=== PATIENT | female | born 1955 | race Caucasian/White ===

== ENCOUNTER 2024-04-20 08:14 | Emergency (ER) | payer MEDICARE, MEDICAID, SELFPAY ==
--- NOTE | ~2024-04-20 | CT_ITS ---
CT abdomen pelvis w con Ordering provider: Andres Johnson MD History: 68 years Female with . Suprapubic catheter pain, placed 03/24 . Comparison: None. Technique: CT abdomen and pelvis with IV and without oral contrast. Automated exposure control and it erative reconstruction technique were employed. The dose-length product was 530.55 mGy-cm. Findings: VISUALIZED LOWER CHEST: Underlying emphysematous changes.. UPPER ABDOMINAL ORGANS: Liver: Mild fat infiltration. Focal hypodensity is seen adjacent to the area of the interlobar fissur e suggestive of focal fat infiltration with possibility of a cyst in the area. Follow-up advised. Gallbladder: Status post cholecystectomy. Spleen: Normal. Stomach/duodenum: Small sliding hiatus hernia. Pancreas: Normal. Adrenals: Normal. Kidneys: Normal. PELVIC ORGANS: The bladder shows a suprapubic catheter. BOWEL AND MESENTERY: Colon: No evidence of diverticulitis. Fecal material is loaded in the colon. Appendix is not demonstr ated. Small Bowel: Normal. No obstruction. Peritoneum/mesentery: No free air or free fluid. No mesenteric lymphadenopathy. RETROPERITONEUM: Mild atheromatous disease of the abdominal aorta. Severe narrowing of the left comm on iliac artery. No retroperitoneal lymphadenopathy. MUSCULOSKELETAL: Superficial soft tissues: Anterior abdominal wall collection in the area of the pelvis is seen which measures 5.4 x 3.4 cm. This area is possibly a hematoma versus seroma versus urinoma. Further evaluat ion advised. Otherwise, The superficial soft tissues are normal. Bones: Age appropriate degenerative changes of the spine. IMPRESSION: 1. Suprapubic catheter with adjacent fluid collection which may be a seroma or hematoma or urinoma. 2. Constipation. Reviewed, dictated and finalized at location A. EACH LIBRARIAN
[2024-04-20 08:16] VITALS: BP 146/76; PULSE 95; RESP 18; TEMP 36.8; O2SAT 95
[2024-04-20 08:55] LABS: Basophils Percent Auto 0.3 % (0.2-1.2); Eosinophils Absolute Auto 0.3 K/mm3 (0-0.3); Eosinophils Percent Auto 4.2 % (0-4.4); Hematocrit 45.6 % (37.0-47.0); Hemoglobin 15.3 g/dL (12.0-15.0); Immature Granulocyte Absolute 0.02 K/mm3 (0.00-0.031); Immature Granulocyte Percent A 0.3 % (0-0.5); Lymphocytes Absolute Auto 1.34 K/mm3 (0.9-3.2); Lymphocytes Percent Auto 18.1 % (18.3-44.2); Mean Corpuscular HGB Conc 33.6 g/dl (32-36); Mean Corpuscular Hemoglobin 33.9 pg (26-34); Mean Corpuscular Volume 101.1 fl (80-100); Mean Platelet Volume 8.9 fl (7.4-10.4); Monocytes Absolute Auto 0.4 K/mm3 (0.1-0.6); Monocytes Percent Auto 5.8 % (2.6-8.5); Neutrophils Absolute Auto 5.3 K/mm3 (1.3-6.7); Neutrophils Percent Auto 71.3 % (45.5-73.1); Platelet Count Result 211 k/mm3 (150-375); Red Blood Count 4.51 M/mm3 (4.2-5.4); Red Cell Distribution Width 12.7 % (11.5-14.5); White Blood Count 7.4 K/mm3 (4.5-10.0)
[2024-04-20 09:03] LABS: Alanine Aminotransferase 21 U/L (6-35); Albumin Level 4.7 g/dL (3.5-5.1); Alkaline Phosphatase 59 U/L (38-126); Anion Gap 5 mmol/L (4-12); Aspartate Amino Transferase 27 U/L (14-36); Bilirubin,Total 0.3 mg/dL (0.2-1.3); Blood Urea Nitrogen 16 mg/dL (7-17); Calcium 9.7 mg/dL (8.4-10.2); Carbon Dioxide 32 mmol/L (22-30); Chloride 96 mmol/L (98-107); Estimated CRCL calculation 89 ml/min; Estimated Glomerular Filt Rate > 60; Glucose 127 mg/dL (65-110); Potassium 4.7 mmol/L (3.4-5.0); Sodium 133 mmol/L (137-145)
[2024-04-20] MEDS: HYDROmorphone HCL INJ (*CRX) 1 MG/ML SYR 0.5 MG IV PUSH ×2 (09:25→11:46)
[2024-04-20 09:27] LABS: Add Urine Microscopic? YES; Appearance Urine Cloudy (Clear); Bacteria Urine 4+ /hpf; Bilirubin Urine Negative (Negative); Blood Urine 3+ (Negative); Color Urine Yellow (Yellow); Glucose Urine UA Negative (Negative); Ketones Urine Negative (Negative); Leukocyte Esterase Ur 3+ LEU/UL (Negative); Need Manual Microscopic Reviewed; Nitrate Urine Negative (Negative); Non Pathogenic Casts 0-2; Protein Urine 2+ mg/dL (Negative); RBC Urine >100 /hpf (0-2); Specific Grav Ur 1.016 (1.001-1.035); Squamous Epithelial Cell Urine Few /hpf (Few); WBC Urine 51-100 /hpf (0-3); pH Urine 6.5 (5.0-9.0)
--- NOTE | 2024-04-20 10:17 | PC.NURSE ---
pt Sp02 dropped to 72%. pt placed on 2L 02. pt stated she wears oxygen at home when sleeping.
[2024-04-20 10:18] VITALS: BP 129/73; PULSE 95; RESP 18; O2SAT 98
--- NOTE | 2024-04-20 11:05 | PC.NURSE ---
Pt reports being incontinent of urine. Pt cleaned of urine with soap and water. Clean depend applied. Pt. verbalized appreciation. Pt repositioned in bed and provided with a warm blanket.
[2024-04-20 11:10] VITALS: BP 135/72; PULSE 85; RESP 16; O2SAT 99
[2024-04-20 11:48] VITALS: BP 127/64; PULSE 83; RESP 16; O2SAT 100
--- NOTE | 2024-04-20 11:51 | PC.NURSE ---
Pt saturated depend. Dirty depend removed, nida care performed and clean depend applied.
[2024-04-20 13:00] VITALS: BP 136/61; PULSE 87; RESP 16; O2SAT 97
--- NOTE | 2024-04-20 13:20 | PC.NURSE ---
Report called to [place] [facility]. All questions answered. Pt to be transferred via S ambulance.
--- NOTE | 2024-04-20 13:21 | ED_ITS ---
HPI - General Adult General Chief complaint: Urogenital-Female Stated complaint: abd pain Time Seen by Provider: 04/20/24 08:16 History of Present Illness HPI narrative: This is a 68-year-old female presenting ED with chief complaint of abdominal pain. She had a suprapubic catheter placed for neurogenic bladder at [facility] on March 24. Since then she has had leakage around the catheter and she has had increased pain and pressure at the site. The urine that is draining is dark but is still draining into the back. She is also having some urine from her urethra. She denies fevers chills nausea vomiting or diarrhea Related Data Home Medications Medication Instructions Recorded Confirmed acetaminophen 500 mg tablet 500 mg PO Q6H PRN 01/12/24 (Acetaminophen Extra Strength) amlodipine 2.5 mg tablet 2.5 mg PO DAILY 01/12/24 amlodipine 5 mg tablet 5 mg PO DAILY 01/12/24 atorvastatin 20 mg tablet 20 mg PO DAILY 01/12/24 biotin 1,000 mcg chewable tablet 1,000 mcg PO DAILY 01/12/24 blood sugar diagnostic 01/12/24 calcium-vit D3-ferrous fumarate tablet PO 01/12/24 600 mg-125 unit-18 mg tablet coenzyme Q10 100 mg capsule (Co 100 mg PO DAILY 01/12/24 Q-10) cyanocobalamin (vitamin B-12) 1,000 mcg PO DAILY 01/12/24 1,000 mcg capsule gabapentin 600 mg tablet 600 mg PO TID 01/12/24 lancets 01/12/24 levothyroxine 88 mcg capsule 88 mcg PO DAILY 01/12/24 liothyronine 5 mcg tablet 5 mcg PO DAILY 01/12/24 lysine 500 mg tablet (L-Lysine) 500 mg PO DAILY 01/12/24 metformin 500 mg tablet 500 mg PO BID 01/12/24 omega 1-wkj-myd-fish oil 300 1 cap PO TID 01/12/24 mg-1,000 mg capsule pramipexole 0.5 mg tablet 0.5 mg PO TID 01/12/24 tramadol 50 mg tablet 50 mg PO Q6H PRN 01/12/24 vitamins A,C,V-dsjb-dufeuq 2,148 2 tablet PO BID 01/12/24 mcg-113 mg-45 mg-17.4 mg tablet (PreserVision AREDS) Allergies Allergy/AdvReac Type Severity Reaction Status Date / Time baclofen Allergy eyes Verified 04/20/24 08:25 swollen cyclobenzaprine Allergy black outs Verified 04/20/24 08:25 1 CODIENE Allergy Unknown cold Uncoded 04/20/24 08:25 [facility] Past Medical History Medical History Allergies Arthritis Diabetes History of uterine cancer Thyroid disorder Surgical History Surgical History History of cholecystectomy Social History Social History Smoking packs per day: 1 Smoking cigarettes per day: 20.0 Smoking status: Current every day smoker Tobacco type: cigarettes Alcohol intake: never Substance use: never Substance use type: does not use Do You Feel Safe in your Home?: Yes Lack of Transportation: YES Lack of Food: Never True Current Housing: I Have Housing Concerned About Future Housing: No Difficulty Paying Gas/Electric Bills: No Difficulty Paying for Meds: No Currently Unemployed: No Education: Associate Degree Difficulty w/ Childcare or Family Care: No Exam Narrative: APPEARANCE: No apparent distress. Head: atraumatic. EYES: EOMI, NOSE: Atraumatic NECK: Trachea midline RESPIRATORY: No increased rate of breathing CARDIOVASCULAR: RRR, ABDOMINAL: Suprapubic catheter is in place, palpable tender mass superior to the catheter site, no surrounding erythema or redness, no cellulitis MUSCULOSKELETAl: No obvious deformities NEURO: Alert. Moving 4/4 extremities SKIN:: Warm, dry. Normal color PSYCHIATRIC: Normal affect Course Vital Signs Vital signs: Vital Signs Temperature 98.2 F 04/20/24 08:16 Pulse Rate 95 04/20/24 08:16 Respiratory Rate 18 04/20/24 08:16 Blood Pressure 146/76 H 04/20/24 08:16 Pulse Oximetry 95 04/20/24 08:16 Oxygen Delivery Room Air 04/20/24 08:16 Temperature 98.2 F 04/20/24 08:16 Pulse Rate 87 04/20/24 13:00 Respiratory Rate 16 04/20/24 13:00 Blood Pressure 136/61 04/20/24 13:00 Pulse Oximetry 97 04/20/24 13:00 Oxygen Delivery Room Air 04/20/24 08:16 Medical Decision Making MDM Narrative Medical decision making narrative: -Course: 68-year-old female presenting with pain around her suprapubic catheter site. CT abdomen pelvis showed a fluid collection around the site. Seroma versus abscess versus hematoma versus urinoma. Patient has no other signs of infection. Patient will be transferred to [facility] where her suprapubic catheter was installed for further management. Patient was accepted to the ED by Dr. Mcghee and Dr. Fernandes. -DDX includes but is not limited to:Seroma versus abscess versus hematoma versus urinoma. -Independent interpretation of studies: labs imaging reviewed -Discussion of Management/Consultants: Dr. Vides, Dr. Mcghee -Interventions:Dilaudid .5 x2 -Shared decision making / Disposition: transferred Vital Signs Vital Signs: Vital Signs Temperature 98.2 F 04/20/24 08:16 Pulse Rate 95 04/20/24 08:16 Respiratory Rate 18 04/20/24 08:16 Blood Pressure 146/76 H 04/20/24 08:16 Pulse Oximetry 95 04/20/24 08:16 Oxygen Delivery Room Air 04/20/24 08:16 Temperature 98.2 F 04/20/24 08:16 Pulse Rate 87 04/20/24 13:00 Respiratory Rate 16 04/20/24 13:00 Blood Pressure 136/61 04/20/24 13:00 Pulse Oximetry 97 04/20/24 13:00 Oxygen Delivery Room Air 04/20/24 08:16 Lab Data 04/20/24 08:49 04/20/24 08:49 Labs: Lab Results 04/20/24 04/20/24 Range/Units 08:44 08:49 WBC 7.4 (4.5-10.0) K/mm3 RBC 4.51 (4.2-5.4) M/mm3 Hgb 15.3 H (12.0-15.0) g/dL Hct 45.6 (37.0-47.0) % MCV 101.1 H (80-100) fl MCH 33.9 (26-34) pg MCHC 33.6 (32-36) g/dl RDW 12.7 (11.5-14.5) % Plt Count 211 (150-375) k/mm3 MPV 8.9 (7.4-10.4) fl Immature Gran % (Auto) 0.3 (0-0.5) % Neut % (Auto) 71.3 (45.5-73.1) % Lymph % (Auto) 18.1 L (18.3-44.2) % [place] % (Auto) 5.8 (2.6-8.5) % Eos % (Auto) 4.2 (0-4.4) % Baso % (Auto) 0.3 (0.2-1.2) % Lymph # (Auto) 1.34 (0.9-3.2) K/mm3 [place] # (Auto) 0.4 (0.1-0.6) K/mm3 Eos # (Auto) 0.3 (0-0.3) K/mm3 Baso # (Auto) 0.0 (0.0-0.1) K/mm3 Abs Immat Gran (auto) 0.02 (0.00-0.031) K/mm3 Absolute Neuts (auto) 5.3 (1.3-6.7) K/mm3 Absolute Nucleated RBC 0.000 (0.0-0.012) K/mm3 Nucleated RBC % 0.0 (0.0-0.2) % Sodium 133 L (137-145) mmol/L Potassium 4.7 (3.4-5.0) mmol/L Chloride 96 L (98-107) mmol/L Carbon Dioxide 32 H (22-30) mmol/L Anion Gap 5 (4-12) mmol/L BUN 16 (7-17) mg/dL Creatinine 0.50 L (0.7-1.0) mg/dL Estim Creat Clear Calc 89 ml/min Estimated GFR > 60 (59 - ) Glucose 127 H (65-110) mg/dL Calcium 9.7 (8.4-10.2) mg/dL Total Bilirubin 0.3 (0.2-1.3) mg/dL AST 27 (14-36) U/L ALT 21 (6-35) U/L Alkaline Phosphatase 59 (38-126) U/L Total Protein 8.0 (6.3-8.2) g/dL Albumin 4.7 (3.5-5.1) g/dL Urine Color Yellow (Yellow) Urine Appearance Cloudy H (Clear) Urine pH 6.5 (5.0-9.0) Ur Specific [place] 1.016 (1.001-1.035) Urine Protein 2+ H (Negative) mg/dL Urine Glucose (UA) Negative (Negative) mg/dL Urine Ketones Negative (Negative) mg/dL Ur Blood (Man) 3+ H (Negative) Urine Nitrate Negative (Negative) Urine Bilirubin Negative (Negative) Urine Urobilinogen 1.0 (<2.0) mg/dL Add Ur Microanalysis Reviewed Leukocyte Esterase Rfl 3+ H (Negative) JUAN/UL Urine RBC >100 H (0-2) /hpf Urine WBC 51-100 H (0-3) /hpf Ur Squamous Epith Cells Few (Few) /hpf Urine Bacteria 4+ H /hpf Urine Casts 0-2 Discharge Plan Discharge Clinical Impression: Urinoma Patient Disposition: Home, Self-Care Condition: Stable Instructions: Antibiotic Form Prescriptions: No Action acetaminophen [Acetaminophen Extra Strength] 500 mg tablet 500 mg PO Q6H PRN amlodipine 2.5 mg tablet 2.5 mg PO DAILY amlodipine 5 mg tablet 5 mg PO DAILY atorvastatin 20 mg tablet 20 mg PO DAILY biotin 1,000 mcg tablet,chewable 1,000 mcg PO DAILY fcfmeqi-[id number]-nmlgjqz fumarate 600-125-18 mg-unit-mg tablet PO coenzyme Q10 [Co Q-10] 100 mg capsule 100 mg PO DAILY omega 6-xoe-uex-fish oil 300-1,000 mg capsule 1 cap PO TID gabapentin 600 mg tablet 600 mg PO TID lysine [L-Lysine] 500 mg tablet 500 mg PO DAILY levothyroxine 88 mcg capsule 88 mcg PO DAILY liothyronine 5 mcg tablet 5 mcg PO DAILY metformin 500 mg tablet 500 mg PO BID (DME) lancets Misc See Rx Instructions .ROUTE Rx Instructions: As directed (DME) blood sugar diagnostic Strip See Rx Instructions .ROUTE Rx Instructions: As directed pramipexole 0.5 mg tablet 0.5 mg PO TID PreserVision AREDS 2,148 mcg-113 mg-45 mg-17.4mg tablet 2 tablet PO BID Rx Instructions: administer with AM and PM meals tramadol 50 mg tablet 50 mg PO Q6H PRN cyanocobalamin (vitamin B-12) 1,000 mcg capsule 1,000 mcg PO DAILY Follow-up/Referrals: Michelle,Kaye Pandey MD [Primary Care Provider] -
[2024-04-20 14:00] VITALS: BP 135/85; PULSE 85; RESP 16; O2SAT 95
[2024-04-20] MEDS: PRAMIPEXOLE 0.5 MG TABLET PO (14:11)
== END 2024-04-20 14:30 | disposition home or self-care (01) ==
PROVIDERS: Emergency Provider Emergency Medicine; PCP Emergency Medicine
DX: N36.8 Other specified disorders of urethra (principal); M19.90 Unspecified osteoarthritis, unspecified site; E11.9 Type 2 diabetes mellitus without complications; Z85.42 Personal history of malignant neoplasm of other parts of uterus; Z85.850 Personal history of malignant neoplasm of thyroid
CPT/HCPCS: 36415; 74177; 80053; 81001; 85025; 87086; 96374; 96376; 99284; A9270; J1171; Q9967

== ENCOUNTER 2024-08-09 10:31 | Outpatient (RCR) | payer MEDICARE, MEDICAID, SELFPAY ==
[2024-08-04 11:09] LABS: Hematocrit 37.3 % (37.0-47.0); Hemoglobin 11.5 g/dL (12.0-15.0); Mean Corpuscular HGB Conc 30.8 g/dl (32-36); Mean Corpuscular Hemoglobin 30.7 pg (26-34); Mean Corpuscular Volume 99.7 fl (80-100); Mean Platelet Volume 9.4 fl (7.4-10.4); Platelet Count Result 212 k/mm3 (150-375); Red Blood Count 3.74 M/mm3 (4.2-5.4); Red Cell Distribution Width 14.5 % (11.5-14.5); White Blood Count 5.5 K/mm3 (4.5-10.0)
[2024-08-04 11:28] LABS: Alanine Aminotransferase 32 U/L (6-35); Albumin Level 3.8 g/dL (3.5-5.1); Alkaline Phosphatase 77 U/L (38-126); Anion Gap 7 mmol/L (4-12); Aspartate Amino Transferase 48 U/L (14-36); Bilirubin,Total 0.3 mg/dL (0.2-1.3); Blood Urea Nitrogen 12 mg/dL (7-17); CRP 4.9 mg/dL (<1.0); Calcium 9.2 mg/dL (8.4-10.2); Carbon Dioxide 30 mmol/L (22-30); Chloride 102 mmol/L (98-107); Creatine Kinase 143 U/L (30-135); Estimated Glomerular Filt Rate > 60; Glucose 114 mg/dL (65-110); Potassium 4.5 mmol/L (3.4-5.0); Sodium 139 mmol/L (137-145)
--- OUTSIDE RECORDS SUMMARY | 2024-08-04 11:38 | XMS_ITS | CONTINUITY OF CARE DOCUMENT ---
Author Name danica jacquesdylan Address Unknown Organization [facility] Address [address] [place] [address] Phone [phone] Care Team Providers Care Mangle Feeder Name Role Phone Jose C Roberts MD Unavailable [phone] NGUYEN GUERRERO MD Unavailable [phone] NGUYEN GUERRERO MD Unavailable [phone] PROBLEMS Condition Status Date Provider Notes Chest pain active Jose C Roberts MD Leg edema, bilateral active Jose C Roberts MD Hypothyroidism active Jose C Roberts MD Hyperlipidemia active Jose C Roberts MD HTN essential active Jose C Roberts MD Insomnia active Jose C Roberts MD Neuropathy active Jose C Roberts MD Tobacco abuse active Jose C Roberts MD Hypertension active Jose C Roberts MD Preoperative cardiovascular examination active Jose C Roberts MD ENCOUNTERS Date Type Provider Location Encounter Diag nosis - In-person encounter Office Visit Jose C Roberts MD [place] [facility] - In-person encounter Office Visit Jose C Roberts MD [place] [facility] Preoperative cardiovascular examination - In-person encounter Office Visit Jose C Roberts MD [facility] Hypertension - In-person encounter Office Visit Jose C Roberts MD [place] [facility] Chest painLeg edema, bilateralHypothyroidismHyperlipidemiaHTN essentialInsomniaNeuropathyTobacco abuse VITAL SIGNS Date Observation Value Provider Body Mass Index (Ratio) 23.41 kg/m2 Natividad Roberts MD blood pressure, diastolic 69 mm[Hg] An genesis Cortes blood pressure, systolic 138 mm[Hg] Any jacquelin Cortes pulse rate 95 /min Azul Cortes oxygen saturation, oximetry 100 % Azul Cortes weight E&M 154 [lb_av] Azul Cortes blood pressure, cuff size large An genesis Cortes height E&M 68 [in_i] Azul Cortes Body Mass Index (Ratio) 24.93 kg/m2 Natividad Roberts MD blood pressure, cuff size regular Ke rri Nikuenekacie blood pressure, diastolic 81 mm[Hg] Ke rri Nikuenenfshine blood pressure, systolic 140 mm[Hg] Cam ri Dulce oxygen saturation, oximetry 96 % Valerie Dulce respiratory rate E&M 14 /min Valerie kevin pulse rate 96 /min Valerie West patiño weight E&M 164 [lb_av] Valerie Dericnenfe [facility] height E&M 68 [in_i] Valerie Nikuenenfe [facility] Body Mass Index (Ratio) 26.00 kg/m2 Natividad Roberts MD blood pressure, diastolic 96 mm[Hg] Ca therine Groves blood pressure, systolic 128 mm[Hg] Cat herine Groves oxygen saturation, oximetry 95 % Elizabet Leland respiratory rate E&M 16 /min Catheri ne Groves pulse rate 69 /min Elizabet Groves weight E&M 171 [lb_av] Elizabet Groves blood pressure, cuff size regular Ca therine Leland height E&M 68 [in_i] Elizabet Groves blood pressure, diastolic 70 mm[Hg] Li nkLogic blood pressure, systolic 130 mm[Hg] Ana kLogic Body Mass Index (Ratio) 25.85 kg/m2 Natividad Roberts MD blood pressure, diastolic 70 mm[Hg] Mecca Margret Blackman blood pressure, systolic 130 mm[Hg] Chrystal Gillettepadmini Blackman oxygen saturation, oximetry 97 % Tayla Blackman respiratory rate E&M 16 /min Karlee Blackman pulse rate 97 /min Tayla wells weight E&M 170 [lb_av] TaylaShobha wells height E&M 68 [in_i] Tayla Sabillon niallevita ALLERGIES Allergy Name Onset Date Reaction Criticality Status CODEINE High Criticality active BACLOFEN High Criticality active HISTORY OF MEDICATION USE Medication Status Instructions Dates Provider Indications Com ments losartan 100 mg tablet active TAKE 1 TABLET BY MOUTH DAILY Tayla Blackman loratadine 10 mg tablet active TAKE 1 TABLET BY MOUTH EVERY DAY IN THE MORNING Tayla Blackman norethindrone (contraceptive) 0.35 mg tablet active TAKE 1 TABLET BY MOUTH EVERY DAY Tayla Blackman pramipexole 0.5 mg tablet active TAKE 1 TABLET BY MOUTH THREE TIMES DAILY Tayla Blackman liothyronine 5 mcg tablet active TK 1 T PO QD B MEALS Tayla Blackman levothyroxine 88 mcg tablet active TAKE 1 TABLET BY MOUTH EVERY DAY Tayla Blackman amlodipine 5 mg tablet active TAKE 1 TABLET BY MOUTH EVERY DAY Tayla Blackman metformin 500 mg tablet active TK 1 T PO BID Tayla Blackman Combivent Respimat 20-100 mcg/actuation mist active 1 puff as directed four times a day Tayla Blackman dicyclomine 10 mg capsule active 1 capsule by mouth twice a day Tayla Blackman gabapentin 600 mg tablet active 1 tablet by mouth three times a day Tayla Blackman SOCIAL HISTORY Date Observation Value Provider social history E&M S moking History: Cesar candelaria currently smokes every day. Cesar candelaria has been counseled to quit. Jose C Roberts MD social history reviewed E&M revi ewed - no changes required Jose C Roberts MD smoking/tobacco cess ation, patient education and counseling yes Azul Sebastian number of years as a smoker 45 a Azul Sebastian smoking history, tot al pack/day 1 Azul Sebastian cigarette use yes Azul Sebastian smoking status Current every day smoker A alicia Sebastian social history E&M S moking History: Cesar candelaria currently smokes every day. P bari has been counseled to quit. Jose C Roberts MD social history reviewed E&M revi ewed - no changes required Jose C Roberts MD smoking/tobacco cess ation, patient education and counseling yes Valerie Cardona number of years as a smoker 45 a Valerie Cardona smoking history, tot al pack/day 1 Valerie Cardona cigarette use yes Valerie riojas smoking status Current every day smoker K erri Dulce smoking/tobacco cess ation, patient education and counseling yes Elizabet Groves number of years as a smoker 45 a Elizabet Groves smoking history, tot al pack/day 1 Elizabet Leland cigarette use yes Elizabet Leland smoking status Current every day smoker C atherine Groves smoking/tobacco cess ation, patient education and counseling yes Jose C Roberts MD social history E&M S moking History: P attamiko currently smokes every day. Jose C Roberts MD social history reviewed E&M vanessa cummings - no changes required Jose C Roberts MD number of years as a smoker 45 a Tayla Blackman smoking history, tot al pack/day 1 Tayla Blackman cigarette use yes Tayla Pedro chidi smoking status Current every day smoker Alexandr Blackman INSURANCE PROVIDERS Payer name Policy type / Coverage type [place] [employer] party ID UHC MEDICARE COMPLETE HMO Other [id number] [facility] Medicaid 9 [id number] ADVANCE DIRECTIVES Name Date DISCUSSED - NO DECISION MADE TREATMENT PLAN Date Name Performer [id number],C,S econdary to sitting in the wheelchair and probably due to some degree of pulmonary hypertension due to smoking. Jose C Roberts MD [id number],S, Jose C Roberts MD [id number],S, B P today: 138/69 P rior BP: 140/81 (04/11/2022) Her updated medication list for this problem includes: Losartan 100 Mg Tablet (Losartan) ..... Take 1 tablet by mouth daily Amlodipine 5 Mg Tablet (Amlodipine) ..... Take 1 tablet by mouth every day Jose C Roberts MD [id number],S, Jose C Roberts MD [id number],S, P t tests came back okay. Her heart function was normal. She does not have any blood clots in her legs from her venous study. Jose C Roberts MD [id number],C,I n the absense of any Sx related to ACS, I think she is low risk for her surgery and is clear Jose C Roberts MD [id number],B,W ill check echo otherwise a venous ultrasound to rule out DVT in the legs Jose C Roberts MD [id number],S, Jose C Roberts MD [id number],S, B P today: 140/81 P rior BP: 128/96 (10/11/2021) Jose C Roberts MD [id number],C,T he Patient was reencouraged to stop smoking. Jose C Roberts MD [id number],S,Counseled reg arding cessation Linette Rutledge NP [id number],S, Linette phillips NP [id number],B, H er updated medication list for this problem includes: Losartan 100 Mg Tablet (Losartan) ..... Take 1 tablet by mouth daily Amlodipine 5 Mg Tablet (Amlodipine) ..... Take 1 tablet by mouth every day Linette Rutledge NP [id number],B,L ower ext venous and arterial studies normal. Edema improved. No further testing indicated at this time. Echo showed normal EF with diastolic dysfunction Linette Rutledge NP [id number],C,1 ppd, advise d to quit. Jose C Roberts MD [id number],C,will do echo Jose C Roberts MD [id number],C,w ill do venous doppler reflux to assess. Jose C Roberts MD Cardiology:Secondary to sitting in the wheelchair and probably due to some degree of pulmonary hypertension due to smoking. Jose C Roberts MD Cardiology Jose C Roberts MD Cardiology: B P today: 138/69 P rior BP: 140/81 (04/11/2022) Her updated medication list for this problem includes: Losartan 100 Mg Tablet (Losartan) ..... Take 1 tablet by mouth daily Amlodipine 5 Mg Tablet (Amlodipine) ..... Take 1 tablet by mouth every day Jose C Roberts MD Telehealth Jose C Roberts MD Telehealth: P t tests came back okay. Her heart function was normal. She does not have any blood clots in her legs from her venous study. Jose C Roberts MD Cardiology:In the ab sense of any Sx related to ACS, I think she is low risk for her surgery and is clear Jose C Roberts MD Cardiology:Will chec k echo otherwise a venous ultrasound to rule out DVT in the legs Jose C Roberts MD Cardiology Jose C Roberts MD Cardiology: B P today: 140/81 P rior BP: 128/96 (10/11/2021) Jose C Roberts MD Cardiology:The Patient was reenc ouraged to stop smoking. Jose C Roberts MD Cardiology:Counseled regarding c essation Linette Rutledge NP Cardiology Linette Sykes P Cardiology: H er updated medication list for this problem includes: Losartan 100 Mg Tablet (Losartan) ..... Take 1 tablet by mouth daily Amlodipine 5 Mg Tablet (Amlodipine) ..... Take 1 tablet by mouth every day Linette Rutledge NP Cardiology:Lower ext venous and arterial studies normal. Edema improved. No further testing indicated at this time. Echo showed normal EF with diastolic dysfunction Linette Rutledge NP Cardiology:1 ppd, advised to antwan tGretta Roberts MD Cardiology:will do echo Jose C joyce MD Cardiology:will do venous dopple r reflux to assess. Jose C Roberts MD Date Name Complete Echo Venous Doppler Bilat eral LE - Reflux Arterial Duplex Bi-L ower EX Venous Doppler Bilat eral LE - Reflux Complete Echo HISTORY OF PROCEDURES Procedure Date Procedure Name Provider Procedure Notes S tatus EKG Jose C Roberts MD completed EKG Jose C Roberts MD completed
--- OUTSIDE RECORDS SUMMARY | 2024-08-04 11:38 | XMS_ITS | Data Portability ---
Author Organization [place] [facility] [employer], Main Office Address [address] [place] [address] Care Team Providers Care Food Service Driver Name Role Phone NGUYEN GUERRERO Primary Care Provider [phone] NGUYEN GUERRERO Referring Provider Assessment Encounter Date Assessment Date Assessment LastModified by Organization Details LastModified Time 10/30/2022 10/30/2022 This note is dictated and transcribed by [employer]. Judicial Assistant variances may occur. Despite proofreading, typographical errors may occur. [email or web address] Not available 10/30/2022 17:36:08 05/12/2023 05/12/2023 This note is dictated and transcribed by [employer]. Judicial Assistant variances may occur. Despite proofreading, typographical errors may occur. Occasional wrong-word or '[id number]' substitutions may have occurred due to the inherent limitations of voice recording. Read the chart carefully and recognize, using context, where substitutions have occurred. Not available 05/12/2023 11:28:58 06/23/2023 06/23/2023 This note is dictated and transcribed by [employer]. Judicial Assistant variances may occur. Despite proofreading, typographical errors may occur. Occasional wrong-word or '[id number]' substitutions may have occurred due to the inherent limitations of voice recording. Read the chart carefully and recognize, using context, where substitutions have occurred. Not available 06/25/2023 11:27:26 Plan of Treatment Reminders Order Date Submit Date Provider Last Modified By Organization Details Last Modified Time Details Appointments None recorded. Lab None recorded. Referral None recorded. Procedures None recorded. Surgeries None recorded. Imaging US, duplex, arterial, lower extremity, complete 2022 023 [facility] ([facility]), [address] [place], [address], 3 15:13:54 Medication Orders ammonium lactate 12 % lotion 2022 023 [id number], [address], [place], [place], [id number], 12:45:46 Patient TargetsNo targets recorded. Patient InstructionsNo instructions recorded. Reason for Referral None Reported. Results Created Date Observation Date Name Description Value Unit Range Abnormal Flag Note LastModifiedBy Organization Detail LastModifiedTime 07/24/1903/21/2022 LDCT, chest , for lung cance r david reed No observ ation record ed. [id number] Not Available 07/30/2022 04:52:09 05/29/20 23 05/27/2023 US, duple x, arter ial, lower extre mity, compl ete No observ ation record ed. [address] [place] [address] [address] [place], [address], 06/03/2023 10:32:50 04/01/20 24 03/31/2024 compl ete PFT w/ post [facility] hodil ator maxine metry * No observ ation record ed. BARCODE Not Available 2023 12:48:02 04/20/20 24 04/20/2024 CT, abdom en + pelvi s, w/ contr ast No observ ation record ed. [address], [place], [address], 04/20/2024 12:08:20 Result Notes None recorded. Problems Name Problem SNOMED Code Status Onset Date Resolution Date Notes Provider Name and Address Organization Details Recorded Time Overactive urinary bladder 962377505 Active 2022 David Shah MD [address] [facility], [place], [address] , [place] [facility] [employer] [facility] 3 10:15:19 Obstructive sleep apnea syndrome 51963165 Active 2022 Palma Haro MA null, [employer] [facility] 3 16:23:32 Dystrophia unguium 86089286 Active 2022 Hema Wood DPM [address], [address], [place], [address] , [employer] 3 17:36:12 Severe dry skin 102596925 Active 2022 Hema Wood DPM [address], [address], [place], [address] , [facility] [employer] 3 12:45:26 Peripheral arterial occlusive disease 398181192 Active 2022 Hema Wood DPM [address], [address], [place], [address] , [facility] [employer] 3 11:28:03 Cigarette smoker 05779697 Active 2022 Hema Wood DPM [address], [address], [place], [address] , [facility] 3 11:28:36 Dry skin dermatitis 516974726 Active 2021 Not Available [facility] 3 04:45:04 Osteoarthriti s 871887391 Active Not Available [facility] 3 04:45:04 Dyspnea on exertion 39659285 Active 2022 Not Available [facility] 3 04:45:04 Diabetes mellitus 52636996 Active Not Available [facility] 3 04:45:04 Sleep apnea 19113910 Active 2022 Not Available [facility] 3 04:45:04 Notes:Medical History: Depre ssion Ocular migraines Allergic conjunctivitis Allergic rhinitis with postnasal drip Bruxism Eosinophils 150/uL IgE 22 IU/mL Carotid artery stenosis Early REM sleep Mild OSAHS, AHI = 6, 10/04/21 Hypothyroidism Hyperlipidemia Hypertension T2DM with neuropathy AAT PiMM 152 mg% Nicotine dependence ?COPD on Trilogy c/o [facility] Hiatal hernia with TAMIKO Hepatic steatosis Diverticulosis/Diverticulitis Diarrhea-predominant IBS Vit D deficiency Sternal fracture RLS Cervical radiculopathy CTS Fibromyalgia Procedure History: Right breast lumpectomy 1971 WILNER 1985 Appendectomy 1989 Cholecystectomy 1994 Bilateral cataract extractions with IOL 2017 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 Procedures Surgical History Date Name Laterality Status Provider Name and Address Organization Details Recorded Time 05/12/20 23 Nail Debridement completed Hema Wood DPM [address], [place], [address], [employer] 05/12/2023 11:45:53 02/11/20 23 Nail Debridement completed Hema Wood DPM [address], [address], [place], [address], [employer] 02/12/2023 14:14:32 10/31/19 23 Nail Debridement completed Hema Wood DPM [address], [place], [address], [employer] 10/30/2022 17:35:03 Appendectomy completed Not Available [facility] 07/30/2022 04:40:56 Hysterectomy, Partial completed Not Available [facility] 07/30/2022 04:40:56 Breast Biopsy completed Not Available [facility] 07/30/2022 04:40:56 Cataract Surgery completed Not Available [facility] 07/30/2022 04:40:56 Imaging Results Imaging Date Name Status LastModified by Organization Details LastModified Time 03/21/2022 LDCT, chest, for lung cancer screening completed [id number] Information not available 07/30/2022 04:52:09 05/27/2023 US, duplex, arterial, lower extremity, complete completed [address], [place], [address], 06/03/2023 10:32:50 03/31/2024 complete PFT w/ post bronchodilator spirometry* completed BARCODE Information not available 04/01/2024 12:48:02 04/20/2024 CT, abdomen + pelvis, w/ contrast completed [place] [address] [facility] [address], [place], [address], 04/20/2024 12:08:20 Procedure Notes None recorded. Medical Equipment None Reported. Allergies Allergen ID Allergen Name Allergen Category Reaction Reaction Severity Criticality Documentation Date Start Date Code Code System Note Provider Name and Address Organization Details Recorded Time 6880 cyclobenz aprine medicatio n Not available Not available Not available 07/30/2022 44840 RxNorm Not Available [facility] 3 04:51:45 6881 codeine medicatio n Not available Not available Not available 07/30/2022 2670 RxNorm Not Available [facility] 3 04:51:45 6882 baclofen medicatio n Not available Not available Not available 07/30/2022 1292 RxNorm Not Available [facility] 3 04:51:45 Medications Name Sig Start Date Stop Date Status Note LastModified by Organization Details LastModified Time cyclobenzap rine 10 mg tablet TK 1 T PO QD HS active Not Available Not Available No t Available amoxicillin 500 mg capsule 09/16 completed Not Available Not Available Not Available pramipexole 1 mg tablet TK 1 T PO BID. 09/16 completed Not Available Not Available Not Available metformin 500 mg tablet TAKE 1 TABLET BY MOUTH TWICE DAILY active Not Available Not Available No t Available Tylenol 500 mg capsule Take 2 tablets every 6 hours by oral route. 07/10 completed Not Available Not Available Not Available gabapentin 600 mg tablet TAKE 1 TABLET BY MOUTH THREE TIMES DAILY DIRECTED active Not Available Not Available No t Available doxycycline hyclate 100 mg capsule TAKE ONE CAPSULE BY MOUTH DAILY 09/16 completed Not Available Not Available Not Available atorvastati n 20 mg tablet active Not Available Not Available Not Available ammonium lactate 12 % lotion APPLY TOPICALLY TO FEET TWICE DAILY NEEDED active Not Available Not Available No t Available trazodone 50 mg tablet TAKE 1/2 TO 1 TABLET BY MOUTH EVERY NIGHT AT BEDTIME 03/20 completed Not Available Not Available Not Available atorvastati n 10 mg tablet TK 1 T PO QD. 01/14 completed Not Available Not Available Not Available oxybutynin chloride ER 10 mg tablet,exte nded release 24 hr active Not Available Not Available Not Available azithromyci n 250 mg tablet TK 2 TS PO ON DAY 1, THEN TK 1 T PO D FOR 4 DAYS AFTER A MEAL. active Not Available Not Available No t Available ibuprofen 800 mg tablet TAKE 1 TABLET BY MOUTH THREE TIMES DAILY WITH FOOD 09/16 completed Not Available Not Available Not Available fluconazole 150 mg tablet TAKE 1 BY MOUTH EVERY 2 WEEKS active Not Available Not Available No t Available sumatriptan 100 mg tablet TK 1 T PO PRN active Not Available Not Available No t Available tolterodine ER 4 mg capsule,ext ended release 24 hr active Not Available Not Available Not Available Nystop 100,000 unit/gram topical powder 09/16 completed Not Available Not Available Not Available sodium bicarbonate 325 mg tablet TAKE 1 TABLET BY MOUTH TWICE DAILY active Not Available Not Available No t Available meloxicam 15 mg tablet TK 1 T PO QD WAC active Not Available Not Available No t Available prednisone 20 mg tablet TAKE 3 TABLETS BY MOUTH DAILY 09/16 completed Not Available Not Available Not Available gabapentin 400 mg capsule 09/16 completed Not Available Not Available Not Available olanzapine 5 mg tablet 09/16 completed Not Available Not Available Not Available olanzapine 10 mg tablet 03/20 completed Not Available Not Available Not Available amlodipine 2.5 mg tablet TAKE 1 TABLET BY MOUTH DAILY IN THE MORNING 09/16 completed Not Available Not Available Not Available amlodipine 5 mg tablet TAKE 1 TABLET BY MOUTH EVERY DAY active Not Available Not Available No t Available ciprofloxac in 500 mg tablet TAKE 1 TABLET BY MOUTH EVERY 12 HOURS FOR 10 DAYS 01/10 completed Not Available Not Available Not Available sulfamethox azole 800 mg-trimetho prim 160 mg tablet TAKE 1 TABLET BY MOUTH EVERY 12 HOURS FOR 5 DAYS active Not Available Not Available No t Available liothyronin e 5 mcg tablet TAKE 1 TABLET BY MOUTH EVERY DAY BEFORE A MEAL active Not Available Not Available No t Available aspirin 81 mg tablet,elver yed release TAKE 1 TABLET BY MOUTH EVERY DAY active Not Available Not Available No t Available tramadol 50 mg tablet TAKE 1 TABLET BY MOUTH EVERY 4 TO 6 HOURS NEEDED active Not Available Not Available No t Available triamcinolo ne acetonide 0.1 % topical cream APPLY A THIN LAYER TO THE AFFECTED AREA(S) BY TOPICAL ROUTE daily active Not Available Not Available No t Available pramipexole 0.5 mg tablet TAKE 1 TABLET BY MOUTH THREE TIMES DAILY active Not Available Not Available No t Available levothyroxi ne 88 mcg tablet TAKE 1 TABLET BY MOUTH EVERY DAY active Not Available Not Available No t Available famotidine 20 mg tablet TK 1 T PO QD. 03/20 completed Not Available Not Available Not Available estradiol 1 mg tablet TAKE 1 TABLET BY MOUTH DAILY 09/16 completed Not Available Not Available Not Available gabapentin 800 mg tablet 09/16 completed Not Available Not Available Not Available cephalexin 500 mg capsule active Not Available Not Available Not Available nystatin 100,000 unit/gram topical cream APPLY TOPICALLY TO THE AFFECTED AREA TWICE DAILY 07/10 completed Not Available Not Available Not Available clotrimazol e-betametha sone 1 %-0.05 % topical cream DARRYL AA OF GROIN BID 09/19 completed Not Available Not Available Not Available L-Lysine 1,000 mg tablet Take by oral route. 07/10 completed Not Available Not Available Not Available gabapentin 300 mg capsule 09/16 completed Not Available Not Available Not Available alcohol swabs USE TO CHECK BLOOD SUGAR ONCE DAILY active Not Available Not Available No t Available gabapentin 100 mg capsule TK 1 C PO TID. 09/19 completed Not Available Not Available Not Available estradiol 0.5 mg tablet TAKE 1 TABLET BY MOUTH EVERY DAY 03/20 completed Not Available Not Available Not Available ibuprofen 600 mg tablet 09/16 completed Not Available Not Available Not Available estradiol 0.01% (0.1 mg/gram) vaginal cream active Not Available Not Available Not Available albuterol sulfate HFA 90 mcg/actuati on aerosol inhaler INHALE 2 PUFFS BY MOUTH EVERY 4 HOURS NEEDED 03/20 completed Not Available Not Available Not Available Vitamin D2 1,250 mcg (50,000 unit) capsule active Not Available Not Available Not Available norethindro ne (contracept linwood) 0.35 mg tablet TAKE 1 TABLET BY MOUTH EVERY DAY 03/20 completed Not Available Not Available Not Available losartan 100 mg tablet TAKE 1 TABLET BY MOUTH DAILY active Not Available Not Available No t Available fluticasone propionate 50 mcg/actuati on nasal spray,suspe nsion SHAKE LIQUID AND USE 1 SPRAY IN EACH NOSTRIL TWICE DAILY 03/20 completed Not Available Not Available Not Available metformin ER 500 mg tablet,exte nded release 24 hr TAKE 1 TABLET BY MOUTH EVERY DAY active Not Available Not Available No t Available dicyclomine 10 mg capsule TAKE 1 CAPSULE BY MOUTH TWICE DAILY 30 MINUTES BEFORE FOOD. MAY INCREASE TO 4 TIMES DAILY NEEDED active Not Available Not Available No t Available loratadine 10 mg tablet TAKE 1 TABLET BY MOUTH EVERY DAY IN THE MORNING active Not Available Not Available No t Available glipizide 5 mg tablet TK 1/2 T PO BID. 03/20 completed Not Available Not Available Not Available progesteron e micronized 100 mg capsule TAKE 1 CAPSULE BY MOUTH DAILY 03/20 completed Not Available Not Available Not Available amoxicillin 875 mg-potassiu m clavulanate 125 mg tablet TAKE 1 TABLET BY MOUTH TWICE DAILY active Not Available Not Available No t Available amoxicillin 500 mg-potassiu m clavulanate 125 mg tablet TAKE 1 TABLET BY MOUTH EVERY 12 HOURS FOR 5 DAYS active Not Available Not Available No t Available oxycodone 5 mg tablet active Not Available Not Available No t Available nitrofurant oin monohydrate /macrocryst als 100 mg capsule TAKE 1 CAPSULE BY MOUTH EVERY 12 HOURS FOR 5 DAYS active Not Available Not Available No t Available duloxetine 30 mg capsule,del ayed release TAKE 1 CAPSULE BY MOUTH EVERY DAY AT NOON FOR 7 DAYS active Not Available Not Available No t Available duloxetine 60 mg capsule,del ayed release TAKE 1 CAPSULE BY MOUTH EVERY DAY IN THE EVENING 03/20 completed Not Available Not Available Not Available omega-3 acid ethyl esters 1 gram capsule TAKE 2 CAPSULES BY MOUTH TWICE DAILY AFTER MEALS active Not Available Not Available No t Available darifenacin ER 15 mg tablet,exte nded release 24 hr active Not Available Not Available Not Available Fish Oil 07/10 completed Not Available Not Available Not Available Calcium 600 07/10 completed Not Available Not Available Not Available aripiprazol e 2 mg tablet TK 1 T PO QD. 03/20 completed Not Available Not Available Not Available calcium 600 mg (as carbonate)- vitamin D3 10 mcg (400 unit) tablet TAKE 2 TABLETS BY MOUTH ONCE DAILY DIRECTED active Not Available Not Available No t Available hydrochloro thiazide 12.5 mg tablet TAKE 1 TABLET BY MOUTH EVERY DAY active Not Available Not Available No t Available budesonide- formoterol HFA 160 mcg-4.5 mcg/actuati on aerosol inhaler INHALE 2 PUFFS BY MOUTH TWICE DAILY 03/20 completed Not Available Not Available Not Available Calcium 500 With D 500 mg-10 mcg (400 unit) tablet TAKE 2 TABLETS BY MOUTH EVERY DAY DIRECTED active Not Available Not Available No t Available cholecalcif ashwini (vitamin D3) 1,250 mcg (50,000 unit) capsule TAKE ONE CAPSULE BY MOUTH EVERY WEEK DIRECTED . active Not Available Not Available No t Available trospium ER 60 mg capsule,ext ended release 24 hr active Not Available Not Available Not Available OneTouch Verio test strips USE TO CHECK BLOOD SUGAR ONCE DAILY active Not Available Not Available No t Available Combivent Respimat 20 mcg-100 mcg/actuati on solution for inhalation INHALE 1 INHALATIO N BY MOUTH FOUR TIMES DAILY FOR 10 DAYS NEEDED 03/20 completed Not Available Not Available Not Available Myrbetriq 50 mg tablet,exte nded release TAKE 1 TABLET BY MOUTH EVERY DAY active Not Available Not Available No t Available OneTouch Verio Flex Meter 09/16 completed Not Available Not Available Not Available OneTouch Delica Plus Lancet 33 gauge USE TO CHECK BLOOD SUGAR ONCE EVERY DAY 07/10 completed Not Available Not Available Not Available OneTouch Delica Plus Lancet 30 gauge USE TO CHECK BLOOD SUGAR ONCE DAILY active Not Available Not Available No t Available Vitals Date Recorded Body height Oxygen saturation Oxygen saturation in Arterial blood by Pulse oximetry Heart rate Body temperature Provider Name and Address Organization Details Last Updated DateTime 3 172.72 cm 93 % 93 % 99 /min 97.7 [degF] Not Available [facility] 3 04:43:16 Date Recorded Body height Heart rate Respiratory rate Oxygen saturation Oxygen saturation in Arterial blood by Pulse oximetry Systolic blood pressure Diastolic blood pressure Provider Name and Address Organization Details Last Updated DateTime 3 172.72 cm 104 /min 14 /min 97 % 97 % 106 mm[Hg] 60 mm[Hg] Dee Dee Raymundo Faisal AL [employer] [place] [facility] 3 16:58:39 Date Recorded Body height Heart rate Respiratory rate Oxygen saturation Oxygen saturation in Arterial blood by Pulse oximetry Systolic blood pressure Diastolic blood pressure Provider Name and Address Organization Details Last Updated DateTime 3 172.72 cm 104 /min 14 /min 97 % 97 % 106 mm[Hg] 60 mm[Hg] Mimi Sheldon [facility] [employer] [facility] 3 16:03:05 Date Recorded Body height Heart rate Respiratory rate Oxygen saturation Oxygen saturation in Arterial blood by Pulse oximetry Systolic blood pressure Diastolic blood pressure Provider Name and Address Organization Details Last Updated DateTime 3 172.72 cm 96 /min 14 /min 98 % 98 % 111 mm[Hg] 63 mm[Hg] Dee Dee Hearn [place] [facility] [employer] [place] [facility] 3 11:18:28 Social History Question Answer Notes LastModified by Organizat ion Details LastModified Time Tobacco Smoking Status Current Every Day Smoker Not Available [facility] 07/30/2022 04:29:52 What Is Your Level Of Caffeine Consumption? Moderate [id number] Information not available 07/30/2022 In The 14 Days Before Symptom Onset, Have You Had Close Contact With A Laboratory-confir med COVID-19 While That Case Was Ill? No [id number] Information not available 07/30/2022 In The 14 Days Before Symptom Onset, Have You Had Close Contact With A Person Who Is Under Investigation For COVID-19 While That Person Was Ill? No [id number] Information not available 07/30/2022 What Was The Date Of Your Most Recent Tobacco Screening? 01/14/2022 [id number] Information not available 07/30/2022 What Is Your Current Pack Years? 30ormorepack years [id number] Information not available 07/30/2022 How Much Tobacco Do You Smoke? 1 PPD 1-2 Packs A Day [id number] Information not available 07/30/2022 Do You Use Any Illicit Or Recreational Drugs? No [id number] Information not available 07/30/2022 Has Tobacco Cessation Counseling Been Provided? No [id number] Information not available 07/30/2022 Have You Recently Traveled Abroad? No [id number] Information not available 07/30/2022 Do You Or Have You Ever Used Any Other Forms Of Tobacco Or Nicotine? No [id number] Information not available 07/30/2022 Sex: Unknown Functional Status None recorded. Mental Status None recorded. Family History Relationship Description Onset Age of this Age Resolved Age Notes LastModified by Organization Details LastModified Time Mother Malignant tumor of ovary [id number] Not available 07/30/2022 04:41:00 Mother Hypertensive disorder [id number] Not available 07/30/2022 04:41:00 Sister Malignant tumor of breast [id number] Not available 07/30/2022 04:41:00 Maternal Aunt Malignant tumor of breast [id number] Not available 07/30/2022 04:41:00 Maternal Aunt Malignant tumor of colon [id number] Not available 07/30/2022 04:41:00 Maternal Grandmother Malignant tumor of cervix [id number] Not available 07/30/2022 04:41:00 Medical History Condition Response CYSTITIS N BLINDNESS N RHEUMATIC FEVER N KIDNEY STONES N BLADDER PROBLEMS N Enlarged Prostate N SLEEP APNEA N MRSA N INFECTIOUS DISEASE N LUNG DISEASE/DISORDER N HEART ARRHYTHMIA N PROSTATE N INSOMNIA N HISTORY OF DRUG ABUSE N RADIATION / CHEMOTHERAPY N COPD N HIGH CHOLESTEROL / HYPERLIPIDEMIA N HYPERTHYROIDISM N UTI N BLOOD DISEASES N EDEMA N HYPOTHYROIDISM N SHINGLES N DEPRESSION (INCLUDING POST ) N BOWEL PROBLEMS N BACK / NECK PROBLEMS N HAVE YOU BEEN HOSPITALIZED OR SEEN IN [facility] ER IN THE PAST YEAR ? N STROKE/TIA N THYROID DISEASE N BENIGN PROSTATIC HYPERPLASIA N DIALYSIS N OBESITY N GERD/NAUSEA N ANEURYSM N OSTEOPOROSIS N URINARY/BLADDER/KIDNEY PROBLEMS N Increased Urination N CORONARY ARTERY DISEASE (CAD) N ARTHRITIS Y USE OF BLOOD THINNERS N NO SIGNIFICANT PAST MEDICAL HISTORY N DIABETES, TYPE Y EMPHYSEMA N PARKINSON N GASTROINTESTINAL DISORDER N GASTROINTESTINAL BLEEDING N BLOOD CLOTS N Difficulty Urinating N HEPATITIS / LIVER DISEASE N ASTHMA N CATARACTS Y GOUT N SLEEP DISORDER N ALZHEIMER'S DISEASE N HERPES N ERECTILE DYSFUNCTION N SEIZURES/EPILEPSY N HEADACHES/MIGRAINES N GI PROBLEMS N PACEMAKER N Low Testosterone N HEART MURMUR N DIZZINESS N KIDNEY DISEASE N HEART DISEASE/HEART PROBLEMS N AIDS/HIV N MULTIPLE SCLEROSIS N LIVER DISEASE N MALE HYPOGONADISM N HYPERTENSION Y CANCER: SPECIFY N TOURETTE'S N BLOOD TRANSFUSION N ANESTHESIA COMPLICATIONS N ANEMIA/BLOOD DISORDER N ATRIAL FIBRILLATION N AUTOIMMUNE DISEASE N TUBERCULOSIS N GLAUCOMA N Gynecological HistoryNo gynecological history recorded. Obstetrics History GPAL:G 0 P 0 0 0 0 Immunizations Vaccine Type Date Status Note Provider Nam e and Address Organization Details Recorded Time COVID-19, mRNA, LNP-S, PF, 100 mcg/0.5mL dose or 50 mcg/0.25mL dose 09/23/2021 completed Not Available [facility] 3 04:51:37 COVID-19, mRNA, LNP-S, PF, 100 mcg/0.5mL dose or 50 mcg/0.25mL dose 04/08/2021 completed Not Available [facility] 3 04:51:37 COVID-19, mRNA, LNP-S, PF, 100 mcg/0.5mL dose or 50 mcg/0.25mL dose 08/24/2020 completed Not Available [facility] 3 04:51:37 COVID-19, mRNA, LNP-S, PF, 100 mcg/0.5mL dose or 50 mcg/0.25mL dose 07/27/2020 completed Not Available [facility] 3 04:51:37 Past Encounters Encounter ID Performer Location Encounter Start Date Encounter Closed Date Diagnosis/Indication Diagnosis SNOMED-CT Code Diagnosis ICD10 Code Diagnosis Note [id number] _ATHENA_M IGRATION_ DEFAULT_1 _1 , 09/07/2020 00:00:00 09/13/2020 09:23:31 [id number] _ATHENA_M IGRATION_ DEFAULT_1 _1 , 12/07/2020 00:00:00 12/10/2020 08:34:36 [id number] _ATHENA_M IGRATION_ DEFAULT_1 _1 , 03/08/2021 00:00:00 03/11/2021 10:38:14 [id number] _ATHENA_M IGRATION_ DEFAULT_1 _1 , 06/14/2021 00:00:00 06/17/2021 14:07:58 [id number] [facility] [address] [address] 09/26/2021 00:00:00 11/11/2021 17:17:31 [id number] _ATHENA_M IGRATION_ DEFAULT_1 _1 , 10/18/2021 00:00:00 10/21/2021 09:52:59 [id number] [facility] [place] 25 [place] [address], [facility] [address] [place] [address] 01/14/2022 00:00:00 01/14/2022 10:43:06 [id number] [facility] [address], [address] [address] 03/20/2022 00:00:00 04/03/2022 09:16:35 [id number] [facility] [address] [address] 07/17/2022 00:00:00 07/17/2022 13:22:21 [id number] Hema Wood DPM [facility] Pod[facility] [address], [address] [address] 10/30/2022 16:27:42 10/30/2022 17:41:34 Diabetes mellitus 43428567 E11.40 L60.0 M79.676 Z74.1 Continue with PCP recommenda tions Dystrophia unguium 33178 009 L60.3 Nails 1 through 10 were debrided with sharp mechanical debridemen t without incident. Nails were debrided and greater than 50% length and thickness where needed. [id number] eHma Wood DPM [facility] Pod[facility]ry [address], [address] [address] 02/10/2023 12:21:37 02/13/2023 10:55:26 Diabetes mellitus 42175250 E11.40 L60.0 M79.676 Z74.1 Continue with PCP recommenda tionsCheck feet daily for wounds infectionC ontinue supportive shoe gearFollow -up in 3 months for diabetic foot care Dystrophia unguium 13602 009 L60.3 Nails 1 through 10 were debrided with sharp mechanical debridemen t without incident. Nails were debrided and greater than 50% length and thickness where needed. Severe dry skin [id number] 2 L85.3 [id number] Hema Wood DPM [facility] Podiatry [address], [address] [place] [address] 05/12/2023 11:08:44 05/12/2023 12:49:20 Diabetes mellitus 79603195 E11.40 L60.0 M79.676 Z74.1 Continue with PCP recommenda tionsCheck feet daily for wounds infectionC ontinue supportive shoe gearFollow -up in 3 months for diabetic foot care Dystrophia unguium 29867 009 L60.3 nails debrided without incident Peripheral arterial occlusive disease [id number] I73.9 last vascular testing 2020, repeat Cigarette smoker 2901353 7 F17.210 encouraged to discontinu e smokingSid e effects of smoking reviewed with the patient [id number] Hema Wood DPM [facility] [place] [address] [facility], [facility] [address] [place] [address] 06/25/2023 09:03:44 07/01/2023 08:06:46 Peripheral arterial occlusive disease 892692287 I73.9 testing reviewed Cigarette smoker 8512923 7 F17.210 encouraged to discontinu e smokingSid e effects of smoking reviewed with the patient Dystrophia unguium 95853 009 L60.3 nails debrided without incident Health Concerns Section Related Observation LastModified by Organization Detai ls LastModified Time None Recorded Concern Status LastModified by Organization Details LastModified Time None Recorded Advance Directives Directive None Recorded Payers Encounter Date Sequence Insurance Name Policy Number Policy Munoz Covered Member ID Munoz Member ID Guarantor Name 10/30/2022 2 [place] [facility] May Louis [id number] May Myers 10/30/2022 1 [facility] (MEDICARE REPLACEMENT/A DVANTAGE - HMO) [id number] May Myers [id number] May Myers 02/10/2023 2 [place] [facility] May Louis [id number] May Myers 02/10/2023 1 [facility] (MEDICARE REPLACEMENT/A DVANTAGE - HMO) [id number] May Danielsro [id number] May Danielsro 05/12/2023 2 [place] [facility] May Louis [id number] May Myers 05/12/2023 1 [facility] (MEDICARE REPLACEMENT/A DVANTAGE - HMO) [id number] May Myers [id number] May Myers 06/23/2023 2 [place] [facility] May Myers [id number] May Myers 06/23/2023 1 [facility] (MEDICARE REPLACEMENT/A DVANTAGE - HMO) [id number] May Myers [id number] May Myers Notes Date Note Type Note Provider Name and Address Organization Details Recorded Time 10/30/2022 text/html Patient is a 66-year-old female diabetic who presents to the office for follow-up on diabetic foot exam. Patient states overall she is doing well. Patient states her toenails are thick and painful. Patient states she has no cramping of the lower extremity. Patient denies any wounds or infection of the feet. Patient denies any other complaints. Hema Wood DPM [address], [place], [address], [employer] 10/30/2022 17:36:48 02/10/2023 text/html . Patient is a 67-year-old female diabetic who returns the office for diabetic foot care. Patient denies any open wounds or infection. Patient states her nails are long would like to have them cut and has dry skin. Patient would like a refill the Amlactin as she is out. Patient denies any other complaints. Hema Wood DPM [address], [place], [address], [employer] 02/12/2023 14:14:40 05/12/2023 text/html . Patient is a 67-year-old diabetic female who returns for diabetic foot care. Patient overall states she is doing well. Patient presents in wheelchair as she is unable to walk long distances. Patient states that she continues to smoke. Patient denies knowing exactly how much she smokes. Patient denies any calf pain but does not walk long distances. Patient denies any other pedal complaints. Hema Wood DPM [address], [place], [address], [employer] 05/12/2023 11:46:16 OBGyn Episode No OBEpisode recorded.
--- OUTSIDE RECORDS SUMMARY | 2024-08-04 11:38 | XMS_ITS | Patient Health Record ---
Author Organization [facility] Address [address] [place], [place] [id number] Care Team Providers Care Sparker And Patcher Name Role Phone CASSANDRAPOP HORTENSIA Unavailable [phone] Kaye Martinez Unavailable Unavailable Allergies Allergen (clinical drug ingredient) Drug/Non Drug Allergy documented on EMR Reaction Allergy Type Onset Date Status codeine Codeine Unknown Drug Allergy Active cyclobenzaprine Cyclobenzaprine Unknown Drug Allergy Active Reason For Referral No Information Vital Signs Height-cm 172.72 cm 03/03/2024 Weight-kg 69.85 kg 03/03/2024 Height 68 in 03/03/2024 Weight 154 lbs 03/03/2024 BMI 23.41 kg/m2 03/03/2024 Encounters Encounter Location Date Provider Diagnosis [facility] [place] [address] [place], [place] [id number] 12/10/2023 HORTENSIA VILLALOBOS Fungal infection of nail B35.1 ; Contusion of left great toe without damage to nail, initial encounter S90.112A ; Unspecified atherosclerosis of [place] arteries of extremities, bilateral legs I70.203 and Pain in left toe(s) M79.675 [facility] [place] [address] [place], [place] [id number] 03/03/2024 HORTENSIA VILLALOBOS Fungal infection of nail B35.1 ; Pain in left toe(s) M79.675 ; Pain in right toe(s) M79.674 ; Unspecified atherosclerosis of [place] arteries of extremities, bilateral legs I70.203 and Contusion of left great toe without damage to nail, subsequent encounter S90.112D Assessments Encounter Date Diagnosis (ICD Code) Assessment Notes Treatment Notes Treatment Clinical Notes Section Notes 12/10/2023 Contusion of left great toe without damage to nail, initial encounter (ICD-10 - S90.112A) 12/10/2023 Fungal infection of nail (ICD-10 - B35.1) Nails 1-5 Bilateral were debrided extensively with nail nippers and emery board, reducing length and girth to pink healthy tissue with any subungual debris and necrotic tissue removed 03/03/2024 Pain in left toe(s) (ICD-10 - M79.675) 03/03/2024 Fungal infection of nail (ICD-10 - B35.1) Nails 1-5 Bilateral were debrided extensively with nail nippers and emery board, reducing length and girth to pink healthy tissue with any subungual debris and necrotic tissue removed 03/03/2024 Pain in right toe(s) (ICD-10 - M79.674) 12/10/2023 Unspecified atherosclerosis of [place] arteries of extremities, bilateral legs (ICD-10 - I70.203) 12/10/2023 Pain in left toe(s) (ICD-10 - M79.675) 03/03/2024 Unspecified atherosclerosis of [place] arteries of extremities, bilateral legs (ICD-10 - I70.203) 03/03/2024 Contusion of left great toe without damage to nail, subsequent encounter (ICD-10 - S90.112D) Plan Of Treatment No Information Insurance Providers Payer Name Payer Address Payer Phone Subscriber Number Group Number Insured Name Patient Relationship to Insured Coverage Start Date Coverage End Date [facility] [address] [address] [place] [address] [id number] TORITORITIKA MONROY Self - patient is the insured Medical (General) History Medical History History ICD Code fibromyalgia neuropathy Pneumonia Cancer (type of cancer) Leg/Feet cramps Arthritis Bladder infections Sleep apnea Thyroid Disease Back Trouble Diabetic hypertension peripheral vascular disease restless leg syndrome Surgical History Surgery Date(Month/Year) Hysterectomy appendectomy Wrist Surgery Gall Bladder Cataract extration Left leg
--- OUTSIDE RECORDS SUMMARY | 2024-08-04 11:38 | XMS_ITS ---
Author Organization [facility] Address [address] [place], [place] [id number] Care Team Providers Care Clinical Laboratory Medical Director Name Role Phone HORTENSIA BAKER Unavailable [phone] Kaye Martinez Unavailable Unavailable REASON FOR VISIT *General care Encounters Encounter Location Date Provider Diagnosis [facility] [place] [address] [place], [place] [id number] 05/26/2024 HORTENSIA BAKER Plan Of Treatment No Information Progress Notes * RITIKA UGARTEDOB:1955 ( 68 yo F)Acc No.[id number]:05/26/2024 Patient: RITIKA VALDEZ Provider: Natasha Baker DPM :1955 A ge:68 Y S ex:Female Date:05/26/2024 Address:[address] [facility] Subjective: * Chief Complaints: * 1 . *General care. * Medical History: Objective: * Vitals: Assessment: Plan: * Treatment: * Billing Information: * Visit Code: * Procedure Codes: * Electronic signature of HORTENSIA BAKER DPM on 08/04/2024 at 11:38 AM BRIDGE OPERATOR Sign off status: Pending * Provider: Natasha Baker DPM Date: 07/27/2023 Generated for Kiyai teresa/Faclem/eTransmitting on: 0 08/04/2024 11:38 AM BRIDGE OPERATOR
--- OUTSIDE RECORDS SUMMARY | 2024-08-04 11:39 | XMS_ITS | Continuity of Care Document ---
Author Organization [facility] Address [address] [place] [address] Phone Care Team Providers Care Histotechnician Name Role Phone Emmett Watkins DO Unavailable Unavailable Advance Directives Directive Yes / No Effective Date File Name No Information Encounters Encounter Description Practice Location Reason(s) For Visit Diagnoses Date Provider Providers Copied on Encounter [facility], [address], [place], [place], [address], [place] tel:[phone] [facility] No Information Roland Chavarria. [address] [facility], [place], [address], [place]. tel: [phone] Family History Family Member Type Diagnosis Age At Onset No Information Payers Payer name Insurance type Covered constitution party ID Authoriza tievita(s) [facility] [place] [id number] Social History Type Description Quantity Date Captured Comments Sex Female Smoking Status No Information Chief Complaint And Reason For Visit No Information Reason For Referral Reason For Referral No Information History Of Present Illness Encounter Date Complaint History Of Prese nt Illness No Information Functional Status Date Functional Assessmen t No Information Instructions Date Instruction Additional Infor mation No Information Assessments Type Assessment Date No Information Patient Care Teams Name Effective Dates (start - stop) Status Members No Information
--- OUTSIDE RECORDS SUMMARY | 2024-08-04 11:39 | XMS_ITS ---
Author Organization [facility] Address [address] [place], [place] [address] Care Team Providers Care Social Media Assistant Name Role Phone HORTENSIA BAKER Unavailable [phone] Kaye Martinez Unavailable Unavailable Allergies Allergen (clinical drug ingredient) Drug/Non Drug Allergy documented on EMR Reaction Allergy Type Onset Date Status codeine Codeine Unknown Drug Allergy Active cyclobenzaprine Cyclobenzaprine Unknown Drug Allergy Active REASON FOR VISIT *General care Vital Signs Height 68 in 03/03/2024 Weight 154 lbs 03/03/2024 BMI 23.41 kg/m2 03/03/2024 Height-cm 172.72 cm 03/03/2024 Weight-kg 69.85 kg 03/03/2024 Encounters Encounter Location Date Provider Diagnosis [facility] [place] [address] [place], [place] [id number] 03/03/2024 HORTENSIA BAKER Fungal infection of nail B35.1 ; Pain in left toe(s) M79.675 ; Pain in right toe(s) M79.674 ; Unspecified atherosclerosis of [place] arteries of extremities, bilateral legs I70.203 and Contusion of left great toe without damage to nail, subsequent encounter S90.112D Assessments Encounter Date Diagnosis (ICD Code) Assessment Notes Treatment Notes Treatment Clinical Notes Section Notes 03/03/2024 Fungal infection of nail (ICD-10 - B35.1) Nails 1-5 Bilateral were debrided extensively with nail nippers and emery board, reducing length and girth to pink healthy tissue with any subungual debris and necrotic tissue removed 03/03/2024 Pain in left toe(s) (ICD-10 - M79.675) 03/03/2024 Pain in right toe(s) (ICD-10 - M79.674) 03/03/2024 Unspecified atherosclerosis of [place] arteries of extremities, bilateral legs (ICD-10 - I70.203) 03/03/2024 Contusion of left great toe without damage to nail, subsequent encounter (ICD-10 - S90.112D) Plan Of Treatment Treatment Notes Assessment Notes Fungal infection of nail Nails 1-5 Bilat eral were debrided extensively with nail nippers and emery board, reducing length and girth to pink healthy tissue with any subungual debris and necrotic tissue removed Next Appt Details Follow Up: 9 weeks, Reason: Progress Notes * RITIKA UGARTEDOB:1955 ( 68 yo F)Acc No.[id number]:03/03/2024 Patient: RITIKA VALDEZ Provider: Natasha Baker DPM :1955 A ge:68 Y S ex:Female Date:03/03/2024 Address:[address] [place] [address] Subjective: * Chief Complaints: * * General care * HPI: H PI: General care P bari presents to the office for diabetic foot care. Patient states that their nails are thickened, elongated and painful. Patient states that it is aggravated by shoe gear. Onset is gradual. Patient is taking prescription blood thinners. Date last seen by Dr. Martinez was 01/2024. Initials sea. * ROS: G eneral / Constitutional: Patient denies c hange in appetite, fatigue, chills, fever.? C ardiovascular: Chest pain d enies. N eurologic: Loss of use of extremity d enies. * Medical History: * Surgical History: H ysterectomy appendectomy Wrist Surgery Gall Bladder Cataract extration Left leg * Hospitalization/Major Diagno stic Procedure: * Family History: F ather: , asthma. * Medications: * Allergies: C odeineCyclobenzaprine Objective: * Vitals: W t:154lbs, Wt-k.85 kg, Ht: 68 in, Ht-cm: 172.72 cm, BMI:23.41Index, Body Surface Area: 1.83. * Examination: P hysical Examination: Gen: T he patient is awake, alert, well developed, well groomed and well nourished. They are in no apparent distress. . Musc: F oot structure is normal bilateral. Muscle strength is 5/5 to all joints bilaterally. There is no pain on palpation. . Derm: T here is absent hair growth on bilateral feet. There are pigmentary changes of bilateral foot. The skin color is red. The skin texture is thin and shiny. Distal cooling noted in bilateral feet. Nails are thick, discolored, and dystrophic with subungual debris. They are painful to palpation. . Neuro: G rossly intact to light touch bilateral . Vasc: P osterior tibialis pulse 0/4 bilaterally. Dorsalis pedis pulse 0/4 bilaterally. No edema noted. Capillary fill time > 3 seconds to all digits. . Assessment: * Assessment: 1. F ungal infection of nail - B35.1 (Primary) 2 . P ain in left toe(s) - M79.675 3 . P ain in right toe(s) - M79.674 4 . U nspecified atherosclerosis of pauma arteries of extremities, bilateral legs - I70.203 5 . C ontusion of left great toe without damage to nail, subsequent encounter - S90.112D ? Plan: * Treatment: * Procedure Codes: * Follow Up: 9 weeks * Billing Information: * Visit Code: 31890 Office Visit, Est Pt., Level 3. * Procedure Codes: * Sign off status: Completed true * Provider: Natasha Baker DPM Date: 1 Generated for Bonnie moore/Davis/Benjamin on: 0 08/04/2024 11:38 AM BAKERY DELIVERER History and Physical Notes * HPI (History of Present Illness) Category Sub-Category Detail Notes Category Not es HPI General care Patient presents to the office for diabetic foot care. Patient states that their nails are thickened, elongated and painful. Patient states that it is aggravated by shoe gear. Onset is gradual. Patient is taking prescription blood thinners. Date last seen by Dr. Martinez was 01/2024. Initials sea Examination Category Sub-Category Detail Notes Category Not es Physical Examination Gen: The patient is awake, alert, well developed, well groomed and well nourished. They are in no apparent distress. Vasc: Posterior tibialis p ulse 0/4 bilaterally. Dorsalis pedis pulse 0/4 bilaterally. No edema noted. Capillary fill time > 3 seconds to all digits. Neuro: Grossly intact to li ght touch bilateral Musc: Foot structure is no rmal bilateral. Muscle strength is 5/5 to all joints bilaterally. There is no pain on palpation. Derm: There is absent hair growth on bilateral feet. There are pigmentary changes of bilateral foot. The skin color is red. The skin texture is thin and shiny. Distal cooling noted in bilateral feet. Nails are thick, discolored, and dystrophic with subungual debris. They are painful to palpation.
--- OUTSIDE RECORDS SUMMARY | 2024-08-04 11:39 | XMS_ITS | Referral Summary ---
Author Organization [facility] Address [address] [place] [address] Care Team Providers Care Granite Installer Name Role Phone Jamal Mendez MD Unavailable [phone] Kaye Martinez MD Primary Care Provider [phone] Source Comments [facility],non-owned Affiliates and Associated Physician Practices is amultiple site organization consisting of ambulatory clinics and hospital sitesin [place], [place], [place] and [place]. This disclosure is being madepursuant to the Care Everywhere program and may not contain all information available regarding this patient. Last updated 18.[facility] Encounters Date Type Department Care Team Description 08/02/2024 Telephone [facility] - [facility] WORK[facility] [address] [place] [address] Erica Singleton MD Establish Care 07/29/2024 2:55 PM RN TESTING - 07/29/2024 11:59 PM RN TESTING Hospital Encounter [facility] LAB OP DRAW STATION [address] [place] [phone] Ulices Vides MD Discharge Disposition: Home or Self Care 07/29/2024 Travel 07/29/2024 10:00 AM RN TESTING Clinical Support [facility] - Urology [address] [place] [address] Ulices Vides MD Dysuria ; Malignant neoplasm of uterus, unspecified site (HCC); Urinary incontinence, unspecified type 07/14/2024 Telephone [facility] - Urology [address] [facility] [place] [address] Salud Connelly, MEETING SPECIALIST-RETURN CHECKER Results 07/12/2024 Travel 07/12/2024 10:00 AM RN TESTING Clinical Support [facility] - Urology [address] [place] [phone] Narda Pierce MD Goodman, Molly T, MEETING SPECIALIST-RETURN CHECKER Neurogenic bladder ; Dysuria; Foreign body in bladder, initial encounter; Malfunction of Clancy catheter, initial encounter ([facility]) 06/25/2024 9:01 PM RN TESTING - 06/28/2024 10:00 PM RN TESTING Hospital Encounter [facility] 3E MED/ONC [address] [place] [address] Mandi Lyn MD Usman, Ahsan, MD Nangle, Sarah E, DO Henke, Jonathan W, MD Subramanian, Veerakesari, MD Hospitalist Discharge Disposition: Left Against Medical Advice/Discontinued Care 06/12/[address] [facility] PHYS SURGERY [address] [place] [address] Michael Ya MD URINARY CATHETER PROBLEM 06/07/2024 Telephone [facility] - Infectious Disease [address] [place] [phone] Nieves [place], RN Follow-up 06/07/2024 Telephone [facility] - Infectious Disease [address] [place] [phone] Nieves [place], RN Appointment 06/06/2024 Travel 06/06/2024 Telephone [facility] - Infectious Disease [address] [place] [phone] Omid Sanders MD Appointment 05/21/2024 12:18 PM RN TESTING - 06/01/2024 9:10 PM RN TESTING Hospital Encounter [facility] 7N [address] [place] [address] HerbertKishore de león MD Felgenhauer, Joshua, MD Purdy, Justin, MD Bastin, Taylor J, MD Arshad, Iqra, MD Madi, Mahmoud, MD Nguyen, Christopher, DO Hospitalist Discharge Disposition: Left Against Medical Advice/Discontinued Care 05/21/2024 Travel 05/20/2024 Telephone [facility] - Urology [address] [place] [phone] Salud Connelly, MEETING SPECIALIST-RETURN CHECKER Follow-up 05/19/2024 Orders Only [facility] - Urology [address] [place] [phone] Ulices Vides MD Abscess of bladder 05/17/2024 9:45 AM RN TESTING Clinical Support [facility] - Urology [address] [facility] [place] [phone] Narda Pierce MD Goodman, Molly T, MEETING SPECIALIST-RETURN CHECKER Kam Carter MD Indwelling Clancy catheter present 05/17/2024 Telephone [facility] - Urology [address] [place] [phone] Nat Chapa RN Dysuria 05/17/2024 Travel 05/17/2024 6:17 AM RN TESTING - 05/17/2024 9:29 AM RN TESTING Hospital Encounter [facility] NIDA OP [address] [place] [address] Narda Pierce MD Farmer, Adam D, MD [facility] Discharge Disposition: Home or Self Care 05/09/2024 Orders Only [facility] IVR [address] [place] [address] Narda Pierce MD Abscess of bladder 05/06/2024 Travel 05/06/2024 10:37 AM RN TESTING - 05/06/2024 2:15 PM RN TESTING Hospital Encounter [facility] NIDA OP [address] [place] [phone] Ulices Vides MD Farmer, Adam D, MD [facility] Discharge Disposition: Home or Self Care from Last 3 Months Allergies Active Allergy Reactions Criticality Noted Date Comments Baclofen Urticaria,Other,Unknown Medium 06/17/2023 Reaction: HIVES Codeine Other,Unknown High 02/15/2021 Cyclobenzaprine Other,Unknown High 09/09/2022 Tolterodine Dizziness Low 02/26/2023 Medications * Be aware that medications may not be up to date on this document. Alwaysverify current medications with the patient. Medication Sig Dispensed Refills Start Date End Date Status acetaminophen (Tylenol) 500 MG tablet Take 2 (two) tablets by mouth 3 times daily as needed for Fever or Pain Maximum allowable Acetaminophen amount = 4 Grams (4000 mg) / 24 hours. Active albuterol HFA (Proventil; Ventolin; Proair) 108 (90 Base) MCG/ACT inhaler Inhale 2 (two) puffs by mouth every 6 hours as needed for Wheezing, Shortness of Breath or Cough Active aspirin (Aspirin) 81 MG chew tablet Take 1 (one) tablet by mouth once daily Active vitamin D3 (Cholecalciferol ) 25 MCG (1000 UNITS) tablet Take 2 (two) tablets by mouth 2 times daily Active loratadine (Claritin) 10 MG tablet Take 1 (one) tablet by mouth once daily Active levothyroxine (Synthroid) 88 MCG tablet Take 1 (one) tablet by mouth daily before breakfast Active liothyronine (Cytomel) 5 MCG tablet Take 1 (one) tablet by mouth once daily Active metFORMIN (Glucophage) 500 MG tablet TAKE 1 TABLET BY MOUTH EVERY MORNING AND 2 TABLETS IN THE AFTERNOON. Active montelukast (Singulair) 10 MG tablet Take 1 (one) tablet by mouth at bedtime Active fish oil/omega-3 fatty acids (Promega;Cardi-O milind 3) 1000 MG capsule Take 2 (two) capsules by mouth 2 times daily with morning and evening meal Active vitamin E (Tocopheryl) 1000 UNIT capsule Take 1 (one) capsule by mouth once daily Active pramipexole (Mirapex) 0.5 MG tablet Take 1 (one) tablet by mouth 3 times daily Active traMADol (Ultram) 50 MG tablet Take 1 (one) tablet by mouth 3 times daily as needed For pain. 04/23/2024 Active Calcium Carb-Cholecalcif ashwini 600-10 MG-MCG Take 1 (one) tablet by mouth 2 times daily 05/12/2024 Active Stiolto Respimat 2.5-2.5 MCG/ACT INHALE 2 PUFFS BY MOUTH EVERY DAY 05/15/2024 Active wrcsy-8-jwpo ethyl esters (Lovaza) 1 g capsule Take 2 (two) capsules by mouth 2 times daily Active gabapentin (Neurontin) 600 MG tablet Take 1 (one) tablet by mouth 3 times daily 06/22/2024 Active amLODIPine (Norvasc) 5 MG tablet Take 1.5 (one and one-half) tablets by mouth once daily Active atorvastatin (Lipitor) 20 MG tablet Take 1 (one) tablet by mouth at bedtime HOLD atorvastatin while taking daptomycin antibiotic. Resume atorvastatin after daptomycin complete. 07/26/2024 Active nitrofurantoin monohyd macro crystals (Macrobid) 100 MG capsule Take 1 (one) capsule by mouth 2 times daily with morning and evening meal for 2 days 4 capsule 07/30/2024 5 Discontinue d(List Clean-Up) Active Problems Problem Noted Date Diagnosed Date Cystitis 06/25/2024 CARYN (obstructive sleep apnea) 05/24/2024 Other emphysema 05/24/2024 Suprapubic catheter 05/21/2024 Urinary tract infection without hematuria, site unspecified 05/21/2024 Infection due to bacteria re sistant to multiple antimicrobial drugs 05/21/2024 Urinary tract infection associated with cystosto my catheter 04/22/2024 HTN (hypertension) 04/21/2024 Diabetes mellitus 04/21/2024 Chronic hypoxemic respiratory failure 04/21/2024 Restless leg syndrome 04/21/2024 Hypothyroid 04/21/2024 Abdominal wall abscess 04/20/2024 Pelvic pain in female 04/20/2024 Suprapubic catheter dysfunction, initial encount er 04/20/2024 Social History Tobacco Use Types Packs/Day Years Used Date Smoking Tobacco: Every Day Cigarettes Smokeless Tobacco: Never Alcohol Use Standard Drinks/Week Comments Not Currently 0 (1 standard drink = 0.6 oz pur e alcohol) AUDIT-C Answer Date Recorded Q1: How often do you have a drink containing alcohol? Never 05/22/2024 Q2: How many drinks containi ng alcohol do you have on a typical day when you are drinking? Patient does not drink Q3: How often do you have si x or more drinks on one occasion? Never 05/22/2024 Overall Financial Resource Strain (CARDIA) Answe r Date Recorded How hard is it for you to pa y for the very basics like food, housing, medical care, and heating? Not hard at all 05/22/2024 [facility] [place] [facility] - Occupational Stress Questionnaire Answer Date Recorded Do you feel stress - tense, restless, nervous, or anxious, or unable to sleep at night because your mind is troubled all the time - these days? Only a little 05/22/2024 Hunger Vital Sign Answer Date Recorded Within the past 12 months, y ou worried that your food would run out before you got the money to buy more. Never true 05/22/20 24 Within the past 12 months, t he food you bought just didn't last and you didn't have money to get more. Never true 05/22/2024 PRAPARE - Transportation Answer Date Re corded In the past 12 months, has l ack of transportation kept you from medical appointments or from getting medications? No 05/02 In the past 12 months, has l ack of transportation kept you from meetings, work, or from getting things needed for daily living? No 05/22/2024 Housing Stability Vital Sign Answer Mihai e Recorded In the last 12 months, was t here a time when you were not able to pay the mortgage or rent on time? No 05/22/2024 In the past 12 months, how m any times have you moved where you were living? 0 05/22/2024 At any time in the past 12 m [facility], were you homeless or living in a retirement (including now)? No 05/22/2024 Sex and Gender Information Value Date Recorded Sex Assigned at Not on file Gender Identity Not on file Sexual Orientation Not on file Last Filed Vital Signs Vital Sign Reading Time Taken Comments Blood Pressure 144/69 07/29/2024 9:50 AM RN TESTING Pulse 99 07/29/2024 9:50 AM RN TESTING Temperature 36.1 C (97 F) 07/29/2024 9:50 AM RN TESTING Respiratory Rate 17 06/28/2024 5:17 PM RN TESTING Oxygen Saturation 90% 07/29/2024 9:50 AM RN TESTING Inhaled Oxygen Concentration 21% 05/30/2024 1 :20 AM RN TESTING Weight 74.4 kg (164 lb) 07/29/2024 9:50 AM RN TESTING Height 172.7 cm (5' 8) 07/29/2024 9:50 AM RN TESTING Body Mass Index 24.94 07/29/2024 9:50 AM RN TESTING Functional Status Functional Status Response Date of Assess ment Is person deaf or have serious hearing difficult y? No 05/22/2024 Is person blind or have serious difficulty seein g? No 05/22/2024 Does person have serious dif ficulty walking/climbing stairs? Yes 05/22/2024 Does person have difficulty dressing/bathing? Ye s 05/22/2024 Does person have difficulty doing errands alone? Yes 05/22/2024 Cognitive Status Response Date of Assessm ent Does person have difficulty concentrating/remembering/making decisions? No 05/22/2024 Plan of Treatment Upcoming Encounters Date Type Department Care Team (Late st Contact Info) Description 08/05/2024 3:00 PM RN TESTING Appointment [facility] Imaging Services - CT Scan [address] [place] [address] Case Monterroso MD [address] [place] [address] 08/16/2024 9:00 AM CDT Office Visit [facility] - SOCIAL WORKER PALLIATIVE CARE [address], [facility] [address] [place] [phone] Mary Mac Che, MD [address] [facility] [address] [place] [phone] 09/08/2024 1:00 PM CDT Procedure visit [facility] - Urology [facility] [facility] [address] [place] [phone] Bette Allred, [address] [facility] [address] [place] [phone] Procedures Procedure Name Priority Date/Time Associated Diagnosis Comments URINALYSIS W/MICROSCOPIC REFLEX TO CULTURE Routine 07/29/2024 3:51 PM RN TESTING Urinary incontinence, unspecified type CULTURE URINE Routine 07/29/2024 3:51 PM RN TESTING Urinary incontinence, unspecified type CULTURE URINE Routine 07/29/2024 3:51 PM RN TESTING Dysuria CULTURE FUNGUS OTHER+FUNGUS SMEAR Routine 07/29/2024 3:45 PM RN TESTING Dysuria AZ CYSTOSCOPY,REMV CALCULUS,COMPLIC Routine 07/14/2024 2:03 PM RN TESTING Neurogenic bladder AZ INSERT TEMP INDWELL BLADD CATH Routine 07/14/2024 12:46 PM RN TESTING Neurogenic bladder CULTURE URINE Routine 07/12/2024 12:20 PM RN TESTING Dysuria GLUCOSE - POINT OF CARE Routine 06/28/2024 5:15 PM RN TESTING VANCOMYCIN LEVEL TROUGH STAT 06/28/2024 1:00 PM RN TESTING GLUCOSE - POINT OF CARE Routine 06/28/2024 12:14 PM RN TESTING GLUCOSE - POINT OF CARE Routine 06/28/2024 9:02 AM RN TESTING VANCOMYCIN LEVEL TROUGH STAT 06/28/2024 4:33 AM RN TESTING CK BLOOD Add on 06/28/2024 4:32 AM RN TESTING RENAL FUNCTION PANEL AM Draw 06/28/2024 4:32 AM RN TESTING CBC W/O DIFFERENTIAL AM Draw 06/28/2024 4:32 AM RN TESTING VANCOMYCIN LEVEL PEAK STAT 06/28/2024 4:32 AM RN TESTING GLUCOSE - POINT OF CARE Routine 06/27/2024 7:45 PM RN TESTING GLUCOSE - POINT OF CARE Routine 06/27/2024 5:54 PM RN TESTING GLUCOSE - POINT OF CARE Routine 06/27/2024 11:44 AM RN TESTING GLUCOSE - POINT OF CARE Routine 06/27/2024 8:26 AM RN TESTING RENAL FUNCTION PANEL AM Draw 06/27/2024 4:13 AM RN TESTING CBC W/O DIFFERENTIAL AM Draw 06/27/2024 4:13 AM RN TESTING GLUCOSE - POINT OF CARE Routine 06/26/2024 9:48 PM RN TESTING XR CHEST 1VW PORTABLE Routine 06/26/2024 8:37 PM RN TESTING Cystitis GLUCOSE - POINT OF CARE Routine 06/26/2024 6:17 PM RN TESTING GLUCOSE - POINT OF CARE Routine 06/26/2024 12:35 PM RN TESTING GLUCOSE - POINT OF CARE Routine 06/26/2024 8:02 AM RN TESTING BASIC METABOLIC PANEL (CALCIUM TOTAL) AM Draw 06/26/2024 4:30 AM RN TESTING URINALYSIS REFLEX MICROSCOPIC REFLEX CULTURE Routine 06/26/2024 2:51 AM RN TESTING CULTURE URINE Routine 06/26/2024 2:51 AM RN TESTING CK BLOOD Add on 06/25/2024 9:56 PM RN TESTING COMPREHENSIVE METABOLIC PANEL STAT 06/25/2024 9:56 PM RN TESTING CBC W AUTO DIFFERENTIAL STAT 06/25/2024 9:56 PM RN TESTING PT EVAL AND TREAT Routine 06/25/2024 9:3 2 PM RN TESTING OT EVAL AND TREAT Routine 06/25/2024 9:3 2 PM RN TESTING CULTURE BLOOD Timed 06/25/2024 9:24 PM RN TESTING LACTIC ACID BLOOD REFLEX TO REPEAT STAT 06/25/2024 9:18 PM RN TESTING CULTURE BLOOD Timed 06/25/2024 9:18 PM RN TESTING GLUCOSE - POINT OF CARE Routine 06/01/2024 7:48 PM RN TESTING GLUCOSE - POINT OF CARE Routine 06/01/2024 5:23 PM RN TESTING GLUCOSE - POINT OF CARE Routine 06/01/2024 12:35 PM RN TESTING GLUCOSE - POINT OF CARE Routine 06/01/2024 8:24 AM RN TESTING CBC W/O DIFFERENTIAL AM Draw 06/01/2024 3:07 AM RN TESTING Infection due to bacteria resistant to multiple antimicrobial drugs RENAL FUNCTION PANEL AM Draw 06/01/2024 3:07 AM RN TESTING Infection due to bacteria resistant to multiple antimicrobial drugs MAGNESIUM BLOOD Routine 06/01/2024 3:07 AM RN TESTING Infection due to bacteria resistant to multiple antimicrobial drugs GLUCOSE - POINT OF CARE Routine 05/31/2024 9:44 PM RN TESTING GLUCOSE - POINT OF CARE Routine 05/31/2024 5:07 PM RN TESTING GLUCOSE - POINT OF CARE Routine 05/31/2024 8:03 AM RN TESTING CK BLOOD Routine 05/31/2024 5:58 AM RN TESTING CBC W/O DIFFERENTIAL AM Draw 05/31/2024 5:58 AM RN TESTING Infection due to bacteria resistant to multiple antimicrobial drugs RENAL FUNCTION PANEL AM Draw 05/31/2024 5:58 AM RN TESTING Infection due to bacteria resistant to multiple antimicrobial drugs MAGNESIUM BLOOD Routine 05/31/2024 5:58 AM RN TESTING Infection due to bacteria resistant to multiple antimicrobial drugs GLUCOSE - POINT OF CARE Routine 05/30/2024 8:22 PM RN TESTING GLUCOSE - POINT OF CARE Routine 05/30/2024 5:48 PM RN TESTING GLUCOSE - POINT OF CARE Routine 05/30/2024 8:09 AM RN TESTING CBC W/O DIFFERENTIAL AM Draw 05/30/2024 5:39 AM RN TESTING Infection due to bacteria resistant to multiple antimicrobial drugs RENAL FUNCTION PANEL AM Draw 05/30/2024 5:39 AM RN TESTING Infection due to bacteria resistant to multiple antimicrobial drugs MAGNESIUM BLOOD Routine 05/30/2024 5:39 AM RN TESTING Infection due to bacteria resistant to multiple antimicrobial drugs GLUCOSE - POINT OF CARE Routine 05/29/2024 9:24 PM RN TESTING GLUCOSE - POINT OF CARE Routine 05/29/2024 2:19 PM RN TESTING CBC W/O DIFFERENTIAL AM Draw 05/29/2024 8:42 AM RN TESTING Infection due to bacteria resistant to multiple antimicrobial drugs RENAL FUNCTION PANEL AM Draw 05/29/2024 8:42 AM RN TESTING Infection due to bacteria resistant to multiple antimicrobial drugs MAGNESIUM BLOOD Routine 05/29/2024 8:42 AM RN TESTING Infection due to bacteria resistant to multiple antimicrobial drugs GLUCOSE - POINT OF CARE Routine 05/29/2024 8:00 AM RN TESTING GLUCOSE - POINT OF CARE Routine 05/28/2024 10:44 PM RN TESTING GLUCOSE - POINT OF CARE Routine 05/28/2024 4:57 PM RN TESTING RENAL FUNCTION PANEL AM Draw 05/28/2024 3:05 PM RN TESTING Infection due to bacteria resistant to multiple antimicrobial drugs MAGNESIUM BLOOD Routine 05/28/2024 3:05 PM RN TESTING Infection due to bacteria resistant to multiple antimicrobial drugs CBC W/O DIFFERENTIAL AM Draw 05/28/2024 3:04 PM RN TESTING Infection due to bacteria resistant to multiple antimicrobial drugs GLUCOSE - POINT OF CARE Routine 05/28/2024 11:58 AM RN TESTING GLUCOSE - POINT OF CARE Routine 05/28/2024 8:27 AM RN TESTING GLUCOSE - POINT OF CARE Routine 05/27/2024 9:17 PM RN TESTING GLUCOSE - POINT OF CARE Routine 05/27/2024 4:32 PM RN TESTING CBC W/O DIFFERENTIAL AM Draw 05/27/2024 3:37 PM RN TESTING Infection due to bacteria resistant to multiple antimicrobial drugs RENAL FUNCTION PANEL AM Draw 05/27/2024 3:37 PM RN TESTING Infection due to bacteria resistant to multiple antimicrobial drugs MAGNESIUM BLOOD Routine 05/27/2024 3:37 PM RN TESTING Infection due to bacteria resistant to multiple antimicrobial drugs GLUCOSE - POINT OF CARE Routine 05/27/2024 11:51 AM RN TESTING GLUCOSE - POINT OF CARE Routine 05/27/2024 7:54 AM RN TESTING GLUCOSE - POINT OF CARE Routine 05/26/2024 9:32 PM RN TESTING GLUCOSE - POINT OF CARE Routine 05/26/2024 4:25 PM RN TESTING GLUCOSE - POINT OF CARE Routine 05/26/2024 11:49 AM RN TESTING GLUCOSE - POINT OF CARE Routine 05/26/2024 7:28 AM RN TESTING CBC W/O DIFFERENTIAL AM Draw 05/26/2024 7:12 AM RN TESTING Infection due to bacteria resistant to multiple antimicrobial drugs RENAL FUNCTION PANEL AM Draw 05/26/2024 7:12 AM RN TESTING Infection due to bacteria resistant to multiple antimicrobial drugs MAGNESIUM BLOOD Routine 05/26/2024 7:12 AM RN TESTING Infection due to bacteria resistant to multiple antimicrobial drugs GLUCOSE - POINT OF CARE Routine 05/25/2024 10:04 PM RN TESTING GLUCOSE - POINT OF CARE Routine 05/25/2024 5:08 PM RN TESTING GLUCOSE - POINT OF CARE Routine 05/25/2024 12:19 PM RN TESTING GLUCOSE - POINT OF CARE Routine 05/25/2024 8:06 AM RN TESTING CK BLOOD Routine 05/25/2024 3:12 AM RN TESTING CBC W/O DIFFERENTIAL AM Draw 05/25/2024 3:12 AM RN TESTING Infection due to bacteria resistant to multiple antimicrobial drugs RENAL FUNCTION PANEL AM Draw 05/25/2024 3:12 AM RN TESTING Infection due to bacteria resistant to multiple antimicrobial drugs MAGNESIUM BLOOD Routine 05/25/2024 3:12 AM RN TESTING Infection due to bacteria resistant to multiple antimicrobial drugs GLUCOSE - POINT OF CARE Routine 05/24/2024 9:22 PM RN TESTING GLUCOSE - POINT OF CARE Routine 05/24/2024 6:52 PM RN TESTING GLUCOSE - POINT OF CARE Routine 05/24/2024 1:01 PM RN TESTING IR PICC LINE INSERT Routine 05/24/2024 1 1:57 AM RN TESTING Infection due to bacteria resistant to multiple antimicrobial drugs CBC W/O DIFFERENTIAL AM Draw 05/24/2024 10:20 AM RN TESTING Infection due to bacteria resistant to multiple antimicrobial drugs RENAL FUNCTION PANEL AM Draw 05/24/2024 10:20 AM RN TESTING Infection due to bacteria resistant to multiple antimicrobial drugs MAGNESIUM BLOOD Routine 05/24/2024 10:20 AM RN TESTING Infection due to bacteria resistant to multiple antimicrobial drugs GLUCOSE - POINT OF CARE Routine 05/24/2024 8:32 AM RN TESTING GLUCOSE - POINT OF CARE Routine 05/23/2024 11:19 PM RN TESTING GLUCOSE - POINT OF CARE Routine 05/23/2024 5:54 PM RN TESTING GLUCOSE - POINT OF CARE Routine 05/23/2024 11:[address] US GUIDED NEEDLE PLACEMENT Routine 05/23/2024 11:19 AM RN TESTING Infection due to bacteria resistant to multiple antimicrobial drugs Abdominal wall abscess CYTOLOGY NON-DIKE SUPERVISOR PANEL (STL) Routine 05/23/2024 11:15 AM RN TESTING Infection due to bacteria resistant to multiple antimicrobial drugs LAB MISC TEST (NOT BLOOD) Routine 05/23/2024 11:15 AM RN TESTING CULTURE AFB+SMEAR Routine 05/23/2024 11: 15 AM RN TESTING CULTURE FUNGUS OTHER+FUNGUS SMEAR Routine 05/23/2024 11:15 AM RN TESTING CULTURE ANAEROBE Routine 05/23/2024 11:1 5 AM RN TESTING CULTURE FLUID+GRAM STAIN Routine 05/23/2024 11:15 AM RN TESTING GLUCOSE - POINT OF CARE Routine 05/23/2024 9:42 AM RN TESTING CBC W/O DIFFERENTIAL AM Draw 05/23/2024 12:31 AM RN TESTING Infection due to bacteria resistant to multiple antimicrobial drugs RENAL FUNCTION PANEL AM Draw 05/23/2024 12:31 AM RN TESTING Infection due to bacteria resistant to multiple antimicrobial drugs MAGNESIUM BLOOD Routine 05/23/2024 12:31 AM RN TESTING Infection due to bacteria resistant to multiple antimicrobial drugs GLUCOSE - POINT OF CARE Routine 05/22/2024 8:46 PM RN TESTING GLUCOSE - POINT OF CARE Routine 05/22/2024 4:26 PM RN TESTING GLUCOSE - POINT OF CARE Routine 05/22/2024 12:[address] ABDOMEN PELVIS W CONTRAST Routine 05/22/2024 9:30 AM RN TESTING Infection due to bacteria resistant to multiple antimicrobial drugs GLUCOSE - POINT OF CARE Routine 05/22/2024 8:35 AM RN TESTING URINE MICROSCOPIC ONLY REFLEX TO CULTURE STAT 05/21/2024 1:41 PM RN TESTING URINALYSIS REFLEX MICROSCOPIC REFLEX CULTURE STAT 05/21/2024 1:41 PM RN TESTING CULTURE URINE STAT 05/21/2024 1:41 PM RN TESTING XR CHEST 1VW PORTABLE STAT 05/21/2024 1:13 PM RN TESTING Urinary tract infection without hematuria, site unspecified LACTIC ACID BLOOD REFLEX TO REPEAT Timed 05/21/2024 12:58 PM RN TESTING PT-INR [facility] STAT 05/21/2024 12:58 PM RN TESTING COMPREHENSIVE METABOLIC PANEL STAT 05/21/2024 12:58 PM RN TESTING CBC W AUTO DIFFERENTIAL STAT 05/21/2024 12:58 PM RN TESTING CULTURE BLOOD Timed 05/21/2024 12:58 PM RN TESTING CULTURE BLOOD Timed 05/21/2024 12:30 PM RN TESTING PROC CATHETER CHANGE/INSERTION Routine 05/17/2024 12:50 PM RN TESTING Indwelling Clancy catheter present CULTURE URINE Routine 05/17/2024 12:28 PM RN TESTING Dysuria CT PERC DRAINAGE CATH EXCHANGE Routine 05/17/2024 8:37 AM RN TESTING Abscess of bladder GLUCOSE - POINT OF CARE Routine 05/17/2024 6:54 AM RN TESTING CBC W AUTO DIFFERENTIAL Routine 05/17/2024 6:50 AM RN TESTING Abdominal wall abscess URINALYSIS AUTO - POINT OF CARE (AMB) [facility] Routine 05/17/2024 Indwelling Clancy catheter present CT DRAIN W CATH PLACEMENT Routine 05/06/2024 1:18 PM RN TESTING Abscess of bladder CREATININE BODY FLUID Routine 05/06/2024 1:13 PM RN TESTING Fluid collection at surgical site, sequela CULTURE URINE Routine 05/06/2024 1:13 PM RN TESTING Acute cystitis without hematuria CULTURE FUNGUS OTHER+FUNGUS SMEAR Routine 05/06/2024 12:50 PM RN TESTING Fluid collection at surgical site, sequela CULTURE WOUND+GRAM STAIN Routine 05/06/2024 12:50 PM RN TESTING Fluid collection at surgical site, sequela GLUCOSE - POINT OF CARE Routine 05/06/2024 11:05 AM RN TESTING PT-INR [facility] STAT 05/06/2024 11:03 AM RN TESTING Abdominal wall abscess from Last 3 Months Results * (ABNORMAL) URINALYSIS W/MICROSCOPIC REFLEX TO CULTURE (07/29/2024 3:51 PM RN TESTING) Color UA Yellow Straw, Yellow 07/29/2024 4:21 PM [facility] Clarity UA Slt Cloudy(A) Clear 07/29/2024 4:21 PM [facility] Specific [place] UA 1.010 1.005 - 1.030 07/29/2024 4:21 PM [facility] pH UA 6.0 5.0 - 8.0 pH 07/29/2024 4:21 PM [facility] Protein UA 2+(A) Negative 07/29/2024 4:21 PM [facility] Glucose UA Negative Negative 07/29/2024 4:21 PM [facility] Ketone UA Negative Negative 07/29/2024 4:21 PM [facility] Bilirubin UA Negative Negative 07/29/2024 4:21 PM [facility] Blood UA 3+(A) Negative 07/29/2024 4:21 PM [facility] Nitrite UA Negative Negative 07/29/2024 4:21 PM [facility] Leukocyte Esterase 2+(A) Negative 07/29/2024 4:21 PM [facility] Urobilinogen UA Negative Negative mg/dL 07/29/2024 4:21 PM [facility] RBC UA >100(A) None Seen, 0-2, 3-5 /HPF 07/29/2024 4:21 PM [facility] WBC UA 21-50(A) None Seen, 0-5 /HPF 07/29/2024 4:21 PM [facility] Bacteria UA Trace(A) None /HPF 07/29/2024 4:21 PM [facility] Squamous Epithelial Cells UA 0-2 None Seen, 0-2, 3-5 /HPF 07/29/2024 4:21 PM [facility] Mucus UA 1+ /LPF 07/29/2024 4:21 PM [facility] Yeast Budding UA Few(A) None /HPF 07/29/19 4:21 PM [facility] Calcium Oxalate UA Occasional( A) None /HPF 07/29/2024 4:21 PM [facility] Urine URINE SPECIMEN OBTAINED BY CLEAN CATCH PROCEDURE / Unknown Collection / Unknown 07/29/2024 3:51 PM RN TESTING 07/29/2024 4:04 PM RN TESTING Narrative [facility] - 07/29/2024 4:21 PM RN TESTING Lab Status, Culture Reflex Indicated. Ulices Vides MD LAB - URINALYSIS ORD ERABLES Performing Organization Address City/[facility]/ZIP Co de Phone Number [facility] [address] [place] [address], [place] [phone] * CULTURE URINE (07/29/2024 3:51 PM RN TESTING) Only the most recent of7 resultswithin the time period is included. Culture Urine 10,000-50,000 CFU/mL urogenital reese SHIMA 07/31/2024 5:43 AM RN TESTING [facility] Urine URINE SPECIMEN OBTAINED BY CLEAN CATCH PROCEDURE / Unknown Collection / Unknown 07/29/2024 3:51 PM RN TESTING 07/29/2024 4:20 PM RN TESTING Ulices Vides MD LAB - MICROBIOLOGY O RDERABLES Performing Organization Address City/[facility]/ZIP Co de Phone Number [facility] [address] [place] [address], [facility] [phone] * [place] CYSTOSCOPY,REMV CALCULUS,COMPLIC (07/14/2024 2:03 PM RN TESTING) Narrative Salud Connelly APRN-CNP - 07/14/2024 2:03 PM RN TESTING Salud Connelly APRN-CNP 07/14/2024 2:10 PM Cystoscopy procedure note Indication for Procedure: urinary retention, concern for FB Description: Pt placed on the procedure table in supine/lithotomy position. she was prepped/draped in standard fashion. Pt correctly identified and time out performed. A flexible cystoscope was introduced per urethra with the following findings. Urethra: Normal caliber, no stricture. No masses. Urethral sphincter with good coaptation Bladder neck patent without contracture Trigone - UO's orthotopic bilaterally. Clear efflux seen from both ureteral orifices. Mucosa normal without lesion Bladder - normal mucosa without tumor/stone/erythema. +FB present- ruptured balloon fragment noted in bladder and removed with forceps. No trabeculation. No cellules or diverticula. No fistula. Scope was retroflexed to assess entire surface of bladder. SP catheter in good position and noted in bladder IMPRESSION: FB present and removed with forceps SARA Brunson Cystoscopy performed with Dr. Aung Montejo Salud RUIZ PROCEDURE/MINOR SURGICAL ORDERABLES * AZ INSERT TEMP INDWELL BLADD CATH (07/14/2024 12:46 PM RN TESTING) Narrative Salud Connelly APRN-CNP - 07/14/2024 12:46 PM RN TESTING Salud Connelly APRN-CNP 07/14/2024 2:10 PM Procedure: The patient was positioned in the supine position. The SP site was exposed. Betadine soaked swabs were then used to prepare the area in a sterile fashion, running the swabs over 3 separate times. A 14fr catheter was covered with sterile lubricant and was then introduced into the SP site but unable to advance. A 12fr was attempted to be inserted and unable. Dr. Aung Montejo to bedside, placed wire into SP site, attempted to 14 fr but unable advance into bladder. He then advanced a 12fr into SP site with urine return. Balloon was inflated and secured and urine collection system was secured in place. Cystoscopy was then performed, see note SARA Brunson 07/14/2024 Salud RUIZ PROCEDURE/MINOR SURGICAL ORDERABLES * (ABNORMAL) GLUCOSE - POINT OF CARE (06/28/2024 5:15 PM RN TESTING) Only the most recent of54 resultswithin the time period is included. Glucose WB/POC 130(H) 70 - 99 mg/dL 06/28/2024 5:48 PM RN TESTING [facility] Specimen Type Cap Fingerstick 2024 5:48 PM RN TESTING [facility] Blood BLOOD SPECIMEN / Unknown 06/28/2024 5:15 PM RN TESTING 06/28/2024 5:48 PM RN TESTING Case Monterroso MD LAB - POINT O F CARE ORDERABLES [facility] [address] [place] [address] * (ABNORMAL) VANCOMYCIN LEVEL TROUGH (06/28/2024 1:00 PM RN TESTING) Only the most recent of2 resultswithin the time period is included. Vancomycin Trough 6.1(L) 10.0 - 20.0 ug/mL 06/28/2024 1:42 PM [facility] Blood BLOOD SPECIMEN / Unknown Venipuncture / Unknown 06/28/2024 1:00 PM RN TESTING 06/28/2024 1:03 PM RN TESTING Matheus Quesada MD LAB - CHEMIS TRY ORDERABLES [facility] [address] [place], [place] [id number] * CBC W/O DIFFERENTIAL (06/28/2024 4:32 AM RN TESTING) Only the most recent of12 resultswithin the time period is included. WBC 6.4 4.0 - 10.7 x10E9/L 06/28/2024 4:47 AM [facility] RBC Count 4.01 3.90 - 5.20 x10E12/L 06/28/2024 4:47 AM [facility] Hemoglobin 12.8 11.9 - 15.8 g/dL 06/28/2024 4:47 AM [facility] Hematocrit 38.4 34.8 - 46.1 % 06/28/2024 4:47 AM [facility] MCV 95.8 80.0 - 98.0 fL 06/28/2024 4:47 AM [facility] MCH 31.9 26.7 - 33.6 pg 06/28/2024 4:47 AM [facility] MCHC 33.3 31.7 - 36.3 g/dL 06/28/2024 4:47 AM [facility] RDW-CV 12.1 11.3 - 14.8 % 06/28/2024 4:47 AM [facility] Platelet Count 226 150 - 420 x10E9/L 06/28/2024 4:47 AM [facility] MPV 8.5 7.8 - 11.4 fL 06/28/2024 4:47 AM [facility] Blood BLOOD SPECIMEN / Unknown Venipuncture / Unknown 06/28/2024 4:32 AM RN TESTING 06/28/2024 4:44 AM RN TESTING Chandan Bae MD LAB - HEMATOLOGY ORD ERABLES [facility] [address] [place] [address] * (ABNORMAL) RENAL FUNCTION PANEL (06/28/2024 4:32 AM RN TESTING) Only the most recent of12 resultswithin the time period is included. [facility] Glucose 188(H) 70 - 99 mg/dL 06/28/2024 5:07 AM [facility] Sodium 133(L) 136 - 145 mmol/L 06/28/2024 5:07 AM [facility] Potassium 4.5 3.5 - 5.1 mmol/L 06/28/2024 5:07 AM [facility] Chloride 103 98 - 107 mmol/L 06/28/2024 5:07 AM [facility] CO2 23 22 - 29 mmol/L 06/28/2024 5:07 AM [facility] Calcium 8.8 8.4 - 10.4 mg/dL 06/28/2024 5:07 AM [facility] Anion Gap 7 6 - 16 mmol/L 06/28/2024 5:07 AM [facility] BUN 15 7 - 26 mg/dL 06/28/2024 5:07 AM [facility] Creatinine 0.64 0.57 - 1.11 mg/dL 06/28/2024 5:07 AM [facility] Albumin 3.8 3.4 - 5.0 gm/dL 06/28/2024 5:07 AM [facility] Phosphorus 3.0 2.5 - 4.5 mg/dL 06/28/2024 5:07 AM [facility] eGFR by CKD-EPI >90 >=90 mL/min/1.7 3 m2 06/28/2024 5:07 AM [facility] Blood BLOOD SPECIMEN / Unknown Venipuncture / Unknown 06/28/2024 4:32 AM RN TESTING 06/28/2024 4:44 AM RN TESTING Chandan Bae MD LAB - CHEMISTRY RK LUIS Performing Organization Address [facility] Co de Phone Number [facility] [address] [place] [id number] * CK BLOOD (06/28/2024 4:32 AM RN TESTING) Only the most recent of4 resultswithin the time period is included. CK 145 29 - 168 U/L 06/28/2024 6:46 AM RN TESTING [facility] Blood BLOOD SPECIMEN / Unknown Venipuncture / Unknown 06/28/2024 4:32 AM RN TESTING 06/28/2024 4:44 AM RN TESTING Case Monterroso MD LAB - POLICY CHANGE CLERK RY ORDERABLES Performing Organization Address [facility] Co de Phone Number [facility] [address] [place] [address] * (ABNORMAL) VANCOMYCIN LEVEL PEAK (06/28/2024 4:32 AM RN TESTING) Vancomycin Peak 13.6(L) 25.0 - 40.0 ug/mL 06/28/2024 5:06 AM RN TESTING [facility] Blood BLOOD SPECIMEN / Unknown Venipuncture / Unknown 06/28/2024 4:32 AM RN TESTING 06/28/2024 4:44 AM RN TESTING Chandan Bae MD LAB - CHEMISTRY RK LUIS Performing Organization Address [facility] Co de Phone Number [facility] [address] [place] [id number] * XR CHEST 1VW PORTABLE (06/26/2024 8:37 PM RN TESTING) Only the most recent of2 resultswithin the time period is included. Anatomical Region Laterality Modality Chest Radiographic Rosemary ging 06/27/2024 9:07 AM RN TESTING Impressions 06/27/2024 9:08 AM RN TESTING IMPRESSION: As above. > Interpreting Provider: Kody Rivera MD on 06/27/2024 9:08 AM Narrative 06/27/2024 9:08 AM RN TESTING PROCEDURE: XR CHEST 1VW PORTABLE DATE/TIME OF EXAM: 06/26/2024 8:38 PM CLINICAL INFORMATION: None relevant/not provided if blank. Indication: N30.90: Cystitis, unspecified without hematuria Additional History: COMPARISON: None. FINDINGS: A right arm peripherally inserted central catheter tip overlies the superior vena cava. Hazy bibasilar opacities likely reflecting small effusions and associated atelectasis/airspace disease. Additional patchy right midlung airspace disease/atelectasis. The pulmonary vasculature is upper limits of normal. No pneumothorax. Apparent cardiomegaly may be due to technique. Procedure Note Kody Rivera MD - 06/27/2024 PROCEDURE: XR CHEST 1VW PORTABLE DATE/TIME OF EXAM: 06/26/2024 8:38 PM CLINICAL INFORMATION: None relevant/not provided if blank. Indication: N30.90: Cystitis, unspecified without hematuria Additional History: COMPARISON: None. FINDINGS: A right arm peripherally inserted central catheter tipoverlies the superior vena cava. Hazy bibasilar opacities likely reflecting small effusions andassociated atelectasis/airspace disease. Additional patchy right midlung airspace disease/atelectasis. The pulmonary vasculature is upper limits ofnormal. No pneumothorax. Apparent cardiomegaly may be due to technique. IMPRESSION: As above. > Interpreting Provider: Kody Rivera MD on 06/27/2024 9:08 AM Chris Woodall MD DIAGNOSTIC IMAGING O RDERABLES * (ABNORMAL) BASIC METABOLIC PANEL (CALCIUM TOTAL) (06/26/2024 4:30 AM RN TESTING) Glucose 122(H) 70 - 99 mg/dL 06/26/2024 5:58 AM RN TESTING [facility] Sodium 133(L) 136 - 145 mmol/L 06/26/2024 5:58 AM RN TESTING [facility] Potassium 4.2 3.5 - 5.1 mmol/L 06/26/2024 5:58 AM RN TESTING [facility] Chloride 100 98 - 107 mmol/L 06/26/2024 5:58 AM RN TESTING [facility] CO2 25 22 - 29 mmol/L 06/26/2024 5:58 AM [facility] Calcium 9.0 8.4 - 10.4 mg/dL 06/26/2024 5:58 AM [facility] Anion Gap 8 6 - 16 mmol/L 06/26/2024 5:58 AM [facility] BUN 12 7 - 26 mg/dL 06/26/2024 5:58 AM [facility] Creatinine 0.64 0.57 - 1.11 mg/dL 06/26/2024 5:58 AM [facility] eGFR by CKD-EPI >90 >=90 mL/min/1.7 3 m2 06/26/2024 5:58 AM [facility] Blood BLOOD SPECIMEN / Unknown Lab Venipuncture / Unknown 06/26/2024 4:30 AM RN TESTING 06/26/2024 5:17 AM RN TESTING Chris Woodall MD LAB - CHEMISTRY RK LUIS [facility] Organization Address City/State/ZIP Co de Phone Number [facility] [address] [place] [address] * (ABNORMAL) URINALYSIS REFLEX MICROSCOPIC REFLEX CULTURE (06/26/2024 2:51 AM RN TESTING) Only the most recent of2 resultswithin the time period is included. Color UA Yellow Yellow, Straw 06/26/2024 3:30 AM [facility] Clarity UA Clear Clear 06/26/2024 3:30 AM [facility] Glucose UA Normal Normal 06/26/2024 3:30 AM [facility] Bilirubin UA Negative Negative 06/26/2024 3:30 AM [facility] Ketone UA Negative Negative 06/26/2024 3:30 AM [facility] Specific [place] UA 1.033(H) 1.005 - 1.030 06/26/2024 3:30 AM [facility] Blood UA 3+(A) Negative 06/26/2024 3:30 AM [facility] pH UA 7.0 5.0 - 9.0 pH 06/26/2024 3:30 AM [facility] Protein UA Trace(A) Negative 06/26/2024 3:30 AM [facility] Urobilinogen UA Normal Normal mg/dL 06/26/2024 3:30 AM [facility] Nitrite UA Negative Negative 06/26/2024 3:30 AM [facility] Leukocyte UA 75 JUAN/uL(A) Negative 06/26/2024 3:30 AM [facility] RBC UA >100(A) 0 - 5 # /hpf 06/26/2024 3:30 AM [facility] WBC UA 6-10(A) 0 - 5 # /hpf 06/26/2024 3:30 AM [facility] Bacteria UA None Seen None Seen 06/26/2024 3:30 AM [facility] Squamous Epithelial Cells None Seen 0 - 5 /hpf 06/26/2024 3:30 AM [facility] Urine SUPRAPUBIC URINE SPECIMEN / Unknown Collection / Unknown 06/26/2024 2:51 AM RN TESTING 06/26/2024 3:17 AM RN TESTING [facility] - 06/26/2024 3:30 AM RN TESTING Chris Woodall MD LAB - URINALYSIS ORD ERABLES [facility] [address] [place] [address] * CBC W AUTO DIFFERENTIAL (06/25/2024 9:56 PM RN TESTING) Only the most recent of3 resultswithin the time period is included. WBC 8.6 4.0 - 10.7 x10E9/L 06/25/2024 10:07 PM [facility] RBC Count 4.20 3.90 - 5.20 x10E12/L 06/25/2024 10:07 PM [facility] Hemoglobin 13.3 11.9 - 15.8 g/dL 06/25/2024 10:07 PM [facility] Hematocrit 40.4 34.8 - 46.1 % 06/25/2024 10:07 PM [facility] MCV 96.2 80.0 - 98.0 fL 06/25/2024 10:07 PM [facility] MCH 31.7 26.7 - 33.6 pg 06/25/2024 10:07 PM [facility] MCHC 32.9 31.7 - 36.3 g/dL 06/25/2024 10:07 PM [facility] RDW-CV 12.3 11.3 - 14.8 % 06/25/2024 10:07 PM [facility] Platelet Count 224 150 - 420 x10E9/L 06/25/2024 10:07 PM [facility] MPV 8.6 7.8 - 11.4 fL 06/25/2024 10:07 PM [facility] Neutrophil % 69.8 41.0 - 74.0 % 06/25/2024 10:07 PM [facility] Lymphocyte % 21.5 17.0 - 47.0 % 06/25/2024 10:07 PM [facility] Monocyte % 5.9 3.0 - 11.0 % 06/25/2024 10:07 PM [facility] Eosinophil % 2.3 0.0 - 7.0 % 06/25/2024 10:07 PM [facility] Basophil % 0.2 0.0 - 1.6 % 06/25/2024 10:07 PM [facility] Immature Granulocytes % 0.3 0.0 - 1.0 % 06/25/2024 10:07 PM [facility] Neutrophil Absolute 6.01 1.60 - 7.50 x10E9/L 06/25/2024 10:07 PM [facility] Lymphocyte Absolute 1.85 1.00 - 4.40 x10E9/L 06/25/2024 10:07 PM [facility] Monocyte Absolute 0.51 0.15 - 1.00 x10E9/L 06/25/2024 10:07 PM [facility] Eosinophil Absolute 0.20 0.00 - 0.60 x10E9/L 06/25/2024 10:07 PM [facility] Basophil Absolute 0.02 0.00 - 0.13 x10E9/L 06/25/2024 10:07 PM [facility] Blood BLOOD SPECIMEN / Unknown Lab Venipuncture / Unknown 06/25/2024 9:56 PM RN TESTING 06/25/2024 10:03 PM [facility] Chris Woodall MD LAB - HEMATOLOGY ORD ERABLES [facility] [address] [place] [address] * (ABNORMAL) COMPREHENSIVE METABOLIC PANEL (06/25/2024 9:56 PM [facility]) Only the most recent of2 resultswithin the time period is included. Glucose 163(H) 70 - 99 mg/dL 06/25/2024 10:26 PM [facility] Sodium 133(L) 136 - 145 mmol/L 06/25/2024 10:26 PM [facility] Potassium 4.2 3.5 - 5.1 mmol/L 06/25/2024 10:26 PM [facility] Chloride 101 98 - 107 mmol/L 06/25/2024 10:26 PM [facility] CO2 25 22 - 29 mmol/L 06/25/2024 10:26 PM [facility] Calcium 9.3 8.4 - 10.4 mg/dL 06/25/2024 10:26 PM [facility] Anion Gap 7 6 - 16 mmol/L 06/25/2024 10:26 PM [facility] BUN 12 7 - 26 mg/dL 06/25/2024 10:26 PM [facility] Creatinine 0.73 0.57 - 1.11 mg/dL 06/25/2024 10:26 PM [facility] Alkaline Phosphatase 53 40 - 150 U/L 06/25/2024 10:26 PM [facility] ALT 22 0 - 55 U/L 06/25/2024 10:26 PM [facility] AST 19 5 - 34 U/L 06/25/2024 10:26 PM [facility] Protein Total 7.1 6.4 - 8.3 gm/dL 06/25/2024 10:26 PM [facility] Albumin 3.9 3.4 - 5.0 gm/dL 06/25/2024 10:26 PM [facility] Bilirubin Total 0.3 0.2 - 1.2 mg/dL 06/25/2024 10:26 PM [facility] eGFR by CKD-EPI 89(L) >=90 mL/min/1.7 3 m2 06/25/2024 10:26 PM [facility] Blood BLOOD SPECIMEN / Unknown Lab Venipuncture / Unknown 06/25/2024 9:56 PM RN TESTING 06/25/2024 10:03 PM RN TESTING Chris Woodall MD LAB - CHEMISTRY RK LUIS Performing Organization Address [facility]/ZIP Co de Phone Number [facility] [address] [place] [address] * CULTURE BLOOD (06/25/2024 9:24 PM RN TESTING) Only the most recent of4 resultswithin the time period is included. Culture No growth day 5 SHIMA 07/01/2024 2:01 AM RN TESTING [facility] Blood PERIPHERAL BLOOD / Unknown Lab Venipuncture / Unknown 06/25/2024 9:24 PM RN TESTING 06/25/2024 9:38 PM RN TESTING Chris Woodall MD LAB - MICROBIOLOGY O RDERABLES Performing Organization Address [facility] Co de Phone Number [facility] [address] [place], [address] [phone] * LACTIC ACID BLOOD REFLEX TO REPEAT (06/25/2024 9:18 PM RN TESTING) Only the most recent of2 resultswithin the time period is included. Lactic Acid 1.0 <=2.0 mmol/L 06/25/2024 10:26 PM RN TESTING [facility] Blood BLOOD SPECIMEN / Unknown Lab Venipuncture / Unknown 06/25/2024 9:18 PM RN TESTING 06/25/2024 10:02 PM RN TESTING Chris Woodall MD LAB - CHEMISTRY RK LUIS Performing Organization Address [facility] Co de Phone Number [facility] [address] [place] [id number] * MAGNESIUM BLOOD (06/01/2024 3:07 AM RN TESTING) Only the most recent of10 resultswithin the time period is included. Magnesium 1.6 1.6 - 2.6 mg/dL 06/01/2024 4:27 AM RN TESTING [facility] Blood BLOOD SPECIMEN / Unknown Lab Venipuncture / Unknown 06/01/2024 3:07 AM RN TESTING 06/01/2024 4:00 AM RN TESTING Herbie Beauchamp MD LAB - CHEMISTRY RK LUIS [facility] [address] [place] [address], [facility] [phone] * IR Picc Line Insert (05/24/2024 11:57 AM RN TESTING) Anatomical Region Laterality Modality Chest, Upper Extremity Other Narrative 05/24/2024 11:56 AM RN TESTING Herbie Briscoe RN 05/24/2024 11:57 AM Department of Interventional Radiology Procedure Note: PICC line placement History: May Myers is a 68 year old female with a significant past medical history of T2DM, HTN, PVD, COPD, CARYN, hypothyroidism, 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 Indication: IV antibiotic therapy Application Support Developer: Herbie Briscoe RN [facility] Procedures: 1. Limited extremity ultrasound to assess vascular patency 2. Ultrasound guided access of the Right basilic vein. 3. Placement of peripherally inserted central line with magnetic tracking and ECG tip positioning system ([employer]Bridge). Anesthesia: Local anesthesia with 4mL of 1% Lidocaine without epinephrine Procedure in detail: Type of line placed: Single Lumen Power PICC The risks and benefits of PICC placement were explained to Patient. The risks include discussed include pain, inadvertent arterial puncture, infection, blood clots, phlebitis, and cardiac arrhythmias. They were able to consent to the PICC insertion. Timeout and hand hygiene completed prior to procedure. Traffic was limited in the room during the procedure. Skin prepped with appropriate antibacterial solution prior to skin puncture. Maximum sterile barrier precautions were used including sterile gown and gloves, hat, mask, eye protection and a large sterile drape. Limited ultrasound of the the basilic vein demonstrated patent and compressible vein. A whitlock scale image was documented. The patient was given local anesthesia with 4 milliliters of 1% Lidocaine without epinephrine. The basilic vein was accessed using a micropuncture needle. The needle entry was documented. A 0.018-inch guidewire was then advanced centrally. A small dermatotomy was made at the puncture site, and then the peel-away sheath was advanced into the vein. The length of the catheter was assessed with magnetic tracking and ECG tip positioning system. The PICC line pre-loaded with magnetic tip was then introduced through the peel-away sheath and advanced to the right atrium near the cavoatrial junction. The single lumen PICC was placed using the Seldinger technique with a Right Basilic approach without complication. There was dark, non-pulsatile blood return in all ports and they were easily flushed with saline. The tip of the catheter was guided by the magnetic tracking and ECG tip positioning system (T[employer]Up), The peel-away sheath was removed, and the PICC was secured to the skin with a engineered securement device. An overlying dressing was placed. PICC tip position was verified by ultrasound ECG device. This showed PICC tip in good position in the distal SVC. Reposition of the PICC was not indicated. The patient tolerated the procedure well. Patient Guide Booklet and Fact Sheet for preventing infection placed in chart for discharge packet. Reviewed with: patient and RN Complications: none. All the ports were aspirated and flushed to assure patency. The patient tolerated this procedure without apparent immediate complication. Impression: Successful placement of 37 cm PICC Fr: 4 F single lumen power PICC via the Right basilic vein with tip in the cavo-atrial junction. The procedure was performed by Herbie Briscoe RN [place]-. The final image was reviewed by , Interventional Radiology Attending- David Horner MD The catheter can be used now. Herbie Beauchamp MD IR ORDERABLES * CT US Guided Needle Placement (05/23/2024 11:19 AM RN TESTING) Anatomical Region Laterality Modality Chest, Abdomen Computed Tomogra phy 05/23/2024 11:3 0 AM RN TESTING Impressions 05/23/2024 12:16 PM RN TESTING Impression: Successful ultrasound-guided aspiration of suprapubic abdominal wall fluid collection, as described above. The aspirate was dee/groin with debris, and approximately 7 mL of fluid were drained during the procedure. I performed/was present throughout the procedure Moderate sedation on this patient was ordered by me, administered intravenously in my presence, and monitored by the procedure nurse as an independent trained observer who was present throughout the procedure. The following parameters were monitored: oxygen saturation, heart rate, blood pressure, and response to care. Intra-service sedation start time was 11:02 and end time was 11:31 during which I was present. Total physician intra-service sedation time was 29 minutes. For details on pre moderate sedation and post moderate sedation patient evaluation, please review the evaluation forms in [facility]. For details on monitored clinical parameters during the intra-service sedation time, please review the procedure nurse documentation in [facility]. > Interpreting Provider: Mary Huynh MD on 05/23/2024 12:16 PM Narrative 05/23/2024 12:16 PM RN TESTING History: 68-year-old female with suprapubic fluid collection. Operators: 1.Dr. Huynh, Attending Physician 2.Dr. Burnett, resident physician Anesthesia: 1.Local anesthesia - 10 mL of 1% lidocaine 2.Intravenous conscious sedation - Versed 0.5 mg and Fentanyl 25 mcg Procedure: 1.Limited ultrasound evaluation of the suprapubic abdomen. 2.Ultrasound-guided aspiration of suprapubic abdominal fluid collection. Procedure in detail: The procedure, risks, and possible complications were explained to the patient in detail, and informed consent was obtained. The patient was placed in a supine position on the procedure table and a limited ultrasound evaluation of the suprapubic abdomen was performed, demonstrating small fluid collection with a thick surrounding wall, measuring approximately 5 x 2 cm. The patient received intravenous Versed and Fentanyl for conscious sedation. A qualified radiology nurse monitored the patient s vital signs throughout the procedure. The marked site and skin around the region of interest was prepped and draped in sterile fashion. Local anesthesia was provided with 1% Lidocaine. A 5 [place]oran coaxial needle system was advanced in stages under real time ultrasound guidance. Upon aspiration, the outer-sheath was advanced within the targeted fluid collection. The initial aspirate was dee/maroon with debris, and approximately 7 mL of fluid were drained during the procedure. An appropriate amount of aspirate was sent for necessary laboratory work up. Final imaging showed the catheter in satisfactory position. Betadine irrigation was performed through the centesis catheter. Catheter and Betadine were removed. The patient tolerated the procedure well and was transferred to the [facility] area in stable condition. There were no immediate complications associated with the procedure. Procedure Note Mary Huynh, DO - 05/23/2024 History: 68-year-old female with suprapubic fluid collection. Operators: 1.Dr. Huynh, Attending Physician 2.Dr. Burnett, resident physician Anesthesia: 1.Local anesthesia - 10 mL of 1% lidocaine 2.Intravenous conscious sedation - Versed 0.5 mg and Fentanyl 25 mcg Procedure: 1.Limited ultrasound evaluation of the suprapubic abdomen. 2.Ultrasound-guided aspiration of suprapubic abdominal fluid collection. Procedure in detail: The procedure, risks, and possible complications were explained to the patient in detail, and informed consent was obtained. The patient was placed in a supine position on the procedure table and a limitedultrasound evaluation of the suprapubic abdomen was performed, demonstrating small fluid collection with a thick surrounding wall, measuring approximately 5x 2 cm. The patient received intravenous Versed and Fentanyl for conscious sedation. A qualified radiology nurse monitored the patient s vital signs throughout the procedure. The marked site and skin around the region of interest was prepped and draped in sterile fashion. Local anesthesia was provided with 1% Lidocaine. A 5 [place]oran coaxial needle system was advanced in stagesunder real time ultrasound guidance. Upon aspiration, the outer-sheath was advanced within the targeted fluid collection. The initial aspirate was dee/maroon with debris, and approximately 7 mL of fluid were drained during the procedure. An appropriate amount of aspirate was sent for necessary laboratory work up. Final imaging showed the catheter in satisfactory position. Betadine irrigation was performed through the centesis catheter. Catheter and Betadine were removed. The patient tolerated the procedure well [facility] There were no immediate complicationsassociated with the procedure. Impression: Successful ultrasound-guided aspiration of suprapubicabdominal wall fluid collection, as described above. The aspirate was dee/groin with debris, and approximately 7 mL of fluid were drained during the procedure. I performed/was present throughout the procedure Moderate sedation onthis patient was ordered by me, administered intravenously in my presence,and monitored by the procedure nurse as an independent trained observer whowas present throughout the procedure. The following parameters weremonitored: oxygen saturation, heart rate, blood pressure, and response to care. Intra-service sedation start time was 11:02 and end time was 11:31during which I was present. Total physician intra-service sedation time was 29 minutes. For details on pre moderate sedation and post moderate sedation patient evaluation, please review the evaluation forms in [facility]. Fordetails on monitored clinical parameters during the intra-service sedation time, please review the procedure nurse documentation in [facility]. > Interpreting Provider: Mary Huynh MD on 05/23/2024 12:[address] ORDERABLES * CULTURE FUNGUS OTHER+FUNGUS SMEAR (05/23/2024 11:15 AM RN TESTING) Only the most recent of2 resultswithin the time period is included. Culture No fungus isolated SHIMA 06/20/2024 6:40 AM RN TESTING [facility] Fungus Stain No yeast or hyphae seen 06/20/2024 6:40 AM RN TESTING [facility] Microbiology BODY FLUID SPECIMEN / Unknown Collection / Unknown 05/23/2024 11:15 AM RN TESTING 05/23/2024 11:44 AM RN TESTING Herbie Beauchamp MD LAB - MICROBIOLOGY O RDERABLES [facility] [address] [place], [place] [address], [facility] [phone] * CYTOLOGY NON-DIKE SUPERVISOR PANEL (STL) (05/23/2024 11:15 AM RN TESTING) Case Report Medical Cytology Report Case: [id number] Authorizing Provider: Herbie Beauchamp MD Collected: 05/23/2024 11:15 AM Ordering Location: [facility] SHORT STAY UNIT Received: 05/23/2024 01:35 PM Pathologist: Benjamin Arechiga MD Specimen: Body Fluid , Suprapubic abscess 05/24/2024 1:19 PM RN TESTING [facility] Specimen Adequacy Adequate cellularity for evaluation. 05/24/2024 1:19 PM RN TESTING [facility] Final Diagnosis Body fluid, supra pubic abscess, aspiration: - Heavy acute inflammation and blood - No malignancy identified 05/24/2024 1:19 PM [facility] Clinical History The patient is a 68-year-old female who underwent aspiration of a suprapubic abscess 05/24/2024 1:19 PM [facility] Gross Description 1 pap stained cytospin and 1 cell block from 2cc of red, cloudy fluid 05/24/2024 1:19 PM [facility] Microscopic Description Microscopic examination substantiates the final diagnosis. 05/24/2024 1:19 PM [facility] Pathologist Location at [facility] 05/24/2024 1:19 PM [facility] Disclaimer The performance characteristics of all immunohistochemical and indirect immunofluorescence stains (if any) cited in this report were determined by the Histopathology Laboratory of [facility]. Some of these tests rely on the use of analyte-specific reagents and are subject to specific labeling requirements by the US Food and Drug Administration. Such tests were developed by the Histology Laboratory of [facility] and have not been cleared or approved by the FDA. The FDA has determined that such clearance and approval is not necessary. These tests are used for clinical purposes and should not be regarded as investigational or for research. This laboratory is certified under the Clinical Laboratory Improvement Amendments (CLIA) as qualified to perform high complexity clinical laboratory testing. This case has been personally reviewed and interpreted by the attending (teaching) pathologist. 05/24/2024 1:19 PM [facility] Embedded Images 05/24/2024 1:19 PM [facility] Pathology/Cytolo gy BODY FLUID SPECIMEN / Unknown Collection / Unknown 05/23/2024 11:15 AM RN TESTING 05/23/2024 1:35 PM RN TESTING Herbie Beauchamp MD LAB - PATHOLOGY/CYTO LOGY ORDERABLES [facility] [address] [place] [address], [facility] [phone] * LAB MISC TEST (NOT BLOOD) (05/23/2024 11:15 AM RN TESTING) Test Name CRBF 06/12/2024 11:09 AM RN TESTING [facility] REF LAB NON INTERF Test Result See Scanned Report 06/12/2024 11:09 AM RN TESTING [facility] REF LAB NON INTERF Comment Ref Lab ALARCON 06/12/2024 11:09 AM RN TESTING [facility] REF LAB NON INTERF Other SPECIMEN FROM [facility] / Unknown Collection / Unknown 05/23/2024 11:15 AM RN TESTING 05/23/2024 12:36 PM RN TESTING Herbie Beauchamp MD LAB - BODY FLUID ORD ERABLES [facility] REF LAB NON INTERF [address] [place] [address], [facility] [phone] * (ABNORMAL) CULTURE FLUID+GRAM STAIN (05/23/2024 11:15 AM RN TESTING) Culture Light Staphylococcus epidermidis(AA) SHIMA 05/27/2024 12:01 PM RN TESTING [facility] Culture Light Staphylococcus lugdunensis(AA) SHIMA 05/27/2024 12:01 PM RN TESTING [facility] Gram Stain Light Polymorphonuclear cells 05/27/2024 12:01 PM RN TESTING [facility] Gram Stain No organisms seen 024 12:01 PM RN TESTING [facility] Fluid BODY FLUID SPECIMEN / Unknown Collection / Unknown 05/23/2024 11:15 AM RN TESTING 05/23/2024 11:44 AM RN TESTING Narrative Organism Antibiotic Method Susceptibility Staphylococcus epidermidis Clindamycin SHIMA <=0.12 ug/mL: Susceptible Staphylococcus epidermidis Doxycycline SHIMA 4 ug/mL: Susceptible Staphylococcus epidermidis Inducible Cli ndamycin Resistance SHIMA NEG ug/mL: Neg Staphylococcus epidermidis Oxacillin SHIMA >=4 ug/mL: Resistant Staphylococcus epidermidis Trimethoprim- sulfamethox azole SHIMA 160 ug/mL: Resistant Staphylococcus epidermidis Vancomycin SHIMA 2 ug/mL: Susceptible Staphylococcus lugdunensis Cefazolin SHIMA Susceptible Staphylococcus lugdunensis Clindamycin SHIMA <=0.12 ug/mL: Resistant Staphylococcus lugdunensis Doxycycline SHIMA <=0.5 ug/mL: Susceptible Staphylococcus lugdunensis Inducible Cli ndamycin Resistance SHIMA POS ug/mL: Pos Staphylococcus lugdunensis Oxacillin SHIMA 2 ug/mL: Susceptible Staphylococcus lugdunensis Trimethoprim- sulfamethox azole SHIMA <=10 ug/mL: Susceptible Comment: This isolate is presumed to be resistant to clindamycin on the basis of detection of inducible clindamycin resistance. Herbie Beauchamp MD LAB - MICROBIOLOGY O BLANK Performing Organization Address [place]/[facility] Co de Phone Number [facility] [address] [place] [address], [facility] [phone] * CULTURE AFB+SMEAR (05/23/2024 11:15 AM RN TESTING) Culture No acid-fast bacillus isolated 07/04/2024 8:25 AM RN TESTING [facility] AFB Smear No acid-fast bacilli seen 07/04/2024 8:25 AM RN TESTING [facility] Microbiology BODY FLUID SPECIMEN / Unknown Collection / Unknown 05/23/2024 11:15 AM RN TESTING 05/23/2024 12:23 PM RN TESTING Herbie Beauchamp MD LAB - MICROBIOLOGY O BLANK Performing Organization Address [facility] Phone Number [facility] [address] [place] [address], [facility] [phone] * CULTURE ANAEROBE (05/23/2024 11:15 AM RN TESTING) Culture No anaerobic organisms isolated SHIMA 05/29/2024 8:29 AM RN TESTING [facility] Microbiology BODY FLUID SPECIMEN / Unknown Collection / Unknown 05/23/2024 11:15 AM RN TESTING 05/23/2024 11:44 AM RN TESTING Herbie Beauchamp MD LAB - MICROBIOLOGY O BLANK Performing Organization Address [facility] Co de Phone Number [facility] [address] [place] [address], [facility] [phone] * CT Abdomen Pelvis W Contrast (05/22/2024 9:30 AM RN TESTING) Anatomical Region Laterality Modality Abdomen, Pelvis Computed Tomogra phy 05/22/2024 9:44 AM RN TESTING Impressions 05/22/2024 1:10 PM RN TESTING Impression 1. Superior to the suprapubic catheter tract in the anterior abdominal wall, there is reaccumulation of a rim-enhancing fluid collection measuring up to 5.4 cm containing foci of gas concerning for abscess. 2. Multiple soft tissue defects/ulcerations noted in the posterior soft tissues at the level of the sacrum/coccyx/rectum; no evidence of fluid collection/osteomyelitis. 3. Indeterminate 1.5 cm hypoattenuating liver lesion in segment 4A. CT/MR liver protocol can be performed for further evaluation. 4. No evidence of nephrolithiasis or hydronephrosis as clinically queried. Report dictated by Jeanmarie Jasso MD(residential sales representative). I, Bina Reynolds MD have personally reviewed and interpreted this examination/study. > Interpreting Provider: Bina Reynolds MD on 05/22/2024 1:10 PM Narrative 05/22/2024 1:10 PM RN TESTING PROCEDURE: CT ABDOMEN PELVIS W CONTRAST, DATE/TIME OF EXAM: 05/22/2024 9:31 AM, LOCATION [facility] INDICATION: A49.9: Infection due to bacteria resistant to multiple antimicrobial drugs Z16.35: Infection due to bacteria resistant to multiple antimicrobial drugs ADDITIONAL CLINICAL INFORMATION: Ordering Provider Reason For Exam: eval for hydro, nida-renal abscess, stones, and recent abd wall fluid collection s/p IR drainage in setting of recurrent UTI COMPARISON: None. TECHNIQUE: CT of the abdomen and pelvis was performed following the uneventful administration of 100 mL of Isovue 370 intravenous contrast according to standard protocol. Findings Lower Chest: Subsegmental atelectatic changes are noted in the visualized lungs.. Abdomen: Liver and Gall Bladder: An indeterminate 1.5 cm hypoattenuating lesion noted at hepatic segment 4A. Other subcentimeter hypoattenuating lesions are too small to be characterized. The gallbladder is surgically absent. No intra or extrahepatic biliary dilatation. 1 Spleen: Normal. Pancreas: Normal. Kidneys and Adrenals: The adrenals are normal. No hydronephrosis. No renal calculi. Gastrointestinal: The stomach appears normal. The small bowel and colon appear normal without wall thickening or obstruction. The distal sigmoid colon appears to herniate inferiorly to the left of the rectum into the ischial rectal fossa. Minimal colonic diverticulosis without evidence of diverticulitis. Mesentery/Peritoneum/Retroperitoneum: No free intraperitoneal air. No free fluid. No lymphadenopathy. Pelvic Structures: A suprapubic Clancy catheter projects into the bladder, which contains foci of gas. The uterus is absent. Vasculature: The aorta is atherosclerotic. Marked focal narrowing of the left common iliac artery. Bones and Soft tissues: Bone windows demonstrate no suspicious lytic or blastic lesions. The visible osseous structures are intact. Degenerative changes are seen in the spine. Diffuse demineralization of the osseous structures. Adjacent to the suprapubic Clancy catheter tract in the lower anterior abdomen, there is redevelopment of a rim-enhancing fluid collection containing small foci of gas measuring 5.4 x 2.5 x 3.3 cm (series 3, image 137 and series 5, image 22) which abuts the rectus abdominis muscle. There is adjacent soft tissue thickening adjacent to the collection. There are soft tissue defects/ulcerations noted in the posterior soft tissues at the level of the sacrum/coccyx/rectum. There is loss of fat planes in the gluteals and diffuse soft tissue attenuation of the posterior soft tissues at the level of the pelvis with loss of subcutaneous fat. No evidence of underlying osteomyelitis or fluid collections. Procedure Note Bina Reynolds MD - 05/22/2024 PROCEDURE: CT ABDOMEN PELVIS W CONTRAST, DATE/TIME OF EXAM: 05/22/2024 9:31 AM, LOCATION [facility] INDICATION: A49.9: Infection due to bacteria resistant to multiple antimicrobialdrugs Z16.35: Infection due to bacteria resistant to multiple antimicrobialdrugs ADDITIONAL CLINICAL INFORMATION: Ordering Provider Reason For Exam: eval for hydro, nida-renal abscess, stones, and recent abd wall fluid collection s/p IR drainage in settingof recurrent UTI COMPARISON: None. TECHNIQUE: CT of the abdomen and pelvis was performed following the uneventful administration of 100 mL of Isovue 370 intravenous contrast according to standard protocol. Findings Lower Chest: Subsegmental atelectatic changes are noted in the visualized lungs.. Abdomen: Liver and Gall Bladder: An indeterminate 1.5 cm hypoattenuating lesion noted at hepatic [id number]. Other subcentimeter hypoattenuating lesions are too small to be characterized. The gallbladder is surgically absent. No intra or extrahepatic biliary dilatation. 1 Spleen: Normal. Pancreas: Normal. Kidneys and Adrenals: The adrenals are normal. No hydronephrosis. No renal calculi. Gastrointestinal: The stomach appears normal. The small bowel and colon appear normalwithout wall thickening or obstruction. The distal sigmoid colon appears to herniate inferiorly to the left of the rectum into the ischial rectal fossa. Minimal colonic diverticulosis without evidence ofdiverticulitis. Mesentery/Peritoneum/Retroperitoneum: No free intraperitoneal air. No free fluid. No lymphadenopathy. Pelvic Structures: A suprapubic Clancy catheter projects into the bladder, which containsfoci of gas. The uterus is absent. Vasculature: The aorta is atherosclerotic. Marked focal narrowing of the left common iliac artery. Bones and Soft tissues: Bone windows demonstrate no suspicious lytic or blastic lesions. The visible osseous structures are intact. Degenerative changes are seen inthe spine. Diffuse demineralization of the osseous structures. Adjacent to the suprapubic Clancy catheter tract in the lower anterior abdomen, there is redevelopment of a rim-enhancing fluid collection containing small foci of gas measuring 5.4 x 2.5 x 3.3 cm (series 3,image 137 and series 5, image 22) which abuts the rectus abdominis muscle.There is adjacent soft tissue thickening adjacent to the collection. There are soft tissue defects/ulcerations noted in the posterior soft tissues at the level of the sacrum/coccyx/rectum. There is loss of fat planes in the gluteals and diffuse soft tissue attenuation of theposterior soft tissues at the level of the pelvis with loss of subcutaneous fat.No evidence of underlying osteomyelitis or fluid collections. Impression 1. Superior to the suprapubic catheter tract in the anterior abdominal wall, there is reaccumulation of a rim-enhancing fluid collectionmeasuring up to 5.4 cm containing foci of gas concerning for abscess. 2. Multiple soft tissue defects/ulcerations noted in the posterior soft tissues at the level of the sacrum/coccyx/rectum; no evidence of fluid collection/osteomyelitis. 3. Indeterminate 1.5 cm hypoattenuating liver lesion in segment 4A.CT/MR liver protocol can be performed for further evaluation. 4. No evidence of nephrolithiasis or hydronephrosis as clinicallyqueried. Report dictated by Jeanmarie Jasso MD(residential sales representative). I, Bina Reynolds MD have personally reviewed and interpreted this examination/study. > Interpreting Provider: Bina Reynolds MD on 05/22/2024 1:10 PM Herbie Beauchamp MD CT ORDERABLES * (ABNORMAL) URINE MICROSCOPIC ONLY REFLEX TO CULTURE (05/21/2024 1:41 PM RN TESTING) Reflex Status Culture to follow 05/21/2024 2:14 PM RN TESTING [facility] RBC UA 11-20(A) None Seen, 0-2, 3-5 /HPF 05/21/2024 2:14 PM [facility] WBC UA >100(A) None Seen, 0-5 /HPF 05/21/2024 2:14 PM [facility] Bacteria UA 3+(A) None /HPF 05/21/2024 2:14 PM RN TESTING [facility] Squamous Epithelial Cells UA 0-2 None Seen, 0-2, 3-5 /HPF 05/21/2024 2:14 PM RN TESTING [facility] Mucus UA 1+ /LPF 05/21/2024 2:14 PM RN TESTING [facility] Calcium Oxalate UA Occasional( A) None /HPF 05/21/2024 2:14 PM [facility] Urine URINE SPECIMEN OBTAINED BY CLEAN CATCH PROCEDURE / Unknown Collection / Unknown 05/21/2024 1:41 PM RN TESTING 05/21/2024 1:52 PM RN TESTING Narrative [facility] - 05/21/2024 2:14 PM RN TESTING Urine sample less that 1 mL. Microscopic exam performed on unconcentrated sample. Simi Thomas MEETING SPECIALIST-RETURN CHECKER LAB - URINAL YSIS ORDERABLES [facility] [address] [place] [id number], [facility] [phone] * PT-INR [facility] (05/21/2024 12:58 PM RN TESTING) Only the most recent of2 resultswithin the time period is included. PT 12.2 12.1 - 14.8 Seconds 05/21/2024 1:36 PM RN TESTING [facility] INR 0.9 See Comment 05/21/2024 1:36 PM RN TESTING [facility] Comment:The suggested therap eutic range for standard coumadin (warfarin) therapy is an INR of 2.0-3.0. For high-risk patients (Mechanical Mitral Valve Prosthesis, etc.), the suggested prophylactic therapeutic range is an INR of 2.5-3.5. Blood BLOOD SPECIMEN / Unknown Venipuncture / Unknown 05/21/2024 12:58 PM RN TESTING 05/21/2024 1:15 PM RN TESTING Kishore Godinez MD LAB - COAGULATION OR DERABLES [facility] [address] [place] [address], [facility] [phone] * PROC CATHETER CHANGE/INSERTION (05/17/2024 12:50 PM RN TESTING) Narrative Vicky Costa LPN - 05/17/2024 12:50 PM RN TESTING Vicky Costa LPN 05/18/2024 2:01 PM Patient arrived to clinic for SP catheter change. Existing 16fr straight catheter removed by deflating 9cc of sterile water for catheter balloon. Under sterile technique, the stoma was cleansed with betadine, a new 16fr straight catheter was lubricated and inserted into the stoma. 10ml of sterile water used to inflate catheter balloon, patient tolerated procedure well. 250ml of dark yellow urine emptied from bladder upon catheter insertion. Urine culture collected. Catheter attached to leg bag, and secured to R inner leg via stat lock. Patient to follow up in 4 weeks for SP catheter change. Salud Connelly MEETING SPECIALIST-RETURN CHECKER PROCEDURE/MINOR SURGICAL ORDERABLES * CT Perc Drainage Cath Exchange (05/17/2024 8:37 AM RN TESTING) Anatomical Region Laterality Modality Abdomen Computed Tomogra phy 05/17/2024 4:37 PM RN TESTING Impressions 05/17/2024 4:41 PM RN TESTING Impression: CT-guided tube check through the existing pigtail drainage catheter in the anterior abdominal wall showed near complete resolution of the abscess cavity without evidence of fistulous connection to adjacent structures. Given these CT findings and the fact that the patient was symptom-free, the catheter was removed under CT guidance. Note: The patient was explained the possibility of recurrence of the abscess/collection. I, Dr. Matias Saleh, performed/was present throughout the procedure. > Interpreting Provider: Matias Saleh DO on 05/17/2024 4:41 PM Narrative 05/17/2024 4:41 PM RN TESTING PROCEDURE: CT PERC DRAINAGE CATH EXCHANGE DATE/TIME OF EXAM: 05/17/2024 8:42 AM Indication: N30.80: Abscess of bladder History: 68-year-old female with anterior abdominal wall abscess status post drain placement. Operators: 1.Dr. Matias Saleh, Attending Physician Anesthesia: None Procedure: 1.Limited non-contrast CT of the abdomen. 2.CT-guided abscessogram/tube check through the existing 10 [place] ReSolve pigtail drainage catheter in the anterior abdominal wall. 3.Removal of the existing catheter in the anterior abdominal wall. 4.Post-procedure limited non-contrast CT of the abdomen. Contrast: 10 mL of Isovue-200 M Procedure in detail: The procedure, risks, and possible complications were explained to the patient in detail, and informed consent was obtained. The patient was placed supine on the CT table. Limited non-contrast CT of the abdomen was performed which showed the existing 10 [place] pigtail drainage catheter in the anterior abdominal wall with minimal surrounding fluid. Contrast was hand injected through the existing catheter and abscessogram/tube check was performed, which demonstrated near complete resolution of the previously seen abscess cavity and no evidence of fistulous connection with adjacent structures. Given these CT findings and the fact that the patient is symptom-free, the decision was made to remove the catheter after giving 2 cc of Betadine fluid into the collection for bacteriostasis and to act as a mild sclerosant. Then, the catheter was cut and removed. Follow-up CT showed no residual catheter fragment. The patient tolerated the procedure well and was transferred to the holding area in stable condition. There were no immediate complications associated with the procedure. Procedure Note Matias Saleh MD - 05/17/2024 PROCEDURE: CT PERC DRAINAGE CATH EXCHANGE DATE/TIME OF EXAM: 05/17/2024 8:42 AM Indication: N30.80: Abscess of bladder History: 68-year-old female with anterior abdominal wall abscess status post drain placement. Operators: 1.Dr. Matias Saleh, Attending Physician Anesthesia: None Procedure: 1.Limited non-contrast CT of the abdomen. 2.CT-guided abscessogram/tube check through the existing 10 FrenchReSolve pigtail drainage catheter in the anterior abdominal wall. 3.Removal of the existing catheter in the anterior abdominal wall. 4.Post-procedure limited non-contrast CT of the abdomen. Contrast: 10 mL of Isovue-200 M Procedure in detail: The procedure, risks, and possible complications were explained to the patient in detail, and informed consent was obtained. The patient was placed supine on the CT table. Limited non-contrast CT of the abdomenwas performed which showed the existing 10 [place] pigtail drainage catheterin the anterior abdominal wall with minimal surrounding fluid. Contrast was hand injected through the existing catheter and abscessogram/tube check was performed, which demonstrated near complete resolution of the previously seen abscess cavity and no evidence of fistulous connection with adjacent structures. Given these CT findingsand the fact that the patient is symptom-free, the decision was made toremove the catheter after giving 2 cc of Betadine fluid into the collection for bacteriostasis and to act as a mild sclerosant. Then, the catheter wascut and removed. Follow-up CT showed no residual catheter fragment. The patient tolerated the procedure well [facility] There were no immediate complicationsassociated with the procedure. Impression: CT-guided tube check through the existing pigtail drainage catheter in the anterior abdominal wall showed near complete resolutionof the abscess cavity without evidence of fistulous connection to adjacent structures. Given these CT findings and the fact that the patient was symptom-free, the catheter was removed under CT guidance. Note: The patient was explained the possibility of recurrence of the abscess/collection. I, Dr. Matias Saleh, performed/was present throughout the procedure. > Interpreting Provider: Matias Saleh DO on 05/17/2024 4:41 PM Narda Pierce MD CT ORDERABLES * URINALYSIS AUTO - POINT OF CARE (AMB) [facility] (05/17/2024) Glucose UA - Bilirubin UA POCT - Ketones UA POCT - Specific [place] UA 1.015 Blood Urine POCT 3+ pH UA 6.5 Protein UA 1+ Urobilinogen UA - Nitrite UA + WBC UA 2+ Urine URINE / Unknown 05/17/2024 Salud Connelly MEETING SPECIALIST-RETURN CHECKER LAB - POINT OF CARE ORDERABLES * CT Drain W Cath Placement (05/06/2024 1:18 PM RN TESTING) Anatomical Region Laterality Modality Abdomen Computed Tomogra phy 05/06/2024 2:15 PM RN TESTING Impressions 05/12/2024 9:50 AM RN TESTING Impression: Ultrasound-guided placement of a 10 [place] Resolve pigtail drainage catheter in lower anterior abdominal wall, as described above. Follow-up: The catheter is open for external drainage. Flush the catheter with 10 mL of saline three times a day. If the output falls below 5-10 mL/day for three consecutive days, please schedule the patient for an image-guided tube check for possible catheter exchange, repositioning, or removal. I, Dr. Narda Pierce, was present and performed/supervised the entire procedure. Moderate sedation on this patient was ordered by me, administered intravenously in my presence, and monitored by the procedure nurse as an independent trained observer who was present throughout the procedure. The following parameters were monitored: oxygen saturation, heart rate, blood pressure, and response to care. Intra-service sedation start time was 1231 and end time was 1255 during which I was present. Total physician intra-service sedation time was 24 minutes. For details on pre moderate sedation and post moderate sedation patient evaluation, please review the evaluation forms in [facility]. For details on monitored clinical parameters during the intra-service sedation time, please review the procedure nurse documentation in [facility]. > Dictated by Deric Rossi MD (Production Material Handler) 05/06/2024 2:15 PM Narda Sandhu MD have personally reviewed and interpreted this examination/study. > Interpreting Provider: Narda Pierce MD on 05/12/2024 9:50 AM Narrative 05/12/2024 9:50 AM RN TESTING History: 68-year-old female. Anterior abdominal wall fluid collection. Operators: 1.Attending - Narda Pierce 2.Resident - Deric Rossi Anesthesia: 1.Local anesthesia - 10 mL of 1% lidocaine 2.Intravenous conscious sedation - Versed 1 mg and Fentanyl 50 mcg Procedure: 1.Ultrasound-guided placement of a 10 [place] Resolve pigtail drainage catheter in the lower anterior abdominal wall. Procedure in detail: The procedure, risks, and possible complications were explained to the patient/proxy in detail, and informed consent was obtained. The patient was placed in a supine position on the procedure table, and a limited ultrasound evaluation was performed, which showed moderate size loculated fluid collection within the lower anterior abdominal wall, also seen on noncontrast CT. A percutaneous entry site was marked on the skin. The marked site and skin around the region of interest was prepped and draped in sterile fashion. Pre-procedure timeout was performed. Local anesthesia was provided with 1% Lidocaine. A 5 [place]an co-axial needle was advanced in stages under ultrasound guidance. Upon aspiration of fluid, the outer-sheath was advanced within the collection. A 0.035 inch guidewire was looped within the collection, and following series of dilatation/exchanges, a 10 [place] Resolve pigtail drainage catheter was advanced into the lower anterior abdominal wall fluid collection. The initial aspirate was dark red/brown colored fluid aspirated (likely hematoma), and approximately 20-30 mL was aspirated. An appropriate amount of aspirate was sent for ordered studies. The catheter was sutured to the skin and connected to a drainage bag to allow further drainage. The patient tolerated the procedure well and was transferred to the holding area in stable condition. There were no immediate complications associated with the procedure. Procedure Note Narda Pierce MD - 05/12/2024 History: 68-year-old female. Anterior abdominal wall fluid collection. Operators: 1.Attending - Narda Pierce 2.Resident - Deric Rossi Anesthesia: 1.Local anesthesia - 10 mL of 1% lidocaine 2.Intravenous conscious sedation - Versed 1 mg and Fentanyl 50 mcg Procedure: 1.Ultrasound-guided placement of a 10 [place] Resolve pigtail drainage catheter in the lower anterior abdominal wall. Procedure in detail: The procedure, risks, and possible complications were explained to the patient/proxy in detail, and informed consent was obtained. The patientwas placed in a supine position on the procedure table, and a limited ultrasound evaluation was performed, which showed moderate sizeloculated fluid collection within the lower anterior abdominal wall, also seen on noncontrast CT. A percutaneous entry site was marked on the skin. The marked site and skin around the region of interest was prepped anddraped in sterile fashion. Pre-procedure timeout was performed. Localanesthesia was provided with 1% Lidocaine. A 5 [place] co-axial needle was advancedin stages under ultrasound guidance. Upon aspiration of fluid, the outer-sheath was advanced within the collection. A 0.035 inch guidewirewas looped within the collection, and following series ofdilatation/exchanges, a 10 [place] Resolve pigtail drainage catheter was advanced into thelower anterior abdominal wall fluid collection. The initial aspirate was dark red/brown colored fluid aspirated (likely hematoma), and approximately 20-30 mL was aspirated. An appropriate amount of aspirate was sent for ordered studies. The catheter was sutured to the skin and connected to a drainage bag to allow further drainage. The patient tolerated theprocedure well and was transferred to the holding area in stable condition. There were no immediate complications associated with the procedure. Impression: Ultrasound-guided placement of a 10 [place] Resolve pigtail drainage catheter in lower anterior abdominal wall, as described above. Follow-up: The catheter is open for external drainage. Flush thecatheter with 10 mL of saline three times a day. If the output falls below 5-10 mL/day for three consecutive days, please schedule the patient for an image-guided tube check for possible catheter exchange, repositioning,or removal. I, Dr. Narda Pierce, was present and performed/supervised the entire procedure. Moderate sedation on this patient was ordered by me, administered intravenously in my presence, and monitored by theprocedure nurse as an independent trained observer who was present throughout the procedure. The following parameters were monitored: oxygen saturation, heart rate, blood pressure, and response to care. Intra-service sedation start time was 1231 and end time was 1255 during which I was present.Total physician intra-service sedation time was 24 minutes. For details on pre moderate sedation and post moderate sedation patient evaluation, please review the evaluation forms in [facility]. For details on monitored clinical parameters during the intra-service sedation time, please review the procedure nurse documentation in [facility]. > Dictated by Deric Rossi MD (Production Material Handler) 05/06/2024 2:15 PM Narda Sandhu MD have personally reviewed and interpreted this examination/study. > Interpreting Provider: Narda Pierce MD on 05/12/2024 9:50 AM U[address] Vides MD CT ORDERABLES * CREATININE BODY FLUID (05/06/2024 1:13 PM RN TESTING) Creatinine Fluid 0.40 Not Established For Fluids mg/dL 05/06/2024 1:54 PM RN TESTING [facility] Fluid Type Other 05/06/2024 1:54 PM RN TESTING [facility] Other Fluid Source: subQ fluid collection 05/06/2024 1:54 PM RN TESTING [facility] Fluid MISCELLANEOUS SAMPLES / Unknown Collection / Unknown 05/06/2024 1:13 PM RN TESTING 05/06/2024 1:16 PM RN TESTING Narrative [facility] - 05/06/2024 1:54 PM RN TESTING The laboratory has not established the reference interval and analytic performance for this body fluid test. The test result must be integrated into the clinical context for interpretation. Body fluid source not validated, interpret results with caution. Ulices Vides MD LAB - BODY FLUID ORD ERABLES [facility] [address] [place] [address], [place] [phone] * CULTURE WOUND+GRAM STAIN (05/06/2024 12:50 PM RN TESTING) Culture No growth SHIMA 05/08/2024 5:56 PM RN TESTING [facility] Gram Stain Moderate Red blood cells 05/08/2024 5:56 PM RN TESTING [facility] Gram Stain Rare Polymorphonuclear cells 05/08/2024 5:56 PM RN TESTING [facility] Gram Stain No organisms seen 024 5:56 PM RN TESTING [facility] Microbiology CYST TISSUE / Unknown Collection / Unknown 05/06/2024 12:50 PM RN TESTING 05/06/2024 1:17 PM RN TESTING Ulices Vides MD LAB - MICROBIOLOGY O RDERABLES [facility] [address] [place] [address], [facility] [phone] from Last 3 Months Additional Health Concerns Infection Onset Date Last Indicated MDRO Hx Comment:05/06/24 - urine 06/27/2024 06/27/2024 ESBL Hx Comment:05/06/24 - urine 06/27/2024 06/27/2024 Advance Directives * Full Code (Latest Code Status on File) Date Activated Date Inactivated Comments 06/25/2024 9:32 PM 06/29/2024 4:04 AM * Full Code Date Activated Date Inactivated Comments 05/21/2024 1:58 PM 06/01/2024 10:34 PM * Full Code Date Activated Date Inactivated Comments 04/21/2024 9:10 AM 04/24/2024 3:17 PM * Full Code Date Activated Date Inactivated Comments 04/20/2024 8:23 PM 04/21/2024 9:10 AM 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
--- OUTSIDE RECORDS SUMMARY | 2024-08-04 11:39 | XMS_ITS | Clinical Summary ---
Author Organization [facility] Address [address] [place] [address] Care Team Providers Care Back Order Clerk Name Role Phone Jamal Mendez MD Unavailable [phone] Kaye Martinez MD Primary Care Provider [phone] Source Comments [facility] [employer],non-owned Affiliates and Associated Physician Practices is amultiple site organization consisting of ambulatory clinics and hospital sitesin [place], [place], [place] and [place]. This disclosure is being madepursuant to the Care Everywhere program and may not contain all information available regarding this patient. Last updated 18.[facility] [employer] Allergies Active Allergy Reactions Criticality Noted Date [...] PUFFS BY MOUTH EVERY DAY 05/15/2024 Active [id number] ethyl esters (Lovaza) 1 g capsule Take [...] meal for 2 days 4 capsule 07/30/2024 Discontinue d(List Clean-Up) Active Problems Problem Noted [...] Suprapubic catheter dysfunction, initial encount er 04/20/2024 Encounters Date Type Department Care Team Description 08/02/2024 Telephone [facility] - DOG OR ANIMAL SITTER [address] [place] [phone] Erica Singleton MD Establish Care 07/29/2024 2:55 PM HUMAN RESOURCES TRAINER - 07/29/2024 11:59 PM HUMAN RESOURCES TRAINER Hospital Encounter [facility] LAB OP DRAW STATION [address] [place] [phone] Ulices Vides MD Discharge Disposition: Home or Self Care 07/29/2024 10:00 AM HUMAN RESOURCES TRAINER Clinical Support [facility] - Urology [address] [place] [phone] Ulices Vides MD Dysuria ; Malignant neoplasm of uterus, unspecified site (HCC); Urinary incontinence, unspecified type 07/29/2024 Travel 07/14/2024 Telephone [facility] - Urology [address] [place] [phone] Salud Connelly, GOLF SALES ASSOCIATE-GRAIN TRIMMER Results 07/12/2024 10:00 AM HUMAN RESOURCES TRAINER Clinical Support [facility] - Urology [address] [place] [phone] Narda Pierce MD Goodman, Molly T, GOLF SALES ASSOCIATE-GRAIN TRIMMER Neurogenic bladder ; Dysuria; Foreign body in bladder, initial encounter; Malfunction of Clancy catheter, initial encounter ([facility]) 07/12/2024 Travel 06/25/2024 9:01 PM HUMAN RESOURCES TRAINER - 06/28/2024 10:00 PM HUMAN RESOURCES TRAINER Hospital Encounter [facility] 3[facility] MED/ONC [address] [place] [address] Mandi Lyn MD Usman, Ahsan, MD Nangle, Sarah E, DO Henke, Jonathan W, MD Subramanian, Veerakesari, MD Hospitalist Discharge Disposition: Left Against Medical Advice/Discontinued Care 06/12/2024 Telephone [facility] PHYS SURGERY [address] [place] [address] Michael Ya MD URINARY CATHETER PROBLEM 06/07/2024 Telephone [facility] - Infectious Disease [facility] [place] [address] Nieves Mills, RN Follow-up 06/07/2024 Telephone [facility] - Infectious Disease [facility] [place] [address] Nieves Mills, RN Appointment 06/06/2024 Travel 06/06/2024 Telephone [facility] - Infectious Disease [address] [place] [phone] Omid Sanders MD Appointment 05/21/2024 12:18 PM HUMAN RESOURCES TRAINER - 06/01/2024 9:10 PM HUMAN RESOURCES TRAINER Hospital Encounter [facility] GUILLAUME [address] [facility] [place] [address] Kishore Godinez MD Felgenhauer, Joshua, MD Purdy, Justin, MD Bastin, Taylor J, MD Arshad, Iqra, MD Madi, Mahmoud, MD Nguyen, Christopher, DO Hospitalist Discharge Disposition: Left Against Medical Advice/Discontinued Care 05/21/2024 Travel 05/20/2024 Telephone [facility] - Urology [address] [facility] [facility] [address] [place] [address] Salud Connelly, GOLF SALES ASSOCIATE-GRAIN TRIMMER Follow-up 05/19/2024 Orders Only [facility] - Urology [address] [place] [address] Ulices Vides MD Abscess of bladder 05/17/2024 9:45 AM HUMAN RESOURCES TRAINER Clinical Support [facility] - Urology [address] [place] [phone] Narda Pierce MD Goodman, Molly T, GOLF SALES ASSOCIATE-GRAIN TRIMMER Kam Carter MD Indwelling Clancy catheter present 05/17/2024 6:17 AM HUMAN RESOURCES TRAINER - 05/17/2024 9:29 AM HUMAN RESOURCES TRAINER Hospital Encounter [facility] NIDA OP [address] [place] [phone] Narda Pierce MD Farmer, Adam D, MD [facility] Discharge Disposition: Home or Self Care 05/17/2024 Telephone [facility] - Urology [address] [place] [phone] Nat Chapa RN Dysuria 05/17/2024 Travel 05/09/2024 Orders Only [facility] IVR [address] [place] [phone] Narda Pierce MD Abscess of bladder 05/06/2024 10:37 AM HUMAN RESOURCES TRAINER - 05/06/2024 2:15 PM HUMAN RESOURCES TRAINER Hospital Encounter [facility] NIDA OP [address] [place] [phone] Ulices Vides MD Farmer, Adam D, MD [facility] Discharge Disposition: Home or Self Care 05/06/2024 Travel from Last 3 Months Social History Tobacco Use Types Packs/Day Years [...] and heating? Not hard at all 05/22/2024 [facility] - Occupational Stress [...] any time in the past 12 m [facility], were you homeless or living in a long-term (including now)? No 05/22/2024 Sex and Gender Information Value Date Recorded Sex Assigned at Not on file Gender Identity Not on file Sexual Orientation Not on file Last Filed Vital Signs Vital Sign Reading Time Taken Comments Blood Pressure 144/69 07/29/2024 9:50 AM HUMAN RESOURCES TRAINER Pulse 99 07/29/2024 9:50 AM HUMAN RESOURCES TRAINER Temperature 36.1 C (97 F) 07/29/2024 9:50 AM HUMAN RESOURCES TRAINER Respiratory Rate 17 06/28/2024 5:17 PM HUMAN RESOURCES TRAINER Oxygen Saturation 90% 07/29/2024 9:50 AM HUMAN RESOURCES TRAINER Inhaled Oxygen Concentration 21% 05/30/2024 1 :20 AM HUMAN RESOURCES TRAINER Weight 74.4 kg (164 lb) 07/29/2024 9:50 AM HUMAN RESOURCES TRAINER Height 172.7 cm (5' 8) 07/29/2024 9:50 AM HUMAN RESOURCES TRAINER Body Mass Index 24.94 07/29/2024 9:50 AM HUMAN RESOURCES TRAINER Plan of Treatment Upcoming Encounters Date Type Department Care Team (Late st Contact Info) Description 08/05/2024 3:00 PM HUMAN RESOURCES TRAINER Appointment [facility] Health Imaging Services - CT Scan [address] [place] [address] Case Monterroso MD [address] [place] [address] 08/16/2024 9:00 AM CDT Office Visit [facility] - DOG OR ANIMAL SITTER [address] [place] [phone] Mary Mac Che, MD [address] [facility] [address] [place] [phone] 09/08/2024 1:00 PM CDT Procedure visit [facility] - Urology [facility] [facility] [address] [place] [phone] Bette Allred M, DO [address] [facility] 2[address] [place] [phone] Health Maintenance Due Date Last Done Comments BONE DENSITY TESTING 1955 COLOGUARD (AGES 45-75) - COLON CA SCREENING 1954 COLON MONITORING 1954 COLONOSCOPY - COLON CA SCREENING 1954 CT COLONOGRAPHY - COLON CA SCREENING 1954 Colorectal Cancer Screening 1954 FIT - COLON CA SCREENING 1954 FLEX SIG - COLON CA SCREENING 1954 MAMMOGRAM 1954 HEPATITIS C SCREENING 11/03/1972 DTAP/TDAP/TD VACCINES (1 - Tdap) 1973 PNEUMOCOCCAL VACCINE 50+ (1 of 2 - PCV) 1973 ZOSTER VACCINE (1 of 2) 2004 Respiratory Syncytial Virus (RSV) Vaccine Pt: or over 60 yrs (1 - Risk 60-74 years 1-dose series) 2014 COVID-19 VACCINE ( season) 2024 04/12/2023, 06/11/2022, 09/23/2021, Additional history exists DIABETES RETINOPATHY SCREENING 04/21/2024 DIABETES-FOOT EXAM WITH MONOFILAMENT 04/21/2024 DIABETES-HGB A1C 04/21/2024 DEPRESSION SCREENING 06/01/2024 DIABETES - URINE PROTEIN SCREENING 06/01/2024 MEDICARE AWV CALENDAR YEAR 2024 DIABETES-SERUM CREATININE 06/28/20252024, 06/27/2024, 06/26/2024, Additional history exists INFLUENZA VACCINE Completed 02/26/2024, , 03/01/2023, Additional history exists HEPATITIS B VACCINE Aged Out No longe r eligible based on patient's age to complete this topic HIB VACCINE Aged Out No longer eligi ble based on patient's age to complete this topic HPV VACCINE Aged Out No longer eligi ble based on patient's age to complete this topic MENINGOCOCCAL (Group B) VACCINE Aged Out No longer eligible based on patient's age to complete this topic MENINGOCOCCAL VACCINE Aged Out No jocelyne ryan eligible based on patient's age to complete this topic Procedures Procedure Name Priority Date/Time Associated Diagnosis Comments URINALYSIS W/MICROSCOPIC REFLEX TO CULTURE Routine 07/29/2024 3:51 PM HUMAN RESOURCES TRAINER Urinary incontinence, unspecified type CULTURE URINE Routine 07/29/2024 3:51 PM HUMAN RESOURCES TRAINER Urinary incontinence, unspecified type CULTURE URINE Routine 07/29/2024 3:51 PM HUMAN RESOURCES TRAINER Dysuria CULTURE FUNGUS OTHER+FUNGUS SMEAR Routine 07/29/2024 3:45 PM HUMAN RESOURCES TRAINER Dysuria WY CYSTOSCOPY,REMV CALCULUS,COMPLIC Routine 07/14/2024 2:03 PM HUMAN RESOURCES TRAINER Neurogenic bladder WY INSERT TEMP INDWELL BLADD CATH Routine 07/14/2024 12:46 PM HUMAN RESOURCES TRAINER Neurogenic bladder CULTURE URINE Routine 07/12/2024 12:20 PM HUMAN RESOURCES TRAINER Dysuria GLUCOSE - POINT OF CARE Routine 06/28/2024 5:15 PM HUMAN RESOURCES TRAINER VANCOMYCIN LEVEL TROUGH STAT 06/28/2024 1:00 PM HUMAN RESOURCES TRAINER GLUCOSE - POINT OF CARE Routine 06/28/2024 12:14 PM HUMAN RESOURCES TRAINER GLUCOSE - POINT OF CARE Routine 06/28/2024 9:02 AM HUMAN RESOURCES TRAINER VANCOMYCIN LEVEL TROUGH STAT 06/28/2024 4:33 AM HUMAN RESOURCES TRAINER CK BLOOD Add on 06/28/2024 4:32 AM HUMAN RESOURCES TRAINER RENAL FUNCTION PANEL AM Draw 06/28/2024 4:32 AM HUMAN RESOURCES TRAINER CBC W/O DIFFERENTIAL AM Draw 06/28/2024 4:32 AM HUMAN RESOURCES TRAINER VANCOMYCIN LEVEL PEAK STAT 06/28/2024 4:32 AM HUMAN RESOURCES TRAINER GLUCOSE - POINT OF CARE Routine 06/27/2024 7:45 PM HUMAN RESOURCES TRAINER GLUCOSE - POINT OF CARE Routine 06/27/2024 5:54 PM HUMAN RESOURCES TRAINER GLUCOSE - POINT OF CARE Routine 06/27/2024 11:44 AM HUMAN RESOURCES TRAINER GLUCOSE - POINT OF CARE Routine 06/27/2024 8:26 AM HUMAN RESOURCES TRAINER RENAL FUNCTION PANEL AM Draw 06/27/2024 4:13 AM HUMAN RESOURCES TRAINER CBC W/O DIFFERENTIAL AM Draw 06/27/2024 4:13 AM HUMAN RESOURCES TRAINER GLUCOSE - POINT OF CARE Routine 06/26/2024 9:48 PM HUMAN RESOURCES TRAINER XR CHEST 1VW PORTABLE Routine 06/26/2024 8:37 PM HUMAN RESOURCES TRAINER Cystitis GLUCOSE - POINT OF CARE Routine 06/26/2024 6:17 PM HUMAN RESOURCES TRAINER GLUCOSE - POINT OF CARE Routine 06/26/2024 12:35 PM HUMAN RESOURCES TRAINER GLUCOSE - POINT OF CARE Routine 06/26/2024 8:02 AM HUMAN RESOURCES TRAINER BASIC METABOLIC PANEL (CALCIUM TOTAL) AM Draw 06/26/2024 4:30 AM HUMAN RESOURCES TRAINER URINALYSIS REFLEX MICROSCOPIC REFLEX CULTURE Routine 06/26/2024 2:51 AM HUMAN RESOURCES TRAINER CULTURE URINE Routine 06/26/2024 2:51 AM HUMAN RESOURCES TRAINER CK BLOOD Add on 06/25/2024 9:56 PM HUMAN RESOURCES TRAINER COMPREHENSIVE METABOLIC PANEL STAT 06/25/2024 9:56 PM HUMAN RESOURCES TRAINER CBC W AUTO DIFFERENTIAL STAT 06/25/2024 9:56 PM HUMAN RESOURCES TRAINER PT EVAL AND TREAT Routine 06/25/2024 9:3 2 PM HUMAN RESOURCES TRAINER OT EVAL AND TREAT Routine 06/25/2024 9:3 2 PM HUMAN RESOURCES TRAINER CULTURE BLOOD Timed 06/25/2024 9:24 PM HUMAN RESOURCES TRAINER LACTIC ACID BLOOD REFLEX TO REPEAT STAT 06/25/2024 9:18 PM HUMAN RESOURCES TRAINER CULTURE BLOOD Timed 06/25/2024 9:18 PM HUMAN RESOURCES TRAINER GLUCOSE - POINT OF CARE Routine 06/01/2024 7:48 PM HUMAN RESOURCES TRAINER GLUCOSE - POINT OF CARE Routine 06/01/2024 5:23 PM HUMAN RESOURCES TRAINER GLUCOSE - POINT OF CARE Routine 06/01/2024 12:35 PM HUMAN RESOURCES TRAINER GLUCOSE - POINT OF CARE Routine 06/01/2024 8:24 AM HUMAN RESOURCES TRAINER CBC W/O DIFFERENTIAL AM Draw 06/01/2024 3:07 AM HUMAN RESOURCES TRAINER Infection due to bacteria resistant to multiple antimicrobial drugs RENAL FUNCTION PANEL AM Draw 06/01/2024 3:07 AM HUMAN RESOURCES TRAINER Infection due to bacteria resistant to multiple antimicrobial drugs MAGNESIUM BLOOD Routine 06/01/2024 3:07 AM HUMAN RESOURCES TRAINER Infection due to bacteria resistant to multiple antimicrobial drugs GLUCOSE - POINT OF CARE Routine 05/31/2024 9:44 PM HUMAN RESOURCES TRAINER GLUCOSE - POINT OF CARE Routine 05/31/2024 5:07 PM HUMAN RESOURCES TRAINER GLUCOSE - POINT OF CARE Routine 05/31/2024 8:03 AM HUMAN RESOURCES TRAINER CK BLOOD Routine 05/31/2024 5:58 AM HUMAN RESOURCES TRAINER CBC W/O DIFFERENTIAL AM Draw 05/31/2024 5:58 AM HUMAN RESOURCES TRAINER Infection due to bacteria resistant to multiple antimicrobial drugs RENAL FUNCTION PANEL AM Draw 05/31/2024 5:58 AM HUMAN RESOURCES TRAINER Infection due to bacteria resistant to multiple antimicrobial drugs MAGNESIUM BLOOD Routine 05/31/2024 5:58 AM HUMAN RESOURCES TRAINER Infection due to bacteria resistant to multiple antimicrobial drugs GLUCOSE - POINT OF CARE Routine 05/30/2024 8:22 PM HUMAN RESOURCES TRAINER GLUCOSE - POINT OF CARE Routine 05/30/2024 5:48 PM HUMAN RESOURCES TRAINER GLUCOSE - POINT OF CARE Routine 05/30/2024 8:09 AM HUMAN RESOURCES TRAINER CBC W/O DIFFERENTIAL AM Draw 05/30/2024 5:39 AM HUMAN RESOURCES TRAINER Infection due to bacteria resistant to multiple antimicrobial drugs RENAL FUNCTION PANEL AM Draw 05/30/2024 5:39 AM HUMAN RESOURCES TRAINER Infection due to bacteria resistant to multiple antimicrobial drugs MAGNESIUM BLOOD Routine 05/30/2024 5:39 AM HUMAN RESOURCES TRAINER Infection due to bacteria resistant to multiple antimicrobial drugs GLUCOSE - POINT OF CARE Routine 05/29/2024 9:24 PM HUMAN RESOURCES TRAINER GLUCOSE - POINT OF CARE Routine 05/29/2024 2:19 PM HUMAN RESOURCES TRAINER CBC W/O DIFFERENTIAL AM Draw 05/29/2024 8:42 AM HUMAN RESOURCES TRAINER Infection due to bacteria resistant to multiple antimicrobial drugs RENAL FUNCTION PANEL AM Draw 05/29/2024 8:42 AM HUMAN RESOURCES TRAINER Infection due to bacteria resistant to multiple antimicrobial drugs MAGNESIUM BLOOD Routine 05/29/2024 8:42 AM HUMAN RESOURCES TRAINER Infection due to bacteria resistant to multiple antimicrobial drugs GLUCOSE - POINT OF CARE Routine 05/29/2024 8:00 AM HUMAN RESOURCES TRAINER GLUCOSE - POINT OF CARE Routine 05/28/2024 10:44 PM HUMAN RESOURCES TRAINER GLUCOSE - POINT OF CARE Routine 05/28/2024 4:57 PM HUMAN RESOURCES TRAINER RENAL FUNCTION PANEL AM Draw 05/28/2024 3:05 PM HUMAN RESOURCES TRAINER Infection due to bacteria resistant to multiple antimicrobial drugs MAGNESIUM BLOOD Routine 05/28/2024 3:05 PM HUMAN RESOURCES TRAINER Infection due to bacteria resistant to multiple antimicrobial drugs CBC W/O DIFFERENTIAL AM Draw 05/28/2024 3:04 PM HUMAN RESOURCES TRAINER Infection due to bacteria resistant to multiple antimicrobial drugs GLUCOSE - POINT OF CARE Routine 05/28/2024 11:58 AM HUMAN RESOURCES TRAINER GLUCOSE - POINT OF CARE Routine 05/28/2024 8:27 AM HUMAN RESOURCES TRAINER GLUCOSE - POINT OF CARE Routine 05/27/2024 9:17 PM HUMAN RESOURCES TRAINER GLUCOSE - POINT OF CARE Routine 05/27/2024 4:32 PM HUMAN RESOURCES TRAINER CBC W/O DIFFERENTIAL AM Draw 05/27/2024 3:37 PM HUMAN RESOURCES TRAINER Infection due to bacteria resistant to multiple antimicrobial drugs RENAL FUNCTION PANEL AM Draw 05/27/2024 3:37 PM HUMAN RESOURCES TRAINER Infection due to bacteria resistant to multiple antimicrobial drugs MAGNESIUM BLOOD Routine 05/27/2024 3:37 PM HUMAN RESOURCES TRAINER Infection due to bacteria resistant to multiple antimicrobial drugs GLUCOSE - POINT OF CARE Routine 05/27/2024 11:51 AM HUMAN RESOURCES TRAINER GLUCOSE - POINT OF CARE Routine 05/27/2024 7:54 AM HUMAN RESOURCES TRAINER GLUCOSE - POINT OF CARE Routine 05/26/2024 9:32 PM HUMAN RESOURCES TRAINER GLUCOSE - POINT OF CARE Routine 05/26/2024 4:25 PM HUMAN RESOURCES TRAINER GLUCOSE - POINT OF CARE Routine 05/26/2024 11:49 AM HUMAN RESOURCES TRAINER GLUCOSE - POINT OF CARE Routine 05/26/2024 7:28 AM HUMAN RESOURCES TRAINER CBC W/O DIFFERENTIAL AM Draw 05/26/2024 7:12 AM HUMAN RESOURCES TRAINER Infection due to bacteria resistant to multiple antimicrobial drugs RENAL FUNCTION PANEL AM Draw 05/26/2024 7:12 AM HUMAN RESOURCES TRAINER Infection due to bacteria resistant to multiple antimicrobial drugs MAGNESIUM BLOOD Routine 05/26/2024 7:12 AM HUMAN RESOURCES TRAINER Infection due to bacteria resistant to multiple antimicrobial drugs GLUCOSE - POINT OF CARE Routine 05/25/2024 10:04 PM HUMAN RESOURCES TRAINER GLUCOSE - POINT OF CARE Routine 05/25/2024 5:08 PM HUMAN RESOURCES TRAINER GLUCOSE - POINT OF CARE Routine 05/25/2024 12:19 PM HUMAN RESOURCES TRAINER GLUCOSE - POINT OF CARE Routine 05/25/2024 8:06 AM HUMAN RESOURCES TRAINER CK BLOOD Routine 05/25/2024 3:12 AM HUMAN RESOURCES TRAINER CBC W/O DIFFERENTIAL AM Draw 05/25/2024 3:12 AM HUMAN RESOURCES TRAINER Infection due to bacteria resistant to multiple antimicrobial drugs RENAL FUNCTION PANEL AM Draw 05/25/2024 3:12 AM HUMAN RESOURCES TRAINER Infection due to bacteria resistant to multiple antimicrobial drugs MAGNESIUM BLOOD Routine 05/25/2024 3:12 AM HUMAN RESOURCES TRAINER Infection due to bacteria resistant to multiple antimicrobial drugs GLUCOSE - POINT OF CARE Routine 05/24/2024 9:22 PM HUMAN RESOURCES TRAINER GLUCOSE - POINT OF CARE Routine 05/24/2024 6:52 PM HUMAN RESOURCES TRAINER GLUCOSE - POINT OF CARE Routine 05/24/2024 1:01 PM HUMAN RESOURCES TRAINER IR PICC LINE INSERT Routine 05/24/2024 1 1:57 AM HUMAN RESOURCES TRAINER Infection due to bacteria resistant to multiple antimicrobial drugs CBC W/O DIFFERENTIAL AM Draw 05/24/2024 10:20 AM HUMAN RESOURCES TRAINER Infection due to bacteria resistant to multiple antimicrobial drugs RENAL FUNCTION PANEL AM Draw 05/24/2024 10:20 AM HUMAN RESOURCES TRAINER Infection due to bacteria resistant to multiple antimicrobial drugs MAGNESIUM BLOOD Routine 05/24/2024 10:20 AM HUMAN RESOURCES TRAINER Infection due to bacteria resistant to multiple antimicrobial drugs GLUCOSE - POINT OF CARE Routine 05/24/2024 8:32 AM HUMAN RESOURCES TRAINER GLUCOSE - POINT OF CARE Routine 05/23/2024 11:19 PM HUMAN RESOURCES TRAINER GLUCOSE - POINT OF CARE Routine 05/23/2024 5:54 PM HUMAN RESOURCES TRAINER GLUCOSE - POINT OF CARE Routine 05/23/2024 11:[address] HUMAN RESOURCES [address] CT US GUIDED NEEDLE PLACEMENT Routine 05/23/2024 11:19 AM HUMAN RESOURCES TRAINER Infection due to bacteria resistant to multiple antimicrobial drugs Abdominal wall abscess CYTOLOGY NON-TRANSPORT NURSE PANEL (STL) Routine 05/23/2024 11:15 AM HUMAN RESOURCES TRAINER Infection due to bacteria resistant to multiple antimicrobial drugs LAB MISC TEST (NOT BLOOD) Routine 05/23/2024 11:15 AM HUMAN RESOURCES TRAINER CULTURE AFB+SMEAR Routine 05/23/2024 11: 15 AM HUMAN RESOURCES TRAINER CULTURE FUNGUS OTHER+FUNGUS SMEAR Routine 05/23/2024 11:15 AM HUMAN RESOURCES TRAINER CULTURE ANAEROBE Routine 05/23/2024 11:1 5 AM HUMAN RESOURCES TRAINER CULTURE FLUID+GRAM STAIN Routine 05/23/2024 11:15 AM HUMAN RESOURCES TRAINER GLUCOSE - POINT OF CARE Routine 05/23/2024 9:42 AM HUMAN RESOURCES TRAINER CBC W/O DIFFERENTIAL AM Draw 05/23/2024 12:31 AM HUMAN RESOURCES TRAINER Infection due to bacteria resistant to multiple antimicrobial drugs RENAL FUNCTION PANEL AM Draw 05/23/2024 12:31 AM HUMAN RESOURCES TRAINER Infection due to bacteria resistant to multiple antimicrobial drugs MAGNESIUM BLOOD Routine 05/23/2024 12:31 AM HUMAN RESOURCES TRAINER Infection due to bacteria resistant to multiple antimicrobial drugs GLUCOSE - POINT OF CARE Routine 05/22/2024 8:46 PM HUMAN RESOURCES TRAINER GLUCOSE - POINT OF CARE Routine 05/22/2024 4:26 PM HUMAN RESOURCES TRAINER GLUCOSE - POINT OF CARE Routine 05/22/2024 12:25 [address] RESOURCES [address] ABDOMEN PELVIS W CONTRAST Routine 05/22/2024 9:30 AM HUMAN RESOURCES TRAINER Infection due to bacteria resistant to multiple antimicrobial drugs GLUCOSE - POINT OF CARE Routine 05/22/2024 8:35 AM HUMAN RESOURCES TRAINER URINE MICROSCOPIC ONLY REFLEX TO CULTURE STAT 05/21/2024 1:41 PM HUMAN RESOURCES TRAINER URINALYSIS REFLEX MICROSCOPIC REFLEX CULTURE STAT 05/21/2024 1:41 PM HUMAN RESOURCES TRAINER CULTURE URINE STAT 05/21/2024 1:41 PM HUMAN RESOURCES TRAINER XR CHEST 1VW PORTABLE STAT 05/21/2024 1:13 PM HUMAN RESOURCES TRAINER Urinary tract infection without hematuria, site unspecified LACTIC ACID BLOOD REFLEX TO REPEAT Timed 05/21/2024 12:58 PM HUMAN RESOURCES TRAINER PT-INR [facility] STAT 05/21/2024 12:58 PM HUMAN RESOURCES TRAINER COMPREHENSIVE METABOLIC PANEL STAT 05/21/2024 12:58 PM HUMAN RESOURCES TRAINER CBC W AUTO DIFFERENTIAL STAT 05/21/2024 12:58 PM HUMAN RESOURCES TRAINER CULTURE BLOOD Timed 05/21/2024 12:58 PM HUMAN RESOURCES TRAINER CULTURE BLOOD Timed 05/21/2024 12:30 PM HUMAN RESOURCES TRAINER PROC CATHETER CHANGE/INSERTION Routine 05/17/2024 12:50 PM HUMAN RESOURCES TRAINER Indwelling Clancy catheter present CULTURE URINE Routine 05/17/2024 12:28 PM HUMAN RESOURCES TRAINER Dysuria CT PERC DRAINAGE CATH EXCHANGE Routine 05/17/2024 8:37 AM HUMAN RESOURCES TRAINER Abscess of bladder GLUCOSE - POINT OF CARE Routine 05/17/2024 6:54 AM HUMAN RESOURCES TRAINER CBC W AUTO DIFFERENTIAL Routine 05/17/2024 6:50 AM HUMAN RESOURCES TRAINER Abdominal wall abscess URINALYSIS AUTO - POINT OF CARE (AMB) [facility] Routine 05/17/2024 Indwelling Clancy catheter present CT DRAIN W CATH PLACEMENT Routine 05/06/2024 1:18 PM HUMAN RESOURCES TRAINER Abscess of bladder CREATININE BODY FLUID Routine 05/06/2024 1:13 PM HUMAN RESOURCES TRAINER Fluid collection at surgical site, sequela CULTURE URINE Routine 05/06/2024 1:13 PM HUMAN RESOURCES TRAINER Acute cystitis without hematuria CULTURE FUNGUS OTHER+FUNGUS SMEAR Routine 05/06/2024 12:50 PM HUMAN RESOURCES TRAINER Fluid collection at surgical site, sequela CULTURE WOUND+GRAM STAIN Routine 05/06/2024 12:50 PM HUMAN RESOURCES TRAINER Fluid collection at surgical site, sequela GLUCOSE - POINT OF CARE Routine 05/06/2024 11:05 AM HUMAN RESOURCES TRAINER PT-INR [facility] STAT 05/06/2024 11:03 AM HUMAN RESOURCES TRAINER Abdominal wall abscess from Last 3 Months Results * (ABNORMAL) URINALYSIS W/MICROSCOPIC REFLEX TO CULTURE (07/29/2024 3:51 PM HUMAN RESOURCES TRAINER) Color UA Yellow Straw, Yellow 07/29/2024 4:21 PM [facility] Clarity UA Slt Cloudy(A) Clear 07/29/2024 4:21 PM [facility] Specific [place] UA 1.010 1.005 - 1.030 07/29/2024 4:21 PM [facility] pH UA 6.0 5.0 - 8.0 pH 07/29/2024 4:21 PM [facility] Protein UA 2+(A) Negative 07/29/2024 4:21 PM [facility] Glucose UA Negative Negative 07/29/2024 4:21 PM [facility] Ketone UA Negative Negative 07/29/2024 4:21 PM [facility] Bilirubin UA Negative Negative 07/29/2024 4:21 PM [facility] Blood UA 3+(A) Negative 07/29/2024 4:21 PM [facility] Nitrite UA Negative Negative 07/29/2024 4:21 PM [facility] Leukocyte Esterase 2+(A) Negative 07/29/2024 4:21 PM [facility] Urobilinogen UA Negative Negative mg/dL 07/29/2024 4:21 PM [facility] RBC UA >100(A) None Seen, 0-2, 3-5 /HPF 07/29/2024 4:21 PM [facility] WBC UA 21-50(A) None Seen, 0-5 /HPF 07/29/2024 4:21 PM [facility] Bacteria UA Trace(A) None /HPF 07/29/2024 4:21 PM [facility] Squamous Epithelial Cells UA 0-2 None Seen, 0-2, 3-5 /HPF 07/29/2024 4:21 PM [facility] Mucus UA 1+ /LPF 07/29/2024 4:21 PM [facility] Yeast Budding UA Few(A) None /HPF 07/29/19 25 4:21 PM [facility] Calcium Oxalate UA Occasional( A) None /HPF 07/29/2024 4:21 PM [facility] Urine URINE SPECIMEN OBTAINED BY CLEAN CATCH PROCEDURE / Unknown Collection / Unknown 07/29/2024 3:51 PM HUMAN RESOURCES TRAINER 07/29/2024 4:04 PM HUMAN RESOURCES TRAINER [facility] [facility] - 07/29/2024 4:21 PM HUMAN RESOURCES TRAINER Lab Status, Culture Reflex Indicated. Ulices Vides MD LAB - URINALYSIS ORD ERABLES [facility] [address] [place] [address], [facility] [phone] * CULTURE URINE (07/29/2024 3:51 PM HUMAN RESOURCES TRAINER) Only the most recent of7 resultswithin the time period is included. Culture Urine 10,000-50,000 CFU/mL urogenital reese SHIMA 07/31/2024 5:43 AM [facility] MICROBIOLOGY Urine URINE SPECIMEN OBTAINED BY CLEAN CATCH PROCEDURE / Unknown Collection / Unknown 07/29/2024 3:51 PM HUMAN RESOURCES TRAINER 07/29/2024 4:20 PM HUMAN RESOURCES TRAINER Ulices Vides MD LAB - MICROBIOLOGY O RDERABLES [facility] MICRO[facility] [address] [place] [address], [facility] [phone] * [place] CYSTOSCOPY,REMV CALCULUS,COMPLIC (07/14/2024 2:03 PM HUMAN RESOURCES TRAINER) Narrative Salud Connelly APRN-CNP - 07/14/2024 2:03 PM HUMAN RESOURCES TRAINER Salud Connelly APRN-CNP 07/14/2024 2:10 PM Cystoscopy [...] Montejo Salud RUIZ PROCEDURE/MINOR SURGICAL ORDERABLES * [place] INSERT TEMP INDWELL BLADD CATH (07/14/2024 12:46 PM HUMAN RESOURCES TRAINER) Narrative Salud Connelly APRN-CNP - 07/14/2024 12:46 PM HUMAN RESOURCES TRAINER Salud Connelly APRN-CNP 07/14/2024 2:10 PM Procedure: [...] place. Cystoscopy was then performed, see note Salud Connelly, [employer]OLF SALES ASSOCIATE-GRAIN TRIMMER 07/14/2024 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 TRIMMER PROCEDURE/MINOR SURGICAL ORDERABLES * (ABNORMAL) GLUCOSE - POINT OF CARE (06/28/2024 5:15 PM HUMAN RESOURCES TRAINER) Only the most recent of54 resultswithin the time period is included. [facility] Glucose WB/POC 130(H) 70 - 99 mg/dL 06/28/2024 5:48 PM HUMAN RESOURCES TRAINER [facility] Specimen Type Cap Fingerstick 2024 5:48 PM HUMAN RESOURCES TRAINER [facility] Blood BLOOD SPECIMEN / Unknown 06/28/2024 5:15 PM HUMAN RESOURCES TRAINER 06/28/2024 5:48 PM HUMAN RESOURCES TRAINER Case Monterroso MD LAB - POINT O F CARE ORDERABLES Performing Organization Address [facility] Co de Phone Number [facility] [address] [place] [phone] * (ABNORMAL) VANCOMYCIN LEVEL TROUGH (06/28/2024 1:00 PM HUMAN RESOURCES TRAINER) Only the most recent of2 resultswithin the time period is included. [facility] Vancomycin Trough 6.1(L) 10.0 - 20.0 ug/mL 06/28/2024 1:42 PM HUMAN RESOURCES TRAINER [facility] Blood BLOOD SPECIMEN / Unknown Venipuncture / Unknown 06/28/2024 1:00 PM HUMAN RESOURCES TRAINER 06/28/2024 1:03 PM HUMAN RESOURCES TRAINER Mathesu Quesada MD LAB - CHEMIS TRY ORDERABLES Performing Organization Address City/[facility]/ZIP Co de Phone Number [facility] [address] [place] [phone] * CBC W/O DIFFERENTIAL (06/28/2024 4:32 AM HUMAN RESOURCES TRAINER) Only the most recent of12 resultswithin the time period is included. WBC 6.4 4.0 - 10.7 x10E9/L 06/28/2024 4:47 AM [facility] RBC Count 4.01 3.90 - 5.20 x10E12/L 06/28/2024 4:47 AM [facility] Hemoglobin 12.8 11.9 - 15.8 g/dL 06/28/2024 4:47 AM [facility] Hematocrit 38.4 34.8 - 46.1 % 06/28/2024 4:47 AM [facility] MCV 95.8 80.0 - 98.0 fL 06/28/2024 4:47 AM [facility] MCH 31.9 26.7 - 33.6 pg 06/28/2024 4:47 AM [facility] MCHC 33.3 31.7 - 36.3 g/dL 06/28/2024 4:47 AM [facility] RDW-CV 12.1 11.3 - 14.8 % 06/28/2024 4:47 AM [facility] Platelet Count 226 150 - 420 x10E9/L 06/28/2024 4:47 AM [facility] MPV 8.5 7.8 - 11.4 fL 06/28/2024 4:47 AM [facility] Blood BLOOD SPECIMEN / Unknown Venipuncture / Unknown 06/28/2024 4:32 AM HUMAN RESOURCES TRAINER 06/28/2024 4:44 AM [facility] Chandan Bae MD LAB - HEMATOLOGY ORD ERABLES [facility] [address] [place], [place] [id number] * (ABNORMAL) RENAL FUNCTION PANEL (06/28/2024 4:32 AM HUMAN RESOURCES TRAINER) Only the most recent of12 resultswithin the time period is included. Glucose 188(H) 70 - 99 mg/dL 06/28/2024 5:07 AM [facility] Sodium 133(L) 136 - 145 mmol/L 06/28/2024 5:07 AM [facility] Potassium 4.5 3.5 - 5.1 mmol/L 06/28/2024 5:07 AM [facility] Chloride 103 98 - 107 mmol/L 06/28/2024 5:07 AM [facility] CO2 23 22 - 29 mmol/L 06/28/2024 5:07 AM [facility] Calcium 8.8 8.4 - 10.4 mg/dL 06/28/2024 5:07 AM [facility] Anion Gap 7 6 - 16 mmol/L 06/28/2024 5:07 AM [facility] BUN 15 7 - 26 mg/dL 06/28/2024 5:07 AM [facility] Creatinine 0.64 0.57 - 1.11 mg/dL 06/28/2024 5:07 AM [facility] Albumin 3.8 3.4 - 5.0 gm/dL 06/28/2024 5:07 AM [facility] Phosphorus 3.0 2.5 - 4.5 mg/dL 06/28/2024 5:07 AM [facility] eGFR by CKD-EPI >90 >=90 mL/min/1.7 3 m2 06/28/2024 5:07 AM [facility] Blood BLOOD SPECIMEN / Unknown Venipuncture / Unknown 06/28/2024 4:32 AM HUMAN RESOURCES TRAINER 06/28/2024 4:44 AM HUMAN RESOURCES TRAINER Chandan Bae MD LAB - CHEMISTRY RK [facility] Organization Address City/State/[facility] Co de Phone Number [facility] [address] [place] [address] * CK BLOOD (06/28/2024 4:32 AM [facility]) Only the most recent of4 resultswithin the time period is included. CK 145 29 - 168 U/L 06/28/2024 6:46 AM [facility] Blood BLOOD SPECIMEN / Unknown Venipuncture / Unknown 06/28/2024 4:32 AM HUMAN RESOURCES TRAINER 06/28/2024 4:44 AM HUMAN RESOURCES TRAINER Case Monterroso MD LAB - [employer] PORTAL DEVELOPER RY ORDERABLES [facility] [address] [place] [address] * (ABNORMAL) VANCOMYCIN LEVEL PEAK (06/28/2024 4:32 AM HUMAN RESOURCES TRAINER) Vancomycin Peak 13.6(L) 25.0 - 40.0 ug/mL 06/28/2024 5:06 AM HUMAN RESOURCES TRAINER [facility] Blood BLOOD SPECIMEN / Unknown Venipuncture / Unknown 06/28/2024 4:32 AM HUMAN RESOURCES TRAINER 06/28/2024 4:44 AM HUMAN RESOURCES TRAINER Chandan Bae MD LAB - CHEMISTRY ORDE JANELLE Performing Organization Address City/[facility]/ZIP Co de Phone Number [facility] [address] [place] [address] * XR CHEST 1VW PORTABLE (06/26/2024 8:37 PM HUMAN RESOURCES TRAINER) Only the most recent of2 resultswithin the time period is included. Anatomical Region Laterality Modality Chest Radiographic Rosemary ging 06/27/2024 9:07 AM HUMAN RESOURCES TRAINER Impressions 06/27/2024 9:08 AM HUMAN RESOURCES TRAINER IMPRESSION: As above. > Interpreting Provider: Kody Rivera MD on 06/27/2024 9:08 AM Narrative 06/27/2024 9:08 AM HUMAN RESOURCES TRAINER PROCEDURE: XR CHEST 1VW PORTABLE DATE/TIME OF [...] technique. Procedure Note Kody Rivera MD - 01/27/2025 PROCEDURE: XR CHEST 1VW PORTABLE DATE/TIME OF [...] METABOLIC PANEL (CALCIUM TOTAL) (06/26/2024 4:30 AM HUMAN RESOURCES TRAINER) Glucose 122(H) 70 - 99 mg/dL 06/26/2024 5:58 AM [facility] Sodium 133(L) 136 - 145 mmol/L 06/26/2024 5:58 AM [facility] Potassium 4.2 3.5 - 5.1 mmol/L 06/26/2024 5:58 AM [facility] Chloride 100 98 - 107 mmol/L 06/26/2024 5:58 AM [facility] CO2 25 22 - 29 mmol/L 06/26/2024 5:58 AM [facility] Calcium 9.0 8.4 - 10.4 mg/dL 06/26/2024 5:58 AM [facility] Anion Gap 8 6 - 16 mmol/L 06/26/2024 5:58 AM [facility] BUN 12 7 - 26 mg/dL 06/26/2024 5:58 AM [facility] Creatinine 0.64 0.57 - 1.11 mg/dL 06/26/2024 5:58 AM [facility] eGFR by CKD-EPI >90 >=90 mL/min/1.7 3 m2 06/26/2024 5:58 AM [facility] Blood BLOOD SPECIMEN / Unknown Lab Venipuncture / Unknown 06/26/2024 4:30 AM HUMAN RESOURCES TRAINER 06/26/2024 5:17 AM HUMAN RESOURCES TRAINER Chris Woodall MD LAB - CHEMISTRY RK LUIS [facility] [address] [place] [address] * (ABNORMAL) URINALYSIS REFLEX MICROSCOPIC REFLEX CULTURE (06/26/2024 2:51 AM HUMAN RESOURCES TRAINER) Only the most recent of2 resultswithin the time period is included. Color UA Yellow Yellow, Straw 06/26/2024 3:30 AM [facility] Clarity UA Clear Clear 06/26/2024 3:30 AM [facility] Glucose UA Normal Normal 06/26/2024 3:30 AM [facility] Bilirubin UA Negative Negative 06/26/2024 3:30 AM [facility] Ketone UA Negative Negative 06/26/2024 3:30 AM [facility] Specific [place] UA 1.033(H) 1.005 - 1.030 06/26/2024 3:30 AM [facility] Blood UA 3+(A) Negative 06/26/2024 3:30 AM [facility] pH UA 7.0 5.0 - 9.0 pH 06/26/2024 3:30 AM [facility] Protein UA Trace(A) Negative 06/26/2024 3:30 AM [facility] Urobilinogen UA Normal Normal mg/dL 06/26/2024 3:30 AM [facility] Nitrite UA Negative Negative 06/26/2024 3:30 AM [facility] Leukocyte UA 75 JUAN/uL(A) Negative 06/26/2024 3:30 AM [facility] RBC UA >100(A) 0 - 5 # /hpf 06/26/2024 3:30 AM [facility] WBC UA 6-10(A) 0 - 5 # /hpf 06/26/2024 3:30 AM [facility] Bacteria UA None Seen None Seen 06/26/2024 3:30 AM [facility] Squamous Epithelial Cells None Seen 0 - 5 /hpf 06/26/2024 3:30 AM [facility] Urine SUPRAPUBIC URINE SPECIMEN / Unknown Collection / Unknown 06/26/2024 2:51 AM HUMAN RESOURCES TRAINER 06/26/2024 3:17 AM HUMAN RESOURCES TRAINER [facility] - 06/26/2024 3:30 AM HUMAN RESOURCES TRAINER Chris Woodall MD LAB - URINALYSIS ORD ERABLES [facility] [address] [place] [address] * CBC W AUTO DIFFERENTIAL (06/25/2024 9:56 PM HUMAN RESOURCES TRAINER) Only the most recent of3 resultswithin the time period is included. WBC 8.6 4.0 - 10.7 x10E9/L 06/25/2024 10:07 PM [facility] RBC Count 4.20 3.90 - 5.20 x10E12/L 06/25/2024 10:07 PM [facility] Hemoglobin 13.3 11.9 - 15.8 g/dL 06/25/2024 10:07 PM [facility] Hematocrit 40.4 34.8 - 46.1 % 06/25/2024 10:07 PM [facility] MCV 96.2 80.0 - 98.0 fL 06/25/2024 10:07 PM [facility] MCH 31.7 26.7 - 33.6 pg 06/25/2024 10:07 PM [facility] MCHC 32.9 31.7 - 36.3 g/dL 06/25/2024 10:07 PM [facility] RDW-CV 12.3 11.3 - 14.8 % 06/25/2024 10:07 PM [facility] Platelet Count 224 150 - 420 x10E9/L 06/25/2024 10:07 PM [facility] MPV 8.6 7.8 - 11.4 fL 06/25/2024 10:07 PM [facility] Neutrophil % 69.8 41.0 - 74.0 % 06/25/2024 10:07 PM [facility] Lymphocyte % 21.5 17.0 - 47.0 % 06/25/2024 10:07 PM [facility] Monocyte % 5.9 3.0 - 11.0 % 06/25/2024 10:07 PM [facility] Eosinophil % 2.3 0.0 - 7.0 % 06/25/2024 10:07 PM [facility] Basophil % 0.2 0.0 - 1.6 % 06/25/2024 10:07 PM [facility] Immature Granulocytes % 0.3 0.0 - 1.0 % 06/25/2024 10:07 PM [facility] Neutrophil Absolute 6.01 1.60 - 7.50 x10E9/L 06/25/2024 10:07 PM [facility] Lymphocyte Absolute 1.85 1.00 - 4.40 x10E9/L 06/25/2024 10:07 PM [facility] Monocyte Absolute 0.51 0.15 - 1.00 x10E9/L 06/25/2024 10:07 PM [facility] Eosinophil Absolute 0.20 0.00 - 0.60 x10E9/L 06/25/2024 10:07 PM [facility] Basophil Absolute 0.02 0.00 - 0.13 x10E9/L 06/25/2024 10:07 PM [facility] Blood BLOOD SPECIMEN / Unknown Lab Venipuncture / Unknown 06/25/2024 9:56 PM HUMAN RESOURCES TRAINER 06/25/2024 10:03 PM [facility] Chris Woodall MD LAB - HEMATOLOGY ORD ERABLES Performing Organization Address City/State/[facility] Co de Phone Number [facility] [address] [place] [address] * (ABNORMAL) COMPREHENSIVE METABOLIC PANEL (06/25/2024 9:56 PM [facility]) Only the most recent of2 resultswithin the time period is included. [facility] Signature Glucose 163(H) 70 - 99 mg/dL 06/25/2024 10:26 PM [facility] Sodium 133(L) 136 - 145 mmol/L 06/25/2024 10:26 PM [facility] Potassium 4.2 3.5 - 5.1 mmol/L 06/25/2024 10:26 PM [facility] Chloride 101 98 - 107 mmol/L 06/25/2024 10:26 PM [facility] CO2 25 22 - 29 mmol/L 06/25/2024 10:26 PM [facility] Calcium 9.3 8.4 - 10.4 mg/dL 06/25/2024 10:26 PM [facility] Anion Gap 7 6 - 16 mmol/L 06/25/2024 10:26 PM [facility] BUN 12 7 - 26 mg/dL 06/25/2024 10:26 PM [facility] Creatinine 0.73 0.57 - 1.11 mg/dL 06/25/2024 10:26 PM [facility] Alkaline Phosphatase 53 40 - 150 U/L 06/25/2024 10:26 PM [facility] ALT 22 0 - 55 U/L 06/25/2024 10:26 PM [facility] AST 19 5 - 34 U/L 06/25/2024 10:26 PM [facility] Protein Total 7.1 6.4 - 8.3 gm/dL 06/25/2024 10:26 PM [facility] Albumin 3.9 3.4 - 5.0 gm/dL 06/25/2024 10:26 PM [facility] Bilirubin Total 0.3 0.2 - 1.2 mg/dL 06/25/2024 10:26 PM [facility] eGFR by CKD-EPI 89(L) >=90 mL/min/1.7 3 m2 06/25/2024 10:26 PM [facility] Blood BLOOD SPECIMEN / Unknown Lab Venipuncture / Unknown 06/25/2024 9:56 PM HUMAN RESOURCES TRAINER 06/25/2024 10:03 PM [facility] Chris Woodall MD LAB - CHEMISTRY RK LUIS [facility] Organization Address City/State/ZIP Co de Phone Number [facility] [address] [place], [place] [id number] * CULTURE BLOOD (06/25/2024 9:24 PM [facility]) Only the most recent of4 resultswithin the time period is included. Culture No growth day 5 SHIMA 07/01/2024 2:01 AM [facility] Blood PERIPHERAL BLOOD / Unknown Lab Venipuncture / Unknown 06/25/2024 9:24 PM HUMAN RESOURCES TRAINER 06/25/2024 9:38 PM HUMAN RESOURCES TRAINER Chris Woodall MD LAB - MICROBIOLOGY O RDERABLES [facility] [address] [place] [address], [facility] [phone] * LACTIC ACID BLOOD REFLEX TO REPEAT (06/25/2024 9:18 PM HUMAN RESOURCES TRAINER) Only the most recent of2 resultswithin the time period is included. Lactic Acid 1.0 <=2.0 mmol/L 06/25/2024 10:26 PM HUMAN RESOURCES TRAINER [facility] Blood BLOOD SPECIMEN / Unknown Lab Venipuncture / Unknown 06/25/2024 9:18 PM HUMAN RESOURCES TRAINER 06/25/2024 10:02 PM HUMAN RESOURCES TRAINER Chris Woodall MD LAB - CHEMISTRY RK LUIS Performing Organization Address City/[facility]/ZIP Co de Phone Number [facility] [address] [place] [address] * MAGNESIUM BLOOD (06/01/2024 3:07 AM HUMAN RESOURCES TRAINER) Only the most recent of10 resultswithin the time period is included. Magnesium 1.6 1.6 - 2.6 mg/dL 06/01/2024 4:27 AM HUMAN RESOURCES TRAINER [facility] Blood BLOOD SPECIMEN / Unknown Lab Venipuncture / Unknown 06/01/2024 3:07 AM HUMAN RESOURCES TRAINER 06/01/2024 4:00 AM HUMAN RESOURCES TRAINER Herbie Beauchamp MD LAB - CHEMISTRY RK LUIS [address] [address], [facility] [phone] * IR Picc Line Insert (05/24/2024 11:57 AM HUMAN RESOURCES TRAINER) Anatomical Region Laterality Modality Chest, Upper Extremity Other Narrative 05/24/2024 11:56 AM HUMAN RESOURCES TRAINER Herbie Briscoe RN 05/24/2024 11:57 AM Department of Interventional Radiology Procedure Note: PICC line placement History: May Myers is a 68 year old female with a significant past medical history of T2DM, HTN, PVD, COPD, CARYN, hypothyroidism, 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 Indication: IV antibiotic therapy Supervisor Cutting Department: Herbie Briscoe RN [place]- Procedures: 1. Limited extremity ultrasound to assess vascular patency 2. Ultrasound guided access of the Right basilic vein. 3. Placement of peripherally inserted central line with magnetic tracking and ECG tip positioning system ([id number]). Anesthesia: Local anesthesia with 4mL of 1% [...] magnetic tracking and ECG tip positioning system (K[place]nachey), The peel-away sheath was removed, and the [...] procedure was performed by Herbie Briscoe RN [place]-. The final image was reviewed by , Interventional Radiology Attending- David Horner MD The catheter can be used now. Herbie Beauchamp MD IR ORDERABLES * CT US Guided Needle Placement (05/23/2024 11:19 AM HUMAN RESOURCES TRAINER) Anatomical Region Laterality Modality Chest, Abdomen Computed Tomogra phy 05/23/2024 11:3 0 AM HUMAN RESOURCES TRAINER Impressions 05/23/2024 12:16 PM HUMAN RESOURCES TRAINER Impression: Successful ultrasound-guided aspiration of suprapubic abdominal [...] evaluation, please review the evaluation forms in EPIC. For details on monitored clinical parameters during the intra-service sedation time, please review the procedure nurse documentation in EPIC. > Interpreting Provider: Mary Huynh MD on 05/23/2024 12:16 PM Narrative 05/23/2024 12:16 PM HUMAN RESOURCES TRAINER History: 68-year-old female with suprapubic fluid collection. [...] was provided with 1% Lidocaine. A 5 [place]ian coaxial needle system was advanced in stages [...] was provided with 1% Lidocaine. A 5 [place] coaxial needle system was advanced in stagesunder [...] the procedure well [facility]. There were no [...] evaluation, please review the evaluation forms in [facility]. Fordetails on monitored clinical parameters during the intra-service sedation time, please review the procedure nurse documentation in [facility]. > Interpreting Provider: Mary Huynh MD on 05/23/2024 12:[address] ORDERABLES * CULTURE FUNGUS OTHER+FUNGUS SMEAR (05/23/2024 11:15 AM HUMAN RESOURCES TRAINER) Only the most recent of2 resultswithin the time period is included. Culture No fungus isolated SHIMA 06/20/2024 6:40 AM HUMAN RESOURCES TRAINER [facility] MICROBIOLOGY Fungus Stain No yeast or hyphae seen 06/20/2024 6:40 AM HUMAN RESOURCES TRAINER [facility] MICROBIOLOGY Microbiology BODY FLUID SPECIMEN / Unknown Collection / Unknown 05/23/2024 11:15 AM HUMAN RESOURCES TRAINER 05/23/2024 11:44 AM HUMAN RESOURCES TRAINER Herbie Beauchamp MD LAB - MICROBIOLOGY O RDERABLES [facility] MICROBIOLOGY [address] [place] [address], [facility] [phone] * CYTOLOGY NON-TRANSPORT NURSE PANEL (STL) (05/23/2024 11:15 AM HUMAN RESOURCES TRAINER) Case Report Medical Cytology Report Case: [id number] Authorizing Provider: Hebrie Beauchamp MD Collected: 05/23/2024 11:15 AM Ordering Location: [facility] SHORT STAY UNIT Received: 05/23/2024 01:35 PM Pathologist: Benjamin Arechiga MD Specimen: Body Fluid , Suprapubic abscess 05/24/2024 1:19 PM [facility] Specimen Adequacy Adequate cellularity for evaluation. 05/24/2024 1:19 PM [facility] Final Diagnosis Body fluid, supra pubic abscess, aspiration: - Heavy acute inflammation and blood - No malignancy identified 05/24/2024 1:19 PM [facility] Clinical History The patient is a 68-year-old female who underwent aspiration of a suprapubic abscess 05/24/2024 1:19 PM [facility] PATH[facility] LAB Gross Description 1 pap stained cytospin and 1 cell block from 2cc of red, cloudy fluid 05/24/2024 1:19 PM [facility] PATH[facility] LAB Microscopic Description Microscopic examination substantiates the final diagnosis. 05/24/2024 1:19 PM [facility] PATHOLOGY LAB Pathologist Location at [facility] 05/24/2024 1:19 PM [facility] LAB Disclaimer The performance characteristics of all immunohistochemical and indirect immunofluorescence stains (if any) cited in this report were determined by the Histopathology Laboratory of [facility]. Some of these tests rely on the use of analyte-specific reagents and are subject to specific labeling requirements by the [place] Food and Drug Administration. Such tests were developed by the Histology Laboratory of [facility] and have not been cleared or [...] the attending (teaching) pathologist. 05/24/2024 1:19 PM [facility] PATHOLOGY LAB Embedded Images 05/24/2024 1:19 PM [facility] PATHOLOGY LAB Pathology/Cytolo gy BODY FLUID SPECIMEN / Unknown Collection / Unknown 05/23/2024 11:15 AM HUMAN RESOURCES TRAINER 05/23/2024 1:35 PM HUMAN RESOURCES TRAINER Herbie Beauchamp MD LAB - PATHOLOGY/CYTO LOGY ORDERABLES Performing Organization Address City/[facility]/ZIP Co de Phone Number [facility] PATHOLOGY LAB [address] [phone] * LAB MISC TEST (NOT BLOOD) (05/23/2024 11:15 AM HUMAN RESOURCES TRAINER) Test Name CR 06/12/2024 11:09 AM HUMAN RESOURCES TRAINER [facility] REF LAB NON INTERF Test Result See Scanned Report 06/12/2024 11:09 AM HUMAN RESOURCES TRAINER [facility] REF LAB NON INTERF Comment Ref Lab ALARCON 06/12/2024 11:09 AM HUMAN RESOURCES TRAINER [facility] REF LAB NON INTERF Other SPECIMEN FROM [facility] / Unknown Collection / Unknown 05/23/2024 11:15 AM HUMAN RESOURCES TRAINER 05/23/2024 12:36 PM HUMAN RESOURCES TRAINER Herbie Beauchamp MD LAB - BODY FLUID ORD ERABLES [facility] REF LAB NON INTERF [address] [facility] [place] [id number], [place] [phone] * (ABNORMAL) CULTURE FLUID+GRAM STAIN (05/23/2024 11:15 AM HUMAN RESOURCES TRAINER) Culture Light Staphylococcus epidermidis(AA) SHIMA 05/27/2024 12:01 PM [facility] Culture Light Staphylococcus lugdunensis(AA) SHIMA 05/27/2024 12:01 PM [facility] Gram Stain Light Polymorphonuclear cells 05/27/2024 12:01 PM [facility] Gram Stain No organisms seen 024 12:01 PM [facility] Fluid BODY FLUID SPECIMEN / Unknown Collection / Unknown 05/23/2024 11:15 AM HUMAN RESOURCES TRAINER 05/23/2024 11:44 AM HUMAN RESOURCES TRAINER Narrative Organism Antibiotic Method Susceptibility Staphylococcus epidermidis [...] Beauchamp MD LAB - MICROBIOLOGY O RDERABLES [facility] [address] [place] [address], [facility] [phone] * CULTURE AFB+SMEAR (05/23/2024 11:15 AM HUMAN RESOURCES TRAINER) Culture No acid-fast bacillus isolated 07/04/2024 8:25 AM HUMAN RESOURCES TRAINER [facility] MICROBIOLOGY AFB Smear No acid-fast bacilli seen 07/04/2024 8:25 AM HUMAN RESOURCES TRAINER [facility] MICROBIOLOGY Microbiology BODY FLUID SPECIMEN / Unknown Collection / Unknown 05/23/2024 11:15 AM HUMAN RESOURCES TRAINER 05/23/2024 12:23 PM HUMAN RESOURCES TRAINER Herbie Beauchamp MD LAB - MICROBIOLOGY O RDVERONICABLES Performing Organization Address City/[facility]/ZIP Co de Phone Number [facility] MICROBIOLOGY [address] [place] [address], [facility] [phone] * CULTURE ANAEROBE (05/23/2024 11:15 AM HUMAN RESOURCES TRAINER) Culture No anaerobic organisms isolated SHIMA 05/29/2024 8:29 AM HUMAN RESOURCES TRAINER [facility] MICROBIOLOGY Microbiology BODY FLUID SPECIMEN / Unknown Collection / Unknown 05/23/2024 11:15 AM HUMAN RESOURCES TRAINER 05/23/2024 11:44 AM HUMAN RESOURCES TRAINER Herbie Beauchamp MD LAB - MICROBIOLOGY O RDTYLER Performing Organization Address [facility] de Phone Number [facility] MICROBIOLOGY [address] [place] [address], [facility] [phone] * CT Abdomen Pelvis W Contrast (05/22/2024 9:30 AM HUMAN RESOURCES TRAINER) Anatomical Region Laterality Modality Abdomen, Pelvis Computed Tomogra phy 05/22/2024 9:44 AM HUMAN RESOURCES TRAINER Impressions 05/22/2024 1:10 PM HUMAN RESOURCES TRAINER Impression 1. Superior to the suprapubic catheter [...] clinically queried. Report dictated by Jeanmarie Jasso MD(radiology clerk). I, Bina Reynolds MD have personally reviewed and interpreted this examination/study. > Interpreting Provider: Bina Reynolds MD on 05/22/2024 1:10 PM Narrative 05/22/2024 1:10 PM HUMAN RESOURCES TRAINER PROCEDURE: CT ABDOMEN PELVIS W CONTRAST, DATE/TIME OF EXAM: 05/22/2024 9:31 AM, LOCATION [facility] INDICATION: A49.9: Infection due to bacteria resistant [...] DATE/TIME OF EXAM: 05/22/2024 9:31 AM, LOCATION [facility] INDICATION: A49.9: Infection due to bacteria resistant [...] 1.5 cm hypoattenuating lesion noted at hepatic uuisikq1V. Other subcentimeter hypoattenuating lesions are too small [...] as clinicallyqueried. Report dictated by Jeanmarie Jasso MD(radiology clerk). I, Bina Reynolds MD have personally reviewed and interpreted this examination/study. > Interpreting Provider: Bina Reynolds MD on 05/22/2024 1:10 PM Herbie Beauchamp MD CT ORDERABLES * (ABNORMAL) URINE MICROSCOPIC ONLY REFLEX TO CULTURE (05/21/2024 1:41 PM HUMAN RESOURCES TRAINER) Reflex Status Culture to follow 05/21/2024 2:14 PM HUMAN RESOURCES TRAINER [facility] RBC UA 11-20(A) None Seen, 0-2, 3-5 /HPF 05/21/2024 2:14 PM HUMAN RESOURCES TRAINER [facility] WBC UA >100(A) None Seen, 0-5 /HPF 05/21/2024 2:14 PM HUMAN RESOURCES TRAINER [facility] Bacteria UA 3+(A) None /HPF 05/21/2024 2:14 PM HUMAN RESOURCES TRAINER [facility] Squamous Epithelial Cells UA 0-2 None Seen, 0-2, 3-5 /HPF 05/21/2024 2:14 PM HUMAN RESOURCES TRAINER [facility] Mucus UA 1+ /LPF 05/21/2024 2:14 PM [facility] Calcium Oxalate UA Occasional( A) None /HPF 05/21/2024 2:14 PM [facility] Urine URINE SPECIMEN OBTAINED BY CLEAN CATCH PROCEDURE / Unknown Collection / Unknown 05/21/2024 1:41 PM HUMAN RESOURCES TRAINER 05/21/2024 1:52 PM HUMAN RESOURCES TRAINER Narrative [facility] - 05/21/2024 2:14 PM HUMAN RESOURCES TRAINER Urine sample less that 1 mL. Microscopic exam performed on unconcentrated sample. Simi Thomas GOLF SALES ASSOCIATE-GRAIN TRIMMER LAB - URINAL YSIS ORDERABLES Performing Organization Address [facility] Co de Phone Number [facility] [address] [place] [address], [facility] [phone] * PT-INR [facility] (05/21/2024 12:58 PM HUMAN RESOURCES TRAINER) Only the most recent of2 resultswithin the time period is included. PT 12.2 12.1 - 14.8 Seconds 05/21/2024 1:36 PM HUMAN RESOURCES TRAINER [facility] INR 0.9 See Comment 05/21/2024 1:36 PM [facility] Comment:The suggested therap eutic range for standard coumadin (warfarin) therapy is an INR of 2.0-3.0. For high-risk patients (Mechanical Mitral Valve Prosthesis, etc.), the suggested prophylactic therapeutic range is an INR of 2.5-3.5. Blood BLOOD SPECIMEN / Unknown Venipuncture / Unknown 05/21/2024 12:58 PM HUMAN RESOURCES TRAINER 05/21/2024 1:15 PM HUMAN RESOURCES TRAINER Kishore Godinez MD LAB - COAGULATION OR DERABLES Performing Organization Address [facility]/ZIP Co de Phone Number [facility] [address] [place] [address], [facility] [phone] * PROC CATHETER CHANGE/INSERTION (05/17/2024 12:50 PM HUMAN RESOURCES TRAINER) Narrative Costa Vicky DAVID Leonardo - 05/17/2024 12:50 PM HUMAN RESOURCES TRAINER Vicky CostaDAVID 05/18/2024 2:01 PM Patient arrived to clinic [...] weeks for SP catheter change. 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 TRIMMER PROCEDURE/MINOR SURGICAL ORDERABLES * CT Perc Drainage Cath Exchange (05/17/2024 8:37 AM HUMAN RESOURCES TRAINER) Anatomical Region Laterality Modality Abdomen Computed Tomogra phy 05/17/2024 4:37 PM HUMAN RESOURCES TRAINER Impressions 05/17/2024 4:41 PM HUMAN RESOURCES TRAINER Impression: CT-guided tube check through the existing [...] 05/17/2024 4:41 PM Narrative 05/17/2024 4:41 PM HUMAN RESOURCES TRAINER PROCEDURE: CT PERC DRAINAGE CATH EXCHANGE DATE/TIME OF EXAM: 05/17/2024 8:42 AM Indication: N30.80: Abscess of bladder History: 68-year-old female with anterior abdominal wall abscess status post drain placement. Operators: 1.Dr. Matias Saleh, Attending Physician Anesthesia: None Procedure: 1.Limited non-contrast CT of the abdomen. 2.CT-guided abscessogram/tube check through the existing 10 [place]ian ReSolve pigtail drainage catheter in the anterior [...] was performed which showed the existing 10 [place]ian pigtail drainage catheter in the anterior abdominal [...] abdomenwas performed which showed the existing 10 [place]ian pigtail drainage catheterin the anterior abdominal wall [...] the procedure well [facility]. There were no [...] POCT - Ketones UA POCT - Specific [place] UA 1.015 Blood Urine POCT 3+ pH UA 6.5 Protein UA 1+ Urobilinogen UA - Nitrite UA + WBC UA 2+ Urine URINE / Unknown 05/17/2024 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 TRIMMER LAB - POINT OF CARE ORDERABLES * CT Drain W Cath Placement (05/06/2024 1:18 PM HUMAN RESOURCES TRAINER) Anatomical Region Laterality Modality Abdomen Computed Tomogra phy 05/06/2024 2:15 PM HUMAN RESOURCES TRAINER Impressions 05/12/2024 9:50 AM HUMAN RESOURCES TRAINER Impression: Ultrasound-guided placement of a 10 [place]ian Resolve pigtail drainage catheter in lower anterior [...] evaluation, please review the evaluation forms in [facility]. For details on monitored clinical parameters during the intra-service sedation time, please review the procedure nurse documentation in [facility]. > Dictated by Deric Rossi MD (Student Support Counselor) 05/06/2024 2:15 PM INarda MD have personally reviewed and interpreted this examination/study. > Interpreting Provider: Narda Pierce MD on 05/12/2024 9:50 AM Narrative 05/12/2024 9:50 AM HUMAN RESOURCES TRAINER History: 68-year-old female. Anterior abdominal wall fluid collection. Operators: 1.Attending - Narda Pierce 2.Resident - Deric Rossi Anesthesia: 1.Local anesthesia - 10 mL of 1% lidocaine 2.Intravenous conscious sedation - Versed 1 mg and Fentanyl 50 mcg Procedure: 1.Ultrasound-guided placement of a 10 Namibian Resolve pigtail drainage catheter in the lower [...] was provided with 1% Lidocaine. A 5 Namibian co-axial needle was advanced in stages under ultrasound guidance. Upon aspiration of fluid, the outer-sheath was advanced within the collection. A 0.035 inch guidewire was looped within the collection, and following series of dilatation/exchanges, a 10 Namibian Resolve pigtail drainage catheter was advanced into [...] mcg Procedure: 1.Ultrasound-guided placement of a 10 [place] Resolve pigtail drainage catheter in the lower [...] was provided with 1% Lidocaine. A 5 Namibian co-axial needle was advancedin stages under ultrasound guidance. Upon aspiration of fluid, the outer-sheath was advanced within the collection. A 0.035 inch guidewirewas looped within the collection, and following series ofdilatation/exchanges, a 10 Namibian Resolve pigtail drainage catheter was advanced into [...] procedure. Impression: Ultrasound-guided placement of a 10 [place]ian Resolve pigtail drainage catheter in lower anterior [...] evaluation, please review the evaluation forms in [facility]. For details on monitored clinical parameters during the intra-service sedation time, please review the procedure nurse documentation in [facility]. > Dictated by Deric Rossi MD (Student Support Counselor) 05/06/2024 2:15 PM Narda Sandhu MD have personally reviewed and interpreted this examination/study. > Interpreting Provider: Narda Pierce MD on 05/12/2024 9:[address] AM [address] MD [address] ORDERABLES * CREATININE BODY FLUID (05/06/2024 1:13 PM HUMAN RESOURCES TRAINER) Creatinine Fluid 0.40 Not Established For Fluids mg/dL 05/06/2024 1:54 PM [facility] Fluid Type Other 05/06/2024 1:54 PM [facility] Other Fluid Source: subQ fluid collection 05/06/2024 1:54 PM [facility] Fluid MISCELLANEOUS SAMPLES / Unknown Collection / Unknown 05/06/2024 1:13 PM HUMAN RESOURCES TRAINER 05/06/2024 1:16 PM HUMAN RESOURCES TRAINER Narrative [facility] - 05/06/2024 1:54 PM HUMAN RESOURCES TRAINER The laboratory has not established the reference interval and analytic performance for this body fluid test. The test result must be integrated into the clinical context for interpretation. Body fluid source not validated, interpret results with caution. Ulices Vides MD LAB - BODY FLUID ORD ERABLES [facility] [address] [place] [address], [facility] [phone] * CULTURE WOUND+GRAM STAIN (05/06/2024 12:50 PM HUMAN RESOURCES TRAINER) Culture No growth SHIMA 05/08/2024 5:56 PM HUMAN RESOURCES TRAINER [facility] MICROBIOLOG[facility] Gram Stain Moderate Red blood cells 05/08/2024 5:56 PM HUMAN RESOURCES TRAINER [facility] MICRO[facility]OLOG[facility] Gram Stain Rare Polymorphonuclear cells 05/08/2024 5:56 PM HUMAN RESOURCES TRAINER [facility] MICROBIOLOG[facility] Gram Stain No organisms seen 024 5:56 PM HUMAN RESOURCES TRAINER [facility] MICROBIOLOGY Microbiology CYST TISSUE / Unknown Collection / Unknown 05/06/2024 12:50 PM HUMAN RESOURCES TRAINER 05/06/2024 1:17 PM HUMAN RESOURCES TRAINER Ulices Vides MD LAB - MICROBIOLOGY O RDERABLES [facility] MICROBIOLOGY [address] [place] [address], [facility] [phone] from Last 3 Months Additional Health Concerns [...] 8:23 PM 04/21/2024 9:10 AM Care Teams Back Order Clerk Relationship Specialty Start Date End Date Kaye Martinez MD [place] [id number] [address] PCP - General Emergency Medicine 01/26/24 Jamal Mendez MD [facility] [address] [id number] Internal Medicine 01/26/24
--- OUTSIDE RECORDS SUMMARY | 2024-08-04 11:39 | XMS_ITS | Referral Summary ---
Author Organization [facility] Address [address] [place] [id number] Care Team Providers Care Consultant [employer]. Vice President [employer] (Ex ) Name Role Phone Jeff Cook MD Primary Care Provider [phone] Allergies Active Allergy Reactions Criticality Noted Date Comments Baclofen Hives Medium Reaction: HIVES Codeine Other (See comments) High 02/15/2021 Cyclobenzaprine Syncope High 09/09/2022 Tolterodine Dizziness Low 02/26/2023 Oxybutynin Other (See comments) Low 04/16/2023 Fainting Medications aspirin 81 mg enteric coated tabletIndicatio ns:prevention of thrombosis Take 1 tablet (81 mg total) by mouth every morning Active OneTouch Verio test strips strip USE TO CHECK BLOOD SUGAR ONCE EVERY DAY 3 Active calcium carbonate-vitam in D3 1,250 mg (500 mg elemental)-400 unit tablet Take 1 tablet by mouth every morning Active cholecalciferol (VITAMIN D-3) 50,000 unit capsuleIndicati ons:Vitamin D Deficiency Take 1 capsule (50,000 Units total) by mouth once a week Takes on Fridays Active dicyclomine (BENTYL) 10 mg capsuleIndicati ons:Abdominal Pain with Cramps Take 1 capsule (10 mg total) by mouth 4 (four) times a day before meals and nightly 3 Active gabapentin (NEURONTIN) 600 mg tabletIndicatio ns:Fibromyalgia Take 1 tablet (600 mg total) by mouth 3 (three) times a day 3 Active hydroCHLOROthia zide (HYDRODIURIL) 12.5 mg tablet Take 1 tablet (12.5 mg total) by mouth daily 3 Active levothyroxine (SYNTHROID) 88 mcg tabletIndicatio ns:hypothyroidi sm Take 1 tablet (88 mcg total) by mouth benzene still utility operator before breakfast 3 Active losartan (COZAAR) 100 mg tabletIndicatio ns:hypertension Take 1 tablet (100 mg total) by mouth nightly 3 Active lysine 500 mg tabletIndicatio ns:heart health Take 1 tablet (500 mg total) by mouth 2 (two) times a day Active metFORMIN (GLUCOPHAGE) 500 mg tablet Take 1 tablet (500 mg total) by mouth 2 (two) times a day with meals 0 Active omega-3 fatty acids (LOVAZA) 1 gram capsule Take 2 capsules (2 g total) by mouth 2 (two) times a day 3 Active pramipexole (MIRAPEX) 0.5 mg tabletIndicatio ns:Fibromyalgia Take 1 tablet (0.5 mg total) by mouth 3 (three) times a day 0 Active trospium XR (SANCTURA XR) 60 mg capsule,extende d release 24hrIndications :Urinary frequency,Urgen cy of urination Take 1 capsule (60 mg total) by mouth daily 90 capsule 3 Active Additional Information Patient not taking.Reported on 04/16/2023 estradioL (ESTRACE) 0.01 % (0.1 mg/gram) vaginal creamIndication s:UTI symptoms,Urinar y frequency,Urgen cy of urination,Mixed stress and urge urinary incontinence,Re current UTI Apply one (1) gram in the vagina nightly for two (2) weeks, then two to three (2-3) times per week. 42.5 g 2 3 Active Additional Information Patient not taking.Informant: Self, Reported on 04/16/2023 darifenacin ER (ENABLEX) 15 mg 24 hr tabletIndicatio ns:Urinary incontinence, mixed Take 1 tablet (15 mg total) by mouth daily 30 tablet 11 3 Active Additional Information Patient not taking.Informant: Self, Reported on 04/16/2023 cyclobenzaprine (FLEXERIL) 10 mg tablet Take by mouth nightly Active meloxicam (MOBIC) 15 mg tablet TK 1 T PO QD WAC Act linwood amLODIPine (NORVASC) 5 mg tabletIndicatio ns:hypertension Take 1 tablet (5 mg total) by mouth nightly 0 Active ammonium lactate (LAC-HYDRIN) 12 % lotion Apply 1 Application topically as needed for dry skin 3 Active ipratropium-alb uteroL (Combivent Respimat) 20-100 mcg/actuation inhaler Apply topically 0 Active liothyronine (CYTOMEL) 5 mcg tabletIndicatio ns:hypothyroidi sm Take 1 tablet (5 mcg total) by mouth every morning 0 Active loratadine (CLARITIN) 10 mg tabletIndicatio ns:Allergic Rhinitis Take 1 tablet (10 mg total) by mouth every morning Active mirabegron ER (Myrbetriq) 50 mg tablet extended release 24 hr Take 1 tablet (50 mg total) by mouth daily Active nystatin creamIndication s:Diaper Rash Apply 1 Application topically as needed Active progesterone (PROMETRIUM) 200 mg capsule Medication discontinued 10/09/2020 Active sodium bicarbonate 325 mg tablet Take 1 tablet (325 mg total) by mouth every morning Active triamcinolone (KENALOG) 0.1 % creamIndication s:skin rash Apply 1 g topically as needed for rash Active vitamin E 200 unit capsule Take 1 capsule (200 Units total) by mouth every morning Active ascorbic acid (ascorbic acid with lashawn hips) 500 mg tablet,chewable Take 1 tablet/chew tab (500 mg total) by mouth daily before breakfast Active vit C,U-Ip-vletx-loulou tein-zeaxan 250-90-40-1 mg capsule Take 1 capsule by mouth 2 (two) times a day Active biotin 1 mg capsule Take 1 mg by mouth every morning Active senna-docusate (PERICOLACE) 8.6-50 mg Take 1 tablet by mouth daily Active acetaminophen (TYLENOL) 500 mg tablet Take 2 tablets (1,000 mg total) by mouth every 6 (six) hours as needed for pain Active UNABLE TO FIND Take 1 each by mouth 2 (two) times a day Med Name: PREVAGEN Active oxygenIndicatio ns:Dyspnea Administer 2 L/min into each nostril as needed (When Sleeping) Active docusate sodium (COLACE) 100 mg capsuleIndicati ons:constipatio n Take 1 capsule (100 mg total) by mouth 2 (two) times a day as needed for constipation 60 capsule 3 Active oxyCODONE (ROXICODONE) 5 mg immediate release tabletIndicatio ns:Pain Take 1 tablet (5 mg total) by mouth every 4 (four) hours as needed for pain 10 tablet 3 Active Active Problems Problem Noted Date Diagnosed Date 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 She reports she has had one UTI in the past year and that she cannot remember the last time she had UTI before that. She has been seeing a Movie Actor and failed the pessary (couldn't hold it in). She has also been seeing an outside urologist who suggested surgery. She transferred care here to [facility] to have second opinion. Currently there is plan for bladder sling in January but patient reports debilitating symptoms that affect her daily activities. She reports feeling of things coming down her pelvis frequently and pain while sitting. She has burning of her pelvic region . Reports constant leaking of urine and poor sensation of bladder fullness. She goes to restroom every hour but urine doesn't come out without effort, it hurts a lot (reports screaming out in pain) and even then she is not able to empty completely and while getting out of the commode wets her clothes due to leaking. She had urodynamic studies which confirmed incomplete emptying, bladder outlet obstruction, hypercontractile bladder and bladder distention. PVR was 675cc. The burning has worsened in the last two weeks. No fever, chills, rigors, hematuria, suprapubic pain, flank pain, back pain. Frequency, urgency, leaking, pelvic pain remains the same. Reviewing her previous urine test results, she had urine culture 08/2022: clinically insignificant growth 09/2022: E coli (>100,000) and Proteus (1000 colonies) 11/05/2022: Proteus mirabilis (>100,000) She received macrobid (5 days) and bactrim (3 days) in 09/2022 - and finished these. Per notes, she was prescribed Augmentin by PCP after this. Uncertain duration. Patient doesn't report any change in symptoms with these treatments. Today she is telling me how life has been hard with the ongoing symptoms. She has been prescribed vaginal estrogen by urology and is going to start this, but she is worried about the constant leaking and pelvic pain and doesn't think she can continue until January without intervention. She wanted to know about urinary catheterization and the logistics of that. PLAN - Reviewed susceptibility results and the Proteus is paredes susceptible. Hence prescribed Keflex 500 mg TID for 7 days for complicated UTI. - No history of recurrent UTI per patient other than the episode from last month after urodynamic studies. Patient reports only one UTI prior to this. Hence no current indication of prophylaxis or suppression. Recent culture shows paredes susceptible Proteus. - Her risk factors for urinary infections are related to the anatomical and urodynamic abnormalities. Hence addressing these would be the answer for buttermaker continuous churn treatment. If this is delayed and patient experiences recurrence of UTI episodes there is room to consider medicines like d-mannose, methenamine etc for prevention. - We discussed vaginal hygiene, efforts to prevent drying, sores/pressure ulcers, ongoing use of estrogen, frequent changing of pads/diapers etc. 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 Bladder prolapse, female, acquired 09/09/2022 Urinary frequency 09/09/2022 Urgency of urination 09/09/2022 Immunizations Immunization Administration Dates Next Due Influenza, Unspecified 03/01/2023 Social History Tobacco Use Types Packs/Day Years Used Date Smoking Tobacco: Every Day Cigarettes 1 50.2 Started: 1975 Smokeless Tobacco: Never Tobacco Cessation:Ready to Q uit: Not Asked; Counseling Given: Not Answered AUDIT-C Answer Date Recorded Frequency of Alcohol Consumption Not on file 04/16/2023 Q2: How many drinks containi ng alcohol do you have on a typical day when you are drinking? Patient does not drink Frequency of Binge Drinking Not on file 04/01 Personal Safety Answer Date Recorded Have you ever been in or are you currently in a harmful physical or emotional relationship or is someone making you feel afraid or unsafe? Denies 04/27/2023 Comments No Sex and Gender Information Value Date Recorded Sex Assigned at Not on file Legal Sex Female 6:10 PM AEROGRAPHER Gender Identity Not on file Sexual Orientation Not on file Last Filed Vital Signs Vital Sign Reading Time Taken Comments Blood Pressure 123/57 04/29/2023 2:58 AM AEROGRAPHER Pulse 80 04/29/2023 3:01 AM AEROGRAPHER reche cked Temperature 36.5 C (97.7 F) 04/29/2023 2:58 AM AEROGRAPHER Respiratory Rate 19 04/29/2023 8:14 AM AEROGRAPHER Oxygen Saturation 95% 04/29/2023 2:58 AM AEROGRAPHER Inhaled Oxygen Concentration - - Weight 72.8 kg (160 lb 7.9 oz) 04/16/2023 2:05 P M AEROGRAPHER Height 172.7 cm (5' 8) 04/16/2023 2:05 PM AEROGRAPHER Body Mass Index 24.4 04/16/2023 2:05 PM AEROGRAPHER Plan of Treatment Not on file Medical Devices Implanted Type Area Bilingual Sales Representative Device Identifier Shelf Expiration Date Model / Serial / Lot Changers V[employer]y Upsylon 35.4cm Elongation Profile Lightweight Large Pore Low [id number] - Sn/A - [id number] Implanted:Qty: 1 on 04/27/2023 by Chinmay Bauer MD at [facility] Mesh N/A: Urethra [employer] [id number] 10/29/2025 [id number] / N/A / [id number] Insurance MEDICARE SOLUTIONS IDPA MEDICARE SOLUTIONS IDPA Advance Directives For more information, please contact: [phone] * Full Code (Latest Code Status on File) Date Activated Date Inactivated Comments 04/27/2023 3:58 PM 04/29/2023 3:59 PM Care Teams Consultant [employer]. Vice President [employer] (Ex ) Relationship Specialty Start Date End Date Jeff Cook MD [address] [place] [address] PCP - General Internal Medicine 08/25/22
--- OUTSIDE RECORDS SUMMARY | 2024-08-04 11:39 | XMS_ITS | Encounter Summary ---
Author Organization [facility] Address [address] [place] [address] Care Team Providers Care Superintendent Landfill Operations Name Role Phone Jamal Mendze MD Unavailable [phone] Kaye Martinez MD Primary Care Provider [phone] Reason for Visit * Reason Onset Date Comments Establish Care 08/02/2024 Encounter Details Date Type Department Care Team (Late st Contact Info) Description 08/02/2024 Telephone [facility] - MANAGER APPLICATION DEVELOPMENT [address] [facility] [place] [address] Erica Singleton MD [address] [facility] [address] [place], [place] [id number] Establish Care Social History Tobacco Use Types Packs/Day Years [...] and heating? Not hard at all 05/22/2024 [employer] - Occupational Stress [...] any time in the past 12 m [facility], were you homeless or living in a [facility] (including now)? No 05/22/2024 Sex and Gender Information Value Date Recorded Sex Assigned at Not on file Gender Identity Not on file Sexual Orientation Not on file documented as of this encounter Functional Status Functional Status Response Date of [...] person have difficulty concentrating/remembering/making decisions? No 05/22/2024 documented as of this encounter Miscellaneous Notes * Telephone Encounter - Rakel Andrade - 08/03/2024 8:53 AM CST Spoke with patient. She was treated for endometrial cancer over 40 years ago. Advised her that she can continue to follow-up with her general CERTIFIED CAREGIVER per Dr. Singleton. STICS PROJECT MANAGER * Telephone Encounter - Mallory Norton - 08/02/2024 4:13 PM CST ATTENTION STAFF TAKING THE INITIAL CALL: Please follow the workflow below for all NEW CERTIFIED CAREGIVER/ONC patient calls. [place] the patient. If they are not in system, it is MANDATORY that you register them completely including insurance. Gather and document all the information listed below from the caller Referring provider: Dr. Ulices Vides Diagnosis: Malignant neoplasm of uterus, unspecified site (HCC) Requesting appointment with : Erica Singleton department chairperson at referring provider's office: Who should be contacted for scheduling (ie self, family member, guardian, etc.): Best contact number for scheduling: ()-- Ask for records to be faxed to [phone] that same day. If the referring provider is an [facility] provider and their records are already viewable in [facility], do NOT ask for them to be faxed. Inform the caller you are forwarding this information to the CERTIFIED CAREGIVER/ONC New Patient Intake Coordinatorfor review and someone from the team will be reaching out within one business day of the records being received to help schedule the appointment. If the patient or referring provider asks to speak with someone in the office at the time of the call, first finish gathering and documenting the above required information, tell the caller if no oneanswers they can leave a message and their call should be returned within one business day, and then transfer the call to [phone]. Forward this encounter to the [facility] CERTIFIED CAREGIVER ONC NEW PATIENTS pool ([id number]). ATTENTION CERTIFIED CAREGIVER/ONC NEW PATIENT CLINICAL DOCUMENTATION CONSULTANT or MANAGER APPLICATION DEVELOPMENT OFFICE STAFF SCHEDULING THE NEW PATIENT APPOINTMENT: Please follow the workflow below for all NEW CERTIFIED CAREGIVER/ONC patient scheduling. Reach out to the designated contact center professional listed above at the number provided. Assist in scheduling a NEW patient appointment within 10 days. Gather and document all the information listed below: Date referral was received: How referral was received: Date contacted for scheduling: Scheduled with Appointment date: Appointment time: Appointment location: Records location: If the patient reports a medical issue that needs to be triaged by an RN (i.e. bleeding, pain, etc.), this encounter should be marked high priority and forwarded to the CERTIFIED CAREGIVER/ONC spool worker after scheduling the NEW appointment and an RN will contact the patient. STICS PROJECT MANAGER documented in this encounter Plan of Treatment Upcoming Encounters Date Type Department Care Team (Late st Contact Info) Description 08/05/2024 3:00 PM LOGISTICS PROJECT MANAGER Appointment [facility] - CT Scan [address] [place] [address] Case Monterroso MD [address] [place] [address] 08/16/2024 9:00 AM CDT Office Visit [facility] - MANAGER APPLICATION DEVELOPMENT [address] [facility] [address] [place] [phone] Mary Mac Che, MD [address] [facility] [address] [place] [phone] 09/08/2024 1:00 PM CDT Procedure visit [facility] - Urology [address] [place] [phone] Bette Allred M, DO [address] [facility] [address] [place] [phone] documented as of this encounter Visit Diagnoses Not on filedocumented in this encounter Additional Health Concerns Infection Onset Date Last Indicated Resolved Time MDRO Hx Comment:05/06/24 - urine 06/27/2024 06/27/2024 ESBL Hx Comment:05/06/24 - urine 06/27/2024 06/27/2024 documented as of this encounter Care Teams Superintendent Landfill Operations Relationship Specialty Start Date End Date Kaye Martinez MD [facility] [address] [place] [address] PCP - General Emergency Medicine 01/26/24 Jamal Mendez MD [address] [facility] [address] [place] [phone] Internal Medicine 01/26/24 documented as of this encounter
--- OUTSIDE RECORDS SUMMARY | 2024-08-04 11:39 | XMS_ITS | Patient Health Summary ---
Author Organization [facility] Address [address] [place] [address] Care Team Providers Care Highway Construction Inspector Name Role Phone Jamal Mendez MD Unavailable [phone] Kaye Martinez MD Primary Care Provider [phone] Note from [facility],non-owned Affiliates and Associated Physician Practices is amultiple site organization consisting of ambulatory clinics and hospital sitesin [place], [place], [place] and [place]. This disclosure is being madepursuant to the Care Everywhere program and may not contain all information available regarding this patient. Last updated 18.[facility] Allergies * Baclofen(Urticaria,Other,Unknown) -Medium Criticality * Codeine(Other,Unknown) -High Criticality * Cyclobenzaprine(Other,Unknown) -High Criticality * Tolterodine(Dizziness) -Low Criticality Medications * Be aware that medications may not be up to date on this document. Alwaysverify current medications with the patient. * acetaminophen (Tylenol) 500 MG tablet Take 2 (two) tablets by mouth 3 times daily as needed for Fever or Pain Maximum allowable Acetaminophen amount = 4 Grams (4000 mg) / 24 hours. * albuterol HFA (Proventil; Ventolin; Proair) 108 (90 Base) MCG/ACT inhaler Inhale 2 (two) puffs by mouth every 6 hours as needed for Wheezing, Shortness of Breath or Cough * aspirin (Aspirin) 81 MG chew tablet Take 1 (one) tablet by mouth once daily * vitamin D3 (Cholecalciferol) 25 MCG (1000 UNITS) tablet Take 2 (two) tablets by mouth 2 times daily * loratadine (Claritin) 10 MG tablet Take 1 (one) tablet by mouth once daily * levothyroxine (Synthroid) 88 MCG tablet Take 1 (one) tablet by mouth daily before breakfast * liothyronine (Cytomel) 5 MCG tablet Take 1 (one) tablet by mouth once daily * metFORMIN (Glucophage) 500 MG tablet TAKE 1 TABLET BY MOUTH EVERY MORNING AND 2 TABLETS IN THE AFTERNOON. * montelukast (Singulair) 10 MG tablet Take 1 (one) tablet by mouth at bedtime * fish oil/omega-3 fatty acids (Promega;Cardi-[place] 3) 1000 MG capsule Take 2 (two) capsules by mouth 2 times daily with morning and evening meal * vitamin E (Tocopheryl) 1000 UNIT capsule Take 1 (one) capsule by mouth once daily * pramipexole (Mirapex) 0.5 MG tablet Take 1 (one) tablet by mouth 3 times daily * traMADol (Ultram) 50 MG tablet(Started 04/23/2024) Take 1 (one) tablet by mouth 3 times daily as needed For pain. * Calcium Carb-Cholecalciferol 600-10 MG-MCG(Started 05/12/2024) Take 1 (one) tablet by mouth 2 times daily * Stiolto Respimat 2.5-2.5 MCG/ACT(Started 05/15/2024) INHALE 2 PUFFS BY MOUTH EVERY DAY * [id number] ethyl esters (Lovaza) 1 g capsule Take 2 (two) capsules by mouth 2 times daily * gabapentin (Neurontin) 600 MG tablet(Started 06/22/2024) Take 1 (one) tablet by mouth 3 times daily * amLODIPine (Norvasc) 5 MG tablet Take 1.5 (one and one-half) tablets by mouth once daily * atorvastatin (Lipitor) 20 MG tablet(Started 07/26/2024) Take 1 (one) tablet by mouth at bedtime HOLD atorvastatin while taking daptomycin antibiotic. Resume atorvastatin after daptomycin complete. Ended Medications* nitrofurantoin monohyd macro crystals (Macrobid) 100 MG capsule(Started 07/30/2024)(Discontinued) Take 1 (one) capsule by mouth 2 times daily with morning and evening meal for 2 days Active Problems Problem Noted Date Diagnosed Date [...] and heating? Not hard at all 05/22/2024 [facility] - Occupational Stress [...] time in the past 12 m [facility], were you homeless or living in a usp (including now)? No 05/22/2024 Sex and Gender Information Value Date Recorded Sex Assigned at Not on file Gender Identity Not on file Sexual Orientation Not on file Last Filed Vital Signs Vital Sign Reading Time Taken Comments Blood Pressure 144/69 07/29/2024 9:50 AM COMPATIBILITY TEST ENGINEER Pulse 99 07/29/2024 9:50 AM COMPATIBILITY TEST ENGINEER Temperature 36.1 C (97 F) 07/29/2024 9:50 AM COMPATIBILITY TEST ENGINEER Respiratory Rate 17 06/28/2024 5:17 PM COMPATIBILITY TEST ENGINEER Oxygen Saturation 90% 07/29/2024 9:50 AM COMPATIBILITY TEST ENGINEER Inhaled Oxygen Concentration 21% 05/30/2024 1 :20 AM COMPATIBILITY TEST ENGINEER Weight 74.4 kg (164 lb) 07/29/2024 9:50 AM COMPATIBILITY TEST ENGINEER Height 172.7 cm (5' 8) 07/29/2024 9:50 AM COMPATIBILITY TEST ENGINEER Body Mass Index 24.94 07/29/2024 9:50 AM COMPATIBILITY TEST ENGINEER Procedures * URINALYSIS W/MICROSCOPIC REFLEX TO CULTURE(Performed 07/29/2024) Performed for Urinary incontinence, unspecified type * CULTURE URINE(Performed 07/29/2024) Performed for Urinary incontinence, unspecified type * CULTURE URINE(Performed 07/29/2024) Performed for Dysuria * CULTURE FUNGUS OTHER+FUNGUS SMEAR(Performed 07/29/2024) Performed for Dysuria * DC CYSTOSCOPY,REMV CALCULUS,COMPLIC(Performed 07/14/2024) Performed for Neurogenic bladder * DC INSERT TEMP INDWELL BLADD CATH(Performed 07/14/2024) Performed for Neurogenic bladder * CULTURE URINE(Performed 07/12/2024) Performed for Dysuria * GLUCOSE - POINT OF CARE(Performed 06/28/2024) * VANCOMYCIN LEVEL TROUGH(Performed 06/28/2024) * GLUCOSE - POINT OF CARE(Performed 06/28/2024) * GLUCOSE - POINT OF CARE(Performed 06/28/2024) * VANCOMYCIN LEVEL TROUGH(Performed 06/28/2024) * CK BLOOD(Performed 06/28/2024) * RENAL FUNCTION PANEL(Performed 06/28/2024) * CBC W/O DIFFERENTIAL(Performed 06/28/2024) * VANCOMYCIN LEVEL PEAK(Performed 06/28/2024) * GLUCOSE - POINT OF CARE(Performed 06/27/2024) * GLUCOSE - POINT OF CARE(Performed 06/27/2024) * GLUCOSE - POINT OF CARE(Performed 06/27/2024) * GLUCOSE - POINT OF CARE(Performed 06/27/2024) * RENAL FUNCTION PANEL(Performed 06/27/2024) * CBC W/O DIFFERENTIAL(Performed 06/27/2024) * GLUCOSE - POINT OF CARE(Performed 06/26/2024) * XR CHEST 1VW PORTABLE(Performed 06/26/2024) Performed for Cystitis * GLUCOSE - POINT OF CARE(Performed 06/26/2024) * GLUCOSE - POINT OF CARE(Performed 06/26/2024) * GLUCOSE - POINT OF CARE(Performed 06/26/2024) * BASIC METABOLIC PANEL (CALCIUM TOTAL)(Performed 06/26/2024) * URINALYSIS REFLEX MICROSCOPIC REFLEX CULTURE(Performed 06/26/2024) * CULTURE URINE(Performed 06/26/2024) * CK BLOOD(Performed 06/25/2024) * COMPREHENSIVE METABOLIC PANEL(Performed 06/25/2024) * CBC W AUTO DIFFERENTIAL(Performed 06/25/2024) * PT EVAL AND TREAT(Performed 06/25/2024) * OT EVAL AND TREAT(Performed 06/25/2024) * CULTURE BLOOD(Performed 06/25/2024) * LACTIC ACID BLOOD REFLEX TO REPEAT(Performed 06/25/2024) * CULTURE BLOOD(Performed 06/25/2024) * GLUCOSE - POINT OF CARE(Performed 06/01/2024) * GLUCOSE - POINT OF CARE(Performed 06/01/2024) * GLUCOSE - POINT OF CARE(Performed 06/01/2024) * GLUCOSE - POINT OF CARE(Performed 06/01/2024) * CBC W/O DIFFERENTIAL(Performed 06/01/2024) Performed for Infection due to bacteria resistant to multiple antimicrobial drugs * RENAL FUNCTION PANEL(Performed 06/01/2024) Performed for Infection due to bacteria resistant to multiple antimicrobial drugs * MAGNESIUM BLOOD(Performed 06/01/2024) Performed for Infection due to bacteria resistant to multiple antimicrobial drugs * GLUCOSE - POINT OF CARE(Performed 05/31/2024) * GLUCOSE - POINT OF CARE(Performed 05/31/2024) * GLUCOSE - POINT OF CARE(Performed 05/31/2024) * CK BLOOD(Performed 05/31/2024) * CBC W/O DIFFERENTIAL(Performed 05/31/2024) Performed for Infection due to bacteria resistant to multiple antimicrobial drugs * RENAL FUNCTION PANEL(Performed 05/31/2024) Performed for Infection due to bacteria resistant to multiple antimicrobial drugs * MAGNESIUM BLOOD(Performed 05/31/2024) Performed for Infection due to bacteria resistant to multiple antimicrobial drugs * GLUCOSE - POINT OF CARE(Performed 05/30/2024) * GLUCOSE - POINT OF CARE(Performed 05/30/2024) * GLUCOSE - POINT OF CARE(Performed 05/30/2024) * CBC W/O DIFFERENTIAL(Performed 05/30/2024) Performed for Infection due to bacteria resistant to multiple antimicrobial drugs * RENAL FUNCTION PANEL(Performed 05/30/2024) Performed for Infection due to bacteria resistant to multiple antimicrobial drugs * MAGNESIUM BLOOD(Performed 05/30/2024) Performed for Infection due to bacteria resistant to multiple antimicrobial drugs * GLUCOSE - POINT OF CARE(Performed 05/29/2024) * GLUCOSE - POINT OF CARE(Performed 05/29/2024) * CBC W/O DIFFERENTIAL(Performed 05/29/2024) Performed for Infection due to bacteria resistant to multiple antimicrobial drugs * RENAL FUNCTION PANEL(Performed 05/29/2024) Performed for Infection due to bacteria resistant to multiple antimicrobial drugs * MAGNESIUM BLOOD(Performed 05/29/2024) Performed for Infection due to bacteria resistant to multiple antimicrobial drugs * GLUCOSE - POINT OF CARE(Performed 05/29/2024) * GLUCOSE - POINT OF CARE(Performed 05/28/2024) * GLUCOSE - POINT OF CARE(Performed 05/28/2024) * RENAL FUNCTION PANEL(Performed 05/28/2024) Performed for Infection due to bacteria resistant to multiple antimicrobial drugs * MAGNESIUM BLOOD(Performed 05/28/2024) Performed for Infection due to bacteria resistant to multiple antimicrobial drugs * CBC W/O DIFFERENTIAL(Performed 05/28/2024) Performed for Infection due to bacteria resistant to multiple antimicrobial drugs * GLUCOSE - POINT OF CARE(Performed 05/28/2024) * GLUCOSE - POINT OF CARE(Performed 05/28/2024) * GLUCOSE - POINT OF CARE(Performed 05/27/2024) * GLUCOSE - POINT OF CARE(Performed 05/27/2024) * CBC W/O DIFFERENTIAL(Performed 05/27/2024) Performed for Infection due to bacteria resistant to multiple antimicrobial drugs * RENAL FUNCTION PANEL(Performed 05/27/2024) Performed for Infection due to bacteria resistant to multiple antimicrobial drugs * MAGNESIUM BLOOD(Performed 05/27/2024) Performed for Infection due to bacteria resistant to multiple antimicrobial drugs * GLUCOSE - POINT OF CARE(Performed 05/27/2024) * GLUCOSE - POINT OF CARE(Performed 05/27/2024) * GLUCOSE - POINT OF CARE(Performed 05/26/2024) * GLUCOSE - POINT OF CARE(Performed 05/26/2024) * GLUCOSE - POINT OF CARE(Performed 05/26/2024) * GLUCOSE - POINT OF CARE(Performed 05/26/2024) * CBC W/O DIFFERENTIAL(Performed 05/26/2024) Performed for Infection due to bacteria resistant to multiple antimicrobial drugs * RENAL FUNCTION PANEL(Performed 05/26/2024) Performed for Infection due to bacteria resistant to multiple antimicrobial drugs * MAGNESIUM BLOOD(Performed 05/26/2024) Performed for Infection due to bacteria resistant to multiple antimicrobial drugs * GLUCOSE - POINT OF CARE(Performed 05/25/2024) * GLUCOSE - POINT OF CARE(Performed 05/25/2024) * GLUCOSE - POINT OF CARE(Performed 05/25/2024) * GLUCOSE - POINT OF CARE(Performed 05/25/2024) * CK BLOOD(Performed 05/25/2024) * CBC W/O DIFFERENTIAL(Performed 05/25/2024) Performed for Infection due to bacteria resistant to multiple antimicrobial drugs * RENAL FUNCTION PANEL(Performed 05/25/2024) Performed for Infection due to bacteria resistant to multiple antimicrobial drugs * MAGNESIUM BLOOD(Performed 05/25/2024) Performed for Infection due to bacteria resistant to multiple antimicrobial drugs * GLUCOSE - POINT OF CARE(Performed 05/24/2024) * GLUCOSE - POINT OF CARE(Performed 05/24/2024) * GLUCOSE - POINT OF CARE(Performed 05/24/2024) * IR PICC LINE INSERT(Performed 05/24/2024) Performed for Infection due to bacteria resistant to multiple antimicrobial drugs * CBC W/O DIFFERENTIAL(Performed 05/24/2024) Performed for Infection due to bacteria resistant to multiple antimicrobial drugs * RENAL FUNCTION PANEL(Performed 05/24/2024) Performed for Infection due to bacteria resistant to multiple antimicrobial drugs * MAGNESIUM BLOOD(Performed 05/24/2024) Performed for Infection due to bacteria resistant to multiple antimicrobial drugs * GLUCOSE - POINT OF CARE(Performed 05/24/2024) * GLUCOSE - POINT OF CARE(Performed 05/23/2024) * GLUCOSE - POINT OF CARE(Performed 05/23/2024) * GLUCOSE - POINT OF CARE(Performed 05/23/2024) * CT US GUIDED NEEDLE PLACEMENT(Performed 05/23/2024) Performed for Infection due to bacteria resistant to multiple antimicrobial drugs, Abdominal wall abscess * CYTOLOGY NON-ROVING TELLER PANEL (STL)(Performed 05/23/2024) Performed for Infection due to bacteria resistant to multiple antimicrobial drugs * LAB MISC TEST (NOT BLOOD)(Performed 05/23/2024) * CULTURE AFB+SMEAR(Performed 05/23/2024) * CULTURE FUNGUS OTHER+FUNGUS SMEAR(Performed 05/23/2024) * CULTURE ANAEROBE(Performed 05/23/2024) * CULTURE FLUID+GRAM STAIN(Performed 05/23/2024) * GLUCOSE - POINT OF CARE(Performed 05/23/2024) * CBC W/O DIFFERENTIAL(Performed 05/23/2024) Performed for Infection due to bacteria resistant to multiple antimicrobial drugs * RENAL FUNCTION PANEL(Performed 05/23/2024) Performed for Infection due to bacteria resistant to multiple antimicrobial drugs * MAGNESIUM BLOOD(Performed 05/23/2024) Performed for Infection due to bacteria resistant to multiple antimicrobial drugs * GLUCOSE - POINT OF CARE(Performed 05/22/2024) * GLUCOSE - POINT OF CARE(Performed 05/22/2024) * GLUCOSE - POINT OF CARE(Performed 05/22/2024) * CT ABDOMEN PELVIS W CONTRAST(Performed 05/22/2024) Performed for Infection due to bacteria resistant to multiple antimicrobial drugs * GLUCOSE - POINT OF CARE(Performed 05/22/2024) * URINE MICROSCOPIC ONLY REFLEX TO CULTURE(Performed 05/21/2024) * URINALYSIS REFLEX MICROSCOPIC REFLEX CULTURE(Performed 05/21/2024) * CULTURE URINE(Performed 05/21/2024) * XR CHEST 1VW PORTABLE(Performed 05/21/2024) Performed for Urinary tract infection without hematuria, site unspecified * LACTIC ACID BLOOD REFLEX TO REPEAT(Performed 05/21/2024) * PT-INR [facility](Performed 05/21/2024) * COMPREHENSIVE METABOLIC PANEL(Performed 05/21/2024) * CBC W AUTO DIFFERENTIAL(Performed 05/21/2024) * CULTURE BLOOD(Performed 05/21/2024) * CULTURE BLOOD(Performed 05/21/2024) * PROC CATHETER CHANGE/INSERTION(Performed 05/17/2024) Performed for Indwelling Clancy catheter present * CULTURE URINE(Performed 05/17/2024) Performed for Dysuria * CT PERC DRAINAGE CATH EXCHANGE(Performed 05/17/2024) Performed for Abscess of bladder * GLUCOSE - POINT OF CARE(Performed 05/17/2024) * CBC W AUTO DIFFERENTIAL(Performed 05/17/2024) Performed for Abdominal wall abscess * URINALYSIS AUTO - POINT OF CARE (AMB) [facility](Performed 05/17/2024) Performed for Indwelling Clancy catheter present * CT DRAIN W CATH PLACEMENT(Performed 05/06/2024) Performed for Abscess of bladder * CREATININE BODY FLUID(Performed 05/06/2024) Performed for Fluid collection at surgical site, sequela * CULTURE URINE(Performed 05/06/2024) Performed for Acute cystitis without hematuria * CULTURE FUNGUS OTHER+FUNGUS SMEAR(Performed 05/06/2024) Performed for Fluid collection at surgical site, sequela * CULTURE WOUND+GRAM STAIN(Performed 05/06/2024) Performed for Fluid collection at surgical site, sequela * GLUCOSE - POINT OF CARE(Performed 05/06/2024) * PT-INR [facility](Performed 05/06/2024) Performed for Abdominal wall abscess * GLUCOSE - POINT OF CARE(Performed 04/24/2024) * GLUCOSE - POINT OF CARE(Performed 04/24/2024) * BASIC METABOLIC PANEL (CALCIUM TOTAL)(Performed 04/24/2024) * CBC W/O DIFFERENTIAL(Performed 04/24/2024) * GLUCOSE - POINT OF CARE(Performed 04/23/2024) * GLUCOSE - POINT OF CARE(Performed 04/23/2024) * GLUCOSE - POINT OF CARE(Performed 04/23/2024) * GLUCOSE - POINT OF CARE(Performed 04/23/2024) * GLUCOSE - POINT OF CARE(Performed 04/22/2024) * GLUCOSE - POINT OF CARE(Performed 04/22/2024) * GLUCOSE - POINT OF CARE(Performed 04/22/2024) * GLUCOSE - POINT OF CARE(Performed 04/22/2024) * GLUCOSE - POINT OF CARE(Performed 04/22/2024) * RENAL FUNCTION PANEL(Performed 04/22/2024) Performed for Suprapubic catheter dysfunction, initial encounter ([facility]) * CBC W/O DIFFERENTIAL(Performed 04/22/2024) Performed for Suprapubic catheter dysfunction, initial encounter ([facility]) * GLUCOSE - POINT OF CARE(Performed 04/21/2024) * GLUCOSE - POINT OF CARE(Performed 04/21/2024) * GLUCOSE - POINT OF CARE(Performed 04/21/2024) * CBC W/O DIFFERENTIAL(Performed 04/21/2024) Performed for Abdominal wall abscess, Pelvic pain in female, Suprapubic catheter dysfunction, initial encounter ([facility]) * BASIC METABOLIC PANEL (CALCIUM TOTAL)(Performed 04/21/2024) Performed for Abdominal wall abscess, Pelvic pain in female, Suprapubic catheter dysfunction, initial encounter ([facility]) * CULTURE BLOOD(Performed 04/20/2024) * CULTURE BLOOD(Performed 04/20/2024) * URINALYSIS REFLEX TO MICROSCOPIC NO CULTURE(Performed 04/20/2024) * CULTURE URINE(Performed 04/20/2024) * TYPE + SCREEN PANEL(Performed 04/20/2024) * PT-INR(Performed 04/20/2024) * MAGNESIUM BLOOD(Performed 04/20/2024) * COMPREHENSIVE METABOLIC PANEL(Performed 04/20/2024) * CBC W AUTO DIFFERENTIAL(Performed 04/20/2024) * IR SUPRAPUBIC CATH PLACEMENT(Performed 03/25/2024) Performed for Urinary incontinence in female * CT PELVIS W CONTRAST(Performed 03/25/2024) Performed for Urinary incontinence in female * PT-INR(Performed 03/25/2024) Performed for Urinary incontinence in female * CBC W AUTO DIFFERENTIAL(Performed 03/25/2024) Performed for Urinary incontinence in female Results * (ABNORMAL) URINALYSIS W/MICROSCOPIC REFLEX TO CULTURE (07/29/2024 3:51 PM COMPATIBILITY TEST ENGINEER) Color UA Yellow Straw, Yellow 07/29/2024 4:21 PM [facility] Clarity UA Slt Cloudy(A) Clear 07/29/2024 4:21 PM [facility] Specific [place] UA 1.010 1.005 - 1.030 07/29/2024 4:21 PM [facility] pH UA 6.0 5.0 - 8.0 pH 07/29/2024 4:21 PM [facility] Protein UA 2+(A) Negative 07/29/2024 4:21 PM [facility] Glucose UA Negative Negative 07/29/2024 4:21 PM [facility] Ketone UA Negative Negative 07/29/2024 4:21 PM [facility] Bilirubin UA Negative Negative 07/29/2024 4:21 PM [facility] Blood UA 3+(A) Negative 07/29/2024 4:21 PM [facility] Nitrite UA Negative Negative 07/29/2024 4:21 PM [facility] Leukocyte Esterase 2+(A) Negative 07/29/2024 4:21 PM [facility] Urobilinogen UA Negative Negative mg/dL 07/29/2024 4:21 PM [facility] RBC UA >100(A) None Seen, 0-2, 3-5 /HPF 07/29/2024 4:21 PM [facility] WBC UA 21-50(A) None Seen, 0-5 /HPF 07/29/2024 4:21 PM [facility] Bacteria UA Trace(A) None /HPF 07/29/2024 4:21 PM [facility] Squamous Epithelial Cells UA 0-2 None Seen, 0-2, 3-5 /HPF 07/29/2024 4:21 PM [facility] Mucus UA 1+ /LPF 07/29/2024 4:21 PM [facility] Yeast Budding UA Few(A) None /HPF 07/29/19 4:21 PM [facility] Calcium Oxalate UA Occasional( A) None /HPF 07/29/2024 4:21 PM [facility] Urine URINE SPECIMEN OBTAINED BY CLEAN CATCH PROCEDURE / Unknown Collection / Unknown 07/29/2024 3:51 PM COMPATIBILITY TEST ENGINEER 07/29/2024 4:04 PM COMPATIBILITY TEST ENGINEER Narrative [facility] - 07/29/2024 4:21 PM COMPATIBILITY TEST ENGINEER Lab Status, Culture Reflex Indicated. Ulices Vides MD LAB - URINALYSIS ORD ERABLES Performing Organization Address City/[facility]/ZIP Co de Phone Number [facility] [address] [place] [address], [facility] [phone] * CULTURE URINE (07/29/2024 3:51 PM COMPATIBILITY TEST ENGINEER) Only the most recent of8 resultswithin the time period is included. Culture Urine 10,000-50,000 CFU/mL urogenital reese SHIMA 07/31/2024 5:43 AM COMPATIBILITY TEST ENGINEER [facility] Urine URINE SPECIMEN OBTAINED BY CLEAN CATCH PROCEDURE / Unknown Collection / Unknown 07/29/2024 3:51 PM COMPATIBILITY TEST ENGINEER 07/29/2024 4:20 PM COMPATIBILITY TEST ENGINEER Ulices Vides MD LAB - MICROBIOLOGY O RDERABLES Performing Organization Address City/[facility]/ZIP Co de Phone Number [facility] [address] [place] [address], [facility] [phone] * DC CYSTOSCOPY,REMV CALCULUS,COMPLIC (07/14/2024 2:03 PM COMPATIBILITY TEST ENGINEER) Narrative Salud Connelly APRN-CNP - 07/14/2024 2:03 PM COMPATIBILITY TEST ENGINEER Salud Connelly APRN-CNP 07/14/2024 2:10 PM Cystoscopy [...] Montejo Salud RUIZ PROCEDURE/MINOR SURGICAL ORDERABLES * DC INSERT TEMP INDWELL BLADD CATH (07/14/2024 12:46 PM COMPATIBILITY TEST ENGINEER) Narrative Salud Connelly APRN-CNP - 07/14/2024 12:46 PM COMPATIBILITY TEST ENGINEER Salud Connelly APRN-CNP 07/14/2024 2:10 PM Procedure: [...] - POINT OF CARE (06/28/2024 5:15 PM COMPATIBILITY TEST ENGINEER) Only the most recent of68 resultswithin the time period is included. Glucose WB/POC 130(H) 70 - 99 mg/dL 06/28/2024 5:48 PM COMPATIBILITY TEST ENGINEER [facility] Specimen Type Cap Fingerstick 2024 5:48 PM COMPATIBILITY TEST ENGINEER [facility] Blood BLOOD SPECIMEN / Unknown 06/28/2024 5:15 PM COMPATIBILITY TEST ENGINEER 06/28/2024 5:48 PM COMPATIBILITY TEST ENGINEER Case Monterroso MD LAB - POINT O F CARE ORDERABLES [facility] [address] [place] [address] * (ABNORMAL) VANCOMYCIN LEVEL TROUGH (06/28/2024 1:00 PM COMPATIBILITY TEST ENGINEER) Only the most recent of2 resultswithin the time period is included. Vancomycin Trough 6.1(L) 10.0 - 20.0 ug/mL 06/28/2024 1:42 PM COMPATIBILITY TEST ENGINEER [facility] Blood BLOOD SPECIMEN / Unknown Venipuncture / Unknown 06/28/2024 1:00 PM COMPATIBILITY TEST ENGINEER 06/28/2024 1:03 PM COMPATIBILITY TEST ENGINEER Matheus Quesada MD LAB - CHEMIS TRY ORDERABLES Performing Organization Address [facility] de Phone Number [facility] [address] [place] [phone] * CBC W/O DIFFERENTIAL (06/28/2024 4:32 AM COMPATIBILITY TEST ENGINEER) Only the most recent of15 resultswithin the time period is included. WBC 6.4 4.0 - 10.7 x10E9/L 06/28/2024 4:47 AM [facility] RBC Count 4.01 3.90 - 5.20 x10E12/L 06/28/2024 4:47 AM [facility] Hemoglobin 12.8 11.9 - 15.8 g/dL 06/28/2024 4:47 AM [facility] Hematocrit 38.4 34.8 - 46.1 % 06/28/2024 4:47 AM [facility] MCV 95.8 80.0 - 98.0 fL 06/28/2024 4:47 AM [facility] MCH 31.9 26.7 - 33.6 pg 06/28/2024 4:47 AM [facility] MCHC 33.3 31.7 - 36.3 g/dL 06/28/2024 4:47 AM [facility] RDW-CV 12.1 11.3 - 14.8 % 06/28/2024 4:47 AM [facility] Platelet Count 226 150 - 420 x10E9/L 06/28/2024 4:47 AM [facility] MPV 8.5 7.8 - 11.4 fL 06/28/2024 4:47 AM [facility] Blood BLOOD SPECIMEN / Unknown Venipuncture / Unknown 06/28/2024 4:32 AM COMPATIBILITY TEST ENGINEER 06/28/2024 4:44 AM [facility] Chandan Bae MD LAB - HEMATOLOGY ORD ERABLES [facility] [address] [place] [address] * (ABNORMAL) RENAL FUNCTION PANEL (06/28/2024 4:32 AM [facility]) Only the most recent of13 resultswithin the time period is included. Glucose 188(H) 70 - 99 mg/dL 06/28/2024 5:07 AM [facility] Sodium 133(L) 136 - 145 mmol/L 06/28/2024 5:07 AM [facility] Potassium 4.5 3.5 - 5.1 mmol/L 06/28/2024 5:07 AM [facility] Chloride 103 98 - 107 mmol/L 06/28/2024 5:07 AM [facility] CO2 23 22 - 29 mmol/L 06/28/2024 5:07 AM [facility] Calcium 8.8 8.4 - 10.4 mg/dL 06/28/2024 5:07 AM [facility] Anion Gap 7 6 - 16 mmol/L 06/28/2024 5:07 AM [facility] BUN 15 7 - 26 mg/dL 06/28/2024 5:07 AM [facility] Creatinine 0.64 0.57 - 1.11 mg/dL 06/28/2024 5:07 AM [facility] Albumin 3.8 3.4 - 5.0 gm/dL 06/28/2024 5:07 AM [facility] Phosphorus 3.0 2.5 - 4.5 mg/dL 06/28/2024 5:07 AM [facility] eGFR by CKD-EPI >90 >=90 mL/min/1.7 3 m2 06/28/2024 5:07 AM [facility] Blood BLOOD SPECIMEN / Unknown Venipuncture / Unknown 06/28/2024 4:32 AM COMPATIBILITY TEST ENGINEER 06/28/2024 4:44 AM COMPATIBILITY TEST ENGINEER Chandan Bae MD LAB - CHEMISTRY RK LUIS Performing Organization Address [facility] Co de Phone Number [facility] [address] [place] [phone] * CK BLOOD (06/28/2024 4:32 AM COMPATIBILITY TEST ENGINEER) Only the most recent of4 resultswithin the time period is included. CK 145 29 - 168 U/L 06/28/2024 6:46 AM COMPATIBILITY TEST ENGINEER [facility] Blood BLOOD SPECIMEN / Unknown Venipuncture / Unknown 06/28/2024 4:32 AM COMPATIBILITY TEST ENGINEER 06/28/2024 4:44 AM COMPATIBILITY TEST ENGINEER Case Monterroso MD LAB - RAGS LABORER RY ORDERABLES Performing Organization Address [facility] de Phone Number [facility] [address] [place] [phone] * (ABNORMAL) VANCOMYCIN LEVEL PEAK (06/28/2024 4:32 AM COMPATIBILITY TEST ENGINEER) Vancomycin Peak 13.6(L) 25.0 - 40.0 ug/mL 06/28/2024 5:06 AM COMPATIBILITY TEST ENGINEER [facility] Blood BLOOD SPECIMEN / Unknown Venipuncture / Unknown 06/28/2024 4:32 AM COMPATIBILITY TEST ENGINEER 06/28/2024 4:44 AM COMPATIBILITY TEST ENGINEER Chandan Bae MD LAB - CHEMISTRY RK LUIS Performing Organization Address [facility] de Phone Number [facility] [address] [place] [phone] * XR CHEST 1VW PORTABLE (06/26/2024 8:37 PM COMPATIBILITY TEST ENGINEER) Only the most recent of2 resultswithin the time period is included. Anatomical Region Laterality Modality Chest Radiographic Rosemary ging 06/27/2024 9:07 AM COMPATIBILITY TEST ENGINEER Impressions 06/27/2024 9:08 AM COMPATIBILITY TEST ENGINEER IMPRESSION: As above. > Interpreting Provider: Kody Rivera MD on 06/27/2024 9:08 AM Narrative 06/27/2024 9:08 AM COMPATIBILITY TEST ENGINEER PROCEDURE: XR CHEST 1VW PORTABLE DATE/TIME OF [...] METABOLIC PANEL (CALCIUM TOTAL) (06/26/2024 4:30 AM COMPATIBILITY TEST ENGINEER) Only the most recent of3 resultswithin the time period is included. Glucose 122(H) 70 - 99 mg/dL 06/26/2024 5:58 AM COMPATIBILITY TEST ENGINEER [facility] Sodium 133(L) 136 - 145 mmol/L 06/26/2024 5:58 AM COMPATIBILITY TEST ENGINEER [facility] Potassium 4.2 3.5 - 5.1 mmol/L 06/26/2024 5:58 AM [facility] Chloride 100 98 - 107 mmol/L 06/26/2024 5:58 AM [facility] CO2 25 22 - 29 mmol/L 06/26/2024 5:58 AM [facility] Calcium 9.0 8.4 - 10.4 mg/dL 06/26/2024 5:58 AM [facility] Anion Gap 8 6 - 16 mmol/L 06/26/2024 5:58 AM [facility] BUN 12 7 - 26 mg/dL 06/26/2024 5:58 AM [facility] Creatinine 0.64 0.57 - 1.11 mg/dL 06/26/2024 5:58 AM [facility] eGFR by CKD-EPI >90 >=90 mL/min/1.7 3 m2 06/26/2024 5:58 AM [facility] Blood BLOOD SPECIMEN / Unknown Lab Venipuncture / Unknown 06/26/2024 4:30 AM COMPATIBILITY TEST ENGINEER 06/26/2024 5:17 AM [facility] Chris Woodall MD LAB - CHEMISTRY RK LUIS [facility] Organization Address City/State/ZIP Co de Phone Number [facility] [address] [place] [address] * (ABNORMAL) URINALYSIS REFLEX MICROSCOPIC REFLEX CULTURE (06/26/2024 2:51 AM COMPATIBILITY TEST ENGINEER) Only the most recent of2 resultswithin the time period is included. Color UA Yellow Yellow, Straw 06/26/2024 3:30 AM [facility] Clarity UA Clear Clear 06/26/2024 3:30 AM [facility] Glucose UA Normal Normal 06/26/2024 3:30 AM [facility] Bilirubin UA Negative Negative 06/26/2024 3:30 AM [facility] Ketone UA Negative Negative 06/26/2024 3:30 AM [facility] Specific [place] UA 1.033(H) 1.005 - 1.030 06/26/2024 3:30 AM [facility] Blood UA 3+(A) Negative 06/26/2024 3:30 AM [facility] pH UA 7.0 5.0 - 9.0 pH 06/26/2024 3:30 AM [facility] Protein UA Trace(A) Negative 06/26/2024 3:30 AM [facility] Urobilinogen UA Normal Normal mg/dL 06/26/2024 3:30 AM [facility] Nitrite UA Negative Negative 06/26/2024 3:30 AM [facility] Leukocyte UA 75 JUAN/uL(A) Negative 06/26/2024 3:30 AM [facility] RBC UA >100(A) 0 - 5 # /hpf 06/26/2024 3:30 AM COMPATIBILITY TEST ENGINEER [facility] WBC UA 6-10(A) 0 - 5 # /hpf 06/26/2024 3:30 AM [facility] Bacteria UA None Seen None Seen 06/26/2024 3:30 AM [facility] Squamous Epithelial Cells None Seen 0 - 5 /hpf 06/26/2024 3:30 AM [facility] Urine SUPRAPUBIC URINE SPECIMEN / Unknown Collection / Unknown 06/26/2024 2:51 AM COMPATIBILITY TEST ENGINEER 06/26/2024 3:17 AM COMPATIBILITY TEST ENGINEER Narrative [facility] - 06/26/2024 3:30 AM COMPATIBILITY TEST ENGINEER Chris Woodall MD LAB - URINALYSIS ORD ERABLES Performing Organization Address [facility]/State/[facility] Co de Phone Number [facility] [address] [place] [address] * CBC W AUTO DIFFERENTIAL (06/25/2024 9:56 PM COMPATIBILITY TEST ENGINEER) Only the most recent of5 resultswithin the time period is included. WBC 8.6 4.0 - 10.7 x10E9/L 06/25/2024 10:07 PM [facility] RBC Count 4.20 3.90 - 5.20 x10E12/L 06/25/2024 10:07 PM [facility] Hemoglobin 13.3 11.9 - 15.8 g/dL 06/25/2024 10:07 PM [facility] Hematocrit 40.4 34.8 - 46.1 % 06/25/2024 10:07 PM [facility] MCV 96.2 80.0 - 98.0 fL 06/25/2024 10:07 PM [facility] MCH 31.7 26.7 - 33.6 pg 06/25/2024 10:07 PM [facility] MCHC 32.9 31.7 - 36.3 g/dL 06/25/2024 10:07 PM [facility] RDW-CV 12.3 11.3 - 14.8 % 06/25/2024 10:07 PM [facility] Platelet Count 224 150 - 420 x10E9/L 06/25/2024 10:07 PM [facility] MPV 8.6 7.8 - 11.4 fL 06/25/2024 10:07 PM [facility] Neutrophil % 69.8 41.0 - 74.0 % 06/25/2024 10:07 PM [facility] Lymphocyte % 21.5 17.0 - 47.0 % 06/25/2024 10:07 PM [facility] Monocyte % 5.9 3.0 - 11.0 % 06/25/2024 10:07 PM [facility] Eosinophil % 2.3 0.0 - 7.0 % 06/25/2024 10:07 PM [facility] Basophil % 0.2 0.0 - 1.6 % 06/25/2024 10:07 PM [facility] Immature Granulocytes % 0.3 0.0 - 1.0 % 06/25/2024 10:07 PM [facility] Neutrophil Absolute 6.01 1.60 - 7.50 x10E9/L 06/25/2024 10:07 PM [facility] Lymphocyte Absolute 1.85 1.00 - 4.40 x10E9/L 06/25/2024 10:07 PM [facility] Monocyte Absolute 0.51 0.15 - 1.00 x10E9/L 06/25/2024 10:07 PM [facility] Eosinophil Absolute 0.20 0.00 - 0.60 x10E9/L 06/25/2024 10:07 PM [facility] Basophil Absolute 0.02 0.00 - 0.13 x10E9/L 06/25/2024 10:07 PM [facility] Blood BLOOD SPECIMEN / Unknown Lab Venipuncture / Unknown 06/25/2024 9:56 PM COMPATIBILITY TEST ENGINEER 06/25/2024 10:03 PM COMPATIBILITY TEST ENGINEER Chris Woodall MD LAB - HEMATOLOGY ORD ERABLES [facility] [address] [place] [address] * (ABNORMAL) COMPREHENSIVE METABOLIC PANEL (06/25/2024 9:56 PM [facility]) Only the most recent of3 resultswithin the time period is included. Pathologist [facility] Glucose 163(H) 70 - 99 mg/dL 06/25/2024 10:26 PM [facility] Sodium 133(L) 136 - 145 mmol/L 06/25/2024 10:26 PM [facility] Potassium 4.2 3.5 - 5.1 mmol/L 06/25/2024 10:26 PM [facility] Chloride 101 98 - 107 mmol/L 06/25/2024 10:26 PM [facility] CO2 25 22 - 29 mmol/L 06/25/2024 10:26 PM [facility] Calcium 9.3 8.4 - 10.4 mg/dL 06/25/2024 10:26 PM [facility] Anion Gap 7 6 - 16 mmol/L 06/25/2024 10:26 PM [facility] BUN 12 7 - 26 mg/dL 06/25/2024 10:26 PM [facility] Creatinine 0.73 0.57 - 1.11 mg/dL 06/25/2024 10:26 PM [facility] Alkaline Phosphatase 53 40 - 150 U/L 06/25/2024 10:26 PM [facility] ALT 22 0 - 55 U/L 06/25/2024 10:26 PM [facility] AST 19 5 - 34 U/L 06/25/2024 10:26 PM [facility] Protein Total 7.1 6.4 - 8.3 gm/dL 06/25/2024 10:26 PM [facility] Albumin 3.9 3.4 - 5.0 gm/dL 06/25/2024 10:26 PM [facility] Bilirubin Total 0.3 0.2 - 1.2 mg/dL 06/25/2024 10:26 PM COMPATIBILITY TEST ENGINEER [facility] eGFR by CKD-EPI 89(L) >=90 mL/min/1.7 3 m2 06/25/2024 10:26 PM COMPATIBILITY TEST ENGINEER [facility] Blood BLOOD SPECIMEN / Unknown Lab Venipuncture / Unknown 06/25/2024 9:56 PM COMPATIBILITY TEST ENGINEER 06/25/2024 10:03 PM COMPATIBILITY TEST ENGINEER Chris Woodall MD LAB - CHEMISTRY RK LUIS Performing Organization Address [facility]/ZIP Co de Phone Number [facility] [address] [place] [address] [phone] * CULTURE BLOOD (06/25/2024 9:24 PM COMPATIBILITY TEST ENGINEER) Only the most recent of6 resultswithin the time period is included. Culture No growth day 5 SHIMA 07/01/2024 2:01 AM COMPATIBILITY TEST ENGINEER [facility] Blood PERIPHERAL BLOOD / Unknown Lab Venipuncture / Unknown 06/25/2024 9:24 PM COMPATIBILITY TEST ENGINEER 06/25/2024 9:38 PM COMPATIBILITY TEST ENGINEER Chris Woodall MD LAB - MICROBIOLOGY O RDERABLES Performing Organization Address [facility] de Phone Number [facility] [address] [place], [place] [address], [facility] [phone] * LACTIC ACID BLOOD REFLEX TO REPEAT (06/25/2024 9:18 PM COMPATIBILITY TEST ENGINEER) Only the most recent of2 resultswithin the time period is included. Lactic Acid 1.0 <=2.0 mmol/L 06/25/2024 10:26 PM COMPATIBILITY TEST ENGINEER [facility] Blood BLOOD SPECIMEN / Unknown Lab Venipuncture / Unknown 06/25/2024 9:18 PM COMPATIBILITY TEST ENGINEER 06/25/2024 10:02 PM COMPATIBILITY TEST ENGINEER Chris Woodall MD LAB - CHEMISTRY RK LUIS Performing Organization Address [facility] Co de Phone Number [facility] [address] [place] [phone] * MAGNESIUM BLOOD (06/01/2024 3:07 AM COMPATIBILITY TEST ENGINEER) Only the most recent of11 resultswithin the time period is included. Magnesium 1.6 1.6 - 2.6 mg/dL 06/01/2024 4:27 AM COMPATIBILITY TEST ENGINEER [facility] Blood BLOOD SPECIMEN / Unknown Lab Venipuncture / Unknown 06/01/2024 3:07 AM COMPATIBILITY TEST ENGINEER 06/01/2024 4:00 AM COMPATIBILITY TEST ENGINEER Herbie Beauchamp MD LAB - CHEMISTRY RK LUIS [address] [address], [facility] [phone] * IR Picc Line Insert (05/24/2024 11:57 AM COMPATIBILITY TEST ENGINEER) Anatomical Region Laterality Modality Chest, Upper Extremity Other Narrative 05/24/2024 11:56 AM COMPATIBILITY TEST ENGINEER Herbie Briscoe RN 05/24/2024 11:57 AM Department of Interventional Radiology Procedure Note: PICC line placement History: May Myers is a 68 year old female with a significant past medical history of T2DM, HTN, PVD, COPD, CARYN, hypothyroidism, post 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 Indication: IV antibiotic therapy Collection Systems Worker: Herbie Briscoe RN [facility]- Procedures: 1. Limited extremity ultrasound to assess vascular patency 2. Ultrasound guided access of the Right basilic vein. 3. Placement of peripherally inserted central line with magnetic tracking and ECG tip positioning system (Sayduck). Anesthesia: Local anesthesia with 4mL of 1% [...] magnetic tracking and ECG tip positioning system (Playroom), The peel-away sheath was removed, and the [...] procedure was performed by Herbie Briscoe RN [facility]. The final image was reviewed by , Interventional Radiology Attending- David Horner MD The catheter can be used now. Herbie Beauchamp MD IR ORDERABLES * CT US Guided Needle Placement (05/23/2024 11:19 AM COMPATIBILITY TEST ENGINEER) Anatomical Region Laterality Modality Chest, Abdomen Computed Tomogra phy 05/23/2024 11:3 0 AM COMPATIBILITY TEST ENGINEER Impressions 05/23/2024 12:16 PM COMPATIBILITY TEST ENGINEER Impression: Successful ultrasound-guided aspiration of suprapubic abdominal [...] evaluation, please review the evaluation forms in [employer]. For details on monitored clinical parameters during the intra-service sedation time, please review the procedure nurse documentation in [facility]. > Interpreting Provider: Mary Huynh MD on 05/23/2024 12:16 PM Narrative 05/23/2024 12:16 PM COMPATIBILITY TEST ENGINEER History: 68-year-old female with suprapubic fluid collection. [...] was provided with 1% Lidocaine. A 5 Gambian coaxial needle system was advanced in stages [...] procedure well and was transferred to the [facility] area in stable condition. There were no immediate complications associated with the procedure. Procedure Note Lino Mary, DO - 05/23/2024 History: 68-year-old female with [...] was provided with 1% Lidocaine. A 5 Gambian coaxial needle system was advanced in stagesunder [...] the [facility] well [facility]. [facility] were [...] evaluation, please review the evaluation forms in [facility]. Fordetails on monitored clinical parameters during the intra-service sedation time, please review the procedure nurse documentation in [facility]. > Interpreting Provider: Mary Huynh MD on 05/23/2024 12:[address] ORDERABLES * CULTURE FUNGUS OTHER+FUNGUS SMEAR (05/23/2024 11:15 AM COMPATIBILITY TEST ENGINEER) Only the most recent of2 resultswithin the time period is included. Culture No fungus isolated SHIMA 06/20/2024 6:40 AM COMPATIBILITY TEST ENGINEER [facility] Fungus Stain No yeast or hyphae seen 06/20/2024 6:40 AM COMPATIBILITY TEST ENGINEER [facility] Microbiology BODY FLUID SPECIMEN / Unknown Collection / Unknown 05/23/2024 11:15 AM COMPATIBILITY TEST ENGINEER 05/23/2024 11:44 AM COMPATIBILITY TEST ENGINEER Herbie Beauchamp MD LAB - MICROBIOLOGY O RDERABLES [facility] [address] [place], [place] [address], [facility] [phone] * CYTOLOGY NON-ROVING TELLER PANEL (STL) (05/23/2024 11:15 AM COMPATIBILITY TEST ENGINEER) Case Report Medical Cytology Report Case: [id number] Authorizing Provider: Herbie Beauchamp MD Collected: 05/23/2024 11:15 AM Ordering Location: [facility] SHORT STAY UNIT Received: 05/23/2024 01:35 PM Pathologist: Benjamin Arechiga MD Specimen: Body Fluid , Suprapubic abscess 05/24/2024 1:19 PM [facility] Specimen Adequacy Adequate cellularity for evaluation. 05/24/2024 1:19 PM [facility] Final Diagnosis Body fluid, supra [...] fluid 05/24/2024 1:19 PM [facility] Microscopic Description Microscopic examination substantiates the final diagnosis. 05/24/2024 1:19 PM [facility] Pathologist Location at [facility] 05/24/2024 1:19 PM [facility] Disclaimer The performance characteristics of all immunohistochemical and indirect immunofluorescence stains (if any) cited in this report were determined by the Histopathology Laboratory of [facility]. Some of these tests rely on the use of analyte-specific reagents and are subject to specific labeling requirements by the [place] Food and Drug Administration. Such tests were developed by the Histology Laboratory of [facility] and have not been cleared or [...] Unknown Collection / Unknown 05/23/2024 11:15 AM COMPATIBILITY TEST ENGINEER 05/23/2024 1:35 PM COMPATIBILITY TEST ENGINEER Herbie Beauchamp MD LAB - PATHOLOGY/CYTO LOGY ORDERABLES Performing Organization Address City/[facility]/ZIP Co de Phone Number [facility] [address] [place], [place] [id number] [place] [address] * LAB MISC TEST (NOT BLOOD) (05/23/2024 11:15 AM COMPATIBILITY TEST ENGINEER) Test Name CRBF 06/12/2024 11:09 AM COMPATIBILITY TEST ENGINEER [facility] REF LAB NON INTERF Test Result See Scanned Report 06/12/2024 11:09 AM COMPATIBILITY TEST ENGINEER [facility] REF [facility] NON INTERF Comment Ref Lab ALARCON 06/12/2024 11:09 AM COMPATIBILITY TEST ENGINEER [facility] REF [facility] NON INTERF Other SPECIMEN FROM ABSCESS / Unknown Collection / Unknown 05/23/2024 11:15 AM COMPATIBILITY TEST ENGINEER 05/23/2024 12:36 PM COMPATIBILITY TEST ENGINEER Herbie Beauchamp MD LAB - BODY FLUID ORD ERABLES Performing Organization Address [facility] Co de Phone Number [facility] REF LAB NON INTERF [address] [place] [address], [facility] [phone] * (ABNORMAL) CULTURE FLUID+GRAM STAIN (05/23/2024 11:15 AM COMPATIBILITY TEST ENGINEER) Culture Light Staphylococcus epidermidis(AA) SHIMA 05/27/2024 12:01 PM COMPATIBILITY TEST ENGINEER [facility] Culture Light Staphylococcus lugdunensis(AA) SHIMA 05/27/2024 12:01 PM COMPATIBILITY TEST ENGINEER [facility] Gram Stain Light Polymorphonuclear cells 05/27/2024 12:01 PM COMPATIBILITY TEST ENGINEER [facility] Gram Stain No organisms seen 024 12:01 PM COMPATIBILITY TEST ENGINEER [facility] Fluid BODY FLUID SPECIMEN / Unknown Collection / Unknown 05/23/2024 11:15 AM COMPATIBILITY TEST ENGINEER 05/23/2024 11:44 AM COMPATIBILITY TEST ENGINEER Narrative Organism Antibiotic Method Susceptibility Staphylococcus epidermidis [...] - MICROBIOLOGY O BLANK Performing Organization Address [facility] de Phone Number [facility] [address] [place] [address], [facility] [phone] * CULTURE AFB+SMEAR (05/23/2024 11:15 AM COMPATIBILITY TEST ENGINEER) Culture No acid-fast bacillus isolated 07/04/2024 8:25 AM COMPATIBILITY TEST ENGINEER [facility] AFB Smear No acid-fast bacilli seen 07/04/2024 8:25 AM COMPATIBILITY TEST ENGINEER [facility] Microbiology BODY FLUID SPECIMEN / Unknown Collection / Unknown 05/23/2024 11:15 AM COMPATIBILITY TEST ENGINEER 05/23/2024 12:23 PM COMPATIBILITY TEST ENGINEER Herbie Beauchamp MD LAB - MICROBIOLOGY O BLANK Performing Organization Address [facility] Phone Number [facility] [address] [place] [address], [facility] [phone] * CULTURE ANAEROBE (05/23/2024 11:15 AM COMPATIBILITY TEST ENGINEER) Culture No anaerobic organisms isolated SHIMA 05/29/2024 8:29 AM COMPATIBILITY TEST ENGINEER [facility] Microbiology BODY FLUID SPECIMEN / Unknown Collection / Unknown 05/23/2024 11:15 AM COMPATIBILITY TEST ENGINEER 05/23/2024 11:44 AM COMPATIBILITY TEST ENGINEER Herbie Beauchamp MD LAB - MICROBIOLOGY O BLANK Performing Organization Address [facility]/State/ZIP Co de Phone Number [facility] [address] [place], [place] [address], [facility] [phone] * CT Abdomen Pelvis W Contrast (05/22/2024 9:30 AM COMPATIBILITY TEST ENGINEER) Anatomical Region Laterality Modality Abdomen, Pelvis Computed Tomogra phy 05/22/2024 9:44 AM COMPATIBILITY TEST ENGINEER Impressions 05/22/2024 1:10 PM COMPATIBILITY TEST ENGINEER Impression 1. Superior to the suprapubic catheter [...] queried. Report dictated by Jeanmarie Jasso MD(radiology transcriptionist). I, Bina Reynolds MD have personally reviewed and interpreted this examination/study. > Interpreting Provider: Bina Reynolds MD on 05/22/2024 1:10 PM Narrative 05/22/2024 1:10 PM COMPATIBILITY TEST ENGINEER PROCEDURE: CT ABDOMEN PELVIS W CONTRAST, DATE/TIME OF EXAM: 05/22/2024 9:31 AM, LOCATION [facility] INDICATION: A49.9: Infection due to bacteria resistant [...] DATE/TIME OF EXAM: 05/22/2024 9:31 AM, LOCATION [facility] INDICATION: A49.9: Infection due to bacteria resistant [...] 1.5 cm hypoattenuating lesion noted at hepatic [id number]. Other subcentimeter hypoattenuating lesions are too small [...] clinicallyqueried. Report dictated by Jeanmarie Jasso MD(radiology transcriptionist). I, Bina Reynolds MD have personally reviewed and interpreted this examination/study. > Interpreting Provider: Bina Reynolds MD on 05/22/2024 1:10 PM Herbie Beauchamp MD CT ORDERABLES * (ABNORMAL) URINE MICROSCOPIC ONLY REFLEX TO CULTURE (05/21/2024 1:41 PM COMPATIBILITY TEST ENGINEER) Reflex Status Culture to follow 05/21/2024 2:14 PM COMPATIBILITY TEST ENGINEER [facility] RBC UA 11-20(A) None Seen, 0-2, 3-5 /HPF 05/21/2024 2:14 PM [facility] WBC UA >100(A) None Seen, 0-5 /HPF 05/21/2024 2:14 PM [facility] Bacteria UA 3+(A) None /HPF 05/21/2024 2:14 PM COMPATIBILITY TEST ENGINEER [facility] Squamous Epithelial Cells UA 0-2 None Seen, 0-2, 3-5 /HPF 05/21/2024 2:14 PM COMPATIBILITY TEST ENGINEER [facility] Mucus UA 1+ /LPF 05/21/2024 2:14 PM COMPATIBILITY TEST ENGINEER [facility] Calcium Oxalate UA Occasional( A) None /HPF 05/21/2024 2:14 PM [facility] Urine URINE SPECIMEN OBTAINED BY CLEAN CATCH PROCEDURE / Unknown Collection / Unknown 05/21/2024 1:41 PM COMPATIBILITY TEST ENGINEER 05/21/2024 1:52 PM COMPATIBILITY TEST ENGINEER Narrative [facility] - 05/21/2024 2:14 PM COMPATIBILITY TEST ENGINEER Urine sample less that 1 mL. Microscopic exam performed on unconcentrated sample. Simi Thomas PARTNERSHIP DEVELOPMENT MANAGER-OVERSEAMER LAB - URINAL YSIS ORDERABLES [facility] [address] [place] [address], [facility] [phone] * PT-INR [facility] (05/21/2024 12:58 PM COMPATIBILITY TEST ENGINEER) Only the most recent of2 resultswithin the time period is included. PT 12.2 12.1 - 14.8 Seconds 05/21/2024 1:36 PM COMPATIBILITY TEST ENGINEER [facility] INR 0.9 See Comment 05/21/2024 1:36 PM COMPATIBILITY TEST ENGINEER [facility] Comment:The suggested therap eutic range for standard coumadin (warfarin) therapy is an INR of 2.0-3.0. For high-risk patients (Mechanical Mitral Valve Prosthesis, etc.), the suggested prophylactic therapeutic range is an INR of 2.5-3.5. Blood BLOOD SPECIMEN / Unknown Venipuncture / Unknown 05/21/2024 12:58 PM COMPATIBILITY TEST ENGINEER 05/21/2024 1:15 PM COMPATIBILITY TEST ENGINEER Kishore Godinez MD LAB - COAGULATION OR DERABLES [facility] [address] [place] [address], [facility] [phone] * PROC CATHETER CHANGE/INSERTION (05/17/2024 12:50 PM COMPATIBILITY TEST ENGINEER) Narrative Vicky Costa LPN - 05/17/2024 12:50 PM COMPATIBILITY TEST ENGINEER Vicky Costa LPN 05/18/2024 2:01 PM Patient [...] weeks for SP catheter change. Salud Connelly PARTNERSHIP DEVELOPMENT MANAGER-OVERSEAMER PROCEDURE/MINOR SURGICAL ORDERABLES * CT Perc Drainage Cath Exchange (05/17/2024 8:37 AM COMPATIBILITY TEST ENGINEER) Anatomical Region Laterality Modality Abdomen Computed Tomogra phy 05/17/2024 4:37 PM COMPATIBILITY TEST ENGINEER Impressions 05/17/2024 4:41 PM COMPATIBILITY TEST ENGINEER Impression: CT-guided tube check through the existing [...] 05/17/2024 4:41 PM Narrative 05/17/2024 4:41 PM COMPATIBILITY TEST ENGINEER PROCEDURE: CT PERC DRAINAGE CATH EXCHANGE DATE/TIME OF EXAM: 05/17/2024 8:42 AM Indication: N30.80: Abscess of bladder History: 68-year-old female with anterior abdominal wall abscess status post drain placement. Operators: 1.Dr. Matias Saleh, Attending Physician Anesthesia: None Procedure: 1.Limited non-contrast CT of the abdomen. 2.CT-guided abscessogram/tube check through the existing 10 Gambian ReSolve pigtail drainage catheter in the anterior [...] was performed which showed the existing 10 Gambian pigtail drainage catheter in the anterior abdominal [...] abdomenwas performed which showed the existing 10 Gambian pigtail drainage catheterin the anterior abdominal wall [...] the procedure well [facility]. There were [...] POCT - Ketones UA POCT - Specific [place] UA 1.015 Blood Urine POCT 3+ pH UA 6.5 Protein UA 1+ Urobilinogen UA - Nitrite UA + WBC UA 2+ Urine URINE / Unknown 05/17/2024 Salud Connelly PARTNERSHIP DEVELOPMENT MANAGER-OVERSEAMER LAB - POINT OF CARE ORDERABLES * CT Drain W Cath Placement (05/06/2024 1:18 PM COMPATIBILITY TEST ENGINEER) Anatomical Region Laterality Modality Abdomen Computed Tomogra phy 05/06/2024 2:15 PM COMPATIBILITY TEST ENGINEER Impressions 05/12/2024 9:50 AM COMPATIBILITY TEST ENGINEER Impression: Ultrasound-guided placement of a 10 Gambian Resolve pigtail drainage catheter in lower anterior [...] evaluation, please review the evaluation forms in [facility]. For details on monitored clinical parameters during the intra-service sedation time, please review the procedure nurse documentation in [facility]. > Dictated by Deric Rossi MD (Concrete Paving Supervisor) 05/06/2024 2:15 PM Narda Sandhu MD have personally reviewed and interpreted this examination/study. > Interpreting Provider: Narda Pierce MD on 05/12/2024 9:50 AM Narrative 05/12/2024 9:50 AM COMPATIBILITY TEST ENGINEER History: 68-year-old female. Anterior abdominal wall fluid collection. Operators: 1.Attending - Narda Pierce 2.Resident - Derci Rossi Anesthesia: 1.Local anesthesia - 10 mL of 1% lidocaine 2.Intravenous conscious sedation - Versed 1 mg and Fentanyl 50 mcg Procedure: 1.Ultrasound-guided placement of a 10 Gambian Resolve pigtail drainage catheter in the lower [...] was provided with 1% Lidocaine. A 5 Gambian co-axial needle was advanced in stages under ultrasound guidance. Upon aspiration of fluid, the outer-sheath was advanced within the collection. A 0.035 inch guidewire was looped within the collection, and following series of dilatation/exchanges, a 10 Gambian Resolve pigtail drainage catheter was advanced into [...] mcg Procedure: 1.Ultrasound-guided placement of a 10 Gambian Resolve pigtail drainage catheter in the lower [...] was provided with 1% Lidocaine. A 5 Gambian co-axial needle was advancedin stages under ultrasound guidance. Upon aspiration of fluid, the outer-sheath was advanced within the collection. A 0.035 inch guidewirewas looped within the collection, and following series ofdilatation/exchanges, a 10 Gambian Resolve pigtail drainage catheter was advanced into [...] procedure. Impression: Ultrasound-guided placement of a 10 Gambian Resolve pigtail drainage catheter in lower anterior [...] evaluation, please review the evaluation forms in [facility]. For details on monitored clinical parameters during the intra-service sedation time, please review the procedure nurse documentation in [facility]. > Dictated by Deric Kesani, MD (Concrete Paving Supervisor) 05/06/2024 2:15 PM INarda MD have personally reviewed and interpreted this examination/study. > Interpreting Provider: Narda Pierce MD on 05/12/2024 9:[address] Vides MD [address] ORDERABLES * CREATININE BODY FLUID (05/06/2024 1:13 PM COMPATIBILITY TEST ENGINEER) Creatinine Fluid 0.40 Not Established For Fluids mg/dL 05/06/2024 1:54 PM COMPATIBILITY TEST ENGINEER [facility] Fluid Type Other 05/06/2024 1:54 PM COMPATIBILITY TEST ENGINEER [facility] Other Fluid Source: subQ fluid collection 05/06/2024 1:54 PM COMPATIBILITY TEST ENGINEER [facility] Fluid MISCELLANEOUS SAMPLES / Unknown Collection / Unknown 05/06/2024 1:13 PM COMPATIBILITY TEST ENGINEER 05/06/2024 1:16 PM COMPATIBILITY TEST ENGINEER Narrative [facility] - 05/06/2024 1:54 PM COMPATIBILITY TEST ENGINEER The laboratory has not established the reference interval and analytic performance for this body fluid test. The test result must be integrated into the clinical context for interpretation. Body fluid source not validated, interpret results with caution. Ulices Vides MD LAB - BODY FLUID ORD ERABLES [facility] [address] [place] [address], [facility] [phone] * CULTURE WOUND+GRAM STAIN (05/06/2024 12:50 PM COMPATIBILITY TEST ENGINEER) Culture No growth SHIMA 05/08/2024 5:56 PM COMPATIBILITY TEST ENGINEER [facility] MICROBIOLOGY Gram Stain Moderate Red blood cells 05/08/2024 5:56 PM COMPATIBILITY TEST ENGINEER [facility] MICROBIOLOG[facility] Gram Stain Rare Polymorphonuclear cells 05/08/2024 5:56 PM COMPATIBILITY TEST ENGINEER [facility] MICROBIOLOGY Gram Stain No organisms seen 024 5:56 PM COMPATIBILITY TEST ENGINEER [facility] MICROBIOLOGY Microbiology CYST TISSUE / Unknown Collection / Unknown 05/06/2024 12:50 PM COMPATIBILITY TEST ENGINEER 05/06/2024 1:17 PM COMPATIBILITY TEST ENGINEER Ulices Vides MD LAB - MICROBIOLOGY O RDERABLES [facility] MICROBIOLOGY [address] [place] [address], [facility] [phone] * (ABNORMAL) URINALYSIS REFLEX TO MICROSCOPIC NO CULTURE (04/20/2024 6:35 PM COMPATIBILITY TEST ENGINEER) Color UA Brown(A) Yellow, Straw 04/20/2024 7:38 PM COMPATIBILITY TEST ENGINEER [facility] Clarity UA Turbid(A) Clear 04/20/2024 7:38 PM COMPATIBILITY TEST ENGINEER [facility] Glucose UA Normal Normal 04/20/2024 7:38 PM COMPATIBILITY TEST ENGINEER [facility] Bilirubin UA Negative Negative 04/20/2024 7:38 PM COMPATIBILITY TEST ENGINEER [facility] Ketone UA Negative Negative 04/20/2024 7:38 PM COMPATIBILITY TEST ENGINEER [facility] Specific [place] UA 1.016 1.005 - 1.030 04/20/2024 7:38 PM COMPATIBILITY TEST ENGINEER [facility] Blood UA 1+(A) Negative 04/20/2024 7:38 PM COMPATIBILITY TEST ENGINEER [facility] pH UA 6.0 5.0 - 9.0 pH 04/20/2024 7:38 PM COMPATIBILITY TEST ENGINEER [facility] Protein UA 2+(A) Negative 04/20/2024 7:38 PM COMPATIBILITY TEST ENGINEER [facility] Urobilinogen UA 2.0(A) Normal mg/dL 04/20/2024 7:38 PM COMPATIBILITY TEST ENGINEER [facility] Nitrite UA Positive(A) Negative 04/20/2024 7:38 PM COMPATIBILITY TEST ENGINEER [facility] Leukocyte UA 500 JUAN/uL(A) Negative 04/20/2024 7:38 PM COMPATIBILITY TEST ENGINEER [facility] RBC UA >100(A) 0 - 5 # /hpf 04/20/2024 7:38 PM COMPATIBILITY TEST ENGINEER [facility] WBC UA >100(A) 0 - 5 # /hpf 04/20/2024 7:38 PM COMPATIBILITY TEST ENGINEER [facility] Bacteria UA Trace(A) None Seen 04/20/2024 7:38 PM COMPATIBILITY TEST ENGINEER [facility] Squamous Epithelial Cells 0-2 0 - 5 /hpf 04/20/2024 7:38 PM COMPATIBILITY TEST ENGINEER [facility] Mucus UA 1+ /LPF 04/20/2024 7:38 PM COMPATIBILITY TEST ENGINEER [facility] Urine URINE SPECIMEN OBTAINED BY CLEAN CATCH PROCEDURE / Unknown Collection / Unknown 04/20/2024 6:35 PM COMPATIBILITY TEST ENGINEER 04/20/2024 6:53 PM COMPATIBILITY TEST ENGINEER Narrative [facility] - 04/20/2024 7:38 PM COMPATIBILITY TEST ENGINEER Mukul Silverio DO LAB - URINALYSI S ORDERABLES Performing Organization Address [facility] Co de Phone Number [facility] [address] [place] [address] * TYPE + SCREEN PANEL (04/20/2024 4:13 PM COMPATIBILITY TEST ENGINEER) ABO Rh A POS 04/20/2024 4:56 PM COMPATIBILITY TEST ENGINEER [facility] BLOOD BANK LAB Comment:No history; collect retype. Antibody Screen NEG 4:56 PM COMPATIBILITY TEST ENGINEER [facility] BLOOD [facility] Blood Bank BLOOD SPECIMEN / Unknown Venipuncture / Unknown 04/20/2024 4:13 PM COMPATIBILITY TEST ENGINEER 04/20/2024 4:18 PM COMPATIBILITY TEST ENGINEER Mukul Silverio DO LAB - BLOOD BAN K ORDERABLES Performing Organization Address [facility] de Phone Number [facility] [address] [place] [address] * PT-INR (04/20/2024 4:13 PM COMPATIBILITY TEST ENGINEER) Only the most recent of2 resultswithin the time period is included. PT 13.1 12.1 - 14.8 sec 04/20/2024 4:29 PM COMPATIBILITY TEST ENGINEER [facility] INR 1.0 0.9 - 1.1 04/20/2024 4:29 PM COMPATIBILITY TEST ENGINEER [facility] Blood BLOOD SPECIMEN / Unknown Venipuncture / Unknown 04/20/2024 4:13 PM COMPATIBILITY TEST ENGINEER 04/20/2024 4:18 PM COMPATIBILITY TEST ENGINEER Narrative [facility] - 04/20/2024 4:29 PM COMPATIBILITY TEST ENGINEER Conventional Warfarin Anticoagulant Therapy: INR Reference Range: 2.0-3.0 Intensive Warfarin Anticoagulant Therapy: INR Reference Range: 2.5-3.5 Mukul Silverio DO LAB - COAGULATI ON ORDERABLES Performing Organization Address City/[facility]/ZIP Co de Phone Number [facility] [address] [place] [employer], [place] [phone] * IR Suprapubic Cath Placement (03/25/2024 9:25 AM CDT) Anatomical Region Laterality Modality Abdomen X-Ray Angiograph y 03/25/2024 2:25 PM CDT Impressions 03/25/2024 2:29 PM CDT Impression: Successful ultrasound-guided placement of a 14 Gambian pigtail drainage catheter in the bladder via an anterior midline approach, as described above. Follow-up: The catheter is open for external drainage. Flush the catheter with 10 mL of saline three times a day. I, Dr. Matias Saleh, was present and performed/supervised the entire procedure. Moderate sedation on this patient was ordered by me, administered intravenously in my presence, and monitored by the procedure nurse as an independent trained observer who was present throughout the procedure. The following parameters were monitored: oxygen saturation, heart rate, blood pressure, and response to care. Intra-service sedation start time was 0911 and end time was 0925 during which I was present. Total physician intra-service sedation time was 14 minutes. For details on pre moderate sedation and post moderate sedation patient evaluation, please review the evaluation forms in [facility]. For details on monitored clinical parameters during the intra-service sedation time, please review the procedure nurse documentation in [facility]. > Interpreting Provider: Matias Saleh DO on 03/25/2024 2:29 PM Narrative 03/25/2024 2:29 PM CDT History: 68-year-old female with urinary incontinence and hypoactivity of the bladder. She presents for suprapubic catheter placement. Operators: 1.Dr. Matias Saleh, Attending Physician Anesthesia: 1.Local anesthesia - 10 mL of 1% lidocaine 2.Intravenous conscious sedation - Versed 2 mg and Fentanyl 100 mcg Procedure: 1.Limited ultrasound evaluation of the bladder. 2.Ultrasound and fluoroscopically guided placement of a 14 Gambian pigtail drainage catheter in the bladder. Procedure in detail: The procedure, risks, and possible complications were explained to the patient in detail, and informed consent was obtained. The patient was placed in a supine position on the procedure table and a limited ultrasound evaluation of the bladder was performed after instilling approximately 500 mL of fluid through a Clancy catheter, demonstrating a dilated bladder with an anterior midline access. A percutaneous entry site was marked on the skin. The patient received intravenous Versed and Fentanyl for conscious sedation. A qualified radiology nurse monitored the patient s vital signs throughout the procedure. The marked site and skin around the region of interest was prepped and draped in sterile fashion. Local anesthesia was provided with 1% Lidocaine. A 5 Gambian coaxial needle system was advanced in stages under real time ultrasound guidance. Upon aspiration, the outer-sheath was advanced within the bladder. A 0.035 wire was advanced through the sheath and following a series of dilatation/exchanges, a 14 Gambian ReSolve pigtail drainage catheter was advanced within the collection. Contrast administration confirmed placement within the bladder. Post-drainage limited ultrasound evaluation showed the catheter in satisfactory position. The patient tolerated the procedure well and was transferred to the holding area in stable condition. There were no immediate complications associated with the procedure. Procedure Note Matias Saleh MD - 03/25/2024 History: 68-year-old female with urinary incontinence and hypoactivityof the bladder. She presents for suprapubic catheter placement. Operators: 1.Dr. Matias Saleh, Attending Physician Anesthesia: 1.Local anesthesia - 10 mL of 1% lidocaine 2.Intravenous conscious sedation - Versed 2 mg and Fentanyl 100 mcg Procedure: 1.Limited ultrasound evaluation of the bladder. 2.Ultrasound and fluoroscopically guided placement of a 14 Frenchpigtail drainage catheter in the bladder. Procedure in detail: The procedure, risks, and possible complications were explained to the patient in detail, and informed consent was obtained. The patient was placed in a supine position on the procedure table and a limitedultrasound evaluation of the bladder was performed after instilling [id number] mL of fluid through a Clancy catheter, demonstrating a dilated bladderwith an anterior midline access. A percutaneous entry site was marked on the skin. The patient received intravenous Versed and Fentanyl for conscious sedation. A qualified radiology nurse monitored the patient s vital signs throughout the procedure. The marked site and skin around the region of interest was prepped and draped in sterile fashion. Local anesthesia was provided with 1% Lidocaine. A 5 Gambian coaxial needle system was advanced in stagesunder real time ultrasound guidance. Upon aspiration, the outer-sheath was advanced within the bladder. A 0.035 wire was advanced through thesheath and following a series of dilatation/exchanges, a 14 Gambian ReSolvepigtail drainage catheter was advanced within the collection. Contrast administration confirmed placement within the bladder. Post-drainage limited ultrasound evaluation showed the catheter in satisfactory position. The patient tolerated the procedure well and [facility]. There were no immediate complicationsassociated with the procedure. Impression: Successful ultrasound-guided placement of a 14 Frenchpigtail drainage catheter in the bladder via an anterior midline approach, as described above. Follow-up: The catheter is open for external drainage. Flush thecatheter with 10 mL of saline three times a day. I, Dr. Matias Saleh, was present and performed/supervised the entire procedure. Moderate sedation on this patient was ordered by me, administered intravenously in my presence, and monitored by theprocedure nurse as an independent trained observer who was present throughout the procedure. The following parameters were monitored: oxygen saturation, heart rate, blood pressure, and response to care. Intra-service sedation start time was 0911 and end time was 0925 during which I was present.Total physician intra-service sedation time was 14 minutes. For details on pre moderate sedation and post moderate sedation patient evaluation, please review the evaluation forms in [facility]. For details on monitored clinical parameters during the intra-service sedation time, please review the procedure nurse documentation in [facility]. > Interpreting Provider: Matias Saleh DO on 03/25/2024 2:29 PM Ulices Vides MD IR ORDERABLES * CT Pelvis W Contrast (03/25/2024 7:56 AM CDT) Anatomical Region Laterality Modality Pelvis Computed Tomogra phy 03/25/2024 11:3 7 AM CDT Impressions 03/25/2024 11:42 AM CDT IMPRESSION: Unremarkable CT of the bladder. Fluid collection noted in the anterior abdominal wall likely representing a seroma. Abscess cannot be completely excluded. Please correlate clinically. > Interpreting Provider: Keven Dallas DO on 03/25/2024 11:42 AM Narrative 03/25/2024 11:42 AM CDT PROCEDURE: CT PELVIS W CONTRAST DATE/TIME OF EXAM: 03/25/2024 8:05 AM CLINICAL INFORMATION: None relevant/not provided if blank. Indication: R32: Unspecified urinary incontinence Additional History: COMPARISON: None. TECHNIQUE: CT of the pelvis' was performed utilizing normal protocol. CT dose reduction technique was used, including Automated Exposure Control. IV CONTRAST: None FINDINGS: The bladder is unremarkable. The loops of bowel are normal. The abdominal vasculature is normal. There is a fluid collection in the low anterior abdominal abdominal wall which measures 4.7 x 3.7 x 5.3 cm. This likely represents a seroma. This is located 4.4 cm above the pubic symphysis in the midline. No free fluid free air or abnormal lymph nodes are noted. No osseous lesions are identified. Procedure Note Keven Dallas DO - 03/25/2024 PROCEDURE: CT PELVIS W CONTRAST DATE/TIME OF EXAM: 03/25/2024 8:05 AM CLINICAL INFORMATION: None relevant/not provided if blank. Indication: R32: Unspecified urinary incontinence Additional History: COMPARISON: None. TECHNIQUE: CT of the pelvis' was performed utilizing normal protocol. CT dose reduction technique was used, including Automated ExposureControl. IV CONTRAST: None FINDINGS: The bladder is unremarkable. The loops of bowel are normal. Theabdominal vasculature is normal. There is a fluid collection in the low anterior abdominal abdominal wall which measures 4.7 x 3.7 x 5.3 cm. This likely represents a seroma. This is located 4.4 cm above the pubic symphysis in the midline. No free fluid free air or abnormal lymph nodes are noted.No osseous lesions are identified. IMPRESSION: Unremarkable CT of the bladder. Fluid collection noted in the anterior abdominal wall likely representinga seroma. Abscess cannot be completely excluded. Please correlateclinically. > Interpreting Provider: Keven Dallas DO on 03/25/2024 11:42 AM Matias Saleh MD CT ORDERABLES Care Teams Highway Construction Inspector Relationship Specialty Start Date End Date Kaye Martinez MD [facility] [address] [place] [address] PCP - General Emergency Medicine 01/26/24 Jamal Mendez MD [address] [facility] [address] [id number] Internal Medicine 01/26/24
--- OUTSIDE RECORDS SUMMARY | 2024-08-04 11:39 | XMS_ITS | Clinical Summary ---
Author Organization [facility] Address [address] [place] [id number] Care Team Providers Care Elevator Mechanic Name Role Phone Jeff Cook MD Primary Care Provider [phone] Allergies Active Allergy Reactions Criticality Noted Date [...] 1 tablet (88 mcg total) by mouth extractor machine operator before breakfast 3 Active losartan (COZAAR) [...] by mouth daily before breakfast Active vit C,J-Gt-hqpbc-loulou tein-zeaxan 250-90-40-1 mg capsule Take 1 capsule [...] before that. She has been seeing a Manager Desktop and failed the pessary (couldn't hold it in). She has also been seeing an outside urologist who suggested surgery. She transferred care here to [facility] to have second opinion. Currently there [...] addressing these would be the answer for termination clerk treatment. If this is delayed and patient [...] Administration Dates Next Due Influenza, Unspecified 03/01/2023 Surgical History Surgery Date Site/Laterality Comments BREAST SURGERY HYSTERECTOMY APPENDECTOMY CHOLECYSTECTOMY Medical History Medical History Date Comments Hypertension Hyperlipidemia Fibromyalgia Social History Tobacco Use Types Packs/Day Years [...] on file Legal Sex Female 6:10 PM PIPELINE TECHNICIAN Gender Identity Not on file Sexual Orientation Not on file Obstetrics History Last Filed Vital Signs Vital Sign Reading Time Taken Comments Blood Pressure 123/57 04/29/2023 2:58 AM PIPELINE TECHNICIAN Pulse 80 04/29/2023 3:01 AM PIPELINE TECHNICIAN reche cked Temperature 36.5 C (97.7 F) 04/29/2023 2:58 AM PIPELINE TECHNICIAN Respiratory Rate 19 04/29/2023 8:14 AM PIPELINE TECHNICIAN Oxygen Saturation 95% 04/29/2023 2:58 AM PIPELINE TECHNICIAN Inhaled Oxygen Concentration - - Weight 72.8 kg (160 lb 7.9 oz) 04/16/2023 2:05 P M PIPELINE TECHNICIAN Height 172.7 cm (5' 8) 04/16/2023 2:05 PM PIPELINE TECHNICIAN Body Mass Index 24.4 04/16/2023 2:05 PM PIPELINE TECHNICIAN Plan of Treatment Health Maintenance Due Date Last Done Comments Breast Cancer Screening-Mammogram 1955 Colon Cancer Screening-Colonoscopy 1955 Depression Screening 1955 Hepatitis C Screening 1955 Osteoporosis Screening-Bone Density Scan 1954 Hepatitis B Screening 1972 Well Visit 65+ 11/09/2019 Covid-19 Vaccine (2023-2 5 season) 2024 06/11/2022, 09/23/2021, 04/08/2021, Additional history exists Influenza Vaccine (#1) 2024 , 03/12/2022, 03/13/2021, Additional history exists Fall Risk Assessment 04/29/2024 04/29/2023 DTaP/Tdap/Td Vaccine (2 - Td or Tdap) 08/23/2031 08/22/2021 Zoster Vaccine Completed 09/26/2020, 09/14/2020 Pneumococcal vaccine 65+ Completed 022, 03/12/2022, 03/13/2021, Additional history exists Medical Devices Implanted Type Area Labor Utilization Superintendent Device Identifier Shelf Expiration Date Model / Serial / Lot [employer] Upsylon 35.4cm Elongation Profile Lightweight Large Pore Low [id number] - Sn/A - [id number] Implanted:Qty: 1 on 04/27/2023 by Chinmay Bauer MD at [facility] Mesh N/A: Urethra [employer] [id number] 10/29/2025 [id number] / N/A / [id number] Insurance MEDICARE SOLUTIONS IDPA MEDICARE SOLUTIONS IDPA Advance Directives For more information, please contact: [phone] * Full Code (Latest Code Status on File) Date Activated Date Inactivated Comments 04/27/2023 3:58 PM 04/29/2023 3:59 PM Care Teams Elevator Mechanic Relationship Specialty Start Date End Date Jeff Cook MD [address] [place] [id number] PCP - General Internal Medicine 08/25/22
--- OUTSIDE RECORDS SUMMARY | 2024-08-04 11:40 | XMS_ITS | Continuity of Care Document ---
Author Organization [facility] Address [address] [place] [address] [address] [place] [address] Insurance Providers Payer Plan Claims Address Claims Phone Policy Number Group Number Relation Employer Guarantor Name Guarantor Guarantor Address Guarantor Phone [facility] Custom Care [facility] [employer] m [employer] [address] [address], [place] [address] tel:[phone] Self May Myers [address] [place] [address] [facility] MEDICA RE [place] HC[employer] MEDIC ARE [address] [address], [place] [address] tel:[phone] Self May Myers [address] [place] [address] [id number] [facility] MEDICA RE [place] HCARE MEDIC ARE [address] [address], [place] [address] tel:[phone] Self May Myers [address] [place], [place] [id number] Problems Unknown Problems Results No Results Allergies, adverse reactions, alerts Substance Reaction Date Status Type codeine 04/27/2024 Drug cyclobenzaprine 04/27/2024 Drug baclofen 04/27/2024 Drug Medications No administered medications reported Vital Signs Date Vital Result Comment 06/30/2024 Inhaled Oxygen Concentration 21.0 % N Temperature 98.1 [degF] N Oxygen Saturation 94 % N Respiratory Rate 16 /min N Heart Rate 80 /min N Blood Pressure Systolic 120 mm[Hg] N Blood Pressure Diastolic 66 mm[Hg] N Body Height 68 [in_i] N Body Weight 161 [lb_av] N Body Mass Index 24.5 kg/m2 N 07/19/2024 Inhaled Oxygen Concentration 21.0 % N Temperature 97.3 [degF] N Oxygen Saturation 94 % N Respiratory Rate 16 /min N Heart Rate 88 /min N Blood Pressure Systolic 126 mm[Hg] N Blood Pressure Diastolic 74 mm[Hg] N Body Height 68 [in_i] N Body Weight 161 [lb_av] N Body Mass Index 24.5 kg/m2 N Social History No smoking Hx information available Functional Status Category Condition Date Problem (Toilet use: Indepen dent (on and off, dressing, wiping)) Toilet use: Independent (on and off, dressing, wiping) 07/06/2024 Problem (Feeding: Independent) Feeding: Independ ent 07/06/2024 Problem (Total score: 70) Total score: 70 2024 Problem (Grooming: Independe nt face/hair/teeth/ shaving (implements provided)) Grooming: Independent face/hair/teeth/ shaving (implements provided) 07/06/2024 Problem (Transfers (bed to c hair and back): Independent) Transfers (bed to chair and back): Independent 07/06/2024 Problem (Mobility (on level surfaces): Wheelchair independent, including corners, >50 yards) Mobility (on level surfaces): Wheelchair independent, including corners, >50 yards 07/06/2024 Problem (Bathing: Independen t (or in shower)) Bathing: Independent (or in shower) 07/06/2024 Problem (Bowels: Continent) Bowels: Continent Problem (Bladder: Incontinen t, or catheterized and unable to manage alone) Bladder: Incontinent, or catheterized and unable to manage alone 07/06/2024 Problem (Dressing: Independe nt (including buttons, zips, laces, etc.)) Dressing: Independent (including buttons, zips, laces, etc.) 07/06/2024 Problem (Stairs: Unable) Stairs: Unable 025 Mental Status Category Condition Date Cognitive function Normal 07/19/2024
--- OUTSIDE RECORDS SUMMARY | 2024-08-04 11:40 | XMS_ITS | Clinical Summary ---
Author Organization [facility] Address [address] [place] [address] Care Team Providers Care Computer Game Tester Name Role Phone Kaye Martinez MD Primary Care Provider [phone] Allergies Active Allergy Reactions Criticality Noted Date Comments Baclofen Other (see comment),Hives,Unknown Medium 06/17/2023 Reaction: HIVES Codeine Unknown,Other (see comment) High 02/16/20 21 Cyclobenzaprine Unknown,Syncope High 09/09/2022 Oxybutynin Other (see comment) Low 04/16/2023 Fainting Tolterodine Dizziness Low 02/26/2023 Medications acetaminophen (TYLENOL) 500 MG tablet Take 2 tablets (1,000 mg total) by mouth every 6 (six) hours as needed. Active ammonium lactate (LAC-HYDRIN) 12 % lotion APPLY TOPICALLY TO FEET TWICE DAILY NEEDED 02/11/20 Active vitamin C (ASCORBIC ACID) 500 MG tablet Take 1 tablet (500 mg total) by mouth daily. Active aspirin EC (ECOTRIN) 81 MG tablet Take 1 tablet (81 mg total) by mouth daily. Active Biotin 1 MG Cap Take 1 mg by mouth daily. Active Calcium Carb-Cholecalc iferol 500-10 MG-MCG Tab Take 2 tablets every day by oral route as directed for 30 days. 07/01/19 23 Active CHOLECALCIFERO L 1.25 mg capsule TAKE ONE CAPSULE BY MOUTH EVERY WEEK DIRECTED . Active dicyclomine (BENTYL) 10 MG capsule TAKE 1 CAPSULE BY MOUTH TWICE DAILY 30 MINUTES BEFORE FOOD. MAY INCREASE TO 4 TIMES DAILY NEEDED Active Docusate Sodium (DSS) 100 MG Cap Take 100 mg by mouth. 04/29/20 23 Active gabapentin (NEURONTIN) 600 MG tablet take 1 tablet by mouth three times daily as directed Active levothyroxine (SYNTHROID) 88 MCG tablet Take 1 tablet (88 mcg total) by mouth daily. 08/08/19 23 Active liothyronine (CYTOMEL) 5 MCG Tab TAKE 1 TABLET BY MOUTH EVERY DAY BEFORE A MEAL Active losartan (COZAAR) 100 MG tablet Take 1 tablet (100 mg total) by mouth daily. 08/17/19 23 Active loratadine (CLARITIN) 10 MG tablet Take 1 tablet (10 mg total) by mouth every morning. Active lysine 500 MG tablet Take 1 tablet (500 mg total) by mouth 2 (two) times daily. Active metFORMIN (GLUCOPHAGE) 500 MG tablet Take 1 tablet (500 mg total) by mouth 2 (two) times daily. Active nystatin (MYCOSTATIN) cream Apply topically 2 (two) times daily. Active omega-3 acid (LOVAZA) 1 GM capsule TAKE 2 CAPSULES BY MOUTH TWICE DAILY AFTER MEALS Active oxyCODONE immediate release (ROXICODONE) 5 MG immediate release tablet Take 1 tablet (5 mg total) by mouth every 4 (four) hours as needed. 04/29/20 23 Active pramipexole (MIRAPEX) 0.5 MG tablet TAKE 1 TABLET BY MOUTH THREE TIMES DAILY( EVERY 8 HOURS) 04/24/20 23 Active senna-docusate (SENOKOT-S) 8.6-50 MG tablet Take 1 tablet by mouth daily. Active tolterodine LA (DETROL LA) 4 MG 24 hr capsule Active trospium chloride ER 60 MG CAPSULE SR 24 HR capsule 09/10/19 23 Active vitamin E (E200) 90 MG (200 UNIT) capsule Take 1 capsule (200 Units total) by mouth daily. Active sodium bicarbonate 325 MG tablet Take 1 tablet (325 mg total) by mouth every other day. NEW DOSE 90 tablet 1 06/17/19 24 Active fish oil (OMEGA-3 FATTY ACID) 1000 MG Cap capsule Take 1 capsule (1,000 mg total) by mouth 2 (two) times daily. 11/24/19 24 Active traMADol (ULTRAM) 50 MG tablet Take 1 tablet (50 mg total) by mouth 3 (three) times daily as needed. 11/24/19 24 Active albuterol sulfate HFA 108 (90 Base) MCG/ACT inhaler Inhale 2 puffs into the lungs every 4 (four) hours as needed. Active UltiCare Alcohol Swabs 70 % Pads USE TO CHECK BLOOD SUGAR ONCE DAILY 11/16/19 Active doxycycline monohydrate 100 MG capsule TAKE 1 CAPSULE BY MOUTH TWICE DAILY FOR 7 DAYS 01/25/20 Active montelukast (SINGULAIR) 10 MG tablet Take 1 tablet (10 mg total) by mouth daily. 01/25/20 Active amLODIPine (NORVASC) 5 MG tablet TAKE 1 TABLET BY MOUTH EVERY EVENING ALONG WITH( 2.5 MG) IN THE EVENING DAILY. TOTAL 7.5 MG NEW DOSE 90 tablet 02/22/20 Active STIOLTO RESPIMAT 2.5-2.5 MCG/ACT inhaler Inhale 2 puffs into the lungs daily. Active amLODIPine (NORVASC) 10 MG tablet Take 1 tablet (10 mg total) by mouth every evening. NEW DOSE 07/27/2024 OV 90 tablet 1 07/27/19 Active predniSONE 10 MG (21) Tablet Therapy Pack FOLLOW PACKAGE DIRECTIONS 01/25/20 025 Discontinued atorvastatin (LIPITOR) 20 MG tablet TAKE 1 TABLET BY MOUTH EVERY DAY 30 tablet 04/18/20 025 Discontinued amLODIPine (NORVASC) 2.5 MG tablet TAKE 1 TABLET(2.5 MG TOTAL) BY MOUTH DAILY IN THE EVENING(ALONG WITH 5 MG DAILY IN THE EVENING. TOTAL 7.5 MG NEW DOSE) 30 tablet 04/18/20 24 025 Discontinued(Re order) Active Problems Problem Noted Date Diagnosed Date Precordial chest pain 05/20/2024 Coronary artery calcification 05/20/2024 PAD (peripheral artery disease) 06/17/2023 Dyspnea on exertion 07/24/2022 Carotid atherosclerosis 08/22/2021 Obstructive sleep apnea syndrome 08/22/2021 Chest pain 05/09/2021 Edema of lower extremity 01/29/2021 Essential hypertension 05/17/2019 Hyperlipidemia 05/17/2019 Encounters Date Type Department Care Team Description 07/27/2024 12:45 PM AMBULATORY SERVICE REPRESENTATIVE Office Visit [facility] [address] [address] Ana Corrales MD Peripheral Vascular Disease (10 mo follow up) 07/27/2024 Travel 05/19/2024 9:20 AM AMBULATORY SERVICE REPRESENTATIVE - 05/19/2024 11:59 PM AMBULATORY SERVICE REPRESENTATIVE Hospital Encounter [facility] [place] [address] Ana Corrales MD Discharge Disposition: Home or Self Care (Routine Discharge) 05/19/2024 Travel from Last 3 Months Family History Relation Status Comments Brother 1 Alive Brother 2 Alive Father Mother (Age 67) Sister 1 Alive Sister 2 Alive Social History Tobacco Use Types Packs/Day Years Used Date Smoking Tobacco: Every Day Cigarettes Smokeless Tobacco: Never Tobacco Cessation:Ready to Q uit: Not Asked; Counseling Given: Not Answered Alcohol Use Standard Drinks/Week Comments Not Currently 0 (1 standard drink = 0.6 oz pur e alcohol) Comments Unknown Sex and Gender Information Value Date Recorded Sex Assigned at Not on file Legal Sex Female 7:40 PM CDT Gender Identity Not on file Sexual Orientation Not on file Last Filed Vital Signs Vital Sign Reading Time Taken Comments Blood Pressure 138/60 07/27/2024 1:35 PM AMBULATORY SERVICE REPRESENTATIVE BARBARA EN BY Pulse 93 07/27/2024 1:02 PM AMBULATORY SERVICE REPRESENTATIVE Temperature 36.5 C (97.7 F) 02/10/2024 9:35 AM CDT Respiratory Rate - - Oxygen Saturation 93% 07/27/2024 1:02 PM AMBULATORY SERVICE REPRESENTATIVE Inhaled Oxygen Concentration - - Weight 77.1 kg (170 lb) 07/27/2024 1:02 PM AMBULATORY SERVICE REPRESENTATIVE Height 172.7 cm (5' 8) 07/27/2024 1:02 PM AMBULATORY SERVICE REPRESENTATIVE Body Mass Index 25.85 07/27/2024 1:02 PM AMBULATORY SERVICE REPRESENTATIVE Plan of Treatment Upcoming Encounters Date Type Department Care Team (Late st Contact Info) Description 09/30/2024 10:30 AM CDT Office Visit [facility], [place] [place] [address] Indira Preciado PA-C [address] [facility], [address] [place] [address] Health Maintenance Due Date Last Done Comments ASCVD Statin 1955 Colorectal Cancer Screening Colonoscopy (10 Years) 1955 Hepatitis C 1972 Mammogram Screening 1994 RSV Immunization or 60+ Years (1 - Risk 60-74 years 1-dose series) 2014 Annual Medicare Wellness Visit 11/09/2019 Dexa Scan (General) 11/09/2019 ASCVD LDL 09/17/2022 09/17/2021 COVID-19 Vaccine ( season) 2024 04/12/2023, 06/11/2022, 09/23/2021, Additional history exists PHQ-2 (Physician [place]) 06/01/2024 DTaP, Tdap and Td Vaccines (2 - Td or Tdap) 08/23/2031 08/22/2021 Pneumococcal Vaccine: 65+ Years Completed 04/12/2023, 04/30/2022, 03/12/2022, Additional history exists Zoster Vaccines Completed 04/12/2023, 08/31, 09/14/2020 Influenza Adult Completed 02/26/2024, 06/2022, 03/12/2022, Additional history exists Meningococcal B Vaccine Aged Out No l onger eligible based on patient's age to complete this topic Meningococcal Vaccine Aged Out No jocelyne ryan eligible based on patient's age to complete this topic RSV Immunizations Under 20 Months Aged Out No longer eligible based on patient's age to complete this topic Procedures Procedure Name Priority Date/Time Associated Diagnosis Comments USV ART REST W MAYTE LOW EXT Routine 05/19/2024 10:46 AM AMBULATORY SERVICE REPRESENTATIVE Essential hypertension Coronary artery calcification PAD (peripheral artery disease) ([facility]) LIPID PANEL Routine 09/17/2021 from Last 3 Months or Most Recently Relevant to Health Maintenance Results * USV ART REST W MAYTE LOW EXT (05/19/2024 10:46 AM AMBULATORY SERVICE REPRESENTATIVE) Anatomical Region Laterality Modality Extremity Vascular Ultraso und 05/19/2024 9:54 AM AMBULATORY SERVICE REPRESENTATIVE Narrative 05/19/2024 8:58 PM AMBULATORY SERVICE REPRESENTATIVE ARTERIAL DOPPLER - MAYTE BILATERAL LOWER EXTREMITY VASCULAR LAB Pat.Name: RITIKA MYERS Pat.ID: [id number] .Date: 05/19/2024 Refer.MD: Misa Mason Exam Time: 9:54:00 AM Study Type:QUIQUE VS Arterial Doppler Legs RHONDA Height: 68 in Age: 6 1955,68Y Sex: F [facility] Pat. Stat.:Outpatient History / Clinical:PVD by ordering provider Hypertension, COPD, Smoker, Hypothyroidism Procedures: Doppler waveforms, Digit PPG, Systolic Pressures w/MAYTE Race: W ++++++++++++++++++++++++++++++++++++ SUMMARY: ++++++++++++++++++++++++++++++++++++ Elvia MAYTE Criteria: >1.30 = falsely elevated, calcified vessels; 1.00-1.29 = no signif ischemia at rest ; .80-.99 = mild PAD, asymptomatic; .50-.79 = moderate PAD, claudication; <.50 = severe PAD, rest pain; <.30 = critical PAD, necrosis, poor healing (Digits: DBI >.60 Normal; <.60 Abnormal) (Positive Stress eval: MAYTE decrease of >.20 or >20% pressure drop) Right leg: Common Femoral waveform is triphasic, high amplitude; Popliteal triphasic, high amplitude; Posterior Tibial biphasic, medium amplitude with MAYTE 0.836 ; DP/Anterior Tibial retrograde, multiphasic with MAYTE 0.651 ; Peroneal biphasic, high amplitude with MAYTE 0.75 . Digit flow by PPG is present with DBI 0.404 . Left leg: Common Femoral waveform is biphasic, high amplitude; Popliteal biphasic, high amplitude; Posterior Tibial monophasic, medium amplitude with MAYTE 0.589 ; DP/Anterior Tibial monophasic, low amplitude with MAYTE 0.637 . Digit flow by PPG is present with DBI 0.308 . CONCLUSION: MAYTE right leg 0.84, with toe index 0.404 , in the range of mild ischemia, asymptomatic PAD. Waveforms suggestive of infrageniculate disease. MAYTE left leg 0.64, with toe index 0.308 , in the range of moderate ischemia, claudication. Waveforms suggestive of iliac disease, infrageniculate disease. Recommend follow up in 6 months or as symptoms warrant. ++++++++++++++++++++++++++++++++++++ MEASUREMENTS: ++++++++++++++++++++++++++++++++++++ PRESSURES Right Brachial Brach P 135 mmHg Right Ankle DP AnkleDP P 95 mmHg Right Ankle PT AnklePT P 122 mmHg Right Great Toe GreatToe P 59 mmHg Right MAYTE PT MAYTE PT 0.836 Right MAYTE DP MAYTE DP 0.651 Right TBI TBI 0.404 Left Brachial Brach P 146 mmHg Left Ankle DP AnkleDP P 93 mmHg Left Ankle PT AnklePT P 86 mmHg Left Great Toe GreatToe P 45 mmHg Left MAYTE PT MAYTE PT 0.589 Left MAYTE DP MAYTE DP 0.637 Left TBI TBI 0.308 <Electronic Signature> 05/19/2024 08:58 PM Ana Corrales M.D. Procedure Note Ana Corrales MD - 05/19/2024 ARTERIAL DOPPLER - MAYTE BILATERAL LOWER EXTREMITY VASCULAR LAB Pat.Name: RITIKA MYERS Pat.ID: [id number] .Date: 05/19/2024 Refer.MD: Misa Mason Exam Time: 9:54:00 AM Study Type:QUIQUE VS Arterial Doppler Legs RHONDA Height: 68 in Age: 6 1955,68Y Sex: F Sonogrphr: Violet Dey RVT Pat. Stat.:Outpatient History / Clinical:PVD by ordering provider Hypertension, COPD, Smoker, Hypothyroidism Procedures: Doppler waveforms, Digit PPG, Systolic Pressures w/MAYTE Race: W ++++++++++++++++++++++++++++++++++++ SUMMARY: ++++++++++++++++++++++++++++++++++++ Elvia MAYTE Criteria: >1.30 = falsely elevated, calcified vessels; 1.00-1.29 = no signif ischemia at rest ; .80-.99 = mild PAD, asymptomatic; .50-.79 = moderate PAD, claudication; <.50 = severe PAD, rest pain; <.30 = critical PAD, necrosis, poor healing (Digits: DBI >.60 Normal; <.60 Abnormal) (Positive Stress eval: MAYTE decrease of >.20 or >20% pressure drop) Right leg: Common Femoral waveform is triphasic, high amplitude; Popliteal triphasic, high amplitude; Posterior Tibial biphasic, medium amplitude with MAYTE 0.836 ; DP/Anterior Tibial retrograde, multiphasic with MAYTE 0.651 ; Peroneal biphasic, high amplitude with MAYTE 0.75 . Digit flow by PPG is present with DBI 0.404 . Left leg: Common Femoral waveform is biphasic, high amplitude; Popliteal biphasic, high amplitude; Posterior Tibial monophasic, medium amplitude with MAYTE 0.589 ; DP/Anterior Tibial monophasic, low amplitude with MAYTE 0.637 . Digit flow by PPG is present with DBI 0.308 . CONCLUSION: MAYTE right leg 0.84, with toe index 0.404 , in the range of mild ischemia, asymptomatic PAD. Waveforms suggestive of infrageniculate disease. MAYTE left leg 0.64, with toe index 0.308 , in the range of moderate ischemia, claudication. Waveforms suggestive of iliac disease, infrageniculate disease. Recommend follow up in 6 months or as symptoms warrant. ++++++++++++++++++++++++++++++++++++ MEASUREMENTS: ++++++++++++++++++++++++++++++++++++ PRESSURES Right Brachial Brach P 135 mmHg Right Ankle DP AnkleDP P 95 mmHg Right Ankle PT AnklePT P 122 mmHg Right Great Toe GreatToe P 59 mmHg Right MAYTE PT MAYTE PT 0.836 Right MAYTE DP MAYTE DP 0.651 Right TBI TBI 0.404 Left Brachial Brach P 146 mmHg Left Ankle DP AnkleDP P 93 mmHg Left Ankle PT AnklePT P 86 mmHg Left Great Toe GreatToe P 45 mmHg Left MAYTE PT MAYTE PT 0.589 Left MAYTE DP MAYTE DP 0.637 Left TBI TBI 0.308 <Electronic Signature> 05/19/2024 08:58 PM Ana Corrales M.D. Ana Corrales MD [facility] Final Result * (ABNORMAL) LIPID PANEL (09/17/2021) CHOLESTEROL 181 100 - 199 HDL 50 40 - 70 TRIGLYCERIDES 226(A) 0 - 149 LDL (CALCULATED) 93 0 - 99 VLDL CALCULATION 38 5 - 40 09/17/2021 Default History Genericprovider LABORATORY Final Result from Last 3 Months or Most Recently Relevant to Health Maintenance Insurance MEDICAID DEPT OF [address] Care Teams Computer Game Tester Relationship Specialty Start Date End Date Kaye Martinez MD [address] [place] [phone] PCP - General EMERGENCY MEDICINE 08/31/23
--- OUTSIDE RECORDS SUMMARY | 2024-08-04 11:40 | XMS_ITS | Encounter Summary ---
Author Organization [facility] Health Address [address] [place] [address] Care Team Providers Care Scudding Inspector Name Role Phone Jamal Mendez MD Unavailable [phone] Kaye Martinez MD Primary Care Provider [phone] Reason for Referral * Consultation (Routine) - Open Specialty Diagnoses / Procedures Referred By Contorlando t Referred To Contact Diagnoses Urinary incontinence, unspecified type Ulices Vides MD [address] [place] [address] Referral ID Status Reason Start Date Expiration Date V isits Requested Visits Authorized [id number] Open Specialty Services Required 08/01/2024 08/01/2025 1 1 Scheduling Instructions Complex incontinence. Hx of POP surgery at [facility] but wants to followup at [facility]. [facility] * Evaluate & Treat (Routine) - Open Specialty Diagnoses / Procedures Referred By Brenda t Referred To Contact Obstetrics and Gynecology Diagnoses Malignant neoplasm of uterus, unspecified site (HCC) Ulices Vides MD [address] [place] [address] Erica Singleton MD [address] [facility] [address] [place] [address] Referral ID Status Reason Start Date Expiration Date V isits Requested Visits Authorized [id number] Open Specialty Services Required 08/01/2024 08/01/2025 1 1 Scheduling Instructions Hx partial hysterectomy for uterine cancer. Needs folllwup. [facility] Reason for Visit * Reason Comments Establish Care Encounter Details Date Type Department Care Team (Late st Contact Info) Description 07/29/2024 10:00 AM [facility] Clinical Support [facility] - Urology [address] [place] [phone] Ulices Vides MD [address] [facility] [address] [facility] [place] [address] Dysuria ; Malignant neoplasm of uterus, unspecified site (HCC); Urinary incontinence, unspecified type Social History Tobacco Use Types Packs/Day Years [...] and heating? Not hard at all 05/22/2024 [facility] - Occupational Stress [...] any time in the past 12 m [facility], were you homeless or living in a detention (including now)? No 05/22/2024 Sex and Gender Information Value Date Recorded Sex Assigned at Not on file Gender Identity Not on file Sexual Orientation Not on file documented as of this encounter Last Filed Vital Signs Vital Sign Reading Time Taken Comments Blood Pressure 144/69 07/29/2024 9:50 AM [facility] Pulse 99 07/29/2024 9:50 AM [facility] Temperature 36.1 C (97 F) 07/29/2024 9:50 AM [facility] Respiratory Rate - - Oxygen Saturation 90% 07/29/2024 9:50 AM [facility] Inhaled Oxygen Concentration - - Weight 74.4 kg (164 lb) 07/29/2024 9:50 AM [facility] Height 172.7 cm (5' 8) 07/29/2024 9:50 AM [facility] Body Mass Index 24.94 07/29/2024 9:50 AM [facility] documented in this encounter Functional Status Functional Status Response [...] No 05/22/2024 documented as of this encounter Progress Notes * Ulices Vides MD - 07/29/2024 10:00 AM CST [facility] Division of Urologic Surgery Ulices Vides MD Date of Visit: 07/29/2024 Patient Name: May Myers : 1955 Medical Record: [id number] (home) [phone] (work) Age: [age] year old Sex: female Referring Provider: No referring provider defined for this encounter. Chief Complaint/Reason for Visit: No chief complaint on file. Review of Systems: Pertinent positive/negative systems are noted above. A 10-point ROS was reviewed during this clinic visit. Past Medical History: Past Medical History: Diagnosis Date Back pain Cervical radiculopathy Depression Disorder of thyroid Diverticulitis Essential (primary) hypertension IBS (irritable bowel syndrome) Knee pain Migraine Neuropathy Osteoarthritis Restless leg Shoulder pain Sleep apnea Type 2 diabetes mellitus (HCC) Past Surgical History: Past Surgical History: Procedure Laterality Date Appendectomy Cholecystectomy Hysterectomy, Total Abdominal 1985 Current Medications: Current Outpatient Medications Medication Sig Dispense Refill acetaminophen (Tylenol) 500 MG tablet Take 2 (two) tablets by mouth 3 times daily as needed for Fever or Pain Maximum allowable Acetaminophen amount = 4 Grams (4000 mg) / 24 hours. albuterol HFA (Proventil; Ventolin; Proair) 108 (90 Base) MCG/ACT inhaler Inhale 2 (two) puffs by mouth every 6 hours as needed for Wheezing, Shortness of Breath or Cough amLODIPine (Norvasc) 5 MG tablet Take 1.5 (one and one-half) tablets by mouth once daily aspirin (Aspirin) 81 MG chew tablet Take 1 (one) tablet by mouth once daily atorvastatin (Lipitor) 20 MG tablet Take 1 (one) tablet by mouth at bedtime HOLD atorvastatin whiletaking daptomycin antibiotic. Resume atorvastatin after daptomycin complete. Calcium Carb-Cholecalciferol 600-10 MG-MCG Take 1 (one) tablet by mouth 2 times daily fish oil/omega-3 fatty acids (Promega;Cardi-[place] 3) 1000 MG capsule Take 2 (two) capsules by mouth2 times daily with morning and evening meal gabapentin (Neurontin) 600 MG tablet Take 1 (one) tablet by mouth 3 times daily levothyroxine (Synthroid) 88 MCG tablet Take 1 (one) tablet by mouth daily before breakfast liothyronine (Cytomel) 5 MCG tablet Take 1 (one) tablet by mouth once daily loratadine (Claritin) 10 MG tablet Take 1 (one) tablet by mouth once daily metFORMIN (Glucophage) 500 MG tablet TAKE 1 TABLET BY MOUTH EVERY MORNING AND 2 TABLETS IN THE AFTERNOON. montelukast (Singulair) 10 MG tablet Take 1 (one) tablet by mouth at bedtime ihtka-8-tpcz ethyl esters (Lovaza) 1 g capsule Take 2 (two) capsules by mouth 2 times daily pramipexole (Mirapex) 0.5 MG tablet Take 1 (one) tablet by mouth 3 times daily Stiolto Respimat 2.5-2.5 MCG/ACT INHALE 2 PUFFS BY MOUTH EVERY DAY traMADol (Ultram) 50 MG tablet Take 1 (one) tablet by mouth 3 times daily as needed For pain. vitamin D3 (Cholecalciferol) 25 MCG (1000 UNITS) tablet Take 2 (two) tablets by mouth 2 times daily vitamin E (Tocopheryl) 1000 UNIT capsule Take 1 (one) capsule by mouth once daily No current facility-administered medications for this visit. Allergies: Cyclobenzaprine, Codeine, Baclofen, and Tolterodine Family History: No family history on file. Family history is non-contributory unless otherwise indicated. Social History: Social History Socioeconomic History Marital status: Spouse name: Not on file Number of children: Not on file Years of education: Not on file Highest education level: Not on file Occupational History Not on file Tobacco Use Smoking status: Every Day Current packs/day: 0.50 Types: Cigarettes Smokeless tobacco: Never Vaping Use Vaping status: Every Day Substance and Sexual Activity Alcohol use: Not Currently Drug use: Not Currently Sexual activity: Not Currently Other Topics Concern Not on file Social History Narrative Not on file Social Determinants of Health Financial Resource Strain: Low Risk (05/22/2024) Overall Financial Resource Strain (CARDIA) Difficulty of Paying Living Expenses: Not hard at all Food Insecurity: No Food Insecurity (05/22/2024) Hunger Vital Sign Worried About Running Out of Food in the Last Year: Never true Ran Out of Food in the Last Year: Never true Transportation Needs: No Transportation Needs (05/22/2024) PRAPARE - Transportation Lack of Transportation (Medical): No Lack of Transportation (Non-Medical): No Stress: No Stress Concern Present (05/22/2024) [facility] - Occupational Stress Questionnaire Feeling of Stress : Only a little Housing Stability: Low Risk (05/22/2024) Housing Stability Vital Sign Unable to Pay for Housing in the Last Year: No Number of Times Moved in the Last Year: 0 Homeless in the Last Year: No Physical Exam: Vital Signs: There were no vitals filed for this visit. General: alert, in no acute distress Cardiovascular: well perfused Respiratory: non labored Psych: appropriate mood and affect, facial expression appropriate to situation Musculoskeletal: grossly normal Neurologic: grossly normal Suprapubic catheter change The patient's suprapubic site was prepped with Betadine. A suprapubic tube was cut and a wire was fed through into the bladder. The old suprapubic tube was removed. The wire was kept in place. The site was prepped again with Betadine. A new 14 Czech suprapubic tube was placed. A 16 Czech was attempted but this was unable to fit into the tract. The balloon was inflated to 10 cc. The suprapubic tube irrigated well. Urine was clear. The clinic did not have 14F pamunkey tip so the wire was fed through standard 14F via modified sterile technique. Labs Lab Results Component Value Date GLUCOSEUR - 05/17/2024 BILIRUBINUR Negative 05/21/2024 KETONESU - 05/17/2024 SPECGRAV 1.015 05/17/2024 NITRITE Positive 05/21/2024 WBCUR 2+ 05/17/2024 Recent Labs Component Name 06/26/24 02505/21/24 1341 COLORU - Yellow CLARITYU - Cloudy* LABSPEC - 1.025 PROTEINU - 2+* GLUCOSERUR - Negative KETONES - 1+* BILIRUBINUR - Negative BLOODU - Trace* NITRITE - Positive* LEUKOCYTE - 3+* UROBILINUA Normal Negative RBCUA >100* 11-20* WBCU - >100* SQUAMOUS None Seen 0-2 Recent Labs Component Name 06/26/24 0251 05/21/24 1341 COLORU - Yellow CLARITYU - Cloudy* LABSPEC - 1.025 PROTEINU - 2+* GLUCOSERUR - Negative KETONES - 1+* BILIRUBINUR - Negative BLOODU - Trace* NITRITE - Positive* LEUKOCYTE - 3+* UROBILINUA Normal Negative RBCUA >100* 11-20* WBCU - >100* SQUAMOUS None Seen 0-2 No results found for: PSA Recent Labs Component Name 06/28/24 0432 06/27/24 0413 06/26/24 0430 CREATININE 0.64 0.65 0.64 EGFR >90 >90 >90 History of Present Illness: May Myers is a 68 year old female being seen today for sp SPT Prior notes: Hx of sacrocolpopexy with mesh placement by Dr. Bauer at [facility] 04/27/23. She reports that she has been having worsening incontinence recent. She does have leakage of urine with laugh, cough, and sneeze. She does report that previously she could not tell when she was urinating on herself but has startedhaving urgency again. Reviewing her previous urine test results, she had urine culture 08/2022: clinically insignificant growth 09/2022: E coli (>100,000) and Proteus (1000 colonies) 11/05/2022: Proteus mirabilis (>100,000) She states she has continuous urinary incontinence and that this is severely debilitating to her and affecting her skin in her perineum. She is quite distressed by this. Based on the urodynamics, laureen is likely poorly contractile or acontractile based on the tracings. Discussed options. She does not want to discontinue any catheterization, and is quite debilitated in a wheelchair and is unable to do that herself. She indicated to me that she strongly desires to have a suprapubic tube. Discussed that suprapubic tube does increase her risk of urinary infections and it is a chronic foreign object in her body, however given her poor quality of life with her continuous urinary incontinence, she would strongly desire to have the suprapubic tube placed to see if it would work for her. Discussed risk of the procedure including bowel injury, bleeding, pain. Discussed that it will need to be changed every 3 to 4 weeks. Discussed that her first change should be done with urology in the uro logy clinic. She verbalized understanding of all this and would like to proceed. She has a history of microscopic hematuria, but no history of gross hematuria. The urinalysis on 05/2023 showed no blood. No hx gross hematuria. Last UTI was last year UA 05/2023 no blood Had ruptured appendix Hx partial hysterectomy for cancer. Dr. Bauer performed vaginal vault prolapse surgery No vaginal bleeding or spotting since she recovered from sacrocolpoxy. Interval history: 07/29/2024 Since 2021 was placed on 03/25/[address] Saleh from IR, she was doing fine for dysuria, but recently has bladder pain sent for urinary tract infection. He was admitted to hospital for treatment. CTscan from outside hospital also showed an incidental fluid collection that appears to be in the subcutaneous space. She has pain at site of fluid collection, Still has some incontinence with SPT, though it is less. She understood before IR placement of SPT that this may happen but she still wanted the SPT. Patient's lab values and radiology images noted in this report were personally reviewed by me, unless otherwise indicated. Interval history: 07/29 She had her fluid collection drained She presented recently for a suprapubic tube change, and was found to have been incorrectly flushing her suprapubic tube through the balloon port, and as a result she popped the balloon and had to have a cystoscopy to have the balloon fragments removed from the bladder. See procedure note in July 14, 2024. She is presenting today for a suprapubic tube change and to follow-up on her urologic issues. She is still leaking through the urine despite the suprapubic tube. The leakage is less however. Date of procedure 07/29/2024 Urologic Surgery suprapubic catheter change note Date of Operation: 07/29 Preoperative Diagnosis: Incontinence Postoperative Diagnosis: same Surgeon: Ulices Vides MD Resident(s): alejandro RN: Leandress Procedure Performed: 1) Cystoscopy Findings: 1) see below Implant/Drains: New suprapubic tube Specimen(s): Fungal culture and urine culture Estimated Blood Loss: minimal Complications: none Indications for Operation: May Myers is a 68 year old female undergoing suprapubic tube change due to a history of incontinence. Procedure in Detail: The patient was properly identified and procedure was defined. The risks and benefits of the procedure were discussed with the patient/family, and informed consent was obtained. A time out was performed to ensure the properpatient, proper procedure, and the administration of any preoperative antibiotics. The patient's old suprapubic tube was removed. The suprapubic tube tract was prepped in a sterile fashion and lubricated with sterile jelly. Initial attempt was made to place a 14 Czech suprapubic tube through the tract, however this was difficult to advance. A wire was then fed through the tract.Under wire guidance, day 14 Czech catheter was able to be advanced through the tract into the bladder with return of clear yellow urine. The balloon was inflated to 10 mL. The suprapubic tube catheter was secured. IUlices MD, was present during the entire procedure. Assessment and Recommendations: Fluid collection in subcutaneous space, now with pain at site - This has not been drained and follow-up abscessogram/tube check showed resolution of the fluid collection. Urinary incontinence in setting of poorly contractile/acontractile bladder history of vaginal vault prolapse surgery with Dr. Bauer. I offered her opportunity to followup with Dr. Bauer but she would like to stay in [facility] system. -Suprapubic tube changed today on 07/29/2024 under wire guidance, upsized to 14 Czech -she has a postop abdominal fluid collection that as aspirated by IR (see note) - culture concern for abscess, treated w abx (still on IV treatment). -Discussed various options for incontinence. She is in a difficult situation. I will investigate ifpossible to do a trial of intravesical Botox in the clinic. If this is possible, we can try this and she is on board with the plan. If not possible, would be hesitant to take her to the operating room for a procedure without first* having her see urogynecology to fully discuss her surgical optionsprior to giving her anesthetic. -Referral to urogynecology at [facility] to see if she has additional options as she is incompletely dry. Hx partial hysterectomy for cancer per OSH records. -will need followup -referral made to gyne onc History of microscopic hematuria -UA 05/2023 without blood -She has cystoscopy on 07/14/2023-showed no tumors in the bladder or urethra. There is no trabeculation noted per the procedure note. - CT abdomen pelvis with contrast scheduled on 08/05/2024, we will follow-up on results. Ulices Vides MD Division of Urologic Surgery [facility] In addition to cystoscopy, additional time was spent discussing with the patient the aforementionedissues including examination, counseling, assessment, coordination of care, ordering labs, imaging,consultations, communication with other providers. [id number] ADDENDUM 08/03/[address] Singleton patient can followup with general OBGYN for her uterine cancer as it was treated 30+ years ago per patient with partial hysterectomy. We are able to do cysto w botox injection in bladder in clinic - she is scheduled with Dr. Sanchesoin August. [facility] documented in this encounter Plan of Treatment Upcoming Encounters Date Type Department Care Team (Late st Contact Info) Description 08/05/2024 3:00 PM [facility] Appointment [facility] Health Imaging Services - CT Scan [address] [facility] [place] [address] Case Monterroso MD [facility] [place] [address] 08/16/2024 9:00 AM CDT Office Visit [facility] [address] [place] [phone] Mary Mac Che, MD [address] [facility] [address] [place] [phone] 09/08/2024 1:00 PM CDT Procedure visit [facility] - Urology [address] [facility] [address] [place] [phone] Bette Allred M, DO [address] [place] [phone] Pending Results Name Type Priority Associated Diagnoses Date /Time CULTURE FUNGUS OTHER+FUNGUS SMEAR Microbiology Routine Dysuria 07/29/2024 3:45 PM [facility] Scheduled Orders Name Type Priority Associated Diagnoses Orde r Schedule PROC CYSTOURETHROSCOPY Procedures Routine Urinary incontinence, unspecified type Ordered: 08/01/2024 Scheduled Referrals Name Type Priority Associated Diagnoses Order Schedule Ref to [facility] - [place] [address] Outpatient Referral Routine Malignant neoplasm of uterus, unspecified site (HCC) 1 Occurrences starting 08/01/2024 until 08/01/2025 AMB REFERRAL TO UROGYNECOLOGY Outpatient Referral Routine Urinary incontinence, unspecified type 1 Occurrences starting 08/01/2024 until 08/01/2025 documented as of this encounter Procedures Procedure Name Priority Date/Time Associated Diagnosis Comments CULTURE FUNGUS OTHER+FUNGUS SMEAR Routine 07/29/2024 3:45 PM [facility] Dysuria documented in this encounter Results * CULTURE URINE (07/29/2024 3:51 PM [facility]) Culture Urine No growth (<100 CFU/mL) SHIMA 07/31/2024 2:35 AM [facility] MICROBIOLOG[facility] Urine URINE SPECIMEN OBTAINED BY CLEAN CATCH PROCEDURE / Unknown Collection / Unknown 07/29/2024 3:51 PM [facility] 07/29/2024 4:04 PM [facility] Ulices Vides MD LAB - MICROBIOLOGY [facility] [address] [place] [address], [facility] [phone] documented in this encounter Visit Diagnoses Diagnosis Dysuria- Primary Malignant neoplasm of uterus, unspecified site (HCC) Urinary incontinence, unspecified type documented in this encounter Additional Health Concerns Infection Onset Date Last Indicated Resolved Time MDRO Hx Comment:05/06/24 - urine 06/27/2024 06/27/2024 ESBL Hx Comment:05/06/24 - urine 06/27/2024 06/27/2024 documented as of this encounter Care Teams Scudding Inspector Relationship Specialty Start Date End Date Kaye Martinez MD [address] [place] [id number] PCP - General Emergency Medicine 01/26/24 Jamal Mendez MD [address] [facility] [address] [phone] Internal Medicine 01/26/24 documented as of this encounter
--- OUTSIDE RECORDS SUMMARY | 2024-08-04 11:40 | XMS_ITS ---
Author Organization [facility] Address [address] [place], [place] [id number] Care Team Providers Care Manufacturing Team Leader Name Role Phone HORTENSIA BAKER Unavailable [phone] Kaye Martinez Unavailable Unavailable Allergies Allergen (clinical drug ingredient) Drug/Non Drug Allergy documented on EMR Reaction Allergy Type Onset Date Status codeine Codeine Unknown Drug Allergy Active cyclobenzaprine Cyclobenzaprine Unknown Drug Allergy Active REASON FOR VISIT blk under toenails Vital Signs Height 68 in 12/10/2023 Weight 154 lbs 12/10/2023 BMI 23.41 kg/m2 12/10/2023 Height-cm 172.72 cm 12/10/2023 Weight-kg 69.85 kg 12/10/2023 Encounters Encounter Location Date Provider Diagnosis [facility] [address] [place], [place] [id number] 12/10/2023 HORTENSIA BAKER Fungal infection of nail B35.1 ; Contusion of left great toe without damage to nail, initial encounter S90.112A ; Unspecified atherosclerosis of [place] arteries of extremities, bilateral legs I70.203 and Pain in left toe(s) M79.675 Assessments Encounter Date Diagnosis (ICD Code) Assessment Notes Treatment Notes Treatment Clinical Notes Section Notes 12/10/2023 Fungal infection of nail (ICD-10 - B35.1) Nails 1-5 Bilateral were debrided extensively with nail nippers and emery board, reducing length and girth to pink healthy tissue with any subungual debris and necrotic tissue removed 12/10/2023 Contusion of left great toe without damage to nail, initial encounter (ICD-10 - S90.112A) 12/10/2023 Unspecified atherosclerosis of [place] arteries of extremities, bilateral legs (ICD-10 - I70.203) 12/10/2023 Pain in left toe(s) (ICD-10 - M79.675) Plan Of Treatment Treatment Notes Assessment Notes Fungal infection of nail Nails 1-5 Bilat eral were debrided extensively with nail nippers and emery board, reducing length and girth to pink healthy tissue with any subungual debris and necrotic tissue removed Next Appt Details Follow Up: 9 weeks, Reason: Progress Notes * RITIKA UGARTEDOB:1955 ( 68 yo F)Acc No.[id number]:12/10/2023 Progress Notes Patient: RITIKA VALDEZ Provider: Natasha Baker DPM :1955 A ge:68 Y S ex:Female Date:12/10/2023 Address:[address] [place] [address] Subjective: * Chief Complaints: * 1 . Blk under toenails. * HPI: H PI: New Complaint P atient presents for a new patient consultation. Patient complains of an issue to her left 3rd digit. She states she bumped it on a cabinet at home and now its black around the nail. She states her PCP suggested she have it looked at because she is diabetic. Duration of problem is 4 weeks Patient was injured at home. She was seeing another agricultural economics professor for her nails, but she hasn't been there in a while. Her nails are long, thick and discolored. MA: sea. * ROS: G eneral / Constitutional: Patient denies c hange in appetite, fatigue, chills, fever.? C ardiovascular: Chest pain d enies. N eurologic: Loss of use of extremity d enies. * Medical History: F ibromyalgia, Neuropathy, Pneumonia, Cancer (type of cancer), Leg/Feet cramps, Arthritis, Bladder infections, Sleep apnea, Thyroid Disease, Back Trouble, Diabetic, Hypertension, Peripheral vascular disease, Restless leg syndrome. * Surgical History: H ysterectomy , appendectomy , Wrist Surgery , Gall Bladder , Cataract extration , Left leg . * Family History: F ather: , asthma. * Allergies: C odeine, Cyclobenzaprine. Objective: * Vitals: S hoe Size: 8w, Wt:154lbs, Wt-k.85 kg, Ht: 68 in, Ht-cm: 172.72 [...] all digits. . Assessment: * Assessment: 1. C ontusion of left great toe without damage to nail, initial encounter - S90.112A (Primary)?2. F ungal infection of nail - B35.1 3 . U nspecified atherosclerosis of [place] arteries of extremities, bilateral legs - I70.203 4 . P ain in left toe(s) - M79.675 Plan: * Treatment: * Follow Up: 9 weeks * Billing Information: * Visit Code: 23474 Office Visit, New Pt., Level 3. * Procedure Codes: * Sign off status: Completed true * Provider: Natasha Baker DPM Date: 0 12/10/2023 Generated for Bonnie moore/Davis/Benjamin on: 0 08/04/2024 11:39 AM [employer] History and Physical Notes * HPI (History of Present Illness) Category Sub-Category Detail Notes Category Not es HPI New Complaint Patient presents for a new patient consultation. Patient complains of an issue to her left 3rd digit. She states she bumped it on a cabinet at home and now its black around the nail. She states her PCP suggested she have it looked at because she is diabetic. Duration of problem is 4 weeks Patient was injured at home. She was seeing another agricultural economics professor for her nails, but she hasn't been there in a while. Her nails are long, thick and discolored. MA: sea Examination Category Sub-Category Detail Notes Category [...]
--- OUTSIDE RECORDS SUMMARY | 2024-08-04 11:40 | XMS_ITS | Data Portability ---
Author Organization [facility] Address [address] [place] [address] Care Team Providers Care Embroiderer Name Role Phone MARNIE YU Curtain Stretcher [phone] HANK MARTINEZ Primary Care Provider [phone] Assessment No assessment recorded. Plan of Treatment Reminders Order Date Submit Date Provider Last Modified By Organization Details Last Modified Time Details Appointments ANY 10 2024 10:00A M Jamal Mendez MD Not available Not available Not available ANY 15 2024 10:30A M Nestor Smith MD Not available Not available Not available ANY 15 2024 10:30A M Hank Martinez MD Not available Not available Not available Lab HbA1c (hemogl obin A1c), blood 2023 024 PEPE In-Office Order, Internal Use Only DO Not Attach Compendium DO Not Attach Compendium, Do Not Delete/merge, [id number] 02/26/2024 12:32:24 Referral neurolo gical surgeon referra l - Unstead y. Has fallen. Limited dexteri ty upper extremi ties. Would like to explore any treatme nt option possibl e. 2023 024 [email or web address] Kody Ayala MD, [address] [facility] [address], [facility], [place], [address], 08/03/2024 14:23:23 Procedures None recorde d. Surgeries None recorde d. Imaging LDCT, chest, for lung cancer screeni ng 2023 025 [facility] ([facility]), [address] [place], [address], 06/03/2024 16:41:35 XR, ribs, bilater al - pain left lateral rib cage after fall 2023 024 [facility] [address] [place], [address], 03/11/2024 10:12:56 Medication Orders Stiolto Respima t 2.5 mcg-2.5 mcg/act uation solutio n for inhalat ion 2023 024 [id number] [address] , [place], [place], [id number], 04/18/2024 10:51:04 Patient TargetsNo targets recorded. Patient Instructions Encounter Date Encounter Id Patient Instructions Last Modified By Organization Details Last Modified Time 03/30/2024 [id number] bladder training : care instructions Not available 03/30/2024 10:18:53 kegel exercises: care instructions Not available 03/30/2024 10:18:53 Stress Incontinence: Care Instructions Not available 03/30/2024 10:18:53 Urge Incontinence: Care Instructions Not available 03/30/2024 10:18:53 04/18/2024 [id number] Quitting Tobacco : Care Instructions ajamous Not available 04/18/2024 10:50:54 allergies: care instructions ajamous Not available 04/18/2024 10:50:54 sleep apnea: car e instructions ajamous Not available 04/18/2024 10:50:54 chronic obstructive pulmonary disease (COPD): care instructions ajamous Not available 04/18/2024 10:50:54 learning about copd and how to prevent lung infections ajamous Not available 04/18/2024 10:50:54 06/17/2024 [id number] Urinary Tract Infection (UTI) in Women: Care Instructions Not available 06/17/2024 11:43:45 Reason for Referral Neurological Surgeon Referra l for Cervical myelopathy Unsteady. Has fallen. Limited dexterity upper extremities. Would like to explore any treatment option possible. Referring Physician: Hank Martinez, Family Medicine, Encounter Date: 02/26/2024 Results Created Date Observation Date Name Description Value Unit Range Abnormal Flag Note LastModifiedBy Organization Detail LastModifiedTime 02/23/20 24 02/24/2024 VITAM IN D, 25-HY DROXY vitamin D, 25-hydroxy 86.1 NG/mL 30.0-1 00.0 Vitam in D defic iency has been defin ed by the Insti tute of Medic ine and an Endoc rine Socie ty pract ice guide line as a level of serum 25-OH vitam in D less than 20 ng/mL (1,2) . The Endoc rine Socie ty went on to furth er defin e vitam in D insuf ficie ncy as a level betwe en 21 and 29 ng/mL (2). 1. IOM (Inst itute of Medic ine). 2010. Deonna ry refer ence jennifer es for calci um and D. Tony wing [place]: The [facility] Press . 2. Jim morse MF, Delia fox [place], Mary off-F errar i STARK, et al. Evalu ation , treat ment, and preve ntion of vitam in D defic iency : an Endoc rine Socie ty clini katelyn pract ice guide line. JCEM. 2010; 96(7) :1911 -30. Not Available [facility] ([facility]) [address], [place], [address], 02/24/2024 13:12:35 02/26/2002/26/2024 HbA1c (hemo globi n A1c), blood HbA1c 7.9 Not Available In-Office Order Internal Use Only DO Not Attach Compendium DO Not Attach Compendium, Do Not Delete/merge, [id number] 02/26/2024 11:40:39 04/20/2004/20/2024 Urina lysis panel - Urine by Auto color of urine by auto Brown text: yellow , straw abnormal Color UA Brown (A) Alex jones Straw 04/20 7:38 PM 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 [facility] Not Available Not Available 07/14/2024 03:21:23 04/20/20 24 04/20/2024 Urina lysis panel - Urine by Auto clarity in urine by refractometr y automated Turbid text: clear abnormal Joaquina ty UA Turbi d (A) Clear 04/20 7:38 PM 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 [facility] Not Available Not Available 07/14/2024 03:21:23 04/20/20 24 04/20/2024 Urina lysis panel - Urine by Auto glucose [presence] in urine by test strip Normal text: normal Gluco se UA Mable l Mable l 04/20 7:38 PM 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 [facility] Not Available Not Available 07/14/2024 03:21:23 04/20/20 24 04/20/2024 Urina lysis panel - Urine by Auto bilirubin.to aida [presence] in urine by test strip Negati ve text: negati ve Bilir ubin UA Negat linwood Negat linwood 04/20 7:38 PM 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 [facility] Not Available Not Available 07/14/2024 03:21:23 04/20/20 24 04/20/2024 Urina lysis panel - Urine by Auto ketones [presence] in urine by automated test strip Negati ve text: negati ve Keton e UA Negat linwood Negat linwood 04/20 7:38 PM 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 [facility] Not Available Not Available 07/14/2024 03:21:23 04/20/20 24 04/20/2024 Urina lysis panel - Urine by Auto specific gravity of urine by test strip 1.016 low: 1.005h igh: 1.03 Speci fic Gravi ty UA 1.016 1.005 - 1.030 04/20 7:38 PM 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 [facility] Not Available Not Available 07/14/2024 03:21:23 04/20/20 24 04/20/2024 Urina lysis panel - Urine by Auto hemoglobin [presence] in urine by test strip 1+ text: negati ve abnormal Blood UA 1+ (A) Negat linwood 04/20 7:38 PM 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 Not Available Not Available 07/14/2024 03:21:23 11/20/20 24 04/20/2024 Urina lysis panel - Urine by Auto pH of urine by test strip 6 pH low: 5pHhig h: 9pH pH UA 6.0 5.0 - 9.0 pH 04/20 7:38 PM 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 Not Available Not Available 07/14/2024 03:21:23 04/20/20 24 04/20/2024 Urina lysis panel - Urine by Auto protein [presence] in urine by test strip 2+ text: negati ve abnormal Prote in UA 2+ (A) Negat linwood 04/20 7:38 PM 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 [facility] Not Available Not Available 07/14/2024 03:21:23 04/20/20 24 04/20/2024 Urina lysis panel - Urine by Auto urobilinogen [mass/volume ] in urine by automated test strip 2 mg/dL text: normal abnormal Urobi linog en UA 2.0 (A) Mable l mg/dL 04/20 7:38 PM 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 [facility] Not Available Not Available 07/14/2024 03:21:23 04/20/20 24 04/20/2024 Urina lysis panel - Urine by Auto nitrite [presence] in urine by test strip Positi ve text: negati ve abnormal Nitri te UA Posit linwood (A) Negat linwood 04/20 7:38 PM 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 [facility] Not Available Not Available 07/14/2024 03:21:23 04/20/20 24 04/20/2024 Urina lysis panel - Urine by Auto leukocyte esterase [presence] in urine by test strip 500 JUAN/uL text: negati ve abnormal Leuko cyte UA 500 JUAN/u L (A) Negat linwood 04/20 7:38 PM 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 [facility] Not Available Not Available 07/14/2024 03:21:23 04/20/20 24 04/20/2024 Urina lysis panel - Urine by Auto erythrocytes [#/area] in urine sediment by automated count >100 text: 0 - 5 # /hpf abnormal RBC UA >100 (A) 0 - 5 # /hpf 04/20 7:38 PM 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 [facility] Not Available Not Available 07/14/2024 03:21:23 04/20/20 24 04/20/2024 Urina lysis panel - Urine by Auto leukocytes [#/area] in urine sediment by automated count >100 text: 0 - 5 # /hpf abnormal WBC UA >100 (A) 0 - 5 # /hpf 04/20 7:38 PM 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 [facility] Not Available Not Available 07/14/2024 03:21:23 04/20/20 24 04/20/2024 Urina lysis panel - Urine by Auto bacteria [presence] in urine by automated Trace text: none seen abnormal Bacte tara UA Trace (A) None Seen 04/20 7:38 PM 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 [facility] Not Available Not Available 07/14/2024 03:21:23 04/20/20 24 04/20/2024 Urina lysis panel - Urine by Auto epithelial cells.squamo us [presence] in urine by automated 0-2 text: 0 - 5 /hpf Squam ous Epith elial Cells 0-2 0 - 5 /hpf 04/20 7:38 PM 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 [facility] Not Available Not Available 07/14/2024 03:21:23 04/20/20 24 04/20/2024 Urina lysis panel - Urine by Auto mucus [presence] in urine by automated 1+ text: /lpf Mucus UA 1+ /LPF 04/20 7:38 PM 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 [facility] Not Available Not Available 07/14/2024 03:21:23 04/20/20 24 04/20/2024 Urina lysis panel - Urine by Auto Unknown Analyte Not Available Not Available 07/02 03:21:23 04/20/20 24 04/20/2024 Urina lysis panel - Urine by Auto interpretati on and review of laboratory results Abnorm al Not Available Not Available 03:21:23 04/20/20 24 04/20/2024 Blood type and Indir ect antib lian scree n panel - Blood ABO and Rh group [type] in blood A POS ABO Rh A POS 04/20 4:56 PM 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 [facility] Not Available Not Available 07/14/2024 03:21:23 04/20/20 24 04/20/2024 Blood type and Indir ect antib lian scree n panel - Blood blood group antibody screen [presence] in serum or plasma NEG Antib lian Scree n NEG 04/20 4:56 PM 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 [facility] Not Available Not Available 07/14/2024 03:21:23 04/20/20 24 04/20/2024 INR in Plate let poor plasm a by Coagu latio n assay prothrombin time (PT) 13.1 text: 12.1 - 14.8 sec PT 13.1 12.1 - 14.8 sec 04/20 4:29 PM 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 [facility] Not Available Not Available 07/14/2024 03:21:23 04/20/20 24 04/20/2024 INR in Plate let poor plasm a by Coagu latio n assay INR in platelet poor plasma by coagulation assay 1 low: 0.9hig h: 1.1 INR 1.0 0.9 - 1.1 04/20 4:29 PM 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 [facility] Not Available Not Available 07/14/2024 03:21:23 04/20/20 24 04/20/2024 INR in Plate let poor plasm a by Coagu latio n assay Unknown Analyte Conven tional Warfar in Antico agulan t Therap y: INR Refere nce Range: 2.0-3. 0 Intens linwood Warfar in Antico agulan t Therap y: INR Refere nce Range: 2.5-3. 5 Conve ntion al Warfa rin Antic oagul ant Thera py: INR Refer ence Range : 2.0-3 .0 Inten sive Warfa rin Antic oagul ant Thera py: INR Refer ence Range : 2.5-3 .5 Not Available Not Available 07/14/2024 03:21:23 04/20/20 24 04/20/2024 INR in Plate let poor plasm a by Coagu latio n assay interpretati on and review of laboratory results Normal Not Available Not Available 07/02 03:21:23 05/06/20 24 05/06/2024 Creat inine [Mass /volu me] in Body fluid creatinine [mass/volume ] in body fluid 0.4 mg/dL text: not establ ished for fluids Creat inine Fluid 0.40 Not Estab lishe d For Fluid s mg/dL 05/06 1:54 PM 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 [facility]OS[facility] AIDA Not Available Not Available 07/14/2024 03:21:24 05/06/20 24 05/06/2024 Creat inine [Mass /volu me] in Body fluid [type] of body fluid Other Fluid Type Other 05/06 1:54 PM 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 [facility]OS[facility] AIDA Not Available Not Available 07/14/2024 03:21:24 05/06/20 24 05/06/2024 Creat inine [Mass /volu me] in Body fluid specimen source [identifier] of body fluid subQ fluid collec tion Other Fluid Sourc e: subQ fluid colle ction 05/06 1:54 PM 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 [facility] AIDA Not Available Not Available 07/14/2024 03:21:24 05/06/20 24 05/06/2024 Creat inine [Mass /volu me] in Body fluid Unknown Analyte The [facility] has not establ ished the refere nce interv al and analyt ic perfor latricia for this body fluid test. The test result must be integr ated into the clinic al contex t for interp retati on. Body fluid source not valida jose angel, interp ret result s with cautio n. The labor [facility] has not estab lishe d the refer ence inter maría elena and maykel tic perfo rmanc e for this body fluid test. The test resul t must be integ rated into the clini katelyn jose xt for inter preta tion. Body fluid sourc e not valid ated, inter pret resul ts with cauti on. Not Available Not Available 07/14/2024 03:21:24 05/06/20 24 05/08/2024 Bacte tara ident ified in Wound by Cultu re microorganis m identified in specimen by culture No growth Cultu re No growt h SHIMA 05/08 5:56 PM 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 [facility] G[facility] Not Available Not Available 07/14/2024 03:21:23 05/06/20 24 05/08/2024 Bacte tara ident ified in Wound by Cultu re microscopic observation [identifier] in specimen by gram stain Modera te Red blood cells Gram Stain Moder ate Red blood cells 05/08 5:56 PM 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 [facility] BI[facility] GY Not Available Not Available 07/14/2024 03:21:23 05/06/20 24 05/08/2024 Bacte tara ident ified in Wound by Cultu re microscopic observation [identifier] in specimen by gram stain Rare Polymo rphonu clear cells Gram Stain Rare Polym orpho nucle ar cells 05/08 5:56 PM 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 [facility] GY Not Available Not Available 07/14/2024 03:21:23 05/06/20 24 05/08/2024 Bacte tara ident ified in Wound by Cultu re microscopic observation [identifier] in specimen by gram stain No organi sms seen Gram Stain No organ isms seen 05/08 5:56 PM 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 [facility] GY Not Available Not Available 07/14/2024 03:21:23 05/17/20 24 05/17/2024 Urina lysis panel - Urine by Auto glucose UA - Gluco se UA - Not Available Not Available 07/14/2024 03:21:24 05/17/20 24 05/17/2024 Urina lysis panel - Urine by Auto bilirubin UA poct - Bilir ubin UA POCT - Not Available Not Available 07/14/2024 03:21:24 05/17/20 24 05/17/2024 Urina lysis panel - Urine by Auto ketones UA poct - Keton es UA POCT - Not Available Not Available 07/14/2024 03:21:24 05/17/20 24 05/17/2024 Urina lysis panel - Urine by Auto specific gravity UA 1.015 Speci fic Gravi ty UA 1.015 Not Available Not Available 07/14/2024 03:21:24 05/17/20 24 05/17/2024 Urina lysis panel - Urine by Auto blood urine poct 3+ Blood Urine POCT 3+ Not Available Not Available 07/14/2024 03:21:24 05/17/20 24 05/17/2024 Urina lysis panel - Urine by Auto pH UA 6.5 pH UA 6.5 Not Available Not Available 07/14/2024 03:21:24 05/17/20 24 05/17/2024 Urina lysis panel - Urine by Auto protein UA 1+ Prote in UA 1+ Not Available Not Available 07/14/2024 03:21:24 05/17/20 24 05/17/2024 Urina lysis panel - Urine by Auto urobilinogen UA - Urobi linog en UA - Not Available Not Available 07/14/2024 03:21:24 05/17/20 24 05/17/2024 Urina lysis panel - Urine by Auto nitrite UA + Nitri te UA + Not Available Not Available 07/14/2024 03:21:24 05/17/20 24 05/17/2024 Urina lysis panel - Urine by Auto WBC UA 2+ WBC UA 2+ Not Available Not Available 07/14/2024 03:21:24 05/21/20 24 05/24/2024 Bacte tara ident ified in Urine by Cultu re bacteria identified in urine by culture >100,0 00 CFU/mL Escher ichia coli extend ed-spe ctrum beta-l actama se (ESBL) abnormal Cultu re Urine >100, 000 CFU/m L Esche adonis a coli exten ded-s pectr um beta- lacta keaton (ESBL ) (A) SHIMA 05/24 12:29 AM 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 [facility] Not Available Not Available 07/27/2024 14:29:04 05/21/20 24 05/24/2024 Bacte tara ident ified in Urine by Cultu re Unknown Analyte Contac t Precau tions Requir ed. This isolat e is a multid rug resist ant organi sm (MDRO) . MDROs are resist ant to 3 or more classe s of antibi otics. Contac t Precau tions requir ed. Infect ious Diseas es consul t recomm ended. Conta ct Preca ution s Requi red. This isola te is a multi drug resis tant organ ism (MDRO ). MDROs are resis tant to 3 or more class es of antib iotic s. Conta ct Preca ution s requi red. Infec tious Disea ses consu lt recom usman d. Not Available Not Available 07/27/2024 14:29:04 05/21/20 24 05/24/2024 Bacte tara ident ified in Urine by Cultu re interpretati on and review of laboratory results Abnorm al Not Available Not Available 14:29:04 05/21/20 24 05/21/2024 Urina lysis panel - Urine by Auto color UA Yellow text: straw, yellow Color UA Yello w Straw , Yello w 05/21 2:15 PM 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 [facility]OS[facility] AIDA Not Available Not Available 07/27/2024 14:29:04 05/21/20 24 05/21/2024 Urina lysis panel - Urine by Auto clarity UA Cloudy text: clear abnormal Joaquina ty UA Dickens y (A) Clear 05/21 2:15 PM 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 [facility]OS[facility] AIDA Not Available Not Available 07/27/2024 14:29:04 05/21/20 24 05/21/2024 Urina lysis panel - Urine by Auto specific gravity UA 1.025 low: 1.005h igh: 1.03 Speci fic Gravi ty UA 1.025 1.005 - 1.030 05/21 2:15 PM 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 [facility]OS[facility] AIDA Not Available Not Available 07/27/2024 14:29:04 05/21/20 24 05/21/2024 Urina lysis panel - Urine by Auto pH UA 7 pH low: 5pHhig h: 8pH pH UA 7.0 5.0 - 8.0 pH 05/21 2:15 PM 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 [facility] AIDA Not Available Not Available 07/27/2024 14:29:04 05/21/20 24 05/21/2024 Urina lysis panel - Urine by Auto protein UA 2+ text: negati ve abnormal Prote in UA 2+ (A) Negat linwood 05/21 2:15 PM 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 [facility]OS[facility] AIDA Not Available Not Available 07/27/2024 14:29:04 05/21/20 24 05/21/2024 Urina lysis panel - Urine by Auto glucose UA Negati ve text: negati ve Gluco se UA Negat linwood Negat linwood 05/21 2:15 PM 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 [facility]IDA Not Available Not Available 07/27/2024 14:29:04 05/21/20 24 05/21/2024 Urina lysis panel - Urine by Auto ketone UA 1+ text: negati ve abnormal Keton e UA 1+ (A) Negat linwood 05/21 2:15 PM 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 [facility]IDA Not Available Not Available 07/27/2024 14:29:04 05/21/20 24 05/21/2024 Urina lysis panel - Urine by Auto bilirubin UA Negati ve text: negati ve Bilir ubin UA Negat linwood Negat linwood 05/21 2:15 PM 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 [facility] Not Available Not Available 07/27/2024 14:29:04 05/21/20 24 05/21/2024 Urina lysis panel - Urine by Auto blood UA Trace text: negati ve abnormal Blood UA Trace (A) Negat linwood 05/21 2:15 PM 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 [facility] Not Available Not Available 07/27/2024 14:29:04 05/21/20 24 05/21/2024 Urina lysis panel - Urine by Auto nitrite UA Positi ve text: negati ve abnormal Nitri te UA Posit linwood (A) Negat linwood 05/21 2:15 PM 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 [facility] Not Available Not Available 07/27/2024 14:29:04 05/21/20 24 05/21/2024 Urina lysis panel - Urine by Auto leukocyte esterase 3+ text: negati ve abnormal Leuko cyte Adina ase 3+ (A) Negat linwood 05/21 2:15 PM 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 [facility] Not Available Not Available 07/27/2024 14:29:04 05/21/20 24 05/21/2024 Urina lysis panel - Urine by Auto urobilinogen UA Negati ve text: negati ve mg/dL Urobi linog en UA Negat linwood Negat linwood mg/dL 05/21 2:15 PM 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 Not Available Not Available 07/27/2024 14:29:04 05/21/20 24 05/21/2024 Urina lysis panel - Urine by Auto comment UA Micros copic to follow . Comme nt UA Micro scopi c to follo w. 05/21 2:15 PM 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 IADA Not Available Not Available 07/27/2024 14:29:04 05/21/20 24 05/21/2024 Urina lysis panel - Urine by Auto interpretati on and review of laboratory results Abnorm al Not Available Not Available 14:29:04 05/21/20 24 05/21/2024 Urina lysis compl ete W Refle x Cultu re panel - Urine reflex status Cultur e to follow Refle x Statu s Cultu re to follo w 05/21 2:14 PM 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 [facility] Not Available Not Available 07/14/2024 03:21:23 05/21/20 24 05/21/2024 Urina lysis compl ete W Refle x Cultu re panel - Urine RBC UA 11-20 text: none seen, 0-2, 3-5 /hpf abnormal RBC UA 11-20 (A) None Seen, 0-2, 3-5 /HPF 05/21 2:14 PM 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 [facility] Not Available Not Available 07/14/2024 03:21:23 05/21/20 24 05/21/2024 Urina lysis compl ete W Refle x Cultu re panel - Urine WBC UA >100 text: none seen, 0-5 /hpf abnormal WBC UA >100 (A) None Seen, 0-5 /HPF 05/21 2:14 PM 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 Not Available Not Available 07/14/2024 03:21:23 05/21/20 24 05/21/2024 Urina lysis compl ete W Refle x Cultu re panel - Urine bacteria UA 3+ text: none /hpf abnormal Bacte tara UA 3+ (A) None /HPF 05/21 2:14 PM 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 [facility] Not Available Not Available 07/14/2024 03:21:23 05/21/20 24 05/21/2024 Urina lysis compl ete W Refle x Cultu re panel - Urine squamous epithelial cells UA 0-2 text: none seen, 0-2, 3-5 /hpf Squam ous Epith elial Cells UA 0-2 None Seen, 0-2, 3-5 /HPF 05/21 2:14 PM 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 [facility] Not Available Not Available 07/14/2024 03:21:23 05/21/20 24 05/21/2024 Urina lysis compl ete W Refle x Cultu re panel - Urine mucus UA 1+ text: /lpf Mucus UA 1+ /LPF 05/21 2:14 PM 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 [facility] Not Available Not Available 07/14/2024 03:21:23 05/21/20 24 05/21/2024 Urina lysis compl ete W Refle x Cultu re panel - Urine calcium oxalate UA Occasi onal text: none /hpf abnormal Calci um Oxala te UA Occas ional (A) None /HPF 05/21 2:14 PM 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 [facility] Not Available Not Available 07/14/2024 03:21:23 05/21/20 24 05/21/2024 Urina lysis compl ete W Refle x Cultu re panel - Urine Unknown Analyte Urine sample less that 1 mL. Micros copic exam perfor med on unconc entrat ed sample . Urine sampl e less that 1 mL. Micro scopi c exam perfo rmed on uncon centr ated sampl e. Not Available Not Available 07/14/2024 03:21:23 05/21/20 24 05/21/2024 Urina lysis compl ete W Refle x Cultu re panel - Urine interpretati on and review of laboratory results Abnorm al Not Available Not Available 03:21:23 05/21/20 24 05/21/2024 Lacta te [Mole s/vol ume] in Blood lactate [moles/volum e] in serum or plasma 1.9 mmol/ L high: 2mmol/ L Lacti c Acid- Stat 1.9 <=2.0 mmol/ L 05/21 1:41 PM 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 [facility] Not Available Not Available 07/27/2024 14:29:04 05/21/20 24 05/21/2024 Lacta te [Mole s/vol ume] in Blood interpretati on and review of laboratory results Normal Not Available Not Available 07/03 14:29:04 05/21/20 24 05/26/2024 Bacte tara ident ified in Blood by Cultu re microorganis m identified in specimen by culture No growth day 5 Cultu re No growt h day 5 SHIMA 05/26 4:32 PM 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 [facility] G[facility] Not Available Not Available 07/27/2024 14:29:04 05/21/20 24 05/26/2024 Bacte tara ident ified in Blood by Cultu re interpretati on and review of laboratory results Normal Not Available Not Available 07/03 14:29:04 05/21/20 24 05/21/2024 Compr ehens linwood metab olic 1999 panel - Serum or Plasm a urea nitrogen [mass/volume ] in serum or plasma 15 mg/dL low: 7mg/dL high: 26mg/d L BUN 15 7 - 26 mg/dL 05/21 1:45 PM 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 [facility] Not Available Not Available 07/27/2024 14:29:04 05/21/20 24 05/21/2024 Compr ehens linwood metab olic 1999 panel - Serum or Plasm a creatinine [mass/volume ] in serum or plasma 0.59 mg/dL low: 0.56mg /dLhig h: 0.96mg /dL Creat inine 0.59 0.56 - 0.96 mg/dL 05/21 1:45 PM 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 [facility] Not Available Not Available 07/27/2024 14:29:04 05/21/20 24 05/21/2024 Compr ehens liwnood metab olic 2000 panel - Serum or Plasm a sodium [moles/volum e] in serum or plasma 135 mmol/ L low: 136mmo l/Lhig h: 145mmo l/L low Sodiu m 135 (L) 136 - 145 mmol/ L 05/21 1:45 PM 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 [facility] Not Available Not Available 07/27/2024 14:29:04 05/21/20 24 05/21/2024 Compr ehens [place] metab olic 1999 panel - Serum or Plasm a potassium [moles/volum e] in serum or plasma 4.1 mmol/ L low: 3.5mmo l/Lhig h: 4.5mmo l/L Potas sium 4.1 3.5 - 4.5 mmol/ L 05/21 1:45 PM 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 [facility] Not Available Not Available 07/27/2024 14:29:04 05/21/20 24 05/21/2024 Compr ehens [place] metab olic 1999 panel - Serum or Plasm a chloride [moles/volum e] in serum or plasma 99 mmol/ L low: 98mmol /Lhigh : 107mmo l/L Chlor [place] 99 98 - 107 mmol/ L 05/21 1:45 PM 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 [facility] Not Available Not Available 07/27/2024 14:29:04 05/21/20 24 05/21/2024 Compr ehens [place] metab olic 1999 panel - Serum or Plasm a carbon dioxide, total [moles/volum e] in serum or plasma 27 mmol/ L low: 22mmol /Lhigh : 29mmol /L CO2 27 22 - 29 mmol/ L 05/21 1:45 PM 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 [facility] Not Available Not Available 07/27/2024 14:29:04 05/21/20 24 05/21/2024 Compr ehens [place] metab olic 1999 panel - Serum or Plasm a glucose [mass/volume ] in serum or plasma 131 mg/dL low: 70mg/d Lhigh: 99mg/d L high Gluco se 131 (H) 70 - 99 mg/dL 05/21 1:45 PM 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 [facility] Not Available Not Available 07/27/2024 14:29:04 05/21/20 24 05/21/2024 Compr ehens [place] metab olic 1999 panel - Serum or Plasm a calcium [moles/volum e] in serum or plasma 9.9 mg/dL low: 8.4mg/ dLhigh : 10.2mg /dL Calci um 9.9 8.4 - 10.2 mg/dL 05/21 1:45 PM 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 [facility] Not Available Not Available 07/27/2024 14:29:04 05/21/20 24 05/21/2024 Compr ehens [place] metab olic 2000 panel - Serum or Plasm a protein [mass/volume ] in serum or plasma 7.3 g/dL low: 6g/dLh igh: 8.3g/d L Prote in Total 7.3 6.0 - 8.3 g/dL 05/21 1:45 PM 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 Not Available Not Available 07/27/2024 14:29:04 05/21/20 24 05/21/2024 Compr ehens [place] metab olic 2000 panel - Serum or Plasm a albumin [mass/volume ] in serum or plasma by bromocresol green (bcg) dye binding method 4.3 g/dL low: 3.4g/d Lhigh: 5g/dL Album in 4.3 3.4 - 5.0 g/dL 05/21 1:45 PM 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 [facility] Not Available Not Available 07/27/2024 14:29:04 05/21/20 24 05/21/2024 Compr ehens [place] metab olic 2000 panel - Serum or Plasm a bilirubin.to aida [mass/volume ] in serum or plasma 0.3 mg/dL low: 0.2mg/ dLhigh : 1.2mg/ dL Bilir ubin Total 0.3 0.2 - 1.2 mg/dL 05/21 1:45 PM 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 [facility] Not Available Not Available 07/27/2024 14:29:04 05/21/20 24 05/21/2024 Compr ehens [place] metab olic 2000 panel - Serum or Plasm a alkaline phosphatase [enzymatic activity/vol ume] in serum or plasma 57 U/L low: 40U/Lh igh: 150U/L Alkal ine Phosp hatas e 57 40 - 150 U/L 05/21 1:45 PM 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 [facility] Not Available Not Available 07/27/2024 14:29:04 05/21/20 24 05/21/2024 Compr ehens [place] metab olic 2000 panel - Serum or Plasm a alanine aminotransfe rase [enzymatic activity/vol ume] in serum or plasma by no addition of P-5'-P 24 U/L low: 5U/Lhi gh: 55U/L ALT 24 5 - 55 U/L 05/21 1:45 PM 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 [facility] Not Available Not Available 07/27/2024 14:29:04 05/21/20 24 05/21/2024 Compr ehens [place] metab olic 1999 panel - Serum or Plasm a aspartate aminotransfe rase [enzymatic activity/vol ume] in serum or plasma 23 U/L low: 5U/Lhi gh: 34U/L AST 23 5 - 34 U/L 05/21 1:45 PM 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 [facility] Not Available Not Available 07/27/2024 14:29:04 05/21/20 24 05/21/2024 Compr ehens [place] metab olic 1999 panel - Serum or Plasm a anion gap 9 low: 6high: 16 Anion Gap 9 6 - 16 05/21 1:45 PM 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 [facility] Not Available Not Available 07/27/2024 14:29:04 05/21/20 24 05/21/2024 Compr ehens [place] metab olic 1999 panel - Serum or Plasm a urea nitrogen/cre atinine [mass ratio] in serum or plasma 25 low: 7high: 23 high BUN/C reati nine Ratio 25 (H) 7 - 23 05/21 1:45 PM 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 [facility] Not Available Not Available 07/27/2024 14:29:04 05/21/20 24 05/21/2024 Compr ehens [place] metab olic 2000 panel - Serum or Plasm a osmolality calculated 283 text: 275 - 295 mOsm/k g Osmol lubna Jaylen lated 283 275 - 295 mOsm/ kg 05/21 1:45 PM 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 [facility] Not Available Not Available 07/27/2024 14:29:04 05/21/20 24 05/21/2024 Compr ehens [place] metab olic 1999 panel - Serum or Plasm a albumin/glob ulin ratio 1.4 low: 1.1hig h: 2.3 Album in/Gl obuli n Ratio 1.4 1.1 - 2.3 05/21 1:45 PM 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 Not Available Not Available 07/27/2024 14:29:04 05/21/20 24 05/21/2024 Compr ehens [place] metab olic 2000 panel - Serum or Plasm a glomerular filtration rate/1.73 sq M.predicted [volume rate/area] in serum, plasma or blood by creatinine-b ased formula (CKD-epi 2020) text: >=90 mL/min /1.73 m2 eGFR by CKD-E PI >90 >=90 mL/mi n/1.7 3 m2 05/21 1:45 PM 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 Not Available Not Available 07/27/2024 14:29:04 05/21/20 24 05/21/2024 Compr ehens [place] metab olic 2000 panel - Serum or Plasm a interpretati on and review of laboratory results Abnorm al Not Available Not Available 14:29:04 05/21/20 24 05/21/2024 CBC W Auto Diffe renti al panel - Blood leukocytes [#/volume] in blood by automated count 5.2 text: 4.0 - 10.7 x10e9/ L WBC 5.2 4.0 - 10.7 x10E9 /L 05/21 1:21 PM 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 [employer] [facility] Not Available Not Available 07/27/2024 14:29:04 05/21/20 24 05/21/2024 CBC W Auto Diffe renti al panel - Blood erythrocytes [#/volume] in blood by automated count 4.11 text: 3.90 - 5.20 x10e12 /L RBC Count 4.11 3.90 - 5.20 x10E1 2/L 05/21 1:21 PM 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 Not Available Not Available 07/27/2024 14:29:04 05/21/20 24 05/21/2024 CBC W Auto Diffe renti al panel - Blood hemoglobin [mass/volume ] in blood 13.4 g/dL low: 11.9g/ dLhigh : 15.8g/ dL Hemog lobin 13.4 11.9 - 15.8 g/dL 05/21 1:21 PM 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 [facility] Not Available Not Available 07/27/2024 14:29:04 05/21/20 24 05/21/2024 CBC W Auto Diffe renti al panel - Blood hematocrit [volume fraction] of blood by automated count 38.8 % low: 34.8%h igh: 46.1% Hemat ocrit 38.8 34.8 - 46.1 % 05/21 1:21 PM 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 [facility] Not Available Not Available 07/27/2024 14:29:04 05/21/20 24 05/21/2024 CBC W Auto Diffe renti al panel - Blood MCV [entitic volume] by automated count 94.4 fL low: 80fLhi gh: 98fL MCV 94.4 80.0 - 98.0 fL 05/21 1:21 PM 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 [facility] Not Available Not Available 07/27/2024 14:29:04 05/21/20 24 05/21/2024 CBC W Auto Diffe renti al panel - Blood MCH [entitic mass] by automated count 32.6 pg low: 26.7pg high: 33.6pg MCH 32.6 26.7 - 33.6 pg 05/21 1:21 PM [facility] Not Available Not Available 07/27/2024 14:29:04 05/21/20 24 05/21/2024 CBC W Auto Diffe renti al panel - Blood MCHC [mass/volume ] by automated count 34.5 g/dL low: 31.7g/ dLhigh : 36.3g/ dL MCHC 34.5 31.7 - 36.3 g/dL 05/21 1:21 PM 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 [facility] Not Available Not Available 07/27/2024 14:29:04 05/21/20 24 05/21/2024 CBC W Auto Diffe renti al panel - Blood erythrocyte distribution width [ratio] by automated count 11.9 % low: 11.3%h igh: 14.8% RDW-C V 11.9 11.3 - 14.8 % 05/21 1:21 PM 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 [facility] Not Available Not Available 07/27/2024 14:29:04 05/21/20 24 05/21/2024 CBC W Auto Diffe renti al panel - Blood platelets [#/volume] in blood by automated count 233 text: 150 - 420 x10e9/ L Plate let Count 233 150 - 420 x10E9 /L 05/21 1:21 PM 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 [facility] Not Available Not Available 07/27/2024 14:29:04 05/21/20 24 05/21/2024 CBC W Auto Diffe renti al panel - Blood platelet mean volume [entitic volume] in blood by automated count 8.7 fL low: 7.8fLh igh: 11.4fL MPV 8.7 7.8 - 11.4 fL 05/21 1:21 PM 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 [facility] Not Available Not Available 07/27/2024 14:29:04 05/21/20 24 05/21/2024 CBC W Auto Diffe renti al panel - Blood neutrophils/ 100 leukocytes in blood by automated count 57.4 % low: 41%hig h: 74% Neutr ophil % 57.4 41.0 - 74.0 % 05/21 1:21 PM 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 [facility] Not Available Not Available 07/27/2024 14:29:04 05/21/20 24 05/21/2024 CBC W Auto Diffe renti al panel - Blood lymphocytes/ 100 leukocytes in blood by automated count 29.2 % low: 17%hig h: 47% Lymph ocyte % 29.2 17.0 - 47.0 % 05/21 1:21 PM 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 [facility] Not Available Not Available 07/27/2024 14:29:04 05/21/20 24 05/21/2024 CBC W Auto Diffe renti al panel - Blood monocytes/10 0 leukocytes in blood by automated count 9 % low: 3%high : 11% Monoc yte % 9.0 3.0 - 11.0 % 05/21 1:21 PM 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 [facility] Not Available Not Available 07/27/2024 14:29:04 05/21/20 24 05/21/2024 CBC W Auto Diffe renti al panel - Blood eosinophils/ 100 leukocytes in blood by automated count 4 % low: 0%high : 7% Eosin ophil % 4.0 0.0 - 7.0 % 05/21 1:21 PM 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 [facility] Not Available Not Available 07/27/2024 14:29:04 05/21/20 24 05/21/2024 CBC W Auto Diffe renti al panel - Blood basophils/10 0 leukocytes in blood by automated count 0.2 % low: 0%high : 1.6% Basop hil % 0.2 0.0 - 1.6 % 05/21 1:21 PM 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 [facility] Not Available Not Available 07/27/2024 14:29:04 05/21/20 24 05/21/2024 CBC W Auto Diffe renti al panel - Blood immature granulocytes /100 leukocytes in blood by automated count 0.2 % low: 0%high : 1% Immat ure Granu locyt es % 0.2 0.0 - 1.0 % 05/21 1:21 PM 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 [facility] Not Available Not Available 07/27/2024 14:29:04 05/21/20 24 05/21/2024 CBC W Auto Diffe renti al panel - Blood neutrophils [#/volume] in blood by automated count 3.01 text: 1.60 - 7.50 x10e9/ L Neutr ophil Absol [place] 3.01 1.60 - 7.50 x10E9 /L 05/21 1:21 PM 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 [facility] Not Available Not Available 07/27/2024 14:29:04 05/21/20 24 05/21/2024 CBC W Auto Diffe renti al panel - Blood lymphocytes [#/volume] in blood by automated count 1.53 text: 1.00 - 4.40 x10e9/ L Lymph ocyte Absol [place] 1.53 1.00 - 4.40 x10E9 /L 05/21 1:21 PM 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 [facility] Not Available Not Available 07/27/2024 14:29:04 05/21/20 24 05/21/2024 CBC W Auto Diffe renti al panel - Blood monocytes [#/volume] in blood by automated count 0.47 text: 0.15 - 1.00 x10e9/ L Monoc yte Absol [place] 0.47 0.15 - 1.00 x10E9 /L 05/21 1:21 PM 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 [facility] Not Available Not Available 07/27/2024 14:29:04 05/21/20 24 05/21/2024 CBC W Auto Diffe renti al panel - Blood eosinophils [#/volume] in blood 0.21 text: 0.00 - 0.60 x10e9/ L Eosin ophil Absol [place] 0.21 0.00 - 0.60 x10E9 /L 05/21 1:21 PM 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 Not Available Not Available 07/27/2024 14:29:04 05/21/20 24 05/21/2024 CBC W Auto Diffe renti al panel - Blood basophils [#/volume] in blood by automated count 0.01 text: 0.00 - 0.13 x10e9/ L Basop hil Absol [place] 0.01 0.00 - 0.13 x10E9 /L 05/21 1:21 PM 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 Not Available Not Available 07/27/2024 14:29:04 05/21/20 24 05/21/2024 CBC W Auto Diffe renti al panel - Blood interpretati on and review of laboratory results Normal Not Available Not Available 07/03 14:29:04 05/21/20 24 05/26/2024 Bacte tara ident ified in Blood by Cultu re microorganis m identified in specimen by culture No growth day 5 Cultu re No growt h day 5 SHIMA 05/26 4:32 PM 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 [facility] GY Not Available Not Available 07/27/2024 14:29:04 05/21/20 24 05/26/2024 Bacte atra ident ified in Blood by Cultu re interpretati on and review of laboratory results Normal Not Available Not Available 07/03 14:29:04 05/22/20 24 05/22/2024 Gluco se [Mass /volu me] in Arter ial blood glucose [mass/volume ] in capillary blood by glucometer 192 mg/dL low: 70mg/d Lhigh: 99mg/d L high Gluco se WB/PO C 192 (H) 70 - 99 mg/dL 05/22 8:51 PM 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 [facility] Not Available Not Available 07/27/2024 14:29:05 05/22/20 24 05/22/2024 Gluco se [Mass /volu me] in Arter ial blood specimen source identified Cap Finger stick Speci men Type Cap Finge rstic k 05/22 8:51 PM 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 [employer] [facility] Not Available Not Available 07/27/2024 14:29:05 05/22/20 24 05/22/2024 Gluco se [Mass /volu me] in Arter ial blood interpretati on and review of laboratory results Abnorm al Not Available Not Available 14:29:05 05/22/20 24 05/22/2024 Gluco se [Mass /volu me] in Arter ial blood glucose [mass/volume ] in capillary blood by glucometer 137 mg/dL low: 70mg/d Lhigh: 99mg/d L high Gluco se WB/PO C 137 (H) 70 - 99 mg/dL 05/22 8:51 PM 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 [facility] Not Available Not Available 07/27/2024 14:29:04 05/22/20 24 05/22/2024 Gluco se [Mass /volu me] in Arter ial blood specimen source identified Arteri al Speci men Type Arter ial 05/22 8:51 PM 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 [employer] [facility] Not Available Not Available 07/27/2024 14:29:04 05/22/20 24 05/22/2024 Gluco se [Mass /volu me] in Arter ial blood interpretati on and review of laboratory results Abnorm al Not Available Not Available 14:29:04 05/22/20 24 05/22/2024 Gluco se [Mass /volu me] in Arter ial blood glucose [mass/volume ] in capillary blood by glucometer 159 mg/dL low: 70mg/d Lhigh: 99mg/d L high Gluco se WB/PO C 159 (H) 70 - 99 mg/dL 05/22 12:29 PM 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 Not Available Not Available 07/27/2024 14:29:04 05/22/20 24 05/22/2024 Gluco se [Mass /volu me] in Arter ial blood specimen source identified Arteri al Speci men Type Arter ial 05/22 12:29 PM 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 [employer] AT[facility] AIDA Not Available Not Available 07/27/2024 14:29:04 05/22/20 24 05/22/2024 Gluco se [Mass /volu me] in Arter ial blood interpretati on and review of laboratory results Abnorm al Not Available Not Available 14:29:04 05/22/20 24 05/22/2024 Gluco se [Mass /volu me] in Arter ial blood glucose [mass/volume ] in capillary blood by glucometer 138 mg/dL low: 70mg/d Lhigh: 99mg/d L high Gluco se WB/PO C 138 (H) 70 - 99 mg/dL 05/22 8:40 AM 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 [employer] AT[facility] AIDA Not Available Not Available 07/27/2024 14:29:04 05/22/20 24 05/22/2024 Gluco se [Mass /volu me] in Arter ial blood specimen source identified Arteri al Speci men Type Arter ial 05/22 8:40 AM 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 [employer] AT[facility] Not Available Not Available 07/27/2024 14:29:04 05/22/20 24 05/22/2024 Gluco se [Mass /volu me] in Arter ial blood interpretati on and review of laboratory results Abnorm al Not Available Not Available 14:29:04 05/23/20 24 05/23/2024 Gluco se [Mass /volu me] in Arter ial blood glucose [mass/volume ] in capillary blood by glucometer 117 mg/dL low: 70mg/d Lhigh: 99mg/d L high Gluco se WB/PO C 117 (H) 70 - 99 mg/dL 05/23 5:54 PM 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 [facility] [employer] AT[facility] A[facility] Not Available Not Available 07/27/2024 14:29:05 05/23/20 24 05/23/2024 Gluco se [Mass /volu me] in Arter ial blood specimen source identified Cap Finger stick Speci men Type Cap Finge rstic k 05/23 5:54 PM 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 [facility] Not Available Not Available 07/27/2024 14:29:05 05/23/20 24 05/23/2024 Gluco se [Mass /volu me] in Arter ial blood interpretati on and review of laboratory results Abnorm al Not Available Not Available 14:29:05 05/23/20 24 05/23/2024 Gluco se [Mass /volu me] in Arter ial blood glucose [mass/volume ] in capillary blood by glucometer 109 mg/dL low: 70mg/d Lhigh: 99mg/d L high Gluco se WB/PO C 109 (H) 70 - 99 mg/dL 05/23 11:48 AM 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 [facility] [employer] AT[facility] AIDA Not Available Not Available 07/27/2024 14:29:05 05/23/20 24 05/23/2024 Gluco se [Mass /volu me] in Arter ial blood specimen source identified Cap Finger stick Speci men Type Cap Finge rstic k 05/23 11:48 AM 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 [facility] [employer] AT[facility] AIDA Not Available Not Available 07/27/2024 14:29:05 05/23/20 24 05/23/2024 Gluco se [Mass /volu me] in Arter ial blood interpretati on and review of laboratory results Abnorm al Not Available Not Available 14:29:05 05/23/20 24 06/20/2024 Fungu s ident ified in [place] te by Cultu re microorganis m identified in specimen by culture No fungus isolat ed Cultu re No fungu s isola jose angel SHIMA 06/20 6:40 AM 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 [facility] [employer] [facility] Not Available Not Available 07/14/2024 03:21:24 05/23/20 24 06/20/2024 Fungu s ident ified in [place] te by Cultu re fungus identified in specimen by fungus stain No yeast or hyphae seen Fungu s Stain No yeast or hypha e seen 06/20 6:40 AM 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 [facility] Not Available Not Available 07/14/2024 03:21:24 05/23/20 24 06/20/2024 Fungu s ident ified in [place] te by Cultu re interpretati on and review of laboratory results Normal Not Available Not Available 07/02 03:21:24 05/23/20 24 06/12/2024 Refer ral lab test panel test name CRBF Test Name CRBF 06/12 11:09 AM 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 [facility] REF LAB NON INTER F Not Available Not Available 07/14/2024 03:21:23 05/23/20 24 06/12/2024 Refer ral lab test panel test result See Anton cottrell Report Test Resul t See Noah ed Repor t 06/12 11:09 AM 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 [facility] REF LAB NON INTER F Not Available Not Available 07/14/2024 03:21:23 05/23/20 24 06/12/2024 Refer [facility] lab test panel [facility] 06/12 11:09 AM 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 [facility] REF LAB NON INTER F Not Available Not Available 07/14/2024 03:21:23 05/23/20 24 05/27/2024 Bacte tara ident ified in Body fluid by Cultu re microorganis m identified in specimen by culture Light Staphy lococc us epider midis critical abnormal Cultu re Light Staph yloco ccus epide rmidi s (AA) SHIMA 05/27 12:01 PM 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 [facility] [facility] Not Available Not Available 07/14/2024 03:21:23 05/23/20 24 05/27/2024 Bacte tara ident ified in Body fluid by Cultu re microorganis m identified in specimen by culture Light Staphy lococc us lugdun ensis critical abnormal Cultu re Light Staph yloco ccus lugdu nensi s (AA) SHIMA 05/27 12:01 PM 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 [facility] Not Available Not Available 07/14/2024 03:21:23 05/23/20 24 05/27/2024 Bacte tara ident ified in Body fluid by Cultu re microscopic observation [identifier] in specimen by gram stain Light Polymo rphonu clear cells Gram Stain Light Polym orpho nucle ar cells 05/27 12:01 PM 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 [facility] Not Available Not Available 07/14/2024 03:21:23 05/23/20 24 05/27/2024 Bacte tara ident ified in Body fluid by Cultu re microscopic observation [identifier] in specimen by gram stain No organi sms seen Gram Stain No organ isms seen 05/27 12:01 PM 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 [facility] Not Available Not Available 07/14/2024 03:21:23 05/23/20 24 05/27/2024 Bacte tara ident ified in Body fluid by Cultu re interpretati on and review of laboratory results Abnorm al Not Available Not Available 03:21:23 05/23/20 24 07/04/2024 Mycob acter ium sp ident ified in Speci men by Organ ism speci fic cultu re microorganis m identified in specimen by culture No acid-f ast bacill us isolat ed Cultu re No acid- fast bacil susan isola jose angel 07/04 8:25 AM 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 [facility] [employer] Not Available Not Available 07/14/2024 03:21:23 05/23/20 24 07/04/2024 Mycob acter ium sp ident ified in Speci men by Organ ism speci fic cultu re microscopic observation [presence] in specimen by acid fast stain No acid-f ast bacill i seen AFB Smear No acid- fast bacil li seen 07/04 8:25 AM 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 [facility] Not Available Not Available 07/14/2024 03:21:23 05/23/20 24 07/04/2024 Mycob acter ium sp ident ified in Speci men by Organ ism speci fic cultu re interpretati on and review of laboratory results Normal Not Available Not Available 07/02 03:21:23 05/23/20 24 05/29/2024 Bacte tara ident ified in [place] te by Anaer obe cultu re microorganis m identified in specimen by culture No anaero bic organi sms isolat ed Cultu re No anaer obic organ isms isola jose angel SHIMA 05/29 8:29 AM 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 [facility] Not Available Not Available 07/14/2024 03:21:23 05/23/20 24 05/29/2024 Bacte tara ident ified in [place] te by Anaer obe cultu re interpretati on and review of laboratory results Normal Not Available Not Available 07/02 03:21:23 05/23/20 24 05/23/2024 Gluco se [Mass /volu me] in Arter ial blood glucose [mass/volume ] in capillary blood by glucometer 126 mg/dL low: 70mg/d Lhigh: 99mg/d L high Gluco se WB/PO C 126 (H) 70 - 99 mg/dL 05/23 9:43 AM 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 [facility] Not Available Not Available 07/27/2024 14:29:05 05/23/20 24 05/23/2024 Gluco se [Mass /volu me] in Arter ial blood specimen source identified Cap Finger stick Speci men Type Cap Finge rstic k 05/23 9:43 AM 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 [facility] Not Available Not Available 07/27/2024 14:29:05 05/23/20 24 05/23/2024 Gluco se [Mass /volu me] in Arter ial blood interpretati on and review of laboratory results Abnorm al Not Available Not Available 14:29:05 05/23/20 24 05/23/2024 CBC panel - Blood by Autom ated count leukocytes [#/volume] in blood by automated count 5.7 text: 4.0 - 10.7 x10e9/ L WBC 5.7 4.0 - 10.7 x10E9 /L 12/23 /2024 1:27 AM [facility]IDA Not Available Not Available 07/27/2024 14:29:05 05/23/20 24 05/23/2024 CBC panel - Blood by Autom ated count erythrocytes [#/volume] in blood by automated count 4.06 text: 3.90 - 5.20 x10e12 /L RBC Count 4.06 3.90 - 5.20 x10E1 2/L 05/23 1[facility] Not Available Not Available 07/27/2024 14:29:05 05/23/20 24 05/23/2024 CBC panel - Blood by Autom ated count hemoglobin [mass/volume ] in blood 13.3 g/dL low: 11.9g/ dLhigh : 15.8g/ dL Hemog lobin 13.3 11.9 - 15.8 g/dL 05/23 1:27 [facility] Not Available Not Available 07/27/2024 14:29:05 05/23/20 24 05/23/2024 CBC panel - Blood by Autom ated count hematocrit [volume fraction] of blood by automated count 39.3 % low: 34.8%h igh: 46.1% Hemat ocrit 39.3 34.8 - 46.1 % 05[facility] Not Available 07/27/2024 14:29:05 05/23/20 24 05/23/2024 CBC panel - Blood by Autom ated count MCV [entitic volume] by automated count 96.8 fL low: 80fLhi gh: 98fL MCV 96.8 80.0 - 98.0 fL 05/23 1:27 [facility] Not Available Not Available 07/27/2024 14:29:05 05/23/20 24 05/23/2024 CBC panel - Blood by Autom ated count MCH [entitic mass] by automated count 32.8 pg low: 26.7pg high: 33.6pg MCH 32.8 26.7 - 33.6 pg 05/23 1:[facility] Not [facility] Not Available 07/27/2024 14:29:05 05/23/20 24 05/23/2024 CBC panel - Blood by Autom ated count MCHC [mass/volume ] by automated count 33.8 g/dL low: 31.7g/ dLhigh : 36.3g/ dL MCHC 33.8 31.7 - 36.3 g/dL 05/23 1:[facility] Not Available 07/27/2024 14:29:05 05/23/20 24 05/23/2024 CBC panel - Blood by Autom ated count erythrocyte distribution width [ratio] by automated count 11.9 % low: 11.3%h igh: 14.8% RDW-C V 11.9 11.3 - 14.8 % 05/23 1:27 AM [facility] Not Available 07/27/2024 14:29:05 05/23/20 24 05/23/2024 CBC panel - Blood by Autom ated count platelets [#/volume] in blood by automated count 240 text: 150 - 420 x10e9/ L Plate let Count 240 150 - 420 x10E9 /L 05/23 1:27 AM [facility] Not Available 07/27/2024 14:29:05 05/23/20 24 05/23/2024 CBC panel - Blood by Autom ated count platelet mean volume [entitic volume] in blood by automated count 8.8 fL low: 7.8fLh igh: 11.4fL MPV 8.8 7.8 - 11.4 fL 05/23 1:27 AM [facility] Not Available 07/27/2024 14:29:05 05/23/20 24 05/23/2024 CBC panel - Blood by Autom ated count interpretati on and review of laboratory results Normal Not Available Not Available 07/03 14:29:05 05/23/20 24 05/23/2024 Renal funct ion 2000 panel - Serum or Plasm a urea nitrogen [mass/volume ] in serum or plasma 13 mg/dL low: 7mg/dL high: 26mg/d L BUN 13 7 - 26 mg/dL 05/23 1:44 AM [facility] [employer] [facility] Not Available Not Available 07/27/2024 14:29:05 05/23/20 24 05/23/2024 Renal funct ion 1999 panel - Serum or Plasm a creatinine [mass/volume ] in serum or plasma 0.6 mg/dL low: 0.56mg /dLhig h: 0.96mg /dL Creat inine 0.60 0.56 - 0.96 mg/dL 05/23 1:44 AM [facility] [employer] [facility] Not Available Not Available 07/27/2024 14:29:05 05/23/20 24 05/23/2024 Renal funct ion 1999 panel - Serum or Plasm a sodium [moles/volum e] in serum or plasma 137 mmol/ L low: 136mmo l/Lhig h: 145mmo l/L Sodiu m 137 136 - 145 mmol/ L 05/23 1:44 [facility] Not Available Not Available 07/27/2024 14:29:05 05/23/20 24 05/23/2024 Renal funct ion 1999 panel - Serum or Plasm a potassium [moles/volum e] in serum or plasma 4.5 mmol/ L low: 3.5mmo l/Lhig h: 4.5mmo l/L Potas sium 4.5 3.5 - 4.5 mmol/ L 05/23 1:44 AM [facility] [employer] [facility] Not Available Not Available 07/27/2024 14:29:05 05/23/20 24 05/23/2024 Renal funct ion 1999 panel - Serum or Plasm a chloride [moles/volum e] in serum or plasma 104 mmol/ L low: 98mmol /Lhigh : 107mmo l/L Chlor austin 104 98 - 107 mmol/ L 05/23 1:44 AM 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 Not Available Not Available 07/27/2024 14:29:05 05/23/20 24 05/23/2024 Renal funct ion 1999 panel - Serum or Plasm a carbon dioxide, total [moles/volum e] in serum or plasma 27 mmol/ L low: 22mmol /Lhigh : 29mmol /L CO2 27 22 - 29 mmol/ L 05/23 1:44 AM [facility] Not Available Not Available 07/27/2024 14:29:05 05/23/20 24 05/23/2024 Renal funct ion 1999 panel - Serum or Plasm a glucose [mass/volume ] in serum or plasma 159 mg/dL low: 70mg/d Lhigh: 99mg/d L high Gluco se 159 (H) 70 - 99 mg/dL 05/23 1:44 AM [facility] Not Available Not Available 07/27/2024 14:29:05 05/23/20 24 05/23/2024 Renal funct ion 1999 panel - Serum or Plasm a albumin [mass/volume ] in serum or plasma by bromocresol green (bcg) dye binding method 4.1 g/dL low: 3.4g/d Lhigh: 5g/dL Album in 4.1 3.4 - 5.0 g/dL 05/23 1:44 AM [facility] Not Available Not Available 07/27/2024 14:29:05 05/23/20 24 05/23/2024 Renal funct ion 1999 panel - Serum or Plasm a calcium [moles/volum e] in serum or plasma 9.2 mg/dL low: 8.4mg/ dLhigh : 10.2mg /dL Calci um 9.2 8.4 - 10.2 mg/dL 05/23 1:44 AM [facility] Not Available Not Available 07/27/2024 14:29:05 05/23/20 24 05/23/2024 Renal funct ion 1999 panel - Serum or Plasm a phosphate [mass/volume ] in serum or plasma 2.7 mg/dL low: 2.9mg/ dLhigh : 5.1mg/ dL low Phosp horus 2.7 (L) 2.9 - 5.1 mg/dL 05/23 1:44 AM [facility] Not Available Not Available 07/27/2024 14:29:05 05/23/20 24 05/23/2024 Renal funct ion 1999 panel - Serum or Plasm a anion gap 6 low: 6high: 16 Anion Gap 6 6 - 16 05/23 1:44 AM 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 Not Available Not Available 07/27/2024 14:29:05 05/23/20 24 05/23/2024 Renal funct ion 2000 panel - Serum or Plasm a urea nitrogen/cre atinine [mass ratio] in serum or plasma 22 low: 7high: 23 BUN/C reati nine Ratio 22 7 - 23 05/23 1:44 AM 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 Not Available Not Available 07/27/2024 14:29:05 05/23/20 24 05/23/2024 Renal funct ion 1999 panel - Serum or Plasm a osmolality calculated 287 text: 275 - 295 mOsm/k g Osmol ality Calcu lated 287 275 - 295 mOsm/ kg 05/23 1:44 AM 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 [facility] Not Available Not Available 07/27/2024 14:29:05 05/23/20 24 05/23/2024 Renal funct ion 1999 panel - Serum or Plasm a glomerular filtration rate/1.73 sq M.predicted [volume rate/area] in serum, plasma or blood by creatinine-b ased formula (CKD-epi 2020) text: >=90 mL/min /1.73 m2 eGFR by CKD-E PI >90 >=90 mL/mi n/1.7 3 m2 05/23 1:44 AM 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 Not Available Not Available 07/27/2024 14:29:05 05/23/20 24 05/23/2024 Renal funct ion 1999 panel - Serum or Plasm a interpretati on and review of laboratory results Abnorm al Not Available Not Available 14:29:05 05/23/20 24 05/23/2024 Magne sium [Mass /volu me] in Serum or Plasm a magnesium [mass/volume ] in serum or plasma 1.9 mg/dL low: 1.6mg/ dLhigh : 2.6mg/ dL Magne sium 1.9 1.6 - 2.6 mg/dL 05/23 1:44 AM 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 [facility] Not Available Not Available 07/27/2024 14:29:05 05/23/20 24 05/23/2024 Magne sium [Mass /volu me] in Serum or Plasm a interpretati on and review of laboratory results Normal Not Available Not Available 07/03 14:29:05 05/24/20 24 05/24/2024 Gluco se [Mass /volu me] in Arter ial blood glucose [mass/volume ] in capillary blood by glucometer 117 mg/dL low: 70mg/d Lhigh: 99mg/d L high Gluco se WB/PO C 117 (H) 70 - 99 mg/dL 05/24 9:26 PM 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 Not Available Not Available 07/27/2024 14:29:06 05/24/20 24 05/24/2024 Gluco se [Mass /volu me] in Arter ial blood specimen source identified Cap Finger stick Speci men Type Cap Finge rstic k 05/24 9:26 PM 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 Not Available Not Available 07/27/2024 14:29:06 05/24/20 24 05/24/2024 Gluco se [Mass /volu me] in Arter ial blood interpretati on and review of laboratory results Abnorm al Not Available Not Available 14:29:06 05/24/20 24 05/24/2024 Gluco se [Mass /volu me] in Arter ial blood glucose [mass/volume ] in capillary blood by glucometer 201 mg/dL low: 70mg/d Lhigh: 99mg/d L high Gluco se WB/PO C 201 (H) 70 - 99 mg/dL 05/24 8:21 PM 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 Not Available Not Available 07/27/2024 14:29:06 05/24/20 24 05/24/2024 Gluco se [Mass /volu me] in Arter ial blood specimen source identified Cap Finger stick Speci men Type Cap Finge rstic k 05/24 8:21 PM 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 Not Available Not Available 07/27/2024 14:29:06 05/24/20 24 05/24/2024 Gluco se [Mass /volu me] in Arter ial blood interpretati on and review of laboratory results Abnorm al Not Available Not Available 14:29:06 05/24/20 24 05/24/2024 Gluco se [Mass /volu me] in Arter ial blood glucose [mass/volume ] in capillary blood by glucometer 122 mg/dL low: 70mg/d Lhigh: 99mg/d L high Gluco se WB/PO C 122 (H) 70 - 99 mg/dL 05/24 1:02 PM 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 Not Available Not Available 07/27/2024 14:29:06 05/24/20 24 05/24/2024 Gluco se [Mass /volu me] in Arter ial blood specimen source identified Cap Finger stick Speci men Type Cap Finge rstic k 05/24 1:02 PM 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 Not Available Not Available 07/27/2024 14:29:06 05/24/20 24 05/24/2024 Gluco se [Mass /volu me] in Arter ial blood interpretati on and review of laboratory results Abnorm al Not Available Not Available 14:29:06 05/24/20 24 05/24/2024 CBC panel - Blood by Autom ated count leukocytes [#/volume] in blood by automated count 6 text: 4.0 - 10.7 x10e9/ L WBC 6.0 4.0 - 10.7 x10E9 /L 05/24 11:21 AM 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 [facility] Not Available Not Available 07/27/2024 14:29:06 05/24/20 24 05/24/2024 CBC panel - Blood by Autom ated count erythrocytes [#/volume] in blood by automated count 4.2 text: 3.90 - 5.20 x10e12 /L RBC Count 4.20 3.90 - 5.20 x10E1 2/L 05/24 11:21 AM 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 Not Available Not Available 07/27/2024 14:29:06 05/24/20 24 05/24/2024 CBC panel - Blood by Autom ated count hemoglobin [mass/volume ] in blood 13.8 g/dL low: 11.9g/ dLhigh : 15.8g/ dL Hemog lobin 13.8 11.9 - 15.8 g/dL 05/24 11:21 AM [facility] [facility] Not Available Not Available 07/27/2024 14:29:06 05/24/2005/24/2024 CBC panel - Blood by Autom ated count hematocrit [volume fraction] of blood by automated count 40.2 % low: 34.8%h igh: 46.1% Hemat ocrit 40.2 34.8 - 46.1 % 05/24 11:21 AM [facility] Not Available Not Available 07/27/2024 14:29:06 05/24/2005/24/2024 CBC panel - Blood by Autom ated count MCV [entitic volume] by automated count 95.7 fL low: 80fLhi gh: 98fL MCV 95.7 80.0 - 98.0 fL 05/24 11:21 AM [facility] Not Available Not Available 07/27/2024 14:29:06 05/24/2005/24/2024 CBC panel - Blood by Autom ated count MCH [entitic mass] by automated count 32.9 pg low: 26.7pg high: 33.6pg MCH 32.9 26.7 - 33.6 pg 05/24 11:21 AM [facility] Not Available Not Available 07/27/2024 14:29:06 05/24/2005/24/2024 CBC panel - Blood by Autom ated count MCHC [mass/volume ] by automated count 34.3 g/dL low: 31.7g/ dLhigh : 36.3g/ dL MCHC 34.3 31.7 - 36.3 g/dL 05/24 11:21 AM [facility] Not Available Not Available 07/27/2024 14:29:06 05/24/2005/24/2024 CBC panel - Blood by Autom ated count erythrocyte distribution width [ratio] by automated count 11.9 % low: 11.3%h igh: 14.8% RDW-C V 11.9 11.3 - 14.8 % 05/24 11:21 AM [facility] Not Available Not Available 07/27/2024 14:29:06 05/24/20 24 05/24/2024 CBC panel - Blood by Autom ated count platelets [#/volume] in blood by automated count 249 text: 150 - 420 x10e9/ L Plate let Count 249 150 - 420 x10E9 /L 05/24 11:21 AM [facility] Not Available Not Available 07/27/2024 14:29:06 05/24/2005/24/2024 CBC panel - Blood by Autom ated count platelet mean volume [entitic volume] in blood by automated count 8.8 fL low: 7.8fLh igh: 11.4fL MPV 8.8 7.8 - 11.4 fL 05/24 11:21 AM [facility] Not Available Not Available 07/27/2024 14:29:06 05/24/20 24 05/24/2024 CBC panel - Blood by Autom ated count interpretati on and review of laboratory results Normal Not Available Not Available 07/03 14:29:06 05/24/20 24 05/24/2024 Renal funct ion 1999 panel - Serum or Plasm a urea nitrogen [mass/volume ] in serum or plasma 13 mg/dL low: 7mg/dL high: 26mg/d L BUN 13 7 - 26 mg/dL 05/24 11:35 AM [facility] Not Available Not Available 07/27/2024 14:29:05 05/24/20 24 05/24/2024 Renal funct ion 2000 panel - Serum or Plasm a creatinine [mass/volume ] in serum or plasma 0.58 mg/dL low: 0.56mg /dLhig h: 0.96mg /dL Creat inine 0.58 0.56 - 0.96 mg/dL 05/24 11:35 AM [facility] Not Available Not Available 07/27/2024 14:29:05 05/24/20 24 05/24/2024 Renal funct ion 1999 panel - Serum or Plasm a sodium [moles/volum e] in serum or plasma 139 mmol/ L low: 136mmo l/Lhig h: 145mmo l/L Sodiu m 139 136 - 145 mmol/ L 05/24 11:35 AM 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 Not Available Not Available 07/27/2024 14:29:05 05/24/20 24 05/24/2024 Renal funct ion 1999 panel - Serum or Plasm a potassium [moles/volum e] in serum or plasma 4.6 mmol/ L low: 3.5mmo l/Lhig h: 4.5mmo l/L high Potas sium 4.6 (H) 3.5 - 4.5 mmol/ L 05/24 11:35 AM 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 Not Available Not Available 07/27/2024 14:29:05 05/24/20 24 05/24/2024 Renal funct ion 1999 panel - Serum or Plasm a chloride [moles/volum e] in serum or plasma 99 mmol/ L low: 98mmol /Lhigh : 107mmo l/L Chlor austin 99 98 - 107 mmol/ L 05/24 11:35 AM [facility] Not Available Not Available 07/27/2024 14:29:05 05/24/20 24 05/24/2024 Renal funct ion 1999 panel - Serum or Plasm a carbon dioxide, total [moles/volum e] in serum or plasma 26 mmol/ L low: 22mmol /Lhigh : 29mmol /L CO2 26 22 - 29 mmol/ L 05/24 11:35 AM [facility] Not Available Not Available 07/27/2024 14:29:05 05/24/20 24 05/24/2024 Renal funct ion 1999 panel - Serum or Plasm a glucose [mass/volume ] in serum or plasma 203 mg/dL low: 70mg/d Lhigh: 99mg/d L high Gluco se 203 (H) 70 - 99 mg/dL 05/24 11:35 AM 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 Not Available Not Available 07/27/2024 14:29:05 05/24/20 24 05/24/2024 Renal funct ion 1999 panel - Serum or Plasm a albumin [mass/volume ] in serum or plasma by bromocresol green (bcg) dye binding method 4.2 g/dL low: 3.4g/d Lhigh: 5g/dL Album in 4.2 3.4 - 5.0 g/dL 05/24 11:35 AM 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 Not Available Not Available 07/27/2024 14:29:05 05/24/20 24 05/24/2024 Renal funct ion 1999 panel - Serum or Plasm a calcium [moles/volum e] in serum or plasma 9.3 mg/dL low: 8.4mg/ dLhigh : 10.2mg /dL Calci um 9.3 8.4 - 10.2 mg/dL 05/24 11:35 AM 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 [facility] Not Available Not Available 07/27/2024 14:29:05 05/24/20 24 05/24/2024 Renal funct ion 1999 panel - Serum or Plasm a phosphate [mass/volume ] in serum or plasma 3.5 mg/dL low: 2.9mg/ dLhigh : 5.1mg/ dL Phosp horus 3.5 2.9 - 5.1 mg/dL 05/24 11:35 AM 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 [facility] Not Available Not Available 07/27/2024 14:29:05 05/24/20 24 05/24/2024 Renal funct ion 1999 panel - Serum or Plasm a anion gap 14 low: 6high: 16 Anion Gap 14 6 - 16 05/24 11:35 AM 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 Not Available Not Available 07/27/2024 14:29:05 05/24/20 24 05/24/2024 Renal funct ion 1999 panel - Serum or Plasm a urea nitrogen/cre atinine [mass ratio] in serum or plasma 22 low: 7high: 23 BUN/C reati nine Ratio 22 7 - 23 05/24 11:35 AM 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 [facility] Not Available Not Available 07/27/2024 14:29:05 05/24/20 24 05/24/2024 Renal funct ion 2000 panel - Serum or Plasm a osmolality calculated 294 text: 275 - 295 mOsm/k g Osmol lubna [place] lated 294 275 - 295 mOsm/ kg 05/24 11:35 AM 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 [facility] Not Available Not Available 07/27/2024 14:29:05 05/24/20 24 05/24/2024 Renal funct ion 2000 panel - Serum or Plasm a glomerular filtration rate/1.73 sq M.predicted [volume rate/area] in serum, plasma or blood by creatinine-b ased formula (CKD-epi 2020) text: >=90 mL/min /1.73 m2 eGFR by CKD-E PI >90 >=90 mL/mi n/1.7 3 m2 05/24 11:35 AM [facility] Not Available Not Available 07/27/2024 14:29:05 05/24/20 24 05/24/2024 Renal funct ion 2000 panel - Serum or Plasm a interpretati on and review of laboratory results Abnorm al Not Available Not Available 14:29:05 05/24/20 24 05/24/2024 Magne sium [Mass /volu me] in Serum or Plasm a magnesium [mass/volume ] in serum or plasma 1.8 mg/dL low: 1.6mg/ dLhigh : 2.6mg/ dL Magne sium 1.8 1.6 - 2.6 mg/dL 05/24 11:35 AM [facility] Not Available Not Available 07/27/2024 14:29:05 05/24/20 24 05/24/2024 Magne sium [Mass /volu me] in Serum or Plasm a interpretati on and review of laboratory results Normal Not Available Not Available 07/03 14:29:05 05/24/20 24 05/24/2024 Gluco se [Mass /volu me] in Arter ial blood glucose [mass/volume ] in capillary blood by glucometer 210 mg/dL low: 70mg/d Lhigh: 99mg/d L high Gluco se WB/PO C 210 (H) 70 - 99 mg/dL 05/24 8:37 AM 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 [facility] Not Available Not Available 07/27/2024 14:29:05 05/24/20 24 05/24/2024 Gluco se [Mass /volu me] in Arter ial blood specimen source identified Cap Finger stick Speci men Type Cap Johne rstic k 05/24 8:37 AM 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 [facility] Not Available Not Available 07/27/2024 14:29:05 05/24/20 24 05/24/2024 Gluco se [Mass /volu me] in Arter ial blood interpretati on and review of laboratory results Abnorm al Not Available Not Available 14:29:05 05/24/20 24 05/24/2024 Gluco se [Mass /volu me] in Arter ial blood glucose [mass/volume ] in capillary blood by glucometer 169 mg/dL low: 70mg/d Lhigh: 99mg/d L high Gluco se WB/PO C 169 (H) 70 - 99 mg/dL 05/23 11:24 PM 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 Not Available Not Available 07/27/2024 14:29:05 05/24/20 24 05/24/2024 Gluco se [Mass /volu me] in Arter ial blood specimen source identified Cap Finger stick Speci men Type Cap Johne rstic k 05/23 11:24 PM 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 Not Available Not Available 07/27/2024 14:29:05 05/24/20 24 05/24/2024 Gluco se [Mass /volu me] in Arter ial blood interpretati on and review of laboratory results Abnorm al Not Available Not Available 14:29:05 05/25/20 24 05/25/2024 Gluco se [Mass /volu me] in Arter ial blood glucose [mass/volume ] in capillary blood by glucometer 117 mg/dL low: 70mg/d Lhigh: 99mg/d L high Gluco se WB/PO C 117 (H) 70 - 99 mg/dL 05/25 10:15 PM 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 [facility] Not Available Not Available 07/27/2024 14:29:07 05/25/20 24 05/25/2024 Gluco se [Mass /volu me] in Arter ial blood specimen source identified Cap Finger stick Speci men Type Cap Johne rstic k 05/25 10:15 PM 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 [facility] Not Available Not Available 07/27/2024 14:29:07 05/25/20 24 05/25/2024 Gluco se [Mass /volu me] in Arter ial blood interpretati on and review of laboratory results Abnorm al Not Available Not Available 14:29:07 05/25/20 24 05/25/2024 Gluco se [Mass /volu me] in Arter ial blood glucose [mass/volume ] in capillary blood by glucometer 129 mg/dL low: 70mg/d Lhigh: 99mg/d L high Gluco se WB/PO C 129 (H) 70 - 99 mg/dL 05/25 5:17 PM 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 [facility] Not Available Not Available 07/27/2024 14:29:06 05/25/20 24 05/25/2024 Gluco se [Mass /volu me] in Arter ial blood specimen source identified Cap Finger stick Speci men Type Cap Johne rstic k 05/25 5:17 PM 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 [facility] Not Available Not Available 07/27/2024 14:29:06 05/25/20 24 05/25/2024 Gluco se [Mass /volu me] in Arter ial blood interpretati on and review of laboratory results Abnorm al Not Available Not Available 14:29:06 05/25/20 24 05/25/2024 Gluco se [Mass /volu me] in Arter ial blood glucose [mass/volume ] in capillary blood by glucometer 192 mg/dL low: 70mg/d Lhigh: 99mg/d L high Gluco se WB/PO C 192 (H) 70 - 99 mg/dL 05/25 5:03 PM 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 [facility] Not Available Not Available 07/27/2024 14:29:06 05/25/20 24 05/25/2024 Gluco se [Mass /volu me] in Arter ial blood specimen source identified Cap Finger stick Speci men Type Cap Finge rstic k 05/25 5:03 PM 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 Not Available Not Available 07/27/2024 14:29:06 05/25/20 24 05/25/2024 Gluco se [Mass /volu me] in Arter ial blood interpretati on and review of laboratory results Abnorm al Not Available Not Available 14:29:06 05/25/20 24 05/25/2024 Gluco se [Mass /volu me] in Arter ial blood glucose [mass/volume ] in capillary blood by glucometer 179 mg/dL low: 70mg/d Lhigh: 99mg/d L high Gluco se WB/PO C 179 (H) 70 - 99 mg/dL 05/25 8:11 AM 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 [facility] Not Available Not Available 07/27/2024 14:29:06 05/25/20 24 05/25/2024 Gluco se [Mass /volu me] in Arter ial blood specimen source identified Cap Finger stick Speci men Type Cap Finge rstic k 05/25 8:11 AM 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 [facility] Not Available Not Available 07/27/2024 14:29:06 05/25/20 24 05/25/2024 Gluco se [Mass /volu me] in Arter ial blood interpretati on and review of laboratory results Abnorm al Not Available Not Available 14:29:06 05/25/20 24 05/25/2024 CBC panel - Blood by Autom ated count leukocytes [#/volume] in blood by automated count 6 text: 4.0 - 10.7 x10e9/ L WBC 6.0 4.0 - 10.7 x10E9 /L 05/25 3:54 AM 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 [facility] Not Available Not Available 07/27/2024 14:29:06 05/25/20 24 05/25/2024 CBC panel - Blood by Autom ated count erythrocytes [#/volume] in blood by automated count 3.8 text: 3.90 - 5.20 x10e12 /L low RBC Count 3.80 (L) 3.90 - 5.20 x10E1 2/L 05/25 3:54 AM [facility] Not Available Not Available 07/27/2024 14:29:06 05/25/20 24 05/25/2024 CBC panel - Blood by Autom ated count hemoglobin [mass/volume ] in blood 12.4 g/dL low: 11.9g/ dLhigh : 15.8g/ dL Hemog lobin 12.4 11.9 - 15.8 g/dL 05/25 3:54 AM [facility] Not Available Not Available 07/27/2024 14:29:05/25/2005/25/2024 CBC panel - Blood by Autom ated count hematocrit [volume fraction] of blood by automated count 36.8 % low: 34.8%h igh: 46.1% Hemat ocrit 36.8 34.8 - 46.1 % 05/25 3:54 AM [facility] A[facility] Not Available Not Available 07/27/2024 14:29:06 05/25/20 24 05/25/2024 CBC panel - Blood by Autom ated count MCV [entitic volume] by automated count 96.8 fL low: 80fLhi gh: 98fL MCV 96.8 80.0 - 98.0 fL 05/25 3:54 AM [facility] Not Available Not Available 07/27/2024 14:29:05/25/20 24 05/25/2024 CBC panel - Blood by Autom ated count MCH [entitic mass] by automated count 32.6 pg low: 26.7pg high: 33.6pg MCH 32.6 26.7 - 33.6 pg 05/25 3:54 AM [facility] Not Available Not Available 07/27/2024 14:29:06 05/25/20 24 05/25/2024 CBC panel - Blood by Autom ated count MCHC [mass/volume ] by automated count 33.7 g/dL low: 31.7g/ dLhigh : 36.3g/ dL MCHC 33.7 31.7 - 36.3 g/dL 05/25 3:54 AM [facility] Not Available Not Available 07/27/2024 14:29:06 05/25/20 24 05/25/2024 CBC panel - Blood by Autom ated count erythrocyte distribution width [ratio] by automated count 11.9 % low: 11.3%h igh: 14.8% RDW-C V 11.9 11.3 - 14.8 % 05/25 3:54 AM [facility] Not Available Not Available 07/27/2024 14:29:06 05/25/20 24 05/25/2024 CBC panel - Blood by Autom ated count platelets [#/volume] in blood by automated count 219 text: 150 - 420 x10e9/ L Plate let Count 219 150 - 420 x10E9 /L 05/25 3:[facility] Not Available Not Available 07/27/2024 14:29:06 05/25/20 24 05/25/2024 CBC panel - Blood by Autom ated count platelet mean volume [entitic volume] in blood by automated count 8.8 fL low: 7.8fLh igh: 11.4fL MPV 8.8 7.8 - 11.4 fL 05/25 3:54 AM [facility] Not Available Not Available 07/27/2024 14:29:06 05/25/20 24 05/25/2024 CBC panel - Blood by Autom ated count interpretati on and review of laboratory results Abnorm al Not Available Not Available 14:29:06 05/25/20 24 05/25/2024 Renal funct ion 2000 panel - Serum or Plasm a urea nitrogen [mass/volume ] in serum or plasma 15 mg/dL low: 7mg/dL high: 26mg/d L BUN 15 7 - 26 mg/dL 05/25 4:15 AM [facility] Not Available Not Available 07/27/2024 14:29:06 05/25/20 24 05/25/2024 Renal funct ion 2000 panel - Serum or Plasm a creatinine [mass/volume ] in serum or plasma 0.54 mg/dL low: 0.56mg /dLhig h: 0.96mg /dL low Creat inine 0.54 (L) 0.56 - 0.96 mg/dL 05/25 4:15 AM 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 [facility] Not Available Not Available 07/27/2024 14:29:06 05/25/20 24 05/25/2024 Renal funct ion 1999 panel - Serum or Plasm a sodium [moles/volum e] in serum or plasma 136 mmol/ L low: 136mmo l/Lhig h: 145mmo l/L Sodiu m 136 136 - 145 mmol/ L 05/25 4:15 AM 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 [employer] Not Available Not Available 07/27/2024 14:29:06 05/25/20 24 05/25/2024 Renal funct ion 1999 panel - Serum or Plasm a potassium [moles/volum e] in serum or plasma 4.3 mmol/ L low: 3.5mmo l/Lhig h: 4.5mmo l/L Potas sium 4.3 3.5 - 4.5 mmol/ L 05/25 4:15 AM 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 [employer] Not Available Not Available 07/27/2024 14:29:06 05/25/20 24 05/25/2024 Renal funct ion 1999 panel - Serum or Plasm a chloride [moles/volum e] in serum or plasma 104 mmol/ L low: 98mmol /Lhigh : 107mmo l/L Chlor austin 104 98 - 107 mmol/ L 05/25 4:15 AM 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 [employer] Not Available Not Available 07/27/2024 14:29:06 05/25/20 24 05/25/2024 Renal funct ion 1999 panel - Serum or Plasm a carbon dioxide, total [moles/volum e] in serum or plasma 25 mmol/ L low: 22mmol /Lhigh : 29mmol /L CO2 25 22 - 29 mmol/ L 05/25 4:15 AM 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 [employer] Not Available Not Available 07/27/2024 14:29:06 05/25/20 24 05/25/2024 Renal funct ion 1999 panel - Serum or Plasm a glucose [mass/volume ] in serum or plasma 156 mg/dL low: 70mg/d Lhigh: 99mg/d L high Gluco se 156 (H) 70 - 99 mg/dL 05/25 4:15 AM 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 [employer] Not Available Not Available 07/27/2024 14:29:06 05/25/20 24 05/25/2024 Renal funct ion 1999 panel - Serum or Plasm a albumin [mass/volume ] in serum or plasma by bromocresol green (bcg) dye binding method 3.8 g/dL low: 3.4g/d Lhigh: 5g/dL Album in 3.8 3.4 - 5.0 g/dL 05/25 4:15 AM 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 [employer] Not Available Not Available 07/27/2024 14:29:06 05/25/20 24 05/25/2024 Renal funct ion 1999 panel - Serum or Plasm a calcium [moles/volum e] in serum or plasma 8.9 mg/dL low: 8.4mg/ dLhigh : 10.2mg /dL Calci um 8.9 8.4 - 10.2 mg/dL 05/25 4:15 AM 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 [employer] Not Available Not Available 07/27/2024 14:29:06 05/25/20 24 05/25/2024 Renal funct ion 1999 panel - Serum or Plasm a phosphate [mass/volume ] in serum or plasma 3.4 mg/dL low: 2.9mg/ dLhigh : 5.1mg/ dL Phosp horus 3.4 2.9 - 5.1 mg/dL 05/25 4:15 AM 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 [employer] Not Available Not Available 07/27/2024 14:29:06 05/25/20 24 05/25/2024 Renal funct ion 1999 panel - Serum or Plasm a anion gap 7 low: 6high: 16 Anion Gap 7 6 - 16 05/25 4:15 AM 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 Not Available Not Available 07/27/2024 14:29:06 05/25/20 24 05/25/2024 Renal funct ion 1999 panel - Serum or Plasm a urea nitrogen/cre atinine [mass ratio] in serum or plasma 28 low: 7high: 23 high BUN/C reati nine Ratio 28 (H) 7 - 23 05/25 4:15 AM 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 [employer] Not Available Not Available 07/27/2024 14:29:06 05/25/20 24 05/25/2024 Renal funct ion 2000 panel - Serum or Plasm a osmolality calculated 286 text: 275 - 295 mOsm/k g Osmol ality Calcu lated 286 275 - 295 mOsm/ kg 05/25 4:15 AM 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 [employer] Not Available Not Available 07/27/2024 14:29:06 05/25/20 24 05/25/2024 Renal funct ion 2000 panel - Serum or Plasm a glomerular filtration rate/1.73 sq M.predicted [volume rate/area] in serum, plasma or blood by creatinine-b ased formula (CKD-epi 2020) text: >=90 mL/min /1.73 m2 eGFR by CKD-E PI >90 >=90 mL/mi n/1.7 3 m2 05/25 4:15 AM [employer] [facility] Not Available Not Available 07/27/2024 14:29:06 05/25/20 24 05/25/2024 Renal funct ion 2000 panel - Serum or Plasm a interpretati on and review of laboratory results Abnorm al Not Available Not Available 14:29:06 05/25/20 24 05/25/2024 Magne sium [Mass /volu me] in Serum or Plasm a magnesium [mass/volume ] in serum or plasma 1.7 mg/dL low: 1.6mg/ dLhigh : 2.6mg/ dL Magne sium 1.7 1.6 - 2.6 mg/dL 05/25 4:15 AM [employer] [facility] Not Available Not Available 07/27/2024 14:29:06 05/25/20 24 05/25/2024 Magne sium [Mass /volu me] in Serum or Plasm a interpretati on and review of laboratory results Normal Not Available Not Available 07/03 14:29:06 05/25/20 24 05/25/2024 Creat ine kinas e [Enzy matic activ ity/v olume ] in Serum or Plasm a creatine kinase [enzymatic activity/vol ume] in serum or plasma 141 U/L low: 30U/Lh igh: 200U/L CK Total 141 30 - 200 U/L 05/25 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[facility] Not Available Not Available 07/27/2024 14:29:06 05/25/20 24 05/25/2024 Creat ine kinas e [Enzy matic activ ity/v olume ] in Serum or Plasm a interpretati on and review of laboratory results Normal Not Available Not Available 07/03 14:29:06 05/26/20 24 05/26/2024 Gluco se [Mass /volu me] in Arter ial blood glucose [mass/volume ] in capillary blood by glucometer 165 mg/dL low: 70mg/d Lhigh: 99mg/d L high Gluco se WB/PO C 165 (H) 70 - 99 mg/dL 05/26 9:37 PM 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 [facility] Not Available Not Available 07/27/2024 14:29:07 05/26/20 24 05/26/2024 Gluco se [Mass /volu me] in Arter ial blood specimen source identified Cap Finger stick Speci men Type Cap Finge rstic k 05/26 9:37 PM 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 [facility] Not Available Not Available 07/27/2024 14:29:07 05/26/20 24 05/26/2024 Gluco se [Mass /volu me] in Arter ial blood interpretati on and review of laboratory results Abnorm al Not Available Not Available 14:29:07 05/26/20 24 05/26/2024 Gluco se [Mass /volu me] in Arter ial blood glucose [mass/volume ] in capillary blood by glucometer 146 mg/dL low: 70mg/d Lhigh: 99mg/d L high Gluco se WB/PO C 146 (H) 70 - 99 mg/dL 05/26 4:40 PM 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 [facility] Not Available Not Available 07/27/2024 14:29:07 05/26/20 24 05/26/2024 Gluco se [Mass /volu me] in Arter ial blood specimen source identified Cap Finger stick Speci men Type Cap Josh rstic k 05/26 4:40 PM 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 [employer] [facility] Not Available Not Available 07/27/2024 14:29:07 05/26/20 24 05/26/2024 Gluco se [Mass /volu me] in Arter ial blood interpretati on and review of laboratory results Abnorm al Not Available Not Available 14:29:07 05/26/20 24 05/26/2024 Gluco se [Mass /volu me] in Arter ial blood glucose [mass/volume ] in capillary blood by glucometer 193 mg/dL low: 70mg/d Lhigh: 99mg/d L high Gluco se WB/PO C 193 (H) 70 - 99 mg/dL 05/26 12:01 PM 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 [employer] [facility] Not Available Not Available 07/27/2024 14:29:07 05/26/20 24 05/26/2024 Gluco se [Mass /volu me] in Arter ial blood specimen source identified Cap Finger stick Speci men Type Cap Johne rstic k 05/26 12:01 PM 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IDA Not Available Not Available 07/27/2024 14:29:07 05/26/20 24 05/26/2024 Gluco se [Mass /volu me] in Arter ial blood interpretati on and review of laboratory results Abnorm al Not Available Not Available 14:29:07 05/26/20 24 05/26/2024 Gluco se [Mass /volu me] in Arter ial blood glucose [mass/volume ] in capillary blood by glucometer 122 mg/dL low: 70mg/d Lhigh: 99mg/d L high Gluco se WB/PO C 122 (H) 70 - 99 mg/dL 05/26 7:46 AM 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 [employer] [facility] Not Available Not Available 07/27/2024 14:29:07 05/26/20 24 05/26/2024 Gluco se [Mass /volu me] in Arter ial blood specimen source identified Cap Finger stick Speci men Type Cap Finge rstic k 05/26 7:46 AM 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 [employer] AT[facility] Not Available Not Available 07/27/2024 14:29:07 05/26/20 24 05/26/2024 Gluco se [Mass /volu me] in Arter ial blood interpretati on and review of laboratory results Abnorm al Not Available Not Available 14:29:07 05/26/20 24 05/26/2024 CBC panel - Blood by Autom ated count leukocytes [#/volume] in blood by automated count 6.1 text: 4.0 - 10.7 x10e9/ L WBC 6.1 4.0 - 10.7 x10E9 /L 05/26 7:39 AM 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 [employer]IDA Not Available Not Available 07/27/2024 14:29:07 05/26/20 24 05/26/2024 CBC panel - Blood by Autom ated count erythrocytes [#/volume] in blood by automated count 4.03 text: 3.90 - 5.20 x10e12 /L RBC Count 4.03 3.90 - 5.20 x10E1 2/L 05/26 7:39 AM 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 [employer] Not Available Not Available 07/27/2024 14:29:07 05/26/20 24 05/26/2024 CBC panel - Blood by Autom ated count hemoglobin [mass/volume ] in blood 13.3 g/dL low: 11.9g/ dLhigh : 15.8g/ dL Hemog lobin 13.3 11.9 - 15.8 g/dL 05/26 7:39 AM 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 [employer] Not Available Not Available 07/27/2024 14:29:07 05/26/20 24 05/26/2024 CBC panel - Blood by Autom ated count hematocrit [volume fraction] of blood by automated count 39.2 % low: 34.8%h igh: 46.1% Hemat ocrit 39.2 34.8 - 46.1 % 05/26 7:39 AM 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 [facility] AT[facility] AIDA Not Available Not Available 07/27/2024 14:29:07 05/26/20 24 05/26/2024 CBC panel - Blood by Autom ated count MCV [entitic volume] by automated count 97.3 fL low: 80fLhi gh: 98fL MCV 97.3 80.0 - 98.0 fL 05/26 7:39 [facility] Not Available 07/27/2024 14:29:07 05/26/20 24 05/26/2024 CBC panel - Blood by Autom ated count MCH [entitic mass] by automated count 33 pg low: 26.7pg high: 33.6pg MCH 33.0 26.7 - 33.6 pg 05/26 7:39 [facility] Not Available 07/27/2024 14:29:07 05/26/20 24 05/26/2024 CBC panel - Blood by Autom ated count MCHC [mass/volume ] by automated count 33.9 g/dL low: 31.7g/ dLhigh : 36.3g/ dL MCHC 33.9 31.7 - 36.3 g/dL 05/26 7:39 [facility] Not Available 07/27/2024 14:29:07 05/26/20 24 05/26/2024 CBC panel - Blood by Autom ated count erythrocyte distribution width [ratio] by automated count 11.9 % low: 11.3%h igh: 14.8% RDW-C V 11.9 11.3 - 14.8 % 05/26 7:39 [facility] Not Available 07/27/2024 14:29:07 05/26/2005/26/2024 CBC panel - Blood by Autom ated count platelets [#/volume] in blood by automated count 225 text: 150 - 420 x10e9/ L Plate let Count 225 150 - 420 x10E9 /L 05/26 7:39 [facility] Not [facility] Not Available 07/27/2024 14:29:07 05/26/20 24 05/26/2024 CBC panel - Blood by Autom ated count platelet mean volume [entitic volume] in blood by automated count 8.6 fL low: 7.8fLh igh: 11.4fL MPV 8.6 7.8 - 11.4 fL 05/26 7:39 AM [facility] [employer] AT[facility] AIDA Not Available Not Available 07/27/2024 14:29:07 05/26/20 24 05/26/2024 CBC panel - Blood by Autom ated count interpretati on and review of laboratory results Normal Not Available Not Available 07/03 14:29:07 05/26/20 24 05/26/2024 Renal funct ion 1999 panel - Serum or Plasm a urea nitrogen [mass/volume ] in serum or plasma 13 mg/dL low: 7mg/dL high: 26mg/d L BUN 13 7 - 26 mg/dL 05/26 7:59 AM [facility] [facility] Not Available Not Available 07/27/2024 14:29:07 05/26/20 24 05/26/2024 Renal funct ion 1999 panel - Serum or Plasm a creatinine [mass/volume ] in serum or plasma 0.51 mg/dL low: 0.56mg /dLhig h: 0.96mg /dL low Creat inine 0.51 (L) 0.56 - 0.96 mg/dL 05/26 7:59 AM [facility] HOSPI AIDA Not Available Not Available 07/27/2024 14:29:07 05/26/20 24 05/26/2024 Renal funct ion 1999 panel - Serum or Plasm a sodium [moles/volum e] in serum or plasma 135 mmol/ L low: 136mmo l/Lhig h: 145mmo l/L low Sodiu m 135 (L) 136 - 145 mmol/ L 05/26 7:59 AM [facility] [employer] H[facility] AIDA Not Available Not Available 07/27/2024 14:29:07 05/26/20 24 05/26/2024 Renal funct ion 1999 panel - Serum or Plasm a potassium [moles/volum e] in serum or plasma 4.9 mmol/ L low: 3.5mmo l/Lhig h: 4.5mmo l/L high Potas sium 4.9 (H) 3.5 - 4.5 mmol/ L 05/26 7:59 AM 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 [facility] ATORY [facility]OS[facility] AIDA Not Available Not Available 07/27/2024 14:29:07 05/26/20 24 05/26/2024 Renal funct ion 1999 panel - Serum or Plasm a chloride [moles/volum e] in serum or plasma 105 mmol/ L low: 98mmol /Lhigh : 107mmo l/L Chlor [place] 105 98 - 107 mmol/ L 05/26 7:59 AM 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 [facility] [employer] ATORY HOSPI AIDA Not Available Not Available 07/27/2024 14:29:07 05/26/20 24 05/26/2024 Renal funct ion 1999 panel - Serum or Plasm a carbon dioxide, total [moles/volum e] in serum or plasma 24 mmol/ L low: 22mmol /Lhigh : 29mmol /L CO2 24 22 - 29 mmol/ L 05/26 7:59 AM 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 [facility] [employer] ATORY HOSPI AIDA Not Available Not Available 07/27/2024 14:29:07 05/26/20 24 05/26/2024 Renal funct ion 1999 panel - Serum or Plasm a glucose [mass/volume ] in serum or plasma 117 mg/dL low: 70mg/d Lhigh: 99mg/d L high Gluco se 117 (H) 70 - 99 mg/dL 05/26 7:59 AM 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 [employer] ATORY [facility]OS[facility] AIDA Not Available Not Available 07/27/2024 14:29:07 05/26/20 24 05/26/2024 Renal funct ion 1999 panel - Serum or Plasm a albumin [mass/volume ] in serum or plasma by bromocresol green (bcg) dye binding method 4.2 g/dL low: 3.4g/d Lhigh: 5g/dL Album in 4.2 3.4 - 5.0 g/dL 05/26 7:59 AM 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 [employer] ATORY [facility] AIDA Not Available Not Available 07/27/2024 14:29:07 05/26/20 24 05/26/2024 Renal funct ion 1999 panel - Serum or Plasm a calcium [moles/volum e] in serum or plasma 9.6 mg/dL low: 8.4mg/ dLhigh : 10.2mg /dL Calci um 9.6 8.4 - 10.2 mg/dL 05/26 7:59 AM 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IDA Not Available Not Available 07/27/2024 14:29:07 05/26/20 24 05/26/2024 Renal funct ion 2000 panel - Serum or Plasm a phosphate [mass/volume ] in serum or plasma 3.5 mg/dL low: 2.9mg/ dLhigh : 5.1mg/ dL Phosp horus 3.5 2.9 - 5.1 mg/dL 05/26 7:59 AM 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IDA Not Available Not Available 07/27/2024 14:29:07 05/26/20 24 05/26/2024 Renal funct ion 2000 panel - Serum or Plasm a anion gap 6 low: 6high: 16 Anion Gap 6 6 - 16 05/26 7:59 AM 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 [employer] ATORY [facility] AIDA Not Available Not Available 07/27/2024 14:29:07 05/26/20 24 05/26/2024 Renal funct ion 2000 panel - Serum or Plasm a urea nitrogen/cre atinine [mass ratio] in serum or plasma 25 low: 7high: 23 high BUN/C reati nine Ratio 25 (H) 7 - 23 05/26 7:59 AM 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 [employer] ATORY [facility] AIDA Not Available Not Available 07/27/2024 14:29:07 05/26/20 24 05/26/2024 Renal funct ion 2000 panel - Serum or Plasm a osmolality calculated 281 text: 275 - 295 mOsm/k g Osmol ality Calcu lated 281 275 - 295 mOsm/ kg 05/26 7:59 AM 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 [employer] ATORY [facility] AIDA Not Available Not Available 07/27/2024 14:29:07 05/26/20 24 05/26/2024 Renal funct ion 2000 panel - Serum or Plasm a glomerular filtration rate/1.73 sq M.predicted [volume rate/area] in serum, plasma or blood by creatinine-b ased formula (CKD-epi 2020) text: >=90 mL/min /1.73 m2 eGFR by CKD-E PI >90 >=90 mL/mi n/1.7 3 m2 05/26 7:59 AM 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 [employer] [facility] Not Available Not Available 07/27/2024 14:29:07 05/26/20 24 05/26/2024 Renal funct ion 2000 panel - Serum or Plasm a interpretati on and review of laboratory results Abnorm al Not Available Not Available 14:29:07 05/26/20 24 05/26/2024 Magne sium [Mass /volu me] in Serum or Plasm a magnesium [mass/volume ] in serum or plasma 1.7 mg/dL low: 1.6mg/ dLhigh : 2.6mg/ dL Magne sium 1.7 1.6 - 2.6 mg/dL 05/26 7:59 AM [employer] [facility] Not Available Not Available 07/27/2024 14:29:07 05/26/20 24 05/26/2024 Magne sium [Mass /volu me] in Serum or Plasm a interpretati on and review of laboratory results Normal Not Available Not Available 07/03 14:29:07 05/27/20 24 05/27/2024 Gluco se [Mass /volu me] in Arter ial blood glucose [mass/volume ] in capillary blood by glucometer 160 mg/dL low: 70mg/d Lhigh: 99mg/d L high Gluco se WB/PO C 160 (H) 70 - 99 mg/dL 05/27 9:22 PM 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 [employer] ATORY [facility] AIDA Not Available Not Available 07/27/2024 14:29:08 05/27/20 24 05/27/2024 Gluco se [Mass /volu me] in Arter ial blood specimen source identified Cap Finger stick Speci men Type Cap Finge rstic k 05/27 9:22 PM 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 [employer] ATORY [facility]IDA Not Available Not Available 07/27/2024 14:29:08 05/27/20 24 05/27/2024 Gluco se [Mass /volu me] in Arter ial blood interpretati on and review of laboratory results Abnorm al Not Available Not Available 14:29:08 05/27/20 24 05/27/2024 Gluco se [Mass /volu me] in Arter ial blood glucose [mass/volume ] in capillary blood by glucometer 167 mg/dL low: 70mg/d Lhigh: 99mg/d L high Gluco se WB/PO C 167 (H) 70 - 99 mg/dL 05/27 8:10 PM 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 [employer] ATORY [facility]IDA Not Available Not Available 07/27/2024 14:29:08 05/27/20 24 05/27/2024 Gluco se [Mass /volu me] in Arter ial blood specimen source identified Arteri al Speci men Type Arter ial 05/27 8:10 PM 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 [employer] ATORY [facility]IDA Not Available Not Available 07/27/2024 14:29:08 05/27/20 24 05/27/2024 Gluco se [Mass /volu me] in Arter ial blood interpretati on and review of laboratory results Abnorm al Not Available Not Available 14:29:08 05/27/20 24 05/27/2024 CBC panel - Blood by Autom ated count leukocytes [#/volume] in blood by automated count 6.2 text: 4.0 - 10.7 x10e9/ L WBC 6.2 4.0 - 10.7 x10E9 /L 05/27 3:56 PM 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 [employer] ATORY [facility]IDA Not Available Not Available 07/27/2024 14:29:08 05/27/20 24 05/27/2024 CBC panel - Blood by Autom ated count erythrocytes [#/volume] in blood by automated count 4 text: 3.90 - 5.20 x10e12 /L RBC Count 4.00 3.90 - 5.20 x10E1 2/L 05/27 3:56 PM 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 [employer] ATORY [facility] AIDA Not Available Not Available 07/27/2024 14:29:08 05/27/20 24 05/27/2024 CBC panel - Blood by Autom ated count hemoglobin [mass/volume ] in blood 13.1 g/dL low: 11.9g/ dLhigh : 15.8g/ dL Hemog lobin 13.1 11.9 - 15.8 g/dL 12/27 /2024 3:56 PM [facility] Not Available Not Available 07/27/2024 14:29:08 05/27/2005/27/2024 CBC panel - Blood by Autom ated count hematocrit [volume fraction] of blood by automated count 38.6 % low: 34.8%h igh: 46.1% Hemat ocrit 38.6 34.8 - 46.1 % 05/27 3:56 PM [facility] Not Available Not Available 07/27/2024 14:29:08 05/27/2005/27/2024 CBC panel - Blood by Autom ated count MCV [entitic volume] by automated count 96.5 fL low: 80fLhi gh: 98fL MCV 96.5 80.0 - 98.0 fL 05/27 3:56 PM [facility] Not Available Not Available 07/27/2024 14:29:08 05/27/2005/27/2024 CBC panel - Blood by Autom ated count MCH [entitic mass] by automated count 32.8 pg low: 26.7pg high: 33.6pg MCH 32.8 26.7 - 33.6 pg 05/27 3:56 PM [facility] Not Available Not Available 07/27/2024 14:29:08 05/27/2005/27/2024 CBC panel - Blood by Autom ated count MCHC [mass/volume ] by automated count 33.9 g/dL low: 31.7g/ dLhigh : 36.3g/ dL MCHC 33.9 31.7 - 36.3 g/dL 05/27 3:56 PM [facility] Not Available Not Available 07/27/2024 14:29:08 05/27/2005/27/2024 CBC panel - Blood by Autom ated count erythrocyte distribution width [ratio] by automated count 12 % low: 11.3%h igh: 14.8% RDW-C V 12.0 11.3 - 14.8 % 05/27 3:56 PM [facility] Not Available Not Available 07/27/2024 14:29:08 05/27/20 24 05/27/2024 CBC panel - Blood by Autom ated count platelets [#/volume] in blood by automated count 231 text: 150 - 420 x10e9/ L Plate let Count 231 150 - 420 x10E9 /L 05/27 3:56 PM 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 [employer] ATORY HOSPI AIDA Not Available Not Available 07/27/2024 14:29:08 05/27/20 24 05/27/2024 CBC panel - Blood by Autom ated count platelet mean volume [entitic volume] in blood by automated count 8.6 fL low: 7.8fLh igh: 11.4fL MPV 8.6 7.8 - 11.4 fL 05/27 3:56 PM 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 [employer] ATORY [facility]OS[facility] AIDA Not Available Not Available 07/27/2024 14:29:08 05/27/20 24 05/27/2024 CBC panel - Blood by Autom ated count interpretati on and review of laboratory results Normal Not Available Not Available 07/03 14:29:08 05/27/20 24 05/27/2024 Renal funct ion 1999 panel - Serum or Plasm a urea nitrogen [mass/volume ] in serum or plasma 13 mg/dL low: 7mg/dL high: 26mg/d L BUN 13 7 - 26 mg/dL 05/27 4:25 PM 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 [employer] ATORY [facility]OS[facility] AIDA Not Available Not Available 07/27/2024 14:29:07 05/27/20 24 05/27/2024 Renal funct ion 1999 panel - Serum or Plasm a creatinine [mass/volume ] in serum or plasma 0.65 mg/dL low: 0.56mg /dLhig h: 0.96mg /dL Creat inine 0.65 0.56 - 0.96 mg/dL 05/27 4:25 PM 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 [employer] ATORY [facility]OS[facility] AIDA Not Available Not Available 07/27/2024 14:29:07 05/27/20 24 05/27/2024 Renal funct ion 1999 panel - Serum or Plasm a sodium [moles/volum e] in serum or plasma 139 mmol/ L low: 136mmo l/Lhig h: 145mmo l/L Sodiu m 139 136 - 145 mmol/ L 05/27 4:25 PM 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IDA Not Available Not Available 07/27/2024 14:29:07 05/27/20 24 05/27/2024 Renal funct ion 1999 panel - Serum or Plasm a potassium [moles/volum e] in serum or plasma 4.2 mmol/ L low: 3.5mmo l/Lhig h: 4.5mmo l/L Potas sium 4.2 3.5 - 4.5 mmol/ L 05/27 4:25 PM 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IDA Not Available Not Available 07/27/2024 14:29:07 05/27/20 24 05/27/2024 Renal funct ion 1999 panel - Serum or Plasm a chloride [moles/volum e] in serum or plasma 102 mmol/ L low: 98mmol /Lhigh : 107mmo l/L Chlor [place] 102 98 - 107 mmol/ L 05/27 4:25 PM MACHINE ADJUSTER LEADER [employer] ATORY [facility] AIDA Not Available Not Available 07/27/2024 14:29:07 05/27/20 24 05/27/2024 Renal funct ion 1999 panel - Serum or Plasm a carbon dioxide, total [moles/volum e] in serum or plasma 28 mmol/ L low: 22mmol /Lhigh : 29mmol /L CO2 28 22 - 29 mmol/ L 05/27 4:25 PM MACHINE ADJUSTER LEADER [facility] Not Available Not Available 07/27/2024 14:29:07 05/27/20 24 05/27/2024 Renal funct ion 1999 panel - Serum or Plasm a glucose [mass/volume ] in serum or plasma 181 mg/dL low: 70mg/d Lhigh: 99mg/d L high Gluco se 181 (H) 70 - 99 mg/dL 05/27 4:25 PM MACHINE ADJUSTER LEADER [facility] Not Available Not Available 07/27/2024 14:29:07 05/27/20 24 05/27/2024 Renal funct ion 1999 panel - Serum or Plasm a albumin [mass/volume ] in serum or plasma by bromocresol green (bcg) dye binding method 4.2 g/dL low: 3.4g/d Lhigh: 5g/dL Album in 4.2 3.4 - 5.0 g/dL 05/27 4:25 PM 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 Not Available Not Available 07/27/2024 14:29:07 05/27/20 24 05/27/2024 Renal funct ion 1999 panel - Serum or Plasm a calcium [moles/volum e] in serum or plasma 9.4 mg/dL low: 8.4mg/ dLhigh : 10.2mg /dL Calci um 9.4 8.4 - 10.2 mg/dL 05/27 4:25 PM 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 Not Available Not Available 07/27/2024 14:29:07 05/27/20 24 05/27/2024 Renal funct ion 1999 panel - Serum or Plasm a phosphate [mass/volume ] in serum or plasma 3.5 mg/dL low: 2.9mg/ dLhigh : 5.1mg/ dL Phosp horus 3.5 2.9 - 5.1 mg/dL 05/27 4:25 PM 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 Not Available Not Available 07/27/2024 14:29:07 05/27/20 24 05/27/2024 Renal funct ion 1999 panel - Serum or Plasm a anion gap 9 low: 6high: 16 Anion Gap 9 6 - 16 05/27 4:25 PM MACHINE ADJUSTER LEADER [facility] Not Available Not Available 07/27/2024 14:29:07 05/27/20 24 05/27/2024 Renal funct ion 1999 panel - Serum or Plasm a urea nitrogen/cre atinine [mass ratio] in serum or plasma 20 low: 7high: 23 BUN/C reati nine Ratio 20 7 - 23 05/27 4:25 PM MACHINE ADJUSTER LEADER [employer] [facility] Not Available Not Available 07/27/2024 14:29:07 05/27/20 24 05/27/2024 Renal funct ion 1999 panel - Serum or Plasm a osmolality calculated 293 text: 275 - 295 mOsm/k g Osmol ality Calcu lated 293 275 - 295 mOsm/ kg 05/27 4:25 PM MACHINE ADJUSTER LEADER [employer] [facility] Not Available Not Available 07/27/2024 14:29:07 05/27/20 24 05/27/2024 Renal funct ion 2000 panel - Serum or Plasm a glomerular filtration rate/1.73 sq M.predicted [volume rate/area] in serum, plasma or blood by creatinine-b ased formula (CKD-epi 2020) text: >=90 mL/min /1.73 m2 eGFR by CKD-E PI >90 >=90 mL/mi n/1.7 3 m2 05/27 4:25 PM [facility] Not Available Not Available 07/27/2024 14:29:07 05/27/2005/27/2024 Renal funct ion 2000 panel - Serum or Plasm a interpretati on and review of laboratory results Abnorm al Not Available Not Available 14:29:07 05/27/20 24 05/27/2024 Magne sium [Mass /volu me] in Serum or Plasm a magnesium [mass/volume ] in serum or plasma 1.6 mg/dL low: 1.6mg/ dLhigh : 2.6mg/ dL Magne sium 1.6 1.6 - 2.6 mg/dL 05/27 4:25 PM [facility] Not Available Not Available 07/27/2024 14:29:07 05/27/20 24 05/27/2024 Magne sium [Mass /volu me] in Serum or Plasm a interpretati on and review of laboratory results Normal Not Available Not Available 07/03 14:29:07 05/27/20 24 05/27/2024 Gluco se [Mass /volu me] in Arter ial blood glucose [mass/volume ] in capillary blood by glucometer 204 mg/dL low: 70mg/d Lhigh: 99mg/d L high Gluco se WB/PO C 204 (H) 70 - 99 mg/dL 05/27 11:56 AM [facility] Not Available Not Available 07/27/2024 14:29:07 05/27/20 24 05/27/2024 Gluco se [Mass /volu me] in Arter ial blood specimen source identified Cap Finger stick Speci men Type Cap Finge rstic k 05/27 11:56 AM MACHINE ADJUSTER LEADER [facility] Not Available Not Available 07/27/2024 14:29:07 05/27/20 24 05/27/2024 Gluco se [Mass /volu me] in Arter ial blood interpretati on and review of laboratory results Abnorm al Not Available Not Available 14:29:07 05/27/20 24 05/27/2024 Gluco se [Mass /volu me] in Arter ial blood glucose [mass/volume ] in capillary blood by glucometer 154 mg/dL low: 70mg/d Lhigh: 99mg/d L high Gluco se WB/PO C 154 (H) 70 - 99 mg/dL 05/27 12:52 PM MACHINE ADJUSTER LEADER [facility] Not Available Not Available 07/27/2024 14:29:07 05/27/20 24 05/27/2024 Gluco se [Mass /volu me] in Arter ial blood specimen source identified Cap Finger stick Speci men Type Cap Finge rstic k 05/27 12:52 PM MACHINE ADJUSTER LEADER [facility] Not Available Not Available 07/27/2024 14:29:07 05/27/20 24 05/27/2024 Gluco se [Mass /volu me] in Arter ial blood interpretati on and review of laboratory results Abnorm al Not Available Not Available 14:29:07 05/28/20 24 05/28/2024 Gluco se [Mass /volu me] in Arter ial blood glucose [mass/volume ] in capillary blood by glucometer 152 mg/dL low: 70mg/d Lhigh: 99mg/d L high Gluco se WB/PO C 152 (H) 70 - 99 mg/dL 05/28 10:46 PM MACHINE ADJUSTER LEADER [facility] Not Available Not Available 07/27/2024 14:29:08 05/28/20 24 05/28/2024 Gluco se [Mass /volu me] in Arter ial blood specimen source identified Cap Finger stick Speci men Type Cap Finge rstic k 05/28 10:46 PM MACHINE ADJUSTER LEADER [facility] Not Available Not Available 07/27/2024 14:29:08 05/28/20 24 05/28/2024 Gluco se [Mass /volu me] in Arter ial blood interpretati on and review of laboratory results Abnorm al Not Available Not Available 14:29:08 05/28/20 24 05/28/2024 Gluco se [Mass /volu me] in Arter ial blood glucose [mass/volume ] in capillary blood by glucometer 219 mg/dL low: 70mg/d Lhigh: 99mg/d L high Gluco se WB/PO C 219 (H) 70 - 99 mg/dL 05/28 4:58 PM MACHINE ADJUSTER LEADER [employer] [facility] Not Available Not Available 07/27/2024 14:29:08 05/28/20 24 05/28/2024 Gluco se [Mass /volu me] in Arter ial blood specimen source identified Arteri al Speci men Type Arter ial 05/28 4:58 PM MACHINE ADJUSTER LEADER [employer] [facility] Not Available Not Available 07/27/2024 14:29:08 05/28/20 24 05/28/2024 Gluco se [Mass /volu me] in Arter ial blood interpretati on and review of laboratory results Abnorm al Not Available Not Available 14:29:08 05/28/20 24 05/28/2024 Renal funct ion 2000 panel - Serum or Plasm a urea nitrogen [mass/volume ] in serum or plasma 12 mg/dL low: 7mg/dL high: 26mg/d L BUN 12 7 - 26 mg/dL 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[facility] Not Available Not Available 07/27/2024 14:29:08 05/28/20 24 05/28/2024 Renal funct ion 2000 panel - Serum or Plasm a creatinine [mass/volume ] in serum or plasma 0.49 mg/dL low: 0.56mg /dLhig h: 0.96mg /dL low Creat inine 0.49 (L) 0.56 - 0.96 mg/dL 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[employer] [facility] Not Available Not Available 07/27/2024 14:29:08 05/28/20 24 05/28/2024 Renal funct ion 1999 panel - Serum or Plasm a sodium [moles/volum e] in serum or plasma 136 mmol/ L low: 136mmo l/Lhig h: 145mmo l/L Sodiu m 136 136 - 145 mmol/ L 05/28 4:01 PM [facility] Not Available Not Available 07/27/2024 14:29:08 05/28/20 24 05/28/2024 Renal funct ion 1999 panel - Serum or Plasm a potassium [moles/volum e] in serum or plasma 4 mmol/ L low: 3.5mmo l/Lhig h: 4.5mmo l/L Potas sium 4.0 3.5 - 4.5 mmol/ L 05/28 4:01 PM [facility] Not Available Not Available 07/27/2024 14:29:08 05/28/20 24 05/28/2024 Renal funct ion 1999 panel - Serum or Plasm a chloride [moles/volum e] in serum or plasma 103 mmol/ L low: 98mmol /Lhigh : 107mmo l/L Chlor [place] 103 98 - 107 mmol/ L 05/28 4:01 PM [facility] Not Available Not Available 07/27/2024 14:29:08 05/28/20 24 05/28/2024 Renal funct ion 1999 panel - Serum or Plasm a carbon dioxide, total [moles/volum e] in serum or plasma 24 mmol/ L low: 22mmol /Lhigh : 29mmol /L CO2 24 22 - 29 mmol/ L 05/28 4:01 PM [facility] Not Available Not Available 07/27/2024 14:29:08 05/28/20 24 05/28/2024 Renal funct ion 1999 panel - Serum or Plasm a glucose [mass/volume ] in serum or plasma 232 mg/dL low: 70mg/d Lhigh: 99mg/d L high Gluco se 232 (H) 70 - 99 mg/dL 05/28 4:01 PM [facility] Not Available Not Available 07/27/2024 14:29:08 05/28/20 24 05/28/2024 Renal funct ion 1999 panel - Serum or Plasm a albumin [mass/volume ] in serum or plasma by bromocresol green (bcg) dye binding method 3.9 g/dL low: 3.4g/d Lhigh: 5g/dL Album in 3.9 3.4 - 5.0 g/dL 05/28 4:01 PM [facility] Not Available Not Available 07/27/2024 14:29:08 05/28/20 24 05/28/2024 Renal funct ion 1999 panel - Serum or Plasm a calcium [moles/volum e] in serum or plasma 9.3 mg/dL low: 8.4mg/ dLhigh : 10.2mg /dL Calci um 9.3 8.4 - 10.2 mg/dL 05/28 4:01 PM [facility] Not Available Not Available 07/27/2024 14:29:08 05/28/20 24 05/28/2024 Renal funct ion 1999 panel - Serum or Plasm a phosphate [mass/volume ] in serum or plasma 3.7 mg/dL low: 2.9mg/ dLhigh : 5.1mg/ dL Phosp horus 3.7 2.9 - 5.1 mg/dL 05/28 4:01 PM [facility] Not Available Not Available 07/27/2024 14:29:08 05/28/20 24 05/28/2024 Renal funct ion 1999 panel - Serum or Plasm a anion gap 9 low: 6high: 16 Anion Gap 9 6 - 16 05/28 4:01 PM [facility] Not Available Not Available 07/27/2024 14:29:08 05/28/20 24 05/28/2024 Renal funct ion 1999 panel - Serum or Plasm a urea nitrogen/cre atinine [mass ratio] in serum or plasma 24 low: 7high: 23 high BUN/C reati nine Ratio 24 (H) 7 - 23 05/28 4:01 PM [facility] Not Available Not Available 07/27/2024 14:29:08 05/28/20 24 05/28/2024 Renal funct ion 2000 panel - Serum or Plasm a osmolality calculated 289 text: 275 - 295 mOsm/k g Osmol lubna [place] lated 289 275 - 295 mOsm/ kg 05/28 4:01 PM [employer] [facility] Not Available Not Available 07/27/2024 14:29:08 05/28/20 24 05/28/2024 Renal funct ion 2000 panel - Serum or Plasm a glomerular filtration rate/1.73 sq M.predicted [volume rate/area] in serum, plasma or blood by creatinine-b ased formula (CKD-epi 2020) text: >=90 mL/min /1.73 m2 eGFR by CKD-E PI >90 >=90 mL/mi n/1.7 3 m2 05/28 4:01 PM [employer] [facility] Not Available Not Available 07/27/2024 14:29:08 05/28/20 24 05/28/2024 Renal funct ion 2000 panel - Serum or Plasm a interpretati on and review of laboratory results Abnorm al Not Available Not Available 14:29:08 05/28/20 24 05/28/2024 Magne sium [Mass /volu me] in Serum or Plasm a magnesium [mass/volume ] in serum or plasma 1.6 mg/dL low: 1.6mg/ dLhigh : 2.6mg/ dL Magne sium 1.6 1.6 - 2.6 mg/dL 05/28 4:01 PM [employer] [facility] Not Available Not Available 07/27/2024 14:29:08 05/28/20 24 05/28/2024 Magne sium [Mass /volu me] in Serum or Plasm a interpretati on and review of laboratory results Normal Not Available Not Available 07/03 14:29:08 05/28/20 24 05/28/2024 CBC panel - Blood by Autom ated count leukocytes [#/volume] in blood by automated count 6.8 text: 4.0 - 10.7 x10e9/ L WBC 6.8 4.0 - 10.7 x10E9 /L 12/28 /2024 3:38 PM [facility] Not Available Not Available 07/27/2024 14:29:08 05/28/2005/28/2024 CBC panel - Blood by Autom ated count erythrocytes [#/volume] in blood by automated count 3.88 text: 3.90 - 5.20 x10e12 /L low RBC Count 3.88 (L) 3.90 - 5.20 x10E1 2/L 05/28 3:38 PM [facility] Not Available Not Available 07/27/2024 14:29:08 05/28/20 24 05/28/2024 CBC panel - Blood by Autom ated count hemoglobin [mass/volume ] in blood 12.6 g/dL low: 11.9g/ dLhigh : 15.8g/ dL Hemog lobin 12.6 11.9 - 15.8 g/dL 05/28 3:38 PM [facility] Not Available Not Available 07/27/2024 14:29:08 05/28/20 24 05/28/2024 CBC panel - Blood by Autom ated count hematocrit [volume fraction] of blood by automated count 37.8 % low: 34.8%h igh: 46.1% Hemat ocrit 37.8 34.8 - 46.1 % 05/28 3:38 PM [facility] Not Available Not Available 07/27/2024 14:29:08 05/28/20 24 05/28/2024 CBC panel - Blood by Autom ated count MCV [entitic volume] by automated count 97.4 fL low: 80fLhi gh: 98fL MCV 97.4 80.0 - 98.0 fL 05/28 3:38 PM [facility] Not Available Not Available 07/27/2024 14:29:08 05/28/20 24 05/28/2024 CBC panel - Blood by Autom ated count MCH [entitic mass] by automated count 32.5 pg low: 26.7pg high: 33.6pg MCH 32.5 26.7 - 33.6 pg 05/28 3:38 PM [facility] Not Available Not Available 07/27/2024 14:29:08 05/28/20 24 05/28/2024 CBC panel - Blood by Autom ated count MCHC [mass/volume ] by automated count 33.3 g/dL low: 31.7g/ dLhigh : 36.3g/ dL MCHC 33.3 31.7 - 36.3 g/dL 05/28 3:38 PM [facility] Not Available 07/27/2024 14:29:08 05/28/20 24 05/28/2024 CBC panel - Blood by Autom ated count erythrocyte distribution width [ratio] by automated count 12.2 % low: 11.3%h igh: 14.8% RDW-C V 12.2 11.3 - 14.8 % 05/28 3:38 PM [facility] Not Available Not Available 07/27/2024 14:29:08 05/28/20 24 05/28/2024 CBC panel - Blood by Autom ated count platelets [#/volume] in blood by automated count 229 text: 150 - 420 x10e9/ L Plate let Count 229 150 - 420 x10E9 /L 05/28 3:38 PM [facility] Not Available Not Available 07/27/2024 14:29:08 05/28/20 24 05/28/2024 CBC panel - Blood by Autom ated count platelet mean volume [entitic volume] in blood by automated count 9 fL low: 7.8fLh igh: 11.4fL MPV 9.0 7.8 - 11.4 fL 05/28 3:38 PM [facility] Not Available Not Available 07/27/2024 14:29:08 05/28/20 24 05/28/2024 CBC panel - Blood by Autom ated count interpretati on and review of laboratory results Abnorm al Not Available Not Available 14:29:08 05/28/20 24 05/28/2024 Gluco se [Mass /volu me] in Arter ial blood glucose [mass/volume ] in capillary blood by glucometer 215 mg/dL low: 70mg/d Lhigh: 99mg/d L high Gluco se WB/PO C 215 (H) 70 - 99 mg/dL 05/28 12:01 PM MACHINE ADJUSTER LEADER [employer] [facility] Not Available Not Available 07/27/2024 14:29:08 05/28/20 24 05/28/2024 Gluco se [Mass /volu me] in Arter ial blood specimen source identified Arteri al Speci men Type Arter ial 05/28 12:01 PM MACHINE ADJUSTER LEADER [employer] [facility] Not Available Not Available 07/27/2024 14:29:08 05/28/20 24 05/28/2024 Gluco se [Mass /volu me] in Arter ial blood interpretati on and review of laboratory results Abnorm al Not Available Not Available 14:29:08 05/28/20 24 05/28/2024 Gluco se [Mass /volu me] in Arter ial blood glucose [mass/volume ] in capillary blood by glucometer 150 mg/dL low: 70mg/d Lhigh: 99mg/d L high Gluco se WB/PO C 150 (H) 70 - 99 mg/dL 05/28 8:29 AM MACHINE ADJUSTER LEADER [employer] AT[facility] Not Available Not Available 07/27/2024 14:29:08 05/28/20 24 05/28/2024 Gluco se [Mass /volu me] in Arter ial blood specimen source identified Cap Finger stick Speci men Type Cap Finge rstic k 05/28 8:29 AM MACHINE ADJUSTER LEADER [employer] [facility] Not Available Not Available 07/27/2024 14:29:08 05/28/20 24 05/28/2024 Gluco se [Mass /volu me] in Arter ial blood interpretati on and review of laboratory results Abnorm al Not Available Not Available 14:29:08 05/29/20 24 05/30/2024 Gluco se [Mass /volu me] in Arter ial blood glucose [mass/volume ] in capillary blood by glucometer 113 mg/dL low: 70mg/d Lhigh: 99mg/d L high Gluco se WB/PO C 113 (H) 70 - 99 mg/dL 05/30 8:17 AM MACHINE ADJUSTER LEADER [facility] Not Available Not Available 07/27/2024 14:29:09 05/29/20 24 05/30/2024 Gluco se [Mass /volu me] in Arter ial blood specimen source identified Cap Finger stick Speci men Type Cap Johne rstic k 05/30 8:17 AM MACHINE ADJUSTER LEADER [facility] Not Available Not Available 07/27/2024 14:29:09 05/29/20 24 05/30/2024 Gluco se [Mass /volu me] in Arter ial blood interpretati on and review of laboratory results Abnorm al Not Available Not Available 14::09 05/29/20 24 05/29/2024 Gluco se [Mass /volu me] in Arter ial blood glucose [mass/volume ] in capillary blood by glucometer 133 mg/dL low: 70mg/d Lhigh: 99mg/d L high Gluco se WB/PO C 133 (H) 70 - 99 mg/dL 05/29 2:21 PM MACHINE ADJUSTER LEADER [facility] Not Available Not Available 07/27/2024 14:29:09 05/29/20 24 05/29/2024 Gluco se [Mass /volu me] in Arter ial blood specimen source identified Cap Finger stick Speci men Type Cap Johne rstic k 05/29 2:21 PM MACHINE ADJUSTER LEADER [facility] Not Available Not Available 07/27/2024 14:29:09 05/29/20 24 05/29/2024 Gluco se [Mass /volu me] in Arter ial blood interpretati on and review of laboratory results Abnorm al Not Available Not Available 14:29:09 05/29/20 24 05/29/2024 CBC panel - Blood by Autom ated count leukocytes [#/volume] in blood by automated count 6.6 text: 4.0 - 10.7 x10e9/ L WBC 6.6 4.0 - 10.7 x10E9 /L 05/29 9:14 AM MACHINE ADJUSTER LEADER [facility] Not Available Not Available 07/27/2024 14:29:05/29/20 24 05/29/2024 CBC panel - Blood by Autom ated count erythrocytes [#/volume] in blood by automated count 4.02 text: 3.90 - 5.20 x10e12 /L RBC Count 4.02 3.90 - 5.20 x10E1 2/L 05/29 9:14 AM [facility] AT[facility] Not Available Not Available 07/27/2024 14:29:05/29/20 24 05/29/2024 CBC panel - Blood by Autom ated count hemoglobin [mass/volume ] in blood 13.1 g/dL low: 11.9g/ dLhigh : 15.8g/ dL Hemog lobin 13.1 11.9 - 15.8 g/dL 05/29 9:14 AM [facility] Not Available Not Available 07/27/2024 14::05/29/20 24 05/29/2024 CBC panel - Blood by Autom ated count hematocrit [volume fraction] of blood by automated count 38.7 % low: 34.8%h igh: 46.1% Hemat ocrit 38.7 34.8 - 46.1 % 05/29 9:14 AM [facility] Not Available Not Available 07/27/2024 14:29:05/29/20 24 05/29/2024 CBC panel - Blood by Autom ated count MCV [entitic volume] by automated count 96.3 fL low: 80fLhi gh: 98fL MCV 96.3 80.0 - 98.0 fL 05/29 9:14 AM [facility] Not Available Not Available 07/27/2024 14:29:05/29/20 24 05/29/2024 CBC panel - Blood by Autom ated count MCH [entitic mass] by automated count 32.6 pg low: 26.7pg high: 33.6pg MCH 32.6 26.7 - 33.6 pg 05/29 9:14 AM [facility] AT[facility] AIDA Not Available Not Available 07/27/2024 14:29:05/29/20 24 05/29/2024 CBC panel - Blood by Autom ated count MCHC [mass/volume ] by automated count 33.9 g/dL low: 31.7g/ dLhigh : 36.3g/ dL MCHC 33.9 31.7 - 36.3 g/dL 05/29 9:14 AM [facility] Not Available Not Available 07/27/2024 14:29:09 05/29/20 24 05/29/2024 CBC panel - Blood by Autom ated count erythrocyte distribution width [ratio] by automated count 12 % low: 11.3%h igh: 14.8% RDW-C V 12.0 11.3 - 14.8 % 05/29 9:14 AM [facility] AT[facility] AIDA Not Available Not Available 07/27/2024 14:29:05/29/20 24 05/29/2024 CBC panel - Blood by Autom ated count platelets [#/volume] in blood by automated count 233 text: 150 - 420 x10e9/ L Plate let Count 233 150 - 420 x10E9 /L 05/29 9:14 AM [facility] Not Available Not Available 07/27/2024 14:29:09 05/29/20 24 05/29/2024 CBC panel - Blood by Autom ated count platelet mean volume [entitic volume] in blood by automated count 8.7 fL low: 7.8fLh igh: 11.4fL MPV 8.7 7.8 - 11.4 fL 05/29 9:14 AM [facility] Not Available Not Available 07/27/2024 14:29:05/29/20 24 05/29/2024 CBC panel - Blood by Autom ated count interpretati on and review of laboratory results Normal Not Available Not Available 07/03 14:29:05/29/20 24 05/29/2024 Renal funct ion 2000 panel - Serum or Plasm a urea nitrogen [mass/volume ] in serum or plasma 13 mg/dL low: 7mg/dL high: 26mg/d L BUN 13 7 - 26 mg/dL 05/29 9:33 AM [facility] AT[facility] AIDA Not Available Not Available 07/27/2024 14:29:09 05/29/20 24 05/29/2024 Renal funct ion 1999 panel - Serum or Plasm a creatinine [mass/volume ] in serum or plasma 0.49 mg/dL low: 0.56mg /dLhig h: 0.96mg /dL low Creat inine 0.49 (L) 0.56 - 0.96 mg/dL 05/29 9:33 AM 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IDA Not Available Not Available 07/27/2024 14:29:09 05/29/20 24 05/29/2024 Renal funct ion 1999 panel - Serum or Plasm a sodium [moles/volum e] in serum or plasma 136 mmol/ L low: 136mmo l/Lhig h: 145mmo l/L Sodiu m 136 136 - 145 mmol/ L 05/29 9:33 AM MACHINE ADJUSTER LEADER [employer] ATORY [facility] AIDA Not Available Not Available 07/27/2024 14:29:09 05/29/20 24 05/29/2024 Renal funct ion 1999 panel - Serum or Plasm a potassium [moles/volum e] in serum or plasma 4.3 mmol/ L low: 3.5mmo l/Lhig h: 4.5mmo l/L Potas sium 4.3 3.5 - 4.5 mmol/ L 05/29 9:33 AM MACHINE ADJUSTER LEADER [employer] AT[facility] AIDA Not Available Not Available 07/27/2024 14:29:09 05/29/20 24 05/29/2024 Renal funct ion 1999 panel - Serum or Plasm a chloride [moles/volum e] in serum or plasma 102 mmol/ L low: 98mmol /Lhigh : 107mmo l/L Chlor [place] 102 98 - 107 mmol/ L 05/29 9:33 AM MACHINE ADJUSTER LEADER [employer] AT[facility] AIDA Not Available Not Available 07/27/2024 14:29:09 05/29/20 24 05/29/2024 Renal funct ion 1999 panel - Serum or Plasm a carbon dioxide, total [moles/volum e] in serum or plasma 24 mmol/ L low: 22mmol /Lhigh : 29mmol /L CO2 24 22 - 29 mmol/ L 05/29 9:33 AM MACHINE ADJUSTER LEADER [employer] [facility] Not Available Not Available 07/27/2024 14:29:09 05/29/20 24 05/29/2024 Renal funct ion 1999 panel - Serum or Plasm a glucose [mass/volume ] in serum or plasma 147 mg/dL low: 70mg/d Lhigh: 99mg/d L high Gluco se 147 (H) 70 - 99 mg/dL 05/29 9:33 AM [facility] [employer] AT[facility] A[facility] Not Available Not Available 07/27/2024 14:29:09 05/29/20 24 05/29/2024 Renal funct ion 1999 panel - Serum or Plasm a albumin [mass/volume ] in serum or plasma by bromocresol green (bcg) dye binding method 4.2 g/dL low: 3.4g/d Lhigh: 5g/dL Album in 4.2 3.4 - 5.0 g/dL 05/29 9:33 AM [facility] [employer] [facility] AIDA Not Available Not Available 07/27/2024 14:29:09 05/29/20 24 05/29/2024 Renal funct ion 1999 panel - Serum or Plasm a calcium [moles/volum e] in serum or plasma 9.8 mg/dL low: 8.4mg/ dLhigh : 10.2mg /dL Calci um 9.8 8.4 - 10.2 mg/dL 05/29 9:33 AM [facility] [employer] AT[facility] AIDA Not Available Not Available 07/27/2024 14:29:09 05/29/20 24 05/29/2024 Renal funct ion 1999 panel - Serum or Plasm a phosphate [mass/volume ] in serum or plasma 4.1 mg/dL low: 2.9mg/ dLhigh : 5.1mg/ dL Phosp horus 4.1 2.9 - 5.1 mg/dL 05/29 9:33 AM MACHINE ADJUSTER LEAD[employer] AT[facility] AIDA Not Available Not Available 07/27/2024 14:29:09 05/29/20 24 05/29/2024 Renal funct ion 2000 panel - Serum or Plasm a anion gap 10 low: 6high: 16 Anion Gap 10 6 - 16 05/29 9:33 AM MACHINE ADJUSTER LEADER [facility] Not Available Not Available 07/27/2024 14:29:09 05/29/20 24 05/29/2024 Renal funct ion 2000 panel - Serum or Plasm a urea nitrogen/cre atinine [mass ratio] in serum or plasma 27 low: 7high: 23 high BUN/C reati nine Ratio 27 (H) 7 - 23 05/29 9:33 AM MACHINE AD[employer]ER LE[employer] [facility] Not Available Not Available 07/27/2024 14:29:09 05/29/20 24 05/29/2024 Renal funct ion 2000 panel - Serum or Plasm a osmolality calculated 285 text: 275 - 295 mOsm/k g Osmol ality Calcu lated 285 275 - 295 mOsm/ kg 05/29 9:33 AM [facility] Not Available Not Available 07/27/2024 14:29:09 05/29/20 24 05/29/2024 Renal funct ion 1999 panel - Serum or Plasm a glomerular filtration rate/1.73 sq M.predicted [volume rate/area] in serum, plasma or blood by creatinine-b ased formula (CKD-epi 2020) text: >=90 mL/min /1.73 m2 eGFR by CKD-E PI >90 >=90 mL/mi n/1.7 3 m2 05/29 9:33 AM [facility] Not Available Not Available 07/27/2024 14:29:09 05/29/20 24 05/29/2024 Renal funct ion 2000 panel - Serum or Plasm a interpretati on and review of laboratory results Abnorm al Not Available Not Available 14:29:09 05/29/20 24 05/29/2024 Magne sium [Mass /volu me] in Serum or Plasm a magnesium [mass/volume ] in serum or plasma 1.6 mg/dL low: 1.6mg/ dLhigh : 2.6mg/ dL Magne sium 1.6 1.6 - 2.6 mg/dL 05/29 9:33 AM [facility] Not Available Not Available 07/27/2024 14:29:08 05/29/20 24 05/29/2024 Magne sium [Mass /volu me] in Serum or Plasm a interpretati on and review of laboratory results Normal Not Available Not Available 07/03 14:29:08 05/29/20 24 05/29/2024 Gluco se [Mass /volu me] in Arter ial blood glucose [mass/volume ] in capillary blood by glucometer 140 mg/dL low: 70mg/d Lhigh: 99mg/d L high Gluco se WB/PO C 140 (H) 70 - 99 mg/dL 05/29 12:07 PM 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 Not Available Not Available 07/27/2024 14:29:08 05/29/20 24 05/29/2024 Gluco se [Mass /volu me] in Arter ial blood specimen source identified Cap Finger stick Speci men Type [place] rstic k 05/29 12:07 PM 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 Not Available Not Available 07/27/2024 14:29:08 05/29/20 24 05/29/2024 Gluco se [Mass /volu me] in Arter ial blood interpretati on and review of laboratory results Abnorm al Not Available Not Available 14:29:08 05/30/20 24 05/30/2024 Gluco se [Mass /volu me] in Arter ial blood glucose [mass/volume ] in capillary blood by glucometer 224 mg/dL low: 70mg/d Lhigh: 99mg/d L high Gluco se WB/PO C 224 (H) 70 - 99 mg/dL 05/30 8:24 PM 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 Not Available Not Available 07/27/2024 14:29:09 05/30/20 24 05/30/2024 Gluco se [Mass /volu me] in Arter ial blood specimen source identified Cap Finger stick Speci men Type Cap Finge rstic k 05/30 8:24 PM 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 Not Available Not Available 07/27/2024 14:29:09 05/30/20 24 05/30/2024 Gluco se [Mass /volu me] in Arter ial blood interpretati on and review of laboratory results Abnorm al Not Available Not Available 14:29:09 05/30/20 24 05/30/2024 Gluco se [Mass /volu me] in Arter ial blood glucose [mass/volume ] in capillary blood by glucometer 129 mg/dL low: 70mg/d Lhigh: 99mg/d L high Gluco se WB/PO C 129 (H) 70 - 99 mg/dL 05/30 5:50 PM 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 Not Available Not Available 07/27/2024 14:29:09 05/30/20 24 05/30/2024 Gluco se [Mass /volu me] in Arter ial blood specimen source identified Cap Finger stick Speci men Type Cap Finge rstic k 05/30 5:50 PM 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 Not Available Not Available 07/27/2024 14:29:09 05/30/20 24 05/30/2024 Gluco se [Mass /volu me] in Arter ial blood interpretati on and review of laboratory results Abnorm al Not Available Not Available 14:29:09 05/30/20 24 05/30/2024 Gluco se [Mass /volu me] in Arter ial blood glucose [mass/volume ] in capillary blood by glucometer 183 mg/dL low: 70mg/d Lhigh: 99mg/d L high Gluco se WB/PO C 183 (H) 70 - 99 mg/dL 05/30 8:18 AM 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 Not Available Not Available 07/27/2024 14:29:09 05/30/20 24 05/30/2024 Gluco se [Mass /volu me] in Arter ial blood specimen source identified Arteri al Speci men Type Arter ial 05/30 8:18 AM 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 Not Available Not Available 07/27/2024 14:29:09 05/30/20 24 05/30/2024 Gluco se [Mass /volu me] in Arter ial blood interpretati on and review of laboratory results Abnorm al Not Available Not Available 14:29:09 05/30/20 24 05/30/2024 CBC panel - Blood by Autom ated count leukocytes [#/volume] in blood by automated count 6.8 text: 4.0 - 10.7 x10e9/ L WBC 6.8 4.0 - 10.7 x10E9 /L 05/30 6:53 AM [facility] Not Available Not Available 07/27/2024 14:29:09 05/30/20 24 05/30/2024 CBC panel - Blood by Autom ated count erythrocytes [#/volume] in blood by automated count 3.98 text: 3.90 - 5.20 x10e12 /L RBC Count 3.98 3.90 - 5.20 x10E1 2/L 05/30 6:53 AM [facility] Not Available Not Available 07/27/2024 14:29:09 05/30/20 24 05/30/2024 CBC panel - Blood by Autom ated count hemoglobin [mass/volume ] in blood 13 g/dL low: 11.9g/ dLhigh : 15.8g/ dL Hemog lobin 13.0 11.9 - 15.8 g/dL 05/30 6:53 AM [facility] Not Available Not Available 07/27/2024 14:29:09 05/30/20 24 05/30/2024 CBC panel - Blood by Autom ated count hematocrit [volume fraction] of blood by automated count 37.9 % low: 34.8%h igh: 46.1% Hemat ocrit 37.9 34.8 - 46.1 % 05/30 6:53 AM [facility] Not Available Not Available 07/27/2024 14:29:09 05/30/20 24 05/30/2024 CBC panel - Blood by Autom ated count MCV [entitic volume] by automated count 95.2 fL low: 80fLhi gh: 98fL MCV 95.2 80.0 - 98.0 fL 05/30 6:53 AM [facility] Not Available Not Available 07/27/2024 14:29:09 05/30/20 24 05/30/2024 CBC panel - Blood by Autom ated count MCH [entitic mass] by automated count 32.7 pg low: 26.7pg high: 33.6pg MCH 32.7 26.7 - 33.6 pg 05/30 6:53 AM [facility] AIDA Not Available Not Available 07/27/2024 14:29:09 05/30/20 24 05/30/2024 CBC panel - Blood by Autom ated count MCHC [mass/volume ] by automated count 34.3 g/dL low: 31.7g/ dLhigh : 36.3g/ dL MCHC 34.3 31.7 - 36.3 g/dL 05/30 6:53 AM [facility] AT[facility] AIDA Not Available Not Available 07/27/2024 14:29:09 05/30/20 24 05/30/2024 CBC panel - Blood by Autom ated count erythrocyte distribution width [ratio] by automated count 11.9 % low: 11.3%h igh: 14.8% RDW-C V 11.9 11.3 - 14.8 % 05/30 6:53 AM [facility] AIDA Not Available Not Available 07/27/2024 14:29:09 05/30/20 24 05/30/2024 CBC panel - Blood by Autom ated count platelets [#/volume] in blood by automated count 251 text: 150 - 420 x10e9/ L Plate let Count 251 150 - 420 x10E9 /L 05/30 6:53 AM [facility] AIDA Not Available Not Available 07/27/2024 14:29:09 05/30/20 24 05/30/2024 CBC panel - Blood by Autom ated count platelet mean volume [entitic volume] in blood by automated count 9.2 fL low: 7.8fLh igh: 11.4fL MPV 9.2 7.8 - 11.4 fL 05/30 6:53 AM [facility] Not Available Not Available 07/27/2024 14:29:09 05/30/20 24 05/30/2024 CBC panel - Blood by Autom ated count interpretati on and review of laboratory results Normal Not Available Not Available 07/03 14:29:09 05/30/20 24 05/30/2024 Renal funct ion 1999 panel - Serum or Plasm a urea nitrogen [mass/volume ] in serum or plasma 13 mg/dL low: 7mg/dL high: 26mg/d L BUN 13 7 - 26 mg/dL 05/30 7:06 AM [facility] [employer] ATORY [facility] AIDA Not Available Not Available 07/27/2024 14:29:09 05/30/20 24 05/30/2024 Renal funct ion 1999 panel - Serum or Plasm a creatinine [mass/volume ] in serum or plasma 0.49 mg/dL low: 0.56mg /dLhig h: 0.96mg /dL low Creat inine 0.49 (L) 0.56 - 0.96 mg/dL 05/30 7:06 AM [facility] [employer] ATORY [facility]OS[facility] AIDA Not Available Not Available 07/27/2024 14:29:09 05/30/20 24 05/30/2024 Renal funct ion 1999 panel - Serum or Plasm a sodium [moles/volum e] in serum or plasma 135 mmol/ L low: 136mmo l/Lhig h: 145mmo l/L low Sodiu m 135 (L) 136 - 145 mmol/ L 05/30 7:06 AM [facility] [employer] ATORY [facility] AIDA Not Available Not Available 07/27/2024 14:29:09 05/30/20 24 05/30/2024 Renal funct ion 1999 panel - Serum or Plasm a potassium [moles/volum e] in serum or plasma 4.4 mmol/ L low: 3.5mmo l/Lhig h: 4.5mmo l/L Potas sium 4.4 3.5 - 4.5 mmol/ L 05/30 7:06 AM [facility] [employer] ATORY [facility] AIDA Not Available Not Available 07/27/2024 14:29:09 05/30/20 24 05/30/2024 Renal funct ion 1999 panel - Serum or Plasm a chloride [moles/volum e] in serum or plasma 104 mmol/ L low: 98mmol /Lhigh : 107mmo l/L Chlor austin 104 98 - 107 mmol/ L 05/30 7:06 AM [facility] ATORY [facility]OS[facility] AIDA Not Available Not Available 07/27/2024 14:29:09 05/30/20 24 05/30/2024 Renal funct ion 1999 panel - Serum or Plasm a carbon dioxide, total [moles/volum e] in serum or plasma 24 mmol/ L low: 22mmol /Lhigh : 29mmol /L CO2 24 22 - 29 mmol/ L 05/30 7:06 AM [facility] Not Available Not Available 07/27/2024 14:29:09 05/30/20 24 05/30/2024 Renal funct ion 1999 panel - Serum or Plasm a glucose [mass/volume ] in serum or plasma 141 mg/dL low: 70mg/d Lhigh: 99mg/d L high Gluco se 141 (H) 70 - 99 mg/dL 05/30 7:06 [facility] Not Available 07/27/2024 14:29:09 05/30/20 24 05/30/2024 Renal funct ion 1999 panel - Serum or Plasm a albumin [mass/volume ] in serum or plasma by bromocresol green (bcg) dye binding method 4.2 g/dL low: 3.4g/d Lhigh: 5g/dL Album in 4.2 3.4 - 5.0 g/dL 05/30 7:06 [facility] Not [facility] Not Available 07/27/2024 14:29:09 05/30/20 24 05/30/2024 Renal funct ion 1999 panel - Serum or Plasm a calcium [moles/volum e] in serum or plasma 9.6 mg/dL low: 8.4mg/ dLhigh : 10.2mg /dL Calci um 9.6 8.4 - 10.2 mg/dL 05/30 7:06 [facility] Not [facility] Not Available 07/27/2024 14:29:09 05/30/20 24 05/30/2024 Renal funct ion 1999 panel - Serum or Plasm a phosphate [mass/volume ] in serum or plasma 3.7 mg/dL low: 2.9mg/ dLhigh : 5.1mg/ dL Phosp horus 3.7 2.9 - 5.1 mg/dL 05/30 7:06 AM 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IDA Not Available Not Available 07/27/2024 14:29:09 05/30/20 24 05/30/2024 Renal funct ion 2000 panel - Serum or Plasm a anion gap 7 low: 6high: 16 Anion Gap 7 6 - 16 05/30 7:06 AM 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[facility] Not Available Not Available 07/27/2024 14:29:09 05/30/20 24 05/30/2024 Renal funct ion 2000 panel - Serum or Plasm a urea nitrogen/cre atinine [mass ratio] in serum or plasma 27 low: 7high: 23 high BUN/C reati nine Ratio 27 (H) 7 - 23 05/30 7:06 AM 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73 m2 eGFR by CKD-E PI >90 >=90 mL/mi n/1.7 3 m2 05/30 7:06 AM 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IDA Not Available Not Available 07/27/2024 14:29:09 05/30/20 24 05/30/2024 Renal funct ion 2000 panel - Serum or Plasm a interpretati on and review of laboratory results Abnorm al Not Available Not Available 14:29:09 05/30/20 24 05/30/2024 Magne sium [Mass /volu me] in Serum or Plasm a magnesium [mass/volume ] in serum or plasma 1.6 mg/dL low: 1.6mg/ dLhigh : 2.6mg/ dL Magne sium 1.6 1.6 - 2.6 mg/dL 05/30 7:06 AM MACHINE ADJUSTER LE[employer] AT[facility] AIDA Not Available Not Available 07/27/2024 14:29:09 05/30/20 24 05/30/2024 Magne sium [Mass /volu me] in Serum or Plasm a interpretati on and review of laboratory results Normal Not Available Not Available 07/03 14:29:09 05/31/20 24 05/31/2024 Gluco se [Mass /volu me] in Arter ial blood glucose [mass/volume ] in capillary blood by glucometer 227 mg/dL low: 70mg/d Lhigh: 99mg/d L high Gluco se WB/PO C 227 (H) 70 - 99 mg/dL 05/31 9:48 PM MACHINE ADJUSTER LEAD[employer] [facility] AIDA Not Available Not Available 07/27/2024 14:29:10 05/31/20 24 05/31/2024 Gluco se [Mass /volu me] in Arter ial blood specimen source identified Cap Finger stick Speci men Type Cap Finge rstic k 05/31 9:48 PM MACHINE ADJUSTER LEADER [facility] AIDA Not Available Not Available 07/27/2024 14:29:10 05/31/20 24 05/31/2024 Gluco se [Mass /volu me] in Arter ial blood interpretati on and review of laboratory results Abnorm al Not Available Not Available 14:29:10 05/31/20 24 05/31/2024 Gluco se [Mass /volu me] in Arter ial blood glucose [mass/volume ] in capillary blood by glucometer 134 mg/dL low: 70mg/d Lhigh: 99mg/d L high Gluco se WB/PO C 134 (H) 70 - 99 mg/dL 05/31 5:13 PM MACHINE ADJUSTER LEAD[employer] AIDA Not Available Not Available 07/27/2024 14:29:10 05/31/20 24 05/31/2024 Gluco se [Mass /volu me] in Arter ial blood specimen source identified Cap Finger stick Speci men Type Cap Finge rstic k 05/31 5:13 PM 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[facility] Not Available Not Available 07/27/2024 14:29:10 05/31/20 24 05/31/2024 Gluco se [Mass /volu me] in Arter ial blood interpretati on and review of laboratory results Abnorm al Not Available Not Available 14:29:10 05/31/20 24 05/31/2024 Gluco se [Mass /volu me] in Arter ial blood glucose [mass/volume ] in capillary blood by glucometer 153 mg/dL low: 70mg/d Lhigh: 99mg/d L high Gluco se WB/PO C 153 (H) 70 - 99 mg/dL 05/31 8:27 AM MACHINE ADJUSTER LEAD[employer] AIDA Not Available Not Available 07/27/2024 14:29:10 05/31/20 24 05/31/2024 Gluco se [Mass /volu me] in Arter ial blood specimen source identified Cap Finger stick Speci men Type Cap Finge rstic k 05/31 8:27 AM MACHINE ADJUSTER LEADER [facility] AIDA Not Available Not Available 07/27/2024 14:29:10 05/31/20 24 05/31/2024 Gluco se [Mass /volu me] in Arter ial blood interpretati on and review of laboratory results Abnorm al Not Available Not Available 14:29:10 05/31/20 24 05/31/2024 CBC panel - Blood by Autom ated count leukocytes [#/volume] in blood by automated count 7.8 text: 4.0 - 10.7 x10e9/ L WBC 7.8 4.0 - 10.7 x10E9 /L 05/31 6:51 AM 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[facility] Not Available Not Available 07/27/2024 14:29:10 05/31/20 24 05/31/2024 CBC panel - Blood by Autom ated count erythrocytes [#/volume] in blood by automated count 3.94 text: 3.90 - 5.20 x10e12 /L RBC Count 3.94 3.90 - 5.20 x10E1 2/L 05/31 6:51 AM [facility] ATOR HOSPI AIDA Not Available Not Available 07/27/2024 14:29:10 05/31/20 24 05/31/2024 CBC panel - Blood by Autom ated count hemoglobin [mass/volume ] in blood 12.7 g/dL low: 11.9g/ dLhigh : 15.8g/ dL Hemog lobin 12.7 11.9 - 15.8 g/dL 05/31 6:51 AM [facility] ATORY HOSPI AIDA Not Available Not Available 07/27/2024 14:29:10 05/31/20 24 05/31/2024 CBC panel - Blood by Autom ated count hematocrit [volume fraction] of blood by automated count 37.7 % low: 34.8%h igh: 46.1% Hemat ocrit 37.7 34.8 - 46.1 % 05/31 6:51 AM [facility] Not Available Not Available 07/27/2024 14:29:10 05/31/20 24 05/31/2024 CBC panel - Blood by Autom ated count MCV [entitic volume] by automated count 95.7 fL low: 80fLhi gh: 98fL MCV 95.7 80.0 - 98.0 fL 05/31 6:51 AM [facility] ATORY [facility] AIDA Not Available Not Available 07/27/2024 14:29:10 05/31/20 24 05/31/2024 CBC panel - Blood by Autom ated count MCH [entitic mass] by automated count 32.2 pg low: 26.7pg high: 33.6pg MCH 32.2 26.7 - 33.6 pg 05/31 6:51 AM [facility] Not Available Not Available 07/27/2024 14:29:10 05/31/20 24 05/31/2024 CBC panel - Blood by Autom ated count MCHC [mass/volume ] by automated count 33.7 g/dL low: 31.7g/ dLhigh : 36.3g/ dL MCHC 33.7 31.7 - 36.3 g/dL 05/31 6:51 [facility] Not Available Not Available 07/27/2024 14:29:10 05/31/20 24 05/31/2024 CBC panel - Blood by Autom ated count erythrocyte distribution width [ratio] by automated count 12.2 % low: 11.3%h igh: 14.8% RDW-C V 12.2 11.3 - 14.8 % 05/31 6:51 [facility] Not Available Not Available 07/27/2024 14:29:10 05/31/20 24 05/31/2024 CBC panel - Blood by Autom ated count platelets [#/volume] in blood by automated count 258 text: 150 - 420 x10e9/ L Plate let Count 258 150 - 420 x10E9 /L 05/31 6:51 [facility] Not Available Not Available 07/27/2024 14:29:10 05/31/20 24 05/31/2024 CBC panel - Blood by Autom ated count platelet mean volume [entitic volume] in blood by automated count 9.1 fL low: 7.8fLh igh: 11.4fL MPV 9.1 7.8 - 11.4 fL 05/31 6:51 [facility] Not Available Not Available 07/27/2024 14:29:10 05/31/20 24 05/31/2024 CBC panel - Blood by Autom ated count interpretati on and review of laboratory results Normal Not Available Not Available 07/03 14:29:10 05/31/20 24 05/31/2024 Renal funct ion 2000 panel - Serum or Plasm a urea nitrogen [mass/volume ] in serum or plasma 16 mg/dL low: 7mg/dL high: 26mg/d L BUN 16 7 - 26 mg/dL 05/31 7:03 AM [facility] Not Available Not Available 07/27/2024 14:29:10 05/31/20 24 05/31/2024 Renal funct ion 2000 panel - Serum or Plasm a creatinine [mass/volume ] in serum or plasma 0.67 mg/dL low: 0.56mg /dLhig h: 0.96mg /dL Creat inine 0.67 0.56 - 0.96 mg/dL 05/31 7:03 AM [facility] [employer] ATORY HOSPI AIDA Not Available Not Available 07/27/2024 14:29:10 05/31/20 24 05/31/2024 Renal funct ion 1999 panel - Serum or Plasm a sodium [moles/volum e] in serum or plasma 134 mmol/ L low: 136mmo l/Lhig h: 145mmo l/L low Sodiu m 134 (L) 136 - 145 mmol/ L 05/31 7:03 AM [facility] [employer] ATORY [facility]OS[facility] AIDA Not Available Not Available 07/27/2024 14:29:10 05/31/20 24 05/31/2024 Renal funct ion 1999 panel - Serum or Plasm a potassium [moles/volum e] in serum or plasma 4.7 mmol/ L low: 3.5mmo l/Lhig h: 4.5mmo l/L high Potas sium 4.7 (H) 3.5 - 4.5 mmol/ L 05/31 7:03 AM [facility] ATORY HOS[facility] AIDA Not Available Not Available 07/27/2024 14:29:10 05/31/20 24 05/31/2024 Renal funct ion 1999 panel - Serum or Plasm a chloride [moles/volum e] in serum or plasma 102 mmol/ L low: 98mmol /Lhigh : 107mmo l/L Chlor austin 102 98 - 107 mmol/ L 05/31 7:03 [facility] Not Available Not Available 07/27/2024 14:29:10 05/31/20 24 05/31/2024 Renal funct ion 1999 panel - Serum or Plasm a carbon dioxide, total [moles/volum e] in serum or plasma 24 mmol/ L low: 22mmol /Lhigh : 29mmol /L CO2 24 22 - 29 mmol/ L 05/31 7:03 AM [facility] [employer] ATORY HOSPI AIDA Not Available Not Available 07/27/2024 14:29:10 05/31/20 24 05/31/2024 Renal funct ion 1999 panel - Serum or Plasm a glucose [mass/volume ] in serum or plasma 142 mg/dL low: 70mg/d Lhigh: 99mg/d L high Gluco se 142 (H) 70 - 99 mg/dL 05/31 7:03 AM [facility] [employer] ATORY [facility] AIDA Not Available Not Available 07/27/2024 14:29:10 05/31/20 24 05/31/2024 Renal funct ion 1999 panel - Serum or Plasm a albumin [mass/volume ] in serum or plasma by bromocresol green (bcg) dye binding method 4 g/dL low: 3.4g/d Lhigh: 5g/dL Album in 4.0 3.4 - 5.0 g/dL 05/31 7:03 AM [facility] [employer] ATORY [facility] AIDA Not Available Not Available 07/27/2024 14:29:10 05/31/20 24 05/31/2024 Renal funct ion 1999 panel - Serum or Plasm a calcium [moles/volum e] in serum or plasma 9.5 mg/dL low: 8.4mg/ dLhigh : 10.2mg /dL Calci um 9.5 8.4 - 10.2 mg/dL 05/31 7:03 AM [facility] [employer] ATORY [facility] AIDA Not Available Not Available 07/27/2024 14:29:10 05/31/20 24 05/31/2024 Renal funct ion 1999 panel - Serum or Plasm a phosphate [mass/volume ] in serum or plasma 4.2 mg/dL low: 2.9mg/ dLhigh : 5.1mg/ dL Phosp horus 4.2 2.9 - 5.1 mg/dL 05/31 7:03 AM [employer]ACHINE [employer] ATORY [facility] AIDA Not Available Not Available 07/27/2024 14:29:10 05/31/20 24 05/31/2024 Renal funct ion 1999 panel - Serum or Plasm a anion gap 8 low: 6high: 16 Anion Gap 8 6 - 16 05/31 7:03 AM MACHINE AD[employer] LE[employer] ATORY [facility] AIDA Not Available Not Available 07/27/2024 14:29:10 05/31/20 24 05/31/2024 Renal funct ion 1999 panel - Serum or Plasm a urea nitrogen/cre atinine [mass ratio] in serum or plasma 24 low: 7high: 23 high BUN/C reati nine Ratio 24 (H) 7 - 23 05/31 7:03 AM [employer] ATORY [facility]OS[facility] AIDA Not Available Not Available 07/27/2024 14:29:10 05/31/20 24 05/31/2024 Renal funct ion 2000 panel - Serum or Plasm a osmolality calculated 282 text: 275 - 295 mOsm/k g Osmol lubna Calcu lated 282 275 - 295 mOsm/ kg 05/31 7:03 AM [employer] [facility] [employer] AT[facility] AIDA Not Available Not Available 07/27/2024 14:29:10 05/31/20 24 05/31/2024 Renal funct ion 2000 panel - Serum or Plasm a glomerular filtration rate/1.73 sq M.predicted [volume rate/area] in serum, plasma or blood by creatinine-b ased formula (CKD-epi 2020) text: >=90 mL/min /1.73 m2 eGFR by CKD-E PI >90 >=90 mL/mi n/1.7 3 m2 05/31 7:03 AM [facility] [employer] ATORY [facility]OS[facility] AIDA Not Available Not Available 07/27/2024 14:29:10 05/31/20 24 05/31/2024 Renal funct ion 2000 panel - Serum or Plasm a interpretati on and review of laboratory results Abnorm al Not Available Not Available 14:29:10 05/31/20 24 05/31/2024 Magne sium [Mass /volu me] in Serum or Plasm a magnesium [mass/volume ] in serum or plasma 1.7 mg/dL low: 1.6mg/ dLhigh : 2.6mg/ dL Magne sium 1.7 1.6 - 2.6 mg/dL 05/31 7:03 AM [employer] [facility] [employer] AT[facility] AIDA Not Available Not Available 07/27/2024 14:29:09 05/31/20 24 05/31/2024 Magne sium [Mass /volu me] in Serum or Plasm a interpretati on and review of laboratory results Normal Not Available Not Available 07/03 14:29:09 05/31/20 24 05/31/2024 Creat ine kinas e [Enzy matic activ ity/v olume ] in Serum or Plasm a creatine kinase [enzymatic activity/vol ume] in serum or plasma 150 U/L low: 30U/Lh igh: 200U/L CK Total 150 30 - 200 U/L 05/31 7:03 AM 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IDA Not Available Not Available 07/27/2024 14:29:09 05/31/20 24 05/31/2024 Creat ine kinas e [Enzy matic activ ity/v olume ] in Serum or Plasm a interpretati on and review of laboratory results Normal Not Available Not Available 07/03 14:29:09 06/01/19 25 06/01/2024 Gluco se [Mass /volu me] in Arter ial blood glucose [mass/volume ] in capillary blood by glucometer 220 mg/dL low: 70mg/d Lhigh: 99mg/d L high Gluco se WB/PO C 220 (H) 70 - 99 mg/dL 06/01 8:12 PM MACHINE ADJUSTER LEADER [facility] ATORY HOSPI AIDA Not Available Not Available 07/27/2024 14:29:11 06/01/19 25 06/01/2024 Gluco se [Mass /volu me] in Arter ial blood specimen source identified Cap Finger stick Speci men Type Cap Finge rstic k 06/01 8:12 PM MACHINE ADJUSTER LEADER [facility] Not Available Not Available 07/27/2024 14:29:11 06/01/19 25 06/01/2024 Gluco se [Mass /volu me] in Arter ial blood interpretati on and review of laboratory results Abnorm al Not Available Not Available 14:29:11 06/01/19 25 06/01/2024 Gluco se [Mass /volu me] in Arter ial blood glucose [mass/volume ] in capillary blood by glucometer 153 mg/dL low: 70mg/d Lhigh: 99mg/d L high Gluco se WB/PO C 153 (H) 70 - 99 mg/dL 06/01 5:42 PM MACHINE ADJUSTER [facility] Not Available Not Available 07/27/2024 14:29:11 06/01/19 25 06/01/2024 Gluco se [Mass /volu me] in Arter ial blood specimen source identified Cap Finger stick Speci men Type Cap Josh rstic k 06/01 5:42 PM 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 Not Available Not Available 07/27/2024 14:29:11 06/01/19 25 06/01/2024 Gluco se [Mass /volu me] in Arter ial blood interpretati on and review of laboratory results Abnorm al Not Available Not Available 14:29:11 06/01/19 25 06/01/2024 Gluco se [Mass /volu me] in Arter ial blood glucose [mass/volume ] in capillary blood by glucometer 228 mg/dL low: 70mg/d Lhigh: 99mg/d L high Gluco se WB/PO C 228 (H) 70 - 99 mg/dL 06/01 12:39 PM MACHINE ADJUSTER LEADER [employer] [facility] Not Available Not Available 07/27/2024 14:29:10 06/01/19 25 06/01/2024 Gluco se [Mass /volu me] in Arter ial blood specimen source identified Cap Finger stick Speci men Type Cap Josh rstic k 06/01 12:39 PM MACHINE ADJUSTER LEADER [employer] [facility] Not Available Not Available 07/27/2024 14:29:10 06/01/19 25 06/01/2024 Gluco se [Mass /volu me] in Arter ial blood interpretati on and review of laboratory results Abnorm al Not Available Not Available 14:29:10 06/01/19 25 06/01/2024 Gluco se [Mass /volu me] in Arter ial blood glucose [mass/volume ] in capillary blood by glucometer 161 mg/dL low: 70mg/d Lhigh: 99mg/d L high Gluco se WB/PO C 161 (H) 70 - 99 mg/dL 06/01 8:33 AM 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 Not Available Not Available 07/27/2024 14:29:10 06/01/19 25 06/01/2024 Gluco se [Mass /volu me] in Arter ial blood specimen source identified Cap Finger stick Speci men Type Cap Finge rstic k 06/01 8:33 AM [facility] Not Available Not Available 07/27/2024 14:29:10 06/01/19 25 06/01/2024 Gluco se [Mass /volu me] in Arter ial blood interpretati on and review of laboratory results Abnorm al Not Available Not Available 14:29:10 06/01/1906/01/2024 CBC panel - Blood by Autom ated count leukocytes [#/volume] in blood by automated count 5.1 text: 4.0 - 10.7 x10e9/ L WBC 5.1 4.0 - 10.7 x10E9 /L 06/01 4:06 AM [facility] Not Available Not Available 07/27/2024 14:29:10 06/01/1906/01/2024 CBC panel - Blood by Autom ated count erythrocytes [#/volume] in blood by automated count 3.62 text: 3.90 - 5.20 x10e12 /L low RBC Count 3.62 (L) 3.90 - 5.20 x10E1 2/L 06/01 4:06 AM [facility] Not Available Not Available 07/27/2024 14:29:10 06/01/1906/01/2024 CBC panel - Blood by Autom ated count hemoglobin [mass/volume ] in blood 11.8 g/dL low: 11.9g/ dLhigh : 15.8g/ dL low Hemog lobin 11.8 (L) 11.9 - 15.8 g/dL 06/01 4:06 AM [facility] Not Available Not Available 07/27/2024 14:29:10 06/01/1906/01/2024 CBC panel - Blood by Autom ated count hematocrit [volume fraction] of blood by automated count 34.9 % low: 34.8%h igh: 46.1% Hemat ocrit 34.9 34.8 - 46.1 % 06/01 4:[facility] Not Available 07/27/2024 14:29:10 06/01/1906/01/2024 CBC panel - Blood by Autom ated count MCV [entitic volume] by automated count 96.4 fL low: 80fLhi gh: 98fL MCV 96.4 80.0 - 98.0 fL 06/01 4:06 [facility] Not Available 07/27/2024 14:29:10 06/01/1906/01/2024 CBC panel - Blood by Autom ated count MCH [entitic mass] by automated count 32.6 pg low: 26.7pg high: 33.6pg MCH 32.6 26.7 - 33.6 pg 06/01 4:06 [facility] Not Available 07/27/2024 14:29:10 06/01/1906/01/2024 CBC panel - Blood by Autom ated count MCHC [mass/volume ] by automated count 33.8 g/dL low: 31.7g/ dLhigh : 36.3g/ dL MCHC 33.8 31.7 - 36.3 g/dL 06/01 4:06 AM [facility] Not Available 07/27/2024 14:29:10 06/01/1906/01/2024 CBC panel - Blood by Autom ated count erythrocyte distribution width [ratio] by automated count 12.3 % low: 11.3%h igh: 14.8% RDW-C V 12.3 11.3 - 14.8 % 06/01 4:06 AM [facility] Not [facility] Not Available 07/27/2024 14:29:10 06/01/1906/01/2024 CBC panel - Blood by Autom ated count platelets [#/volume] in blood by automated count 239 text: 150 - 420 x10e9/ L Plate let Count 239 150 - 420 x10E9 /L 06/01 4:06 AM [facility] Not [facility] Not Available 07/27/2024 14:29:10 06/01/1906/01/2024 CBC panel - Blood by Autom ated count platelet mean volume [entitic volume] in blood by automated count 9.1 fL low: 7.8fLh igh: 11.4fL MPV 9.1 7.8 - 11.4 fL 06/01 4:06 AM [facility] Not Available Not Available 07/27/2024 14:29:10 06/01/1906/01/2024 CBC panel - Blood by Autom ated count interpretati on and review of laboratory results Abnorm al Not Available Not Available 14:29:10 06/01/19 25 06/01/2024 Renal funct ion 1999 panel - Serum or Plasm a urea nitrogen [mass/volume ] in serum or plasma 16 mg/dL low: 7mg/dL high: 26mg/d L BUN 16 7 - 26 mg/dL 06/01 4:27 AM MACHINE ADJUSTER LEADER [facility] Not Available Not Available 07/27/2024 14:29:10 06/01/1906/01/2024 Renal funct ion 1999 panel - Serum or Plasm a creatinine [mass/volume ] in serum or plasma 0.55 mg/dL low: 0.56mg /dLhig h: 0.96mg /dL low Creat inine 0.55 (L) 0.56 - 0.96 mg/dL 06/01 4:27 AM MACHINE ADJUSTER LEADER [facility] Not Available Not Available 07/27/2024 14:29:10 06/01/1906/01/2024 Renal funct ion 1999 panel - Serum or Plasm a sodium [moles/volum e] in serum or plasma 130 mmol/ L low: 136mmo l/Lhig h: 145mmo l/L low Sodiu m 130 (L) 136 - 145 mmol/ L 06/01 4:27 AM [facility] Not Available Not Available 07/27/2024 14:29:10 06/01/19 25 06/01/2024 Renal funct ion 1999 panel - Serum or Plasm a potassium [moles/volum e] in serum or plasma 4.2 mmol/ L low: 3.5mmo l/Lhig h: 4.5mmo l/L Potas sium 4.2 3.5 - 4.5 mmol/ L 06/01 4:27 AM [facility] ATORY [facility]OS[facility]IDA Not Available Not Available 07/27/2024 14:29:10 06/01/19 25 06/01/2024 Renal funct ion 1999 panel - Serum or Plasm a chloride [moles/volum e] in serum or plasma 100 mmol/ L low: 98mmol /Lhigh : 107mmo l/L Chlor [place] 100 98 - 107 mmol/ L 06/01 4:27 AM [facility] ATORY [facility]IDA Not Available Not Available 07/27/2024 14:29:10 06/01/19 25 06/01/2024 Renal funct ion 1999 panel - Serum or Plasm a carbon dioxide, total [moles/volum e] in serum or plasma 24 mmol/ L low: 22mmol /Lhigh : 29mmol /L CO2 24 22 - 29 mmol/ L 06/01 4:27 AM [facility] ATORY [facility] Not Available Not Available 07/27/2024 14:29:10 06/01/19 25 06/01/2024 Renal funct ion 1999 panel - Serum or Plasm a glucose [mass/volume ] in serum or plasma 237 mg/dL low: 70mg/d Lhigh: 99mg/d L high Gluco se 237 (H) 70 - 99 mg/dL 06/01 4:27 AM [facility] [employer] ATORY HOSPI AIDA Not Available Not Available 07/27/2024 14:29:10 06/01/19 25 06/01/2024 Renal funct ion 1999 panel - Serum or Plasm a albumin [mass/volume ] in serum or plasma by bromocresol green (bcg) dye binding method 3.6 g/dL low: 3.4g/d Lhigh: 5g/dL Album in 3.6 3.4 - 5.0 g/dL 06/01 4:27 AM [facility] [employer] ATORY HOSPI AIDA Not Available Not Available 07/27/2024 14:29:10 06/01/19 25 06/01/2024 Renal funct ion 1999 panel - Serum or Plasm a calcium [moles/volum e] in serum or plasma 8.7 mg/dL low: 8.4mg/ dLhigh : 10.2mg /dL Calci um 8.7 8.4 - 10.2 mg/dL 06/01 4:27 AM [facility] ATORY [facility] Not Available Not Available 07/27/2024 14:29:10 06/01/19 25 06/01/2024 Renal funct ion 2000 panel - Serum or Plasm a phosphate [mass/volume ] in serum or plasma 3.3 mg/dL low: 2.9mg/ dLhigh : 5.1mg/ dL Phosp horus 3.3 2.9 - 5.1 mg/dL 06/01 4:27 AM MACHINE ADJUSTER LEADER [employer] ATORY [facility]OSPI AIDA Not Available Not Available 07/27/2024 14:29:10 06/01/19 25 06/01/2024 Renal funct ion 2000 panel - Serum or Plasm a anion gap 6 low: 6high: 16 Anion Gap 6 6 - 16 06/01 4:27 AM [facility] ATORY [facility]IDA Not Available Not Available 07/27/2024 14:29:10 06/01/19 25 06/01/2024 Renal funct ion 2000 panel - Serum or Plasm a urea nitrogen/cre atinine [mass ratio] in serum or plasma 29 low: 7high: 23 high BUN/C reati nine Ratio 29 (H) 7 - 23 06/01 4:27 AM [facility] ATORY [facility]IDA Not Available Not Available 07/27/2024 14:29:10 06/01/19 25 06/01/2024 Renal funct ion 2000 panel - Serum or Plasm a osmolality calculated 279 text: 275 - 295 mOsm/k g Osmol ality Calcu lated 279 275 - 295 mOsm/ kg 06/01 4:27 AM [facility] ATORY [facility]IDA Not Available Not Available 07/27/2024 14:29:10 06/01/19 25 06/01/2024 Renal funct ion 2000 panel - Serum or Plasm a glomerular filtration rate/1.73 sq M.predicted [volume rate/area] in serum, plasma or blood by creatinine-b ased formula (CKD-epi 2020) text: >=90 mL/min /1.73 m2 eGFR by CKD-E PI >90 >=90 mL/mi n/1.7 3 m2 06/01 4:27 AM [facility] ATORY HOSPI AIDA Not Available Not Available 07/27/2024 14:29:10 06/01/19 25 06/01/2024 Renal funct ion 1999 panel - Serum or Plasm a interpretati on and review of laboratory results Abnorm al Not Available Not Available 14:29:10 06/01/19 25 06/01/2024 Magne sium [Mass /volu me] in Serum or Plasm a magnesium [mass/volume ] in serum or plasma 1.6 mg/dL low: 1.6mg/ dLhigh : 2.6mg/ dL Magne sium 1.6 1.6 - 2.6 mg/dL 06/01 4:27 AM [facility] ATORY [facility]OSPI AIDA Not Available Not Available 07/14/2024 03:21:23 06/01/19 25 06/01/2024 Magne sium [Mass /volu me] in Serum or Plasm a interpretati on and review of laboratory results Normal Not Available Not Available 07/02 03:21:23 06/25/19 25 06/26/2024 Creat ine kinas e [Enzy matic activ ity/v olume ] in Serum or Plasm a creatine kinase [enzymatic activity/vol ume] in serum or plasma 245 U/L low: 29U/Lh igh: 168U/L high CK 245 (H) 29 - 168 U/L 06/26 4:02 AM [facility] LABOR ATORY Not Available Not Available 07/14/2024 03:20:38 06/25/19 25 06/26/2024 Creat ine kinas e [Enzy matic activ ity/v olume ] in Serum or Plasm a interpretati on and review of laboratory results Abnorm al Not Available Not Available 03:20:38 06/25/19 25 06/25/2024 Compr [facility] [place] metab olic 1999 panel - Serum or Plasm a glucose [mass/volume ] in serum or plasma 163 mg/dL low: 70mg/d Lhigh: 99mg/d L high Gluco se 163 (H) 70 - 99 mg/dL 06/25 10:26 PM MACHINE ADJUSTER LEADER [facility] LABOR ATORY Not Available Not Available 07/14/2024 03:20:38 06/25/19 25 06/25/2024 Compr ehens [place] metab olic 1999 panel - Serum or Plasm a sodium [moles/volum e] in serum or plasma 133 mmol/ L low: 136mmo l/Lhig h: 145mmo l/L low Sodiu m 133 (L) 136 - 145 mmol/ L 06/25 10:26 PM MACHINE ADJUSTER LEADER [facility] LABOR ATORY Not Available Not Available 07/14/2024 03:20:38 06/25/19 25 06/25/2024 Compr [facility]hens [place] metab olic 1999 panel - Serum or Plasm a potassium [moles/volum e] in serum or plasma 4.2 mmol/ L low: 3.5mmo l/Lhig h: 5.1mmo l/L Potas sium 4.2 3.5 - 5.1 mmol/ L 06/25 10:26 PM MACHINE ADJUSTER LEADER [facility] LABOR ATORY Not Available Not Available 07/14/2024 03:20:38 06/25/19 25 06/25/2024 Compr ehens [place] metab olic 1999 panel - Serum or Plasm a chloride [moles/volum e] in serum or plasma 101 mmol/ L low: 98mmol /Lhigh : 107mmo l/L Chlor [place] 101 98 - 107 mmol/ L 06/25 10:26 PM MACHINE ADJUSTER LEADER [facility] LABOR ATORY Not Available Not Available 07/14/2024 03:20:38 06/25/1906/25/2024 Compr [facility]hens [place] metab olic 1999 panel - Serum or Plasm a carbon dioxide, total [moles/volum e] in serum or plasma 25 mmol/ L low: 22mmol /Lhigh : 29mmol /L CO2 25 22 - 29 mmol/ L 06/25 10:26 PM MACHINE ADJUSTER LEADER [facility] LABOR ATORY Not Available Not Available 07/14/2024 03:20:38 06/25/19 25 06/25/2024 Compr ehens [place] metab olic 1999 panel - Serum or Plasm a calcium [mass/volume ] in serum or plasma 9.3 mg/dL low: 8.4mg/ dLhigh : 10.4mg /dL Calci um 9.3 8.4 - 10.4 mg/dL 06/25 10:26 PM MACHINE ADJUSTER LEADER [employer] LABOR ATORY Not Available Not Available 07/14/2024 03:20:38 06/25/19 25 06/25/2024 Compr [employer] [place] metab olic 1999 panel - Serum or Plasm a anion gap in blood 7 mmol/ L low: 6mmol/ Lhigh: 16mmol /L Anion Gap 7 6 - 16 mmol/ L 06/25 10:26 PM MACHINE ADJUSTER LEADER [employer] LABOR ATORY Not Available Not Available 07/14/2024 03:20:38 06/25/19 25 06/25/2024 Compr ens [place] metab olic 1999 panel - Serum or Plasm a urea nitrogen [mass/volume ] in serum or plasma 12 mg/dL low: 7mg/dL high: 26mg/d L BUN 12 7 - 26 mg/dL 06/25 10:26 PM MACHINE ADJUSTER LEADER [employer] LABOR ATORY Not Available Not Available 07/14/2024 03:20:38 06/25/1906/25/2024 Compr [employer] [facility] [employer] olic 1999 panel - Serum or Plasm a creatinine [mass/volume ] in serum or plasma 0.73 mg/dL low: 0.57mg /dLhig h: 1.11mg /dL Creat inine 0.73 0.57 - 1.11 mg/dL 06/25 10:26 PM MACHINE ADJUSTER LEADER [employer] LABOR ATORY Not Available Not Available 07/14/2024 03:20:38 06/25/1906/25/2024 Compr [employer] [place] metab olic 1999 panel - Serum or Plasm a alkaline phosphatase [enzymatic activity/vol ume] in serum or plasma 53 U/L low: 40U/Lh igh: 150U/L Alkal ine Phosp hatas e 53 40 - 150 U/L 06/25 10:26 PM MACHINE ADJUSTER LEADER [employer] LABOR ATORY Not Available Not Available 07/14/2024 03:20:38 06/25/19 25 06/25/2024 Compr [employer] [place] metab olic 1999 panel - Serum or Plasm a alanine aminotransfe rase [enzymatic activity/vol ume] in serum or plasma 22 U/L low: 0U/Lhi gh: 55U/L ALT 22 0 - 55 U/L 06/25 10:26 PM MACHINE ADJUSTER LEADER [employer] LABOR ATORY Not Available Not Available 07/14/2024 03:20:38 06/25/19 25 06/25/2024 Compr [employer] [place] [employer] olic 1999 panel - Serum or Plasm a aspartate aminotransfe rase [enzymatic activity/vol ume] in serum or plasma 19 U/L low: 5U/Lhi gh: 34U/L AST 19 5 - 34 U/L 06/25 10:26 PM MACHINE ADJUSTER LEADER [employer] LABOR ATORY Not Available Not Available 07/14/2024 03:20:38 06/25/19 25 06/25/2024 Compr [employer] [place] [employer] olic 1999 panel - Serum or Plasm a protein [mass/volume ] in serum or plasma 7.1 text: 6.4 - 8.3 gm/dL Prote in Total 7.1 6.4 - 8.3 gm/dL 06/25 10:26 PM [employer] LABOR ATORY Not Available Not Available 07/14/2024 03:20:38 06/25/19 25 06/25/2024 Compr [employer] [place] [employer] olic 1999 panel - Serum or Plasm a albumin [mass/volume ] in serum or plasma 3.9 text: 3.4 - 5.0 gm/dL Album in 3.9 3.4 - 5.0 gm/dL 06/25 10:26 PM [employer] LABOR ATORY Not Available Not Available 07/14/2024 03:20:38 06/25/1906/25/2024 Compr [employer] [place] [employer] olic 1999 panel - Serum or Plasm a bilirubin.to aida [mass/volume ] in serum or plasma 0.3 mg/dL low: 0.2mg/ dLhigh : 1.2mg/ dL Bilir ubin Total 0.3 0.2 - 1.2 mg/dL 06/25 10:26 PM MACHINE ADJUSTER LEADER [employer] LABOR ATORY Not Available Not Available 07/14/2024 03:20:38 06/25/19 25 06/25/2024 Compr [employer] [place] [employer] olic 1999 panel - Serum or Plasm a glomerular filtration rate/1.73 sq M.predicted [volume rate/area] in serum, plasma or blood by creatinine-b ased formula (CKD-epi 2020) 89 text: >=90 mL/min /1.73 m2 low eGFR by CKD-E PI 89 (L) >=90 mL/mi n/1.7 3 m2 06/25 10:26 PM MACHINE ADJUSTER LEADER [employer] LABOR ATORY Not Available Not Available 07/14/2024 03:20:38 06/25/1906/25/2024 Compr [facility]hens [place] metab olic 2000 panel - Serum or Plasm a interpretati on and review of laboratory results Abnorm al Not Available Not Available 03:20:38 06/25/1906/25/2024 CBC [employer] al panel - Blood leukocytes [#/volume] in blood by automated count 8.6 text: 4.0 - 10.7 x10e9/ L WBC 8.6 4.0 - 10.7 x10E9 /L 06/25 10:07 PM [employer] LABOR ATORY Not Available Not Available 07/14/2024 03:20:38 06/25/1906/25/2024 CBC W Auto Diffe renti al panel - Blood erythrocytes [#/volume] in blood by automated count 4.2 text: 3.90 - 5.20 x10e12 /L RBC Count 4.20 3.90 - 5.20 x10E1 2/L 06/25 10:07 PM [employer] LABOR ATORY Not Available Not Available 07/14/2024 03:20:38 06/25/1906/25/2024 CBC W Auto Diffe renti al panel - Blood hemoglobin [mass/volume ] in blood 13.3 g/dL low: 11.9g/ dLhigh : 15.8g/ dL Hemog lobin 13.3 11.9 - 15.8 g/dL 06/25 10:07 PM [employer] ATORY Not Available Not Available 07/14/2024 03:20:38 06/25/19 25 06/25/2024 CBC W Auto Diffe renti al panel - Blood hematocrit [volume fraction] of blood by automated count 40.4 % low: 34.8%h igh: 46.1% Hemat ocrit 40.4 34.8 - 46.1 % 06/25 10:07 PM MACHINE ADJUSTER LEADER [facility] LABOR ATORY Not Available Not Available 07/14/2024 03:20:38 06/25/1906/25/2024 CBC W Auto Diffe renti al panel - Blood MCV [entitic volume] by automated count 96.2 fL low: 80fLhi gh: 98fL MCV 96.2 80.0 - 98.0 fL 06/25 10:07 PM MACHINE ADJUSTER LEADER [facility] LABOR ATORY Not Available Not Available 07/14/2024 03:20:38 06/25/1906/25/2024 CBC W Auto Diffe renti al panel - Blood MCH [entitic mass] by automated count 31.7 pg low: 26.7pg high: 33.6pg MCH 31.7 26.7 - 33.6 pg 06/25 10:07 PM MACHINE ADJUSTER LEADER [facility] LABOR ATORY Not Available Not Available 07/14/2024 03:20:38 06/25/1906/25/2024 CBC W Auto Diffe renti al panel - Blood MCHC [mass/volume ] by automated count 32.9 g/dL low: 31.7g/ dLhigh : 36.3g/ dL MCHC 32.9 31.7 - 36.3 g/dL 06/25 10:07 PM MACHINE ADJUSTER LEADER [employer] LABOR ATORY Not Available Not Available 07/14/2024 03:20:38 06/25/1906/25/2024 CBC W Auto Diffe renti al panel - Blood erythrocyte distribution width [ratio] by automated count 12.3 % low: 11.3%h igh: 14.8% RDW-C V 12.3 11.3 - 14.8 % 06/25 10:07 PM MACHINE ADJUSTER LEADER [facility] LABOR ATORY Not Available Not Available 07/14/2024 03:20:38 06/25/1906/25/2024 CBC W Auto Diffe renti al panel - Blood platelets [#/volume] in blood by automated count 224 text: 150 - 420 x10e9/ L Plate let Count 224 150 - 420 x10E9 /L 06/25 10:07 PM MACHINE ADJUSTER LEADER [facility] LABOR ATORY Not Available Not Available 07/14/2024 03:20:38 06/25/1906/25/2024 CBC W Auto Diffe renti al panel - Blood platelet mean volume [entitic volume] in blood by automated count 8.6 fL low: 7.8fLh igh: 11.4fL MPV 8.6 7.8 - 11.4 fL 06/25 10:07 PM MACHINE ADJUSTER LEADER [facility] LABOR ATORY Not Available Not Available 07/14/2024 03:20:38 06/25/1906/25/2024 CBC W Auto Diffe renti al panel - Blood neutrophils/ 100 leukocytes in blood by automated count 69.8 % low: 41%hig h: 74% Neutr ophil % 69.8 41.0 - 74.0 % 06/25 10:07 PM MACHINE ADJUSTER LEADER [facility] LABOR ATORY Not Available Not Available 07/14/2024 03:20:38 06/25/1906/25/2024 CBC W Auto Diffe renti al panel - Blood lymphocytes/ 100 leukocytes in blood by automated count 21.5 % low: 17%hig h: 47% Lymph ocyte % 21.5 17.0 - 47.0 % 06/25 10:07 PM MACHINE ADJUSTER LEADER [facility] LABOR ATORY Not Available Not Available 07/14/2024 03:20:38 06/25/1906/25/2024 CBC W Auto Diffe renti al panel - Blood monocytes/10 0 leukocytes in blood by automated count 5.9 % low: 3%high : 11% Monoc yte % 5.9 3.0 - 11.0 % 06/25 10:07 PM MACHINE ADJUSTER LEADER [facility] LABOR ATORY Not Available Not Available 07/14/2024 03:20:38 06/25/1906/25/2024 CBC W Auto Diffe renti al panel - Blood eosinophils/ 100 leukocytes in blood by automated count 2.3 % low: 0%high : 7% Eosin ophil % 2.3 0.0 - 7.0 % 06/25 10:07 PM MACHINE ADJUSTER LEADER [facility] LABOR ATORY Not Available Not Available 07/14/2024 03:20:38 06/25/19 25 06/25/2024 CBC W Auto Diffe renti al panel - Blood basophils/10 0 leukocytes in blood by automated count 0.2 % low: 0%high : 1.6% Basop hil % 0.2 0.0 - 1.6 % 06/25 10:07 PM MACHINE ADJUSTER LEADER [employer] LABOR ATORY Not Available Not Available 07/14/2024 03:20:38 06/25/19 25 06/25/2024 CBC W Auto Diffe renti al panel - Blood immature granulocytes /100 leukocytes in blood by automated count 0.3 % low: 0%high : 1% Immat ure Granu locyt es % 0.3 0.0 - 1.0 % 06/25 10:07 PM MACHINE ADJUSTER LEADER [employer] LABOR ATORY Not Available Not Available 07/14/2024 03:20:38 06/25/1906/25/2024 CBC W Auto Diffe renti al panel - Blood neutrophils [#/volume] in blood by automated count 6.01 text: 1.60 - 7.50 x10e9/ L Neutr ophil Absol [place] 6.01 1.60 - 7.50 x10E9 /L 06/25 10:07 PM MACHINE ADJUSTER LEADER [employer] LABOR ATORY Not Available Not Available 07/14/2024 03:20:38 06/25/19 25 06/25/2024 CBC W Auto Diffe renti al panel - Blood lymphocytes [#/volume] in blood by automated count 1.85 text: 1.00 - 4.40 x10e9/ L Lymph ocyte Absol [place] 1.85 1.00 - 4.40 x10E9 /L 06/25 10:07 PM MACHINE ADJUSTER LEADER [employer] LABOR ATORY Not Available Not Available 07/14/2024 03:20:38 06/25/1906/25/2024 CBC W Auto Diffe renti al panel - Blood monocytes [#/volume] in blood by automated count 0.51 text: 0.15 - 1.00 x10e9/ L Monoc yte Absol [place] 0.51 0.15 - 1.00 x10E9 /L 06/25 10:07 PM MACHINE ADJUSTER LEADER [employer] LABOR ATORY Not Available Not Available 07/14/2024 03:20:38 06/25/19 25 06/25/2024 CBC W Auto Diffe renti al panel - Blood eosinophils [#/volume] in blood 0.2 text: 0.00 - 0.60 x10e9/ L Eosin ophil Absol [place] 0.20 0.00 - 0.60 x10E9 /L 06/25 10:07 PM MACHINE ADJUSTER LEADER [facility] LABOR ATORY Not Available Not Available 07/14/2024 03:20:38 06/25/19 25 06/25/2024 CBC W Auto Diffe renti al panel - Blood basophils [#/volume] in blood by automated count 0.02 text: 0.00 - 0.13 x10e9/ L Basop hil Absol [place] 0.02 0.00 - 0.13 x10E9 /L 06/25 10:07 PM MACHINE ADJUSTER LEADER [facility] LABOR ATORY Not Available Not Available 07/14/2024 03:20:38 06/25/19 25 06/25/2024 CBC W Auto Diffe renti al panel - Blood interpretati on and review of laboratory results Normal Not Available Not Available 07/02 03:20:38 06/25/19 25 07/01/2024 Bacte tara ident ified in Blood by Cultu re microorganis m identified in specimen by culture No growth day 5 Cultu re No growt h day 5 SHIMA 07/01 2:01 AM MACHINE ADJUSTER LEADER [facility] Not Available Not Available 07/14/2024 03:20:38 06/25/19 25 07/01/2024 Bacte tara ident ified in Blood by Cultu re interpretati on and review of laboratory results Normal Not Available Not Available 07/02 03:20:38 06/25/19 25 07/01/2024 Bacte tara ident ified in Blood by Cultu re microorganis m identified in specimen by culture No growth day 5 Cultu re No growt h day 5 SHIMA 07/01 2:01 AM MACHINE ADJUSTER LEADER [facility] GY Not Available Not Available 07/14/2024 03:20:38 06/25/19 25 07/01/2024 Bacte tara ident ified in Blood by Cultu re interpretati on and review of laboratory results Normal Not Available Not Available 07/02 03:20:38 06/25/19 06/25/2024 Lacta te [Mole s/vol ume] in Blood lactate [moles/volum e] in serum or plasma 1 mmol/ L high: 2mmol/ L Lacti c Acid 1.0 <=2.0 mmol/ L 06/25 10:26 PM MACHINE ADJUSTER LEADER [facility] LABOR ATORY Not Available Not Available 07/14/2024 03:20:38 06/25/1906/25/2024 Lacta te [Mole s/vol ume] in Blood interpretati on and review of laboratory results Normal Not Available Not Available 07/02 03:20:38 06/26/1907/05/2024 Gluco se [Mass /volu me] in Arter ial blood glucose [mass/volume ] in capillary blood by glucometer 123 mg/dL low: 70mg/d Lhigh: 99mg/d L high Gluco se WB/PO C 123 (H) 70 - 99 mg/dL 07/05 8:49 AM MACHINE ADJUSTER LEADER [facility] LABOR ATORY Not Available Not Available 07/14/2024 03:20:39 06/26/1907/05/2024 Gluco se [Mass /volu me] in Arter ial blood specimen source identified Cap Finger stick Speci men Type Cap Finge rstic k 07/05 8:49 AM MACHINE ADJUSTER LEADER [facility] LABOR ATORY Not Available Not Available 07/14/2024 03:20:39 06/26/19 25 07/05/2024 Gluco se [Mass /volu me] in Arter ial blood interpretati on and review of laboratory results Abnorm al Not Available Not Available 03:20:39 06/26/1906/26/2024 Gluco se [Mass /volu me] in Arter ial blood glucose [mass/volume ] in capillary blood by glucometer 136 mg/dL low: 70mg/d Lhigh: 99mg/d L high Gluco se WB/PO C 136 (H) 70 - 99 mg/dL 06/26 6:32 PM [employer] [facility] Not Available Not Available 07/14/2024 03:20:39 06/26/19 25 06/26/2024 Gluco se [Mass /volu me] in Arter ial blood specimen source identified Cap Finger stick Speci men Type Cap Josh rstic k 06/26 6:32 PM MACHINE [employer] [facility] Not Available Not Available 07/14/2024 03:20:39 06/26/19 25 06/26/2024 Gluco se [Mass /volu me] in Arter ial blood interpretati on and review of laboratory results Abnorm al Not Available Not Available 03:20:39 06/26/19 25 06/26/2024 Gluco se [Mass /volu me] in Arter ial blood glucose [mass/volume ] in capillary blood by glucometer 146 mg/dL low: 70mg/d Lhigh: 99mg/d L high Gluco se WB/PO C 146 (H) 70 - 99 mg/dL 06/26 12:53 PM [employer]ACHINE [employer] [facility] [facility] Not Available Not Available 07/14/2024 03:20:39 06/26/19 25 06/26/2024 Gluco se [Mass /volu me] in Arter ial blood specimen source identified Cap Finger stick Speci men Type Cap Josh rstic k 06/26 12:53 PM MACHINE [employer] [facility] [facility] Not Available Not Available 07/14/2024 03:20:39 06/26/19 25 06/26/2024 Gluco se [Mass /volu me] in Arter ial blood interpretati on and review of laboratory results Abnorm al Not Available Not Available 03:20:39 06/26/19 25 06/26/2024 Gluco se [Mass /volu me] in Arter ial blood glucose [mass/volume ] in capillary blood by glucometer 133 mg/dL low: 70mg/d Lhigh: 99mg/d L high Gluco se WB/PO C 133 (H) 70 - 99 mg/dL 06/26 8:26 AM [employer]ACHINE [employer] [facility] Not Available Not Available 07/14/2024 03:20:38 06/26/19 25 06/26/2024 Gluco se [Mass /volu me] in Arter ial blood specimen source identified Cap Finger stick Speci men Type Cap Johne rstic k 06/26 8:26 AM MACHINE ADJUSTER LEADER [facility] AT[facility] Not Available Not Available 07/14/2024 03:20:38 06/26/1906/26/2024 Gluco se [Mass /volu me] in Arter ial blood interpretati on and review of laboratory results Abnorm al Not Available Not Available 03:20:38 06/26/19 25 06/26/2024 Basic metab olic 1999 panel - Serum or Plasm a glucose [mass/volume ] in serum or plasma 122 mg/dL low: 70mg/d Lhigh: 99mg/d L high Gluco se 122 (H) 70 - 99 mg/dL 06/26 5:58 AM MACHINE ADJUSTER LEADER [facility] AT[facility] Not Available Not Available 07/14/2024 03:20:38 06/26/19 25 06/26/2024 Basic metab olic 2000 panel - Serum or Plasm a sodium [moles/volum e] in serum or plasma 133 mmol/ L low: 136mmo l/Lhig h: 145mmo l/L low Sodiu m 133 (L) 136 - 145 mmol/ L 06/26 5:58 AM MACHINE ADJUSTER LEADER [facility] [facility] LABOR AT[facility] Not Available Not Available 07/14/2024 03:20:38 06/26/19 25 06/26/2024 Basic metab olic 2000 panel - Serum or Plasm a potassium [moles/volum e] in serum or plasma 4.2 mmol/ L low: 3.5mmo l/Lhig h: 5.1mmo l/L Potas sium 4.2 3.5 - 5.1 mmol/ L 06/26 5:58 AM MACHINE ADJUSTER LEADER [facility] Not Available Not Available 07/14/2024 03:20:38 06/26/1906/26/2024 Basic metab olic 2000 panel - Serum or Plasm a chloride [moles/volum e] in serum or plasma 100 mmol/ L low: 98mmol /Lhigh : 107mmo l/L Chlor [place] 100 98 - 107 mmol/ L 06/26 5:58 AM MACHINE ADJUSTER LEADER [facility] Not Available Not Available 07/14/2024 03:20:38 06/26/19 25 06/26/2024 Basic metab olic 1999 panel - Serum or Plasm a carbon dioxide, total [moles/volum e] in serum or plasma 25 mmol/ L low: 22mmol /Lhigh : 29mmol /L CO2 25 22 - 29 mmol/ L 06/26 5:58 AM [employer] [facility] ATORY Not Available Not Available 07/14/2024 03:20:38 06/26/1906/26/2024 App[place]o panel - Serum or Plasm a calcium [mass/volume ] in serum or plasma 9 mg/dL low: 8.4mg/ dLhigh : 10.4mg /dL Calci um 9.0 8.4 - 10.4 mg/dL 06/26 5:58 AM [employer] [facility] AT[facility] Not Available Not Available 07/14/2024 03:20:38 06/26/1906/26/2024 [place]o panel - Serum or Plasm a anion gap in blood 8 mmol/ L low: 6mmol/ Lhigh: 16mmol /L Anion Gap 8 6 - 16 mmol/ L 06/26 5:58 AM [employer] [facility] AT[facility] Not Available Not Available 07/14/2024 03:20:38 06/26/19 25 06/26/2024 [place]o panel - Serum or Plasm a urea nitrogen [mass/volume ] in serum or plasma 12 mg/dL low: 7mg/dL high: 26mg/d L BUN 12 7 - 26 mg/dL 06/26 5:58 AM [employer] [facility] ATORY Not Available Not Available 07/14/2024 03:20:38 06/26/1906/26/2024 Appsco panel - Serum or Plasm a creatinine [mass/volume ] in serum or plasma 0.64 mg/dL low: 0.57mg /dLhig h: 1.11mg /dL Creat inine 0.64 0.57 - 1.11 mg/dL 06/26 5:58 AM [employer] [facility] ATORY Not Available Not Available 07/14/2024 03:20:38 06/26/1906/26/2024 Appsco panel - Serum or Plasm a glomerular filtration rate/1.73 sq M.predicted [volume rate/area] in serum, plasma or blood by creatinine-b ased formula (CKD-epi 2020) text: >=90 mL/min /1.73 m2 eGFR by CKD-E PI >90 >=90 mL/mi n/1.7 3 m2 06/26 5:58 AM MACHINE ADJUSTER LEADER [facility] LAB[facility] AT[facility] Not Available Not Available 07/14/2024 03:20:38 06/26/19 25 06/26/2024 Basic metab olic 2000 panel - Serum or Plasm a interpretati on and review of laboratory results Abnorm al Not Available Not Available 03:20:38 06/26/19 25 06/27/2024 Bacte tara ident ified in Urine by Cultu re bacteria identified in urine by culture No growth (<100 CFU/mL ) Cultu re Urine No growt h (<100 CFU/m L) SHIMA 06/27 7:42 AM MACHINE ADJUSTER LEADER [facility] G[facility] Not Available Not Available 07/14/2024 03:20:38 06/26/19 25 06/27/2024 Bacte tara ident ified in Urine by Cultu re interpretati on and review of laboratory results Normal Not Available Not Available 07/02 03:20:38 06/26/19 25 06/26/2024 Urina lysis panel - Urine by Auto color of urine by auto Yellow text: yellow , straw Color UA Yello w Yello w, Straw 06/26 3:30 AM MACHINE ADJUSTER LEADER [facility] LAB[facility] Not Available Not Available 07/14/2024 03:20:38 06/26/19 25 06/26/2024 Urina lysis panel - Urine by Auto clarity in urine by refractometr y automated Clear text: clear Joaquina ty UA Clear Clear 06/26 3:30 AM MACHINE ADJUSTER LEADER [facility] LAB[facility] Not Available Not Available 07/14/2024 03:20:38 06/26/19 25 06/26/2024 Urina lysis panel - Urine by Auto glucose [presence] in urine by test strip Normal text: normal Gluco se UA Mable l Mable l 06/26 3:30 AM MACHINE ADJUSTER LEADER [facility] Not Available Not Available 07/14/2024 03:20:38 06/26/19 25 06/26/2024 Urina lysis panel - Urine by Auto bilirubin.to aida [presence] in urine by test strip Negati ve text: negati ve Bilir ubin UA Negat linwood Negat linwood 06/26 3:30 AM MACHINE ADJUSTER LEADER [facility] Not Available Not Available 07/14/2024 03:20:38 06/26/1906/26/2024 Urina lysis panel - Urine by Auto ketones [presence] in urine by automated test strip Negati ve text: negati ve Keton e UA Negat linwood Negat linwood 06/26 3:30 AM MACHINE ADJUSTER LEADER [facility] Not Available Not Available 07/14/2024 03:20:38 06/26/19 25 06/26/2024 Urina lysis panel - Urine by Auto specific gravity of urine by test strip 1.033 low: 1.005h igh: 1.03 high Speci fic Gravi ty UA 1.033 (H) 1.005 - 1.030 06/26 3:30 AM MACHINE ADJUSTER LEADER [facility] Not Available Not Available 07/14/2024 03:20:38 06/26/1906/26/2024 Urina lysis panel - Urine by Auto hemoglobin [presence] in urine by test strip 3+ text: negati ve abnormal Blood UA 3+ (A) Negat linwood 06/26 3:30 AM MACHINE ADJUSTER LEADER [facility] Not Available Not Available 07/14/2024 03:20:38 06/26/19 25 06/26/2024 Urina lysis panel - Urine by Auto pH of urine by test strip 7 pH low: 5pHhig h: 9pH pH UA 7.0 5.0 - 9.0 pH 06/26 3:30 AM MACHINE ADJUSTER LEADER [facility] Not Available Not Available 07/14/2024 03:20:38 06/26/19 25 06/26/2024 Urina lysis panel - Urine by Auto protein [presence] in urine by test strip Trace text: negati ve abnormal Prote in UA Trace (A) Negat linwood 06/26 3:30 AM MACHINE ADJUSTER LEADER [facility] Not Available Not Available 07/14/2024 03:20:38 06/26/19 25 06/26/2024 Urina lysis panel - Urine by Auto urobilinogen [mass/volume ] in urine by automated test strip Normal text: normal mg/dL Urobi linog en UA Mable l Mable l mg/dL 06/26 3:30 AM MACHINE ADJUSTER LEADER [facility] LAB[facility] Not Available Not Available 07/14/2024 03:20:38 06/26/19 25 06/26/2024 Urina lysis panel - Urine by Auto nitrite [presence] in urine by test strip Negati ve text: negati ve Nitri te UA Negat linwood Negat linwood 06/26 3:30 AM MACHINE ADJUSTER LEADER [facility] Not Available Not Available 07/14/2024 03:20:38 06/26/19 25 06/26/2024 Urina lysis panel - Urine by Auto leukocyte esterase [presence] in urine by test strip 75 JUAN/uL text: negati ve abnormal Leuko cyte UA 75 JUAN/u L (A) Negat linwood 06/26 3:30 AM MACHINE ADJUSTER LEADER [facility] Not Available Not Available 07/14/2024 03:20:38 06/26/19 25 06/26/2024 Urina lysis panel - Urine by Auto erythrocytes [#/area] in urine sediment by automated count >100 text: 0 - 5 # /hpf abnormal RBC UA >100 (A) 0 - 5 # /hpf 06/26 3:30 AM MACHINE ADJUSTER LEADER [facility] Not Available Not Available 07/14/2024 03:20:38 06/26/1906/26/2024 Urina lysis panel - Urine by Auto leukocytes [#/area] in urine sediment by automated count 6-10 text: 0 - 5 # /hpf abnormal WBC UA 6-10 (A) 0 - 5 # /hpf 06/26 3:30 AM MACHINE ADJUSTER LEADER [facility] Not Available Not Available 07/14/2024 03:20:38 06/26/1906/26/2024 Urina lysis panel - Urine by Auto bacteria [presence] in urine by automated None Seen text: none seen Bacte tara UA None Seen None Seen 06/26 3:30 AM MACHINE ADJUSTER LEADER [facility] Not Available Not Available 07/14/2024 03:20:38 06/26/19 25 06/26/2024 Urina lysis panel - Urine by Auto epithelial cells.squamo us [presence] in urine by automated None Seen text: 0 - 5 /hpf Squam ous Epith elial Cells None Seen 0 - 5 /hpf 06/26 3:30 AM MACHINE ADJUSTER LEADER [facility] Not Available Not Available 07/14/2024 03:20:38 06/26/19 25 06/26/2024 Urina lysis panel - Urine by Auto Unknown Analyte Not Available Not Available 07/02 03:20:38 06/26/19 25 06/26/2024 Urina lysis panel - Urine by Auto interpretati on and review of laboratory results Abnorm al Not Available Not Available 03:20:38 06/27/19 25 06/27/2024 Gluco se [Mass /volu me] in Arter ial blood glucose [mass/volume ] in capillary blood by glucometer 219 mg/dL low: 70mg/d Lhigh: 99mg/d L high Gluco se WB/PO C 219 (H) 70 - 99 mg/dL 06/27 8:06 PM MACHINE ADJUSTER LEADER [facility] [facility] Not Available Not Available 07/14/2024 03:20:39 06/27/19 25 06/27/2024 Gluco se [Mass /volu me] in Arter ial blood specimen source identified Arteri al Speci men Type Arter ial 06/27 8:06 PM MACHINE ADJUSTER LEADER [facility] Not Available Not Available 07/14/2024 03:20:39 06/27/19 25 06/27/2024 Gluco se [Mass /volu me] in Arter ial blood interpretati on and review of laboratory results Abnorm al Not Available Not Available 03:20:39 06/27/19 25 06/27/2024 Gluco se [Mass /volu me] in Arter ial blood glucose [mass/volume ] in capillary blood by glucometer 179 mg/dL low: 70mg/d Lhigh: 99mg/d L high Gluco se WB/PO C 179 (H) 70 - 99 mg/dL 06/27 7:03 PM MACHINE ADJUSTER LEADER [facility] Not Available Not Available 07/14/2024 03:20:39 06/27/19 25 06/27/2024 Gluco se [Mass /volu me] in Arter ial blood specimen source identified Cap Finger stick Speci men Type Cap Josh rstic k 06/27 7:03 PM MACHINE ADJUSTER LEADER [facility] Not Available Not Available 07/14/2024 03:20:39 06/27/19 25 06/27/2024 Gluco se [Mass /volu me] in Arter ial blood interpretati on and review of laboratory results Abnorm al Not Available Not Available 03:20:39 06/27/19 25 07/05/2024 Gluco se [Mass /volu me] in Arter ial blood glucose [mass/volume ] in capillary blood by glucometer 175 mg/dL low: 70mg/d Lhigh: 99mg/d L high Gluco se WB/PO C 175 (H) 70 - 99 mg/dL 07/05 8:49 AM MACHINE ADJUSTER LEADER [facility] Not Available Not Available 07/14/2024 03:20:39 06/27/19 25 07/05/2024 Gluco se [Mass /volu me] in Arter ial blood specimen source identified Cap Finger stick Speci men Type [place] rstic k 07/05 8:49 AM MACHINE ADJUSTER LEADER [facility] Not Available Not Available 07/14/2024 03:20:39 06/27/19 25 07/05/2024 Gluco se [Mass /volu me] in Arter ial blood interpretati on and review of laboratory results Abnorm al Not Available Not Available 03:20:39 06/27/19 25 07/05/2024 Gluco se [Mass /volu me] in Arter ial blood glucose [mass/volume ] in capillary blood by glucometer 126 mg/dL low: 70mg/d Lhigh: 99mg/d L high Gluco se WB/PO C 126 (H) 70 - 99 mg/dL 07/05 8:49 AM MACHINE ADJUSTER LEADER [facility] Not Available Not Available 07/14/2024 03:20:39 06/27/19 25 07/05/2024 Gluco se [Mass /volu me] in Arter ial blood specimen source identified Cap Finger stick Speci men Type Cap Josh rstic k 07/05 8:49 AM MACHINE ADJUSTER LEADER [facility] Not Available Not Available 07/14/2024 03:20:39 06/27/19 25 07/05/2024 Gluco se [Mass /volu me] in Arter ial blood interpretati on and review of laboratory results Abnorm al Not Available Not Available 03:20:39 06/27/19 25 06/27/2024 Renal funct ion 1999 panel - Serum or Plasm a glucose [mass/volume ] in serum or plasma 238 mg/dL low: 70mg/d Lhigh: 99mg/d L high Gluco se 238 (H) 70 - 99 mg/dL 06/27 4:40 AM [facility] Not Available Not Available 07/14/2024 03:20:39 06/27/19 25 06/27/2024 Renal funct ion 1999 panel - Serum or Plasm a sodium [moles/volum e] in serum or plasma 133 mmol/ L low: 136mmo l/Lhig h: 145mmo l/L low Sodiu m 133 (L) 136 - 145 mmol/ L 06/27 4:40 AM MACHINE ADJUSTER LEADER [facility] ATORY Not Available Not Available 07/14/2024 03:20:39 06/27/19 25 06/27/2024 Renal funct ion 1999 panel - Serum or Plasm a potassium [moles/volum e] in serum or plasma 4.1 mmol/ L low: 3.5mmo l/Lhig h: 5.1mmo l/L Potas sium 4.1 3.5 - 5.1 mmol/ L 06/27 4:40 AM [facility] Not Available Not Available 07/14/2024 03:20:39 06/27/19 25 06/27/2024 Renal funct ion 1999 panel - Serum or Plasm a chloride [moles/volum e] in serum or plasma 100 mmol/ L low: 98mmol /Lhigh : 107mmo l/L Chlor [place] 100 98 - 107 mmol/ L 06/27 4:40 AM [facility] Not Available Not Available 07/14/2024 03:20:39 06/27/19 25 06/27/2024 Renal funct ion 1999 panel - Serum or Plasm a carbon dioxide, total [moles/volum e] in serum or plasma 26 mmol/ L low: 22mmol /Lhigh : 29mmol /L CO2 26 22 - 29 mmol/ L 06/27 4:40 AM [employer] ATORY Not Available Not Available 07/14/2024 03:20:39 06/27/19 25 06/27/2024 Renal funct ion 1999 panel - Serum or Plasm a calcium [mass/volume ] in serum or plasma 8.6 mg/dL low: 8.4mg/ dLhigh : 10.4mg /dL Calci um 8.6 8.4 - 10.4 mg/dL 06/27 4:40 AM [employer] [facility] AT[facility] Not Available Not Available 07/14/2024 03:20:39 06/27/19 25 06/27/2024 Renal funct ion 1999 panel - Serum or Plasm a anion gap in blood 7 mmol/ L low: 6mmol/ Lhigh: 16mmol /L Anion Gap 7 6 - 16 mmol/ L 06/27 4:40 AM [employer] [facility] ATORY Not Available Not Available 07/14/2024 03:20:39 06/27/19 25 06/27/2024 Renal funct ion 1999 panel - Serum or Plasm a urea nitrogen [mass/volume ] in serum or plasma 13 mg/dL low: 7mg/dL high: 26mg/d L BUN 13 7 - 26 mg/dL 06/27 4:40 AM [employer] [facility] AT[facility] Not Available Not Available 07/14/2024 03:20:39 06/27/19 25 06/27/2024 Renal funct ion 1999 panel - Serum or Plasm a creatinine [mass/volume ] in serum or plasma 0.65 mg/dL low: 0.57mg /dLhig h: 1.11mg /dL Creat inine 0.65 0.57 - 1.11 mg/dL 06/27 4:40 AM [facility] [facility] ATORY Not Available Not Available 07/14/2024 03:20:39 06/27/19 25 06/27/2024 Renal funct ion 1999 panel - Serum or Plasm a albumin [mass/volume ] in serum or plasma 3.6 text: 3.4 - 5.0 gm/dL Album in 3.6 3.4 - 5.0 gm/dL 06/27 4:40 AM [employer] [facility] Not Available Not Available 07/14/2024 03:20:39 06/27/19 25 06/27/2024 Renal funct ion 2000 panel - Serum or Plasm a phosphate [mass/volume ] in serum or plasma 3.3 mg/dL low: 2.5mg/ dLhigh : 4.5mg/ dL Phosp horus 3.3 2.5 - 4.5 mg/dL 06/27 4:40 AM [employer] [facility] AT[facility] Not Available Not Available 07/14/2024 03:20:39 06/27/19 25 06/27/2024 Renal funct ion 1999 panel - Serum or Plasm a glomerular filtration rate/1.73 sq M.predicted [volume rate/area] in serum, plasma or blood by creatinine-b ased formula (CKD-epi 2020) text: >=90 mL/min /1.73 m2 eGFR by CKD-E PI >90 >=90 mL/mi n/1.7 3 m2 06/27 4:40 AM [employer] [facility] ATORY Not Available Not Available 07/14/2024 03:20:39 06/27/19 25 06/27/2024 Renal funct ion 2000 panel - Serum or Plasm a interpretati on and review of laboratory results Abnorm al Not Available Not Available 03:20:39 06/27/19 25 06/27/2024 CBC panel - Blood by Autom ated count leukocytes [#/volume] in blood by automated count 5.7 text: 4.0 - 10.7 x10e9/ L WBC 5.7 4.0 - 10.7 x10E9 /L 06/27 4:31 AM [employer] [facility] ATORY Not Available Not Available 07/14/2024 03:20:39 06/27/19 25 06/27/2024 CBC panel - Blood by Autom ated count erythrocytes [#/volume] in blood by automated count 3.79 text: 3.90 - 5.20 x10e12 /L low RBC Count 3.79 (L) 3.90 - 5.20 x10E1 2/L 06/27 4:31 AM MACHINE ADJUSTER LEADER [facility] Not Available Not Available 07/14/2024 03:20:39 06/27/19 25 06/27/2024 CBC panel - Blood by Autom ated count hemoglobin [mass/volume ] in blood 12.2 g/dL low: 11.9g/ dLhigh : 15.8g/ dL Hemog lobin 12.2 11.9 - 15.8 g/dL 06/27 4:31 AM MACHINE ADJUSTER LEADER [employer] [facility] LABOR AT[facility] Not Available Not Available 07/14/2024 03:20:39 06/27/19 25 06/27/2024 CBC panel - Blood by Autom ated count hematocrit [volume fraction] of blood by automated count 36.1 % low: 34.8%h igh: 46.1% Hemat ocrit 36.1 34.8 - 46.1 % 06/27 4:31 AM [employer] [facility] ATORY Not Available Not Available 07/14/2024 03:20:39 06/27/19 25 06/27/2024 CBC panel - Blood by Autom ated count MCV [entitic volume] by automated count 95.3 fL low: 80fLhi gh: 98fL MCV 95.3 80.0 - 98.0 fL 06/27 4:31 AM [employer] [facility] AT[facility] Not Available Not Available 07/14/2024 03:20:39 06/27/19 25 06/27/2024 CBC panel - Blood by Autom ated count MCH [entitic mass] by automated count 32.2 pg low: 26.7pg high: 33.6pg MCH 32.2 26.7 - 33.6 pg 06/27 4:31 AM [facility] ATORY Not Available Not Available 07/14/2024 03:20:39 06/27/19 25 06/27/2024 CBC panel - Blood by Autom ated count MCHC [mass/volume ] by automated count 33.8 g/dL low: 31.7g/ dLhigh : 36.3g/ dL MCHC 33.8 31.7 - 36.3 g/dL 06/27 4:31 AM [employer] ATORY Not Available Not Available 07/14/2024 03:20:39 06/27/19 25 06/27/2024 CBC panel - Blood by Autom ated count erythrocyte distribution width [ratio] by automated count 12.1 % low: 11.3%h igh: 14.8% RDW-C V 12.1 11.3 - 14.8 % 06/27 4:31 AM MACHINE ADJUSTER LEADER [employer] ATORY Not Available Not Available 07/14/2024 03:20:39 06/27/19 25 06/27/2024 CBC panel - Blood by Autom ated count platelets [#/volume] in blood by automated count 205 text: 150 - 420 x10e9/ L Plate let Count 205 150 - 420 x10E9 /L 06/27 4:31 AM MACHINE ADJUSTER LEADER [facility] ATORY Not Available Not Available 07/14/2024 03:20:39 06/27/19 25 06/27/2024 CBC panel - Blood by Autom ated count platelet mean volume [entitic volume] in blood by automated count 8.7 fL low: 7.8fLh igh: 11.4fL MPV 8.7 7.8 - 11.4 fL 06/27 4:31 AM [employer] ATORY Not Available Not Available 07/14/2024 03:20:39 06/27/19 25 06/27/2024 CBC panel - Blood by Autom ated count interpretati on and review of laboratory results Abnorm al Not Available Not Available 03:20:39 06/28/19 25 06/28/2024 Gluco se [Mass /volu me] in Arter ial blood glucose [mass/volume ] in capillary blood by glucometer 130 mg/dL low: 70mg/d Lhigh: 99mg/d L high Gluco se WB/PO C 130 (H) 70 - 99 mg/dL 06/28 5:48 PM MACHINE ADJUSTER LEADER [facility] ATORY Not Available Not Available 07/14/2024 03:20:40 06/28/19 25 06/28/2024 Gluco se [Mass /volu me] in Arter ial blood specimen source identified Cap Finger stick Speci men Type Cap Finge rstic k 06/28 5:48 PM MACHINE ADJUSTER LEADER [facility] ATORY Not Available Not Available 07/14/2024 03:20:40 06/28/19 25 06/28/2024 Gluco se [Mass /volu me] in Arter ial blood interpretati on and review of laboratory results Abnorm al Not Available Not Available 03:20:40 06/28/19 25 06/28/2024 Vanco mycin [Mass /volu me] in Serum or Plasm a --tro ugh vancomycin [mass/volume ] in serum or plasma --trough 6.1 ug/mL low: 10ug/m Lhigh: 20ug/m L low Vanco mycin Troug h 6.1 (L) 10.0 - 20.0 ug/mL 06/28 1:42 PM MACHINE ADJUSTER LEADER [facility] Not Available Not Available 07/14/2024 03:20:40 06/28/19 25 06/28/2024 Vanco mycin [Mass /volu me] in Serum or Plasm a --tro ugh interpretati on and review of laboratory results Abnorm al Not Available Not Available 03:20:40 06/28/19 25 06/28/2024 Gluco se [Mass /volu me] in Arter ial blood glucose [mass/volume ] in capillary blood by glucometer 189 mg/dL low: 70mg/d Lhigh: 99mg/d L high Gluco se WB/PO C 189 (H) 70 - 99 mg/dL 06/28 12:46 PM MACHINE ADJUSTER LEADER [facility] LAB[facility] ATORY Not Available Not Available 07/14/2024 03:20:40 06/28/19 25 06/28/2024 Gluco se [Mass /volu me] in Arter ial blood specimen source identified Cap Finger stick Speci men Type Cap Finge rstic k 06/28 12:46 PM MACHINE ADJUSTER LEADER [facility] LAB[facility] AT[facility] Not Available Not Available 07/14/2024 03:20:40 06/28/19 25 06/28/2024 Gluco se [Mass /volu me] in Arter ial blood interpretati on and review of laboratory results Abnorm al Not Available Not Available 03:20:40 06/28/19 25 06/28/2024 Gluco se [Mass /volu me] in Arter ial blood glucose [mass/volume ] in capillary blood by glucometer 265 mg/dL low: 70mg/d Lhigh: 99mg/d L high Gluco se WB/PO C 265 (H) 70 - 99 mg/dL 06/28 12:46 PM MACHINE ADJUSTER LEADER [facility] Not Available Not Available 07/14/2024 03:20:39 06/28/1906/28/2024 Gluco se [Mass /volu me] in Arter ial blood specimen source identified Cap Finger stick Speci men Type Cap Finge rstic k 06/28 12:46 PM MACHINE ADJUSTER LEADER [facility] Not Available Not Available 07/14/2024 03:20:39 06/28/19 25 06/28/2024 Gluco se [Mass /volu me] in Arter ial blood interpretati on and review of laboratory results Abnorm al Not Available Not Available 03:20:39 06/28/19 25 06/28/2024 Vanco mycin [Mass /volu me] in Serum or Plasm a --tro ugh vancomycin [mass/volume ] in serum or plasma --trough 14.5 ug/mL low: 10ug/m Lhigh: 20ug/m L Vanco mycin Troug h 14.5 10.0 - 20.0 ug/mL 06/28 5:05 AM MACHINE ADJUSTER LEADER [facility] AT[facility] Not Available Not Available 07/14/2024 03:20:39 06/28/19 25 06/28/2024 Vanco mycin [Mass /volu me] in Serum or Plasm a --tro ugh interpretati on and review of laboratory results Normal Not Available Not Available 07/02 03:20:39 06/28/19 25 06/28/2024 Creat ine kinas e [Enzy matic activ ity/v olume ] in Serum or Plasm a creatine kinase [enzymatic activity/vol ume] in serum or plasma 145 U/L low: 29U/Lh igh: 168U/L CK 145 29 - 168 U/L 06/28 6:46 AM MACHINE ADJUSTER LEADER [facility] Not Available Not Available 07/14/2024 03:20:39 06/28/19 25 06/28/2024 Creat ine kinas e [Enzy matic activ ity/v olume ] in Serum or Plasm a interpretati on and review of laboratory results Normal Not Available Not Available 07/02 03:20:39 06/28/19 25 06/28/2024 Renal funct ion 1999 panel - Serum or Plasm a glucose [mass/volume ] in serum or plasma 188 mg/dL low: 70mg/d Lhigh: 99mg/d L high Gluco se 188 (H) 70 - 99 mg/dL 06/28 5:07 AM [employer] ATORY Not Available Not Available 07/14/2024 03:20:39 06/28/19 25 06/28/2024 Renal funct ion 1999 panel - Serum or Plasm a sodium [moles/volum e] in serum or plasma 133 mmol/ L low: 136mmo l/Lhig h: 145mmo l/L low Sodiu m 133 (L) 136 - 145 mmol/ L 06/28 5:07 AM [employer] [facility] ATORY Not Available Not Available 07/14/2024 03:20:39 06/28/19 25 06/28/2024 Renal funct ion 1999 panel - Serum or Plasm a potassium [moles/volum e] in serum or plasma 4.5 mmol/ L low: 3.5mmo l/Lhig h: 5.1mmo l/L Potas sium 4.5 3.5 - 5.1 mmol/ L 06/28 5:07 AM [employer] ATORY Not Available Not Available 07/14/2024 03:20:39 06/28/19 25 06/28/2024 Renal funct ion 1999 panel - Serum or Plasm a chloride [moles/volum e] in serum or plasma 103 mmol/ L low: 98mmol /Lhigh : 107mmo l/L Chlor [place] 103 98 - 107 mmol/ L 06/28 5:07 AM [employer] ATORY Not Available Not Available 07/14/2024 03:20:39 06/28/19 25 06/28/2024 Renal funct ion 1999 panel - Serum or Plasm a carbon dioxide, total [moles/volum e] in serum or plasma 23 mmol/ L low: 22mmol /Lhigh : 29mmol /L CO2 23 22 - 29 mmol/ L 06/28 5:07 AM [employer] ATORY Not Available Not Available 07/14/2024 03:20:39 06/28/19 25 06/28/2024 Renal funct ion 1999 panel - Serum or Plasm a calcium [mass/volume ] in serum or plasma 8.8 mg/dL low: 8.4mg/ dLhigh : 10.4mg /dL Calci um 8.8 8.4 - 10.4 mg/dL 06/28 5:07 AM [facility] Not Available Not Available 07/14/2024 03:20:39 06/28/19 25 06/28/2024 Renal funct ion 1999 panel - Serum or Plasm a anion gap in blood 7 mmol/ L low: 6mmol/ Lhigh: 16mmol /L Anion Gap 7 6 - 16 mmol/ L 06/28 5:07 AM [employer] [facility] Not Available Not Available 07/14/2024 03:20:39 06/28/19 25 06/28/2024 Renal funct ion 1999 panel - Serum or Plasm a urea nitrogen [mass/volume ] in serum or plasma 15 mg/dL low: 7mg/dL high: 26mg/d L BUN 15 7 - 26 mg/dL 06/28 5:07 [facility] Not Available 07/14/2024 03:20:39 06/28/19 25 06/28/2024 Renal funct ion 1999 panel - Serum or Plasm a creatinine [mass/volume ] in serum or plasma 0.64 mg/dL low: 0.57mg /dLhig h: 1.11mg /dL Creat inine 0.64 0.57 - 1.11 mg/dL 06/28 5:07 AM [employer] [facility] Not Available Not Available 07/14/2024 03:20:39 06/28/19 25 06/28/2024 Renal funct ion 1999 panel - Serum or Plasm a albumin [mass/volume ] in serum or plasma 3.8 text: 3.4 - 5.0 gm/dL Album in 3.8 3.4 - 5.0 gm/dL 06/28 5:07 AM [employer] AT[facility] Not Available Not Available 07/14/2024 03:20:39 01/2806/28/2024 Renal funct ion 1999 panel - Serum or Plasm a phosphate [mass/volume ] in serum or plasma 3 mg/dL low: 2.5mg/ dLhigh : 4.5mg/ dL Phosp horus 3.0 2.5 - 4.5 mg/dL 06/28 5:07 AM [employer] ATORY Not Available Not Available 07/14/2024 03:20:39 06/28/1906/28/2024 Renal funct ion 1999 panel - Serum or Plasm a glomerular filtration rate/1.73 sq M.predicted [volume rate/area] in serum, plasma or blood by creatinine-b ased formula (CKD-epi 2020) text: >=90 mL/min /1.73 m2 eGFR by CKD-E PI >90 >=90 mL/mi n/1.7 3 m2 06/28 5:07 AM [facility] [facility] ATORY Not Available Not Available 07/14/2024 03:20:39 06/28/1906/28/2024 Renal funct ion 2000 panel - Serum or Plasm a interpretati on and review of laboratory results Abnorm al Not Available Not Available 03:20:39 06/28/19 25 06/28/2024 CBC panel - Blood by Autom ated count leukocytes [#/volume] in blood by automated count 6.4 text: 4.0 - 10.7 x10e9/ L WBC 6.4 4.0 - 10.7 x10E9 /L 06/28 4:47 AM [facility] ATORY Not Available Not Available 07/14/2024 03:20:39 06/28/19 25 06/28/2024 CBC panel - Blood by Autom ated count erythrocytes [#/volume] in blood by automated count 4.01 text: 3.90 - 5.20 x10e12 /L RBC Count 4.01 3.90 - 5.20 x10E1 2/L 06/28 4:47 AM [facility] ATORY Not Available Not Available 07/14/2024 03:20:39 06/28/19 25 06/28/2024 CBC panel - Blood by Autom ated count hemoglobin [mass/volume ] in blood 12.8 g/dL low: 11.9g/ dLhigh : 15.8g/ dL Hemog lobin 12.8 11.9 - 15.8 g/dL 06/28 4:47 AM [facility] [facility] ATORY Not Available Not Available 07/14/2024 03:20:39 06/28/19 25 06/28/2024 CBC panel - Blood by Autom ated count hematocrit [volume fraction] of blood by automated count 38.4 % low: 34.8%h igh: 46.1% Hemat ocrit 38.4 34.8 - 46.1 % 06/28 4:47 AM [facility] [facility] ATORY Not Available Not Available 07/14/2024 03:20:39 06/28/19 25 06/28/2024 CBC panel - Blood by Autom ated count MCV [entitic volume] by automated count 95.8 fL low: 80fLhi gh: 98fL MCV 95.8 80.0 - 98.0 fL 06/28 4:47 AM [facility]asted [facility] ATORY Not Available Not Available 07/14/2024 03:20:39 06/28/19 25 06/28/2024 CBC panel - Blood by Autom ated count MCH [entitic mass] by automated count 31.9 pg low: 26.7pg high: 33.6pg MCH 31.9 26.7 - 33.6 pg 06/28 4:47 AM [facility] ATORY Not Available Not Available 07/14/2024 03:20:39 06/28/19 25 06/28/2024 CBC panel - Blood by Autom ated count MCHC [mass/volume ] by automated count 33.3 g/dL low: 31.7g/ dLhigh : 36.3g/ dL MCHC 33.3 31.7 - 36.3 g/dL 06/28 4:47 AM [facility]asted [facility] ATORY Not Available Not Available 07/14/2024 03:20:39 06/28/19 25 06/28/2024 CBC panel - Blood by Autom ated count erythrocyte distribution width [ratio] by automated count 12.1 % low: 11.3%h igh: 14.8% RDW-C V 12.1 11.3 - 14.8 % 06/28 4:47 AM [facility]asted [facility] ATORY Not Available Not Available 07/14/2024 03:20:39 06/28/19 25 06/28/2024 CBC panel - Blood by Autom ated count platelets [#/volume] in blood by automated count 226 text: 150 - 420 x10e9/ L Plate let Count 226 150 - 420 x10E9 /L 06/28 4:47 AM [facility] ATORY Not Available Not Available 07/14/2024 03:20:39 06/28/19 25 06/28/2024 CBC panel - Blood by Autom ated count platelet mean volume [entitic volume] in blood by automated count 8.5 fL low: 7.8fLh igh: 11.4fL MPV 8.5 7.8 - 11.4 fL 06/28 4:47 AM [facility] ATORY Not Available Not Available 07/14/2024 03:20:39 06/28/19 25 06/28/2024 CBC panel - Blood by Autom ated count interpretati on and review of laboratory results Normal Not Available Not Available 07/02 03:20:39 06/28/19 25 06/28/2024 Vanco mycin [Mass /volu me] in Serum or Plasm a --pea k vancomycin [mass/volume ] in serum or plasma --peak 13.6 ug/mL low: 25ug/m Lhigh: 40ug/m L low Vanco mycin Peak 13.6 (L) 25.0 - 40.0 ug/mL 06/28 5:06 AM [facility] ATORY Not Available Not Available 07/14/2024 03:20:39 06/28/19 25 06/28/2024 Vanco mycin [Mass /volu me] in Serum or Plasm a --pea k interpretati on and review of laboratory results Abnorm al Not Available Not Available 03:20:39 07/12/19 25 07/14/2024 Bacte tara ident ified in Urine by Cultu re bacteria identified in urine by culture No growth (<100 CFU/mL ) Cultu re Urine No growt h (<100 CFU/m L) SHIMA 07/14 3:51 AM [employer] [facility] GY Not Available Not Available 07/15/2024 12:44:55 07/12/19 25 07/14/2024 Bacte tara ident ified in Urine by Cultu re interpretati on and review of laboratory results Normal Not Available Not Available 07/02 12:44:55 02/17/20 24 02/17/2024 MRI, cervi katelyn spine , w/o contr ast [facility] [address] [place], [address], 07/17/2024 15:59:29 03/07/20 24 03/07/2024 LDCT, chest , for lung cance r scree derek No observ ation record ed. [email or web address] [place], [address], 03/17/2024 09:49:34 03/07/20 24 03/07/2024 XR, shoul nino No observ ation record ed. [facility] [address] [place], [address], 07/17/2024 15:59:29 03/07/20 24 03/07/2024 XR, ribs, bilat eral No observ ation record ed. [facility] [address] [place], [address], 07/17/2024 15:59:30 03/11/20 24 03/07/2024 XR, ribs, bilat eral No observ ation record ed. [facility] [address] [place], [address], 07/17/2024 15:59:30 04/04/20 24 03/31/2024 PFT, compl ete No observ ation record ed. [facility] [address] [place], [address], 04/07/2024 12:21:07 06/25/19 25 06/25/2024 CT, abdom en + pelvi s, w/ contr ast No observ ation record ed. [email or web address] [facility] [address] [place], [address], 06/27/2024 10:26:23 Result Notes None recorded. Problems Name Problem SNOMED Code Status Onset Date Resolution Date Notes Provider Name and Address Organization Details Recorded Time Essential hypertensi on 94066268 Active 2018 Not Available [facility] 4 06:47:22 Hyponatrem ia 54056394 Active 2018 Not Available [facility] 4 06:47:22 Hyperlipid emia 12689755 Active 2018 Not Available [facility] 4 06:47:22 Carpal tunnel syndrome 07449497 Active 2018 Not Available [facility] 4 06:47:22 Pain of right shoulder joint 1164268704957 9100 Active 2018 Not Available [facility] 4 06:47:21 Type 2 diabetes mellitus 89209119 Active 2018 Not Available [facility] 4 06:47:22 Low back pain 546436746 Active 2018 Not Available [facility] 4 06:47:22 Neuropathy 365514051 Active 2019 Not Available [facility] 4 06:47:22 Restless legs 29838162 Active 2019 Not Available [facility] 4 06:47:22 Insomnia 269900638 Active 2019 Not Available [facility] 4 06:47:21 Under immunized 248230267 Active 2019 Not Available [facility] 4 06:47:22 Acute folliculit is 710534441 Active 2019 Not Available [facility] 4 06:47:21 Irritable bowel syndrome with diarrhea 086872348 Active 2019 Not Available [facility] 4 06:47:22 Acute pharyngiti s 924496379 Active 2019 Not Available [facility] 4 06:47:22 Allergic rhinitis 89656561 Active 2019 Not Available [facility] 4 06:47:22 Allergic conjunctiv itis 137168868 Active 2019 Not Available [facility] 4 06:47:22 Migraine 56430168 Active 2019 Not Available [facility] 4 06:47:22 Pain in right knee Active 2019 Not Available [facility] 4 06:47:22 Hypothyroi dism 71609898 Active 2019 Not Available [facility] 4 06:47:22 Depressive disorder 83638889 Active 2019 Not Available [facility] 4 06:47:22 Administra tion of viral vaccine Active 2020 Not Available [facility] 4 06:47:22 Screening for osteoporos is Active 2020 Not Available [facility] 4 06:47:22 Menopausal syndrome 224480683 Active 2020 Not Available [facility] 4 06:47:21 Diverticul itis 613259695 Active 2020 Not Available [facility] 4 06:47:22 Bronchitis 74231145 Active 2020 Not Available [facility] 4 06:47:22 Osteoarthr itis 996162273 Active 2020 Not Available [facility] 4 06:47:22 Edema of lower extremity 142872419 Active 2020 Not Available [facility] 4 06:47:21 Steatosis of liver 563361509 Active 2020 Not Available [facility] 4 06:47:22 Screening for malignant neoplasm of breast Active 2020 Not Available [facility] 4 06:47:22 Chest pain 36841700 Active 2020 Not Available [facility] 4 06:47:22 Cervical radiculopa thy 37014039 Active 2021 Not Available [facility] 4 06:47:22 Administra tion of tetanus vaccine Active 2021 Not Available [facility] 4 06:47:21 Sleep apnea 53111406 Active 2021 Not Available [facility] 4 06:47:22 Carotid atheroscle rosis 420098906 Active 2021 Not Available [facility] 4 06:47:22 HIV screening Active 2021 Not Available [facility] 4 06:47:21 Dysuria 58853359 Active 2021 Not Available [facility] 4 06:47:22 Disorder of urinary bladder 11514751 Active 2021 Not Available [facility] 4 06:47:22 Acute urinary tract infection 377753726 Active 2021 Not Available [facility] 4 06:47:22 Screening colonoscop y Active 2021 Not Available [facility] 4 06:47:22 Screening for malignant neoplasm of colon Active 2021 Not Available [facility] 4 06:47:22 Venous varices 516877780 Active 2021 Not Available [facility] 4 06:47:21 Incontinen ce 92508458 Active 2021 Not Available [facility] 4 06:47:22 Notes:Some problems listed i n Document: #[id number] could not be added to this patient's chart. Please review this document and add these problems to the patient's chart manually as needed. Problem Notes None recorded. Procedures Surgical History Date Name Laterality Status Provider Name and Address Organization Details Recorded Time 10/31/19 21 Date of Last Pap Smear completed Tiffany Samuel MA [facility] 10/30/2020 10:50:02 04/17/20 20 Date of Last Mammogram completed Tiffany Samuel MA [facility] 10/30/2020 10:34:12 06/01/18 85 hysterectomy completed Chanda Sharma [facility] 05/10/2018 11:03:09 06/01/18 85 Total hysterectomy completed EMMETT JOHNSON Attn: [email or web address] [place], [address], [place] [facility] 10/30/2020 11:28:17 lumpectomy of right breast completed [facility] - [facility] 05/10/2018 11:02:[address] [facility] 05/10/2018 11:03:[address] [facility] 05/10/2018 11:03:38 repair of vault of vagina by vaginal approach completed Yara Carr MA [facility] 11/24/2023 14:44:51 Imaging Results Imaging Date Name Status LastModified by [facility] Details LastModified Time 02/17/2024 MRI, cervical spine, w/o contrast completed [facility] [address] [place], [address], 07/17/2024 15:59:29 03/07/2024 LDCT, chest, for lung cancer screening completed [address] [place], [address], 03/17/2024 09:49:34 03/07/2024 XR, shoulder completed [facility] [address] [place], [address], 07/17/2024 15:59:29 03/07/2024 XR, ribs, bilateral completed [facility] [address] [place], [address], 07/17/2024 15:59:30 03/07/2024 XR, ribs, bilateral completed [facility] [address] [place], [address], 07/17/2024 15:59:30 03/31/2024 PFT, complete completed [facility] [address] [place], [address], 04/07/2024 12:21:07 06/25/2024 CT, abdomen + pelvis, w/ contrast completed [address] [facility], [address], 06/27/2024 10:26:23 Procedure Notes None recorded. Medical Equipment None Reported. Allergies Allergen ID Allergen Name Allergen Category Reaction Reaction Severity Criticality Documentation Date Start Date Code Code System Note Provider Name and Address Organization Details Recorded Time 582429 codeine medicatio n Not available Not available Not available 06/23/20192023 2670 RxNorm freez ing cold with chill s Not Available Not Available Not Available 391051 baclofen medicatio n Not available Not available Not available 06/23/20192023 1292 RxNorm Not Available Not Available Not Available 694915 cyclobenz aprine medicatio n Not available Not available Not available 03/30/2024 51750 RxNorm Not Available Not Available Not Available Medications Name Sig Start Date Stop Date Status Note LastModified by Organization Details LastModified Time cyclobenz aprine 10 mg tablet Take 1 tablet every day by oral route at bedtime for 30 days. 03/07 completed Not Available Not Available Not Available amoxicill in 500 mg capsule active Not Available Not Available Not Available pramipexo le 1 mg tablet 09/25 completed Not Available Not Available Not Available metformin 500 mg tablet TAKE 1 TABLET BY MOUTH TWICE DAILY 2024 active Not Available Not Available Not Avai lable gabapenti n 600 mg tablet TAKE 1 TABLET BY MOUTH THREE TIMES DAILY 2024 active Not Available Not Available Not Avai lable doxycycli ne hyclate 100 mg capsule TAKE ONE CAPSULE BY MOUTH DAILY 04/30 completed Not Available Not Available Not Available atorvasta tin 20 mg tablet TAKE 1 TABLET BY MOUTH EVERY DAY active Not Available Not Available No t Available ipratropi um 0.5 mg-albute rol 3 mg (2.5 mg base)/3 mL nebulizat ion soln 10/09 completed Not Available Not Available Not Available ammonium lactate 12 % lotion APPLY TOPICALL Y TO FEET TWICE DAILY NEEDED 11/23 completed Not Available Not Available Not Available trazodone 50 mg tablet TAKE 1/2 TO 1 TABLET BY MOUTH EVERY NIGHT AT BEDTIME 04/30 completed Not Available Not Available Not Available atorvasta tin 10 mg tablet TAKE 1 TABLET BY MOUTH EVERY DAY 09/17 completed controll ed without this med 05/2020 Not Available Not Available Not Available oxybutyni n chloride ER 10 mg tablet,ex tended release 24 hr 11/23 completed Not Available Not Available Not Available azithromy lakisha 250 mg tablet TK 2 TS PO ON DAY 1, THEN TK 1 T PO D FOR 4 DAYS AFTER A MEAL. 01/19 completed Not Available Not Available Not Available ibuprofen 800 mg tablet TAKE 1 TABLET BY MOUTH THREE TIMES DAILY WITH FOOD 10/25 completed upset stomach Not Available Not Available Not Available fluconazo le 150 mg tablet TAKE 1 BY MOUTH EVERY 2 WEEKS 09/15 completed Not Available Not Available Not Available sumatript an 100 mg tablet Take 1 tablet as needed by oral route for 9 days. 09/20 completed Not Available Not Available Not Available tolterodi ne ER 4 mg capsule,e xtended release 24 hr 11/23 completed Not Available Not Available Not Available Nystop 100,000 unit/gram topical powder APPLY TO THE AFFECTED AREA(S) BY TOPICAL ROUTE 2 TIMES PER DAY 04/30 completed Not Available Not Available Not Available sodium bicarbona te 325 mg tablet TAKE 1 TABLET BY MOUTH TWICE DAILY 09/15 completed Not Available Not Available Not Available fluconazo le 200 mg tablet 06/23 completed Not Available Not Available Not Available meloxicam 15 mg tablet TAKE 1 TABLET BY MOUTH EVERY DAY WITH A MEAL 05/09 completed per pt Not Available Not Available Not Available prednison e 20 mg tablet TAKE 3 TABLETS BY MOUTH DAILY 05/10 completed Not Available Not Available Not Available gabapenti n 400 mg capsule 11/15 completed Not Available Not Available Not Available clobetaso l 0.05 % topical cream APPLY A THIN LAYER TO THE AFFECTED AREA(S) BY TOPICAL ROUTE 2 TIMES PER DAY. Do not use more than two weeks in a row. active Not Available Not Available No t Available olanzapin e 10 mg tablet Take 1 tablet every day by oral route for 30 days. 09/20 completed Not Available Not Available Not Available amlodipin e 2.5 mg tablet Take 1 tablet every day by oral route in the morning for 30 days. active Not Available Not Available No t Available amlodipin e 5 mg tablet TAKE 1 TABLET BY MOUTH EVERY DAY 2024 active Not Available Not Available Not Avai lable ciproflox acin 500 mg tablet TAKE 1 TABLET BY MOUTH EVERY 12 HOURS FOR 7 DAYS active Not Available Not Available No t Available sulfameth oxazole 800 mg-trimet hoprim 160 mg tablet TAKE 1 TABLET BY MOUTH EVERY 12 HOURS FOR 5 DAYS 09/15 completed Not Available Not Available Not Available hydrocodo ne 10 mg-acetam inophen 325 mg tablet active Not Available Not Available Not Available liothyron ine 5 mcg tablet TAKE 1 TABLET BY MOUTH EVERY DAY BEFORE A MEAL 2023 active Not Available Not Available Not Avai lable aspirin 81 mg tablet,de layed release TAKE 1 TABLET BY MOUTH EVERY DAY active Not Available Not Available No t Available tramadol 50 mg tablet one tab po tid prn pain active Not Available Not Available No t Available triamcino lone acetonide 0.1 % topical cream APPLY THIN LAYER TOPICALL Y TO THE AFFECTED AREA DAILY 04/30 completed Not Available Not Available Not Available prednison e 10 mg tablets in a dose pack FOLLOW PACKAGE DIRECTIO NS 02/25 completed Not Available Not Available Not Available pramipexo le 0.5 mg tablet TAKE 1 TABLET BY MOUTH THREE TIMES DAILY 2024 active Not Available Not Available Not Avai lable methylpre dnisolone acetate 80 mg/mL suspensio n for injection Take 1 mL by injectio n route for 1 day. 04/30 completed Not Available Not Available Not Available meloxicam 7.5 mg tablet 03/15 completed Not Available Not Available Not Available levothyro xine 88 mcg tablet TAKE 1 TABLET BY MOUTH EVERY DAY 2024 active Not Available Not Available Not Avai lable estradiol 1 mg tablet TAKE 1 TABLET BY MOUTH DAILY 10/09 completed Not Available Not Available Not Available benzonata te 100 mg capsule Take 1 capsule 3 times a day by oral route as needed for 10 days. 08/13 completed Not Available Not Available Not Available doxycycli ne monohydra te 100 mg capsule TAKE 1 CAPSULE BY MOUTH TWICE DAILY FOR 7 DAYS 02/25 completed Not Available Not Available Not Available triamcino lone acetonide 40 mg/mL suspensio n for injection Take 1 mL by injectio n route for 1 day. active Not Available Not Available No t Available cephalexi n 500 mg capsule 01/19 completed Not Available Not Available Not Available nystatin 100,000 unit/gram topical cream APPLY TOPICALL Y TO THE AFFECTED AREA TWICE DAILY 09/15 completed Not Available Not Available Not Available clotrimaz ole-betam ethasone 1 %-0.05 % topical cream 06/23 completed Not Available Not Available Not Available progester one micronize d 200 mg capsule Medicati on disconti nued active Not Available Not Available No t Available monteluka st 10 mg tablet TAKE 1 TABLET BY MOUTH EVERY DAY active Not Available Not Available No t Available alcohol swabs USE TO CHECK BLOOD SUGAR ONCE DAILY active Not Available Not Available No t Available estradiol 0.5 mg tablet TAKE 1 TABLET BY MOUTH EVERY DAY 01/09 completed Not Available Not Available Not Available estradiol 0.01% (0.1 mg/gram) vaginal cream active Not Available Not Available Not Available methylpre dnisolone 4 mg tablets in a dose pack 06/23 completed Not Available Not Available Not Available albuterol sulfate HFA 90 mcg/actua tion aerosol inhaler INHALE 2 PUFFS BY MOUTH EVERY 4 HOURS NEEDED active Not Available Not Available No t Available Vitamin D2 1,250 mcg (50,000 unit) capsule TAKE 1 CAPSULE BY MOUTH WEEKLY 10/09 completed Not Available Not Available Not Available norethind greg (contrace ptive) 0.35 mg tablet TAKE 1 TABLET BY MOUTH EVERY DAY 07/11 completed Not Available Not Available Not Available lysine 500 mg tablet one tab po q d 2023 active Not Available Not Available Not Avai lable losartan 100 mg tablet TAKE 1 TABLET BY MOUTH DAILY active Not Available Not Available No t Available fluticaso ne propionat e 50 mcg/actua tion nasal spray,nalini pension SHAKE LIQUID AND USE 1 SPRAY IN EACH NOSTRIL TWICE DAILY 04/30 completed Not Available Not Available Not Available metformin ER 500 mg tablet,ex tended release 24 hr TAKE 1 TABLET BY MOUTH EVERY DAY 09/15 completed Not Available Not Available Not Available dicyclomi ne 10 mg capsule TAKE 1 CAPSULE BY MOUTH TWICE DAILY 30 MINUTES BEFORE FOOD. MAY INCREASE TO 4 TIMES DAILY NEEDED 11/23 completed Not Available Not Available Not Available loratadin e 10 mg tablet TAKE 1 TABLET BY MOUTH EVERY MORNING( FOLLOW PACKET INSERT) 2024 active Not Available Not Available Not Avai lable glipizide 5 mg tablet 09/20 completed Not Available Not Available Not Available progester one micronize d 100 mg capsule TAKE 1 CAPSULE BY MOUTH DAILY 10/09 completed Not Available Not Available Not Available amoxicill in 875 mg-potass ium clavulana te 125 mg tablet TAKE 1 TABLET BY MOUTH TWICE DAILY 09/15 completed Not Available Not Available Not Available amoxicill in 500 mg-potass ium clavulana te 125 mg tablet TAKE 1 TABLET BY MOUTH EVERY 12 HOURS FOR 5 DAYS 01/19 completed Not Available Not Available Not Available Perianal Cleansing topical Apply 1 applicat ion twice a day by topical route as needed for 30 days. 11/23 completed Not Available Not Available Not Available metformin ER 500 mg tablet,ex tended release 24hr (osmotic) Take 1 tablet every day by oral route for 30 days. 09/15 completed Not Available Not Available Not Available nitrofura ntoin monohydra te/macroc rystals 100 mg capsule TAKE 1 CAPSULE BY MOUTH EVERY 12 HOURS FOR 5 DAYS active Not Available Not Available No t Available trospium 20 mg tablet active Not Available Not Available Not Available duloxetin e 30 mg capsule,d elayed release TAKE 1 CAPSULE BY MOUTH EVERY DAY AT NOON FOR 7 DAYS 09/20 completed Not Available Not Available Not Available duloxetin e 60 mg capsule,d elayed release TAKE 1 CAPSULE BY MOUTH EVERY DAY IN THE EVENING 09/20 completed Not Available Not Available Not Available omega-3 acid ethyl esters 1 gram capsule TAKE 2 CAPSULES BY MOUTH TWICE DAILY AFTER MEALS 2024 active Not Available Not Available Not Avai lable darifenac in ER 15 mg tablet,ex tended release 24 hr 11/23 completed Not Available Not Available Not Available Fish Oil 11/23 completed Not Available Not Available Not Available aripipraz ole 2 mg tablet 10/09 completed Not Available Not Available Not Available cholecalc iferol (vitamin D3) 25 mcg (1,000 unit) tablet two tabs po bid 2023 active Not Available Not Available Not Avai lable calcium 600 mg (as carbonate )-vitamin D3 10 mcg (400 unit) tablet TAKE 1 TABLET BY MOUTH TWICE DAILY 2024 active Not Available Not Available Not Avai lable hydrochlo rothiazid e 12.5 mg tablet TAKE 1 TABLET BY MOUTH EVERY DAY active Not Available Not Available No t Available budesonid e-formote rol HFA 160 mcg-4.5 mcg/actua tion aerosol inhaler INHALE 2 PUFFS BY MOUTH TWICE DAILY 04/30 completed Not Available Not Available Not Available cholecalc iferol (vitamin D3) 1,250 mcg (50,000 unit) capsule TAKE ONE CAPSULE BY MOUTH EVERY WEEK DIRECTED . 09/15 completed Not Available Not Available Not Available trospium ER 60 mg capsule,e xtended release 24 hr 11/23 completed Not Available Not Available Not Available Calcium 500 + D 500 mg-10 mcg (400 unit) tablet Take 2 tablets every day by oral route as directed for 30 days. 2023 active Not Available Not Available Not Avai lable OneTouch Verio test strips fasting acu check q am active Not Available Not Available No t Available Combivent Respimat 20 mcg-100 mcg/actua tion solution for inhalatio n INHALE 1 INHALATI ON BY MOUTH FOUR TIMES DAILY FOR 10 DAYS NEEDED 04/30 completed Not Available Not Available Not Available Myrbetriq 50 mg tablet,ex tended release TAKE 1 TABLET BY MOUTH EVERY DAY 11/23 completed Not Available Not Available Not Available Pennsaid 20 mg/gram/a ctuation (2 %) topical soln in metered-d ose pump APPLY 2 PUMPS (40 MG) TO THE AFFECTED KNEE(S) BY TOPICAL ROUTE 2 TIMES PER DAY. Please give her time to get to the door ... call ahead to let her know you are on your way 04/30 completed Not Available Not Available Not Available Stiolto Respimat 2.5 mcg-2.5 mcg/actua tion solution for inhalatio n INHALE 2 PUFFS BY MOUTH EVERY DAY active Not Available Not Available No t Available Fish Oil 1,000 mg (120 mg-180 mg) capsule one capsule po bid 2023 active Not Available Not Available Not Avai susan Linzess 72 mcg capsule 09/20 completed Not Available Not Available Not Available Tremarko Ellipta 100 mcg-62.5 mcg-25 mcg powder for inhalatio n INHALE 1 PUFF BY MOUTH EVERY DAY FOR 30 DAYS active Not Available Not Available No t Available OneTouch Delica Plus Lancet 33 gauge USE TO CHECK BLOOD SUGAR ONCE EVERY DAY active Not Available Not Available No t Available OneTouch Delica Plus Lancet 30 gauge USE TO CHECK BLOOD SUGAR ONCE DAILY active Not Available Not Available No t Available omega-3 300 mg-dha 120 mg-epa 180 mg-fish oil 1,000 mg capsule TAKE 1 CAPSULE BY MOUTH TWICE DAILY 03/02 completed Not Available Not Available Not Available Vitals Date Recorded Body height Body mass index (BMI) Body weight Oxygen saturation Oxygen saturation in Arterial blood by Pulse oximetry Heart rate Systolic blood pressure Diastolic blood pressure Provider Name and Address Organization Details Last Updated DateTime 4 172.72 cm 23.4 kg/m2 19670.2 2 g 98 % 98 % 83 /min 128 mm[Hg] 78 mm[Hg] Yara Carr MA [facility] 4 10:36:43 Date Recorded Body height Body temperature Pain severity - 0-10 verbal numeric rating [Score] - Reported Body mass index (BMI) Body weight Heart rate Systolic blood pressure Diastolic blood pressure Provider Name and Address Organization Details Last Updated DateTime 4 172.72 cm 97.5 [degF] 4 23.6 kg/m2 02040.8 2 g 89 /min 112 mm[Hg] 53 mm[Hg] Nevin Sommer MA [facility] 4 09:59:00 Date Recorded Body height Provider Name an d Address Organization Details Last Updated DateTime 04/15/2024 172.72 cm Tobi Young MA [facility] 2023 16:36:39 Date Recorded Body height Body temperature Respiratory rate Oxygen saturation Oxygen saturation in Arterial blood by Pulse oximetry Heart rate Systolic blood pressure Diastolic blood pressure Provider Name and Address Organization Details Last Updated DateTime 4 172.72 cm 97.9 [degF] 18 /min 92 % 92 % 106 /min 130 mm[Hg] 58 mm[Hg] Fatmata Delong LPN [facility] 4 10:37:02 Date Recorded Body height Heart rate Body temperature Pain severity - 0-10 verbal numeric rating [Score] - Reported Systolic blood pressure Diastolic blood pressure Provider Name and Address Organization Details Last Updated DateTime 5 172.72 cm 104 /min 97.9 [degF] 0 139 mm[Hg] 65 mm[Hg] Alia Zavala MA [facility] 5 11:20:26 Social History Question Answer Notes LastModified by Organizat ion Details LastModified Time Tobacco Smoking Status Current Every Day Smoker Chanda Hughessean pinon, [facility] 05/10/2018 10:59:42 Do You Have An Advance Directive? No Information not available 09/22/2019 What Is Your Level Of Alcohol Consumption? None Information not available 05/10/2018 Are You Blind Or Do You Have Difficulty Seeing? No Information not available 09/13/2020 Is Blood Transfusion Acceptable In An Emergency? Yes Information not available 09/22/2019 What Is Your Level Of Caffeine Consumption? Moderate Information not available 09/22/2019 How Much Tobacco Do You Chew? None Information not available 09/22/2019 In The 14 Days Before Symptom Onset, Have You Had Close Contact With A Laboratory-confir med COVID-19 While That Case Was Ill? No Information not available 09/20/2020 In The 14 Days Before Symptom Onset, Have You Had Close Contact With A Person Who Is Under Investigation For COVID-19 While That Person Was Ill? No Information not available 09/20/2020 Have You Been To An Area Known To Be High Risk For COVID-19? No Information not available 09/20/2020 Are You Currently Employed? No Information not available 05/10/2018 Are You Deaf Or Do You Have Serious Difficulty Hearing? No Information not available 09/13/2020 What Type Of Diet Are You Following? REGULAR Information not available 09/22/2019 Which Illicit Or Recreational Drugs Have You Used? Denied Information not available 05/10/2018 Do You Or Have You Ever Used E-cigarettes Or Vape? Never Used Electronic Cigarettes Information not available 03/07/2020 Education 2 Year College Informatio n not available 05/10/2018 Are There Any Guns Present In Your Home? No Information not available 09/13/2020 Do You Have A Medical Power Of Bead Wire Taper? No [email or web address] Information not available 12/16/2023 What Was The Date Of Your Most Recent Tobacco Screening? 06/17/2024 [email or web address] Information not available 06/17/2024 How Many Children Do You Have? 1 Information not available 05/10/2018 Performs Monthly Self-breast Exam? Yes Information no t available 09/22/2019 What Is Your Relationship Status? Information not available 05/10/2018 Do You Use Your Seat Belt Or Car Seat Routinely? Yes Information not available 09/13/2020 Seat Belts Used Routinely Yes Information not available 09/22/2019 Are You Sexually Active? No Information not available 09/22/2019 Do You Have Smoke And Carbon Monoxide Detectors In Your Home? Yes Information not available 09/13/2020 At What Age Did You Start Smoking Tobacco? 17 Information not available 09/22/2019 Are You Passively Exposed To Smoke? No Information no t available 09/13/2020 Do You Or Have You Ever Used Smokeless Tobacco? Never Used Smokeless Tobacco Information not available 03/07/2020 How Much Tobacco Do You Smoke? 1 PPD Information not available 06/25/2020 General Stress Level Medium Information not available 09/22/2019 Do You Feel Stressed (tense, Restless, Nervous, Or Anxious, Or Unable To Sleep At Night)? [id number] Information not available 09/13/2020 Do You Use Any Illicit Or Recreational Drugs? No Information not available 09/13/2020 Do You Use Sunscreen Routinely? No Information not available 09/22/2019 Has Tobacco Cessation Counseling Been Provided? Yes [email or web address] Information not available 12/25/2021 On What Date Was Tobacco Cessation Counseling Provided? 02/26/2024 [email or web address] Information not available 02/26/2024 Do You Or Have You Ever Used Any Other Forms Of Tobacco Or Nicotine? No Information not available 09/20/2020 Sex: Female Functional Status Question Answer Note LastModified by Organization D etails LastModified Time Are you able to care for yourself? Yes Information n ot available 09/13/2020 What is your exercise level? None Information not available 09/22/2019 Mental Status None recorded. Family History Relationship Description Onset Age of this Age Resolved Age Notes LastModified by Organization Details LastModified Time Mother Malignant tumor of ovary Not available 2017 11:07:39 Sister Malignant tumor of breast Not available 2017 11:07:59 Maternal Aunt Malignant tumor of breast Not available 2017 11:07:59 Maternal Aunt Malignant tumor of colon Not available 2017 11:08:12 Maternal Grandmother Malignant tumor of cervix [email or web address] Not available 09/20 11:49:02 Medical History Condition Response High Blood Pressure Y Atrial Fibrillation N Thyroid Problems Y Blood Clots N COPD N Depression Y Anemia Y Heart Attack (CO) N Diabetes Y Anxiety Disorder N Acid Reflux (GERD) N Cancer Asthma N Allergies Y High Cholesterol Y Heart Failure N Gynecological History Statement/Question Response Menses Monthly N If Post Menopausal, Age at Menopause 29 Date of Last Pap Smear 10/30/2020 Current Control Method Menopause Date of Last Mammogram 04/17/2020 Obstetrics History GPAL:G 2 P 2 0 0 1 Type Value Full Term 2 Living 1 Total 2 Immunizations Vaccine Type Date Status Note Provider Nam e and Address Organization Details Recorded Time SARS-COV-2 (COVID-19) vaccine, UNSPECIFIED 1 completed Not Available [facility] 06/11/2023 06:47:25 zoster recombinant 1 completed Not Available [facility] 06/11/2023 06:47:25 COVID-19, mRNA, LNP-S, PF, 100 mcg/0.5mL dose or 50 mcg/0.25mL dose 1 completed Not Available [facility] 06/11/2023 06:47:25 Influenza, split virus, quadrivalent, preservative 1 completed Not Available [facility] 06/11/2023 06:47:25 pneumococcal, unspecified formulation 1 completed Not Available [facility] 06/11/2023 06:47:25 COVID-19, mRNA, LNP-S, PF, 100 mcg/0.5mL dose or 50 mcg/0.25mL dose 1 completed Not Available [facility] 06/11/2023 06:47:25 Tdap 2 completed Misa Ruelas MA null, [place] - [facility] 08/22/2021 11:26:57 COVID-19, mRNA, LNP-S, PF, 100 mcg/0.5mL dose or 50 mcg/0.25mL dose 2 completed Paola Martin [place] null, [place] [facility] 09/23/2021 12:28:25 Influenza, split virus, quadrivalent, preservative 2 completed Edmond Carlin PA-C Attn: [address] [place], [address], [place] [facility] 03/13/2022 14:55:38 pneumococcal polysaccharide PPV23 2 completed Edmond Carlin PA-C Attn: [address] [place], [address], [place] [facility] 03/13/2022 14:55:38 Pneumococcal conjugate PCV20, polysaccharide [id number] conjugate, adjuvant, PF 2 completed Jeff Cook MD Attn: [address] [place], [address], [place] [facility] 04/30/2022 13:22:09 COVID-19, mRNA, LNP-S, bivalent, PF, 50 mcg/0.5 mL or 25mcg/0.25 mL dose 3 completed Dee Dee Briggs RN null, [place] - [facility] 06/11/2022 11:06:19 Pneumococcal conjugate PCV20, polysaccharide [id number] conjugate, adjuvant, PF 2 completed Yara Carr MA null, [facility] 07/07/2022 10:08:27 Influenza, high-dose, trivalent, PF 4 completed Yara Carr MA null, [facility] 02/26/2024 11:58:32 Past Encounters Encounter ID Performer Location Encounter Start Date Encounter Closed Date Diagnosis/Indication Diagnosis SNOMED-CT Code Diagnosis ICD10 Code Diagnosis Note [id number] [address] [phone] 05/10/2018 10:39:28 05/11/2018 09:08:59 Gynecologic examination 04331003 Z01.419 MMG up to date. If PAP normal, no further PAPs needed. [id number] S[facility]AKUMAR Riojas (Adult Med) [address] [place] [address] 16008-905 0 05/18/2019 11:36:31 05/18/2019 13:22:57 Essential hypertension 39810666 I10 Hyponatremia 91419115 E8 7.1 Hyperlipidemia 93196458 E78.5 [id number] [facility]UM[facility] Rio[facility] (Adult Med) [address] [place] [address] [id number] 0 06/23/2019 13:47:10 06/23/2019 15:24:48 Type 2 diabetes mellitus 38941836 E11.9 Low back pain 487931195 M54.5 Hyperlipidemia 26872412 E78.5 Essential hypertension 53954009 I10 Neuropathy 164811366 G62 .9 Insomnia 045360646 G47.0 0 Restless legs 89005569 G 25.81 Pain of ri ght shoulder joint 0735504277 1021110 M25.511 Under immunized 43809264 8 Z28.3 [id number] [facility] Rio[facility] (Adult Med) [address] [place] [address] 98059-940 0 08/24/2019 11:35:10 08/24/2019 11:59:38 Acute folliculitis 116097071 L73.9 right lower leg ..... 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 Recommend repeat TSH in 1 month. Advised pt follow up with PCP for further management . Menopausal syndrome 1237 11258 N95.9 Pt started on progestero ne and estradiol at discharge from hospital. Will obtain hospital records. Symptoms improved with treatment. Will continue as prescribed , no CI identified . Advised dressing in layers, keeping home cool, sleeping with fan, maintainin g healthy diet, limiting caffeine, alcohol, and spicy foods, and exercising regularly. RTC in 3 months to reassess. [id number] [facility]AKUM[facility] Riojas (Adult Med) [address] [place] [address] 46279-214 0 09/26/2019 09:54:16 09/26/2019 12:33:42 Low back pain 731198863 M54.5 Type 2 stephanie betes mellitus 74746303 E11.9 Restless legs 06245387 G 25.81 Essential hypertension 73076510 I10 Hyperlipidemia 70938375 E78.5 Insomnia 786109166 G47.0 0 Neuropathy 404176623 G62 .9 [id number] S[facility]AKUMAR Riojas (Adult Med) [address] [place] [address] [id number] 0 11/21/2019 08:07:15 11/21/2019 12:38:03 Essential hypertension 37528555 I10 Hyperlipidemia 27876973 E78.5 Insomnia 461874390 G47.0 0 Low back pain 797074904 M54.5 Neuropathy 822687997 G62 .9 Restless legs 55112245 G 25.81 Type 2 stephanie betes mellitus 81753597 E11.9 Irritable bowel syndrome with diarrhea 800627192 K58.0 [id number] S[facility]AKUMAR Riojas (Adult Med) [address] [place] [address] 91571-257 0 01/31/2020 09:04:03 02/03/2020 09:33:25 Essential hypertension 48084486 I10 Hyperlipidemia 03292290 E78.5 Insomnia 915588975 G47.0 0 Type 2 stephanie betes mellitus 08232930 E11.9 Restless legs 41368436 G 25.81 Neuropathy 891523308 G62 .9 Low back pain 038568156 M54.5 Migraine 31265492 G43.90 9 Allergic rhinitis 984507 04 J30.9 Allergic conjunctivitis 020279129 H10.13 [id number] S[facility]AKUMAR Riojas (Adult Med) [address] [place] [address] 97612-151 0 03/07/2020 08:23:45 03/07/2020 11:54:11 Type 2 diabetes mellitus 47273880 E11.9 Allergic rhinitis 713284 04 J30.9 Hypothyroidism 57533685 E03.9 Carpal servando mike syndrome 75212416 G56.03 Essential hypertension 96835455 I10 Hyperlipidemia 19407653 E78.5 Insomnia 556000823 G47.0 0 Irritable bowel syndrome with diarrhea 914891503 K58.0 Low back pain 478922829 M54.5 Neuropathy 834321666 G62 .9 Pain in right knee 09610 18318 02500 M25.561 Restless legs 82787710 G 25.81 [id number] EMMETT JOHNSON (VECTOR CONTROL ASSISTANT) [address] [place] [address] [id number] 0 03/15/2020 08:17:50 03/20/2020 11:13:50 Screening for malignant neoplasm of breast 893835524 Z12.31 Menopausal syndrome 1237 17789 N95.9 Pt started on progestero ne and estradiol about 6 months ago. Symptoms improved with treatment. Will continue as prescribed , no CI identified . Advised dressing in layers, keeping home cool, sleeping with fan, maintainin g healthy diet, limiting caffeine, alcohol, and spicy foods, and exercising regularly. Advised need to schedule mammogram and DEXA. RTC in 6 months. Screening for osteoporosis 123940402 Z13.155 [id number] S[facility]AKUMAR Riojas (Adult Med) [address] [place] [address] [id number] 0 04/09/2020 08:27:24 04/09/2020 12:33:10 Neuropathy 013758389 G62.9 Essential hypertension 02024402 I10 Hyperlipidemia 47347463 E78.5 Type 2 stephanie betes mellitus 84650982 E11.9 Hypothyroidism 94523852 E03.9 Allergic rhinitis 708813 04 J30.9 Insomnia 366514327 G47.0 0 Low back pain 006237942 M54.5 [id number] SIVAKUMAR Riojas (Adult Med) [address] [place] [address] [id number] 0 05/21/2020 08:42:50 05/21/2020 16:14:46 Hypothyroidism 71930480 E03.9 Hyponatremia 25261382 E8 7.1 Hyperlipidemia 95666212 E78.5 Neuropathy 143606238 G62 .9 Type 2 stephanie betes mellitus 11895576 E11.9 Depressive disorder 3548 9007 F32.9 Allergic rhinitis 279441 04 J30.9 Essential hypertension 96774358 I10 Insomnia 296217259 G47.0 0 Low back pain 975569830 M54.5 Restless legs 66253754 G 25.81 Pain in right knee 42967 10345 01353 M25.831 [id number] LACEY Zhou (Adult Med) [address] [place] [address] [phone] 0 05/29/2020 10:51:05 05/29/2020 11:26:16 Low back pain 964911797 M54.5 [id number] [facility]AKUM[facility] Riojas (Adult Med) [address] [place] [address] [id number] 0 06/25/2020 08:29:12 06/25/2020 11:56:11 Allergic rhinitis 63961838 J30.9 Depressive disorder 3548 9007 F32.9 Essential hypertension 78008305 I10 Hyperlipidemia 37882296 E78.5 Hypothyroidism 57862896 E03.9 Insomnia 596612216 G47.0 0 Low back pain 763886342 M54.5 Neuropathy 374309047 G62 .9 Type 2 stephanie betes mellitus 31130453 E11.9 Restless legs 71930642 G 25.81 [id number] S[facility]AKUMAR Riojas (Adult Med) [address] [place] [address] [id number] 0 07/24/2020 08:24:36 07/24/2020 14:02:50 Allergic rhinitis 18319566 J30.9 Essential hypertension 22444654 I10 Hyperlipidemia 79255574 E78.5 Hypothyroidism 76983316 E03.9 Insomnia 944716464 G47.0 0 Low back pain 093947722 M54.5 Neuropathy 332499461 G62 .9 Restless legs 15824071 G 25.81 Type 2 stephanie betes mellitus 07186127 E11.9 [id number] S[facility]AKUMAR Riojas (Adult Med) [address] [place] [address] 44187-992 0 08/09/2020 10:51:28 08/09/2020 12:10:31 Type 2 diabetes mellitus 80983741 E11.9 Restless legs 11697452 G 25.81 Neuropathy 294186986 G62 .9 Low back pain 741379220 M54.5 Hypothyroidism 22052407 E03.9 Hyperlipidemia 47254602 E78.5 Essential hypertension 54756009 I10 Depressive disorder 3548 9007 F32.9 Allergic rhinitis 995695 04 J30.9 Hyponatremia 10888852 E8 7.1 Carpal servando mike syndrome 71721611 G56.03 Pain of ri ght shoulder joint 1726324771 3747328 M25.511 Pain in right knee 17648 01879 71735 M25.899 [id number] SIVAKUMAR Riojas (Adult Med) [address] [place] [address] [id number] 0 09/13/2020 08:13:58 09/13/2020 11:58:52 Allergic rhinitis 10835906 J30.9 Depressive disorder 3548 9007 F32.9 Essential hypertension 16684024 I10 Hyperlipidemia 17948416 E78.5 Hypothyroidism 23381209 E03.9 Insomnia 291916248 G47.0 0 Low back pain 108944754 M54.5 Neuropathy 019062397 G62 .9 Restless legs 80058922 G 25.81 Type 2 stephanie betes mellitus 85146573 E11.9 Screening for osteoporosis 525491231 Z13.820 Under immunized 83766193 8 Z28.3 [id number] EMMETT JOHNSON (VECTOR CONTROL ASSISTANT) [address] [place] [address] [id number] 0 10/09/2020 07:50:23 10/12/2020 08:20:43 Menopausal syndrome 299022256 N95.9 Menopausal symptoms nearly resolved and many of pt's symptom concerns are due to her thyroid issues. Given pt's age and increased ASCVD risk (22.6%), discussed tapering off of HRT. She is agreeable. Will discontinu e progestero ne and decrease estradiol to 0.5mg daily. Last mammogram 04/17/20 BIRADS 0. RTC in 3 months to reassess. Candidal intertrigo 2661 78200 B37.2 Pt reports rash in leg folds and requests refill on antifungal s. Advised to keep area clean and dry. [id number] S[facility]AKUM[facility] Riojas (Adult Med) [address] [place] [address] [phone] 0 10/15/2020 09:33:27 10/15/2020 12:15:10 Allergic rhinitis 80981805 J30.9 Depressive disorder 3548 9007 F32.9 Essential hypertension 28756631 I10 Hyperlipidemia 99583170 E78.5 Hyponatremia 50269546 E8 7.1 Hypothyroidism 13602316 E03.9 Insomnia 991327471 G47.0 0 Low back pain 486173339 M54.5 Neuropathy 060751422 G62 .9 Restless legs 19971538 G 25.81 Type 2 stephanie betes mellitus 69039602 E11.9 Menopausal syndrome 1237 85483 N95.9 [id number] EMMETT JOHNSON (VECTOR CONTROL ASSISTANT) [address] [place] [address] 78921-628 0 10/30/2020 10:28:26 11/15/2020 11:03:56 Well woman monitoring status 419248548 Z76.89 -clinical breast examinatio n completed today, unremarkab le -cervical cancer screening UTD: last Pap 05/10/2018 , negative. No further screening indicated at this time. -mammogram completed 04/17/2020 BIRADS 0. -Educated osteoporos is prevention including calcium rich diet, weight bearing exercise. Will start supplement . Bone density previously ordered. Advised to call to schedule. -RTC in 1yr History of hysterectomy 393212080 Z90.711 ~30 years ago. Patient declined pelvic exam today. Cervical cancer risk low. Menopausal syndrome 1237 76154 N95.9 Menopausal symptoms nearly resolved and many of pt's symptom concerns are due to her thyroid issues. Given pt's age and increased ASCVD risk (22.6%), am tapering off of HRT. Previously discontinu ed progestero ne and decreased estradiol to 0.5mg daily. Will dc estradiol next month when script runs outs. [id number] S[facility]AKUMAR Riojas (Adult Med) [address] [place] [address] [id number] 0 11/27/2020 09:37:17 11/27/2020 11:09:10 Neuropathy 133119978 G62.9 Hypothyroidism 43274928 E03.9 Essential hypertension 31815250 I10 Hyperlipidemia 05498577 E78.5 Insomnia 979037437 G47.0 0 Low back pain 604500686 M54.5 Restless legs 55042480 G 25.81 Type 2 stephanie betes mellitus 72985496 E11.9 [id number] EMMETT JOHNSON (VECTOR CONTROL ASSISTANT) [address] [place] [address] [id number] 0 01/09/2021 10:05:13 01/29/2021 08:15:58 Menopausal syndrome 714236841 N95.9 Given pt's age and increased ASCVD risk (22.6%), pt was tapered off of estrogen replacemen t therapy. Will rx progestero ne only for frequent/s evere hot flashes. Advised pt keep rooms cool and sleep with fan. Dress in layers so that clothing can be removed when hot flash occurs and wear natural fabrics. Avoid foods that raise body temperatur e such as alcohol, caffeine, hot liquids, spicy foods. Eat smaller meals throughout the day. Smoking cessation. [id number] SIVAKUMAR Riojas (Adult Med) [address] [place] [address] 55659-658 0 01/29/2021 10:07:06 01/29/2021 13:04:50 Type 2 diabetes mellitus 05711559 E11.9 Neuropathy 040033738 G62 .9 Hyperlipidemia 24669778 E78.5 Essential hypertension 10256984 I10 Allergic rhinitis 928280 04 J30.9 Bronchitis 16616181 J40 Osteoarthritis 110312611 M19.90 Edema of l ower extremity 265492217 R60.0 Steatosis of liver 1007 K76.0 Hyponatremia 28678519 E8 7.1 Hypothyroidism 11353772 E03.9 Insomnia 435036123 G47.0 0 Low back pain 073748572 M54.5 Restless legs 12957375 G 25.81 [id number] SIVAKUMAR Riojas (Adult Med) [address] [place] [address] 69347-956 0 03/15/2021 10:21:15 03/15/2021 12:22:09 Low back pain 143082280 M54.51 Allergic rhinitis 983191 04 J30.9 Depressive disorder 3548 9007 F32.9 Essential hypertension 22961548 I10 Hyperlipidemia 59524902 E78.5 Hypothyroidism 86436647 E03.9 Insomnia 446235905 G47.0 0 Neuropathy 538539579 G62 .9 Bronchitis 64977774 J40 Steatosis of liver 1007 K76.0 Type 2 stephanie betes mellitus 00792823 E11.9 Restless legs 48555924 G 25.81 Pain in right knee 32403 53765 64076 M25.561 Pain of ri ght shoulder joint 5393056829 1064103 M25.505 [id number] S[facility]AKUMAR Riojas (Adult Med) [address] [place] [address] 56400-759 0 05/10/2021 09:26:21 05/10/2021 10:32:09 Allergic rhinitis 95543636 J30.9 Depressive disorder 3548 9007 F32.9 Essential hypertension 43891380 I10 Hyperlipidemia 43291562 E78.5 Hyponatremia 61702423 E8 7.1 Hypothyroidism 29379892 E03.9 Insomnia 924934724 G47.0 0 Low back pain 238983795 M54.51 Neuropathy 127873872 G62 .9 Osteoarthritis 178170775 M19.90 Restless legs 88454345 G 25.81 Steatosis of liver 1007 K76.0 Type 2 stephanie betes mellitus 20326531 E11.9 Irritable bowel syndrome with diarrhea 474349826 K58.0 Edema of l ower extremity 529204625 R60.0 Chest pain 98978350 R07. 9 Bronchitis 58017997 J40 [id number] EMMETT JOHNSON (VECTOR CONTROL ASSISTANT) [address] [place] [address] 77556-855 0 07/11/2021 12:20:57 07/24/2021 08:47:34 Menopausal flushing 252249748 N95.1 Given pt's age and increased ASCVD risk (22.6%), pt was tapered off of estrogen replacemen t therapy and continued on progestin only pills for frequent/s evere hot flashes. She hasn't noted a huge improvemen t in symptoms on norethindr one and has been having continued hot flashes. Discussed stopping hormones as the risks outweigh benefits at this point. Discussed following up with PCP to evaluate for other causes of persistent flushing. She is already on gabapentin , advised she can discuss increasing dose with PCP. Advised pt keep rooms cool and sleep with fan. Dress in layers so that clothing can be removed when hot flash occurs and wear natural fabrics. Avoid foods that raise body temperatur e such as alcohol, caffeine, hot liquids, spicy foods. Eat smaller meals throughout the day. Smoking cessation. RTC prn. [id number] SIVAKUMAR Riojas (Adult Med) [address] [place] [address] [phone] 0 08/22/2021 09:46:29 08/23/2021 08:03:24 Allergic rhinitis 79214760 J30.9 Cervical radiculopathy 98994449 M54.12 Depressive disorder 3548 9007 F32.9 Essential hypertension 01423780 I10 Hyperlipidemia 64108339 E78.5 Hyponatremia 31945585 E8 7.1 Hypothyroidism 21316063 E03.9 Insomnia 877782271 G47.0 0 Low back pain 932741690 M54.51 Neuropathy 826504531 G62 .9 Osteoarthritis 642705530 M19.90 Steatosis of liver 1007 K76.0 Type 2 stephanie betes mellitus 20944176 E11.9 Administra tion of tetanus vaccine 553077846 Z23 Sleep apnea 70788008 G47 .30 Carotid atherosclerosis 871925164 I65.29 Carpal servando mike syndrome 92048837 G56.03 HIV screening 833727925 Z11.4 Restless legs 45776007 G 25.81 [id number] [facility] (Adult Med) [address] [place] [address] [id number] 0 09/23/2021 10:33:39 09/24/2021 17:01:59 Cervical radiculopathy 78782247 M54.12 Dysuria 91419464 R30.9 Type 2 stephanie betes mellitus 05795635 E11.9 Sleep apnea 81445629 G47 .30 Restless legs 73652179 G 25.81 Neuropathy 123229420 G62 .9 Low back pain 004496550 M54.51 Insomnia 942960521 G47.0 0 Hypothyroidism 57936172 E03.9 Hyperlipidemia 59834359 E78.5 Essential hypertension 30838832 I10 Acute pharyngitis 362947 003 J02.9 Allergic rhinitis 247188 04 J30.9 Carotid atherosclerosis 886212258 I65.29 Depressive disorder 3548 9007 F32.9 Osteoarthritis 413788048 M19.90 [id number] [facility] (Peds) [address] [place] [address] [id number] 0 09/23/2021 11:36:33 09/23/2021 17:56:16 Administration of SARS-CoV-2 mRNA vaccine 9759278262 Z23 [id number] [facility] (VECTOR CONTROL ASSISTANT) [address] [place] [address] 16284[address]436 0 10/16/2021 11:57:39 10/30/2021 09:33:39 Dysuria 07582744 R30.9 On second round of abx per PCP. UA today wnl. PE with severe candidal infection, likely cause of symptoms. See below for management . Cystocele 164220258 N81. 10 PE with grade 3 cystocele. Discussed options with patient including pelvic floor PT, pessary, and surgery. Pt opts for pessary at this time. Fitted today and ordered. Pt to return to clinic when device in office for education and insertion. Will also refer to urogyn for further eval and management . Candidal vulvovaginitis 84360755 B37.3 Will start Diflucan and topical nystatin. Advised to keep area clean and dry, change panty liners often and avoid wearing when able. RTC if symptoms persist. [id number] SIVAKUMAR Riojas (Adult Med) [address] [place] [address]242[address] 0 10/25/2021 09:18:38 10/29/2021 09:56:57 Type 2 diabetes mellitus 85724635 E11.9 Neuropathy 291512204 G62 .9 Carotid atherosclerosis 020244650 I65.29 Allergic rhinitis 920842 04 J30.9 Cervical radiculopathy 97822372 M54.12 Disorder o f urinary bladder 90409033 N32.9 Essential hypertension 82284417 I10 Hyperlipidemia 71097677 E78.5 Hypothyroidism 48693514 E03.9 Insomnia 585648263 G47.0 0 Irritable bowel syndrome with diarrhea 272609103 K58.0 Low back pain 064714062 M54.51 Osteoarthritis 954912270 M19.90 Restless legs 19826843 G 25.81 Sleep apnea 35928952 G47 .30 [id number] EMMETT JOHNSON (VECTOR CONTROL ASSISTANT) [address] [place] [address] 96106[address]679 0 12/13/2021 12:19:12 12/24/2021 16:10:23 Cystocele 312973909 N81.10 Pt has grade 3 cystocele. Initially presenting for pessary placement but she has appointmen t with urogyn specialist next week and is deferring placement until then. Pessary provided to patient. RTC prn. [id number] EMMETT JOHNSON (VECTOR CONTROL ASSISTANT) [address] [place] [address] 65103[address]069 0 12/25/2021 11:08:16 12/30/2021 17:17:47 Pessary care 713017853 Z46.89 Pessary inserted in office today. Counseled pt on proper use and care. RTC in 1 month and prn. Cystocele 344749037 N81. 10 Pt has grade 3 cystocele. Advised that she reschedule d appointmen t with urogynecol ogist. Candidal intertrigo 2661 18338 B37.2 Rash noted in inguinal folds, refilled nystatin. Advised to keep area clean and dry. [id number] SIVAKUMAR Riojas (Adult Med) [address] [place] [address] 78915-990 0 01/10/2022 09:48:42 01/13/2022 15:02:58 Screening for malignant neoplasm of colon 377010159 Z12.11 Type 2 stephanie betes mellitus 50253800 E11.9 Restless legs 33378280 G 25.81 Osteoarthritis 089674101 M19.90 Carotid atherosclerosis 918820625 I65.29 Low back pain 197039163 M54.51 Allergic rhinitis 101487 04 J30.9 Cervical radiculopathy 68353545 M54.12 Essential hypertension 81693033 I10 Hyperlipidemia 47019804 E78.5 Hypothyroidism 41709912 E03.9 Insomnia 242869837 G47.0 0 Irritable bowel syndrome with diarrhea 714727398 K58.0 Neuropathy 212165237 G62 .9 [id number] SIVAKUMAR Riojas (Adult Med) [address] [place] [address] 69071-618 0 02/14/2022 09:27:37 02/17/2022 14:19:08 Neuropathy 993150275 G62.9 Osteoarthritis 826133449 M19.90 Type 2 stephanie betes mellitus 90777339 E11.9 Incontinence 21667213 R3 2 Allergic rhinitis 869850 04 J30.9 Carotid atherosclerosis 342257979 I65.29 Carpal servando mike syndrome 36951013 G56.03 Cervical radiculopathy 57413155 M54.12 Depressive disorder 3548 9007 F32.9 Essential hypertension 85243949 I10 Hyperlipidemia 02650722 E78.5 Hypothyroidism 39487164 E03.9 Insomnia 504214362 G47.0 0 Irritable bowel syndrome with diarrhea 906534968 K58.0 Low back pain 792929148 M54.51 Venous varices 125505324 I83.93 Steatosis of liver 32368 1007 K76.0 Sleep apnea 03487031 G47 .30 Restless legs 12617361 G 25.81 [id number] EMMETT JOHNSON (VECTOR CONTROL ASSISTANT) [address] [place] [address] 59600-571 0 02/26/2022 11:14:27 03/03/2022 16:05:07 Pessary care 096329937 Z46.89 Pessary inserted in office today. Counseled pt on proper use and care. RTC in 1 month and prn. Cystocele 685448316 N81. 10 Pt has grade 3 cystocele. Advised that she reschedule appointmen t with urogynecol ogist. Candidal intertrigo 2661 76242 B37.2 Rash noted in inguinal folds, refilled nystatin. Advised to keep area clean and dry. [id number] SIVAKUMAR Riojas (Adult Med) [address] [place] [address] 66367-802 0 03/12/2022 09:36:45 03/13/2022 11:08:19 Acute pharyngitis 084345826 J02.9 Allergic rhinitis 810416 04 J30.9 Bronchitis 32447102 J40 Carotid atherosclerosis 045305326 I65.29 Carpal servando mike syndrome 31569907 G56.03 Chest pain 60266057 R07. 9 Depressive disorder 3548 9007 F32.9 Diverticulitis 742073713 K57.92 Dysuria 76718021 R30.9 Edema of l ower extremity 651643737 R60.0 Essential hypertension 20098339 I10 Hyperlipidemia 16538166 E78.5 Incontinence 45385918 R3 2 Low back pain 224954195 M54.51 Migraine 19089368 G43.90 9 Osteoarthritis 694460645 M19.90 Pain of ri ght shoulder joint 7263055442 1878468 M25.511 Restless legs 32454860 G 25.81 Steatosis of liver 1007 K76.0 Type 2 stephanie betes mellitus 35482972 E11.9 Administra tion of influenza vaccine 73819070 Z23 Administra tion of pneumococcal vaccine 87783178 Z23 Nicotine dependence 5629 4008 Z87.308 [id number] MD Iram Hopson (Adult Med) [address] [place] [address] 93832-648 0 04/30/2022 10:30:56 05/02/2022 13:20:33 Smoker 76232571 F17.200 Advised her to quit smoking for thr good health and finav cial reasons. Environmental allergy 42 9515773 T78.49XA Will refill loratidine . Deficiency of vitamin D3 198251346 E55.9 wants to refill Vitamin D3. Administra tion of pneumococcal vaccine 39737740 Z23 She tolerated shot well. Screening for malignant neoplasm of colon 000102333 Z12.11 She agreed, for the referral. Administra tion of SARS-CoV-2 mRNA vaccine 4733229512 Z23 Will schedule. Well woman monitoring status 121651303 Z76.89 Will refill calcium. Type 2 stephanie betes mellitus 08978063 E11.65 Diabetic Diet, exercise and keep the weight down. has enough med for he type 2 DM. Aspirin pr ophylaxis declined 767798549 Z53.20 She refuses 04-30-2022 . Statin declined 89042099 0 Z53.20 She refuses 04-30-2022 . [id number] HALIMA Livingston (Peds) [address] [place] [address] 56154-534 0 06/11/2022 10:20:22 06/12/2022 13:25:09 Administration of SARS-CoV-2 mRNA vaccine 2368282763 Z23 [id number] MD Iram Hopson (Adult Med) [address] [place] [address] 31500-625 0 08/13/2022 09:58:06 08/14/2022 15:23:32 Female stress incontinence 41240687 N39.3 saw a urologist was told to block the vagina , she wants second opinion. Chronic ob structive pulmonary disease 57109306 J44.9 On oxygen and nebulizer with trellezy at home Smoker 36340411 F17.200 Advised her to quit smoking for thr good health and finav cial reasons. [id number] MD Iram Hopson (Adult Med) [address] [place] [address] 62800-313 0 01/19/2023 10:17:28 01/21/2023 15:01:03 Hernia of anterior abdominal wall 925240040 K43.9 Wants general surgeon referral, will order CT of abdomen to map out the extent of hernia. Onychomyco sis of toenails 154987629 B35.1 Will try anti fungal med . Peripheral vascular disease 101201836 I73.9 Will do the arterial doppler, Unsteady w hen standing 067468885 R26.81 Wants zoe for the scooter at [facility] is. Ordered. Smoker 22870260 F17.200 Advised her to quit smoking for thr good health and finacial reasons. She is aware of cigarettes smoking can cause permanet emphysema, cancer of lung or throat , , or mouth and other diseases. Type 2 stephanie betes mellitus 41152023 E11.65 Diabetic Diet, exercise and keep the weight down. has enough med for he type 2 DM. on metformin. and aspirin. Diabetic p eripheral neuropathy 981391518 E11.40 On gabapentin . Dyslipidem ia due to type 2 diabetes mellitus 8412207531 02 E78.5 Low animal fat diet, fish oil, omega-3 acid ethyl adina . Colon [facility] [place] er screening declined 6181415400 9109 Z53.20 She declined 34340-93. Statin declined 29390604 0 Z53.20 She refuses 04-30-2022 . Also today 01-19-23. [id number] MD Iram Wall (Adult Med) [address] [place] [address] 09/16/2023 14:26:10 09/17/2023 16:20:58 Normal weight 54686174 Z68.20 Abnormal reflex 01577100 R29.2 Increased biceps reflex on left. Symptoms consistent with cervical myelopathy . Proceed with cervical MRI. Will also get neurology referral. Will get home health to do PT at home. Patient has been unable to ambulate for some time. Very unsteady and worried about falls. Tramadol prn pain. Discussed risks of Tramadol and addiction and respirator y depression . Patient is aware and will use sparingly. Has been taking this medication for some time. Cannot take NSAID and had sucidal thoughts with Cymbalta. Limited on options for pain. Does not want to see pain management . Type 2 stephanie betes mellitus 16155821 E11.9 Essential hypertension 22088643 I10 Will return for fasting blood work. Blood pressure controlled . Continue present medication . Environmental allergy 42 3370572 T78.49XA Hypothyroidism 37039810 E03.9 Neuropathy 080933539 G62 .9 Well woman monitoring status 515721797 Z76.89 Peripheral vascular disease 805454225 I73.9 Sees specialist . Trying to quit smoking. Started cholestero l medication . Nicotine user 182022050 Z72.0 Trying to quit. Unable to tolerate patches. [id number] MD Iram Wall (Adult Med) [facility] [place] [address] 11/24/2023 14:27:16 11/30/2023 14:20:42 Body mass index less than 20 330073762 Z68.1 Psoriasis 3563750 L40.9 Psoriasis on elbows. Advised patient to use Clobetasol BID to affected area for no more than two weeks in a row. Then keep area moisturize d. Can use steroid cream periodical ly as needed. Should never use steroid cream on face or genital area. Urinary incontinence 165 467687 R32 Has had surgery and tried multiple medication s for incontinen ce. Would like to discuss self catheteriz ation to avoid frequent accidents. Will refer to Urology. Essential hypertension 07456545 I10 Has not been taking HCTZ. Blood pressure low in office but has been higher at home. Lower when needs more fluids. Will remain off HCTZ. Pain in toe 340192734 M7 9.675 Had injury to left toe. Now has discolorat ion under toenail and at edge of toenail. I think she may have had bleeding under the nail when she had the injury, but due to the fungal disease in the nail, I cannot see clear and obvious blood under the nail. I do see a dark purple color at the edge of the nail. I think this is related to bleeding under the nail, but the patient and I discussed that we cannot rule out this being related to vascular disease. She will watch this carefully. If it is due to trauma and bleeding under the nail bed I expect continued resolution . I advised her to seek immediate medical attention if the discolorat ion becomes worse or spreads, or if she develops increased pain. I will look at it again in three weeks. She is alsobeing referred to Podiatry. Hypertriglyceridemia 302 742111 E78.1 She takes fish oil daily. Menopause 083063611 Z78. 0 Take Calcium Citrate and Vitamin D daily. Carotid atherosclerosis 015587603 I65.29 Neuropathy 814186467 G62 .9 Hypothyroidism 63005892 E03.9 Environmental allergy 42 3677108 T78.49XA Type 2 stephanie betes mellitus 07162336 E11.9 Continue Metformin. Will order more strips so she can do fasting acu checks. Will be seeing Ophthalmol ogist this week. May need to increase her Metformin or add a diabetic medicine, which we will discuss further at follow up visit. Restless legs 54330300 G 25.81 Peripheral vascular disease 468705110 I73.9 Sees specialist . Trying to quit smoking. Started cholestero l medication . Spinal bee nosis in cervical region 18866355 M48.02 Has referral to neurosurge on. [id number] Mali Rashid MD [facility] [address] [place] [address] 11/26/2023 14:48:56 12/01/2023 07:56:23 Nonexudative age-related macular degeneration 495259213 H35.3191 Type 2 stephanie betes mellitus without complication 610320839 E11.9 After-annelise ract not obscuring vision following extraction of cataract 39934375 H26.507 [id number] Hank Martinez MD [facility] (Adult Med) [address] [place] [address] 12/09/2023 10:13:47 12/10/2023 12:47:21 Body mass index 20-24 - normal 845711431 Z68.23 Skin finding 408507012 R 23.9 Concerned about the possibilit y of necrosis due to her history of PAD and diabetes. She is following up with Podiatry today for further evaluation . I am surprised it has not gotten worse and does not seem to bother her in any way. I am also surprised at how perfectly it follows the edge of the nail. I told her the hospital medical biller may need to remove the nail. I asked her to let me know what the hospital medical biller says. Has a follow up appointmen t with me. Nicotine user 127185723 Z72.0 Encouraged her to continue to work on quitting. Has been unable to tolerate patches. Vitamin D deficiency 347 41796 E55.9 Would like to go back to the higher dose of vitamin D. I will research if there are any concerns about that high of a dose. [id number] Nestor Smith MD [facility] [address] [place] [address] 12/16/2023 09:43:56 12/16/2023 15:13:53 Urinary incontinence 525487024 R32 [id number] Jamal Mendez MD [facility] [address] [place] [address] 01/25/2024 10:24:15 01/25/2024 12:22:30 Chronic obstructive pulmonary disease 35223992 J44.9 Will add trelegy ellipta, one puff daily and Albuterol HFA as needed. I will check PFTs, 6MWT, CBC, IgE, Nicotine dependence 5629 4008 F17.200 40 PYH , counseled to quit 5 min, will check LDCT Multiple n odules of lung 169495132 R91.8 LDCT Obstructiv e sleep apnea syndrome 40469150 G47.33 ON trilogy at night Allergic rhinitis 825149 04 J30.9 will add Singulair History of malignant neoplasm of uterine body 580718809 Z85.42 in 7555 [id number] Hank Martinez MD [facility] (Adult Med) [address] [place] [address] 02/26/2024 10:21:21 03/01/2024 11:03:08 Cervical myelopathy 341848856 G95.9 Patient is wheelchair bound. Has limited strength in extremitie s. Experienci ng limited dexterity in upper extremitie s. Would like to explore treatment options. Type 2 stephanie betes mellitus 88069698 E11.9 Hemoglobin A1C slightly improved from 8.2 to 7.9. Goal is 7.0. Will see if she would increase the Metformin by one pill a day and continue acu checks. Urinary incontinence 165 810678 R32 Urologist mentioned suprapubic catheter which she would like to pursue. Was referred to a specialist who said he won't do it. I will reach out to the urologist to see if we have other options. Chest wall pain 79094386 6 R07.89 Chest wall pain after fall. Get xray to check for rib fracture. Administra tion of influenza vaccine 81768238 Z23 Hypothyroidism 74153031 E03.9 Last TSH in October normal. Peripheral vascular disease 750003526 I73.9 Encouraged her to quit smoking. Taking high dose statin and aspirin. Tinea pedis 2408135 B35. 3 Sees hospital medical biller . [id number] [facility] [address] [place] [address] 03/30/2024 09:45:41 03/30/2024 12:37:19 Mixed urinary incontinence 459172154 N39.46 Status post suprapubic tube placement. Visiting nurse to change the catheter 4 weeks. [id number] Nestor Smith MD [facility] [address] [place] [address] 04/15/2024 16:33:38 04/19/2024 09:18:23 Suprapubic pain 147439398 R10.[address] [id number] [facility] [address] [place] [address] 04/18/2024 10:22:00 04/18/2024 14:15:54 Chronic obstructive pulmonary disease 45169121 J44.9 Will add trelegy ellipta( she's scared of it ) I will switch to Stiolto, one puff daily and Albuterol HFA as needed. PFTs showed moderate COPD and emphysema ( 2013), Nicotine dependence 5629 4008 F17.200 40 PYH , counseled to quit 5 min Multiple n odules of lung 402372639 R91.8 LDCT- 03/24, showed no suspicious nodules Obstructiv e sleep apnea syndrome 35109290 G47.33 ON trilogy at night Allergic rhinitis 178252 04 J30.9 will continue Singulair and Flonase, IgE and CBC WNL History of malignant neoplasm of uterine body 318435596 Z85.42 in 9739 [id number] Nestor Smith MD [facility] [address] [place] [address] 06/17/2024 11:08:00 06/17/2024 12:44:37 Urinary tract infectious disease 43635798 N39.0 Return to office 6 weeks after follow-up at [facility] Health Concerns Section Related Observation LastModified by Organization Detai ls LastModified Time None Recorded Concern Status LastModified by Organization Details LastModified Time None Recorded Advance Directives Directive N: Payers Encounter Date Sequence Insurance Name Policy Number Policy Munoz Covered Member ID Munoz Member ID Guarantor Name 02/26/2024 2 [place] WHEN MEDICARE OR MEDICARE REPLACEMENT PRIMARY) May Myers [id number] May Myers 02/26/2024 1 [facility] (MEDICARE REPLACEMENT/AD VANTAGE - HMO) [id number] May Danielsro [id number] May Myers 03/30/2024 1 [facility] (MEDICARE REPLACEMENT/AD VANTAGE - PPO) [id number] May Danielsro [id number] May Myers 03/30/2024 2 [place] May Myers [id number] May Myers 04/15/2024 1 [facility] (MEDICARE REPLACEMENT/AD VANTAGE - PPO) [id number] May Danielsro [id number] May Myers 04/15/2024 2 [place] May Myers [id number] May Myers 04/18/2024 1 [facility] (MEDICARE REPLACEMENT/AD VANTAGE - PPO) [id number] May Danielsro [id number] May Myers 04/18/2024 2 [place] May Myers [id number] May Myers 06/17/2024 2 [place] May Myers [id number] May Myers 06/17/2024 1 [place] May Myers [id number] May Myers Notes Date Note Type Note Provider Name and Address Organization Details Recorded Time 02/26/2024 text/html follow up, I filled amlodipine, she prefers the ordering provider fills it, scheduled to go back to [facility], did prolapse repair, still wet all the time, saw urologist who said it made sent for her to get a catheter but he said he does not do that surgery, sent her to [facility], Dr. Jose C Ackerman at [facility] wants her to have urodynamics test again but he said he won't do the surgery unless she is in the hospital for another reason, can't keep good skin health, would still like 50,000 D3, neurologist says has arthritis, glucose yesterday morning 107, other mornings 120, difficulty taking sugar tests, has a hard time manuvering little things with hands, saw had a prescription for HCTZ but never took it, fell out of chair a few weeks ago and since then has had tender left lateral rib cage, tender left lateral rib cage, may have a skin lesion on the side of her nose, would like me to check pulses in feet, no new sores on feet Hank Martinez MD Attn: Accounting [facility], [place], [address], [place] [facility] 02/26/2024 14:03:41 03/30/2024 text/html Had suprapubic tube placed at [facility]. Scant blood around insertion site now. Will have visiting nurse change SPT every month. Note minimal leakage noted when catheter is kinked. Nestor Smith MD [address], [place], [address], [place] [facility] 05/17/2024 15:19:30 04/15/2024 text/html Has suprapubic tube placement in [facility]. Told of non functioning bladder. Has problems with insurance. Has an appointment for follow-up over in [place]. Significant pain from the diversion. Does not want to go to the emergency room. Travel arrangements 72 hours in advance. Nestor Smith MD [address], [place], [address], [place] [facility] 04/27/2024 10:14:30 04/18/2024 text/html Patient is here for follow up. She is scared from trelegy ellipta. Jamal Mendez MD [address], [place], [address], [facility] 04/18/2024 10:51:00 06/17/2024 text/html has a appointmen t scheduled for next Thursday at [facility]. has not been able to get a visiting nurse scheduled. Has numerous emergency room visits to drain catheters and replace as needed. Fluid collected around bladder has been resolved. May need to set up monthly visit for cath change if needed. Nestor Smith MD [address], [place], [address], [facility] 06/17/2024 11:44:48 OBGyn Episode No OBEpisode recorded.
== END 2024-11-02 23:59 | disposition home or self-care (01) ==
LOC: ANHVASCINF 10:31
PROVIDERS: PCP Emergency Medicine
DX: N39.0 Urinary tract infection, site not specified (principal)
CPT/HCPCS: 36415; 36591; 80053; 82550; 85027; 86140; 99211; G0463

== ENCOUNTER 2024-08-23 10:43 | Outpatient (CLI) | payer MEDICARE, MEDICAID, SELFPAY ==
--- NOTE | ~2024-08-23 | XR_ITS ---
XR chest 2V 08/23/2024 11:47 Indication: Edema of the lower extremities Procedure: 2 view chest Comparison: No prior studies for comparison. Findings: Cardiomegaly. Prominent pericardial fat pads. Basilar atelectasis. No focal pneumonia, josé a, significant effusion or pneumothorax. There are advanced degenerative changes of the glenohumeral joints. Impression: 1: Bibasilar atelectasis. 2: Cardiomegaly. Reviewed, dictated and finalized at location A. Impression: 1: Bibasilar atelectasis. 2: Cardiomegaly.
[2024-08-23 12:13] LABS: NT Pro B Type Natriuretic Pept 1920 pg/mL (19.9-100)
--- OUTSIDE RECORDS SUMMARY | 2024-08-23 12:43 | XMS_ITS | Patient Health Record ---
Author Organization [facility] Address [address] [place], [place] [id number] Care Team Providers Care Cement Crusher Operator Name Role Phone CASSANDRAPOP HORTENSIA Unavailable [phone] Kaye Martinez Unavailable Unavailable Allergies Allergen (clinical [...] [facility] [address] [place], [place] [id number] 12/10/2023 HORTENSIA VILLALOBOS Fungal infection of nail B35.1 ; Contusion of left great toe without damage to nail, initial encounter S90.112A ; Unspecified atherosclerosis of tunica[place]bilox[place] arteries of extremities, bilateral legs I70.203 and Pain in left toe(s) M79.675 [facility] [address] [place], [place] [id number] 03/03/2024 HORTENSIA VILLALOBOS Fungal infection of nail B35.1 ; Pain in left toe(s) M79.675 ; Pain in right toe(s) M79.674 ; Unspecified atherosclerosis of [place] arteries of extremities, bilateral legs I70.203 and [...] (ICD-10 - M79.674) 12/10/2023 Unspecified atherosclerosis of tun[place] arteries of extremities, bilateral legs (ICD-10 - I70.203) 12/10/2023 Pain in left toe(s) (ICD-10 - M79.675) 03/03/2024 Unspecified atherosclerosis of tunica[place]bil[place]i arteries of extremities, bilateral legs (ICD-10 - I70.203) 03/03/2024 Contusion of left great toe without damage to nail, subsequent encounter (ICD-10 - S90.112D) Plan Of Treatment No Information Insurance Providers Payer Name Payer Address Payer Phone Subscriber Number Group Number Insured Name Patient Relationship to Insured Coverage Start Date Coverage End Date [facility] [address] [address] [place] [address] [id number] TORITORITIKA MONROY Self - patient is the insured Medical (General) History Medical History History ICD Code fibromyalgia neuropathy Pneumonia Cancer (type of cancer) Leg/Feet cramps Arthritis Bladder infections Sleep apnea Thyroid Disease Back Trouble Diabetic hypertension peripheral vascular disease restless leg syndrome Surgical History Surgery Date(Month/Year) Hysterectomy appendectomy Wrist Surgery Gall Bladder Cataract extration Left leg
--- OUTSIDE RECORDS SUMMARY | 2024-08-23 12:44 | XMS_ITS | Data Portability ---
Author Organization [facility] Address [address] [place] [address] Care Team Providers Care Site Damage Prevention Technician Name Role Phone MARNIE YU Vendor Management Consultant [phone] HANK MARTINEZ Primary Care Provider Assessment No assessment recorded. Plan of Treatment Reminders Order Date Submit Date Provider Last Modified By Organization Details Last Modified Time Details Appointments ANY 10 2024 10:30A M Jamal Mendez MD Not available Not available Not available ANY 15 2024 10:30A M Hank Martinez MD Not available Not available Not available Lab CMP, serum or plasma 2024 025 [facility], [address] [place] [address], [facility] [address], [place], [address], 08/19/2024 06:20:26 urinaly sis complet e, reflex culture 2024 025 [facility], [address] [place] [address], [facility] [address], [place], [address], 08/19/2024 06:20:28 Referral None recorde d. Procedures None recorde d. Surgeries None recorde d. Imaging LDCT, chest, for lung cancer screeni ng 2023 025 [facility] ([facility]), [address] [place], [address], 06/03/2024 16:41:35 Medication Orders Stiolto Respima t 2.5 mcg-2.5 mcg/act uation solutio n for inhalat ion 2023 024 [id number], [address], [place], [place], [id number], 04/18/2024 10:51:04 Patient TargetsNo targets recorded. Patient Instructions Encounter Date Encounter Id Patient Instructions Last Modified By Organization Details Last Modified Time 03/30/2024 [id number] bladder training : care instructions Not available 03/30/2024 10:18:53 kegel exercises: care instructions Not available 03/30/2024 10:18:53 Stress Incontinence: Care Instructions Not available 03/30/2024 10:18:53 Urge Incontinence: Care Instructions Not available 03/30/2024 10:18:53 04/18/2024 [id number] Quitting Tobacco : Care Instructions ajamous Not available 04/18/2024 10:50:54 allergies: care instructions ajamous Not available 04/18/2024 10:50:54 sleep apnea: car e instructions ajamous Not available 04/18/2024 10:50:54 chronic obstructive pulmonary disease (COPD): care instructions ajamous Not available 04/18/2024 10:50:54 learning about copd and how to prevent lung infections ajamous Not available 04/18/2024 10:50:54 06/17/2024 [id number] Urinary Tract Infection (UTI) in Women: Care Instructions Not available 06/17/2024 11:43:45 Reason for Referral None Reported. Results Created Date Observation Date Name Description Value Unit Range Abnormal Flag Note LastModifiedBy Organization Detail LastModifiedTime 04/20/2004/20/2024 Urina lysis panel - Urine by Auto color of urine by auto Brown text: yellow , straw abnormal Color UA Brown (A) Alex w Straw 04/20 7:38 PM [facility] Not Available Not Available 07/14/2024 03:21:23 04/20/20 24 04/20/2024 Urina lysis panel - Urine by Auto clarity in urine by refractometr y automated Turbid text: clear abnormal Joaquina ty UA Turbi d (A) Clear 04/20 7:38 PM [facility] Not Available Not Available 07/14/2024 03:21:23 04/20/20 24 04/20/2024 Urina lysis panel - Urine by Auto glucose [presence] in urine by test strip Normal text: normal Gluco se UA Mable l Mable l 04/20 7:38 PM [facility] Not Available Not Available 07/14/2024 03:21:23 04/20/20 24 04/20/2024 Urina lysis panel - Urine by Auto bilirubin.to aida [presence] in urine by test strip Negati ve text: negati ve Bilir ubin UA Negat linwood Negat linwood 04/20 7:38 PM [facility] Not Available Not Available 07/14/2024 03:21:23 04/20/20 24 04/20/2024 Urina lysis panel - Urine by Auto ketones [presence] in urine by automated test strip Negati ve text: negati ve Keton e UA Negat linwood Negat linwood 04/20 7:38 PM [facility] Not Available Not Available 07/14/2024 03:21:23 04/20/20 24 04/20/2024 Urina lysis panel - Urine by Auto specific gravity of urine by test strip 1.016 low: 1.005h igh: 1.03 Speci fic Gravi ty UA 1.016 1.005 - 1.030 04/20 7:38 PM [facility] Not Available Not Available 07/14/2024 03:21:23 04/20/20 24 04/20/2024 Urina lysis panel - Urine by Auto hemoglobin [presence] in urine by test strip 1+ text: negati ve abnormal Blood UA 1+ (A) Negat linwood 04/20 7:38 PM [facility] Not Available Not Available 07/14/2024 03:21:23 04/20/20 24 04/20/2024 Urina lysis panel - Urine by Auto pH of urine by test strip 6 pH low: 5pHhig h: 9pH pH UA 6.0 5.0 - 9.0 pH 04/20 7:38 PM [facility] Not Available Not Available 07/14/2024 03:21:23 04/20/20 24 04/20/2024 Urina lysis panel - Urine by Auto protein [presence] in urine by test strip 2+ text: negati ve abnormal Prote in UA 2+ (A) Negat linwood 04/20 7:38 PM [facility] Not Available Not Available 07/14/2024 03:21:23 04/20/20 24 04/20/2024 Urina lysis panel - Urine by Auto urobilinogen [mass/volume ] in urine by automated test strip 2 mg/dL text: normal abnormal Urobi linog en UA 2.0 (A) Mable l mg/dL 04/20 7:38 PM [facility] Not Available Not Available 07/14/2024 03:21:23 04/20/20 24 04/20/2024 Urina lysis panel - Urine by Auto nitrite [presence] in urine by test strip Positi ve text: negati ve abnormal Nitri te UA Posit linwood (A) Negat linwood 04/20 7:38 PM [facility] Not Available Not Available 07/14/2024 03:21:23 04/20/20 24 04/20/2024 Urina lysis panel - Urine by Auto leukocyte esterase [presence] in urine by test strip 500 JUAN/uL text: negati ve abnormal Leuko cyte UA 500 JUAN/u L (A) Negat linwood 04/20 7:38 PM [facility] Not Available Not Available 07/14/2024 03:21:23 04/20/20 24 04/20/2024 Urina lysis panel - Urine by Auto erythrocytes [#/area] in urine sediment by automated count >100 text: 0 - 5 # /hpf abnormal RBC UA >100 (A) 0 - 5 # /hpf 04/20 7:38 PM [facility] Not Available Not Available 07/14/2024 03:21:23 04/20/20 24 04/20/2024 Urina lysis panel - Urine by Auto leukocytes [#/area] in urine sediment by automated count >100 text: 0 - 5 # /hpf abnormal WBC UA >100 (A) 0 - 5 # /hpf 04/20 7:38 PM [facility] Not Available Not Available 07/14/2024 03:21:23 04/20/20 24 04/20/2024 Urina lysis panel - Urine by Auto bacteria [presence] in urine by automated Trace text: none seen abnormal Bacte tara UA Trace (A) None Seen 04/20 7:38 PM [facility] Not Available Not Available 07/14/2024 03:21:23 04/20/20 24 04/20/2024 Urina lysis panel - Urine by Auto epithelial cells.squamo us [presence] in urine by automated 0-2 text: 0 - 5 /hpf Squam ous Epith elial Cells 0-2 0 - 5 /hpf 04/20 7:38 PM [facility] Not Available Not Available 07/14/2024 03:21:23 04/20/20 24 04/20/2024 Urina lysis panel - Urine by Auto mucus [presence] in urine by automated 1+ text: /lpf Mucus UA 1+ /LPF 04/20 7:38 PM [facility] Not Available Not Available [...] ABO Rh A POS 04/20 4:56 PM [facility] [employer] [facility] Not Available Not Available 07/14/2024 03:21:23 04/20/20 24 04/20/2024 Blood type and Indir ect antib lian scree n panel - Blood blood group antibody screen [presence] in serum or plasma NEG Antib lian Scree n NEG 04/20 4:56 PM [facility] [employer] Not Available Not Available 07/14/2024 03:21:23 04/20/20 24 04/20/2024 INR in Plate let poor plasm a by Coagu latio n assay prothrombin time (PT) 13.1 text: 12.1 - 14.8 sec PT 13.1 12.1 - 14.8 sec 04/20 4:29 PM [facility] [employer] Not Available Not Available 07/14/2024 03:21:23 04/20/20 24 04/20/2024 INR in Plate let poor plasm a by Coagu latio n assay INR in platelet poor plasma by coagulation assay 1 low: 0.9hig h: 1.1 INR 1.0 0.9 - 1.1 04/20 4:29 PM [facility] [employer] Not Available Not Available [...] For Fluid s mg/dL 05/06 1:54 PM [facility]ILD [facility] Not Available Not Available 07/14/2024 03:21:24 05/06/20 24 05/06/2024 Creat inine [Mass /volu me] in Body fluid [type] of body fluid Other Fluid Type Other 05/06 1:54 PM [facility] [employer] [facility] Not Available Not Available 07/14/2024 03:21:24 05/06/20 24 05/06/2024 Creat inine [Mass /volu me] in Body fluid specimen source [identifier] of body fluid subQ fluid collec tion Other Fluid Sourc e: subQ fluid colle ction 05/06 1:54 PM [facility] [employer] [facility] Not Available Not Available 07/14/2024 03:21:24 05/06/20 24 05/06/2024 Creat inine [Mass /volu me] in Body fluid Unknown Analyte The rosi bess has not establ ished the refere nce interv al and analyt ic perfor latricia for this body fluid test. The test result must be integr ated into the clinic al contex t for interp retati on. Body fluid source not valida jose angel, interp ret result s with cautio n. The labor rcow has not estab lishe d the refer [...] No growt h SHIMA 05/08 5:56 PM [facility] [employer] [facility] Not Available Not Available 07/14/2024 03:21:23 05/06/20 24 05/08/2024 Bacte tara ident ified in Wound by Cultu re microscopic observation [identifier] in specimen by gram stain Modera te Red blood cells Gram Stain Moder ate Red blood cells 05/08 5:56 PM [facility] [employer] Not Available Not Available 07/14/2024 03:21:23 05/06/20 24 05/08/2024 Bacte tara ident ified in Wound by Cultu re microscopic observation [identifier] in specimen by gram stain Rare Polymo rphonu clear cells Gram Stain Rare Polym orpho nucle ar cells 05/08 5:56 PM [facility] [employer] Not Available Not Available 07/14/2024 03:21:23 05/06/20 24 05/08/2024 Bacte tara ident ified in Wound by Cultu re microscopic observation [identifier] in specimen by gram stain No organi sms seen Gram Stain No organ isms seen 05/08 5:56 PM [facility] [employer] Not [...] 1+ Not Available Not Available 07/14/2024 03:21:24 12/17/20 24 05/17/2024 Urina lysis panel - Urine [...] (ESBL ) (A) SHIMA 05/24 12:29 AM [facility] [employer] Not [...] Straw , Yello w 05/21 2:15 PM [facility] Not Available Not Available 07/27/2024 14:29:04 05/21/20 24 05/21/2024 Urina lysis panel - Urine by Auto clarity UA Cloudy text: clear abnormal Joaquina ty UA Mcdowell y (A) Clear 05/21 2:15 PM [facility] [facility] AIDA Not Available Not Available 07/27/2024 14:29:04 05/21/20 24 05/21/2024 Urina lysis panel - Urine by Auto specific gravity UA 1.025 low: 1.005h igh: 1.03 Speci fic Gravi ty UA 1.025 1.005 - 1.030 05/21 2:15 PM [facility] AIDA Not Available Not Available 07/27/2024 14:29:04 05/21/20 24 05/21/2024 Urina lysis panel - Urine by Auto pH UA 7 pH low: 5pHhig h: 8pH pH UA 7.0 5.0 - 8.0 pH 05/21 2:15 PM [facility]IDA Not Available Not Available 07/27/2024 14:29:04 05/21/20 24 05/21/2024 Urina lysis panel - Urine by Auto protein UA 2+ text: negati ve abnormal Prote in UA 2+ (A) Negat linwood 05/21 2:15 PM [facility] Not Available Not Available 07/27/2024 14:29:04 05/21/20 24 05/21/2024 Urina lysis panel - Urine by Auto glucose UA Negati ve text: negati ve Gluco se UA Negat linwood Negat linwood 05/21 2:15 PM [facility]IDA Not Available Not Available 07/27/2024 14:29:04 05/21/20 24 05/21/2024 Urina lysis panel - Urine by Auto ketone UA 1+ text: negati ve abnormal Keton e UA 1+ (A) Negat linwood 05/21 2:15 PM [facility] Not Available Not Available 07/27/2024 14:29:04 05/21/20 24 05/21/2024 Urina lysis panel - Urine by Auto bilirubin UA Negati ve text: negati ve Bilir ubin UA Negat linwood Negat linwood 05/21 2:15 PM [facility] Not Available Not Available 07/27/2024 14:29:04 05/21/20 24 05/21/2024 Urina lysis panel - Urine by Auto blood UA Trace text: negati ve abnormal Blood UA Trace (A) Negat linwood 05/21 2:15 PM [facility]IDA Not Available Not Available 07/27/2024 14:29:04 05/21/20 24 05/21/2024 Urina lysis panel - Urine by Auto nitrite UA Positi ve text: negati ve abnormal Nitri te UA Posit linwood (A) Negat linwood 05/21 2:15 PM [facility] Not Available Not Available 07/27/2024 14:29:04 05/21/20 24 05/21/2024 Urina lysis panel - Urine by Auto leukocyte esterase 3+ text: negati ve abnormal Leuko cyte Adina ase 3+ (A) Negat linwood 05/21 2:15 PM [facility] Not Available Not Available 07/27/2024 14:29:04 05/21/20 24 05/21/2024 Urina lysis panel - Urine by Auto urobilinogen UA Negati ve text: negati ve mg/dL Urobi linog en UA Negat linwood Negat linwood mg/dL 05/21 2:15 PM [facility] Not Available Not Available 07/27/2024 14:29:04 05/21/20 24 05/21/2024 Urina lysis panel - Urine by Auto comment UA Micros copic to follow . Comme nt UA Micro scopi c to timo w. 05/21 2:15 PM [facility] ADIA Not Available Not Available 07/27/2024 14:29:04 05/21/20 24 05/21/2024 Urina lysis panel - Urine by Auto interpretati on and review of laboratory results Abnorm al Not Available Not Available 14:29:04 05/21/20 24 05/21/2024 Urina lysis compl ete W Refle x Cultu re panel - Urine reflex status Cultur e to follow Refle x Statu s Cultu re to follo w 05/21 2:14 PM [facility] Not Available Not Available 07/14/2024 03:21:23 05/21/20 24 05/21/2024 Urina lysis compl ete W Refle x Cultu re panel - Urine RBC UA 11-20 text: none seen, 0-2, 3-5 /hpf abnormal RBC UA 11-20 (A) None Seen, 0-2, 3-5 /HPF 05/21 2:14 PM [facility] Not Available Not Available 07/14/2024 03:21:23 05/21/20 24 05/21/2024 Urina lysis compl ete W Refle x Cultu re panel - Urine WBC UA >100 text: none seen, 0-5 /hpf abnormal WBC UA >100 (A) None Seen, 0-5 /HPF 05/21 2:14 PM [facility] Not Available Not Available 07/14/2024 03:21:23 05/21/20 24 05/21/2024 Urina lysis compl ete W Refle x Cultu re panel - Urine bacteria UA 3+ text: none /hpf abnormal Bacte tara UA 3+ (A) None /HPF 05/21 2:14 PM [facility] Not Available Not Available 07/14/2024 03:21:23 05/21/20 24 05/21/2024 Urina lysis compl ete W Refle x Cultu re panel - Urine squamous epithelial cells UA 0-2 text: none seen, 0-2, 3-5 /hpf Squam ous Epith elial Cells UA 0-2 None Seen, 0-2, 3-5 /HPF 05/21 2:14 PM [facility] Not Available Not Available 07/14/2024 03:21:23 05/21/20 24 05/21/2024 Urina lysis compl ete W Refle x Cultu re panel - Urine mucus UA 1+ text: /lpf Mucus UA 1+ /LPF 05/21 2:14 PM [facility]IDA Not Available Not Available 07/14/2024 03:21:23 05/21/20 24 05/21/2024 Urina lysis compl ete W Refle x Cultu re panel - Urine calcium oxalate UA Occasi onal text: none /hpf abnormal Calci um Oxala te UA Occas ional (A) None /HPF 05/21 2:14 PM [facility] AIDA Not Available [...] 1.9 <=2.0 mmol/ L 05/21 1:41 PM [facility]IDA Not Available [...] h day 5 SHIMA 05/26 4:32 PM [facility] Not [...] 7 - 26 mg/dL 05/21 1:45 PM [facility]IDA Not Available Not Available 07/27/2024 14:29:04 05/21/20 24 05/21/2024 Compr ehens [place] metab olic 1999 panel - Serum or Plasm a creatinine [mass/volume ] in serum or plasma 0.59 mg/dL low: 0.56mg /dLhig h: 0.96mg /dL Creat inine 0.59 0.56 - 0.96 mg/dL 05/21 1:45 PM [facility] AIDA Not Available Not Available 07/27/2024 14:29:04 05/21/20 24 05/21/2024 Compr ehens [place] metab olic 1999 panel - Serum or Plasm a sodium [moles/volum e] in serum or plasma 135 mmol/ L low: 136mmo l/Lhig h: 145mmo l/L low Sodiu m 135 (L) 136 - 145 mmol/ L 05/21 1:45 PM [facility] AIDA Not Available Not Available 07/27/2024 14:29:04 05/21/20 24 05/21/2024 Compr ehens [place] metab olic 1999 panel - Serum or Plasm a potassium [moles/volum e] in serum or plasma 4.1 mmol/ L low: 3.5mmo l/Lhig h: 4.5mmo l/L Potas sium 4.1 3.5 - 4.5 mmol/ L 05/21 1:45 PM [facility]IDA Not Available Not Available 07/27/2024 14:29:04 05/21/20 24 05/21/2024 Compr e[facility] [place] metab olic 1999 panel - Serum or Plasm a chloride [moles/volum e] in serum or plasma 99 mmol/ L low: 98mmol /Lhigh : 107mmo l/L Chlor austin 99 98 - 107 mmol/ L 05/21 1:45 PM [facility]IDA Not Available Not Available 07/27/2024 14:29:04 05/21/20 24 05/21/2024 Compr ehens [place] metab olic 1999 panel - Serum or Plasm a carbon dioxide, total [moles/volum e] in serum or plasma 27 mmol/ L low: 22mmol /Lhigh : 29mmol /L CO2 27 22 - 29 mmol/ L 05/21 1:45 PM [facility]IDA Not Available Not Available 07/27/2024 14:29:04 05/21/20 24 05/21/2024 Compr ehens [place] metab olic 1999 panel - Serum or Plasm a glucose [mass/volume ] in serum or plasma 131 mg/dL low: 70mg/d Lhigh: 99mg/d L high Gluco se 131 (H) 70 - 99 mg/dL 05/21 1:45 PM [facility] Not Available Not Available 07/27/2024 14:29:04 05/21/20 24 05/21/2024 Compr ehens [place] metab olic 2000 panel - Serum or Plasm a calcium [moles/volum e] in serum or plasma 9.9 mg/dL low: 8.4mg/ dLhigh : 10.2mg /dL Calci um 9.9 8.4 - 10.2 mg/dL 05/21 1:45 PM [facility] AIDA Not Available Not Available 07/27/2024 14:29:04 05/21/20 24 05/21/2024 Compr ehens [place] metab olic 2000 panel - Serum or Plasm a protein [mass/volume ] in serum or plasma 7.3 g/dL low: 6g/dLh igh: 8.3g/d L Prote in Total 7.3 6.0 - 8.3 g/dL 05/21 1:45 PM [facility]IDA Not Available Not Available 07/27/2024 14:29:04 05/21/20 24 05/21/2024 Compr [place] [facility] 1999 panel - Serum or Plasm a albumin [mass/volume ] in serum or plasma by bromocresol green (bcg) dye binding method 4.3 g/dL low: 3.4g/d Lhigh: 5g/dL Album in 4.3 3.4 - 5.0 g/dL 05/21 1:45 PM [facility] AIDA Not Available Not Available 07/27/2024 14:29:04 05/21/20 24 05/21/2024 Compr [place] [facility] 1999 panel - Serum or Plasm a bilirubin.to aida [mass/volume ] in serum or plasma 0.3 mg/dL low: 0.2mg/ dLhigh : 1.2mg/ dL Bilir ubin Total 0.3 0.2 - 1.2 mg/dL 05/21 1:45 PM [facility]IDA Not Available Not Available 07/27/2024 14:29:04 05/21/20 24 05/21/2024 Compr [place] [facility] [facility] 1999 panel - Serum or Plasm a alkaline phosphatase [enzymatic activity/vol ume] in serum or plasma 57 U/L low: 40U/Lh igh: 150U/L Alkal ine Phosp hatas e 57 40 - 150 U/L 05/21 1:45 PM [facility] AIDA Not Available Not Available 07/27/2024 14:29:04 05/21/20 24 05/21/2024 Compr ens [place] metab olic 1999 panel - Serum or Plasm a alanine aminotransfe rase [enzymatic activity/vol ume] in serum or plasma by no addition of P-5'-P 24 U/L low: 5U/Lhi gh: 55U/L ALT 24 5 - 55 U/L 05/21 1:45 PM [facility] AIDA Not Available Not Available 07/27/2024 14:29:04 05/21/20 24 05/21/2024 Compr ehens [place] metab olic 2000 panel - Serum or Plasm a aspartate aminotransfe rase [enzymatic activity/vol ume] in serum or plasma 23 U/L low: 5U/Lhi gh: 34U/L AST 23 5 - 34 U/L 05/21 1:45 PM [facility] AIDA Not Available Not Available 07/27/2024 14:29:04 05/21/20 24 05/21/2024 Compr [facility] [place] metab olic 1999 panel - Serum or Plasm a anion gap 9 low: 6high: 16 Anion Gap 9 6 - 16 05/21 1:45 PM [facility] AIDA Not Available Not Available 07/27/2024 14:29:04 05/21/20 24 05/21/2024 Compr [facility] [place] metab olic 2000 panel - Serum or Plasm a urea nitrogen/cre atinine [mass ratio] in serum or plasma 25 low: 7high: 23 high BUN/C reati nine Ratio 25 (H) 7 - 23 05/21 1:45 PM [facility]IDA Not Available Not Available 07/27/2024 14:29:04 05/21/20 24 05/21/2024 Compr [facility] [place] metab olic 2000 panel - Serum or Plasm a osmolality calculated 283 text: 275 - 295 mOsm/k g Osmol ality Calcu lated 283 275 - 295 mOsm/ kg 05/21 1:45 PM [facility] AIDA Not Available Not Available 07/27/2024 14:29:04 05/21/20 24 05/21/2024 Compr [facility] [place] metab olic 2000 panel - Serum or Plasm a albumin/glob ulin ratio 1.4 low: 1.1hig h: 2.3 Album in/Gl obuli n Ratio 1.4 1.1 - 2.3 05/21 1:45 PM [facility] Not Available Not Available 07/27/2024 14:29:04 05/21/20 24 05/21/2024 Compr e[place] metab olic 2000 panel - Serum or Plasm a glomerular filtration rate/1.73 sq M.predicted [volume rate/area] in serum, plasma or blood by creatinine-b ased formula (CKD-epi 2020) text: >=90 mL/min /1.73 m2 eGFR by CKD-E PI >90 >=90 mL/mi n/1.7 3 m2 05/21 1:45 PM [facility] A[facility] Not Available Not [...] - 10.7 x10E9 /L 05/21 1:21 PM [facility] Not Available Not Available 07/27/2024 14:29:04 05/21/20 24 05/21/2024 CBC W Auto Diffe renti al panel - Blood erythrocytes [#/volume] in blood by automated count 4.11 text: 3.90 - 5.20 x10e12 /L RBC Count 4.11 3.90 - 5.20 x10E1 2/L 05/21 1:21 PM [facility] Not Available Not Available 07/27/2024 14:29:04 05/21/20 24 05/21/2024 CBC W Auto Diffe renti al panel - Blood hemoglobin [mass/volume ] in blood 13.4 g/dL low: 11.9g/ dLhigh : 15.8g/ dL Hemog lobin 13.4 11.9 - 15.8 g/dL 05/21 1:21 PM [facility] Not Available Not Available 07/27/2024 14:29:04 05/21/20 24 05/21/2024 CBC W Auto Diffe renti al panel - Blood hematocrit [volume fraction] of blood by automated count 38.8 % low: 34.8%h igh: 46.1% Hemat ocrit 38.8 34.8 - 46.1 % 05/21 1:21 PM [facility] Not Available Not Available 07/27/2024 14:29:04 05/21/20 24 05/21/2024 CBC W Auto Diffe renti al panel - Blood MCV [entitic volume] by automated count 94.4 fL low: 80fLhi gh: 98fL MCV 94.4 80.0 - 98.0 fL 05/21 1:21 PM [facility]IDA Not Available Not Available 07/27/2024 14:29:04 05/21/20 24 05/21/2024 CBC W Auto Diffe renti al panel - Blood MCH [entitic mass] by automated count 32.6 pg low: 26.7pg high: 33.6pg MCH 32.6 26.7 - 33.6 pg 05/21 1:21 PM [employer] [facility]IDA Not Available Not Available 07/27/2024 14:29:04 05/21/20 24 05/21/2024 CBC W Auto Diffe ryanneti al panel - Blood MCHC [mass/volume ] by automated count 34.5 g/dL low: 31.7g/ dLhigh : 36.3g/ dL MCHC 34.5 31.7 - 36.3 g/dL 05/21 1:21 PM [employer] AIDA Not Available Not Available 07/27/2024 14:29:04 05/21/20 24 05/21/2024 CBC W Auto Diffe renti al panel - Blood erythrocyte distribution width [ratio] by automated count 11.9 % low: 11.3%h igh: 14.8% RDW-C V 11.9 11.3 - 14.8 % 05/21 1:21 PM [facility] [facility] Not Available Not Available 07/27/2024 14:29:04 05/21/20 24 05/21/2024 CBC W Auto Diffe renti al panel - Blood platelets [#/volume] in blood by automated count 233 text: 150 - 420 x10e9/ L Plate let Count 233 150 - 420 x10E9 /L 05/21 1:21 PM [facility] [facility] Not Available Not Available 07/27/2024 14:29:04 05/21/20 24 05/21/2024 CBC W Auto Diffe renti al panel - Blood platelet mean volume [entitic volume] in blood by automated count 8.7 fL low: 7.8fLh igh: 11.4fL MPV 8.7 7.8 - 11.4 fL 05/21 1:21 PM [facility] Not Available Not Available 07/27/2024 14:29:04 05/21/20 24 05/21/2024 CBC W Auto Diffe dipesh al panel - Blood neutrophils/ 100 leukocytes in blood by automated count 57.4 % low: 41%hig h: 74% Neutr ophil % 57.4 41.0 - 74.0 % 05/21 1:21 PM [facility] [facility] Not Available Not Available 07/27/2024 14:29:04 05/21/20 24 05/21/2024 CBC W Auto Diffe dipesh al panel - Blood lymphocytes/ 100 leukocytes in blood by automated count 29.2 % low: 17%hig h: 47% Lymph ocyte % 29.2 17.0 - 47.0 % 05/21 1:21 PM [facility] Not Available Not Available 07/27/2024 14:29:04 05/21/20 24 05/21/2024 CBC W Auto Diffe renti al panel - Blood monocytes/10 0 leukocytes in blood by automated count 9 % low: 3%high : 11% Monoc yte % 9.0 3.0 - 11.0 % 05/21 1:21 PM [facility] Not Available Not Available 07/27/2024 14:29:04 05/21/20 24 05/21/2024 CBC W Auto Diffe renti al panel - Blood eosinophils/ 100 leukocytes in blood by automated count 4 % low: 0%high : 7% Eosin ophil % 4.0 0.0 - 7.0 % 05/21 1:21 PM [facility] [employer] A[facility] Not Available Not Available 07/27/2024 14:29:04 05/21/20 24 05/21/2024 CBC W Auto Diffe renti al panel - Blood basophils/10 0 leukocytes in blood by automated count 0.2 % low: 0%high : 1.6% Basop hil % 0.2 0.0 - 1.6 % 05/21 1:21 PM [facility] [employer] Not Available Not Available 07/27/2024 14:29:04 05/21/20 24 05/21/2024 CBC W Auto Diffe renti al panel - Blood immature granulocytes /100 leukocytes in blood by automated count 0.2 % low: 0%high : 1% Immat ure Granu locyt es % 0.2 0.0 - 1.0 % 05/21 1:21 PM [facility] Not Available Not Available 07/27/2024 14:29:04 05/21/20 24 05/21/2024 CBC W Auto Diffe renti al panel - Blood neutrophils [#/volume] in blood by automated count 3.01 text: 1.60 - 7.50 x10e9/ L Neutr ophil Absol [place] 3.01 1.60 - 7.50 x10E9 /L 05/21 1:21 PM [facility] Not Available Not Available 07/27/2024 14:29:04 05/21/20 24 05/21/2024 CBC W Auto Diffe renti al panel - Blood lymphocytes [#/volume] in blood by automated count 1.53 text: 1.00 - 4.40 x10e9/ L Lymph ocyte Absol pai[place]-shoshone 1.53 1.00 - 4.40 x10E9 /L 05/21 1:21 PM [facility] Not Available Not Available 07/27/2024 14:29:04 05/21/20 24 05/21/2024 CBC W Auto Diffe renti al panel - Blood monocytes [#/volume] in blood by automated count 0.47 text: 0.15 - 1.00 x10e9/ L Monoc yte Absol pai[place]-shoshone 0.47 0.15 - 1.00 x10E9 /L 05/21 1:21 PM [facility] Not Available Not Available 07/27/2024 14:29:04 05/21/20 24 05/21/2024 CBC W Auto Diffe renti al panel - Blood eosinophils [#/volume] in blood 0.21 text: 0.00 - 0.60 x10e9/ L Eosin ophil Absol pai[place] 0.21 0.00 - 0.60 x10E9 /L 05/21 1:21 PM [facility] Not Available Not Available 07/27/2024 14:29:04 05/21/20 24 05/21/2024 CBC W Auto Diffe renti al panel - Blood basophils [#/volume] in blood by automated count 0.01 text: 0.00 - 0.13 x10e9/ L Basop hil Absol [place] 0.01 0.00 - 0.13 x10E9 /L 05/21 1:21 PM [facility] A[facility] Not Available Not [...] h day 5 SHIMA 05/26 4:32 PM [employer] [employer] GY Not [...] 70 - 99 mg/dL 05/22 8:51 PM [employer] [employer] [facility] AIDA Not Available Not Available 07/27/2024 14:29:05 05/22/20 24 05/22/2024 Gluco se [Mass /volu me] in Arter ial blood specimen source identified Cap Finger stick Speci men Type Cap Finge rstic k 05/22 8:51 PM [facility] [employer] [facility] AIDA Not Available Not [...] 70 - 99 mg/dL 05/22 8:51 PM [facility] [employer] AT[facility] AIDA Not Available Not Available 07/27/2024 14:29:04 05/22/20 24 05/22/2024 Gluco se [Mass /volu me] in Arter ial blood specimen source identified Arteri al Speci men Type Arter ial 05/22 8:51 PM [facility] [employer] [facility] AIDA Not Available Not Available [...] 70 - 99 mg/dL 05/22 12:29 PM [facility] Not Available Not Available 07/27/2024 14:29:04 05/22/20 24 05/22/2024 Gluco se [Mass /volu me] in Arter ial blood specimen source identified Arteri al Speci men Type Arter ial 05/22 12:29 PM [facility] Not Available Not [...] 70 - 99 mg/dL 05/22 8:40 AM [facility] Not Available Not Available 07/27/2024 14:29:04 05/22/20 24 05/22/2024 Gluco se [Mass /volu me] in Arter ial blood specimen source identified Arteri al Speci men Type Arter ial 05/22 8:40 AM [facility] Not Available Not [...] 70 - 99 mg/dL 05/23 5:54 PM [facility] Not Available Not Available 07/27/2024 14:29:05 05/23/20 24 05/23/2024 Gluco se [Mass /volu me] in Arter ial blood specimen source identified Cap Finger stick Speci men Type Cap Finge rstic k 05/23 5:54 PM [facility] Not Available Not [...] 70 - 99 mg/dL 05/23 11:48 AM [facility] Not Available Not Available 07/27/2024 14:29:05 05/23/20 24 05/23/2024 Gluco se [Mass /volu me] in Arter ial blood specimen source identified Cap Finger stick Speci men Type Cap Finge rstic k 05/23 11:48 AM [facility] Not Available Not Available 07/27/2024 14:29:05 05/23/20 24 05/23/2024 Gluco se [Mass /volu me] in Arter ial blood interpretati on and review of laboratory results Abnorm al Not Available Not Available 14:29:05 05/23/20 24 06/20/2024 Fungu s ident ified in [place] te by Cultu re microorganis m identified in specimen by culture No fungus isolat ed Cultu re No fungu s isola jose angel SHIMA 06/20 6:40 AM [employer] [employer] GY Not Available Not Available 07/14/2024 03:21:24 05/23/20 24 06/20/2024 Fungu s ident ified in [place] te by Cultu re fungus identified in specimen by fungus stain No yeast or hyphae seen Fungu s Stain No yeast or hypha e seen 06/20 6:40 AM [employer] [facility] Not Available Not Available 07/14/2024 03:21:24 05/23/20 24 06/20/2024 Fungu s ident ified in [place] te by Cultu re interpretati on and review of laboratory results Normal Not Available Not Available 07/02 03:21:24 05/23/20 24 06/12/2024 Refer ral lab test panel test name CRBF Test Name CRBF 06/12 11:09 AM [facility] [employer] [facility] REF LAB NON INTER F Not Available Not Available 07/14/2024 03:21:23 05/23/20 24 06/12/2024 Refer ral lab test panel test result See Anton cottrell Report Test Resul t See Noah ed Repor t 06/12 11:09 AM [facility] [employer] [facility] REF LAB NON INTER F Not Available Not Available 07/14/2024 03:21:23 05/23/20 24 06/12/2024 Refer ral lab test panel comment ref lab [facility] nt Ref Lab [place] 06/12 11:09 AM [facility] REF LAB NON INTER F Not Available Not Available 07/14/2024 03:21:23 05/23/20 24 05/27/2024 Bacte tara ident ified in Body fluid by Cultu re microorganis m identified in specimen by culture Light Staphy lococc us epider midis critical abnormal Cultu re Light Staph yloco ccus epide rmidi s (AA) SHIMA 05/27 12:01 PM [employer] [facility] Not Available Not Available 07/14/2024 03:21:23 05/23/20 24 05/27/2024 Bacte tara ident ified in Body fluid by Cultu re microorganis m identified in specimen by culture Light Staphy lococc us lugdun ensis critical abnormal Cultu re Light Staph yloco ccus lugdu nensi s (AA) SHIMA 05/27 12:01 PM [employer] [facility] Not Available Not Available 07/14/2024 03:21:23 05/23/20 24 05/27/2024 Bacte tara ident ified in Body fluid by Cultu re microscopic observation [identifier] in specimen by gram stain Light Polymo rphonu clear cells Gram Stain Light Polym orpho nucle ar cells 05/27 12:01 PM [employer] Not Available Not Available 07/14/2024 03:21:23 05/23/20 24 05/27/2024 Bacte tara ident ified in Body fluid by Cultu re microscopic observation [identifier] in specimen by gram stain No organi sms seen Gram Stain No organ isms seen 05/27 12:01 PM [employer] Not [...] susan isola jose angel 07/04 8:25 AM [employer] Not Available Not Available 07/14/2024 03:21:23 05/23/20 24 07/04/2024 Mycob acter ium sp ident ified in Speci men by Organ ism speci fic cultu re microscopic observation [presence] in specimen by acid fast stain No acid-f ast bacill i seen AFB Smear No acid- fast bacil li seen 07/04 8:25 AM [employer] Not Available Not Available 07/14/2024 03:21:23 05/23/20 24 07/04/2024 Mycob acter ium sp ident ified in Speci men by Organ ism speci fic cultu re interpretati on and review of laboratory results Normal Not Available Not Available 07/02 03:21:23 05/23/20 24 05/29/2024 Bacte tara ident ified in [place] te by Anaer obe cultu re microorganis m identified in specimen by culture No anaero bic organi sms isolat ed Cultu re No anaer obic organ isms isola jose angel SHIMA 05/29 8:29 AM [employer] Not Available Not Available 07/14/2024 03:21:23 05/23/20 24 05/29/2024 Bacte tara ident ified in [place] te by Anaer obe cultu re interpretati on and review of laboratory results Normal Not Available Not Available 07/02 03:21:23 05/23/20 24 05/23/2024 Gluco se [Mass /volu me] in Arter ial blood glucose [mass/volume ] in capillary blood by glucometer 126 mg/dL low: 70mg/d Lhigh: 99mg/d L high Gluco se WB/PO C 126 (H) 70 - 99 mg/dL 05/23 9:43 AM [facility] Not Available Not Available 07/27/2024 14:29:05 05/23/20 24 05/23/2024 Gluco se [Mass /volu me] in Arter ial blood specimen source identified Cap Finger stick Speci men Type Cap Finge rstic k 05/23 9:43 AM [facility] A[facility] Not Available Not [...] WBC 5.7 4.0 - 10.7 x10E9 /L 05/23 1:27 AM [employer] [facility] ATORY [facility] AIDA Not Available Not Available 07/27/2024 14:29:05 05/23/20 24 05/23/2024 CBC panel - Blood by Autom ated count erythrocytes [#/volume] in blood by automated count 4.06 text: 3.90 - 5.20 x10e12 /L RBC Count 4.06 3.90 - 5.20 x10E1 2/L 05/23 1:27 AM [facility] [employer] ATORY [facility] AIDA Not Available Not Available 07/27/2024 14:29:05 05/23/20 24 05/23/2024 CBC panel - Blood by Autom ated count hemoglobin [mass/volume ] in blood 13.3 g/dL low: 11.9g/ dLhigh : 15.8g/ dL Hemog lobin 13.3 11.9 - 15.8 g/dL 05/23 1:27 AM [facility] Not Available Not Available 07/27/2024 14:29:05 05/23/20 24 05/23/2024 CBC panel - Blood by Autom ated count hematocrit [volume fraction] of blood by automated count 39.3 % low: 34.8%h igh: 46.1% Hemat ocrit 39.3 34.8 - 46.1 % 05/23 1:27 AM [facility] ATOR [facility]OS[facility] AIDA Not Available Not Available 07/27/2024 14:29:05 05/23/20 24 05/23/2024 CBC panel - Blood by Autom ated count MCV [entitic volume] by automated count 96.8 fL low: 80fLhi gh: 98fL MCV 96.8 80.0 - 98.0 fL 05/23 1:27 AM [facility] HOSPI AIDA Not Available Not Available 07/27/2024 14:29:05 05/23/20 24 05/23/2024 CBC panel - Blood by Autom ated count MCH [entitic mass] by automated count 32.8 pg low: 26.7pg high: 33.6pg MCH 32.8 26.7 - 33.6 pg 05/23 1:27 AM [facility] AT[facility]OS[facility] AIDA Not Available Not Available 07/27/2024 14:29:05 05/23/20 24 05/23/2024 CBC panel - Blood by Autom ated count MCHC [mass/volume ] by automated count 33.8 g/dL low: 31.7g/ dLhigh : 36.3g/ dL MCHC 33.8 31.7 - 36.3 g/dL 05/23 1:27 AM [facility] [employer] ATORY [facility] AIDA Not Available Not Available 07/27/2024 14:29:05 05/23/20 24 05/23/2024 CBC panel - Blood by Autom ated count erythrocyte distribution width [ratio] by automated count 11.9 % low: 11.3%h igh: 14.8% RDW-C V 11.9 11.3 - 14.8 % 05/23 1:27 AM [facility] [employer] AT[facility] AIDA Not Available Not Available 07/27/2024 14:29:05 05/23/20 24 05/23/2024 CBC panel - Blood by Autom ated count platelets [#/volume] in blood by automated count 240 text: 150 - 420 x10e9/ L Plate let Count 240 150 - 420 x10E9 /L 05/23 1:27 AM [facility] [employer] AT[facility] AIDA Not Available Not Available 07/27/2024 14:29:05 05/23/20 24 05/23/2024 CBC panel - Blood by Autom ated count platelet mean volume [entitic volume] in blood by automated count 8.8 fL low: 7.8fLh igh: 11.4fL MPV 8.8 7.8 - 11.4 fL 05/23 1:27 AM [facility] [employer] AT[facility] AIDA Not Available Not Available [...] 7 - 26 mg/dL 05/23 1:44 AM [facility] [employer] AT[facility] AIDA Not Available Not Available 07/27/2024 14:29:05 05/23/20 24 05/23/2024 Renal funct ion 2000 panel - Serum or Plasm a creatinine [mass/volume ] in serum or plasma 0.6 mg/dL low: 0.56mg /dLhig h: 0.96mg /dL Creat inine 0.60 0.56 - 0.96 mg/dL 05/23 1:44 AM [employer] ATORY [facility]OS[facility] AIDA Not Available Not Available 07/27/2024 14:29:05 05/23/20 24 05/23/2024 Renal funct ion 1999 panel - Serum or Plasm a sodium [moles/volum e] in serum or plasma 137 mmol/ L low: 136mmo l/Lhig h: 145mmo l/L Sodiu m 137 136 - 145 mmol/ L 05/23 1:44 AM [employer] ATORY [facility] AIDA Not Available Not Available 07/27/2024 14:29:05 05/23/20 24 05/23/2024 Renal funct ion 1999 panel - Serum or Plasm a potassium [moles/volum e] in serum or plasma 4.5 mmol/ L low: 3.5mmo l/Lhig h: 4.5mmo l/L Potas sium 4.5 3.5 - 4.5 mmol/ L 05/23 1:44 AM [employer] ATORY [facility] AIDA Not Available Not Available 07/27/2024 14:29:05 05/23/20 24 05/23/2024 Renal funct ion 1999 panel - Serum or Plasm a chloride [moles/volum e] in serum or plasma 104 mmol/ L low: 98mmol /Lhigh : 107mmo l/L Chlor [place] 104 98 - 107 mmol/ L 05/23 1:44 AM [employer] ATORY [facility] AIDA Not Available Not Available 07/27/2024 14:29:05 05/23/20 24 05/23/2024 Renal funct ion 1999 panel - Serum or Plasm a carbon dioxide, total [moles/volum e] in serum or plasma 27 mmol/ L low: 22mmol /Lhigh : 29mmol /L CO2 27 22 - 29 mmol/ L 05/23 1:44 AM [employer] ATORY [facility] AIDA Not Available Not Available 07/27/2024 14:29:05 05/23/20 24 05/23/2024 Renal funct ion 1999 panel - Serum or Plasm a glucose [mass/volume ] in serum or plasma 159 mg/dL low: 70mg/d Lhigh: 99mg/d L high Gluco se 159 (H) 70 - 99 mg/dL 05/23 1:44 AM [employer] ATORY [facility] AIDA Not Available Not Available 07/27/2024 14:29:05 05/23/20 24 05/23/2024 Renal funct ion 1999 panel - Serum or Plasm a albumin [mass/volume ] in serum or plasma by bromocresol green (bcg) dye binding method 4.1 g/dL low: 3.4g/d Lhigh: 5g/dL Album in 4.1 3.4 - 5.0 g/dL 05/23 1:44 AM [employer] ATORY [facility] AIDA Not Available Not Available 07/27/2024 14:29:05 05/23/20 24 05/23/2024 Renal funct ion 1999 panel - Serum or Plasm a calcium [moles/volum e] in serum or plasma 9.2 mg/dL low: 8.4mg/ dLhigh : 10.2mg /dL Calci um 9.2 8.4 - 10.2 mg/dL 05/23 1:44 AM [employer] ATORY [facility] AIDA Not Available Not Available 07/27/2024 14:29:05 05/23/20 24 05/23/2024 Renal funct ion 1999 panel - Serum or Plasm a phosphate [mass/volume ] in serum or plasma 2.7 mg/dL low: 2.9mg/ dLhigh : 5.1mg/ dL low Phosp horus 2.7 (L) 2.9 - 5.1 mg/dL 05/23 1:44 AM [employer] ATORY [facility]OS[facility] AIDA Not Available Not Available 07/27/2024 14:29:05 05/23/20 24 05/23/2024 Renal funct ion 1999 panel - Serum or Plasm a anion gap 6 low: 6high: 16 Anion Gap 6 6 - 16 05/23 1:44 AM [employer] ATORY [facility] AIDA Not Available Not Available 07/27/2024 14:29:05 05/23/20 24 05/23/2024 Renal funct ion 2000 panel - Serum or Plasm a urea nitrogen/cre atinine [mass ratio] in serum or plasma 22 low: 7high: 23 BUN/C reati nine Ratio 22 7 - 23 05/23 1:44 AM [employer] ATORY [facility] AIDA Not Available Not Available 07/27/2024 14:29:05 05/23/20 24 05/23/2024 Renal funct ion 2000 panel - Serum or Plasm a osmolality calculated 287 text: 275 - 295 mOsm/k g Osmol ality Calcu lated 287 275 - 295 mOsm/ kg 05/23 1:44 AM [employer] ATORY [facility] AIDA Not Available Not Available 07/27/2024 14:29:05 05/23/20 24 05/23/2024 Renal funct ion 2000 panel - Serum or Plasm a glomerular filtration rate/1.73 sq M.predicted [volume rate/area] in serum, plasma or blood by creatinine-b ased formula (CKD-epi 2020) text: >=90 mL/min /1.73 m2 eGFR by CKD-E PI >90 >=90 mL/mi n/1.7 3 m2 05/23 1:44 AM [employer] ATORY HOSPI AIDA Not Available Not Available [...] 1.6 - 2.6 mg/dL 05/23 1:44 AM [employer] ATORY [facility]OS[facility] AIDA Not Available Not Available [...] 70 - 99 mg/dL 05/24 9:26 PM [facility] AT[facility]OS[facility] AIDA Not Available Not Available 07/27/2024 14:29:06 05/24/20 24 05/24/2024 Gluco se [Mass /volu me] in Arter ial blood specimen source identified Cap Finger stick Speci men Type Cap Finge rstic k 05/24 9:26 PM [facility] AT[facility]OS[facility] AIDA Not Available Not [...] 70 - 99 mg/dL 05/24 8:21 PM [facility] [facility] AIDA Not Available Not Available 07/27/2024 14:29:06 05/24/20 24 05/24/2024 Gluco se [Mass /volu me] in Arter ial blood specimen source identified Cap Finger stick Speci men Type Cap Finge rstic k 05/24 8:21 PM [facility] AT[facility]OS[facility] AIDA Not Available Not [...] 70 - 99 mg/dL 05/24 1:02 PM [facility] [employer] ATORY HOSPI AIDA Not Available Not Available 07/27/2024 14:29:06 05/24/20 24 05/24/2024 Gluco se [Mass /volu me] in Arter ial blood specimen source identified Cap Finger stick Speci men Type Cap Finge rstic k 05/24 1:02 PM [facility] [employer] ATORY HOSPI AIDA Not Available Not Available 07/27/2024 14:29:06 05/24/20 24 05/24/2024 Gluco se [Mass /volu me] in Arter ial blood interpretati on and review of laboratory results Abnorm al Not Available Not Available 14:29:06 05/24/2005/24/2024 CBC panel - Blood by Autom ated count leukocytes [#/volume] in blood by automated count 6 text: 4.0 - 10.7 x10e9/ L WBC 6.0 4.0 - 10.7 x10E9 /L 05/24 11:21 AM [facility] [employer] ATORY HOSPI AIDA Not Available Not Available 07/27/2024 14:29:06 05/24/20 24 05/24/2024 CBC panel - Blood by Autom ated count erythrocytes [#/volume] in blood by automated count 4.2 text: 3.90 - 5.20 x10e12 /L RBC Count 4.20 3.90 - 5.20 x10E1 2/L 05/24 11:21 AM [facility] [employer] ATORY HOSPI AIDA Not Available Not Available 07/27/2024 14:29:06 05/24/20 24 05/24/2024 CBC panel - Blood by Autom ated count hemoglobin [mass/volume ] in blood 13.8 g/dL low: 11.9g/ dLhigh : 15.8g/ dL Hemog lobin 13.8 11.9 - 15.8 g/dL 05/24 11:21 AM [facility] ATORY HOSPI AIDA Not Available Not Available 07/27/2024 14:29:06 05/24/2005/24/2024 CBC panel - Blood by Autom ated count hematocrit [volume fraction] of blood by automated count 40.2 % low: 34.8%h igh: 46.1% Hemat ocrit 40.2 34.8 - 46.1 % 05/24 11:21 AM [facility] Not Available Not Available 07/27/2024 14:29:06 05/24/2005/24/2024 CBC panel - Blood by Autom ated count MCV [entitic volume] by automated count 95.7 fL low: 80fLhi gh: 98fL MCV 95.7 80.0 - 98.0 fL 05/24 11:21 AM [facility] ATORY HOSPI AIDA Not Available Not Available 07/27/2024 14:29:06 05/24/2005/24/2024 CBC panel - Blood by Autom ated count MCH [entitic mass] by automated count 32.9 pg low: 26.7pg high: 33.6pg MCH 32.9 26.7 - 33.6 pg 05/24 11:21 AM [facility] HOSPI AIDA Not Available Not Available 07/27/2024 14:29:06 05/24/2005/24/2024 CBC panel - Blood by Autom ated count MCHC [mass/volume ] by automated count 34.3 g/dL low: 31.7g/ dLhigh : 36.3g/ dL MCHC 34.3 31.7 - 36.3 g/dL 05/24 11:21 AM [facility] ATORY HOSPI AIDA Not Available Not Available 07/27/2024 14:29:06 05/24/2005/24/2024 CBC panel - Blood by Autom ated count erythrocyte distribution width [ratio] by automated count 11.9 % low: 11.3%h igh: 14.8% RDW-C V 11.9 11.3 - 14.8 % 05/24 11:21 AM [facility] Not Available Not Available 07/27/2024 14:29:06 05/24/20 24 05/24/2024 CBC panel - Blood by Autom ated count platelets [#/volume] in blood by automated count 249 text: 150 - 420 x10e9/ L Plate let Count 249 150 - 420 x10E9 /L 05/24 11:21 AM [facility] [employer] ATORY HOSPI AIDA Not Available Not Available 07/27/2024 14:29:06 05/24/20 24 05/24/2024 CBC panel - Blood by Autom ated count platelet mean volume [entitic volume] in blood by automated count 8.8 fL low: 7.8fLh igh: 11.4fL MPV 8.8 7.8 - 11.4 fL 05/24 11:21 AM [facility] [employer] ATORY HOSPI AIDA Not Available Not Available [...] 7 - 26 mg/dL 05/24 11:35 AM [facility] [employer] HOSPI AIDA Not Available Not Available 07/27/2024 14:29:05 05/24/20 24 05/24/2024 Renal funct ion 1999 panel - Serum or Plasm a creatinine [mass/volume ] in serum or plasma 0.58 mg/dL low: 0.56mg /dLhig h: 0.96mg /dL Creat inine 0.58 0.56 - 0.96 mg/dL 05/24 11:35 AM [employer] ATORY HOSPI AIDA Not Available Not Available 07/27/2024 14:29:05 05/24/20 24 05/24/2024 Renal funct ion 1999 panel - Serum or Plasm a sodium [moles/volum e] in serum or plasma 139 mmol/ L low: 136mmo l/Lhig h: 145mmo l/L Sodiu m 139 136 - 145 mmol/ L 05/24 11:35 AM [facility] Not Available Not Available 07/27/2024 14:29:05 05/24/20 24 05/24/2024 Renal funct ion 1999 panel - Serum or Plasm a potassium [moles/volum e] in serum or plasma 4.6 mmol/ L low: 3.5mmo l/Lhig h: 4.5mmo l/L high Potas sium 4.6 (H) 3.5 - 4.5 mmol/ L 05/24 11:35 AM [facility] Not Available Not Available 07/27/2024 14:29:05 05/24/20 24 05/24/2024 Renal funct ion 1999 panel - Serum or Plasm a chloride [moles/volum e] in serum or plasma 99 mmol/ L low: 98mmol /Lhigh : 107mmo l/L Chlor [place] 99 98 - 107 mmol/ L 05/24 11:35 AM [facility] [employer] Not Available Not Available 07/27/2024 14:29:05 05/24/20 24 05/24/2024 Renal funct ion 1999 panel - Serum or Plasm a carbon dioxide, total [moles/volum e] in serum or plasma 26 mmol/ L low: 22mmol /Lhigh : 29mmol /L CO2 26 22 - 29 mmol/ L 05/24 11:35 AM [facility] Not Available Not Available 07/27/2024 14:29:05 05/24/20 24 05/24/2024 Renal funct ion 1999 panel - Serum or Plasm a glucose [mass/volume ] in serum or plasma 203 mg/dL low: 70mg/d Lhigh: 99mg/d L high Gluco se 203 (H) 70 - 99 mg/dL 05/24 11:35 AM [facility] Not Available Not Available 07/27/2024 14:29:05 05/24/20 24 05/24/2024 Renal funct ion 1999 panel - Serum or Plasm a albumin [mass/volume ] in serum or plasma by bromocresol green (bcg) dye binding method 4.2 g/dL low: 3.4g/d Lhigh: 5g/dL Album in 4.2 3.4 - 5.0 g/dL 05/24 11:35 AM [employer] [facility] Not Available Not Available 07/27/2024 14:29:05 05/24/20 24 05/24/2024 Renal funct ion 1999 panel - Serum or Plasm a calcium [moles/volum e] in serum or plasma 9.3 mg/dL low: 8.4mg/ dLhigh : 10.2mg /dL Calci um 9.3 8.4 - 10.2 mg/dL 05/24 11:35 AM [employer] [facility] Not Available Not Available 07/27/2024 14:29:05 05/24/20 24 05/24/2024 Renal funct ion 1999 panel - Serum or Plasm a phosphate [mass/volume ] in serum or plasma 3.5 mg/dL low: 2.9mg/ dLhigh : 5.1mg/ dL Phosp horus 3.5 2.9 - 5.1 mg/dL 05/24 11:35 AM [facility] [facility] [employer] [facility] Not Available Not Available 07/27/2024 14:29:05 05/24/20 24 05/24/2024 Renal funct ion 1999 panel - Serum or Plasm a anion gap 14 low: 6high: 16 Anion Gap 14 6 - 16 05/24 11:35 AM [employer] [facility] Not Available Not Available 07/27/2024 14:29:05 05/24/20 24 05/24/2024 Renal funct ion 1999 panel - Serum or Plasm a urea nitrogen/cre atinine [mass ratio] in serum or plasma 22 low: 7high: 23 BUN/C reati nine Ratio 22 7 - 23 05/24 11:35 AM [employer] [facility] Not Available Not Available 07/27/2024 14:29:05 05/24/20 24 05/24/2024 Renal funct ion 2000 panel - Serum or Plasm a osmolality calculated 294 text: 275 - 295 mOsm/k g Osmol ality Calcu lated 294 275 - 295 mOsm/ kg 05/24 11:35 AM [employer] [facility] Not Available Not Available 07/27/2024 14:29:05 05/24/20 24 05/24/2024 Renal funct ion 2000 panel - Serum or Plasm a glomerular filtration rate/1.73 sq M.predicted [volume rate/area] in serum, plasma or blood by creatinine-b ased formula (CKD-epi 2020) text: >=90 mL/min /1.73 m2 eGFR by CKD-E PI >90 >=90 mL/mi n/1.7 3 m2 05/24 11:35 AM [facility] [employer] [facility] Not Available Not Available [...] 1.6 - 2.6 mg/dL 05/24 11:35 AM [facility] [employer] [facility] Not Available Not Available 07/27/2024 [...] 70 - 99 mg/dL 05/24 8:37 AM [facility] [employer] [facility] Not Available Not Available 07/27/2024 14:29:05 05/24/20 24 05/24/2024 Gluco se [Mass /volu me] in Arter ial blood specimen source identified Cap Finger stick Speci men Type Cap Finge rstic k 05/24 8:37 AM [employer] [facility] Not Available Not [...] 70 - 99 mg/dL 05/23 11:24 PM [employer] [facility] Not Available Not Available 07/27/2024 14:29:05 05/24/20 24 05/24/2024 Gluco se [Mass /volu me] in Arter ial blood specimen source identified Cap Finger stick Speci men Type Cap Finge rstic k 05/23 11:24 PM [employer] [facility] Not Available Not [...] 70 - 99 mg/dL 05/25 10:15 PM [employer] [facility] Not Available Not Available 07/27/2024 14:29:07 05/25/20 24 05/25/2024 Gluco se [Mass /volu me] in Arter ial blood specimen source identified Cap Finger stick Speci men Type Cap Finge rstic k 05/25 10:15 PM [employer] [facility] Not Available Not [...] 70 - 99 mg/dL 05/25 5:17 PM [facility] [employer] [facility] Not Available Not Available 07/27/2024 14:29:06 05/25/20 24 05/25/2024 Gluco se [Mass /volu me] in Arter ial blood specimen source identified Cap Finger stick Speci men Type Cap Finge rstic k 05/25 5:17 PM [facility] [employer] [facility] Not Available Not [...] 70 - 99 mg/dL 05/25 5:03 PM [facility] [employer] [facility] Not Available Not Available 07/27/2024 14:29:06 05/25/20 24 05/25/2024 Gluco se [Mass /volu me] in Arter ial blood specimen source identified Cap Finger stick Speci men Type Cap Finge rstic k 05/25 5:03 PM [facility] [employer] [facility] Not Available Not [...] 70 - 99 mg/dL 05/25 8:11 AM [employer] [facility] Not Available Not Available 07/27/2024 14:29:06 05/25/20 24 05/25/2024 Gluco se [Mass /volu me] in Arter ial blood specimen source identified Cap Finger stick Speci men Type Cap Finge rstic k 05/25 8:11 AM [employer] [facility] Not Available Not Available [...] - 10.7 x10E9 /L 05/25 3:54 AM [employer] [facility] Not Available Not Available 07/27/2024 14:29:06 05/25/20 24 05/25/2024 CBC panel - Blood by Autom ated count erythrocytes [#/volume] in blood by automated count 3.8 text: 3.90 - 5.20 x10e12 /L low RBC Count 3.80 (L) 3.90 - 5.20 x10E1 2/L 05/25 3:54 AM [employer] [facility] Not Available Not Available 07/27/2024 14:29:06 1205/25/2024 CBC panel - Blood by Autom ated count hemoglobin [mass/volume ] in blood 12.4 g/dL low: 11.9g/ dLhigh : 15.8g/ dL Hemog lobin 12.4 11.9 - 15.8 g/dL 05/25 3:54 AM [facility] [employer] [facility] Not Available Not Available 07/27/2024 14:29:06 05/25/20 24 05/25/2024 CBC panel - Blood by Autom ated count hematocrit [volume fraction] of blood by automated count 36.8 % low: 34.8%h igh: 46.1% Hemat ocrit 36.8 34.8 - 46.1 % 05/25 3:54 AM [facility] [employer] [facility] Not Available Not Available 07/27/2024 14:29:06 05/25/20 24 05/25/2024 CBC panel - Blood by Autom ated count MCV [entitic volume] by automated count 96.8 fL low: 80fLhi gh: 98fL MCV 96.8 80.0 - 98.0 fL 05/25 3:54 AM [facility] [employer] [facility] Not Available Not Available 07/27/2024 14:29:06 05/25/20 24 05/25/2024 CBC panel - Blood by Autom ated count MCH [entitic mass] by automated count 32.6 pg low: 26.7pg high: 33.6pg MCH 32.6 26.7 - 33.6 pg 05/25 3:54 AM [facility] [employer] [facility] Not Available Not Available 07/27/2024 14:29:06 05/25/20 24 05/25/2024 CBC panel - Blood by Autom ated count MCHC [mass/volume ] by automated count 33.7 g/dL low: 31.7g/ dLhigh : 36.3g/ dL MCHC 33.7 31.7 - 36.3 g/dL 05/25 3:54 AM [facility] [employer] [facility] Not Available Not Available 07/27/2024 14:29:06 05/25/20 24 05/25/2024 CBC panel - Blood by Autom ated count erythrocyte distribution width [ratio] by automated count 11.9 % low: 11.3%h igh: 14.8% RDW-C V 11.9 11.3 - 14.8 % 05/25 3:54 AM [facility] [employer] [facility] Not Available Not Available 07/27/2024 14:29:06 05/25/20 24 05/25/2024 CBC panel - Blood by Autom ated count platelets [#/volume] in blood by automated count 219 text: 150 - 420 x10e9/ L Plate let Count 219 150 - 420 x10E9 /L 05/25 3:54 AM [facility] [employer] [facility] Not Available Not Available 07/27/2024 14:29:06 05/25/20 24 05/25/2024 CBC panel - Blood by Autom ated count platelet mean volume [entitic volume] in blood by automated count 8.8 fL low: 7.8fLh igh: 11.4fL MPV 8.8 7.8 - 11.4 fL 05/25 3:54 AM [facility] [employer] [facility] Not Available Not Available [...] 7 - 26 mg/dL 05/25 4:15 AM [facility] [employer] [facility] Not Available Not Available 07/27/2024 14:29:06 05/25/20 24 05/25/2024 Renal funct ion 2000 panel - Serum or Plasm a creatinine [mass/volume ] in serum or plasma 0.54 mg/dL low: 0.56mg /dLhig h: 0.96mg /dL low Creat inine 0.54 (L) 0.56 - 0.96 mg/dL 05/25 4:15 AM [facility] [employer] [facility] Not Available Not Available 07/27/2024 14:29:06 05/25/20 24 05/25/2024 Renal funct ion 1999 panel - Serum or Plasm a sodium [moles/volum e] in serum or plasma 136 mmol/ L low: 136mmo l/Lhig h: 145mmo l/L Sodiu m 136 136 - 145 mmol/ L 05/25 4:15 AM [employer] [facility] Not Available Not Available 07/27/2024 14:29:06 05/25/20 24 05/25/2024 Renal funct ion 1999 panel - Serum or Plasm a potassium [moles/volum e] in serum or plasma 4.3 mmol/ L low: 3.5mmo l/Lhig h: 4.5mmo l/L Potas sium 4.3 3.5 - 4.5 mmol/ L 05/25 4:15 AM [employer] [facility] Not Available Not Available 07/27/2024 14:29:06 05/25/20 24 05/25/2024 Renal funct ion 1999 panel - Serum or Plasm a chloride [moles/volum e] in serum or plasma 104 mmol/ L low: 98mmol /Lhigh : 107mmo l/L Chlor [place]in 104 98 - 107 mmol/ L 05/25 4:15 AM [employer] [facility] Not Available Not Available 07/27/2024 14:29:06 05/25/20 24 05/25/2024 Renal funct ion 1999 panel - Serum or Plasm a carbon dioxide, total [moles/volum e] in serum or plasma 25 mmol/ L low: 22mmol /Lhigh : 29mmol /L CO2 25 22 - 29 mmol/ L 05/25 4:15 AM [employer] [facility] Not Available Not Available 07/27/2024 14:29:06 05/25/20 24 05/25/2024 Renal funct ion 1999 panel - Serum or Plasm a glucose [mass/volume ] in serum or plasma 156 mg/dL low: 70mg/d Lhigh: 99mg/d L high Gluco se 156 (H) 70 - 99 mg/dL 05/25 4:15 AM [employer] [facility] Not Available Not Available 07/27/2024 14:29:06 05/25/20 24 05/25/2024 Renal funct ion 1999 panel - Serum or Plasm a albumin [mass/volume ] in serum or plasma by bromocresol green (bcg) dye binding method 3.8 g/dL low: 3.4g/d Lhigh: 5g/dL Album in 3.8 3.4 - 5.0 g/dL 05/25 4:15 AM [employer] [facility] Not Available Not Available 07/27/2024 14:29:06 05/25/20 24 05/25/2024 Renal funct ion 1999 panel - Serum or Plasm a calcium [moles/volum e] in serum or plasma 8.9 mg/dL low: 8.4mg/ dLhigh : 10.2mg /dL Calci um 8.9 8.4 - 10.2 mg/dL 05/25 4:15 AM [employer] [facility] Not Available Not Available 07/27/2024 14:29:06 05/25/20 24 05/25/2024 Renal funct ion 1999 panel - Serum or Plasm a phosphate [mass/volume ] in serum or plasma 3.4 mg/dL low: 2.9mg/ dLhigh : 5.1mg/ dL Phosp horus 3.4 2.9 - 5.1 mg/dL 05/25 4:15 AM [facility] Not Available Not Available 07/27/2024 14:29:06 05/25/20 24 05/25/2024 Renal funct ion 1999 panel - Serum or Plasm a anion gap 7 low: 6high: 16 Anion Gap 7 6 - 16 05/25 4:15 AM [facility] Not Available Not Available 07/27/2024 14:29:06 05/25/20 24 05/25/2024 Renal funct ion 1999 panel - Serum or Plasm a urea nitrogen/cre atinine [mass ratio] in serum or plasma 28 low: 7high: 23 high BUN/C reati nine Ratio 28 (H) 7 - 23 05/25 4:15 AM [facility] Not Available Not Available 07/27/2024 14:29:06 05/25/20 24 05/25/2024 Renal funct ion 2000 panel - Serum or Plasm a osmolality calculated 286 text: 275 - 295 mOsm/k g Osmol lubna [place] lated 286 275 - 295 mOsm/ kg 05/25 4:15 AM [facility] Not Available Not Available 07/27/2024 14:29:06 05/25/20 24 05/25/2024 Renal funct ion 2000 panel - Serum or Plasm a glomerular filtration rate/1.73 sq M.predicted [volume rate/area] in serum, plasma or blood by creatinine-b ased formula (CKD-epi 2020) text: >=90 mL/min /1.73 m2 eGFR by CKD-E PI >90 >=90 mL/mi n/1.7 3 m2 05/25 4:15 AM [employer] [facility] Not Available Not Available [...] 1.6 - 2.6 mg/dL 05/25 4:15 AM [employer] [facility] Not Available Not Available [...] 30 - 200 U/L 05/25 4:15 AM [employer] [facility] Not Available Not Available 07/27/2024 14:29:06 05/25/20 24 05/25/2024 Creat eva kelly e [Enzy matic activ ity/v olume ] [...] 70 - 99 mg/dL 05/26 9:37 PM [facility] [employer] [facility] Not Available Not Available 07/27/2024 14:29:07 05/26/20 24 05/26/2024 Gluco se [Mass /volu me] in Arter ial blood specimen source identified Cap Finger stick Speci men Type Cap Finge rstic k 05/26 9:37 PM [facility] [employer] [facility] Not Available Not [...] 70 - 99 mg/dL 05/26 4:40 PM [employer] [facility] Not Available Not Available 07/27/2024 14:29:07 05/26/20 24 05/26/2024 Gluco se [Mass /volu me] in Arter ial blood specimen source identified Cap Finger stick Speci men Type Cap Finge rstic k 05/26 4:40 PM [facility] [employer] Not Available [...] 70 - 99 mg/dL 05/26 12:01 PM [facility] [employer] [facility] Not Available Not Available 07/27/2024 14:29:07 05/26/20 24 05/26/2024 Gluco se [Mass /volu me] in Arter ial blood specimen source identified Cap Finger stick Speci men Type Cap Finge rstic k 05/26 12:01 PM [facility] [employer] [facility] Not Available Not [...] 70 - 99 mg/dL 05/26 7:46 AM [facility] [employer] [facility] Not Available Not Available 07/27/2024 14:29:07 05/26/20 24 05/26/2024 Gluco se [Mass /volu me] in Arter ial blood specimen source identified Cap Finger stick Speci men Type Cap Finge rstic k 05/26 7:46 AM [facility] [employer] [facility] Not Available Not [...] - 10.7 x10E9 /L 05/26 7:39 AM [facility] [employer] [facility] Not Available Not Available 07/27/2024 14:29:07 05/26/20 24 05/26/2024 CBC panel - Blood by Autom ated count erythrocytes [#/volume] in blood by automated count 4.03 text: 3.90 - 5.20 x10e12 /L RBC Count 4.03 3.90 - 5.20 x10E1 2/L 05/26 7:39 AM [facility] [employer] [facility] Not Available Not Available 07/27/2024 14:29:07 05/26/20 24 05/26/2024 CBC panel - Blood by Autom ated count hemoglobin [mass/volume ] in blood 13.3 g/dL low: 11.9g/ dLhigh : 15.8g/ dL Hemog lobin 13.3 11.9 - 15.8 g/dL 05/26 7:39 AM [facility] [employer] [facility] Not Available Not Available 07/27/2024 14:29:07 05/26/20 24 05/26/2024 CBC panel - Blood by Autom ated count hematocrit [volume fraction] of blood by automated count 39.2 % low: 34.8%h igh: 46.1% Hemat ocrit 39.2 34.8 - 46.1 % 05/26 7:39 AM [facility] [employer] [facility] Not Available Not Available 07/27/2024 14:29:07 05/26/20 24 05/26/2024 CBC panel - Blood by Autom ated count MCV [entitic volume] by automated count 97.3 fL low: 80fLhi gh: 98fL MCV 97.3 80.0 - 98.0 fL 05/26 7:39 AM [facility] Not Available Not Available 07/27/2024 14:29:07 05/26/20 24 05/26/2024 CBC panel - Blood by Autom ated count MCH [entitic mass] by automated count 33 pg low: 26.7pg high: 33.6pg MCH 33.0 26.7 - 33.6 pg 05/26 7:39 AM [facility] Not Available Not Available 07/27/2024 14:29:07 05/26/20 24 05/26/2024 CBC panel - Blood by Autom ated count MCHC [mass/volume ] by automated count 33.9 g/dL low: 31.7g/ dLhigh : 36.3g/ dL MCHC 33.9 31.7 - 36.3 g/dL 05/26 7:39 AM [facility] Not Available Not Available 07/27/2024 14:29:07 05/26/20 24 05/26/2024 CBC panel - Blood by Autom ated count erythrocyte distribution width [ratio] by automated count 11.9 % low: 11.3%h igh: 14.8% RDW-C V 11.9 11.3 - 14.8 % 05/26 7:39 AM [facility] Not Available Not Available 07/27/2024 14:29:07 05/26/20 24 05/26/2024 CBC panel - Blood by Autom ated count platelets [#/volume] in blood by automated count 225 text: 150 - 420 x10e9/ L Plate let Count 225 150 - 420 x10E9 /L 05/26 7:39 AM [facility] Not Available Not Available 07/27/2024 14:29:07 05/26/20 24 05/26/2024 CBC panel - Blood by Autom ated count platelet mean volume [entitic volume] in blood by automated count 8.6 fL low: 7.8fLh igh: 11.4fL MPV 8.6 7.8 - 11.4 fL 05/26 7:39 AM [facility] Not Available Not [...] 7 - 26 mg/dL 05/26 7:59 AM [facility] Not Available Not Available 07/27/2024 14:29:07 05/26/20 24 05/26/2024 Renal funct ion 1999 panel - Serum or Plasm a creatinine [mass/volume ] in serum or plasma 0.51 mg/dL low: 0.56mg /dLhig h: 0.96mg /dL low Creat inine 0.51 (L) 0.56 - 0.96 mg/dL 05/26 7:59 AM [facility] Not Available Not Available 07/27/2024 14:29:07 05/26/20 24 05/26/2024 Renal funct ion 1999 panel - Serum or Plasm a sodium [moles/volum e] in serum or plasma 135 mmol/ L low: 136mmo l/Lhig h: 145mmo l/L low Sodiu m 135 (L) 136 - 145 mmol/ L 05/26 7:59 AM [facility] Not Available Not Available 07/27/2024 14:29:07 05/26/20 24 05/26/2024 Renal funct ion 1999 panel - Serum or Plasm a potassium [moles/volum e] in serum or plasma 4.9 mmol/ L low: 3.5mmo l/Lhig h: 4.5mmo l/L high Potas sium 4.9 (H) 3.5 - 4.5 mmol/ L 05/26 7:59 AM [facility] Not Available Not Available 07/27/2024 14:29:07 12/26/05/26/2024 Renal funct ion 1999 panel - Serum or Plasm a chloride [moles/volum e] in serum or plasma 105 mmol/ L low: 98mmol /Lhigh : 107mmo l/L Chlor [place] 105 98 - 107 mmol/ L 05/26 7:59 AM [employer] [facility] Not Available Not Available 07/27/2024 14:29:07 05/26/20 24 05/26/2024 Renal funct ion 1999 panel - Serum or Plasm a carbon dioxide, total [moles/volum e] in serum or plasma 24 mmol/ L low: 22mmol /Lhigh : 29mmol /L CO2 24 22 - 29 mmol/ L 05/26 7:59 AM [employer] [facility] Not Available Not Available 07/27/2024 14:29:07 05/26/20 24 05/26/2024 Renal funct ion 1999 panel - Serum or Plasm a glucose [mass/volume ] in serum or plasma 117 mg/dL low: 70mg/d Lhigh: 99mg/d L high Gluco se 117 (H) 70 - 99 mg/dL 05/26 7:59 AM [employer] [facility] Not Available Not Available 07/27/2024 14:29:07 05/26/20 24 05/26/2024 Renal funct ion 1999 panel - Serum or Plasm a albumin [mass/volume ] in serum or plasma by bromocresol green (bcg) dye binding method 4.2 g/dL low: 3.4g/d Lhigh: 5g/dL Album in 4.2 3.4 - 5.0 g/dL 05/26 7:59 AM [employer] [facility] Not Available Not Available 07/27/2024 14:29:07 05/26/20 24 05/26/2024 Renal funct ion 1999 panel - Serum or Plasm a calcium [moles/volum e] in serum or plasma 9.6 mg/dL low: 8.4mg/ dLhigh : 10.2mg /dL Calci um 9.6 8.4 - 10.2 mg/dL 05/26 7:59 AM [employer] [facility] Not Available Not Available 07/27/2024 14:29:07 05/26/20 24 05/26/2024 Renal funct ion 1999 panel - Serum or Plasm a phosphate [mass/volume ] in serum or plasma 3.5 mg/dL low: 2.9mg/ dLhigh : 5.1mg/ dL Phosp horus 3.5 2.9 - 5.1 mg/dL 05/26 7:59 AM [employer] [facility] Not Available Not Available 07/27/2024 14:29:07 05/26/20 24 05/26/2024 Renal funct ion 1999 panel - Serum or Plasm a anion gap 6 low: 6high: 16 Anion Gap 6 6 - 16 05/26 7:59 AM [employer] [facility] Not Available Not Available 07/27/2024 14:29:07 05/26/20 24 05/26/2024 Renal funct ion 2000 panel - Serum or Plasm a urea nitrogen/cre atinine [mass ratio] in serum or plasma 25 low: 7high: 23 high BUN/C reati nine Ratio 25 (H) 7 - 23 05/26 7:59 AM [employer] [facility] Not Available Not Available 07/27/2024 14:29:07 05/26/20 24 05/26/2024 Renal funct ion 1999 panel - Serum or Plasm a osmolality calculated 281 text: 275 - 295 mOsm/k g Osmol ality Calcu lated 281 275 - 295 mOsm/ kg 05/26 7:59 AM [employer] [facility] Not Available Not Available 07/27/2024 14:29:07 05/26/20 24 05/26/2024 Renal funct ion 2000 panel - Serum or Plasm a glomerular filtration rate/1.73 sq M.predicted [volume rate/area] in serum, plasma or blood by creatinine-b ased formula (CKD-epi 2020) text: >=90 mL/min /1.73 m2 eGFR by CKD-E PI >90 >=90 mL/mi n/1.7 3 m2 05/26 7:59 AM [employer] [facility] Not Available Not [...] 1.6 - 2.6 mg/dL 05/26 7:59 AM [employer] [facility] Not Available Not Available [...] 70 - 99 mg/dL 05/27 9:22 PM [employer] [employer] HOS[facility] AIDA Not Available Not Available 07/27/2024 14:29:08 05/27/20 24 05/27/2024 Gluco se [Mass /volu me] in Arter ial blood specimen source identified Cap Finger stick Speci men Type Cap Finge rstic k 05/27 9:22 PM [employer] [facility] Not Available Not Available [...] 70 - 99 mg/dL 05/27 8:10 PM [facility] [employer] [facility] Not Available Not Available 07/27/2024 14:29:08 05/27/20 24 05/27/2024 Gluco se [Mass /volu me] in Arter ial blood specimen source identified Arteri al Speci men Type Arter ial 05/27 8:10 PM [facility] [employer] [facility] Not Available Not Available 07/27/2024 14:29:08 05/27/20 24 05/27/2024 Gluco se [Mass /volu me] in Arter ial blood interpretati on and review of laboratory results Abnorm al Not Available Not Available 14:29:08 05/27/2005/27/2024 CBC panel - Blood by Autom ated count leukocytes [#/volume] in blood by automated count 6.2 text: 4.0 - 10.7 x10e9/ L WBC 6.2 4.0 - 10.7 x10E9 /L 05/27 3:56 PM [facility] [employer] [facility] Not Available Not Available 07/27/2024 14:29:08 05/27/2005/27/2024 CBC panel - Blood by Autom ated count erythrocytes [#/volume] in blood by automated count 4 text: 3.90 - 5.20 x10e12 /L RBC Count 4.00 3.90 - 5.20 x10E1 2/L 05/27 3:56 PM [facility] [employer] [facility] Not Available Not Available 07/27/2024 14:29:08 05/27/20 24 05/27/2024 CBC panel - Blood by Autom ated count hemoglobin [mass/volume ] in blood 13.1 g/dL low: 11.9g/ dLhigh : 15.8g/ dL Hemog lobin 13.1 11.9 - 15.8 g/dL 05/27 3:56 PM [employer] [facility] Not Available Not Available 07/27/2024 14:29:08 05/27/20 24 05/27/2024 CBC panel - Blood by Autom ated count hematocrit [volume fraction] of blood by automated count 38.6 % low: 34.8%h igh: 46.1% Hemat ocrit 38.6 34.8 - 46.1 % 05[facility]27 3:56 [facility] Not Available 07/27/2024 14:29:08 05/27/2005/27/2024 CBC panel - Blood by Autom ated count MCV [entitic volume] by automated count 96.5 fL low: 80fLhi gh: 98fL MCV 96.5 80.0 - 98.0 fL 05/27 3:56 PM [facility] Not Available Not Available 07/27/2024 14:29:08 05/27/2005/27/2024 CBC panel - Blood by Autom ated count MCH [entitic mass] by automated count 32.8 pg low: 26.7pg high: 33.6pg MCH 32.8 26.7 - 33.6 pg 05/27 3:56 PM [facility] Not Available Not Available 07/27/2024 14:29:08 05/27/2005/27/2024 CBC panel - Blood by Autom ated count MCHC [mass/volume ] by automated count 33.9 g/dL low: 31.7g/ dLhigh : 36.3g/ dL MCHC 33.9 31.7 - 36.3 g/dL 05/27 3:56 PM [facility] Not Available Not Available 07/27/2024 14:29:08 05/27/2005/27/2024 CBC panel - Blood by Autom ated count erythrocyte distribution width [ratio] by automated count 12 % low: 11.3%h igh: 14.8% RDW-C V 12.0 11.3 - 14.8 % 05/27 3:56 PM [facility] Not Available Not Available 07/27/2024 14:29:08 05/27/2005/27/2024 CBC panel - Blood by Autom ated count platelets [#/volume] in blood by automated count 231 text: 150 - 420 x10e9/ L Plate let Count 231 150 - 420 x10E9 /L 05/27 3:56 PM [facility] [employer] [facility] Not Available Not Available 07/27/2024 14:29:08 05/27/20 24 05/27/2024 CBC panel - Blood by Autom ated count platelet mean volume [entitic volume] in blood by automated count 8.6 fL low: 7.8fLh igh: 11.4fL MPV 8.6 7.8 - 11.4 fL 05/27 3:56 PM [facility] [employer] [facility] Not Available Not [...] 7 - 26 mg/dL 05/27 4:25 PM [facility] [employer] AT[facility] Not Available Not Available 07/27/2024 14:29:07 05/27/20 24 05/27/2024 Renal funct ion 1999 panel - Serum or Plasm a creatinine [mass/volume ] in serum or plasma 0.65 mg/dL low: 0.56mg /dLhig h: 0.96mg /dL Creat inine 0.65 0.56 - 0.96 mg/dL 05/27 4:25 PM [facility] [employer] [facility] [employer] ATORY [facility] A[facility] Not Available Not Available 07/27/2024 14:29:07 05/27/20 24 05/27/2024 Renal funct ion 1999 panel - Serum or Plasm a sodium [moles/volum e] in serum or plasma 139 mmol/ L low: 136mmo l/Lhig h: 145mmo l/L Sodiu m 139 136 - 145 mmol/ L 05/27 4:25 PM [employer] AT[facility] AIDA Not Available Not Available 07/27/2024 14:29:07 05/27/20 24 05/27/2024 Renal funct ion 1999 panel - Serum or Plasm a potassium [moles/volum e] in serum or plasma 4.2 mmol/ L low: 3.5mmo l/Lhig h: 4.5mmo l/L Potas sium 4.2 3.5 - 4.5 mmol/ L 05/27 4:25 PM [employer] [facility] Not Available Not Available 07/27/2024 14:29:07 05/27/20 24 05/27/2024 Renal funct ion 1999 panel - Serum or Plasm a chloride [moles/volum e] in serum or plasma 102 mmol/ L low: 98mmol /Lhigh : 107mmo l/L Chlor [place]in 102 98 - 107 mmol/ L 05/27 4:25 PM [employer] AT[facility] AIDA Not Available Not Available 07/27/2024 14:29:07 05/27/20 24 05/27/2024 Renal funct ion 1999 panel - Serum or Plasm a carbon dioxide, total [moles/volum e] in serum or plasma 28 mmol/ L low: 22mmol /Lhigh : 29mmol /L CO2 28 22 - 29 mmol/ L 05/27 4:25 PM [employer] AT[facility]IDA Not Available Not Available 07/27/2024 14:29:07 05/27/20 24 05/27/2024 Renal funct ion 1999 panel - Serum or Plasm a glucose [mass/volume ] in serum or plasma 181 mg/dL low: 70mg/d Lhigh: 99mg/d L high Gluco se 181 (H) 70 - 99 mg/dL 05/27 4:25 PM [employer] AT[facility] Not Available Not Available 07/27/2024 14:29:07 05/27/20 24 05/27/2024 Renal funct ion 1999 panel - Serum or Plasm a albumin [mass/volume ] in serum or plasma by bromocresol green (bcg) dye binding method 4.2 g/dL low: 3.4g/d Lhigh: 5g/dL Album in 4.2 3.4 - 5.0 g/dL 05/27 4:25 PM [employer] AT[facility] AIDA Not Available Not Available 07/27/2024 14:29:07 12/27/20 24 05/27/2024 Renal funct ion 1999 panel - Serum or Plasm a calcium [moles/volum e] in serum or plasma 9.4 mg/dL low: 8.4mg/ dLhigh : 10.2mg /dL Calci um 9.4 8.4 - 10.2 mg/dL 05/27 4:25 PM [employer] [facility] Not Available Not Available 07/27/2024 14:29:07 05/27/20 24 05/27/2024 Renal funct ion 1999 panel - Serum or Plasm a phosphate [mass/volume ] in serum or plasma 3.5 mg/dL low: 2.9mg/ dLhigh : 5.1mg/ dL Phosp horus 3.5 2.9 - 5.1 mg/dL 05/27 4:25 PM [employer] [facility] Not Available Not Available 07/27/2024 14:29:07 05/27/20 24 05/27/2024 Renal funct ion 1999 panel - Serum or Plasm a anion gap 9 low: 6high: 16 Anion Gap 9 6 - 16 05/27 4:25 PM [employer] [facility] Not Available Not Available 07/27/2024 14:29:07 05/27/20 24 05/27/2024 Renal funct ion 1999 panel - Serum or Plasm a urea nitrogen/cre atinine [mass ratio] in serum or plasma 20 low: 7high: 23 BUN/C reati nine Ratio 20 7 - 23 05/27 4:25 PM [employer] [facility] Not Available Not Available 07/27/2024 14:29:07 05/27/20 24 05/27/2024 Renal funct ion 1999 panel - Serum or Plasm a osmolality calculated 293 text: 275 - 295 mOsm/k g Osmol alinancy Calcu lated 293 275 - 295 mOsm/ kg 05/27 4:25 PM [employer] [facility] Not Available Not Available 07/27/2024 14:29:07 05/27/20 24 05/27/2024 Renal funct ion 1999 panel - Serum or Plasm a glomerular filtration rate/1.73 sq M.predicted [volume rate/area] in serum, plasma or blood by creatinine-b ased formula (CKD-epi 2020) text: >=90 mL/min /1.73 m2 eGFR by CKD-E PI >90 >=90 mL/mi n/1.7 3 m2 05/27 4:25 PM [employer] AT[facility] Not Available Not Available [...] 1.6 - 2.6 mg/dL 05/27 4:25 PM [employer] AT[facility] Not Available Not Available [...] 70 - 99 mg/dL 05/27 11:56 AM [employer] AT[facility] Not Available Not Available 07/27/2024 14:29:07 05/27/20 24 05/27/2024 Gluco se [Mass /volu me] in Arter ial blood specimen source identified Cap Finger stick Speci men Type Cap Finge rstic k 05/27 11:56 AM [employer] AT[facility] AIDA Not Available Not Available [...] 70 - 99 mg/dL 05/27 12:52 PM [employer] LABOR AT[facility] Not Available Not Available 07/27/2024 14:29:07 05/27/20 24 05/27/2024 Gluco se [Mass /volu me] in Arter ial blood specimen source identified Cap Finger stick Speci men Type [place] rstic k 05/27 12:52 PM [employer] LAB[facility] AT[facility] Not Available Not [...] 70 - 99 mg/dL 05/28 10:46 PM [employer] [facility] Not Available Not Available 07/27/2024 14:29:08 05/28/20 24 05/28/2024 Gluco se [Mass /volu me] in Arter ial blood specimen source identified Cap Finger stick Speci men Type Cap Finge rstic k 05/28 10:46 PM [employer] LAB[facility] Not Available Not [...] 70 - 99 mg/dL 05/28 4:58 PM [employer] [facility] Not Available Not Available 07/27/2024 14:29:08 05/28/20 24 05/28/2024 Gluco se [Mass /volu me] in Arter ial blood specimen source identified Arteri al Speci men Type Arter ial 05/28 4:58 PM [employer] ATORY [facility] AIDA Not Available Not Available [...] 7 - 26 mg/dL 05/28 4:01 PM [employer] AT[facility]IDA Not Available Not Available 07/27/2024 14:29:08 05/28/20 24 05/28/2024 Renal funct ion 1999 panel - Serum or Plasm a creatinine [mass/volume ] in serum or plasma 0.49 mg/dL low: 0.56mg /dLhig h: 0.96mg /dL low Creat inine 0.49 (L) 0.56 - 0.96 mg/dL 05/28 4:01 PM [employer] AT[facility] A[facility] Not Available Not Available 07/27/2024 14:29:08 05/28/20 24 05/28/2024 Renal funct ion 1999 panel - Serum or Plasm a sodium [moles/volum e] in serum or plasma 136 mmol/ L low: 136mmo l/Lhig h: 145mmo l/L Sodiu m 136 136 - 145 mmol/ L 05/28 4:01 PM [facility] [employer] ATORY [facility] AIDA Not Available Not Available 07/27/2024 14:29:08 05/28/20 24 05/28/2024 Renal funct ion 1999 panel - Serum or Plasm a potassium [moles/volum e] in serum or plasma 4 mmol/ L low: 3.5mmo l/Lhig h: 4.5mmo l/L Potas sium 4.0 3.5 - 4.5 mmol/ L 05/28 4:01 PM [facility] ATORY HOSPI AIDA Not Available Not Available 07/27/2024 14:29:08 05/28/20 24 05/28/2024 Renal funct ion 1999 panel - Serum or Plasm a chloride [moles/volum e] in serum or plasma 103 mmol/ L low: 98mmol /Lhigh : 107mmo l/L Chlor austin 103 98 - 107 mmol/ L 05/28 4:01 PM [facility] [employer] ATORY [facility] AIDA Not Available Not Available 07/27/2024 14:29:08 05/28/20 24 05/28/2024 Renal funct ion 1999 panel - Serum or Plasm a carbon dioxide, total [moles/volum e] in serum or plasma 24 mmol/ L low: 22mmol /Lhigh : 29mmol /L CO2 24 22 - 29 mmol/ L 05/28 4:01 PM [facility] [employer] ATORY [facility] AIDA Not Available Not Available 07/27/2024 14:29:08 05/28/20 24 05/28/2024 Renal funct ion 1999 panel - Serum or Plasm a glucose [mass/volume ] in serum or plasma 232 mg/dL low: 70mg/d Lhigh: 99mg/d L high Gluco se 232 (H) 70 - 99 mg/dL 05/28 4:01 PM [facility] [employer] ATORY [facility] AIDA Not Available Not Available 07/27/2024 14:29:08 05/28/20 24 05/28/2024 Renal funct ion 1999 panel - Serum or Plasm a albumin [mass/volume ] in serum or plasma by bromocresol green (bcg) dye binding method 3.9 g/dL low: 3.4g/d Lhigh: 5g/dL Album in 3.9 3.4 - 5.0 g/dL 05/28 4:01 PM [employer] AT[facility] AIDA Not Available Not Available 07/27/2024 14:29:08 05/28/20 24 05/28/2024 Renal funct ion 1999 panel - Serum or Plasm a calcium [moles/volum e] in serum or plasma 9.3 mg/dL low: 8.4mg/ dLhigh : 10.2mg /dL Calci um 9.3 8.4 - 10.2 mg/dL 05/28 4:01 PM [employer] AT[facility] AIDA Not Available Not Available 07/27/2024 14:29:08 05/28/20 24 05/28/2024 Renal funct ion 1999 panel - Serum or Plasm a phosphate [mass/volume ] in serum or plasma 3.7 mg/dL low: 2.9mg/ dLhigh : 5.1mg/ dL Phosp horus 3.7 2.9 - 5.1 mg/dL 05/28 4:01 PM [facility] [employer] AT[facility] AIDA Not Available Not Available 07/27/2024 14:29:08 05/28/20 24 05/28/2024 Renal funct ion 1999 panel - Serum or Plasm a anion gap 9 low: 6high: 16 Anion Gap 9 6 - 16 05/28 4:01 PM [facility] [employer] AT[facility] AIDA Not Available Not Available 07/27/2024 14:29:08 05/28/20 24 05/28/2024 Renal funct ion 1999 panel - Serum or Plasm a urea nitrogen/cre atinine [mass ratio] in serum or plasma 24 low: 7high: 23 high BUN/C reati nine Ratio 24 (H) 7 - 23 05/28 4:01 PM [employer] AT[facility] AIDA Not Available Not Available 07/27/2024 14:29:08 05/28/20 24 05/28/2024 Renal funct ion 1999 panel - Serum or Plasm a osmolality calculated 289 text: 275 - 295 mOsm/k g Osmol ality Calcu lated 289 275 - 295 mOsm/ kg 05/28 4:01 PM [facility] [employer] ATORY [facility] AIDA Not Available Not Available 07/27/2024 14:29:08 05/28/20 24 05/28/2024 Renal funct ion 2000 panel - Serum or Plasm a glomerular filtration rate/1.73 sq M.predicted [volume rate/area] in serum, plasma or blood by creatinine-b ased formula (CKD-epi 2020) text: >=90 mL/min /1.73 m2 eGFR by CKD-E PI >90 >=90 mL/mi n/1.7 3 m2 05/28 4:01 PM [facility] [employer] ATORY [facility] AIDA Not Available Not Available [...] 1.6 - 2.6 mg/dL 05/28 4:01 PM [facility] [employer] ATORY [facility] AIDA Not Available Not Available [...] WBC 6.8 4.0 - 10.7 x10E9 /L 05/28 3:38 PM [facility] [employer] ATORY [facility] AIDA Not Available Not Available 07/27/2024 14:29:08 05/28/20 24 05/28/2024 CBC panel - Blood by Autom ated count erythrocytes [#/volume] in blood by automated count 3.88 text: 3.90 - 5.20 x10e12 /L low RBC Count 3.88 (L) 3.90 - 5.20 x10E1 2/L 05/28 3:38 PM [facility] [employer] ATORY [facility] AIDA Not Available Not Available 07/27/2024 14:29:08 05/28/20 24 05/28/2024 CBC panel - Blood by Autom ated count hemoglobin [mass/volume ] in blood 12.6 g/dL low: 11.9g/ dLhigh : 15.8g/ dL Hemog lobin 12.6 11.9 - 15.8 g/dL 05/28 3:38 PM [facility] Not Available Not Available 07/27/2024 14:29:08 05/28/2005/28/2024 CBC panel - Blood by Autom ated count hematocrit [volume fraction] of blood by automated count 37.8 % low: 34.8%h igh: 46.1% Hemat ocrit 37.8 34.8 - 46.1 % 05/28 3:38 PM [facility] [employer] ATOR [facility] AIDA Not Available Not Available 07/27/2024 14:29:08 05/28/2005/28/2024 CBC panel - Blood by Autom ated count MCV [entitic volume] by automated count 97.4 fL low: 80fLhi gh: 98fL MCV 97.4 80.0 - 98.0 fL 05/28 3:38 PM [facility] [employer] [facility] H[facility] AIDA Not Available Not Available 07/27/2024 14:29:08 05/28/20 24 05/28/2024 CBC panel - Blood by Autom ated count MCH [entitic mass] by automated count 32.5 pg low: 26.7pg high: 33.6pg MCH 32.5 26.7 - 33.6 pg 05/28 3:38 PM [facility] [employer] [facility] H[facility] AIDA Not Available Not Available 07/27/2024 14:29:08 05/28/20 24 05/28/2024 CBC panel - Blood by Autom ated count MCHC [mass/volume ] by automated count 33.3 g/dL low: 31.7g/ dLhigh : 36.3g/ dL MCHC 33.3 31.7 - 36.3 g/dL 05/28 3:38 PM [facility] [employer] ATORY [facility] AIDA Not Available Not Available 07/27/2024 14:29:08 05/28/20 24 05/28/2024 CBC panel - Blood by Autom ated count erythrocyte distribution width [ratio] by automated count 12.2 % low: 11.3%h igh: 14.8% RDW-C V 12.2 11.3 - 14.8 % 05/28 3:38 PM [facility] [employer] ATORY [facility] AIDA Not Available Not Available 07/27/2024 14:29:08 05/28/20 24 05/28/2024 CBC panel - Blood by Autom ated count platelets [#/volume] in blood by automated count 229 text: 150 - 420 x10e9/ L Plate let Count 229 150 - 420 x10E9 /L 05/28 3:38 PM [facility] [employer] ATORY [facility] AIDA Not Available Not Available 07/27/2024 14:29:08 05/28/20 24 05/28/2024 CBC panel - Blood by Autom ated count platelet mean volume [entitic volume] in blood by automated count 9 fL low: 7.8fLh igh: 11.4fL MPV 9.0 7.8 - 11.4 fL 05/28 3:38 PM [facility] [employer] ATORY [facility] AIDA Not Available Not Available [...] 70 - 99 mg/dL 05/28 12:01 PM [facility] [employer] ATORY [facility] AIDA Not Available Not Available 07/27/2024 14:29:08 05/28/20 24 05/28/2024 Gluco se [Mass /volu me] in Arter ial blood specimen source identified Arteri al Speci men Type Arter ial 05/28 12:01 PM [employer] ATORY [facility] AIDA Not Available Not Available [...] 70 - 99 mg/dL 05/28 8:29 AM [employer] ATORY [facility] AIDA Not Available Not Available 07/27/2024 14:29:08 05/28/20 24 05/28/2024 Gluco se [Mass /volu me] in Arter ial blood specimen source identified Cap Finger stick Speci men Type Cap Finge rstic k 05/28 8:29 AM [employer] [facility] Not Available Not Available 07/27/2024 [...] 70 - 99 mg/dL 05/30 8:17 AM [employer] Not Available Not Available 07/27/2024 14:29:09 05/29/20 24 05/30/2024 Gluco se [Mass /volu me] in Arter ial blood specimen source identified Cap Finger stick Speci men Type Cap Finge rstic k 05/30 8:17 AM [employer] LABOR ATORY [facility] AIDA Not Available Not Available 07/27/2024 14:29:09 05/29/20 24 05/30/2024 Gluco se [Mass /volu me] in Arter ial blood interpretati on and review of laboratory results Abnorm al Not Available Not Available 14:29:09 05/29/20 24 05/29/2024 Gluco se [Mass /volu me] in Arter ial blood glucose [mass/volume ] in capillary blood by glucometer 133 mg/dL low: 70mg/d Lhigh: 99mg/d L high Gluco se WB/PO C 133 (H) 70 - 99 mg/dL 05/29 2:21 PM [employer] ATORY [facility] AIDA Not Available Not Available 07/27/2024 14:29:09 05/29/20 24 05/29/2024 Gluco se [Mass /volu me] in Arter ial blood specimen source identified Cap Finger stick Speci men Type Cap Finge rstic k 05/29 2:21 PM [employer] LABOR ATORY [facility] AIDA Not Available Not [...] - 10.7 x10E9 /L 05/29 9:14 AM [employer] LABOR ATORY [facility]PI AIDA Not Available Not Available 07/27/2024 14:29:09 05/29/20 24 05/29/2024 CBC panel - Blood by Autom ated count erythrocytes [#/volume] in blood by automated count 4.02 text: 3.90 - 5.20 x10e12 /L RBC Count 4.02 3.90 - 5.20 x10E1 2/L 05/29 9:14 AM [facility] ATORY HOSPI AIDA Not Available Not Available 07/27/2024 14::05/29/2005/29/2024 CBC panel - Blood by Autom ated count hemoglobin [mass/volume ] in blood 13.1 g/dL low: 11.9g/ dLhigh : 15.8g/ dL Hemog lobin 13.1 11.9 - 15.8 g/dL 05/29 9:14 AM [facility] ATORY [facility]OSPI AIDA Not Available Not Available 07/27/2024 14::05/29/2005/29/2024 CBC panel - Blood by Autom ated count hematocrit [volume fraction] of blood by automated count 38.7 % low: 34.8%h igh: 46.1% Hemat ocrit 38.7 34.8 - 46.1 % 05/29 9:14 AM [facility] HOSPI AIDA Not Available Not Available 07/27/2024 14:29:05/29/20 24 05/29/2024 CBC panel - Blood by Autom ated count MCV [entitic volume] by automated count 96.3 fL low: 80fLhi gh: 98fL MCV 96.3 80.0 - 98.0 fL 05/29 9:14 AM [facility] ATORY HOSPI AIDA Not Available Not Available 07/27/2024 14::05/29/20 24 05/29/2024 CBC panel - Blood by Autom ated count MCH [entitic mass] by automated count 32.6 pg low: 26.7pg high: 33.6pg MCH 32.6 26.7 - 33.6 pg 05/29 9:14 AM [facility] Not Available Not Available 07/27/2024 14::05/29/2005/29/2024 CBC panel - Blood by Autom ated count MCHC [mass/volume ] by automated count 33.9 g/dL low: 31.7g/ dLhigh : 36.3g/ dL MCHC 33.9 31.7 - 36.3 g/dL 05/29 9:14 AM [employer] [facility] LABOR ATORY HOSPI AIDA Not Available Not Available 07/27/2024 14:29:09 05/29/20 24 05/29/2024 CBC panel - Blood by Autom ated count erythrocyte distribution width [ratio] by automated count 12 % low: 11.3%h igh: 14.8% RDW-C V 12.0 11.3 - 14.8 % 05/29 9:14 [facility] Not Available Not Available 07/27/2024 14:29:05/29/20 24 05/29/2024 CBC panel - Blood by Autom ated count platelets [#/volume] in blood by automated count 233 text: 150 - 420 x10e9/ L Plate let Count 233 150 - 420 x10E9 /L 05/29 9:14 AM [facility] [employer] [facility] AIDA Not Available Not Available 07/27/2024 14:29:09 05/29/20 24 05/29/2024 CBC panel - Blood by Autom ated count platelet mean volume [entitic volume] in blood by automated count 8.7 fL low: 7.8fLh igh: 11.4fL MPV 8.7 7.8 - 11.4 fL 05/29 9:14 AM [facility] [employer] [facility] Not Available Not Available 07/27/2024 [...] 7 - 26 mg/dL 05/29 9:33 AM [facility] [employer] [facility] Not Available Not Available 07/27/2024 14:29:09 05/29/20 24 05/29/2024 Renal funct ion 2000 panel - Serum or Plasm a creatinine [mass/volume ] in serum or plasma 0.49 mg/dL low: 0.56mg /dLhig h: 0.96mg /dL low Creat inine 0.49 (L) 0.56 - 0.96 mg/dL 05/29 9:33 AM [employer] ATORY [facility]OSPI AIDA Not Available Not Available 07/27/2024 14:29:09 05/29/20 24 05/29/2024 Renal funct ion 1999 panel - Serum or Plasm a sodium [moles/volum e] in serum or plasma 136 mmol/ L low: 136mmo l/Lhig h: 145mmo l/L Sodiu m 136 136 - 145 mmol/ L 05/29 9:33 AM [employer] ATORY [facility]OSPI AIDA Not Available Not Available 07/27/2024 14:29:09 05/29/20 24 05/29/2024 Renal funct ion 1999 panel - Serum or Plasm a potassium [moles/volum e] in serum or plasma 4.3 mmol/ L low: 3.5mmo l/Lhig h: 4.5mmo l/L Potas sium 4.3 3.5 - 4.5 mmol/ L 05/29 9:33 AM [facility] [employer] ATORY HOSPI AIDA Not Available Not Available 07/27/2024 14:29:09 05/29/20 24 05/29/2024 Renal funct ion 1999 panel - Serum or Plasm a chloride [moles/volum e] in serum or plasma 102 mmol/ L low: 98mmol /Lhigh : 107mmo l/L Chlor austin 102 98 - 107 mmol/ L 05/29 9:33 AM [employer] ATORY [facility] AIDA Not Available Not Available 07/27/2024 14:29:09 05/29/20 24 05/29/2024 Renal funct ion 1999 panel - Serum or Plasm a carbon dioxide, total [moles/volum e] in serum or plasma 24 mmol/ L low: 22mmol /Lhigh : 29mmol /L CO2 24 22 - 29 mmol/ L 05/29 9:33 AM [employer] ATORY [facility] AIDA Not Available Not Available 07/27/2024 14:29:09 05/29/20 24 05/29/2024 Renal funct ion 1999 panel - Serum or Plasm a glucose [mass/volume ] in serum or plasma 147 mg/dL low: 70mg/d Lhigh: 99mg/d L high Gluco se 147 (H) 70 - 99 mg/dL 05/29 9:33 AM [employer] ATORY HOSPI AIDA Not Available Not Available 07/27/2024 14:29:09 05/29/20 24 05/29/2024 Renal funct ion 1999 panel - Serum or Plasm a albumin [mass/volume ] in serum or plasma by bromocresol green (bcg) dye binding method 4.2 g/dL low: 3.4g/d Lhigh: 5g/dL Album in 4.2 3.4 - 5.0 g/dL 05/29 9:33 AM [employer] ATORY [facility] AIDA Not Available Not Available 07/27/2024 14:29:09 05/29/20 24 05/29/2024 Renal funct ion 1999 panel - Serum or Plasm a calcium [moles/volum e] in serum or plasma 9.8 mg/dL low: 8.4mg/ dLhigh : 10.2mg /dL Calci um 9.8 8.4 - 10.2 mg/dL 05/29 9:33 AM [facility] AT[facility] AIDA Not Available Not Available 07/27/2024 14:29:09 05/29/20 24 05/29/2024 Renal funct ion 1999 panel - Serum or Plasm a phosphate [mass/volume ] in serum or plasma 4.1 mg/dL low: 2.9mg/ dLhigh : 5.1mg/ dL Phosp horus 4.1 2.9 - 5.1 mg/dL 05/29 9:33 AM [facility] AT[facility] AIDA Not Available Not Available 07/27/2024 14:29:09 05/29/20 24 05/29/2024 Renal funct ion 1999 panel - Serum or Plasm a anion gap 10 low: 6high: 16 Anion Gap 10 6 - 16 05/29 9:33 AM [facility] [facility] AIDA Not Available Not Available 07/27/2024 14:29:09 05/29/20 24 05/29/2024 Renal funct ion 1999 panel - Serum or Plasm a urea nitrogen/cre atinine [mass ratio] in serum or plasma 27 low: 7high: 23 high BUN/C reati nine Ratio 27 (H) 7 - 23 05/29 9:33 AM [employer] ATORY [facility]OS[facility] AIDA Not Available Not Available 07/27/2024 14:29:09 05/29/20 24 05/29/2024 Renal funct ion 2000 panel - Serum or Plasm a osmolality calculated 285 text: 275 - 295 mOsm/k g Osmol alinancy Calcu lated 285 275 - 295 mOsm/ kg 05/29 9:33 AM [employer] ATORY [facility] AIDA Not Available Not Available 07/27/2024 14:29:09 05/29/20 24 05/29/2024 Renal funct ion 2000 panel - Serum or Plasm a glomerular filtration rate/1.73 sq M.predicted [volume rate/area] in serum, plasma or blood by creatinine-b ased formula (CKD-epi 2020) text: >=90 mL/min /1.73 m2 eGFR by CKD-E PI >90 >=90 mL/mi n/1.7 3 m2 05/29 9:33 AM [facility] AT[facility] AIDA Not Available Not Available [...] 1.6 - 2.6 mg/dL 05/29 9:33 AM [facility] AT[facility] AIDA Not Available Not Available [...] 70 - 99 mg/dL 05/29 12:07 PM [employer] ATORY [facility] AIDA Not Available Not Available 07/27/2024 14:29:08 05/29/20 24 05/29/2024 Gluco se [Mass /volu me] in Arter ial blood specimen source identified Cap Finger stick Speci men Type Cap Finge rstic k 05/29 12:07 PM [employer] ATORY [facility]OS[facility] AIDA Not Available Not Available [...] 70 - 99 mg/dL 05/30 8:24 PM [employer] AT[facility] AIDA Not Available Not Available 07/27/2024 14:29:09 05/30/20 24 05/30/2024 Gluco se [Mass /volu me] in Arter ial blood specimen source identified Cap Finger stick Speci men Type Cap Finge rstic k 05/30 8:24 PM [employer] ATORY [facility] AIDA Not Available Not Available [...] 70 - 99 mg/dL 05/30 5:50 PM [employer] Not Available Not Available 07/27/2024 14:29:09 05/30/20 24 05/30/2024 Gluco se [Mass /volu me] in Arter ial blood specimen source identified Cap Finger stick Speci men Type Cap Finge rstic k 05/30 5:50 PM [facility] [employer] [facility] Not Available Not [...] 70 - 99 mg/dL 05/30 8:18 AM [employer] Not Available Not Available 07/27/2024 14:29:09 05/30/20 24 05/30/2024 Gluco se [Mass /volu me] in Arter ial blood specimen source identified Arteri al Speci men Type Arter ial 05/30 8:18 AM [facility] [employer] [facility] Not Available Not [...] - 10.7 x10E9 /L 05/30 6:53 AM [facility] Not Available Not Available 07/27/2024 14:29:09 05/30/20 24 05/30/2024 CBC panel - Blood by Autom ated count erythrocytes [#/volume] in blood by automated count 3.98 text: 3.90 - 5.20 x10e12 /L RBC Count 3.98 3.90 - 5.20 x10E1 2/L 05/30 6:53 AM [facility] Not [facility] Not Available 07/27/2024 14:29:09 05/30/20 24 05/30/2024 CBC panel - Blood by Autom ated count hemoglobin [mass/volume ] in blood 13 g/dL low: 11.9g/ dLhigh : 15.8g/ dL Hemog lobin 13.0 11.9 - 15.8 g/dL 05/30 6:53 AM [facility] Not Available Not Available 07/27/2024 14:29:09 05/30/20 24 05/30/2024 CBC panel - Blood by Autom ated count hematocrit [volume fraction] of blood by automated count 37.9 % low: 34.8%h igh: 46.1% Hemat ocrit 37.9 34.8 - 46.1 % 05/30 6:53 AM [facility] Not Available Not Available 07/27/2024 14:29:09 05/30/20 24 05/30/2024 CBC panel - Blood by Autom ated count MCV [entitic volume] by automated count 95.2 fL low: 80fLhi gh: 98fL MCV 95.2 80.0 - 98.0 fL 05/30 6:53 AM [facility] Not Available Not Available 07/27/2024 14:29:09 05/30/20 24 05/30/2024 CBC panel - Blood by Autom ated count MCH [entitic mass] by automated count 32.7 pg low: 26.7pg high: 33.6pg MCH 32.7 26.7 - 33.6 pg 05/30 6:53 AM [facility] Not Available Not Available 07/27/2024 14:29:09 05/30/20 24 05/30/2024 CBC panel - Blood by Autom ated count MCHC [mass/volume ] by automated count 34.3 g/dL low: 31.7g/ dLhigh : 36.3g/ dL MCHC 34.3 31.7 - 36.3 g/dL 05/30 6:53 AM [facility] [employer] [facility] Not Available Not Available 07/27/2024 14:29:09 05/30/20 24 05/30/2024 CBC panel - Blood by Autom ated count erythrocyte distribution width [ratio] by automated count 11.9 % low: 11.3%h igh: 14.8% RDW-C V 11.9 11.3 - 14.8 % 05/30 6:53 AM [facility] [employer] [facility] Not Available Not Available 07/27/2024 14:29:09 05/30/20 24 05/30/2024 CBC panel - Blood by Autom ated count platelets [#/volume] in blood by automated count 251 text: 150 - 420 x10e9/ L Plate let Count 251 150 - 420 x10E9 /L 05/30 6:53 AM [facility] [employer] [facility] Not Available Not Available 07/27/2024 14:29:09 05/30/20 24 05/30/2024 CBC panel - Blood by Autom ated count platelet mean volume [entitic volume] in blood by automated count 9.2 fL low: 7.8fLh igh: 11.4fL MPV 9.2 7.8 - 11.4 fL 05/30 6:53 AM [facility] [employer] [facility] Not Available Not Available [...] 7 - 26 mg/dL 05/30 7:06 AM [facility] [employer] [facility] Not Available Not Available 07/27/2024 14:29:09 05/30/20 24 05/30/2024 Renal funct ion 1999 panel - Serum or Plasm a creatinine [mass/volume ] in serum or plasma 0.49 mg/dL low: 0.56mg /dLhig h: 0.96mg /dL low Creat inine 0.49 (L) 0.56 - 0.96 mg/dL 05/30 7:06 AM [facility] [employer] [facility] Not Available Not Available 07/27/2024 14:29:09 05/30/20 24 05/30/2024 Renal funct ion 1999 panel - Serum or Plasm a sodium [moles/volum e] in serum or plasma 135 mmol/ L low: 136mmo l/Lhig h: 145mmo l/L low Sodiu m 135 (L) 136 - 145 mmol/ L 05/30 7:06 AM [facility] [employer] [facility] Not Available Not Available 07/27/2024 14:29:09 05/30/20 24 05/30/2024 Renal funct ion 1999 panel - Serum or Plasm a potassium [moles/volum e] in serum or plasma 4.4 mmol/ L low: 3.5mmo l/Lhig h: 4.5mmo l/L Potas sium 4.4 3.5 - 4.5 mmol/ L 05/30 7:06 AM [facility] [employer] [facility] Not Available Not Available 07/27/2024 14:29:09 05/30/20 24 05/30/2024 Renal funct ion 1999 panel - Serum or Plasm a chloride [moles/volum e] in serum or plasma 104 mmol/ L low: 98mmol /Lhigh : 107mmo l/L Chlor austin 104 98 - 107 mmol/ L 05/30 7:06 AM [facility] [employer] [facility] Not Available Not Available 07/27/2024 14:29:09 05/30/20 24 05/30/2024 Renal funct ion 1999 panel - Serum or Plasm a carbon dioxide, total [moles/volum e] in serum or plasma 24 mmol/ L low: 22mmol /Lhigh : 29mmol /L CO2 24 22 - 29 mmol/ L 05/30 7:06 AM [employer] [facility] Not Available Not Available 07/27/2024 14:29:09 05/30/20 24 05/30/2024 Renal funct ion 1999 panel - Serum or Plasm a glucose [mass/volume ] in serum or plasma 141 mg/dL low: 70mg/d Lhigh: 99mg/d L high Gluco se 141 (H) 70 - 99 mg/dL 05/30 7:06 AM [facility] [employer] [facility] Not Available Not Available 07/27/2024 14:29:09 05/30/20 24 05/30/2024 Renal funct ion 1999 panel - Serum or Plasm a albumin [mass/volume ] in serum or plasma by bromocresol green (bcg) dye binding method 4.2 g/dL low: 3.4g/d Lhigh: 5g/dL Album in 4.2 3.4 - 5.0 g/dL 05/30 7:06 AM [facility] [employer] [facility] Not Available Not Available 07/27/2024 14:29:09 05/30/20 24 05/30/2024 Renal funct ion 1999 panel - Serum or Plasm a calcium [moles/volum e] in serum or plasma 9.6 mg/dL low: 8.4mg/ dLhigh : 10.2mg /dL Calci um 9.6 8.4 - 10.2 mg/dL 05/30 7:06 AM [facility] [employer] [facility] Not Available Not Available 07/27/2024 14:29:09 05/30/20 24 05/30/2024 Renal funct ion 1999 panel - Serum or Plasm a phosphate [mass/volume ] in serum or plasma 3.7 mg/dL low: 2.9mg/ dLhigh : 5.1mg/ dL Phosp horus 3.7 2.9 - 5.1 mg/dL 05/30 7:06 AM [facility] [employer] [employer] [facility] Not Available Not Available 07/27/2024 14:29:09 05/30/20 24 05/30/2024 Renal funct ion 1999 panel - Serum or Plasm a anion gap 7 low: 6high: 16 Anion Gap 7 6 - 16 05/30 7:06 AM [facility] [employer] [employer] [facility] Not Available Not Available 07/27/2024 14:29:09 05/30/20 24 05/30/2024 Renal funct ion 1999 panel - Serum or Plasm a urea nitrogen/cre atinine [mass ratio] in serum or plasma 27 low: 7high: 23 high BUN/C reati nine Ratio 27 (H) 7 - 23 05/30 7:06 AM [facility] Not Available Not Available 07/27/2024 14:29:09 05/30/20 24 05/30/2024 Renal funct ion 2000 panel - Serum or Plasm a osmolality calculated 282 text: 275 - 295 mOsm/k g Osmol ality Calcu lated 282 275 - 295 mOsm/ kg 05/30 7:06 AM [facility] Not Available Not Available 07/27/2024 14:29:09 05/30/20 24 05/30/2024 Renal funct ion 1999 panel - Serum or Plasm a glomerular filtration rate/1.73 sq M.predicted [volume rate/area] in serum, plasma or blood by creatinine-b ased formula (CKD-epi 2020) text: >=90 mL/min /1.73 m2 eGFR by CKD-E PI >90 >=90 mL/mi n/1.7 3 m2 05/30 7:06 AM [facility] Not Available Not Available [...] 1.6 - 2.6 mg/dL 05/30 7:06 AM [facility] Not Available [...] 70 - 99 mg/dL 05/31 9:48 PM [facility] Not Available Not Available 07/27/2024 14:29:10 05/31/20 24 05/31/2024 Gluco se [Mass /volu me] in Arter ial blood specimen source identified Cap Finger stick Speci men Type Cap Finge rstic k 05/31 9:48 PM [facility] Not Available Not [...] 70 - 99 mg/dL 05/31 5:13 PM [facility] Not Available Not Available 07/27/2024 14:29:10 05/31/20 24 05/31/2024 Gluco se [Mass /volu me] in Arter ial blood specimen source identified Cap Finger stick Speci men Type Cap Finge rstic k 05/31 5:13 PM [facility] Not Available Not [...] 70 - 99 mg/dL 05/31 8:27 AM [facility] [employer] [facility] Not Available Not Available 07/27/2024 14:29:10 05/31/20 24 05/31/2024 Gluco se [Mass /volu me] in Arter ial blood specimen source identified Cap Finger stick Speci men Type Cap Finge rstic k 05/31 8:27 AM [facility] [employer] [facility] Not Available Not Available [...] - 10.7 x10E9 /L 05/31 6:51 AM [facility] [employer] [facility] Not Available Not Available 07/27/2024 14:29:10 05/31/20 24 05/31/2024 CBC panel - Blood by Autom ated count erythrocytes [#/volume] in blood by automated count 3.94 text: 3.90 - 5.20 x10e12 /L RBC Count 3.94 3.90 - 5.20 x10E1 2/L 05/31 6:51 AM [facility] [employer] [employer] [facility] Not Available Not Available 07/27/2024 14:29:10 05/31/20 24 05/31/2024 CBC panel - Blood by Autom ated count hemoglobin [mass/volume ] in blood 12.7 g/dL low: 11.9g/ dLhigh : 15.8g/ dL Hemog lobin 12.7 11.9 - 15.8 g/dL 05/31 6:51 AM [facility] [employer] [facility] Not Available Not Available 07/27/2024 14:29:10 05/31/20 24 05/31/2024 CBC panel - Blood by Autom ated count hematocrit [volume fraction] of blood by automated count 37.7 % low: 34.8%h igh: 46.1% Hemat ocrit 37.7 34.8 - 46.1 % 05/31 6:51 AM [facility] [employer] [facility] Not Available Not Available 07/27/2024 14:29:10 05/31/20 24 05/31/2024 CBC panel - Blood by Autom ated count MCV [entitic volume] by automated count 95.7 fL low: 80fLhi gh: 98fL MCV 95.7 80.0 - 98.0 fL 05/31 6:51 AM [facility] [employer] [facility] Not Available Not Available 07/27/2024 14:29:10 05/31/20 24 05/31/2024 CBC panel - Blood by Autom ated count MCH [entitic mass] by automated count 32.2 pg low: 26.7pg high: 33.6pg MCH 32.2 26.7 - 33.6 pg 05/31 6:51 AM [facility] [employer] [facility] Not Available Not Available 07/27/2024 14:29:10 05/31/20 24 05/31/2024 CBC panel - Blood by Autom ated count MCHC [mass/volume ] by automated count 33.7 g/dL low: 31.7g/ dLhigh : 36.3g/ dL MCHC 33.7 31.7 - 36.3 g/dL 05/31 6:51 AM [facility] [employer] [facility] Not Available Not Available 07/27/2024 14:29:10 05/31/20 24 05/31/2024 CBC panel - Blood by Autom ated count erythrocyte distribution width [ratio] by automated count 12.2 % low: 11.3%h igh: 14.8% RDW-C V 12.2 11.3 - 14.8 % 05/31 6:51 AM [facility] [employer] [facility] Not Available Not Available 07/27/2024 14:29:10 05/31/20 24 05/31/2024 CBC panel - Blood by Autom ated count platelets [#/volume] in blood by automated count 258 text: 150 - 420 x10e9/ L Plate let Count 258 150 - 420 x10E9 /L 05/31 6:51 AM [facility] [employer] [facility] Not Available Not Available 07/27/2024 14:29:10 05/31/20 24 05/31/2024 CBC panel - Blood by Autom ated count platelet mean volume [entitic volume] in blood by automated count 9.1 fL low: 7.8fLh igh: 11.4fL MPV 9.1 7.8 - 11.4 fL 05/31 6:51 AM [facility] [employer] [facility] Not Available Not Available [...] 7 - 26 mg/dL 05/31 7:03 AM [facility] [employer] [facility] Not Available Not Available 07/27/2024 14:29:10 05/31/20 24 05/31/2024 Renal funct ion 1999 panel - Serum or Plasm a creatinine [mass/volume ] in serum or plasma 0.67 mg/dL low: 0.56mg /dLhig h: 0.96mg /dL Creat inine 0.67 0.56 - 0.96 mg/dL 05/31 7:03 AM [facility] [employer] [facility] Not Available Not Available 07/27/2024 14:29:10 05/31/20 24 05/31/2024 Renal funct ion 1999 panel - Serum or Plasm a sodium [moles/volum e] in serum or plasma 134 mmol/ L low: 136mmo l/Lhig h: 145mmo l/L low Sodiu m 134 (L) 136 - 145 mmol/ L 05/31 7:03 AM [facility] [employer] [facility] Not Available Not Available 07/27/2024 14:29:10 05/31/20 24 05/31/2024 Renal funct ion 1999 panel - Serum or Plasm a potassium [moles/volum e] in serum or plasma 4.7 mmol/ L low: 3.5mmo l/Lhig h: 4.5mmo l/L high Potas sium 4.7 (H) 3.5 - 4.5 mmol/ L 05/31 7:03 AM [facility] [employer] [facility] Not Available Not Available 07/27/2024 14:29:10 05/31/20 24 05/31/2024 Renal funct ion 1999 panel - Serum or Plasm a chloride [moles/volum e] in serum or plasma 102 mmol/ L low: 98mmol /Lhigh : 107mmo l/L Chlor [place]in 102 98 - 107 mmol/ L 05/31 7:03 AM [facility] [employer] [facility] Not Available Not Available 07/27/2024 14:29:10 05/31/20 24 05/31/2024 Renal funct ion 1999 panel - Serum or Plasm a carbon dioxide, total [moles/volum e] in serum or plasma 24 mmol/ L low: 22mmol /Lhigh : 29mmol /L CO2 24 22 - 29 mmol/ L 05/31 7:03 AM [facility] [employer] [facility] Not Available Not Available 07/27/2024 14:29:10 05/31/20 24 05/31/2024 Renal funct ion 1999 panel - Serum or Plasm a glucose [mass/volume ] in serum or plasma 142 mg/dL low: 70mg/d Lhigh: 99mg/d L high Gluco se 142 (H) 70 - 99 mg/dL 05/31 7:03 AM [facility] [employer] [facility] Not Available Not Available 07/27/2024 14:29:10 05/31/20 24 05/31/2024 Renal funct ion 1999 panel - Serum or Plasm a albumin [mass/volume ] in serum or plasma by bromocresol green (bcg) dye binding method 4 g/dL low: 3.4g/d Lhigh: 5g/dL Album in 4.0 3.4 - 5.0 g/dL 05/31 7:03 AM [facility] Not Available Not Available 07/27/2024 14:29:10 05/31/20 24 05/31/2024 Renal funct ion 1999 panel - Serum or Plasm a calcium [moles/volum e] in serum or plasma 9.5 mg/dL low: 8.4mg/ dLhigh : 10.2mg /dL Calci um 9.5 8.4 - 10.2 mg/dL 05/31 7:03 AM [facility] [employer] [employer] [facility] Not Available Not Available 07/27/2024 14:29:10 05/31/20 24 05/31/2024 Renal funct ion 1999 panel - Serum or Plasm a phosphate [mass/volume ] in serum or plasma 4.2 mg/dL low: 2.9mg/ dLhigh : 5.1mg/ dL Phosp horus 4.2 2.9 - 5.1 mg/dL 05/31 7:03 AM [facility] [employer] [employer] [facility] Not Available Not Available 07/27/2024 14:29:10 05/31/20 24 05/31/2024 Renal funct ion 1999 panel - Serum or Plasm a anion gap 8 low: 6high: 16 Anion Gap 8 6 - 16 05/31 7:03 AM [facility] Not Available Not Available 07/27/2024 14:29:10 05/31/20 24 05/31/2024 Renal funct ion 1999 panel - Serum or Plasm a urea nitrogen/cre atinine [mass ratio] in serum or plasma 24 low: 7high: 23 high BUN/C reati nine Ratio 24 (H) 7 - 23 05/31 7:03 AM [facility] [employer] [employer] [facility] Not Available Not Available 07/27/2024 14:29:10 05/31/20 24 05/31/2024 Renal funct ion 1999 panel - Serum or Plasm a osmolality calculated 282 text: 275 - 295 mOsm/k g Osmol lubna [place] lated 282 275 - 295 mOsm/ kg 05/31 7:03 AM [facility] Not Available Not Available 07/27/2024 14:29:10 05/31/20 24 05/31/2024 Renal funct ion 2000 panel - Serum or Plasm a glomerular filtration rate/1.73 sq M.predicted [volume rate/area] in serum, plasma or blood by creatinine-b ased formula (CKD-epi 2020) text: >=90 mL/min /1.73 m2 eGFR by CKD-E PI >90 >=90 mL/mi n/1.7 3 m2 05/31 7:03 AM [facility] Not Available Not Available [...] 1.6 - 2.6 mg/dL 05/31 7:03 AM [facility] Not Available Not Available [...] 30 - 200 U/L 05/31 7:03 AM [facility] [facility] Not Available Not Available 07/27/2024 14:29:09 05/31/20 24 05/31/2024 Creat eva kelly e [Enzy matic activ ity/v olume ] [...] 70 - 99 mg/dL 06/01 8:12 PM [facility] Not Available Not Available 07/27/2024 14:29:11 06/01/19 25 06/01/2024 Gluco se [Mass /volu me] in Arter ial blood specimen source identified Cap Finger stick Speci men Type Cap Finge rstic k 06/01 8:12 PM [facility] Not Available Not [...] 70 - 99 mg/dL 06/01 5:42 PM [facility] Not Available Not Available 07/27/2024 14:29:11 06/01/19 25 06/01/2024 Gluco se [Mass /volu me] in Arter ial blood specimen source identified Cap Finger stick Speci men Type Cap Finge rstic k 06/01 5:42 PM [facility] Not Available Not [...] 70 - 99 mg/dL 06/01 12:39 PM [facility] Not Available Not Available 07/27/2024 14:29:10 06/01/19 25 06/01/2024 Gluco se [Mass /volu me] in Arter ial blood specimen source identified Cap Finger stick Speci men Type Cap Finge rstic k 06/01 12:39 PM [facility] Not Available Not [...] 70 - 99 mg/dL 06/01 8:33 AM [facility] [facility] Not Available Not Available 07/27/2024 14:29:10 06/01/19 25 06/01/2024 Gluco se [Mass /volu me] in Arter ial blood specimen source identified Cap Finger stick Speci men Type Cap Finge rstic k 06/01 8:33 AM [facility] Not Available Not Available 07/27/2024 14:29:10 06/01/1906/01/2024 Gluco se [Mass /volu me] in Arter ial blood interpretati on and review of laboratory results Abnorm al Not Available Not Available 14:29:10 06/01/1906/01/2024 CBC panel - Blood by Autom ated count leukocytes [#/volume] in blood by automated count 5.1 text: 4.0 - 10.7 x10e9/ L WBC 5.1 4.0 - 10.7 x10E9 /L 06/01 4:06 AM [facility] Not Available Not Available 07/27/2024 14:29:10 06/01/1906/01/2024 CBC panel - Blood by Autom ated count erythrocytes [#/volume] in blood by automated count 3.62 text: 3.90 - 5.20 x10e12 /L low RBC Count 3.62 (L) 3.90 - 5.20 x10E1 2/L 06/01 4:06 AM [facility] Not Available Not Available 07/27/2024 14:29:10 06/01/1906/01/2024 CBC panel - Blood by Autom ated count hemoglobin [mass/volume ] in blood 11.8 g/dL low: 11.9g/ dLhigh : 15.8g/ dL low Hemog lobin 11.8 (L) 11.9 - 15.8 g/dL 06/01 4:06 AM [employer] [facility] Not Available Not Available 07/27/2024 14:29:10 06/01/1906/01/2024 CBC panel - Blood by Autom ated count hematocrit [volume fraction] of blood by automated count 34.9 % low: 34.8%h igh: 46.1% Hemat ocrit 34.9 34.8 - 46.1 % 06/01 4:06 AM [facility] Not Available Not Available 07/27/2024 14:29:10 06/01/19 25 06/01/2024 CBC panel - Blood by Autom ated count MCV [entitic volume] by automated count 96.4 fL low: 80fLhi gh: 98fL MCV 96.4 80.0 - 98.0 fL 06/01 4:06 AM [facility] [employer] [facility] Not Available Not Available 07/27/2024 14:29:10 06/01/1906/01/2024 CBC panel - Blood by Autom ated count MCH [entitic mass] by automated count 32.6 pg low: 26.7pg high: 33.6pg MCH 32.6 26.7 - 33.6 pg 06/01 4:06 AM [facility] [employer] [facility] Not Available Not Available 07/27/2024 14:29:10 06/01/1906/01/2024 CBC panel - Blood by Autom ated count MCHC [mass/volume ] by automated count 33.8 g/dL low: 31.7g/ dLhigh : 36.3g/ dL MCHC 33.8 31.7 - 36.3 g/dL 06/01 4:06 AM [facility] [employer] [facility] Not Available Not Available 07/27/2024 14:29:10 06/01/1906/01/2024 CBC panel - Blood by Autom ated count erythrocyte distribution width [ratio] by automated count 12.3 % low: 11.3%h igh: 14.8% RDW-C V 12.3 11.3 - 14.8 % 06/01 4:06 AM [facility] [employer] [facility] Not Available Not Available 07/27/2024 14:29:10 06/01/1906/01/2024 CBC panel - Blood by Autom ated count platelets [#/volume] in blood by automated count 239 text: 150 - 420 x10e9/ L Plate let Count 239 150 - 420 x10E9 /L 06/01 4:06 AM [facility] [employer] [facility] Not Available Not Available 07/27/2024 14:29:10 06/01/1906/01/2024 CBC panel - Blood by Autom ated count platelet mean volume [entitic volume] in blood by automated count 9.1 fL low: 7.8fLh igh: 11.4fL MPV 9.1 7.8 - 11.4 fL 06/01 4:06 AM [facility] [employer] [facility] Not Available Not Available [...] 7 - 26 mg/dL 06/01 4:27 AM [facility] [employer] [facility] Not Available Not Available 07/27/2024 14:29:10 06/01/1906/01/2024 Renal funct ion 1999 panel - Serum or Plasm a creatinine [mass/volume ] in serum or plasma 0.55 mg/dL low: 0.56mg /dLhig h: 0.96mg /dL low Creat inine 0.55 (L) 0.56 - 0.96 mg/dL 06/01 4:27 AM [facility] [employer] [facility] Not Available Not Available 07/27/2024 14:29:10 06/01/19 25 06/01/2024 Renal funct ion 1999 panel - Serum or Plasm a sodium [moles/volum e] in serum or plasma 130 mmol/ L low: 136mmo l/Lhig h: 145mmo l/L low Sodiu m 130 (L) 136 - 145 mmol/ L 06/01 4:27 AM [facility] [employer] [facility] Not Available Not Available 07/27/2024 14:29:10 06/01/19 25 06/01/2024 Renal funct ion 1999 panel - Serum or Plasm a potassium [moles/volum e] in serum or plasma 4.2 mmol/ L low: 3.5mmo l/Lhig h: 4.5mmo l/L Potas sium 4.2 3.5 - 4.5 mmol/ L 06/01 4:27 AM [facility] [employer] [facility] Not Available Not Available 07/27/2024 14:29:10 01/01/06/01/2024 Renal funct ion 1999 panel - Serum or Plasm a chloride [moles/volum e] in serum or plasma 100 mmol/ L low: 98mmol /Lhigh : 107mmo l/L Chlor [place] 100 98 - 107 mmol/ L 06/01 4:27 AM [facility] Not Available Not Available 07/27/2024 14:29:10 06/01/19 25 06/01/2024 Renal funct ion 1999 panel - Serum or Plasm a carbon dioxide, total [moles/volum e] in serum or plasma 24 mmol/ L low: 22mmol /Lhigh : 29mmol /L CO2 24 22 - 29 mmol/ L 06/01 4:27 AM [facility] Not Available Not Available 07/27/2024 14:29:10 06/01/19 25 06/01/2024 Renal funct ion 1999 panel - Serum or Plasm a glucose [mass/volume ] in serum or plasma 237 mg/dL low: 70mg/d Lhigh: 99mg/d L high Gluco se 237 (H) 70 - 99 mg/dL 06/01 4:27 AM [facility] Not Available Not Available 07/27/2024 14:29:10 06/01/19 25 06/01/2024 Renal funct ion 1999 panel - Serum or Plasm a albumin [mass/volume ] in serum or plasma by bromocresol green (bcg) dye binding method 3.6 g/dL low: 3.4g/d Lhigh: 5g/dL Album in 3.6 3.4 - 5.0 g/dL 06/01 4:27 AM [facility] Not Available Not Available 07/27/2024 14:29:10 06/01/19 25 06/01/2024 Renal funct ion 1999 panel - Serum or Plasm a calcium [moles/volum e] in serum or plasma 8.7 mg/dL low: 8.4mg/ dLhigh : 10.2mg /dL Calci um 8.7 8.4 - 10.2 mg/dL 06/01 4:27 AM [facility] Not Available Not Available 07/27/2024 14:29:10 06/01/19 25 06/01/2024 Renal funct ion 1999 panel - Serum or Plasm a phosphate [mass/volume ] in serum or plasma 3.3 mg/dL low: 2.9mg/ dLhigh : 5.1mg/ dL Phosp horus 3.3 2.9 - 5.1 mg/dL 06/01 4:27 AM [facility] [employer] [employer] [facility] Not Available Not Available 07/27/2024 14:29:10 06/01/19 25 06/01/2024 Renal funct ion 1999 panel - Serum or Plasm a anion gap 6 low: 6high: 16 Anion Gap 6 6 - 16 06/01 4:27 AM [facility] [employer] [employer] [facility] Not Available Not Available 07/27/2024 14:29:10 06/01/19 25 06/01/2024 Renal funct ion 1999 panel - Serum or Plasm a urea nitrogen/cre atinine [mass ratio] in serum or plasma 29 low: 7high: 23 high BUN/C reati nine Ratio 29 (H) 7 - 23 06/01 4:27 AM [employer] [facility] Not Available Not Available 07/27/2024 14:29:10 06/01/19 25 06/01/2024 Renal funct ion 1999 panel - Serum or Plasm a osmolality calculated 279 text: 275 - 295 mOsm/k g Osmol ality Calcu lated 279 275 - 295 mOsm/ kg 06/01 4:27 AM [facility] Not Available Not Available 07/27/2024 14:29:10 06/01/19 25 06/01/2024 Renal funct ion 1999 panel - Serum or Plasm a glomerular filtration rate/1.73 sq M.predicted [volume rate/area] in serum, plasma or blood by creatinine-b ased formula (CKD-epi 2020) text: >=90 mL/min /1.73 m2 eGFR by CKD-E PI >90 >=90 mL/mi n/1.7 3 m2 06/01 4:27 AM [employer] [facility] Not Available Not Available 07/27/2024 14:29:10 06/01/19 25 06/01/2024 Renal funct ion 1999 panel - Serum or Plasm a interpretati on and review of laboratory results Abnorm al Not Available Not Available 14:29:10 06/01/1906/01/2024 Magne sium [Mass /volu me] in Serum or Plasm a magnesium [mass/volume ] in serum or plasma 1.6 mg/dL low: 1.6mg/ dLhigh : 2.6mg/ dL Magne sium 1.6 1.6 - 2.6 mg/dL 06/01 4:27 AM [facility] Not Available Not [...] 29 - 168 U/L 06/26 4:02 AM [employer] [facility] Not Available Not Available [...] 70 - 99 mg/dL 06/25 10:26 PM [employer] [facility] Not Available Not Available 07/14/2024 03:20:38 06/25/19 25 06/25/2024 Compr ehens [place] metab olic 1999 panel - Serum or Plasm a sodium [moles/volum e] in serum or plasma 133 mmol/ L low: 136mmo l/Lhig h: 145mmo l/L low Sodiu m 133 (L) 136 - 145 mmol/ L 06/25 10:26 PM [email or web address] [facility] Not Available Not Available 07/14/2024 03:20:38 06/25/19 25 06/25/2024 Compr ehens [place] metab olic 2000 panel - Serum or Plasm a potassium [moles/volum e] in serum or plasma 4.2 mmol/ L low: 3.5mmo l/Lhig h: 5.1mmo l/L Potas sium 4.2 3.5 - 5.1 mmol/ L 06/25 10:26 PM CHILD DAYCARE WORKER [employer] ATORY Not Available Not Available 07/14/2024 03:20:38 06/25/1906/25/2024 Compr ehens [place] metab olic 1999 panel - Serum or Plasm a chloride [moles/volum e] in serum or plasma 101 mmol/ L low: 98mmol /Lhigh : 107mmo l/L Chlor austin 101 98 - 107 mmol/ L 06/25 10:26 PM CHILD DAYCARE WORKER [employer] ATORY Not Available Not Available 07/14/2024 03:20:38 06/25/1906/25/2024 Compr ehens [place] metab olic 1999 panel - Serum or Plasm a carbon dioxide, total [moles/volum e] in serum or plasma 25 mmol/ L low: 22mmol /Lhigh : 29mmol /L CO2 25 22 - 29 mmol/ L 06/25 10:26 PM [email or web address] ATORY Not Available Not Available 07/14/2024 03:20:38 06/25/19 25 06/25/2024 Compr ehens [place] metab olic 2000 panel - Serum or Plasm a calcium [mass/volume ] in serum or plasma 9.3 mg/dL low: 8.4mg/ dLhigh : 10.4mg /dL Calci um 9.3 8.4 - 10.4 mg/dL 06/25 10:26 PM CHILD DAYCARE WORKER [email or web address] LAB[facility] ATORY Not Available Not Available 07/14/2024 03:20:38 01/2506/25/2024 Compr ehens [place] metab olic 1999 panel - Serum or Plasm a anion gap in blood 7 mmol/ L low: 6mmol/ Lhigh: 16mmol /L Anion Gap 7 6 - 16 mmol/ L 06/25 10:26 PM CHILD DAYCARE WORKER [facility] ATORY Not Available Not Available 07/14/2024 03:20:38 06/25/19 25 06/25/2024 Compr ehens [place] metab olic 1999 panel - Serum or Plasm a urea nitrogen [mass/volume ] in serum or plasma 12 mg/dL low: 7mg/dL high: 26mg/d L BUN 12 7 - 26 mg/dL 06/25 10:26 PM CHILD DAYCARE WORKER [facility] ATORY Not Available Not Available 07/14/2024 03:20:38 06/25/19 25 06/25/2024 Compr ehens [place] metab olic 1999 panel - Serum or Plasm a creatinine [mass/volume ] in serum or plasma 0.73 mg/dL low: 0.57mg /dLhig h: 1.11mg /dL Creat inine 0.73 0.57 - 1.11 mg/dL 06/25 10:26 PM CHILD DAYCARE WORKER [employer] LABOR ATORY Not Available Not Available 07/14/2024 03:20:38 06/25/19 25 06/25/2024 Compr ens [place] metab olic 1999 panel - Serum or Plasm a alkaline phosphatase [enzymatic activity/vol ume] in serum or plasma 53 U/L low: 40U/Lh igh: 150U/L Alkal ine Phosp hatas e 53 40 - 150 U/L 06/25 10:26 PM CHILD DAYCARE WORKER [employer] LABOR ATORY Not Available Not Available 07/14/2024 03:20:38 06/25/19 25 06/25/2024 Compr ehens [place] metab olic 1999 panel - Serum or Plasm a alanine aminotransfe rase [enzymatic activity/vol ume] in serum or plasma 22 U/L low: 0U/Lhi gh: 55U/L ALT 22 0 - 55 U/L 06/25 10:26 PM CHILD DAYCARE WORKER [facility] ATORY Not Available Not Available 07/14/2024 03:20:38 06/25/19 25 06/25/2024 Compr ehens [place] metab olic 1999 panel - Serum or Plasm a aspartate aminotransfe rase [enzymatic activity/vol ume] in serum or plasma 19 U/L low: 5U/Lhi gh: 34U/L AST 19 5 - 34 U/L 06/25 10:26 PM [employer] LABOR ATORY Not Available Not Available 07/14/2024 03:20:38 06/25/19 25 06/25/2024 [facility] PDV 1999 panel - Serum or Plasm a protein [mass/volume ] in serum or plasma 7.1 text: 6.4 - 8.3 gm/dL Prote in Total 7.1 6.4 - 8.3 gm/dL 06/25 10:26 PM [employer] LABOR ATORY Not Available Not Available 07/14/2024 03:20:38 06/25/19 25 06/25/2024 [facility] [employer] panel - Serum or Plasm a albumin [mass/volume ] in serum or plasma 3.9 text: 3.4 - 5.0 gm/dL Album in 3.9 3.4 - 5.0 gm/dL 06/25 10:26 PM [employer] LABOR ATORY Not Available Not Available 07/14/2024 03:20:38 06/25/1906/25/2024 [facility] [employer] panel - Serum or Plasm a bilirubin.to aida [mass/volume ] in serum or plasma 0.3 mg/dL low: 0.2mg/ dLhigh : 1.2mg/ dL Bilir ubin Total 0.3 0.2 - 1.2 mg/dL 06/25 10:26 PM [email or web address] ATORY Not Available Not Available 07/14/2024 03:20:38 06/25/1906/25/2024 [facility] [employer] panel - Serum or Plasm a glomerular filtration rate/1.73 sq M.predicted [volume rate/area] in serum, plasma or blood by creatinine-b ased formula (CKD-epi 2020) 89 text: >=90 mL/min /1.73 m2 low eGFR by CKD-E PI 89 (L) >=90 mL/mi n/1.7 3 m2 06/25 10:26 PM CHILD DAYCARE WORKER [email or web address] LABOR ATORY Not Available Not Available 07/14/2024 03:20:38 06/25/1906/25/2024 Compr ehens [place] metab olic 2000 panel - Serum or Plasm a interpretati on and review of laboratory results Abnorm al Not Available Not Available 03:20:38 06/25/19 25 06/25/2024 CBC W Auto Diffe renti al panel - Blood leukocytes [#/volume] in blood by automated count 8.6 text: 4.0 - 10.7 x10e9/ L WBC 8.6 4.0 - 10.7 x10E9 /L 06/25 10:07 PM CHILD DAYCARE WORKER [employer] LABOR ATORY Not Available Not Available 07/14/2024 03:20:38 06/25/19 25 06/25/2024 CBC W Auto Diffe renti al panel - Blood erythrocytes [#/volume] in blood by automated count 4.2 text: 3.90 - 5.20 x10e12 /L RBC Count 4.20 3.90 - 5.20 x10E1 2/L 06/25 10:07 PM CHILD DAYCARE WORKER [email or web address] LABOR ATORY Not Available Not Available 07/14/2024 03:20:38 06/25/1906/25/2024 CBC W Auto Diffe renti al panel - Blood hemoglobin [mass/volume ] in blood 13.3 g/dL low: 11.9g/ dLhigh : 15.8g/ dL Hemog lobin 13.3 11.9 - 15.8 g/dL 06/25 10:07 PM CHILD DAYCARE WORKER [email or web address] LABOR ATORY Not Available Not Available 07/14/2024 03:20:38 06/25/19 25 06/25/2024 CBC W Auto Diffe renti al panel - Blood hematocrit [volume fraction] of blood by automated count 40.4 % low: 34.8%h igh: 46.1% Hemat ocrit 40.4 34.8 - 46.1 % 06/25 10:07 PM CHILD DAYCARE WORKER [email or web address] LABOR ATORY Not Available Not Available 07/14/2024 03:20:38 06/25/19 25 06/25/2024 CBC W Auto Diffe renti al panel - Blood MCV [entitic volume] by automated count 96.2 fL low: 80fLhi gh: 98fL MCV 96.2 80.0 - 98.0 fL 06/25 10:07 PM CHILD DAYCARE WORKER [email or web address] LABOR ATORY Not Available Not Available 07/14/2024 03:20:38 06/25/19 25 06/25/2024 CBC W Auto [employer] panel - Blood MCH [entitic mass] by automated count 31.7 pg low: 26.7pg high: 33.6pg MCH 31.7 26.7 - 33.6 pg 06/25 10:07 PM CHILD DAYCARE WORKER [email or web address] LABOR ATORY Not Available Not Available 07/14/2024 03:20:38 06/25/1906/25/2024 CBC W Auto Jose Miguel aguilar panel - Blood MCHC [mass/volume ] by automated count 32.9 g/dL low: 31.7g/ dLhigh : 36.3g/ dL MCHC 32.9 31.7 - 36.3 g/dL 06/25 10:07 PM CHILD DAYCARE WORKER [email or web address] LABOR ATORY Not Available Not Available 07/14/2024 03:20:38 06/25/1906/25/2024 CBC W Auto Jose Miguel aguilar panel - Blood erythrocyte distribution width [ratio] by automated count 12.3 % low: 11.3%h igh: 14.8% RDW-C V 12.3 11.3 - 14.8 % 06/25 10:07 PM CHILD DAYCARE WORKER [email or web address] LABOR ATORY Not Available Not Available 07/14/2024 03:20:38 06/25/1906/25/2024 CBC W Auto Jose Miguel aguilar panel - Blood platelets [#/volume] in blood by automated count 224 text: 150 - 420 x10e9/ L Plate let Count 224 150 - 420 x10E9 /L 06/25 10:07 PM CHILD DAYCARE WORKER [email or web address] LABOR ATORY Not Available Not Available 07/14/2024 03:20:38 06/25/1906/25/2024 CBC W Auto Difffartun aguilar panel - Blood platelet mean volume [entitic volume] in blood by automated count 8.6 fL low: 7.8fLh igh: 11.4fL MPV 8.6 7.8 - 11.4 fL 06/25 10:07 PM CHILD DAYCARE WORKER [facility] ATORY Not Available Not Available 07/14/2024 03:20:38 06/25/1906/25/2024 CBC W Auto Diffe renti al panel - Blood neutrophils/ 100 leukocytes in blood by automated count 69.8 % low: 41%hig h: 74% Neutr ophil % 69.8 41.0 - 74.0 % 06/25 10:07 PM CHILD DAYCARE WORKER [facility] LAB[facility] ATORY Not Available Not Available 07/14/2024 03:20:38 06/25/1906/25/2024 CBC W Auto Diffe renti al panel - Blood lymphocytes/ 100 leukocytes in blood by automated count 21.5 % low: 17%hig h: 47% Lymph ocyte % 21.5 17.0 - 47.0 % 06/25 10:07 PM CHILD DAYCARE WORKER [facility] LAB[facility] ATORY Not Available Not Available 07/14/2024 03:20:38 06/25/1906/25/2024 CBC W Auto Diffe renti al panel - Blood monocytes/10 0 leukocytes in blood by automated count 5.9 % low: 3%high : 11% Monoc yte % 5.9 3.0 - 11.0 % 06/25 10:07 PM CHILD DAYCARE WORKER [facility] LAB[facility] ATORY Not Available Not Available 07/14/2024 03:20:38 06/25/1906/25/2024 CBC W Auto Diffe renti al panel - Blood eosinophils/ 100 leukocytes in blood by automated count 2.3 % low: 0%high : 7% Eosin ophil % 2.3 0.0 - 7.0 % 06/25 10:07 PM CHILD DAYCARE WORKER [facility] LAB[facility] ATORY Not Available Not Available 07/14/2024 03:20:38 06/25/1906/25/2024 CBC W Auto Diffe renti al panel - Blood basophils/10 0 leukocytes in blood by automated count 0.2 % low: 0%high : 1.6% Basop hil % 0.2 0.0 - 1.6 % 06/25 10:07 PM CHILD DAYCARE WORKER [facility] LAB[facility] ATORY Not Available Not Available 07/14/2024 03:20:38 06/25/19 25 06/25/2024 CBC W Auto Diffe renti al panel - Blood immature granulocytes /100 leukocytes in blood by automated count 0.3 % low: 0%high : 1% Immat ure Granu locyt es % 0.3 0.0 - 1.0 % 06/25 10:07 PM CHILD DAYCARE WORKER [facility] LAB[facility] ATORY Not Available Not Available 07/14/2024 03:20:38 06/25/19 25 06/25/2024 CBC W Auto Diffe renti al panel - Blood neutrophils [#/volume] in blood by automated count 6.01 text: 1.60 - 7.50 x10e9/ L Neutr ophil Absol paiute-shoshone 6.01 1.60 - 7.50 x10E9 /L 06/25 10:07 PM CHILD DAYCARE WORKER [employer] LABOR ATORY Not Available Not Available 07/14/2024 03:20:38 06/25/19 25 06/25/2024 CBC W Auto Diffe renti al panel - Blood lymphocytes [#/volume] in blood by automated count 1.85 text: 1.00 - 4.40 x10e9/ L Lymph ocyte Absol paiute-shoshone 1.85 1.00 - 4.40 x10E9 /L 06/25 10:07 PM CHILD DAYCARE WORKER [employer] LABOR ATORY Not Available Not Available 07/14/2024 03:20:38 06/25/19 25 06/25/2024 CBC W Auto Diffe renti al panel - Blood monocytes [#/volume] in blood by automated count 0.51 text: 0.15 - 1.00 x10e9/ L Monoc yte Absol paiute-shoshone 0.51 0.15 - 1.00 x10E9 /L 06/25 10:07 PM CHILD DAYCARE WORKER [facility] LAB[facility] ATORY Not Available Not Available 07/14/2024 03:20:38 06/25/19 25 06/25/2024 CBC W Auto Diffe renti al panel - Blood eosinophils [#/volume] in blood 0.2 text: 0.00 - 0.60 x10e9/ L Eosin ophil Absol paiute-shoshone 0.20 0.00 - 0.60 x10E9 /L 06/25 10:07 PM CHILD DAYCARE WORKER [facility] LAB[facility] ATORY Not Available Not Available 07/14/2024 03:20:38 06/25/19 25 06/25/2024 CBC W Auto Diffe renti al panel - Blood basophils [#/volume] in blood by automated count 0.02 text: 0.00 - 0.13 x10e9/ L Basop hil Absol pai[place]-shoshone 0.02 0.00 - 0.13 x10E9 /L 06/25 10:07 PM CHILD DAYCARE WORKER [facility] LABOR ATORY Not Available Not Available [...] h day 5 SHIMA 07/01 2:01 AM CHILD DAYCARE WORKER [employer] GY Not [...] h day 5 SHIMA 07/01 2:01 AM CHILD DAYCARE WORKER [facility] [employer] GY Not Available Not Available 07/14/2024 03:20:38 06/25/19 25 07/01/2024 Bacte tara ident ified in Blood by Cultu re interpretati on and review of laboratory results Normal Not Available Not Available 07/02 03:20:38 06/25/19 25 06/25/2024 Lacta te [Mole s/vol ume] in Blood lactate [moles/volum e] in serum or plasma 1 mmol/ L high: 2mmol/ L Lacti c Acid 1.0 <=2.0 mmol/ L 06/25 10:26 PM CHILD DAYCARE WORKER [facility] ATORY Not Available Not Available 07/14/2024 03:20:38 06/25/19 25 06/25/2024 Lacta te [Mole s/vol ume] in Blood interpretati on and review of laboratory results Normal Not Available Not Available 07/02 03:20:38 06/26/19 25 07/05/2024 Gluco se [Mass /volu me] in Arter ial blood glucose [mass/volume ] in capillary blood by glucometer 123 mg/dL low: 70mg/d Lhigh: 99mg/d L high Gluco se WB/PO C 123 (H) 70 - 99 mg/dL 07/05 8:49 AM CHILD DAYCARE WORKER [facility] LAB[facility] ATORY Not Available Not Available 07/14/2024 03:20:39 06/26/19 25 07/05/2024 Gluco se [Mass /volu me] in Arter ial blood specimen source identified Cap Finger stick Speci men Type Cap Josh rstic k 07/05 8:49 AM CHILD DAYCARE WORKER [facility] LAB[facility] ATORY Not Available Not Available [...] 70 - 99 mg/dL 06/26 6:32 PM CHILD DAYCARE WORKER [facility] LAB[facility] ATORY Not Available Not Available 07/14/2024 03:20:39 06/26/19 25 06/26/2024 Gluco se [Mass /volu me] in Arter ial blood specimen source identified Cap Finger stick Speci men Type Cap Josh rstic k 06/26 6:32 PM CHILD DAYCARE WORKER [facility] LAB[facility] ATORY Not Available Not Available [...] 70 - 99 mg/dL 06/26 12:53 PM CHILD DAYCARE WORKER [facility] LAB[facility] ATORY Not Available Not Available 07/14/2024 03:20:39 06/26/19 25 06/26/2024 Gluco se [Mass /volu me] in Arter ial blood specimen source identified Cap Finger stick Speci men Type Cap Josh rstic k 06/26 12:53 PM CHILD DAYCARE WORKER [facility] LABOR ATORY Not Available Not Available [...] 70 - 99 mg/dL 06/26 8:26 AM CHILD DAYCARE WORKER [facility] LAB[facility] ATORY Not Available Not Available 07/14/2024 03:20:38 06/26/19 25 06/26/2024 Gluco se [Mass /volu me] in Arter ial blood specimen source identified Cap Finger stick Speci men Type Cap Johne rstic k 06/26 8:26 AM CHILD DAYCARE WORKER [facility] LAB[facility] ATORY Not Available Not Available [...] 70 - 99 mg/dL 06/26 5:58 AM CHILD DAYCARE WORKER [facility] LABOR ATORY Not Available Not Available 07/14/2024 03:20:38 06/26/19 25 06/26/2024 Basic metab olic 1999 panel - Serum or Plasm a sodium [moles/volum e] in serum or plasma 133 mmol/ L low: 136mmo l/Lhig h: 145mmo l/L low Sodiu m 133 (L) 136 - 145 mmol/ L 06/26 5:58 AM CHILD DAYCARE WORKER [facility] LABOR ATORY Not Available Not Available 07/14/2024 03:20:38 06/26/19 25 06/26/2024 Basic metab olic 1999 panel - Serum or Plasm a potassium [moles/volum e] in serum or plasma 4.2 mmol/ L low: 3.5mmo l/Lhig h: 5.1mmo l/L Potas sium 4.2 3.5 - 5.1 mmol/ L 06/26 5:58 AM CHILD DAYCARE WORKER [facility] LABOR ATORY Not Available Not Available 07/14/2024 03:20:38 06/26/19 25 06/26/2024 Basic metab olic 1999 panel - Serum or Plasm a chloride [moles/volum e] in serum or plasma 100 mmol/ L low: 98mmol /Lhigh : 107mmo l/L Chlor austin 100 98 - 107 mmol/ L 06/26 5:58 AM CHILD DAYCARE WORKER [facility] LABOR ATORY Not Available Not Available 07/14/2024 03:20:38 06/26/19 25 06/26/2024 Basic metab olic 1999 panel - Serum or Plasm a carbon dioxide, total [moles/volum e] in serum or plasma 25 mmol/ L low: 22mmol /Lhigh : 29mmol /L CO2 25 22 - 29 mmol/ L 06/26 5:58 AM CHILD DAYCARE WORKER [facility] LABOR ATORY Not Available Not Available 07/14/2024 03:20:38 0106/26/2024 [email or web address] 1999 panel - Serum or Plasm a calcium [mass/volume ] in serum or plasma 9 mg/dL low: 8.4mg/ dLhigh : 10.4mg /dL Calci um 9.0 8.4 - 10.4 mg/dL 06/26 5:58 AM [email or web address] ATORY Not Available Not Available 07/14/2024 03:20:38 06/26/1906/26/[address] [employer] Retrof[employer] panel - Serum or Plasm a anion gap in blood 8 mmol/ L low: 6mmol/ Lhigh: 16mmol /L Anion Gap 8 6 - 16 mmol/ L 06/26 5:58 AM [email or web address] ATORY Not Available Not Available 07/14/2024 03:20:38 06/26/1906/26/2024 [employer] Retro[employer] panel - Serum or Plasm a urea nitrogen [mass/volume ] in serum or plasma 12 mg/dL low: 7mg/dL high: 26mg/d L BUN 12 7 - 26 mg/dL 06/26 5:58 AM [email or web address] ATORY Not Available Not Available 07/14/2024 03:20:38 06/26/19 25 06/26/2024 [employer] Retroficiency panel - Serum or Plasm a creatinine [mass/volume ] in serum or plasma 0.64 mg/dL low: 0.57mg /dLhig h: 1.11mg /dL Creat inine 0.64 0.57 - 1.11 mg/dL 06/26 5:58 AM [email or web address] ATORY Not Available Not Available 07/14/2024 03:20:38 06/26/1906/26/2024 [employer]@ panel - Serum or Plasm a glomerular filtration rate/1.73 sq M.predicted [volume rate/area] in serum, plasma or blood by creatinine-b ased formula (CKD-epi 2020) text: >=90 mL/min /1.73 m2 eGFR by CKD-E PI >90 >=90 mL/mi n/1.7 3 m2 06/26 5:58 AM [email or web address] ATORY Not Available Not Available 07/14/2024 03:20:38 06/26/19 06/26/2024 Basic metab olic 2000 panel - Serum or Plasm a interpretati on and review of laboratory results Abnorm al Not Available Not Available 03:20:38 06/26/19 25 06/27/2024 Bacte tara ident ified in Urine by Cultu re bacteria identified in urine by culture No growth (<100 CFU/mL ) Cultu re Urine No growt h (<100 CFU/m L) SHIMA 06/27 7:42 AM CHILD DAYCARE WORKER [facility] [employer] GY Not [...] w Yello w, Straw 06/26 3:30 AM CHILD DAYCARE WORKER [facility] LABOR ATORY Not Available Not Available 07/14/2024 03:20:38 06/26/19 25 06/26/2024 Urina lysis panel - Urine by Auto clarity in urine by refractometr y automated Clear text: clear Joaquina ty UA Clear Clear 06/26 3:30 AM CHILD DAYCARE WORKER [facility] ATORY Not Available Not Available 07/14/2024 03:20:38 06/26/19 25 06/26/2024 Urina lysis panel - Urine by Auto glucose [presence] in urine by test strip Normal text: normal Gluco se UA Mable l Mable l 06/26 3:30 AM CHILD DAYCARE WORKER [facility] ATORY Not Available Not Available 07/14/2024 03:20:38 06/26/19 25 06/26/2024 Urina lysis panel - Urine by Auto bilirubin.to aida [presence] in urine by test strip Negati ve text: negati ve Bilir ubin UA Negat linwood Negat linwood 06/26 3:30 AM CHILD DAYCARE WORKER [facility] ATORY Not Available Not Available 07/14/2024 03:20:38 06/26/19 25 06/26/2024 Urina lysis panel - Urine by Auto ketones [presence] in urine by automated test strip Negati ve text: negati ve Keton e UA Negat linwood Negat linwood 06/26 3:30 AM CHILD DAYCARE WORKER [facility] ATORY Not Available Not Available 07/14/2024 03:20:38 06/26/19 25 06/26/2024 Urina lysis panel - Urine by Auto specific gravity of urine by test strip 1.033 low: 1.005h igh: 1.03 high Speci fic Gravi ty UA 1.033 (H) 1.005 - 1.030 06/26 3:30 AM CHILD DAYCARE WORKER [facility] ATORY Not Available Not Available 07/14/2024 03:20:38 06/26/19 25 06/26/2024 Urina lysis panel - Urine by Auto hemoglobin [presence] in urine by test strip 3+ text: negati ve abnormal Blood UA 3+ (A) Negat linwood 06/26 3:30 AM CHILD DAYCARE WORKER [facility] ATORY Not Available Not Available 07/14/2024 03:20:38 06/26/19 25 06/26/2024 Urina lysis panel - Urine by Auto pH of urine by test strip 7 pH low: 5pHhig h: 9pH pH UA 7.0 5.0 - 9.0 pH 06/26 3:30 AM CHILD DAYCARE WORKER [facility] ATORY Not Available Not Available 07/14/2024 03:20:38 06/26/19 25 06/26/2024 Urina lysis panel - Urine by Auto protein [presence] in urine by test strip Trace text: negati ve abnormal Prote in UA Trace (A) Negat linwood 06/26 3:30 AM CHILD DAYCARE WORKER [facility] ATORY Not Available Not Available 07/14/2024 03:20:38 06/26/19 25 06/26/2024 Urina lysis panel - Urine by Auto urobilinogen [mass/volume ] in urine by automated test strip Normal text: normal mg/dL Urobi linog en UA Mable l Mable l mg/dL 06/26 3:30 AM CHILD DAYCARE WORKER [facility] ATORY Not Available Not Available 07/14/2024 03:20:38 06/26/19 25 06/26/2024 Urina lysis panel - Urine by Auto nitrite [presence] in urine by test strip Negati ve text: negati ve Nitri te UA Negat linwood Negat linwood 06/26 3:30 AM CHILD DAYCARE WORKER [facility] ATORY Not Available Not Available 07/14/2024 03:20:38 06/26/19 25 06/26/2024 Urina lysis panel - Urine by Auto leukocyte esterase [presence] in urine by test strip 75 JUAN/uL text: negati ve abnormal Leuko cyte UA 75 JUAN/u L (A) Negat linwood 06/26 3:30 AM CHILD DAYCARE WORKER [facility] ATORY Not Available Not Available 07/14/2024 03:20:38 06/26/19 25 06/26/2024 Urina lysis panel - Urine by Auto erythrocytes [#/area] in urine sediment by automated count >100 text: 0 - 5 # /hpf abnormal RBC UA >100 (A) 0 - 5 # /hpf 06/26 3:30 AM CHILD DAYCARE WORKER [facility] ATORY Not Available Not Available 07/14/2024 03:20:38 06/26/19 25 06/26/2024 Urina lysis panel - Urine by Auto leukocytes [#/area] in urine sediment by automated count 6-10 text: 0 - 5 # /hpf abnormal WBC UA 6-10 (A) 0 - 5 # /hpf 06/26 3:30 AM CHILD DAYCARE WORKER [facility] ATORY Not Available Not Available 07/14/2024 03:20:38 06/26/1906/26/2024 Urina lysis panel - Urine by Auto bacteria [presence] in urine by automated None Seen text: none seen Bacte tara UA None Seen None Seen 06/26 3:30 AM CHILD DAYCARE WORKER [facility] ATORY Not Available Not Available 07/14/2024 03:20:38 06/26/19 25 06/26/2024 Urina lysis panel - Urine by Auto epithelial cells.squamo us [presence] in urine by automated None Seen text: 0 - 5 /hpf Squam ous Epith elial Cells None Seen 0 - 5 /hpf 06/26 3:30 AM CHILD DAYCARE WORKER [facility] ATORY Not Available Not Available [...] 70 - 99 mg/dL 06/27 8:06 PM CHILD DAYCARE WORKER [facility] ATORY Not Available Not Available 07/14/2024 03:20:39 06/27/19 25 06/27/2024 Gluco se [Mass /volu me] in Arter ial blood specimen source identified Arteri al Speci men Type Arter ial 06/27 8:06 PM CHILD DAYCARE WORKER [facility] ATORY Not Available Not Available [...] 70 - 99 mg/dL 06/27 7:03 PM CHILD DAYCARE WORKER [facility] ATORY Not Available Not Available 07/14/2024 03:20:39 06/27/19 25 06/27/2024 Gluco se [Mass /volu me] in Arter ial blood specimen source identified Cap Finger stick Speci men Type Cap Finge rstic k 06/27 7:03 PM CHILD DAYCARE WORKER [facility] ATORY Not Available Not Available [...] 70 - 99 mg/dL 07/05 8:49 AM CHILD DAYCARE WORKER [facility] AT[facility] Not Available Not Available 07/14/2024 03:20:39 06/27/19 25 07/05/2024 Gluco se [Mass /volu me] in Arter ial blood specimen source identified Cap Finger stick Speci men Type Cap Josh rstic k 07/05 8:49 AM CHILD DAYCARE WORKER [facility] ATORY Not Available Not Available [...] 70 - 99 mg/dL 07/05 8:49 AM CHILD DAYCARE WORKER [facility] AT[facility] Not Available Not Available 07/14/2024 03:20:39 06/27/19 25 07/05/2024 Gluco se [Mass /volu me] in Arter ial blood specimen source identified Cap Finger stick Speci men Type Cap Johne rstic k 07/05 8:49 AM CHILD DAYCARE WORKER [facility] ATORY Not Available Not Available [...] 70 - 99 mg/dL 06/27 4:40 AM [email or web address] ATORY Not Available Not Available 07/14/2024 03:20:39 06/27/19 25 06/27/2024 Renal funct ion 1999 panel - Serum or Plasm a sodium [moles/volum e] in serum or plasma 133 mmol/ L low: 136mmo l/Lhig h: 145mmo l/L low Sodiu m 133 (L) 136 - 145 mmol/ L 06/27 4:40 AM [email or web address] ATORY Not Available Not Available 07/14/2024 03:20:39 06/27/19 25 06/27/2024 Renal funct ion 1999 panel - Serum or Plasm a potassium [moles/volum e] in serum or plasma 4.1 mmol/ L low: 3.5mmo l/Lhig h: 5.1mmo l/L Potas sium 4.1 3.5 - 5.1 mmol/ L 06/27 4:40 AM [email or web address] ATORY Not Available Not Available 07/14/2024 03:20:39 06/27/19 25 06/27/2024 Renal funct ion 1999 panel - Serum or Plasm a chloride [moles/volum e] in serum or plasma 100 mmol/ L low: 98mmol /Lhigh : 107mmo l/L Chlor austin 100 98 - 107 mmol/ L 06/27 4:40 AM [email or web address] ATORY Not Available Not Available 07/14/2024 03:20:39 06/27/19 25 06/27/2024 Renal funct ion 1999 panel - Serum or Plasm a carbon dioxide, total [moles/volum e] in serum or plasma 26 mmol/ L low: 22mmol /Lhigh : 29mmol /L CO2 26 22 - 29 mmol/ L 06/27 4:40 AM [email or web address] ATORY Not Available Not Available 07/14/2024 03:20:39 06/27/19 25 06/27/2024 Renal funct ion 1999 panel - Serum or Plasm a calcium [mass/volume ] in serum or plasma 8.6 mg/dL low: 8.4mg/ dLhigh : 10.4mg /dL Calci um 8.6 8.4 - 10.4 mg/dL 06/27 4:40 AM [email or web address] ATORY Not Available Not Available 07/14/2024 03:20:39 06/27/19 25 06/27/2024 Renal funct ion 1999 panel - Serum or Plasm a anion gap in blood 7 mmol/ L low: 6mmol/ Lhigh: 16mmol /L Anion Gap 7 6 - 16 mmol/ L 06/27 4:40 AM [email or web address] ATORY Not Available Not Available 07/14/2024 03:20:39 06/27/19 25 06/27/2024 Renal funct ion 1999 panel - Serum or Plasm a urea nitrogen [mass/volume ] in serum or plasma 13 mg/dL low: 7mg/dL high: 26mg/d L BUN 13 7 - 26 mg/dL 06/27 4:40 AM [email or web address] Not Available Not Available 07/14/2024 03:20:39 06/27/19 25 06/27/2024 Renal funct ion 1999 panel - Serum or Plasm a creatinine [mass/volume ] in serum or plasma 0.65 mg/dL low: 0.57mg /dLhig h: 1.11mg /dL Creat inine 0.65 0.57 - 1.11 mg/dL 06/27 4:40 AM [email or web address] Not Available Not Available 07/14/2024 03:20:39 06/27/19 25 06/27/2024 Renal funct ion 1999 panel - Serum or Plasm a albumin [mass/volume ] in serum or plasma 3.6 text: 3.4 - 5.0 gm/dL Album in 3.6 3.4 - 5.0 gm/dL 06/27 4:40 AM [email or web address] Not Available Not Available 07/14/2024 03:20:39 06/27/19 25 06/27/2024 Renal funct ion 1999 panel - Serum or Plasm a phosphate [mass/volume ] in serum or plasma 3.3 mg/dL low: 2.5mg/ dLhigh : 4.5mg/ dL Phosp horus 3.3 2.5 - 4.5 mg/dL 06/27 4:40 AM [facility] Not Available Not Available 07/14/2024 03:20:39 06/27/19 25 06/27/2024 Renal funct ion 2000 panel - Serum or Plasm a glomerular filtration rate/1.73 sq M.predicted [volume rate/area] in serum, plasma or blood by creatinine-b ased formula (CKD-epi 2020) text: >=90 mL/min /1.73 m2 eGFR by CKD-E PI >90 >=90 mL/mi n/1.7 3 m2 06/27 4:40 AM [facility] Not Available Not Available 07/14/2024 03:20:39 06/27/1906/27/2024 Renal funct ion 2000 panel - Serum or Plasm a interpretati on and review of laboratory results Abnorm al Not Available Not Available 03:20:39 06/27/19 25 06/27/2024 CBC panel - Blood by Autom ated count leukocytes [#/volume] in blood by automated count 5.7 text: 4.0 - 10.7 x10e9/ L WBC 5.7 4.0 - 10.7 x10E9 /L 06/27 4:31 AM [facility] Not Available Not Available 07/14/2024 03:20:39 06/27/19 25 06/27/2024 CBC panel - Blood by Autom ated count erythrocytes [#/volume] in blood by automated count 3.79 text: 3.90 - 5.20 x10e12 /L low RBC Count 3.79 (L) 3.90 - 5.20 x10E1 2/L 06/27 4:31 AM [facility] Not Available Not Available 07/14/2024 03:20:39 06/27/19 25 06/27/2024 CBC panel - Blood by Autom ated count hemoglobin [mass/volume ] in blood 12.2 g/dL low: 11.9g/ dLhigh : 15.8g/ dL Hemog lobin 12.2 11.9 - 15.8 g/dL 06/27 4:31 AM [facility] Not Available Not Available 07/14/2024 03:20:39 06/27/19 25 06/27/2024 CBC panel - Blood by Autom ated count hematocrit [volume fraction] of blood by automated count 36.1 % low: 34.8%h igh: 46.1% Hemat ocrit 36.1 34.8 - 46.1 % 06/27 4:31 AM [email or web address] Not Available Not Available 07/14/2024 03:20:39 06/27/19 25 06/27/2024 CBC panel - Blood by Autom ated count MCV [entitic volume] by automated count 95.3 fL low: 80fLhi gh: 98fL MCV 95.3 80.0 - 98.0 fL 06/27 4:31 AM [email or web address] Not Available Not Available 07/14/2024 03:20:39 06/27/19 25 06/27/2024 CBC panel - Blood by Autom ated count MCH [entitic mass] by automated count 32.2 pg low: 26.7pg high: 33.6pg MCH 32.2 26.7 - 33.6 pg 06/27 4:31 AM [email or web address] Not Available Not Available 07/14/2024 03:20:39 06/27/19 25 06/27/2024 CBC panel - Blood by Autom ated count MCHC [mass/volume ] by automated count 33.8 g/dL low: 31.7g/ dLhigh : 36.3g/ dL MCHC 33.8 31.7 - 36.3 g/dL 06/27 4:31 AM [email or web address] Not Available Not Available 07/14/2024 03:20:39 06/27/19 25 06/27/2024 CBC panel - Blood by Autom ated count erythrocyte distribution width [ratio] by automated count 12.1 % low: 11.3%h igh: 14.8% RDW-C V 12.1 11.3 - 14.8 % 06/27 4:31 AM [facility] [employer] Not Available Not Available 07/14/2024 03:20:39 06/27/19 25 06/27/2024 CBC panel - Blood by Autom ated count platelets [#/volume] in blood by automated count 205 text: 150 - 420 x10e9/ L Plate let Count 205 150 - 420 x10E9 /L 06/27 4:31 AM [facility] [employer] AT[facility] Not Available Not Available 07/14/2024 03:20:39 06/27/19 25 06/27/2024 CBC panel - Blood by Autom ated count platelet mean volume [entitic volume] in blood by automated count 8.7 fL low: 7.8fLh igh: 11.4fL MPV 8.7 7.8 - 11.4 fL 06/27 4:31 AM [facility] [employer] Not Available Not Available [...] 70 - 99 mg/dL 06/28 5:48 PM [facility] [employer] [facility] Not Available Not Available 07/14/2024 03:20:40 06/28/19 25 06/28/2024 Gluco se [Mass /volu me] in Arter ial blood specimen source identified Cap Finger stick Speci men Type Cap Finge rstic k 06/28 5:48 PM [facility] [employer] Not Available Not Available [...] 10.0 - 20.0 ug/mL 06/28 1:42 PM [facility] [employer] Not Available Not Available [...] 70 - 99 mg/dL 06/28 12:46 PM [facility] [employer] Not Available Not Available 07/14/2024 03:20:40 06/28/19 25 06/28/2024 Gluco se [Mass /volu me] in Arter ial blood specimen source identified Cap Finger stick Speci men Type Cap Finge rstic k 06/28 12:46 PM [facility] [employer] Not Available Not Available [...] 70 - 99 mg/dL 06/28 12:46 PM [facility] [employer] Not Available Not Available 07/14/2024 03:20:39 01/28/06/28/2024 Gluco se [Mass /volu me] in Arter ial blood specimen source identified Cap Finger stick Speci men Type Cap Finge rstic k 06/28 12:46 PM [facility] [employer] [employer] LABOR ATORY Not Available Not Available 07/14/2024 [...] 10.0 - 20.0 ug/mL 06/28 5:05 AM [facility] [employer] [employer] LABOR ATORY Not Available Not Available 07/14/2024 [...] 29 - 168 U/L 06/28 6:46 AM [employer] [employer] LABOR ATORY Not Available Not Available 07/14/2024 03:20:39 06/28/19 25 06/28/2024 Creat ine kinas e [Enzy matic activ ity/v olume ] in Serum or Plasm a interpretati on and review of laboratory results Normal Not Available Not Available 07/02 03:20:39 06/28/19 25 06/28/2024 Renal funct ion 2000 panel - Serum or Plasm a glucose [mass/volume ] in serum or plasma 188 mg/dL low: 70mg/d Lhigh: 99mg/d L high Gluco se 188 (H) 70 - 99 mg/dL 06/28 5:07 AM [email or web address] Not Available Not Available 07/14/2024 03:20:39 06/28/19 25 06/28/2024 Renal funct ion 1999 panel - Serum or Plasm a sodium [moles/volum e] in serum or plasma 133 mmol/ L low: 136mmo l/Lhig h: 145mmo l/L low Sodiu m 133 (L) 136 - 145 mmol/ L 06/28 5:07 AM [email or web address] Not Available Not Available 07/14/2024 03:20:39 06/28/19 25 06/28/2024 Renal funct ion 1999 panel - Serum or Plasm a potassium [moles/volum e] in serum or plasma 4.5 mmol/ L low: 3.5mmo l/Lhig h: 5.1mmo l/L Potas sium 4.5 3.5 - 5.1 mmol/ L 06/28 5:07 AM [email or web address] Not Available Not Available 07/14/2024 03:20:39 06/28/19 25 06/28/2024 Renal funct ion 1999 panel - Serum or Plasm a chloride [moles/volum e] in serum or plasma 103 mmol/ L low: 98mmol /Lhigh : 107mmo l/L Chlor [place] 103 98 - 107 mmol/ L 06/28 5:07 AM [email or web address] Not Available Not Available 07/14/2024 03:20:39 06/28/19 25 06/28/2024 Renal funct ion 1999 panel - Serum or Plasm a carbon dioxide, total [moles/volum e] in serum or plasma 23 mmol/ L low: 22mmol /Lhigh : 29mmol /L CO2 23 22 - 29 mmol/ L 06/28 5:07 AM [email or web address] Not Available Not Available 07/14/2024 03:20:39 06/28/19 25 06/28/2024 Renal funct ion 1999 panel - Serum or Plasm a calcium [mass/volume ] in serum or plasma 8.8 mg/dL low: 8.4mg/ dLhigh : 10.4mg /dL Calci um 8.8 8.4 - 10.4 mg/dL 06/28 5:07 AM [email or web address] Not Available Not Available 07/14/2024 03:20:39 06/28/19 25 06/28/2024 Renal funct ion 1999 panel - Serum or Plasm a anion gap in blood 7 mmol/ L low: 6mmol/ Lhigh: 16mmol /L Anion Gap 7 6 - 16 mmol/ L 06/28 5:07 AM [email or web address] Not Available Not Available 07/14/2024 03:20:39 06/28/19 25 06/28/2024 Renal funct ion 1999 panel - Serum or Plasm a urea nitrogen [mass/volume ] in serum or plasma 15 mg/dL low: 7mg/dL high: 26mg/d L BUN 15 7 - 26 mg/dL 06/28 5:07 AM [email or web address] Not Available Not Available 07/14/2024 03:20:39 06/28/19 25 06/28/2024 Renal funct ion 1999 panel - Serum or Plasm a creatinine [mass/volume ] in serum or plasma 0.64 mg/dL low: 0.57mg /dLhig h: 1.11mg /dL Creat inine 0.64 0.57 - 1.11 mg/dL 06/28 5:07 AM [email or web address] Not Available Not Available 07/14/2024 03:20:39 06/28/19 25 06/28/2024 Renal funct ion 1999 panel - Serum or Plasm a albumin [mass/volume ] in serum or plasma 3.8 text: 3.4 - 5.0 gm/dL Album in 3.8 3.4 - 5.0 gm/dL 06/28 5:07 AM [email or web address] Not Available Not Available 07/14/2024 03:20:39 06/28/19 25 06/28/2024 Renal funct ion 1999 panel - Serum or Plasm a phosphate [mass/volume ] in serum or plasma 3 mg/dL low: 2.5mg/ dLhigh : 4.5mg/ dL Phosp horus 3.0 2.5 - 4.5 mg/dL 06/28 5:07 AM [email or web address] Not Available Not Available 07/14/2024 03:20:39 06/28/1906/28/2024 Renal funct ion 2000 panel - Serum or Plasm a glomerular filtration rate/1.73 sq M.predicted [volume rate/area] in serum, plasma or blood by creatinine-b ased formula (CKD-epi 2020) text: >=90 mL/min /1.73 m2 eGFR by CKD-E PI >90 >=90 mL/mi n/1.7 3 m2 06/28 5:07 AM [email or web address] Not Available Not Available 07/14/2024 03:20:39 [...] - 10.7 x10E9 /L 06/28 4:47 AM [email or web address] Not Available Not Available 07/14/2024 03:20:39 06/28/1906/28/2024 CBC panel - Blood by Autom ated count erythrocytes [#/volume] in blood by automated count 4.01 text: 3.90 - 5.20 x10e12 /L RBC Count 4.01 3.90 - 5.20 x10E1 2/L 06/28 4:47 AM [email or web address] Not Available Not Available 07/14/2024 03:20:39 06/28/19 25 06/28/2024 CBC panel - Blood by Autom ated count hemoglobin [mass/volume ] in blood 12.8 g/dL low: 11.9g/ dLhigh : 15.8g/ dL Hemog lobin 12.8 11.9 - 15.8 g/dL 06/28 4:47 AM [email or web address] Not Available Not Available 07/14/2024 03:20:39 06/28/19 25 06/28/2024 CBC panel - Blood by Autom ated count hematocrit [volume fraction] of blood by automated count 38.4 % low: 34.8%h igh: 46.1% Hemat ocrit 38.4 34.8 - 46.1 % 06/28 4:47 AM [employer] [email or web address] LABOR ATORY Not Available Not Available 07/14/2024 03:20:39 06/28/19 25 06/28/2024 CBC panel - Blood by Autom ated count MCV [entitic volume] by automated count 95.8 fL low: 80fLhi gh: 98fL MCV 95.8 80.0 - 98.0 fL 06/28 4:47 AM [facility] Not Available Not Available 07/14/2024 03:20:39 06/28/19 25 06/28/2024 CBC panel - Blood by Autom ated count MCH [entitic mass] by automated count 31.9 pg low: 26.7pg high: 33.6pg MCH 31.9 26.7 - 33.6 pg 06/28 4:47 AM [facility] Not Available Not Available 07/14/2024 03:20:39 06/28/19 25 06/28/2024 CBC panel - Blood by Autom ated count MCHC [mass/volume ] by automated count 33.3 g/dL low: 31.7g/ dLhigh : 36.3g/ dL MCHC 33.3 31.7 - 36.3 g/dL 06/28 4:47 AM [facility] Not Available Not Available 07/14/2024 03:20:39 06/28/19 25 06/28/2024 CBC panel - Blood by Autom ated count erythrocyte distribution width [ratio] by automated count 12.1 % low: 11.3%h igh: 14.8% RDW-C V 12.1 11.3 - 14.8 % 06/28 4:47 AM [facility] Not Available Not Available 07/14/2024 03:20:39 06/28/19 25 06/28/2024 CBC panel - Blood by Autom ated count platelets [#/volume] in blood by automated count 226 text: 150 - 420 x10e9/ L Plate let Count 226 150 - 420 x10E9 /L 06/28 4:47 AM [facility] [employer] Not Available Not Available 07/14/2024 03:20:39 06/28/19 25 06/28/2024 CBC panel - Blood by Autom ated count platelet mean volume [entitic volume] in blood by automated count 8.5 fL low: 7.8fLh igh: 11.4fL MPV 8.5 7.8 - 11.4 fL 06/28 4:47 AM [facility] [employer] AT[facility] Not Available Not Available [...] 25.0 - 40.0 ug/mL 06/28 5:06 AM [facility] Not Available Not Available 07/14/2024 03:20:39 06/28/1906/28/2024 Vanco mycin [Mass /volu me] in Serum or Plasm a --pea k interpretati on and review of laboratory results Abnorm al Not Available Not Available 03:20:39 07/12/1907/14/2024 Bacte tara ident ified in Urine by Cultu re bacteria identified in urine by culture No growth (<100 CFU/mL ) Cultu re Urine No growt h (<100 CFU/m L) SHIMA 07/14 3:51 AM [facility] [employer] Not Available Not Available 07/15/2024 12:44:55 07/12/19 25 07/14/2024 Bacte tara ident ified in Urine by Cultu re interpretati on and review of laboratory results Normal Not Available Not Available 07/02 12:44:55 07/29/19 25 07/29/2024 Urina lysis panel - Urine by Auto color UA Yellow text: straw, yellow Color UA Yello w Straw , Yello w 07/29 4:21 PM [facility] [employer] Not Available Not Available 08/08/2024 03:16:13 07/29/19 25 07/29/2024 Urina lysis panel - Urine by Auto clarity UA Slt Cloudy text: clear abnormal Joaquina ty UA Slt Mcdowell y (A) Clear 07/29 4:21 PM [facility] [employer] Not Available Not Available 08/08/2024 03:16:13 07/29/1907/29/2024 Urina lysis panel - Urine by Auto specific gravity UA 1.01 low: 1.005h igh: 1.03 Speci fic Gravi ty UA 1.010 1.005 - 1.030 07/29 4:21 PM [facility] [employer] [facility] Not Available Not Available 08/08/2024 03:16:13 07/29/19 25 07/29/2024 Urina lysis panel - Urine by Auto pH UA 6 pH low: 5pHhig h: 8pH pH UA 6.0 5.0 - 8.0 pH 07/29 4:21 PM [facility] [employer] Not Available Not Available 08/08/2024 03:16:13 07/29/19 25 07/29/2024 Urina lysis panel - Urine by Auto protein UA 2+ text: negati ve abnormal Prote in UA 2+ (A) Negat linwood 07/29 4:21 PM [facility] [employer] [facility] Not Available Not Available 08/08/2024 03:16:13 07/29/19 25 07/29/2024 Urina lysis panel - Urine by Auto glucose UA Negati ve text: negati ve Gluco se UA Negat linwood Negat linwood 07/29 4:21 PM [facility] [employer] Not Available Not Available 08/08/2024 03:16:13 07/29/19 25 07/29/2024 Urina lysis panel - Urine by Auto ketone UA Negati ve text: negati ve Keton e UA Negat linwood Negat linwood 07/29 4:21 PM [facility] [employer] Not Available Not Available 08/08/2024 03:16:13 07/29/19 25 07/29/2024 Urina lysis panel - Urine by Auto bilirubin UA Negati ve text: negati ve Bilir ubin UA Negat linwood Negat linwood 07/29 4:21 PM [facility] [employer] Not Available Not Available 08/08/2024 03:16:13 07/29/19 25 07/29/2024 Urina lysis panel - Urine by Auto blood UA 3+ text: negati ve abnormal Blood UA 3+ (A) Negat linwood 07/29 4:21 PM [facility] [employer] [facility] Not Available Not Available 08/08/2024 03:16:13 07/29/19 25 07/29/2024 Urina lysis panel - Urine by Auto nitrite UA Negati ve text: negati ve Nitri te UA Negat linwood Negat linwood 07/29 4:21 PM [facility] [employer] Not Available Not Available 08/08/2024 03:16:13 07/29/19 25 07/29/2024 Urina lysis panel - Urine by Auto leukocyte esterase 2+ text: negati ve abnormal Leuko cyte Adina ase 2+ (A) Negat linwood 07/29 4:21 PM [facility] [employer] [facility] Not Available Not Available 08/08/2024 03:16:13 07/29/19 25 07/29/2024 Urina lysis panel - Urine by Auto urobilinogen UA Negati ve text: negati ve mg/dL Urobi linog en UA Negat linwood Negat linwood mg/dL 07/29 4:21 PM [facility] [employer] [facility] Not Available Not Available 08/08/2024 03:16:13 07/29/19 25 07/29/2024 Urina lysis panel - Urine by Auto RBC UA >100 text: none seen, 0-2, 3-5 /hpf abnormal RBC UA >100 (A) None Seen, 0-2, 3-5 /HPF 07/29 4:21 PM [facility] [facility] Not Available Not Available 08/08/2024 03:16:13 07/29/1907/29/2024 Urina lysis panel - Urine by Auto WBC UA 21-50 text: none seen, 0-5 /hpf abnormal WBC UA 21-50 (A) None Seen, 0-5 /HPF 07/29 4:21 PM [facility] [facility] Not Available Not Available 08/08/2024 03:16:13 07/29/1907/29/2024 Urina lysis panel - Urine by Auto bacteria UA Trace text: none /hpf abnormal Bacte tara UA Trace (A) None /HPF 07/29 4:21 PM [facility] [employer] [facility] Not Available Not Available 08/08/2024 03:16:13 07/29/19 25 07/29/2024 Urina lysis panel - Urine by Auto squamous epithelial cells UA 0-2 text: none seen, 0-2, 3-5 /hpf Squam ous Epith elial Cells UA 0-2 None Seen, 0-2, 3-5 /HPF 07/29 4:21 PM [facility] [employer] [facility] Not Available Not Available 08/08/2024 03:16:13 07/29/1907/29/2024 Urina lysis panel - Urine by Auto mucus UA 1+ text: /lpf Mucus UA 1+ /LPF 07/29 4:21 PM [facility] [employer] [facility] Not Available Not Available 08/08/2024 03:16:13 07/29/1907/29/2024 Urina lysis panel - Urine by Auto yeast budding UA Few text: none /hpf abnormal Yeast Buddi ng UA Few (A) None /HPF 07/29 4:21 PM [facility] [employer] [facility] Not Available Not Available 08/08/2024 03:16:13 07/29/1907/29/2024 Urina lysis panel - Urine by Auto calcium oxalate UA Occasi onal text: none /hpf abnormal Calci um Oxala te UA Occas ional (A) None /HPF 07/29 4:21 PM [facility] [employer] [facility] Not Available Not Available 08/08/2024 03:16:13 07/29/19 25 07/29/2024 Urina lysis panel - Urine by Auto Unknown Analyte Lab Status , Cultur e Reflex Indica jose angel. Lab Statu s, Cultu re Refle x Indic ated. Not Available Not Available 08/08/2024 03:16:13 07/29/19 25 07/29/2024 Urina lysis panel - Urine by Auto interpretati on and review of laboratory results Abnorm al Not Available Not Available 03:16:13 07/29/19 25 07/31/2024 Bacte tara ident ified in Urine by Cultu re bacteria identified in urine by culture No growth (<100 CFU/mL ) Cultu re Urine No growt h (<100 CFU/m L) SHIMA 07/31 2:35 AM [employer] Not Available Not Available 08/08/2024 03:13:58 07/29/19 25 07/31/2024 Bacte tara ident ified in Urine by Cultu re interpretati on and review of laboratory results Normal Not Available Not Available 07/30 03:13:58 07/29/19 25 08/22/2024 Fungu s ident ified in [place] te by Cultu re microorganis m identified in specimen by culture Modera te Candid a glabra ta abnormal Cultu re Moder ate Shruti da glabr francois (A) SHIMA 08/22 7:43 AM [facility] Not Available Not Available 08/22/2024 11:33:24 07/29/19 25 08/22/2024 Fungu s ident ified in [place] te by Cultu re fungus identified in specimen by fungus stain Rare Yeast abnormal Fungu s Stain Rare Yeast (A) 08/22 7:43 AM CDT [facility] Not Available Not Available 08/22/2024 11:33:24 07/29/19 25 08/22/2024 Fungu s ident ified in [place] te by Cultu re interpretati on and review of laboratory results Abnorm al Not Available Not Available 11:33:24 08/06/19 25 08/05/2024 Creat inine [Mass /volu me] in Blood creatinine [mass/volume ] in blood 0.54 mg/dL low: 0.7mg/ dLhigh : 1.2mg/ dL low Creat inine POCT 0.54 (L) 0.70 - 1.20 mg/dL 08/05 2:04 PM [facility] [employer] [facility] Not Available Not Available 08/08/2024 03:16:14 08/06/1908/05/2024 Creat inine [Mass /volu me] in Blood glomerular filtration rate/1.73 sq M.predicted [volume rate/area] in serum, plasma or blood by creatinine-b ased formula (CKD-epi 2020) text: >=90 mL/min /1.73 m2 eGFR >90 >=90 mL/mi n/1.7 3 m2 08/05 2:04 PM [facility] [employer] Not Available Not Available 08/08/2024 03:16:14 08/06/1908/05/2024 Creat inine [Mass /volu me] in Blood interpretati on and review of laboratory results Abnorm al Not Available Not Available 03:16:14 08/18/1908/18/2024 UA/M W/RFL X CULTU RE, ROUTI NE specific gravity 1.008 1.005- 1.030 Not Available [facility] ([facility]) [address] [place], [address], 08/19/2024 06:20:28 08/18/1908/18/2024 UA/M W/RFL X CULTU RE ROUTI NE pH 7.0 5.0-7. 5 Not Available [facility] ([facility]) [address] [place], [address], 08/19/2024 06:20:28 08/18/19 25 08/18/2024 UA/M W/RFL X CULTU RE ROUTI NE urine-color YELLOW yellow Not Available [facility] ([facility]) [address], [place], [address], 08/19/2024 06:20:28 08/18/19 25 08/18/2024 UA/M W/RFL X CULTU RE ROUTPhoebe NE appearance CLEAR clear Not Available [facility] ([facility]) [address], [place], [address], 08/19/2024 06:20:28 08/18/19 25 08/18/2024 UA/M W/RFL X CULTU RE ROUTI NE WBC esterase 1+ negati ve abnormal Not Available [facility] ([facility]) [address], [place], [address], 08/19/2024 06:20:28 08/18/19 25 08/18/2024 UA/M W/RFL X CULTU RE ROUTPhoebe NE protein NEGATI VE negati ve/tra ce Not Available [facility] ([facility]) [address], [place], [address], 08/19/2024 06:20:28 08/18/19 25 08/18/2024 UA/M W/RFL X CULTU RE ROUTI NE glucose NEGATI VE negati ve Not Available [facility] ([facility]) [address], [place], [address], 08/19/2024 06:20:28 08/18/19 25 08/18/2024 UA/M W/RFL X CULTU RE, ROUTI NE ketones NEGATI VE negati ve Not Available [facility] ([facility]) [address], [place], [address], 08/19/2024 06:20:28 08/18/19 25 08/18/2024 UA/M W/RFL X CULTU RE, ROUTI NE occult blood NEGATI VE negati ve Not Available [facility] ([facility]) [address], [place], [address], 08/19/2024 06:20:28 08/18/19 25 08/18/2024 UA/M W/RFL X CULTU RE, ROUTI NE bilirubin NEGATI VE negati ve Not Available [facility] ([facility]) [address], [place], [address], 08/19/2024 06:20:28 08/18/19 25 08/18/2024 UA/M W/RFL X CULTU RE, ROUTI NE urobilinogen ,semi-qn 0.2 mg/dL 0.2-1. 0 Not Available [facility] ([facility]) [address] [place], [address], 08/19/2024 06:20:28 08/18/19 25 08/18/2024 UA/M W/RFL X CULTU RE, ROUTI NE nitrite, urine NEGATI VE negati ve Not Available [facility] ([facility]) [address], [place], [address], 08/19/2024 06:20:28 08/18/19 25 08/18/2024 UA/M W/RFL X CULTU RE, ROUTI NE microscopic examination SEE BELOW: Micro scopi c was indic ated and was perfo rmed. Not Available [facility] ([facility]) [address], [place], [address], 08/19/2024 06:20:28 08/18/19 25 08/18/2024 UA/M W/RFL X CULTU RE, ROUTI NE urinalysis reflex COMMEN T This speci men has refle xed to a Urine Cultu re. Not Available [facility] ([facility]) [address] [place], [address], 08/19/2024 06:20:28 03/07/20 24 03/07/2024 LDCT, chest , for lung cance r scree derek No observ ation record ed. [email or web address] [facility] [address] [place], [address], 03/17/2024 09:49:34 03/07/20 24 03/07/2024 XR, shoul nino No observ ation record ed. [facility] [address] [place], [address], 07/17/2024 15:59:29 03/07/20 24 03/07/2024 XR, ribs, bilat eral No observ ation record ed. [facility] [address] [place], [address], 07/17/2024 15:59:30 03/11/20 24 03/07/2024 XR, ribs, bilat eral No observ ation record ed. [facility] [address] [place], [address], 07/17/2024 15:59:30 04/04/20 24 03/31/2024 PFT, compl ete No observ ation record ed. [facility] [address] [place], [address], 04/07/2024 12:21:07 06/25/19 25 06/25/2024 CT, abdom en + pelvi s, w/ contr ast No observ ation record ed. [email or web address] [place], [address], 06/27/2024 10:26:23 Result Notes None recorded. Problems Name Problem SNOMED Code Status Onset Date Resolution Date Notes Provider Name and Address Organization Details Recorded Time Essential hypertensi on 27775753 Active 2018 Not Available [facility] 4 06:47:22 Hyponatrem ia 60109843 Active 2018 Not Available [facility] 4 06:47:22 Hyperlipid emia 83255662 Active 2018 Not Available [facility] 4 06:47:22 Carpal tunnel syndrome 00358223 Active 2018 Not Available [facility] 4 06:47:22 Pain of right shoulder joint 3720917777181 9100 Active 2018 Not Available [facility] 4 06:47:21 Type 2 diabetes mellitus 20761045 Active 2018 Not Available [facility] 4 06:47:22 Low back pain 746852093 Active 2018 Not Available [facility] 4 06:47:22 Neuropathy 399022146 Active 2019 Not Available [facility] 4 06:47:22 Restless legs 14624768 Active 2019 Not Available [facility] 4 06:47:22 Insomnia 798855006 Active 2019 Not Available [facility] 4 06:47:21 Under immunized 325675538 Active 2019 Not Available [facility] 4 06:47:22 Acute folliculit is 566348938 Active 2019 Not Available [facility] 4 06:47:21 Irritable bowel syndrome with diarrhea 567783610 Active 2019 Not Available [facility] 4 06:47:22 Acute pharyngiti s 364831763 Active 2019 Not Available [facility] 4 06:47:22 Allergic rhinitis 69486736 Active 2019 Not Available [facility] 4 06:47:22 Allergic conjunctiv itis 467997269 Active 2019 Not Available [facility] 4 06:47:22 Migraine 61198828 Active 2019 Not Available [facility] 4 06:47:22 Pain in right knee Active 2019 Not Available [facility] 4 06:47:22 Hypothyroi dism 10027233 Active 2019 Not Available [facility] 4 06:47:22 Depressive disorder 17567256 Active 2019 Not Available [facility] 4 06:47:22 Administra tion of viral vaccine Active 2020 Not Available [facility] 4 06:47:22 Screening for osteoporos is Active 2020 Not Available [facility] 4 06:47:22 Menopausal syndrome 293582995 Active 2020 Not Available [facility] 4 06:47:21 Diverticul itis 024622942 Active 2020 Not Available [facility] 4 06:47:22 Bronchitis 52382931 Active 2020 Not Available [facility] 4 06:47:22 Osteoarthr itis 471988726 Active 2020 Not Available [facility] 4 06:47:22 Edema of lower extremity 946859815 Active 2020 Not Available [facility] 4 06:47:21 Steatosis of liver 092018958 Active 2020 Not Available [facility] 4 06:47:22 Screening for malignant neoplasm of breast Active 2020 Not Available [facility] 4 06:47:22 Chest pain 09223396 Active 2020 Not Available [facility] 4 06:47:22 Cervical radiculopa thy 35534080 Active 2021 Not Available [facility] 4 06:47:22 Administra tion of tetanus vaccine Active 2021 Not Available [facility] 4 06:47:21 Sleep apnea 51881068 Active 2021 Not Available [facility] 4 06:47:22 Carotid atheroscle rosis 196510755 Active 2021 Not Available [facility] 4 06:47:22 HIV screening Active 2021 Not Available [facility] 4 06:47:21 Dysuria 68880283 Active 2021 Not Available [facility] 4 06:47:22 Disorder of urinary bladder 35121297 Active 2021 Not Available [facility] 4 06:47:22 Acute urinary tract infection 066557389 Active 2021 Not Available [facility] 4 06:47:22 Screening colonoscop y Active 2021 Not Available [facility] 4 06:47:22 Screening for malignant neoplasm of colon Active 2021 Not Available [facility] 4 06:47:22 Venous varices 219047903 Active 2021 Not Available [facility] 4 06:47:21 Incontinen ce 81931883 Active 2021 Not Available [facility] 4 06:47:22 Notes:Some problems listed i n Document: #[id number] could not be added to this patient's chart. Please review this document and add these problems to the patient's chart manually as needed. Problem Notes None recorded. Procedures Surgical History Date Name Laterality Status Provider Name and Address Organization Details Recorded Time 10/31/19 21 Date of Last Pap Smear completed Tiffany Samuel MA [facility] 10/30/2020 10:50:02 04/17/20 20 Date of Last Mammogram completed Tiffany Samuel MA [facility] 10/30/2020 10:34:12 06/01/18 85 hysterectomy completed [facility] 05/10/2018 11:03:09 06/01/18 85 Total hysterectomy completed EMMETT JOHNSON Attn: Accounting, [address] [place], [address], [facility] 10/30/2020 11:28:17 lumpectomy of right breast completed [facility] 05/10/2018 11:02:06 Appendectomy completed [facility] 05/10/2018 11:03:24 cholecystectomy completed [facility] 05/10/2018 11:03:38 repair of vault of vagina by vaginal approach completed Yara Carr MA [facility] 11/24/2023 14:44:51 insertion of peripherally inserted central catheter completed Yara Carr MA [facility] 08/17/2024 11:56:31 Imaging Results Imaging Date Name Status LastModified by [facility] Details LastModified Time 03/07/2024 LDCT, chest, for lung cancer screening completed [address] [place], [address], 03/17/2024 09:49:34 03/07/2024 XR, shoulder completed [facility] [address] [place], [address], 07/17/2024 15:59:29 03/07/2024 XR, ribs, bilateral completed [facility] [address] [place], [address], 07/17/2024 15:59:30 03/07/2024 XR, ribs, bilateral completed [facility] [address] [place], [address], 07/17/2024 15:59:30 03/31/2024 PFT, complete completed [facility] [address] [place], [address], 04/07/2024 12:21:07 06/25/2024 CT, abdomen + pelvis, w/ contrast completed [address] [place], [address], 06/27/2024 10:26:23 Procedure Notes None recorded. Medical Equipment None Reported. Allergies Allergen ID Allergen Name Allergen Category Reaction Reaction Severity Criticality Documentation Date Start Date Code Code System Note Provider Name and Address Organization Details Recorded Time 356642 codeine medicatio n Not available Not available Not available 06/23/20192023 2670 RxNorm freez ing cold with chill s Not Available Not Available Not Available 635291 baclofen medicatio n Not available Not available Not available 06/23/20192023 1292 RxNorm Not Available Not Available Not Available 015089 cyclobenz aprine medicatio n Not available Not available Not available 03/30/2024 77674 RxNorm Not Available Not Available Not Available Medications Name Sig Start Date Stop Date Status Note LastModified by Organization Details LastModified Time cyclobenz aprine 10 mg tablet Take 1 tablet every day by oral route at bedtime for 30 days. 03/07 completed Not Available Not Available Not Available amoxicill in 500 mg capsule 08/17 completed Not Available Not Available Not Available pramipexo le 1 mg tablet 09/25 completed Not Available Not Available Not Available metformin 500 mg tablet TAKE 1 TABLET BY MOUTH TWICE DAILY active Not Available Not Available No t Available gabapenti n 600 mg tablet TAKE 1 TABLET BY MOUTH THREE TIMES DAILY active Not Available Not Available No t Available doxycycli ne hyclate 100 mg capsule TAKE [...] Available clobetaso l 0.05 % topical cream 08/17 completed Not Available Not Available Not Available olanzapin e 10 mg tablet Take [...] Not Available Not Available No t Available ciproflox acin 500 mg tablet TAKE 1 TABLET BY MOUTH EVERY 12 HOURS FOR 7 DAYS 08/17 completed Not Available Not Available Not Available sulfameth oxazole 800 mg-trimet hoprim 160 [...] Available No t Available aspirin 81 mg tablet,de layed release TAKE [...] Not Available Not Available No t Available methylpre dnisolone acetate 80 mg/mL suspensio n for injection Take 1 mL by injectio n route for 1 day. 04/30 completed Not Available Not Available Not Available meloxicam 7.5 mg tablet 03/15 completed Not Available Not Available Not Available levothyro xine 88 mcg tablet TAKE 1 TABLET BY MOUTH EVERY DAY active Not Available Not Available No t Available estradiol 1 mg tablet TAKE 1 [...] Not Available No t Available alcohol swabs Apply 1 pad every day by topical route for 30 days. 2024 active Not Available Not Available Not Avai lable estradiol 0.5 mg tablet TAKE 1 TABLET [...] completed Not Available Not Available Not Available delmar garza (contrace ptive) 0.35 mg tablet TAKE 1 [...] tablet TAKE 1 TABLET BY MOUTH EVERY MORNING. FOLLOW PACKET INSERT active Not Available Not Available No t Available glipizide 5 mg tablet 09/20 completed Not [...] day by oral route for 30 days. 09/154 completed Not Available Not Available Not Available nitrofura ntoin monohydra te/macroc rystals 100 mg capsule TAKE 1 CAPSULE BY MOUTH EVERY 12 HOURS FOR 5 DAYS 08/17 completed Not Available Not Available Not Available trospium 20 mg tablet active Not [...] Not Available Not Available No t Available darifenac in ER 15 mg tablet,ex tended release 24 hr 11/23 completed Not Available Not Available Not Available Fish Oil 11/23 completed Not Available Not Available Not Available aripipraz ole 2 mg tablet 10/09 completed Not Available Not Available Not Available cholecalc iferol (vitamin D3) 25 mcg (1,000 unit) tablet two tabs po bid 08/17 completed Not Available Not Available Not Available calcium 600 mg (as carbonate )-vitamin D3 10 mcg (400 unit) tablet TAKE 1 TABLET BY MOUTH TWICE DAILY 08/17 completed Not Available Not Available Not Available hydrochlo rothiazid e 12.5 mg tablet TAKE [...] Not Avai lable OneTouch Verio test strips TEST BLOOD SUGAR EVERY MORNING active Not Available Not Available No [...] Not Available Not Available Not Avai lable Linzess 72 mcg capsule 09/20 completed Not Available Not Available Not Available Trelegy Ellipta 100 mcg-62.5 mcg-25 mcg powder for [...] Available Vitals Date Recorded Body height Body temperature Pain severity - 0-10 verbal numeric rating [Score] - Reported Body mass index (BMI) Body weight Heart rate Systolic blood pressure Diastolic blood pressure Provider Name and Address Organization Details Last Updated DateTime 4 172.72 cm 97.5 [degF] 4 23.6 kg/m2 59625.8 2 g 89 /min 112 mm[Hg] 53 mm[Hg] Nevin LACEY Sommer [facility] 4 09:59:00 Date Recorded Body height Provider Name an d Address Organization Details Last Updated DateTime 04/15/2024 172.72 cm Tobi LACEY Young [facility] 2023 16:36:39 Date Recorded Body height Body temperature Respiratory rate Oxygen saturation Oxygen saturation in Arterial blood by Pulse oximetry Heart rate Systolic blood pressure Diastolic blood pressure Provider Name and Address Organization Details Last Updated DateTime 4 172.72 cm 97.9 [degF] 18 /min 92 % 92 % 106 /min 130 mm[Hg] 58 mm[Hg] Fatmata Delong LPN [facility] 4 10:37:02 Date Recorded Body height Heart rate Body temperature Pain severity - 0-10 verbal numeric rating [Score] - Reported Systolic blood pressure Diastolic blood pressure Provider Name and Address Organization Details Last Updated DateTime 5 172.72 cm 104 /min 97.9 [degF] 0 139 mm[Hg] 65 mm[Hg] Alia Zavala MA [facility] 5 11:20:26 Date Recorded Body height Heart rate Oxygen saturation Oxygen saturation in Arterial blood by Pulse oximetry Oxygen saturation Oxygen saturation in Arterial blood by Pulse oximetry Systolic blood pressure Diastolic blood pressure Provider Name and Address Organization Details Last Updated DateTime 5 172.72 cm 97 /min 85 % 85 % 92 % 92 % 122 mm[Hg] 70 mm[Hg] Yara Carr MA [facility] 5 11:58:12 Social History Question Answer Notes LastModified by Organizat ion Details LastModified Time Tobacco Smoking Status Current Every Day Smoker Chanda pinon [facility] 05/10/2018 10:59:42 Do You Have An Advance [...] Do You Have A Medical Power Of Skidder? No [email or web address] Information not available 12/16/2023 What Was The Date Of Your Most Recent Tobacco Screening? 08/17/2024 Information not available 08/17/2024 How Many Children Do You Have? 1 [...] Anxious, Or Unable To Sleep At Night)? [id number] Information not available 09/13/2020 Do You Use Any Illicit Or Recreational Drugs? No Information not available 09/13/2020 Do You Use Sunscreen Routinely? No Information not available 09/22/2019 Has Tobacco Cessation Counseling Been Provided? Yes [email or web address] Information not available 12/25/2021 On What Date Was Tobacco Cessation Counseling Provided? 08/17/2024 Information not available 08/17/2024 Do You Or Have You Ever Used [...] available 09/20 11:49:02 Medical History Condition Response Anxiety Disorder N Diabetes Y High Blood Pressure Y Atrial Fibrillation N Acid Reflux (GERD) N Cancer Thyroid Problems Y Blood Clots N Allergies Y Asthma N Depression Y COPD N Anemia Y High Cholesterol Y Heart Attack ([place]) N Heart Failure N Gynecological History Statement/Question Response [...] (COVID-19) vaccine, UNSPECIFIED 1 completed Not Available [facility] 06/11/2023 06:47:25 zoster recombinant 1 completed Not Available [facility] 06/11/2023 06:47:25 COVID-19, mRNA, LNP-S, PF, 100 mcg/0.5mL dose or 50 mcg/0.25mL dose 1 completed Not Available [facility] 06/11/2023 06:47:25 Influenza, split virus, quadrivalent, preservative 1 completed Not Available [facility] 06/11/2023 06:47:25 pneumococcal, unspecified formulation 1 completed Not Available [facility] 06/11/2023 06:47:25 COVID-19, mRNA, LNP-S, PF, 100 mcg/0.5mL dose or 50 mcg/0.25mL dose 1 completed Not Available [facility] 06/11/2023 06:47:25 Tdap 2 completed Misa Ruelas [place] null, [place] [facility] 08/22/2021 11:26:57 COVID-19, mRNA, LNP-S, PF, 100 mcg/0.5mL dose or 50 mcg/0.25mL dose 2 completed LACEY Pham, [place] [facility] 09/23/2021 12:28:25 Influenza, split virus, quadrivalent, preservative 2 completed Edmond Carlin PA-C Attn: Accounting[address] [facility], [place], [address], [place] [facility] 03/13/2022 14:55:38 pneumococcal polysaccharide PPV23 2 completed Edmond Carlin PA-C Attn: Accounting[address] [facility], [place], [address], [place] [facility] 03/13/2022 14:55:38 Pneumococcal conjugate PCV20, polysaccharide [id number] conjugate, adjuvant, PF 2 completed Jeff Cook MD Attn: Accounting[address] [facility], [place], [address], [place] [facility] 04/30/2022 13:22:09 COVID-19, mRNA, LNP-S, bivalent, PF, 50 mcg/0.5 mL or 25mcg/0.25 mL dose 3 completed Dee Dee Briggs RN null, [place] - [facility] 06/11/2022 11:06:19 Pneumococcal conjugate PCV20, polysaccharide [id number] conjugate, adjuvant, PF 2 completed Yara Carr MA null, [place] [facility] 07/07/2022 10:08:27 Influenza, high-dose, trivalent, PF 4 completed Yara Carr MA null, [place] [facility] 02/26/2024 11:58:32 Past Encounters Encounter ID Performer Location Encounter Start Date Encounter Closed Date Diagnosis/Indication Diagnosis SNOMED-CT Code Diagnosis ICD10 Code Diagnosis Note [id number] [address] [phone] 05/10/2018 10:39:28 05/11/2018 09:08:59 Gynecologic examination 69159930 Z01.419 MMG up to date. If PAP normal, no further PAPs needed. [id number] Edmond Carlin PA-C [facility] (Adult Med) [address] [place] [id number] 0 05/18/2019 11:36:31 05/18/2019 13:22:57 Essential hypertension 81779221 I10 Hyponatremia 73327483 E8 7.1 Hyperlipidemia 94562705 E78.5 [id number] [facility] ([facility] [address] [place] [address] [id number] 06/23/2019 13:47:10 06/23/2019 15:24:48 Type 2 diabetes mellitus 35465054 E11.9 Low back pain 121213661 M54.5 Hyperlipidemia 46711347 E78.5 Essential hypertension 29827131 I10 Neuropathy 907855090 G62 .9 Insomnia 324250727 G47.0 0 Restless legs 55825343 G 25.81 Pain of ri ght shoulder joint 3746767228 8307285 M25.511 Under immunized 66173981 8 Z28.3 [id number] [facility] ([facility]ult [facility]) [address] [place] [address] [id number] 0 08/24/2019 11:35:10 08/24/2019 11:59:38 Acute folliculitis 222058686 L73.9 right lower leg ..... Type 2 stephanie betes mellitus 85149778 E11.9 Insomnia 268586942 G47.0 0 Low back pain 615524106 M54.5 Restless legs 30532274 G 25.81 Hyperlipidemia 99978991 E78.5 Essential hypertension 38481684 I10 [id number] EMMETT JOHNSON (CELL MANAGER) [address] [place] [address] [phone] 0 09/22/2019 10:29:14 09/23/2019 10:59:14 Hypothyroidism 78694765 E03.9 Will refill medication s prescribed to patient at discharge. Recommend repeat TSH in 1 month. Advised pt follow up with PCP for further management . Menopausal syndrome 1237 08030 N95.9 Pt started on progestero ne and estradiol at discharge from hospital. Will obtain hospital records. Symptoms improved with treatment. Will continue as prescribed , no CI identified . Advised dressing in layers, keeping home cool, sleeping with fan, maintainin g healthy diet, limiting caffeine, alcohol, and spicy foods, and exercising regularly. RTC in 3 months to reassess. [id number] [facility] ([facility]ult [facility]) [address] [place] [address] [id number] 0 09/26/2019 09:54:16 09/26/2019 12:33:42 Low back pain 948335058 M54.5 Type 2 stephanie betes mellitus 26351248 E11.9 Restless legs 00732222 G 25.81 Essential hypertension 92162713 I10 Hyperlipidemia 39481390 E78.5 Insomnia 455025695 G47.0 0 Neuropathy 133861366 G62 .9 [id number] [facility] (Adult Med) [address] [place] [address] [id number] 11/21/2019 08:07:15 11/21/2019 12:38:03 Essential hypertension 77925090 I10 Hyperlipidemia 53996166 E78.5 Insomnia 154518676 G47.0 0 Low back pain 747118490 M54.5 Neuropathy 960648428 G62 .9 Restless legs 63749710 G 25.81 Type 2 stephanie betes mellitus 02578223 E11.9 Irritable bowel syndrome with diarrhea 240935552 K58.0 [id number] [facility] (Adult Med) [address] [place] [address] [id number] 01/31/2020 09:04:03 02/03/2020 09:33:25 Essential hypertension 83506500 I10 Hyperlipidemia 79473932 E78.5 Insomnia 147428920 G47.0 0 Type 2 stephanie betes mellitus 88295362 E11.9 Restless legs 47955663 G 25.81 Neuropathy 649864560 G62 .9 Low back pain 710588360 M54.5 Migraine 20926970 G43.90 9 Allergic rhinitis 549780 04 J30.9 Allergic conjunctivitis 889180894 H10.13 [id number] [facility] ([facility]ult [facility]) [address] [place] [address] [id number] 0 03/07/2020 08:23:45 03/07/2020 11:54:11 Type 2 diabetes mellitus 84454762 E11.9 Allergic rhinitis 931223 04 J30.9 Hypothyroidism 41409258 E03.9 Carpal servando mike syndrome 82111249 G56.03 Essential hypertension 49544111 I10 Hyperlipidemia 50941857 E78.5 Insomnia 399628566 G47.0 0 Irritable bowel syndrome with diarrhea 101249322 K58.0 Low back pain 037398585 M54.5 Neuropathy 577722360 G62 .9 Pain in right knee 95029 81713 49956 M25.561 Restless legs 43627509 G 25.81 [id number] EMMETT JOHNSON (CELL MANAGER) [address] [place] [address] [id number] 03/15/2020 08:17:50 03/20/2020 11:13:50 Screening for malignant neoplasm of breast 230591291 Z12.31 Menopausal syndrome 1237 62722 N95.9 Pt started on progestero ne and estradiol about 6 months ago. Symptoms improved with treatment. Will continue as prescribed , no CI identified . Advised dressing in layers, keeping home cool, sleeping with fan, maintainin g healthy diet, limiting caffeine, alcohol, and spicy foods, and exercising regularly. Advised need to schedule mammogram and DEXA. RTC in 6 months. Screening for osteoporosis 877824977 Z13.480 [id number] [facility] ([facility]ult Med) [address] [place] [address] [id number] 04/09/2020 08:27:24 04/09/2020 12:33:10 Neuropathy 883616780 G62.9 Essential hypertension 19410645 I10 Hyperlipidemia 07622004 E78.5 Type 2 stephanie betes mellitus 37112058 E11.9 Hypothyroidism 89097303 E03.9 Allergic rhinitis 088517 04 J30.9 Insomnia 943607122 G47.0 0 Low back pain 048426708 M54.5 [id number] [facility] (Adult Med) [address] [place] [address] [id number] 0 05/21/2020 08:42:50 05/21/2020 16:14:46 Hypothyroidism 07004593 E03.9 Hyponatremia 79316289 E8 7.1 Hyperlipidemia 09026447 E78.5 Neuropathy 698322885 G62 .9 Type 2 stephanie betes mellitus 33689821 E11.9 Depressive disorder 3548 9007 F32.9 Allergic rhinitis 391208 04 J30.9 Essential hypertension 84916380 I10 Insomnia 767344744 G47.0 0 Low back pain 439885628 M54.5 Restless legs 78628709 G 25.81 Pain in right knee 90367 23235 64097 M25.200 [id number] [facility] (Adult Med) [address] [place] [address] [id number] 0 05/29/2020 10:51:05 05/29/2020 11:26:16 Low back pain 361998250 M54.5 [id number] [facility] ([facility]ult [facility]) [address] [place] [address] [id number] 0 06/25/2020 08:29:12 06/25/2020 11:56:11 Allergic rhinitis 72926540 J30.9 Depressive disorder 3548 9007 F32.9 Essential hypertension 45407045 I10 Hyperlipidemia 08580163 E78.5 Hypothyroidism 40733495 E03.9 Insomnia 127011079 G47.0 0 Low back pain 369858031 M54.5 Neuropathy 134127488 G62 .9 Type 2 stephanie betes mellitus 44834159 E11.9 Restless legs 79318682 G 25.81 [id number] [facility] ([facility]ult [facility]) [address] [place] [address] [id number] 0 07/24/2020 08:24:36 07/24/2020 14:02:50 Allergic rhinitis 50031503 J30.9 Essential hypertension 09643378 I10 Hyperlipidemia 41289189 E78.5 Hypothyroidism 87458683 E03.9 Insomnia 949542169 G47.0 0 Low back pain 517564881 M54.5 Neuropathy 896166407 G62 .9 Restless legs 74572959 G 25.81 Type 2 stephanie betes mellitus 33635478 E11.9 [id number] [facility] (Adult Med) [address] [place] [address] [id number] 0 08/09/2020 10:51:28 08/09/2020 12:10:31 Type 2 diabetes mellitus 35001173 E11.9 Restless legs 29763872 G 25.81 Neuropathy 228173061 G62 .9 Low back pain 817317756 M54.5 Hypothyroidism 66224660 E03.9 Hyperlipidemia 99095286 E78.5 Essential hypertension 82993656 I10 Depressive disorder 3548 9007 F32.9 Allergic rhinitis 680716 04 J30.9 Hyponatremia 99796374 E8 7.1 Carpal servando mike syndrome 52775997 G56.03 Pain of ri ght shoulder joint 4208844270 9004651 M25.511 Pain in right knee 30967 93078 74406 M25.944 [id number] [facility] (Adult Med) [address] [place] [address] [id number] 0 09/13/2020 08:13:58 09/13/2020 11:58:52 Allergic rhinitis 41581990 J30.9 Depressive disorder 3547 F32.9 Essential hypertension 82277498 I10 Hyperlipidemia 17578357 E78.5 Hypothyroidism 60840476 E03.9 Insomnia 495331434 G47.0 0 Low back pain 328435409 M54.5 Neuropathy 426150840 G62 .9 Restless legs 56779982 G 25.81 Type 2 stephanie betes mellitus 48141011 E11.9 Screening for osteoporosis 388712503 Z13.820 Under immunized 99240822 8 Z28.3 [id number] EMMETT JOHNSON (CELL MANAGER) [address] [place] [address] [id number] 0 10/09/2020 07:50:23 10/12/2020 08:20:43 Menopausal syndrome 203334573 N95.9 Menopausal symptoms nearly resolved and many of pt's symptom concerns are due to her thyroid issues. Given pt's age and increased ASCVD risk (22.6%), discussed tapering off of HRT. She is agreeable. Will discontinu e progestero ne and decrease estradiol to 0.5mg daily. Last mammogram 04/17/20 BIRADS 0. RTC in 3 months to reassess. Candidal intertrigo 2661 26450 B37.2 Pt reports rash in leg folds and requests refill on antifungal s. Advised to keep area clean and dry. [id number] [facility] (Adult Med) [address] [place] [address] [phone] 0 10/15/2020 09:33:27 10/15/2020 12:15:10 Allergic rhinitis 55044559 J30.9 Depressive disorder 3548 9007 F32.9 Essential hypertension 43468144 I10 Hyperlipidemia 01514747 E78.5 Hyponatremia 92632843 E8 7.1 Hypothyroidism 99504783 E03.9 Insomnia 461403442 G47.0 0 Low back pain 655581901 M54.5 Neuropathy 963117465 G62 .9 Restless legs 79002167 G 25.81 Type 2 stephanie betes mellitus 42543420 E11.9 Menopausal syndrome 1237 44312 N95.9 [id number] [facility] (CELL MANAGER) [address] [place] [address] [id number] 0 10/30/2020 10:28:26 11/15/2020 11:03:56 Well woman monitoring status 597645097 Z76.89 -clinical breast examinatio n completed today, unremarkab le -cervical cancer screening UTD: last Pap 05/10/2018 , negative. No further screening indicated at this time. -mammogram completed 04/17/2020 BIRADS 0. -Educated osteoporos is prevention including calcium rich diet, weight bearing exercise. Will start supplement . Bone density previously ordered. Advised to call to schedule. -RTC in 1yr History of hysterectomy 661055680 Z90.711 ~30 years ago. Patient declined pelvic exam today. Cervical cancer risk low. Menopausal syndrome 1237 32412 N95.9 Menopausal symptoms nearly resolved and many of pt's symptom concerns are due to her thyroid issues. Given pt's age and increased ASCVD risk (22.6%), am tapering off of HRT. Previously discontinu ed progestero ne and decreased estradiol to 0.5mg daily. Will dc estradiol next month when script runs outs. [id number] [facility] (Adult Med) [address] [place] [address] [id number] 0 11/27/2020 09:37:17 11/27/2020 11:09:10 Neuropathy 525590361 G62.9 Hypothyroidism 70368575 E03.9 Essential hypertension 32827213 I10 Hyperlipidemia 28945892 E78.5 Insomnia 462576343 G47.0 0 Low back pain 152112384 M54.5 Restless legs 48172105 G 25.81 Type 2 stephanie betes mellitus 69494223 E11.9 [id number] EMMETT JOHNSON (CELL MANAGER) [address] [place] [address] 09035-375 0 01/09/2021 10:05:13 01/29/2021 08:15:58 Menopausal syndrome 807303326 N95.9 Given pt's age and increased ASCVD [...] smaller meals throughout the day. Smoking cessation. [id number] [facility] (Adult Med) [address] [place] [address] [id number] 01/29/2021 10:07:06 01/29/2021 13:04:50 Type 2 diabetes mellitus 27411418 E11.9 Neuropathy 538464599 G62 .9 Hyperlipidemia 26088822 E78.5 Essential hypertension 19010613 I10 Allergic rhinitis 054496 04 J30.9 Bronchitis 21707110 J40 Osteoarthritis 880122276 M19.90 Edema of l ower extremity 473947736 R60.0 Steatosis of liver 25547 1007 K76.0 Hyponatremia 30625754 E8 7.1 Hypothyroidism 97412634 E03.9 Insomnia 439259854 G47.0 0 Low back pain 264306532 M54.5 Restless legs 26974783 G 25.81 [id number] [facility] (Adult Med) [address] [place] [address] [id number] 0 03/15/2021 10:21:15 03/15/2021 12:22:09 Low back pain 693130221 M54.51 Allergic rhinitis 900593 04 J30.9 Depressive disorder 3548 9007 F32.9 Essential hypertension 04279399 I10 Hyperlipidemia 49021736 E78.5 Hypothyroidism 11524947 E03.9 Insomnia 265683408 G47.0 0 Neuropathy 278420553 G62 .9 Bronchitis 35173193 J40 Steatosis of liver 1007 K76.0 Type 2 stephanie betes mellitus 95058288 E11.9 Restless legs 67481841 G 25.81 Pain in right knee 19657 57679 63807 M25.561 Pain of ri ght shoulder joint 5558483267 2123333 M25.107 [id number] SIVAKUMAR iRojas (Adult Med) [address] [place] [address] 51559-473 0 05/10/2021 09:26:21 05/10/2021 10:32:09 Allergic rhinitis 34286782 J30.9 Depressive disorder 3548 9007 F32.9 Essential hypertension 19353343 I10 Hyperlipidemia 06193806 E78.5 Hyponatremia 45582042 E8 7.1 Hypothyroidism 21260741 E03.9 Insomnia 969458879 G47.0 0 Low back pain 235181160 M54.51 Neuropathy 225908234 G62 .9 Osteoarthritis 661790308 M19.90 Restless legs 35000828 G 25.81 Steatosis of liver 1007 K76.0 Type 2 stephanie betes mellitus 49616204 E11.9 Irritable bowel syndrome with diarrhea 162249241 K58.0 Edema of l ower extremity 716414279 R60.0 Chest pain 94740555 R07. 9 Bronchitis 08815062 J40 [id number] EMMETT JOHNSON (CELL MANAGER) [address] [place] [address] 62350-960 0 07/11/2021 12:20:57 07/24/2021 08:47:34 Menopausal flushing 962220875 N95.1 Given pt's age and increased ASCVD [...] throughout the day. Smoking cessation. RTC prn. [id number] SIVAKUMAR Riojas (Adult Med) [address] [place] [address] 98976-227 0 08/22/2021 09:46:29 08/23/2021 08:03:24 Allergic rhinitis 33833190 J30.9 Cervical radiculopathy 12825230 M54.12 Depressive disorder 3548 9007 F32.9 Essential hypertension 47450047 I10 Hyperlipidemia 31511258 E78.5 Hyponatremia 81647719 E8 7.1 Hypothyroidism 84502568 E03.9 Insomnia 784480758 G47.0 0 Low back pain 408377552 M54.51 Neuropathy 268973449 G62 .9 Osteoarthritis 731843611 M19.90 Steatosis of liver 49717 1007 K76.0 Type 2 stephanie betes mellitus 97280796 E11.9 Administra tion of tetanus vaccine 327677080 Z23 Sleep apnea 24535167 G47 .30 Carotid atherosclerosis 994037526 I65.29 Carpal servando mike syndrome 20227150 G56.03 HIV screening 632772257 Z11.4 Restless legs 87316431 G 25.81 [id number] SIVAKUMAR Riojas (Adult Med) [address] [place] [address] 68154-095 0 09/23/2021 10:33:39 09/24/2021 17:01:59 Cervical radiculopathy 28901341 M54.12 Dysuria 71993492 R30.9 Type 2 stephanie betes mellitus 35103939 E11.9 Sleep apnea 42564580 G47 .30 Restless legs 67548613 G 25.81 Neuropathy 241519322 G62 .9 Low back pain 618075585 M54.51 Insomnia 775249838 G47.0 0 Hypothyroidism 26513160 E03.9 Hyperlipidemia 12804742 E78.5 Essential hypertension 00455884 I10 Acute pharyngitis 756484 003 J02.9 Allergic rhinitis 685956 04 J30.9 Carotid atherosclerosis 001480636 I65.29 Depressive disorder 3548 9007 F32.9 Osteoarthritis 979915735 M19.90 [id number] LACEY Onofre (Peds) [address] [place] [address] 82186-515 0 09/23/2021 11:36:33 09/23/2021 17:56:16 Administration of SARS-CoV-2 mRNA vaccine 6890394237 Z23 [id number] EMMETT JOHNSON (CELL MANAGER) [address] [place] [address] 93242-258 0 10/16/2021 11:57:39 10/30/2021 09:33:39 Dysuria 90984967 R30.9 On second round of abx per PCP. UA today wnl. PE with severe candidal infection, likely cause of symptoms. See below for management . Cystocele 654029524 N81. 10 PE with grade 3 cystocele. Discussed options with patient including pelvic floor PT, pessary, and surgery. Pt opts for pessary at this time. Fitted today and ordered. Pt to return to clinic when device in office for education and insertion. Will also refer to urogyn for further eval and management . Candidal vulvovaginitis 19341022 B37.3 Will start Diflucan and topical nystatin. Advised to keep area clean and dry, change panty liners often and avoid wearing when able. RTC if symptoms persist. [id number] SIVAKUMAR Riojas (Adult Med) [address] [place] [address] 36722-758 0 10/25/2021 09:18:38 10/29/2021 09:56:57 Type 2 diabetes mellitus 29675976 E11.9 Neuropathy 100676572 G62 .9 Carotid atherosclerosis 618431217 I65.29 Allergic rhinitis 329265 04 J30.9 Cervical radiculopathy 71302088 M54.12 Disorder o f urinary bladder 82105910 N32.9 Essential hypertension 53623237 I10 Hyperlipidemia 07517979 E78.5 Hypothyroidism 57877077 E03.9 Insomnia 892992723 G47.0 0 Irritable bowel syndrome with diarrhea 868290831 K58.0 Low back pain 519298118 M54.51 Osteoarthritis 326870038 M19.90 Restless legs 95518743 G 25.81 Sleep apnea 43743215 G47 .30 [id number] EMMETT JOHNSON (CELL MANAGER) [address] [place] [address] 80857-373 0 12/13/2021 12:19:12 12/24/2021 16:10:23 Cystocele 533700298 N81.10 Pt has grade 3 cystocele. Initially presenting for pessary placement but she has appointmen t with urogyn specialist next week and is deferring placement until then. Pessary provided to patient. RTC prn. [id number] EMMETT JOHNSON (CELL MANAGER) [address] [place] [address] 19110-824 0 12/25/2021 11:08:16 12/30/2021 17:17:47 Pessary care 604466970 Z46.89 Pessary inserted in office today. Counseled pt on proper use and care. RTC in 1 month and prn. Cystocele 752555282 N81. 10 Pt has grade 3 cystocele. Advised that she reschedule d appointmen t with urogynecol ogist. Candidal intertrigo 2661 43404 B37.2 Rash noted in inguinal folds, refilled nystatin. Advised to keep area clean and dry. [id number] SIVAKUMAR Riojas (Adult Med) [address] [place] [address] 51354-647 0 01/10/2022 09:48:42 01/13/2022 15:02:58 Screening for malignant neoplasm of colon 460351696 Z12.11 Type 2 stephanie betes mellitus 21767162 E11.9 Restless legs 79076743 G 25.81 Osteoarthritis 896648126 M19.90 Carotid atherosclerosis 647420564 I65.29 Low back pain 652287302 M54.51 Allergic rhinitis 218625 04 J30.9 Cervical radiculopathy 50237739 M54.12 Essential hypertension 75546905 I10 Hyperlipidemia 47898507 E78.5 Hypothyroidism 40764046 E03.9 Insomnia 220385851 G47.0 0 Irritable bowel syndrome with diarrhea 828264500 K58.0 Neuropathy 502624867 G62 .9 [id number] SIVAKUMAR Riojas (Adult Med) [address] [place] [address] 27225-382 0 02/14/2022 09:27:37 02/17/2022 14:19:08 Neuropathy 783646105 G62.9 Osteoarthritis 773684013 M19.90 Type 2 stephanie betes mellitus 47017371 E11.9 Incontinence 56645879 R3 2 Allergic rhinitis 707170 04 J30.9 Carotid atherosclerosis 012196938 I65.29 Carpal servando mike syndrome 53772019 G56.03 Cervical radiculopathy 73144857 M54.12 Depressive disorder 3548 9007 F32.9 Essential hypertension 18128655 I10 Hyperlipidemia 92215275 E78.5 Hypothyroidism 97348096 E03.9 Insomnia 055974916 G47.0 0 Irritable bowel syndrome with diarrhea 505684308 K58.0 Low back pain 062214673 M54.51 Venous varices 448777309 I83.93 Steatosis of liver 56123 1007 K76.0 Sleep apnea 27540414 G47 .30 Restless legs 59196157 G 25.81 [id number] EMMETT JOHNSON (CELL MANAGER) [address] [place] [address] 90680-600 0 02/26/2022 11:14:27 03/03/2022 16:05:07 Pessary care 136847246 Z46.89 Pessary inserted in office today. Counseled pt on proper use and care. RTC in 1 month and prn. Cystocele 872479798 N81. 10 Pt has grade 3 cystocele. Advised that she reschedule appointmen t with urogynecol ogist. Candidal intertrigo 2661 22449 B37.2 Rash noted in inguinal folds, refilled nystatin. Advised to keep area clean and dry. [id number] SIVAKUMAR Riojas (Adult Med) [address] [place] [address] 85241-170 0 03/12/2022 09:36:45 03/13/2022 11:08:19 Acute pharyngitis 577243200 J02.9 Allergic rhinitis 833411 04 J30.9 Bronchitis 91010265 J40 Carotid atherosclerosis 142225415 I65.29 Carpal servando mike syndrome 65560029 G56.03 Chest pain 82567551 R07. 9 Depressive disorder 3548 9007 F32.9 Diverticulitis 106626563 K57.92 Dysuria 27826218 R30.9 Edema of l ower extremity 182394878 R60.0 Essential hypertension 96445116 I10 Hyperlipidemia 59022332 E78.5 Incontinence 49478604 R3 2 Low back pain 718320907 M54.51 Migraine 54471796 G43.90 9 Osteoarthritis 045564279 M19.90 Pain of ri ght shoulder joint 9619462636 3404992 M25.511 Restless legs 40257422 G 25.81 Steatosis of liver 81652 1007 K76.0 Type 2 stephanie betes mellitus 56044554 E11.9 Administra tion of influenza vaccine 13586434 Z23 Administra tion of pneumococcal vaccine 71627850 Z23 Nicotine dependence 5629 4008 Z87.068 [id number] MD Iram Hopson (Adult Med) [address] [place] [address] 23568-094 0 04/30/2022 10:30:56 05/02/2022 13:20:33 Smoker 40897057 F17.200 Advised her to quit smoking for thr good health and finav cial reasons. Environmental allergy 42 0254421 T78.49XA Will refill loratidine . Deficiency of vitamin D3 554356807 E55.9 wants to refill Vitamin D3. Administra tion of pneumococcal vaccine 19865341 Z23 She tolerated shot well. Screening for malignant neoplasm of colon 775380807 Z12.11 She agreed, for the referral. Administra tion of SARS-CoV-2 mRNA vaccine 4015147221 Z23 Will schedule. Well woman monitoring status 664297750 Z76.89 Will refill calcium. Type 2 stephanie betes mellitus 56716946 E11.65 Diabetic Diet, exercise and keep the weight down. has enough med for he type 2 DM. Aspirin pr ophylaxis declined 312229407 Z53.20 She refuses 04-30-2022 . Statin declined 38703545 0 Z53.20 She refuses 04-30-2022 . [id number] HALIMA Livingston (Peds) [address] [place] [address] 45491-730 0 06/11/2022 10:20:22 06/12/2022 13:25:09 Administration of SARS-CoV-2 mRNA vaccine 0372266765 Z23 [id number] MD Iram Hopson (Adult Med) [address] [place] [address] 58245-486 0 08/13/2022 09:58:06 08/14/2022 15:23:32 Female stress incontinence 22924371 N39.3 saw a urologist was told to block the vagina , she wants second opinion. Chronic ob structive pulmonary disease 22131330 J44.9 On oxygen and nebulizer with trellezy at home Smoker 53453289 F17.200 Advised her to quit smoking for thr good health and finav cial reasons. [id number] Jeff Cook MD [facility] (Adult Med) [address] [place] [address] 55647-876 0 01/19/2023 10:17:28 01/21/2023 15:01:03 Hernia of anterior abdominal wall 042830965 K43.9 Wants general surgeon referral, will order CT of abdomen to map out the extent of hernia. Onychomyco sis of toenails 279743106 B35.1 Will try anti fungal med . Peripheral vascular disease 616191420 I73.9 Will do the arterial doppler, Unsteady w hen standing 378845463 R26.81 Wants zoe for the scooter at [facility]. Ordered. Smoker 16078587 F17.200 Advised her to quit smoking for thr good health and finacial reasons. She is aware of cigarettes smoking can cause permanet emphysema, cancer of lung or throat , , or mouth and other diseases. Type 2 stephanie betes mellitus 81900140 E11.65 Diabetic Diet, exercise and keep the weight down. has enough med for he type 2 DM. on metformin. and aspirin. Diabetic p eripheral neuropathy 720623828 E11.40 On gabapentin . Dyslipidem ia due to type 2 diabetes mellitus 7228315076 02 E78.5 Low animal fat diet, fish oil, omega-3 acid ethyl adina . Colon canc er screening declined 8266521888 9109 Z53.20 She declined 37599-44. Statin declined 50715365 0 Z53.20 She refuses 11-30-2022 . Also today 01-19-23. [id number] MD Iram Wall (Adult Med) [address] [place] [address] 78928-304 0 09/16/2023 14:26:10 09/17/2023 16:20:58 Normal weight 79577569 Z68.20 Abnormal reflex 15274078 R29.2 Increased biceps reflex on left. Symptoms [...] management . Type 2 stephanie betes mellitus 90929492 E11.9 Essential hypertension 89908293 I10 Will return for fasting blood work. Blood pressure controlled . Continue present medication . Environmental allergy 42 1365307 T78.49XA Hypothyroidism 39881868 E03.9 Neuropathy 521742288 G62 .9 Well woman monitoring status 940964092 Z76.89 Peripheral vascular disease 324033986 I73.9 Sees specialist . Trying to quit smoking. Started cholestero l medication . Nicotine user 895397706 Z72.0 Trying to quit. Unable to tolerate patches. [id number] MD Iram Wall (Adult Med) [address] [place] [address] 24209-645 0 11/24/2023 14:27:16 11/30/2023 14:20:42 Body mass index less than 20 544401317 Z68.1 Psoriasis 9291108 L40.9 Psoriasis on elbows. Advised patient to use Clobetasol BID to affected area for no more than two weeks in a row. Then keep area moisturize d. Can use steroid cream periodical ly as needed. Should never use steroid cream on face or genital area. Urinary incontinence 165 117689 R32 Has had surgery and tried multiple medication s for incontinen ce. Would like to discuss self catheteriz ation to avoid frequent accidents. Will refer to Urology. Essential hypertension 18231743 I10 Has not been taking HCTZ. Blood pressure low in office but has been higher at home. Lower when needs more fluids. Will remain off HCTZ. Pain in toe 796533557 M7 9.675 Had injury to left toe. [...] is alsobeing referred to Podiatry. Hypertriglyceridemia 302 681199 E78.1 She takes fish oil daily. Menopause 158735142 Z78. 0 Take Calcium Citrate and Vitamin D daily. Carotid atherosclerosis 602760300 I65.29 Neuropathy 166896775 G62 .9 Hypothyroidism 38932375 E03.9 Environmental allergy 42 8862048 T78.49XA Type 2 stephanie betes mellitus 42293736 E11.9 Continue Metformin. Will order more strips so she can do fasting acu checks. Will be seeing Ophthalmol ogist this week. May need to increase her Metformin or add a diabetic medicine, which we will discuss further at follow up visit. Restless legs 93295441 G 25.81 Peripheral vascular disease 681756179 I73.9 Sees specialist . Trying to quit smoking. Started cholestero l medication . Spinal bee nosis in cervical region 62732497 M48.02 Has referral to neurosurge on. [id number] Mali Rashid MD [facility] [address] [address] 2 11/26/2023 14:48:56 12/01/2023 07:56:23 Nonexudative age-related macular degeneration 953745653 H35.3191 Type 2 stephanie betes mellitus without complication 591137038 E11.9 After-annelise ract not obscuring vision following extraction of cataract 76127145 H26.005 [id number] Hank Martinez MD [facility] (Adult Med) [address] [place] [address] 12/09/2023 10:13:47 12/10/2023 12:47:21 Body mass index 20-24 - normal 525665271 Z68.23 Skin finding 506279028 R 23.9 Concerned about the possibilit y [...] of the nail. I told her the charging car operator may need to remove the nail. I asked her to let me know what the charging car operator says. Has a follow up appointmen t with me. Nicotine user 180507883 Z72.0 Encouraged her to continue to work on quitting. Has been unable to tolerate patches. Vitamin D deficiency 347 98114 E55.9 Would like to go back to the higher dose of vitamin D. I will research if there are any concerns about that high of a dose. [id number] Nestor Smith MD [facility] [address] [place] [address] 12/16/2023 09:43:56 12/16/2023 15:13:53 Urinary incontinence 579294218 R32 [id number] [facility] [address] [place] [address] 01/25/2024 10:24:15 01/25/2024 12:22:30 Chronic obstructive pulmonary disease 62527720 J44.9 Will add trelegy ellipta, one puff daily and Albuterol HFA as needed. I will check PFTs, 6MWT, CBC, IgE, Nicotine dependence 5629 4008 F17.200 40 PYH , counseled to quit 5 min, will check LDCT Multiple n odules of lung 908718017 R91.8 LDCT Obstructiv e sleep apnea syndrome 04592247 G47.33 ON trilogy at night Allergic rhinitis 909146 04 J30.9 will add Singulair History of malignant neoplasm of uterine body 291838446 Z85.42 in 2605 [id number] Hank Martinez MD [facility] (Adult Med) [address] [place] [address] 02/26/2024 10:21:21 03/01/2024 11:03:08 Cervical myelopathy 933599761 G95.9 Patient is wheelchair bound. Has limited strength in extremitie s. Experienci ng limited dexterity in upper extremitie s. Would like to explore treatment options. Type 2 stephanie betes mellitus 11937505 E11.9 Hemoglobin A1C slightly improved from 8.2 to 7.9. Goal is 7.0. Will see if she would increase the Metformin by one pill a day and continue acu checks. Urinary incontinence 165 388022 R32 Urologist mentioned suprapubic catheter which she would like to pursue. Was referred to a specialist who said he won't do it. I will reach out to the urologist to see if we have other options. Chest wall pain 06071441 6 R07.89 Chest wall pain after fall. Get xray to check for rib fracture. Administra tion of influenza vaccine 36406602 Z23 Hypothyroidism 57726587 E03.9 Last TSH in October normal. Peripheral vascular disease 738948324 I73.9 Encouraged her to quit smoking. Taking high dose statin and aspirin. Tinea pedis 5763572 B35. 3 Sees charging car operator . [id number] Nestor Smith MD [facility] [address] [place] [address] 03/30/2024 09:45:41 03/30/2024 12:37:19 Mixed urinary incontinence 996641449 N39.46 Status post suprapubic tube placement. Visiting nurse to change the catheter 4 weeks. [id number] [facility] [address] [place] [address] 04/15/2024 16:33:38 04/19/2024 09:18:23 Suprapubic pain 477756227 R10.[address] [id number] [facility] [address] [place] [address] 04/18/2024 10:22:00 04/18/2024 14:15:54 Chronic obstructive pulmonary disease 64535515 J44.9 Will add trelegy ellipta( she's scared of it ) I will switch to Stiolto, one puff daily and Albuterol HFA as needed. PFTs showed moderate COPD and emphysema ( 2013), Nicotine dependence 5629 4008 F17.200 40 PYH , counseled to quit 5 min Multiple n odules of lung 050391010 R91.8 LDCT- 03/24, showed no suspicious nodules Obstructiv e sleep apnea syndrome 65675073 G47.33 ON trilogy at night Allergic rhinitis 621525 04 J30.9 will continue Singulair and Flonase, IgE and CBC WNL History of malignant neoplasm of uterine body 514541507 Z85.42 in 8040 [id number] Nestor Smith MD [facility] [address] [place] [address] 06/17/2024 11:08:00 06/17/2024 12:44:37 Urinary tract infectious disease 96057752 N39.0 Return to office 6 weeks after follow-up at [facility] [id number] Hank Martinez MD [facility] (Adult Med) [address] [place] [address] 08/17/2024 11:46:45 08/18/2024 10:50:37 Edema of lower extremity 068541293 R60.0 Patient recently took Daptomycin which can cause tubulointe rstitial nephritis. I will check a CMP for renal function and a UA. I will let her know the results. Advised her to avoid using cleaning wipes on legs and anything except soap and water because it could be caustic to the skin. Advised her to seek immediate medical attention if swelling gets worse or if she develops any new symptoms. Dyspnea 630293316 R06.00 Patient has been experienci ng some dyspnea and low O2 sat. She has a history of a neck injury and she has worked with PT to help her with her posture to help her breathing. In the exam room when she sat up straight her sat went up to 97% and her breathing improved. She has not been doing her exercises as much and not been lifting her head up as much because she was recently in the hospital for infection and has been fatigued. I asked her to work on this. Suprapubic urinary catheter in situ 684343589 Z96.0 Was recently hospitaliz ed for infection. Also continues to have some drainage. Health Concerns Section Related Observation LastModified by Organization Detai ls LastModified Time None Recorded Concern Status LastModified by Organization Details LastModified Time None Recorded Advance Directives Directive N: Payers Encounter Date Sequence Insurance Name Policy Number Policy Muonz Covered Member ID Munoz Member ID Guarantor Name 03/30/2024 1 [facility] (MEDICARE REPLACEMENT/AD VANTAGE - PPO) [id number] May Danielsro [id number] May Myers 03/30/2024 2 [place] May Myers [id number] May Danielsro 04/15/2024 1 [facility] (MEDICARE REPLACEMENT/AD VANTAGE - PPO) [id number] May Danielsro [id number] May Myers 04/15/2024 2 [place] Mya Myers [id number] May Danielsro 04/18/2024 1 [facility] (MEDICARE REPLACEMENT/AD VANTAGE - PPO) [id number] May Danielsro [id number] May Danielsro 04/18/2024 2 [place] May Danielsro [id number] May Danielsro 06/17/2024 2 [place] May Danielsro [id number] May Danielsro 06/17/2024 1 [place] May Myers [id number] May Myers 08/17/2024 2 [place] WHEN [place]ARE OR MEDICARE REPLACEMENT PRIMARY) May Myers [id number] May Danielsro 08/17/2024 1 [facility] (MEDICARE REPLACEMENT/AD VANTAGE - HMO) [id number] May Myers [id number] May yMers Notes Date Note Type Note Provider Name and Address Organization Details Recorded Time 03/30/2024 text/html Had suprapubic t ube placed at [facility]. Scant blood around insertion site now. Will have visiting nurse change SPT every month. Note minimal leakage noted when catheter is kinked. Nestor Smith MD [address] [place], [address], [place] 05/17/2024 15:19:30 04/15/2024 text/html Has suprapubic t ube placement in the [facility]. Told of non functioning bladder. Has problems with insurance. Has an appointment for follow-up over in [place]. Significant pain from the diversion. Does not want to go to the emergency room. Travel arrangements 72 hours in advance. Nestor Smith MD [address], [place], [address], [facility] 04/27/2024 10:14:30 04/18/2024 text/html Patient is here for follow up. She is scared from trelegy ellipta. Jamal Mendez MD [address], [place], [address], [facility] - [facility] 04/18/2024 10:51:00 06/17/2024 text/html has a appointmen t scheduled for next Thursday at [facility]. has not been able to get a visiting nurse scheduled. Has numerous emergency room visits to drain catheters and replace as needed. Fluid collected around bladder has been resolved. May need to set up monthly visit for cath change if needed. Nestor Smith MD [address], [place], [address], [place] 06/17/2024 11:44:48 08/17/2024 text/html here for yousuf aguilar lower extremity edema, day after finished ertapenem and daptomycin and heparin started noticing the swelling, finished injections Thursday and then had swelling in both lower extremities Thursday, gets better and worse depending on elevation, hurts to touch, lower extremities are erythematous today but she says they were not that way until she cleaned them with cleaning wipes today before her appointment, she was worried about urine getting on them from her urinary bag, lower extremities are tense, also notices that O2 sats are dropping, yesterday coughing a bit after being outside, feels like needs to clear chest at times, brings up thick sputum, at times feels anxious and when feels that way notices sats have dropped, has an issue with her cervical spine and frequently flexes her neck, has worked with physical therapy to keep her head up but that has been more difficult since she was recently in the hospital and is more fatigued, her recent hospitalization at [facility] was very stressful and she was not treated well Hank Martinez MD Attn: Accounting,[address], [place], [address], [facility] 08/17/2024 18:15:39 OBGyn Episode No OBEpisode recorded.
--- OUTSIDE RECORDS SUMMARY | 2024-08-23 12:44 | XMS_ITS ---
Author Organization [facility] Address [address] [place], [place] [id number] Care Team Providers Care Back Up Machine Operator Name Role Phone HORTENSIA BAKER Unavailable [phone] Kaye Martinez Unavailable Unavailable Allergies Allergen (clinical [...] Location Date Provider Diagnosis [facility] [place] [address] [place], [place] [id number] 03/03/2024 HORTENSIA BAKER Fungal infection of nail B35.1 ; Pain in left toe(s) M79.675 ; Pain in right toe(s) M79.674 ; Unspecified atherosclerosis of [place] arteries of extremities, bilateral legs I70.203 and [...] (ICD-10 - M79.674) 03/03/2024 Unspecified atherosclerosis of [place] arteries of extremities, bilateral legs (ICD-10 - [...] * RITIKA UGARTEDOB:1955 ( 68 yo F)Acc No.[id number]:03/03/2024 Patient: RITIKA VALDEZ Provider: Natasha Baker DPM :1955 A ge:68 Y S ex:Female Date:03/03/2024 Address:[address] [place] [address] Subjective: * Chief Complaints: * * General [...] M79.674 4 . U nspecified atherosclerosis of [place] arteries of extremities, bilateral legs - I70.203 5 . C ontusion of left great toe without damage to nail, subsequent encounter - S90.112D ? Plan: * Treatment: * Procedure Codes: * Follow Up: 9 weeks * Billing Information: * Visit Code: 46241 Office Visit, Est Pt., Level 3. * Procedure Codes: * Sign off status: Completed true * Provider: Natasha Baker DPM Date: 1 Generated for Bonnie moore/Davis/Benjamin on: 0 08/23/2024 12:43 PM CDT History and Physical Notes * HPI (History [...]
--- OUTSIDE RECORDS SUMMARY | 2024-08-23 12:44 | XMS_ITS ---
Author Organization [facility] Address [address] [place], [place] [id number] Care Team Providers Care Tobacco Stripping Machine Operator Name Role Phone HORTENSIA BAKER Unavailable [phone] Kaye Martinez Unavailable Unavailable REASON FOR VISIT *General care Encounters Encounter Location Date Provider Diagnosis [facility] [place] [address] [place], [place] [id number] 05/26/2024 HORTENSIA BAKER Plan Of Treatment No Information Progress Notes * RITIKA UGARTEDOB:1955 ( 68 yo F)Acc No.[id number]:05/26/2024 Patient: RTIIKA VALDEZ Provider: Natasha Baker DPM :1955 A ge:68 Y S ex:Female Date:05/26/2024 Address:[address] [facility] [facility] [facility] Subjective: * Chief Complaints: * 1 . *General care. * Medical History: Objective: * Vitals: Assessment: Plan: * Treatment: * Billing Information: * Visit Code: * Procedure Codes: * Electronic signature of HORTENSIA BAKER DPM on 08/23/2024 at 12:43 PM CDT Sign off status: Pending * Provider: Natasha Baker DPM Date: 07/27/2023 Generated for Printi ng/Fasatishg/eTransmitting on: 0 08/23/2024 12:43 PM CDT
--- OUTSIDE RECORDS SUMMARY | 2024-08-23 12:44 | XMS_ITS | Clinical Summary ---
Author Organization [facility] Address [address] [place] [phone] Care Team Providers Care Director Merit System Name Role Phone Jeff Cook MD Primary Care Provider [phone] Allergies Active Allergy Reactions Criticality Noted Date [...] 1 tablet (88 mcg total) by mouth rehab therapy manager before breakfast 3 Active losartan (COZAAR) 100 [...] by mouth daily before breakfast Active vit C,Y-Fe-usmso-loulou tein-zeaxan 250-90-40-1 mg capsule Take 1 capsule [...] before that. She has been seeing a Electronics Utility Worker and failed the pessary (couldn't hold it in). She has also been seeing an outside urologist who suggested surgery. She transferred care here to [facility] to have second opinion. Currently there [...] addressing these would be the answer for intermission coordinator treatment. If this is delayed and patient [...] on file Legal Sex Female 6:10 PM MOTOR LODGE CLERK Gender Identity Not on file Sexual Orientation Not on file Obstetrics History Last Filed Vital Signs Vital Sign Reading Time Taken Comments Blood Pressure 123/57 04/29/2023 2:58 AM MOTOR LODGE CLERK Pulse 80 04/29/2023 3:01 AM MOTOR LODGE CLERK reche cked Temperature 36.5 C (97.7 F) 04/29/2023 2:58 AM MOTOR LODGE CLERK Respiratory Rate 19 04/29/2023 8:14 AM MOTOR LODGE CLERK Oxygen Saturation 95% 04/29/2023 2:58 AM MOTOR LODGE CLERK Inhaled Oxygen Concentration - - Weight 72.8 kg (160 lb 7.9 oz) 04/16/2023 2:05 P M MOTOR LODGE CLERK Height 172.7 cm (5' 8 ) 04/16/2023 2:05 PM MOTOR LODGE CLERK Body Mass Index 24.4 04/16/2023 2:05 PM MOTOR LODGE CLERK Plan of Treatment Health Maintenance Due Date [...] history exists Medical Devices Implanted Type Area Clinical Product Specialist Device Identifier Shelf Expiration Date Model / Serial / Lot [employer] Upsylon 35.4cm Elongation Profile Lightweight Large Pore Low [id number] - Sn/A - [id number] Implanted:Qty: 1 on 04/27/2023 by Chinmay Bauer MD at [facility] Mesh N/A: Urethra [employer] [id number] 10/29/2025 [id number] / N/A / [id number] Insurance IDPA [facility] MEDICARE ADVANTAGE IDPA Advance Directives For more information, please contact: [phone] * Full Code (Latest Code Status on File) Date Activated Date Inactivated Comments 04/27/2023 3:58 PM 04/29/2023 3:59 PM Care Teams Director Merit System Relationship Specialty Start Date End Date Jeff Cook MD [address] [place] [id number] PCP - General Internal Medicine 08/25/22
--- OUTSIDE RECORDS SUMMARY | 2024-08-23 12:44 | XMS_ITS | CONTINUITY OF CARE DOCUMENT ---
Author Name danica mishra Address Unknown Organization [facility] Address [address] [place] [address] Phone [phone] Care Team Providers Care Hotel Attendant Name Role Phone Jose C Roberts MD Unavailable [phone] NGUYEN GUERRERO MD Unavailable [phone] NGUYEN GUERRERO MD Unavailable [phone] PROBLEMS Condition Status Date Provider Notes Chest [...] encounter Office Visit Jose C Roberts MD [facility] - In-person encounter Office Visit Jose C Roberts MD [facility] Preoperative cardiovascular examination - In-person encounter Office Visit Jose C Roberts MD [facility] Hypertension - In-person encounter Office Visit Jose C Roberts MD [facility] Chest painLeg edema, bilateralHypothyroidismHyperlipidemiaHTN essentialInsomniaNeuropathyTobacco abuse [...] patiño weight E&M 164 [lb_av] Valerie Dericnenfe [facility] height E&M 68 [in_i] Valerie Nikuenenfe [facility] Body Mass Index (Ratio) 26.00 kg/m2 Natividad Roberts MD blood pressure, diastolic 96 mm[Hg] Ca therine [place] blood pressure, systolic 128 mm[Hg] Cat herine [place] oxygen saturation, oximetry 95 % Elizabet Leland respiratory rate E&M 16 /min Catheri ne [place] pulse rate 69 /min Elizabet L[place] weight E&M 171 [lb_av] Elizabet [place] blood pressure, cuff size regular Ca therine [place] height E&M 68 [in_i] Elizabet [place] blood pressure, diastolic 70 mm[Hg] Li nkLogic [...] ation, patient education and counseling yes Elizabet Leland number of years as a smoker 45 a Elizabet [place] smoking history, tot al pack/day 1 Elizabet Leland cigarette use yes Elizabet [place] smoking status Current every day smoker C atherine [place] smoking/tobacco cess ation, patient education and counseling [...] Payer name Policy type / Coverage type [place] [employer] UHC MEDICARE COMPLETE HMO Other [id number] [facility] Medicaid 9 [id number] ADVANCE DIRECTIVES Name Date DISCUSSED - NO DECISION MADE TREATMENT PLAN Date Name Performer [id number],C,S econdary to sitting in the wheelchair and probably due to some degree of pulmonary hypertension due to smoking. Jose C Roberts MD [id number],S, Jose C Roberts MD [id number],S, B P today: 138/69 P rior BP: 140/81 (04/11/2022) Her updated medication list for this problem includes: Losartan 100 Mg Tablet (Losartan) ..... Take 1 tablet by mouth daily Amlodipine 5 Mg Tablet (Amlodipine) ..... Take 1 tablet by mouth every day Jose C Roberts MD [id number],S, Jose C Roberts MD [id number],S, P t tests came back okay. Her heart function was normal. She does not have any blood clots in her legs from her venous study. Jose C Roberts MD [id number],C,I n the absense of any Sx related to ACS, I think she is low risk for her surgery and is clear Jose C Roberts MD [id number],B,W ill check echo otherwise a venous ultrasound to rule out DVT in the legs Jose C Roberts MD [id number],S, Jose C Roberts MD [id number],S, B P today: 140/81 P rior BP: 128/96 (10/11/2021) Jose C Roberts MD [id number],C,T he Patient was reencouraged to stop smoking. Jose C Roberts MD [id number],S,Counseled reg arding cessation Linette Rutledge NP [id number],S, Linette phillips NP [id number],B, H er updated medication list for this problem includes: Losartan 100 Mg Tablet (Losartan) ..... Take 1 tablet by mouth daily Amlodipine 5 Mg Tablet (Amlodipine) ..... Take 1 tablet by mouth every day Linette Rutledge NP [id number],B,L ower ext venous and arterial studies normal. Edema improved. No further testing indicated at this time. Echo showed normal EF with diastolic dysfunction Linette Rutledge NP [id number],C,1 ppd, advise d to quit. Jose C Roberts MD [id number],C,will do echo Jose C Roberts MD [id number],C,w ill do venous doppler reflux to assess. [...]
--- OUTSIDE RECORDS SUMMARY | 2024-08-23 12:44 | XMS_ITS | Data Portability ---
Author Organization [place] [facility] [email or web address], Main Office Address [address] [place] [address] Care Team Providers Care Senior Net C Developer Name Role Phone NGUYEN GUERRERO Primary Care Provider [phone] NGUYEN GUERRERO Referring Provider Assessment Encounter Date Assessment Date Assessment LastModified by Organization Details LastModified Time 10/30/2022 10/30/2022 This note is dictated and transcribed by [employer]. [employer] variances may occur. Despite proofreading, typographical errors may occur. [email or web address] Not available 10/30/2022 17:36:08 05/12/2023 05/12/2023 This note is dictated and transcribed by [employer]. [employer] variances may occur. Despite proofreading, typographical errors may occur. Occasional wrong-word or 'iltnz-h-mthx' substitutions may have occurred due to the inherent limitations of voice recording. Read the chart carefully and recognize, using context, where substitutions have occurred. Not available 05/12/2023 11:28:58 06/23/2023 06/23/2023 This note is dictated and transcribed by [employer]. [employer] variances may occur. Despite proofreading, typographical errors may occur. Occasional wrong-word or 'qvugu-r-looa' substitutions may have occurred due to the [...] duplex, arterial, lower extremity, complete 2022 023 [facility] ([facility]), [address] [place], [address], 3 15:13:54 Medication Orders ammonium lactate 12 % lotion 2022 023 [id number], [address], [place], [place], [id number], 12:45:46 Patient TargetsNo targets recorded. Patient InstructionsNo instructions recorded. Reason for Referral None Reported. Results Created Date Observation Date Name Description Value Unit Range Abnormal Flag Note LastModifiedBy Organization Detail LastModifiedTime 07/24/1903/21/2022 LDCT, chest , for lung cance r david reed No observ ation record ed. [id number] Not Available 07/30/2022 04:52:09 05/29/20 23 05/27/2023 US, duple x, arter ial, lower extre mity, compl ete No observ ation record ed. [email or web address] [place] [address] [address] [place], [address], 06/03/2023 10:32:50 04/01/20 24 03/31/2024 compl ete PFT w/ post [facility] hodil ator maxine metry * No observ ation record ed. BARCODE Not Available 2023 12:48:02 04/20/20 24 04/20/2024 CT, abdom en + pelvi s, w/ contr ast No observ ation record ed. [address], [place], [address], 04/20/2024 12:08:20 Result Notes None recorded. Problems Name Problem SNOMED Code Status Onset Date Resolution Date Notes Provider Name and Address Organization Details Recorded Time Overactive urinary bladder 388750044 Active 2022 David Shah MD [address] [facility], [address], [place], [address] , [place] [facility] [employer] [facility] 3 10:15:19 Obstructive sleep apnea syndrome 69358686 Active 2022 Palma Haro MA null, [employer] [facility] 3 16:23:32 Dystrophia unguium 12029377 Active 2022 Hema Wood DPM [address], [address], [place], [address] , [facility] 3 17:36:12 Severe dry skin 510683970 Active 2022 Hema Wood DPM [address], [address], [place], [address] , [employer] [facility] [employer] 3 12:45:26 Peripheral arterial occlusive disease 765043795 Active 2022 Hema Wood DPM [address], [address], [place], [address] , [facility] [employer] 3 11:28:03 Cigarette smoker 12330538 Active 2022 Hema Wood DPM [address], [address], [place], [address] , [facility] 3 11:28:36 Dry skin dermatitis 367729799 Active 2021 Not Available [facility] 3 04:45:04 Osteoarthriti s 045671970 Active Not Available [facility] 3 04:45:04 Dyspnea on exertion 63753283 Active 2022 Not Available [facility] 3 04:45:04 Diabetes mellitus 17010389 Active Not Available [facility] 3 04:45:04 Sleep apnea 61717179 Active 2022 Not Available [facility] 3 04:45:04 Notes:Medical History: Depre ssion Ocular [...] extractions with IOL 2017 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 Procedures Surgical History Date Name Laterality Status Provider Name and Address Organization Details Recorded Time 05/12/20 23 Nail Debridement completed Hema Wood DPM [address], [address], [place], [address], [employer] 05/12/2023 11:45:53 02/11/20 23 Nail Debridement completed Hema Wood DPM [address], [address], [place], [address], [employer] 02/12/2023 14:14:32 10/31/19 23 Nail Debridement completed Hema Wood DPM [address], [place], [address], [employer] 10/30/2022 17:35:03 Appendectomy completed Not Available [facility] 07/30/2022 04:40:56 Hysterectomy, Partial completed Not Available [facility] 07/30/2022 04:40:56 Breast Biopsy completed Not Available [facility] 07/30/2022 04:40:56 Cataract Surgery completed Not Available [facility] 07/30/2022 04:40:56 Imaging Results Imaging Date Name Status LastModified by Organization Details LastModified Time 03/21/2022 LDCT, chest, for lung cancer screening completed [id number] Information not available 07/30/2022 04:52:09 05/27/2023 US, duplex, arterial, lower extremity, complete completed [address], [place], [address], 06/03/2023 10:32:50 03/31/2024 complete PFT w/ post bronchodilator spirometry* completed BARCODE Information not available 04/01/2024 12:48:02 04/20/2024 CT, abdomen + pelvis, w/ contrast completed [place] [id number] [facility] [address], [place], [address], 04/20/2024 12:08:20 Procedure Notes None recorded. Medical Equipment None Reported. Allergies Allergen ID Allergen Name Allergen Category Reaction Reaction Severity Criticality Documentation Date Start Date Code Code System Note Provider Name and Address Organization Details Recorded Time 6880 cyclobenz aprine medicatio n Not available Not available Not available 07/30/2022 14310 RxNorm Not Available [facility] 3 04:51:45 6881 codeine medicatio n Not available Not available Not available 07/30/2022 2670 RxNorm Not Available [facility] 3 04:51:45 6882 baclofen medicatio n Not available Not available Not available 07/30/2022 1292 RxNorm Not Available [facility] 3 04:51:45 Medications Name Sig Start [...] % 99 /min 97.7 [degF] Not Available [facility] 3 04:43:16 Date Recorded Body height Heart rate Respiratory rate Oxygen saturation Oxygen saturation in Arterial blood by Pulse oximetry Systolic blood pressure Diastolic blood pressure Provider Name and Address Organization Details Last Updated DateTime 3 172.72 cm 104 /min 14 /min 97 % 97 % 106 mm[Hg] 60 mm[Hg] Dee Dee Raymundo Faisal ME [employer] [facility] 3 16:58:39 Date Recorded Body height Heart rate Respiratory rate Oxygen saturation Oxygen saturation in Arterial blood by Pulse oximetry Systolic blood pressure Diastolic blood pressure Provider Name and Address Organization Details Last Updated DateTime 3 172.72 cm 104 /min 14 /min 97 % 97 % 106 mm[Hg] 60 mm[Hg] Mimi Sheldon [facility] [employer] [facility] 3 16:03:05 Date Recorded Body height Heart rate Respiratory rate Oxygen saturation Oxygen saturation in Arterial blood by Pulse oximetry Systolic blood pressure Diastolic blood pressure Provider Name and Address Organization Details Last Updated DateTime 3 172.72 cm 96 /min 14 /min 98 % 98 % 111 mm[Hg] 63 mm[Hg] Dee Dee Hearn [place] [facility] [employer] [facility] 3 11:18:28 Social History Question Answer Notes LastModified by Organizat ion Details LastModified Time Tobacco Smoking Status Current Every Day Smoker Not Available [facility] 07/30/2022 04:29:52 What Is Your Level Of Caffeine Consumption? Moderate [id number] Information not available 07/30/2022 In The 14 Days Before Symptom Onset, Have You Had Close Contact With A Laboratory-confir med COVID-19 While That Case Was Ill? No [id number] 1562 Information not available 07/30/2022 In The 14 Days Before Symptom Onset, Have You Had Close Contact With A Person Who Is Under Investigation For COVID-19 While That Person Was Ill? No MIGRATION.005129 1594 Information not available 07/30/2022 What Was The Date Of Your Most Recent Tobacco Screening? 01/14/2022 [id number] 2542 Information not available 07/30/2022 What Is Your Current Pack Years? 30ormorepack years MIGRATION.199264 3625 Information not available 07/30/2022 How Much Tobacco Do You Smoke? 1 PPD 1-2 Packs A Day MIGRATION.017144 4898 Information not available 07/30/2022 Do You Use Any Illicit Or Recreational Drugs? No MIGRATION.803219 3087 Information not available 07/30/2022 Has Tobacco Cessation Counseling Been Provided? No MIGRATION.026362 4188 Information not available 07/30/2022 Have You Recently Traveled Abroad? No MIGRATION.451045 0219 Information not available 07/30/2022 Do You Or Have You Ever Used Any Other Forms Of Tobacco Or Nicotine? No MIGRATION.116000 3685 Information not available 07/30/2022 Sex: Unknown Functional Status None recorded. Mental Status None recorded. Family History Relationship Description Onset Age of this Age Resolved Age Notes LastModified by Organization Details LastModified Time Mother Malignant tumor of ovary MIGRATION.048 [id number] Not available 07/30/2022 04:41:00 Mother Hypertensive disorder MIGRATION.721 [id number] Not available 07/30/2022 04:41:00 Sister Malignant tumor of breast MIGRATION.530 [id number] Not available 07/30/2022 04:41:00 Maternal Aunt Malignant tumor of breast MIGRATION.496 [id number] Not available 07/30/2022 04:41:00 Maternal Aunt Malignant tumor of colon MIGRATION.565 [id number] Not available 07/30/2022 04:41:00 Maternal Grandmother Malignant tumor of cervix MIGRATION.683 [id number] Not available 07/30/2022 04:41:00 Medical History Condition [...] HAVE YOU BEEN HOSPITALIZED OR SEEN IN [facility] IN THE PAST YEAR ? N [...] 50 mcg/0.25mL dose 09/23/2021 completed Not Available [facility] 3 04:51:37 COVID-19, mRNA, LNP-S, PF, 100 mcg/0.5mL dose or 50 mcg/0.25mL dose 04/08/2021 completed Not Available [facility] 3 04:51:37 COVID-19, mRNA, LNP-S, PF, 100 mcg/0.5mL dose or 50 mcg/0.25mL dose 08/24/2020 completed Not Available [facility] 3 04:51:37 COVID-19, mRNA, LNP-S, PF, 100 mcg/0.5mL dose or 50 mcg/0.25mL dose 07/27/2020 completed Not Available [facility] 3 04:51:37 Past Encounters Encounter ID Performer Location Encounter Start Date Encounter Closed Date Diagnosis/Indication Diagnosis SNOMED-CT Code Diagnosis ICD10 Code Diagnosis Note [id number] _ATHENA_M IGRATION_ DEFAULT_1 _1 , 09/07/2020 00:00:00 09/13/2020 09:23:31 [id number] _ATHENA_M IGRATION_ DEFAULT_1 _1 , 12/07/2020 00:00:00 12/10/2020 08:34:36 [id number] _ATHENA_M IGRATION_ DEFAULT_1 _1 , 03/08/2021 00:00:00 03/11/2021 10:38:14 [id number] _ATHENA_M IGRATION_ DEFAULT_1 _1 , 06/14/2021 00:00:00 06/17/2021 14:07:58 [id number] [facility] [address] [address] 09/26/2021 00:00:00 11/11/2021 17:17:31 [id number] _ATHENA_M IGRATION_ DEFAULT_1 _1 , 10/18/2021 00:00:00 10/21/2021 09:52:59 [id number] [facility] [place] [address] [place] [address] [address] [place] [address] 01/14/2022 00:00:00 01/14/2022 10:43:06 [id number] [facility] E[facility] [place] [address] [place] [address] 03/20/2022 00:00:00 04/03/2022 09:16:35 [id number] [facility] [place] [address] [place] [address] 07/17/2022 00:00:00 07/17/2022 13:22:21 [id number] Hema Wood DPM [facility], [address] [address] 10/30/2022 16:27:42 10/30/2022 17:41:34 Diabetes mellitus 22398703 E11.40 L60.0 M79.676 Z74.1 Continue with PCP recommenda tions Dystrophia unguium 59576 009 L60.3 Nails 1 through 10 were debrided with sharp mechanical debridemen t without incident. Nails were debrided and greater than 50% length and thickness where needed. [id number] Hema Wood DPM [facility] [address], [address] [address] 02/10/2023 12:21:37 02/13/2023 10:55:26 Diabetes mellitus 57925952 E11.40 L60.0 M79.676 Z74.1 Continue with PCP recommenda tionsCheck feet daily for wounds infectionC ontinue supportive shoe gearFollow -up in 3 months for diabetic foot care Dystrophia unguium 86615 009 L60.3 Nails 1 through 10 were debrided with sharp mechanical debridemen t without incident. Nails were debrided and greater than 50% length and thickness where needed. Severe dry skin 25105293 2 L85.3 [id number] Hema Wood DPM [facility] [address], [address] [address] 05/12/2023 11:08:44 05/12/2023 12:49:20 Diabetes mellitus 31572015 E11.40 L60.0 M79.676 Z74.1 Continue with PCP recommenda tionsCheck feet daily for wounds infectionC ontinue supportive shoe gearFollow -up in 3 months for diabetic foot care Dystrophia unguium 03192 009 L60.3 nails debrided without incident Peripheral arterial occlusive disease 750338154 I73.9 last vascular testing 2020, repeat Cigarette smoker 4234106 7 F17.210 encouraged to discontinu e smokingSid e effects of smoking reviewed with the patient [id number] Hema Wood DPM [facility] [place] [address] [facility], [facility] [address] [place] [address] 06/25/2023 09:03:44 07/01/2023 08:06:46 Peripheral arterial occlusive disease 707381144 I73.9 testing reviewed Cigarette smoker 8767098 7 F17.210 encouraged to discontinu e smokingSid e effects of smoking reviewed with the patient Dystrophia unguium 82173 009 L60.3 nails debrided without incident Health Concerns Section Related Observation LastModified by Organization Detai ls LastModified Time None Recorded Concern Status LastModified by Organization Details LastModified Time None Recorded Advance Directives Directive None Recorded Payers Encounter Date Sequence Insurance Name Policy Number Policy Munoz Covered Member ID Munoz Member ID Guarantor Name 10/30/2022 2 [place] [facility] May Lousi [id number] May Myers 10/30/2022 1 [facility] (MEDICARE REPLACEMENT/A DVANTAGE - HMO) [id number] May Myers [id number] May Myers 02/10/2023 2 [place] [facility] May Louis [id number] May Myers 02/10/2023 1 [facility] (MEDICARE REPLACEMENT/A DVANTAGE - HMO) [id number] May Myers [id number] May Myers 05/12/2023 2 [place] [facility] May Louis [id number] May Myers 05/12/2023 1 [facility] (MEDICARE REPLACEMENT/A DVANTAGE - HMO) [id number] May Myers [id number] May Myers 06/23/2023 2 [place] [facility] May Myers [id number] May Myers 06/23/2023 1 [facility] (MEDICARE REPLACEMENT/A DVANTAGE - HMO) [id number] May Myers [id number] May Myers Notes Date Note Type Note [...] denies any other complaints. Hema Wood DPM [address] [facility], [address], [place], [address], [employer] 10/30/2022 17:36:48 02/10/2023 text/html . Patient is a 67-year-old female diabetic who returns the office for diabetic foot care. Patient denies any open wounds or infection. Patient states her nails are long would like to have them cut and has dry skin. Patient would like a refill the Amlactin as she is out. Patient denies any other complaints. Hema Wood DPM [address] [facility], [place], [address], [employer] 02/12/2023 14:14:40 05/12/2023 text/html . Patient is [...] other pedal complaints. Hema Wood DPM [address], [place], [address], [employer] 05/12/2023 11:46:16 OBGyn Episode No OBEpisode recorded.
--- OUTSIDE RECORDS SUMMARY | 2024-08-23 12:44 | XMS_ITS | Encounter Summary ---
Author Organization [facility] Health Address [address] [address] [place] [address] Care Team Providers Care Publicist Name Role Phone Jamal Mendez MD Unavailable [phone] Kaye Martinez MD Primary Care Provider [phone] Reason for Visit * Reason Onset Date Comments Establish Care 08/02/2024 Encounter Details Date Type Department Care Team (Late st Contact Info) Description 08/02/2024 Telephone [facility] - MEDIA MARKETING COORDINATOR [address] [facility] [address] [place] [address] Erica Singleton MD [address] [facility] [address] [place], [place] [phone] Establish Care Social History Tobacco Use Types [...] and heating? Not hard at all 05/22/2024 [facility] [place] [facility] Occupat ional Health - Occupational Stress [...] any time in the past 12 m [facility], were you homeless or living in a jail (including now)? No 05/22/2024 Sex and Gender [...] can continue to follow-up with her general MARKETING COPYWRITER per Dr. Singleton. HARBOR PILOT * Telephone Encounter - Mallory Norton - 08/02/2024 4:13 PM CST ATTENTION STAFF TAKING THE INITIAL CALL: Please follow the workflow below for all NEW MARKETING COPYWRITER/ONC patient calls. Hamel the patient. If they are not in system, it is MANDATORY that you register them completely including insurance. Gather and document all the information listed below from the caller Referring provider: Dr. Ulices Vides Diagnosis: Malignant neoplasm of uterus, unspecified site (HCC) Requesting appointment with : Erica Singleton personal computer network engineer at referring provider's office: Who should be contacted for scheduling (ie self, family member, guardian, etc.): Best contact number for scheduling: ()-- Ask for records to be faxed to [phone] that same day. If the referring provider is an [facility] provider and their records are already viewable in [email or web address], do NOT ask for them to be faxed. Inform the caller you are forwarding this information to the MARKETING COPYWRITER/ONC New Patient Intake Coordinatorfor review and someone [...] day, and then transfer the call to [phone]. Forward this encounter to the [facility] MARKETING COPYWRITER ONC NEW PATIENTS pool ([id number]). ATTENTION MARKETING COPYWRITER/ONC NEW PATIENT STANDARDS ANALYST or MEDIA MARKETING COORDINATOR OFFICE STAFF SCHEDULING THE NEW PATIENT APPOINTMENT: Please follow the workflow below for all NEW MARKETING COPYWRITER/ONC patient scheduling. Reach out to the designated personnel officer listed above at the number provided. Assist in scheduling a NEW patient appointment within 10 days. Gather and document all the information listed below: Date referral was received: How referral was received: Date contacted for scheduling: Scheduled with Dr. Appointment date: Appointment time: Appointment location: Records location: If the patient reports a medical issue that needs to be triaged by an RN (i.e. bleeding, pain, etc.), this encounter should be marked high priority and forwarded to the MARKETING COPYWRITER/ONC respooler after scheduling the NEW appointment and an RN will contact the patient. HARBOR PILOT documented in this encounter Plan of Treatment Upcoming Encounters Date Type Department Care Team (Late st Contact Info) Description 08/26/2024 10:15 AM CDT Clinical Support [facility] [address] [place] [phone] Ulices Vides MD [address] [place] [address] 09/22/2024 10:30 AM CDT Procedure visit [facility] [address] [facility] [address] [place] [address] Bette Allred M, [address] [place] [address] documented as of this encounter Visit Diagnoses Not on filedocumented in this encounter Additional Health Concerns Infection Onset Date Last Indicated Resolved Time MDRO Hx Comment:05/06/24 - urine 06/27/2024 06/27/2024 ESBL Hx Comment:05/06/24 - urine 06/27/2024 06/27/2024 documented as of this encounter Care Teams Publicist Relationship Specialty Start Date End Date Kaye Martinez MD [facility] [address] [place] [address] PCP - General Emergency Medicine 01/26/24 Jamal Mendez MD [address] [facility] [address] [address] Internal Medicine 01/26/24 documented as of this encounter
--- OUTSIDE RECORDS SUMMARY | 2024-08-23 12:44 | XMS_ITS | Continuity of Care Document ---
Author Organization [facility] Address [address] [place] [address] Phone Care Team Providers Care Line Haul Truck Driver Name Role Phone Emmett Watkins DO Unavailable Unavailable Advance Directives Directive Yes / No Effective Date File Name No Information Encounters Encounter Description Practice Location Reason(s) For Visit Diagnoses Date Provider Providers Copied on Encounter [facility], [address], [place], [place], [id number], [place] tel:[phone] No Information Roland Chavarria. [address] [facility], [place], [address], [place]. tel: [phone] Family History Family Member Type Diagnosis Age At Onset No Information Payers Payer name Insurance type Covered democrat ID Authoriza tievita(s) [facility] Custom Care [place] [id number] Social History Type Description Quantity Date Captured [...]
--- OUTSIDE RECORDS SUMMARY | 2024-08-23 12:44 | XMS_ITS | Clinical Summary ---
Author Organization [facility] Address [address] [address] Care Team Providers Care Social Media Marketing Specialist Name Role Phone Jamal Mendez MD Unavailable [phone] Kaye Martinez MD Primary Care Provider [phone] Source Comments [facility],non-owned Affiliates and Associated Physician Practices is amultiple site organization consisting of ambulatory clinics and hospital sitesin [place], [place], [place] and [place]. This disclosure is being madepursuant to the Care Everywhere program and may not contain all information available regarding this patient. Last updated 18.[facility] Allergies Active Allergy Reactions Criticality Noted Date [...] PUFFS BY MOUTH EVERY DAY 05/15/2024 Active yortl-7-pimb ethyl esters (Lovaza) 1 g capsule Take [...] Encounters Date Type Department Care Team Description 08/11/2024 Telephone [facility] - Urology [address] [place] [address] Ulices Vides MD Results 08/05/2024 1:18 PM ASSEMBLER FOR P[employer] - 08/05/2024 11:59 PM ASSEMBLER FOR [employer] Hospital Encounter [facility] Health Imaging Services - CT Scan [address], [address] [place] [address] Case Monterroso MD Farroll, Kelly, MD Discharge Disposition: Home or Self Care 08/02/2024 Telephone [facility] - WAREHOUSE SHIPPING CLERK [address] [place] [address] Erica Singleton MD Establish Care 07/29/2024 2:55 PM ASSEM[employer]ER FOR [employer] - 07/29/2024 11:59 PM ASSEMBLER FOR [employer] Hospital Encounter [facility] LAB OP DRAW STATION [address] [place] [phone] Ulices Vides MD Discharge Disposition: Home or Self Care 07/29/2024 10:00 AM [employer]SEMBLER FOR [employer] Clinical Support [facility] - Urology [address] [place] [phone] Ulices Vides MD Dysuria ; Malignant neoplasm of uterus, unspecified site; Urinary incontinence, unspecified type 07/29/2024 Travel 07/14/2024 Telephone [facility] - Urology [address] [place] [address] Salud Connelly, MARKET MASTER-MINE ADMINISTRATOR SUPERVISOR Results 07/12/2024 10:00 AM ASSEMBLER FOR [employer] Clinical Support [facility] - Urology [address] [place] [phone] Narda Pierce MD Goodman, Molly T, MARKET MASTER-MINE ADMINISTRATOR SUPERVISOR Neurogenic bladder ; Dysuria; Foreign body in bladder, initial encounter; Malfunction of Clancy catheter, initial encounter 07/12/2024 Travel 06/25/2024 9:01 PM [employer]SEM[employer]ER FOR [employer] - 06/28/2024 10:00 PM [employer]SEMBLER FOR [employer] Hospital Encounter [facility] MED[facility] [address] [place] [address] Mandi Lyn MD Usman, Ahsan, MD Nangle, Sarah E, DO Henke, Jonathan W, MD Subramanian, Veerakesari, MD Hospitalist Discharge Disposition: Left Against Medical Advice/Discontinued Care 06/12/[address] [facility] PHYS SURGERY [address] [place] [address] Michael Ya MD URINARY CATHETER PROBLEM 06/07/2024 Telephone [facility] Physician Group - Infectious Disease [facility] [place] [address] Nieves Mills, RN Follow-up 06/07/2024 Telephone [facility] Physician Group - Infectious Disease [address] [place] [phone] Nieves Mills, RN Appointment 06/06/2024 Travel 06/06/2024 Telephone [facility] - [facility]ious Disease [address] [place] [phone] Omid Sanders MD Appointment 05/21/2024 12:18 PM ASSEMBLER FOR [employer] - 06/01/2024 9:10 PM ASSEMBLER FOR [employer] OVER [employer] Hospital Encounter [facility] [address] [place] [phone] Kishore Godinez MD Felgenhauer, Joshua, MD Purdy, MD Gina Stoner, MD Dori Sánchez Iqra, MD Madi, MD Khushi Chavez Christopher, Hospitalist Discharge Disposition: Left Against Medical Advice/Discontinued Care from Last 3 Months Social History Tobacco [...] and heating? Not hard at all 05/22/2024 [facility] [place] [facility] - Occupational Stress [...] any time in the past 12 m [facility], were you homeless or living in a usp (including now)? No 05/22/2024 Sex and Gender Information Value Date Recorded Sex Assigned at Not on file Gender Identity Not on file Sexual Orientation Not on file Last Filed Vital Signs Vital Sign Reading Time Taken Comments Blood Pressure 144/69 07/29/2024 9:50 AM ASSEMBLER FOR [employer] Pulse 99 07/29/2024 9:50 AM ASSEMBLER FOR [employer] Temperature 36.1 C (97 F) 07/29/2024 9:50 AM ASSEMBLER FOR [employer] HAND Respiratory Rate 17 06/28/2024 5:17 PM ASSEMBLER FOR [employer] HAND Oxygen Saturation 90% 07/29/2024 9:50 AM ASSEMBLER FOR [employer] HAND Inhaled Oxygen Concentration 21% 05/30/2024 1 :20 AM ASSEMBLER FOR [employer] HAND Weight 74.4 kg (164 lb) 07/29/2024 9:50 AM ASSEMBLER FOR P[employer] OVER HAND Height 172.7 cm (5' 8 ) 07/29/2024 9:50 AM ASSEMBLER FOR P[employer]ER OVER HAND Body Mass Index 24.94 07/29/2024 9:50 AM ASSEMBLER FOR P[employer] OVER HAND Plan of Treatment Upcoming Encounters Date Type Department Care Team (Late st Contact Info) Description 08/26/2024 10:15 AM CDT Clinical Support [facility] - Urology [address] [place] [phone] Ulices Vides MD [address] DIV [place] [address] 09/22/2024 10:30 AM CDT Procedure visit [facility] - Urology [address] [place] [phone] Bette Allred DO [address] DIV [place] [phone] Health Maintenance Due Date Last Done Comments [...] 60-74 years 1-dose series) 2014 COVID-19 VACCINE (2023- season) 2024 04/12/2023, 06/11/2022, 09/23/2021, Additional history exists DIABETES RETINOPATHY SCREENING 04/21/2024 DIABETES-FOOT EXAM WITH MONOFILAMENT 04/21/2024 DIABETES-HGB A1C 04/21/2024 DEPRESSION SCREENING 06/01/2024 DIABETES - URINE PROTEIN SCREENING 06/01/2024 MEDICARE AWV CALENDAR YEAR 2024 DIABETES-SERUM CREATININE 08/05/20252024, 06/28/2024, 06/27/2024, Additional history exists INFLUENZA VACCINE Completed 02/26/2024, [...] complete this topic MENINGOCOCCAL (Group B) VACCINE SHARED DECISION-MAKING Aged Out No longer eligible based on patient's age to complete this topic MENINGOCOCCAL GROUPS A/C/Y/W VACCINE Aged Out No longer eligible based on patient's age to complete this topic Procedures Procedure Name Priority Date/Time Associated Diagnosis Comments CT ABDOMEN PELVIS W CONTRAST Routine 08/05/2024 2:36 PM ASSEMBLER FOR [employer] HAND Abdominal wall abscess CREATININE - POCT INTERFACED Routine 08/05/2024 1:51 PM ASSEMBLER FOR [employer] HAND URINALYSIS W/MICROSCOPIC REFLEX TO CULTURE Routine 07/29/2024 3:51 PM ASSEMBLER FOR [employer] Urinary incontinence, unspecified type CULTURE URINE Routine 07/29/2024 3:51 PM ASSEMBLER FOR [employer] Urinary incontinence, unspecified type CULTURE URINE Routine 07/29/2024 3:51 PM [employer]SEM[employer] FOR [employer] Dysuria CULTURE FUNGUS OTHER+FUNGUS SMEAR Routine 07/29/2024 3:45 PM [employer]SEM[employer]ER FOR [employer] Dysuria NM CYSTOSCOPY,REMV CALCULUS,COMPLIC Routine 07/14/2024 2:03 PM ASSEMBLER FOR [employer] HAND Neurogenic bladder NM INSERT TEMP INDWELL BLADD CATH Routine 07/14/2024 12:46 PM ASSEMBLER FOR [employer] HAND Neurogenic bladder CULTURE URINE Routine 07/12/2024 12:20 PM ASSEMBLER FOR [employer] HAND Dysuria GLUCOSE - POINT OF CARE Routine 06/28/2024 5:15 PM ASSEMBLER FOR [employer] OVER HAND VANCOMYCIN LEVEL TROUGH STAT 06/28/2024 1:00 PM ASSEMBLER FOR [employer] OVER HAND GLUCOSE - POINT OF CARE Routine 06/28/2024 12:14 PM ASSEMBLER FOR [employer] OVER HAND GLUCOSE - POINT OF CARE Routine 06/28/2024 9:02 AM ASSEMBLER FOR P[employer] OVER HAND VANCOMYCIN LEVEL TROUGH STAT 06/28/2024 4:33 AM ASSEMBLER FOR [employer] OVER HAND CK BLOOD Add on 06/28/2024 4:32 AM ASSEMBLER FOR [employer] OVER HAND RENAL FUNCTION PANEL AM Draw 06/28/2024 4:32 AM ASSEMBLER FOR [employer] OVER HAND CBC W/O DIFFERENTIAL AM Draw 06/28/2024 4:32 AM ASSEMBLER FOR P[employer]ER OVER HAND VANCOMYCIN LEVEL PEAK STAT 06/28/2024 4:32 AM ASSEMBLER FOR P[employer]ER OVER HAND GLUCOSE - POINT OF CARE Routine 06/27/2024 7:45 PM ASSEMBLER FOR PULLER OVER HAND GLUCOSE - POINT OF CARE Routine 06/27/2024 5:54 PM ASSEMBLER FOR PULLER OVER HAND GLUCOSE - POINT OF CARE Routine 06/27/2024 11:44 AM ASSEMBLER FOR P[employer]ER OVER HAND GLUCOSE - POINT OF CARE Routine 06/27/2024 8:26 AM ASSEMBLER FOR P[employer]ER OVER HAND RENAL FUNCTION PANEL AM Draw 06/27/2024 4:13 AM ASSEMBLER FOR P[employer]ER OVER HAND CBC W/O DIFFERENTIAL AM Draw 06/27/2024 4:13 AM ASSEMBLER FOR PULLER OVER HAND GLUCOSE - POINT OF CARE Routine 06/26/2024 9:48 PM ASSEMBLER FOR P[employer] OVER HAND XR CHEST 1VW PORTABLE Routine 06/26/2024 8:37 PM ASSEMBLER FOR [employer] HAND Cystitis GLUCOSE - POINT OF CARE Routine 06/26/2024 6:17 PM ASSEMBLER FOR PULLER OVER HAND GLUCOSE - POINT OF CARE Routine 06/26/2024 12:35 PM ASSEMBLER FOR PULLER OVER HAND GLUCOSE - POINT OF CARE Routine 06/26/2024 8:02 AM ASSEMBLER FOR P[employer]ER OVER HAND BASIC METABOLIC PANEL (CALCIUM TOTAL) AM Draw 06/26/2024 4:30 AM ASSEMBLER FOR P[employer]ER OVER HAND URINALYSIS REFLEX MICROSCOPIC REFLEX CULTURE Routine 06/26/2024 2:51 AM ASSEMBLER FOR P[employer]ER OVER HAND CULTURE URINE Routine 06/26/2024 2:51 AM ASSEMBLER FOR P[employer] OVER HAND CK BLOOD Add on 06/25/2024 9:56 PM ASSEMBLER FOR [employer] OVER HAND COMPREHENSIVE METABOLIC PANEL STAT 06/25/2024 9:56 PM ASSEMBLER FOR [employer] OVER HAND CBC W AUTO DIFFERENTIAL STAT 06/25/2024 9:56 PM ASSEMBLER FOR [employer] OVER HAND PT EVAL AND TREAT Routine 06/25/2024 9:3 2 PM ASSEMBLER FOR P[employer] OVER HAND OT EVAL AND TREAT Routine 06/25/2024 9:3 2 PM ASSEMBLER FOR [employer] OVER HAND CULTURE BLOOD Timed 06/25/2024 9:24 PM ASSEMBLER FOR P[employer]ER OVER HAND LACTIC ACID BLOOD REFLEX TO REPEAT STAT 06/25/2024 9:18 PM ASSEMBLER FOR P[employer] OVER HAND CULTURE BLOOD Timed 06/25/2024 9:18 PM ASSEMBLER FOR PULLER OVER HAND GLUCOSE - POINT OF CARE Routine 06/01/2024 7:48 PM ASSEMBLER FOR PULLER OVER HAND GLUCOSE - POINT OF CARE Routine 06/01/2024 5:23 PM ASSEMBLER FOR PULLER OVER HAND GLUCOSE - POINT OF CARE Routine 06/01/2024 12:35 PM ASSEMBLER FOR PULLER OVER HAND GLUCOSE - POINT OF CARE Routine 06/01/2024 8:24 AM ASSEMBLER FOR P[employer] OVER HAND CBC W/O DIFFERENTIAL AM Draw 06/01/2024 3:07 AM ASSEMBLER FOR [employer] HAND Infection due to bacteria resistant to multiple antimicrobial drugs RENAL FUNCTION PANEL AM Draw 06/01/2024 3:07 AM ASSEMBLER FOR [employer] HAND Infection due to bacteria resistant to multiple antimicrobial drugs MAGNESIUM BLOOD Routine 06/01/2024 3:07 AM ASSEMBLER FOR [employer] HAND Infection due to bacteria resistant to multiple antimicrobial drugs GLUCOSE - POINT OF CARE Routine 05/31/2024 9:44 PM ASSEMBLER FOR P[employer]ER OVER HAND GLUCOSE - POINT OF CARE Routine 05/31/2024 5:07 PM ASSEMBLER FOR P[employer]ER OVER HAND GLUCOSE - POINT OF CARE Routine 05/31/2024 8:03 AM ASSEMBLER FOR P[employer]ER OVER HAND CK BLOOD Routine 05/31/2024 5:58 AM ASSEMBLER FOR P[employer]ER OVER HAND CBC W/O DIFFERENTIAL AM Draw 05/31/2024 5:58 AM ASSEMBLER FOR P[employer] OVER HAND Infection due to bacteria resistant to multiple antimicrobial drugs RENAL FUNCTION PANEL AM Draw 05/31/2024 5:58 AM ASSEMBLER FOR [employer] OVER HAND Infection due to bacteria resistant to multiple antimicrobial drugs MAGNESIUM BLOOD Routine 05/31/2024 5:58 AM ASSEMBLER FOR [employer] HAND Infection due to bacteria resistant to multiple antimicrobial drugs GLUCOSE - POINT OF CARE Routine 05/30/2024 8:22 PM ASSEMBLER FOR P[employer]ER OVER HAND GLUCOSE - POINT OF CARE Routine 05/30/2024 5:48 PM ASSEMBLER FOR PULLER OVER HAND GLUCOSE - POINT OF CARE Routine 05/30/2024 8:09 AM ASSEMBLER FOR P[employer]ER OVER HAND CBC W/O DIFFERENTIAL AM Draw 05/30/2024 5:39 AM ASSEMBLER FOR P[employer] OVER HAND Infection due to bacteria resistant to multiple antimicrobial drugs RENAL FUNCTION PANEL AM Draw 05/30/2024 5:39 AM ASSEMBLER FOR [employer] OVER HAND Infection due to bacteria resistant to multiple antimicrobial drugs MAGNESIUM BLOOD Routine 05/30/2024 5:39 AM ASSEMBLER FOR P[employer] OVER HAND Infection due to bacteria resistant to multiple antimicrobial drugs GLUCOSE - POINT OF CARE Routine 05/29/2024 9:24 PM ASSEMBLER FOR PULLER OVER HAND GLUCOSE - POINT OF CARE Routine 05/29/2024 2:19 PM ASSEMBLER FOR P[employer] OVER HAND CBC W/O DIFFERENTIAL AM Draw 05/29/2024 8:42 AM ASSEMBLER FOR P[employer] OVER HAND Infection due to bacteria resistant to multiple antimicrobial drugs RENAL FUNCTION PANEL AM Draw 05/29/2024 8:42 AM ASSEMBLER FOR P[employer] OVER HAND Infection due to bacteria resistant to multiple antimicrobial drugs MAGNESIUM BLOOD Routine 05/29/2024 8:42 AM ASSEMBLER FOR P[employer] OVER HAND Infection due to bacteria resistant to multiple antimicrobial drugs GLUCOSE - POINT OF CARE Routine 05/29/2024 8:00 AM ASSEMBLER FOR PULLER OVER HAND GLUCOSE - POINT OF CARE Routine 05/28/2024 10:44 PM ASSEMBLER FOR PULLER OVER HAND GLUCOSE - POINT OF CARE Routine 05/28/2024 4:57 PM ASSEMBLER FOR PULLER OVER HAND RENAL FUNCTION PANEL AM Draw 05/28/2024 3:05 PM ASSEMBLER FOR P[employer] OVER HAND Infection due to bacteria resistant to multiple antimicrobial drugs MAGNESIUM BLOOD Routine 05/28/2024 3:05 PM ASSEMBLER FOR P[employer] OVER HAND Infection due to bacteria resistant to multiple antimicrobial drugs CBC W/O DIFFERENTIAL AM Draw 05/28/2024 3:04 PM ASSEMBLER FOR P[employer] OVER HAND Infection due to bacteria resistant to multiple antimicrobial drugs GLUCOSE - POINT OF CARE Routine 05/28/2024 11:58 AM ASSEMBLER FOR PULLER OVER HAND GLUCOSE - POINT OF CARE Routine 05/28/2024 8:27 AM ASSEMBLER FOR PULLER OVER HAND GLUCOSE - POINT OF CARE Routine 05/27/2024 9:17 PM ASSEMBLER FOR PULLER OVER HAND GLUCOSE - POINT OF CARE Routine 05/27/2024 4:32 PM ASSEMBLER FOR PULLER OVER HAND CBC W/O DIFFERENTIAL AM Draw 05/27/2024 3:37 PM ASSEMBLER FOR P[employer]ER OVER HAND Infection due to bacteria resistant to multiple antimicrobial drugs RENAL FUNCTION PANEL AM Draw 05/27/2024 3:37 PM ASSEMBLER FOR P[employer] OVER HAND Infection due to bacteria resistant to multiple antimicrobial drugs MAGNESIUM BLOOD Routine 05/27/2024 3:37 PM ASSEMBLER FOR P[employer]ER OVER HAND Infection due to bacteria resistant to multiple antimicrobial drugs GLUCOSE - POINT OF CARE Routine 05/27/2024 11:51 AM ASSEMBLER FOR PULLER OVER HAND GLUCOSE - POINT OF CARE Routine 05/27/2024 7:54 AM ASSEMBLER FOR PULLER OVER HAND GLUCOSE - POINT OF CARE Routine 05/26/2024 9:32 PM ASSEMBLER FOR PULLER OVER HAND GLUCOSE - POINT OF CARE Routine 05/26/2024 4:25 PM ASSEMBLER FOR PULLER OVER HAND GLUCOSE - POINT OF CARE Routine 05/26/2024 11:49 AM ASSEMBLER FOR PULLER OVER HAND GLUCOSE - POINT OF CARE Routine 05/26/2024 7:28 AM ASSEMBLER FOR PULLER OVER HAND CBC W/O DIFFERENTIAL AM Draw 05/26/2024 7:12 AM ASSEMBLER FOR P[employer]ER OVER HAND Infection due to bacteria resistant to multiple antimicrobial drugs RENAL FUNCTION PANEL AM Draw 05/26/2024 7:12 AM ASSEMBLER FOR P[employer]ER OVER HAND Infection due to bacteria resistant to multiple antimicrobial drugs MAGNESIUM BLOOD Routine 05/26/2024 7:12 AM ASSEMBLER FOR P[employer]ER OVER HAND Infection due to bacteria resistant to multiple antimicrobial drugs GLUCOSE - POINT OF CARE Routine 05/25/2024 10:04 PM ASSEMBLER FOR PULLER OVER HAND GLUCOSE - POINT OF CARE Routine 05/25/2024 5:08 PM ASSEMBLER FOR PULLER OVER HAND GLUCOSE - POINT OF CARE Routine 05/25/2024 12:19 PM ASSEMBLER FOR PULLER OVER HAND GLUCOSE - POINT OF CARE Routine 05/25/2024 8:06 AM ASSEMBLER FOR P[employer]ER OVER HAND CK BLOOD Routine 05/25/2024 3:12 AM ASSEMBLER FOR P[employer]ER OVER HAND CBC W/O DIFFERENTIAL AM Draw 05/25/2024 3:12 AM ASSEMBLER FOR P[employer] OVER HAND Infection due to bacteria resistant to multiple antimicrobial drugs RENAL FUNCTION PANEL AM Draw 05/25/2024 3:12 AM ASSEMBLER FOR P[employer] OVER HAND Infection due to bacteria resistant to multiple antimicrobial drugs MAGNESIUM BLOOD Routine 05/25/2024 3:12 AM ASSEMBLER FOR [employer] OVER HAND Infection due to bacteria resistant to multiple antimicrobial drugs from Last 3 Months Results * CT Abdomen Pelvis W Contrast (08/05/2024 2:36 PM ASSEMBLER FOR [employer]) Anatomical Region Laterality Modality Abdomen, Pelvis Computed Tomogra phy 08/05/2024 2:58 PM AS[employer]ER FOR [employer] Impressions 08/05/2024 4:04 PM ASSEMBLER FOR [employer] IMPRESSION: 1. Interval decrease in size of a now 3.1 x 0.9 x 1.3 cm fluid collection in the deep subcutaneous fat over the midline pelvis. 2. Body wall edema posteriorly. 3. Bronchiectasis of both lung bases with interstitial opacities and small bilateral pleural effusions, new from prior study. 4. Diffuse hepatic steatosis with decrease in prominence of an indeterminate hypoenhancing focus in hepatic segment IVb. > Interpreting Provider: Carol Hernández MD on 08/05/2024 4:04 PM Narrative 08/05/2024 4:04 PM ASSEMBLER FOR [employer] OVER [employer] PROCEDURE: CT ABDOMEN PELVIS W CONTRAST DATE/TIME OF EXAM: 08/05/2024 2:40 PM CLINICAL INFORMATION: None relevant/not provided if blank. Indication: L02.211: Cutaneous abscess of abdominal wall Additional History: COMPARISON: 04/20/2024 TECHNIQUE: CT of the abdomen and pelvis was performed following intravenous contrast utilizing standard protocol. CT dose reduction technique was used, including Automated Exposure Control. CONTRAST: IOPAMIDOL 76 % IV SOLN:100 mL FINDINGS: LUNG BASES: There is bronchiectasis at both lung bases with interstitial opacities. Small bilateral pleural effusions. Trace pericardial fluid. LIVER: Diffuse hepatic steatosis. Low-attenuation adjacent to the falciform in hepatic segment IVb measures approximately 1.6 x 1.5 cm, not appreciably changed. The peripheral nodule is less pronounced. GALLBLADDER: Absent. BILE DUCTS: Nondilated. There is some minimal edema in the fat adjacent to the liver hilum, which is nonspecific. PANCREAS: Within normal limits. SPLEEN: Within normal limits. ADRENALS: Within normal limits. KIDNEYS/URETERS: Within normal limits. PELVIC ORGANS: The bladder is decompressed around a suprapubic tube. The bladder wall is not well assessed. The uterus is absent. BOWEL: Normal in course and caliber. Stool throughout the colon. PERITONEUM/RETROPERITONEUM: No ascites, free air or enlarged mesenteric/retroperitoneal lymph nodes. VESSELS: Atherosclerosis. ABDOMINAL WALL: There is a small fluid collection in the anterior abdominal wall deep subcutaneous fat. The fluid component measures 3.1 x 0.9 x 1.3 cm, decreased from prior. There is skin thickening in the pannus. There is marked soft tissue edema posteriorly. BONES: No suspicious lytic or blastic lesions. Procedure Note Carol Hernández MD - 08/05/2024 PROCEDURE: CT ABDOMEN PELVIS W CONTRAST DATE/TIME OF EXAM: 08/05/2024 2:40 PM CLINICAL INFORMATION: None relevant/not provided if blank. Indication: L02.211: Cutaneous abscess of abdominal wall Additional History: COMPARISON: 04/20/2024 TECHNIQUE: CT of the abdomen and pelvis was performed following intravenouscontrast utilizing standard protocol. CT dose reduction technique was used, including Automated ExposureControl. CONTRAST: IOPAMIDOL 76 % IV SOLN:100 mL FINDINGS: LUNG BASES: There is bronchiectasis at both lung bases with interstitial opacities. Small bilateral pleural effusions. Trace pericardial fluid. LIVER: Diffuse hepatic steatosis. Low-attenuation adjacent to thefalciform in hepatic segment IVb measures approximately 1.6 x 1.5 cm, notappreciably changed. The peripheral nodule is less pronounced. GALLBLADDER: Absent. BILE DUCTS: Nondilated. There is some minimal edema in the fat adjacentto the liver hilum, which is nonspecific. PANCREAS: Within normal limits. SPLEEN: Within normal limits. ADRENALS: Within normal limits. KIDNEYS/URETERS: Within normal limits. PELVIC ORGANS: The bladder is decompressed around a suprapubic tube. The bladder wall is not well assessed. The uterus is absent. BOWEL: Normal in course and caliber. Stool throughout the colon. PERITONEUM/RETROPERITONEUM: No ascites, free air or enlarged mesenteric/retroperitoneal lymph nodes. VESSELS: Atherosclerosis. ABDOMINAL WALL: There is a small fluid collection in the anteriorabdominal wall deep subcutaneous fat. The fluid component measures 3.1 x 0.9 x 1.3 cm, decreased from prior. There is skin thickening in the pannus. Thereis marked soft tissue edema posteriorly. BONES: No suspicious lytic or blastic lesions. IMPRESSION: 1. Interval decrease in size of a now 3.1 x 0.9 x 1.3 cm fluidcollection in the deep subcutaneous fat over the midline pelvis. 2. Body wall edema posteriorly. 3. Bronchiectasis of both lung bases with interstitial opacities andsmall bilateral pleural effusions, new from prior study. 4. Diffuse hepatic steatosis with decrease in prominence of an indeterminate hypoenhancing focus in hepatic segment IVb. > Interpreting Provider: Carol Hernández MD on 08/05/2024 4:04 PM Case Monterroso MD CT ORDERABLES * (ABNORMAL) CREATININE - POCT INTERFACED (08/05/2024 1:51 PM ASSEMBLER FOR [employer]) Creatinine POCT 0.54(L) 0.70 - 1.20 mg/dL 08/05/2024 2:04 PM [employer]SEM[employer] FOR [employer] [facility] eGFR >90 >=90 mL/min/1.7 3 m2 08/05/2024 2:04 PM [facility] Blood BLOOD SPECIMEN / Unknown 08/05/2024 1:51 PM [employer] 08/05/2024 2:03 PM [employer] Kaye Martinez MD LAB - POINT OF CARE ORDERABLES [facility] [address] [place] [address] * (ABNORMAL) URINALYSIS W/MICROSCOPIC REFLEX TO CULTURE (07/29/2024 3:51 PM [employer]) Color UA Yellow Straw, Yellow 07/29/2024 4:21 PM [facility] Clarity UA Slt Cloudy(A) Clear 07/29/2024 4:21 PM [facility] Specific Mayer UA 1.010 1.005 - 1.030 07/29/2024 4:21 PM [facility] pH UA 6.0 5.0 - 8.0 pH 07/29/2024 4:21 PM [facility] Protein UA 2+(A) Negative 07/29/2024 4:21 PM [facility] Glucose UA Negative Negative 07/29/2024 4:21 PM [facility] Ketone UA Negative Negative 07/29/2024 4:21 PM [facility] Bilirubin UA Negative Negative 07/29/2024 4:21 PM [facility] Blood UA 3+(A) Negative 07/29/2024 4:21 PM [facility] Nitrite UA Negative Negative 07/29/2024 4:21 PM [facility] Leukocyte Esterase 2+(A) Negative 07/29/2024 4:21 PM [facility] Urobilinogen UA Negative Negative mg/dL 07/29/2024 4:21 PM [facility] RBC UA >100(A) None Seen, 0-2, 3-5 /HPF 07/29/2024 4:21 PM [facility] WBC UA 21-50(A) None Seen, 0-5 /HPF 07/29/2024 4:21 PM [employer] [facility] Bacteria UA Trace(A) None /HPF 07/29/2024 4:21 PM [employer] [facility] Squamous Epithelial Cells UA 0-2 None Seen, 0-2, 3-5 /HPF 07/29/2024 4:21 PM [employer] [facility] Mucus UA 1+ /LPF 07/29/2024 4:21 PM [facility] Yeast Budding UA Few(A) None /HPF 07/29/19 4:21 PM [employer] [facility] Calcium Oxalate UA Occasional( A) None /HPF 07/29/2024 4:21 PM [employer] [facility] Urine URINE SPECIMEN OBTAINED BY CLEAN CATCH PROCEDURE / Unknown Collection / Unknown 07/29/2024 3:51 PM [employer] 07/29/2024 4:04 PM [employer] Narrative [facility] - 07/29/2024 4:21 PM [employer] Lab Status, Culture Reflex Indicated. Ulices Vides MD LAB - URINALYSIS ORD ERABLES [facility] [address] [place], [place] [id number], [place] [phone] * CULTURE URINE (07/29/2024 3:51 PM [employer]) Only the most recent of4 resultswithin the time period is included. Culture Urine 10,000-50,000 CFU/mL urogenital reese SHIMA 07/31/2024 5:43 AM [employer] FOR [employer] [facility] Urine URINE SPECIMEN OBTAINED BY CLEAN CATCH PROCEDURE / Unknown Collection / Unknown 07/29/2024 3:51 PM [employer] 07/29/2024 4:20 PM [employer] Ulices Vides MD LAB - MICROBIOLOGY O RDERABLES [facility] [address] [place] [address], [place] [phone] * (ABNORMAL) CULTURE FUNGUS OTHER+FUNGUS SMEAR (07/29/2024 3:45 PM [employer]) Culture Moderate Holli glabrata(A) SHIMA 08/22/2024 7:43 AM CDT [facility] Fungus Stain Rare Yeast(A) 08/22/2024 7:43 AM T [facility]CRO[facility] Microbiology URINE SPECIMEN OBTAINED BY CLEAN CATCH PROCEDURE / Unknown Collection / Unknown 07/29/2024 3:45 PM [employer] 07/29/2024 4:06 PM [employer] Ulices Vides MD LAB - MICROBIOLOGY O RDERABLES [facility] [address] [place] [address], [facility] [phone] * NM CYSTOSCOPY,REMV CALCULUS,COMPLIC (07/14/2024 2:03 PM [employer]) Narrative Salud Connelly APRN-CNP - 07/14/2024 2:03 PM [employer] Salud Connelly APRN-CNP 07/14/2024 2:10 PM Cystoscopy [...] Montejo Salud RUIZ PROCEDURE/MINOR SURGICAL ORDERABLES * NM INSERT TEMP INDWELL BLADD CATH (07/14/2024 12:46 PM [employer]) Narrative Salud Connelly APRN-CNP - 07/14/2024 12:46 PM [employer] Salud Connelly APRN-CNP 07/14/2024 2:10 PM Procedure: [...] performed, see note SARA Brunson 07/14/2024 [facility] PROCEDURE/MINOR SURGICAL ORDERABLES * (ABNORMAL) GLUCOSE - POINT OF CARE (06/28/2024 5:15 PM [employer]) Only the most recent of40 resultswithin the time period is included. Pathologist [facility] Glucose WB/POC 130(H) 70 - 99 mg/dL 06/28/2024 5:48 PM [employer] FOR [employer] [facility] Specimen Type Cap Fingerstick 2024 5:48 PM [employer] [facility] Blood BLOOD SPECIMEN / Unknown 06/28/2024 5:15 PM [employer] 06/28/2024 5:48 PM [employer] Case Monterroso MD LAB - POINT O F CARE ORDERABLES Performing Organization Address City/State/[facility] Co de Phone Number [facility] [address] [place] [address] * (ABNORMAL) VANCOMYCIN LEVEL TROUGH (06/28/2024 1:00 PM [employer]) Only the most recent of2 resultswithin the time period is included. Pathologist [facility] Vancomycin Trough 6.1(L) 10.0 - 20.0 ug/mL 06/28/2024 1:42 PM [employer] [facility] Blood BLOOD SPECIMEN / Unknown Venipuncture / Unknown 06/28/2024 1:00 PM [employer] 06/28/2024 1:03 PM [employer] Matheus Quesada MD LAB - CHEMIS TRY ORDERABLES Performing Organization Address City/[facility]/ZIP Co de Phone Number [facility] [address] [place], [place] [id number] * CBC W/O DIFFERENTIAL (06/28/2024 4:32 AM [employer]) Only the most recent of10 resultswithin the time period is included. WBC 6.4 4.0 - 10.7 x10E9/L 06/28/2024 4:47 AM [facility] RBC Count 4.01 3.90 - 5.20 x10E12/L 06/28/2024 4:47 AM [facility] Hemoglobin 12.8 11.9 - 15.8 g/dL 06/28/2024 4:47 AM [facility] Hematocrit 38.4 34.8 - 46.1 % 06/28/2024 4:47 AM [facility] MCV 95.8 80.0 - 98.0 fL 06/28/2024 4:47 AM [facility] MCH 31.9 26.7 - 33.6 pg 06/28/2024 4:47 AM [facility] MCHC 33.3 31.7 - 36.3 g/dL 06/28/2024 4:47 AM [facility] RDW-CV 12.1 11.3 - 14.8 % 06/28/2024 4:47 AM [facility] Platelet Count 226 150 - 420 x10E9/L 06/28/2024 4:47 AM [facility] MPV 8.5 7.8 - 11.4 fL 06/28/2024 4:47 AM [facility] Blood BLOOD SPECIMEN / Unknown Venipuncture / Unknown 06/28/2024 4:32 AM [employer] 06/28/2024 4:44 AM [employer] Chandan Bae MD LAB - HEMATOLOGY ORD ERABLES Performing Organization Address City/[facility]/ZIP Co de Phone Number [facility] [address] [place] [address] * (ABNORMAL) RENAL FUNCTION PANEL (06/28/2024 4:32 AM [employer]) Only the most recent of10 resultswithin the time period is included. Glucose 188(H) 70 - 99 mg/dL 06/28/2024 5:07 AM [facility] Sodium 133(L) 136 - 145 mmol/L 06/28/2024 5:07 AM [facility] Potassium 4.5 3.5 - 5.1 mmol/L 06/28/2024 5:07 AM [facility] Chloride 103 98 - 107 mmol/L 06/28/2024 5:07 AM [facility] CO2 23 22 - 29 mmol/L 06/28/2024 5:07 AM [facility] Calcium 8.8 8.4 - 10.4 mg/dL 06/28/2024 5:07 AM [facility] Anion Gap 7 6 - 16 mmol/L 06/28/2024 5:07 AM [facility] BUN 15 7 - 26 mg/dL 06/28/2024 5:07 AM [facility] Creatinine 0.64 0.57 - 1.11 mg/dL 06/28/2024 5:07 AM [facility] Albumin 3.8 3.4 - 5.0 gm/dL 06/28/2024 5:07 AM [facility] Phosphorus 3.0 2.5 - 4.5 mg/dL 06/28/2024 5:07 AM [facility] eGFR by CKD-EPI >90 >=90 mL/min/1.7 3 m2 06/28/2024 5:07 AM [facility] Blood BLOOD SPECIMEN / Unknown Venipuncture / Unknown 06/28/2024 4:32 AM [employer] 06/28/2024 4:44 AM [facility] Chandan Bae MD LAB - CHEMISTRY RK LUIS [facility] Organization Address City/State/ZIP Co de Phone Number [facility] [address] [place] [address] * CK BLOOD (06/28/2024 4:32 AM [facility]) Only the most recent of4 resultswithin the time period is included. CK 145 29 - 168 U/L 06/28/2024 6:46 AM [employer] FOR [employer] [facility] Blood BLOOD SPECIMEN / Unknown Venipuncture / Unknown 06/28/2024 4:32 AM [employer] 06/28/2024 4:44 AM [employer] Case Monterroso MD LAB - MACHINE SHOP SUPERVISOR RY ORDERABLES Performing Organization Address [facility] Co de Phone Number [facility] [address] [place] [address] * (ABNORMAL) VANCOMYCIN LEVEL PEAK (06/28/2024 4:32 AM [employer]) Vancomycin Peak 13.6(L) 25.0 - 40.0 ug/mL 06/28/2024 5:06 AM [employer] FOR [employer] [facility] Blood BLOOD SPECIMEN / Unknown Venipuncture / Unknown 06/28/2024 4:32 AM [employer] FOR [employer] 06/28/2024 4:44 AM [employer] Chandan Bae MD LAB - CHEMISTRY RK LUIS Performing Organization Address [facility] Co de Phone Number [facility] [address] [place] [address] * XR CHEST 1VW PORTABLE (06/26/2024 8:37 PM [employer]) Anatomical Region Laterality Modality Chest Radiographic Rosemary ging 06/27/2024 9:07 AM [employer] Impressions 06/27/2024 9:08 AM [employer] IMPRESSION: As above. > Interpreting Provider: Kody Rivera MD on 06/27/2024 9:08 AM Narrative 06/27/2024 9:08 AM [employer] PROCEDURE: XR CHEST 1VW PORTABLE DATE/TIME OF [...] METABOLIC PANEL (CALCIUM TOTAL) (06/26/2024 4:30 AM [employer] FOR [employer]) Glucose 122(H) 70 - 99 mg/dL 06/26/2024 5:58 AM [employer] [employer] [facility] Sodium 133(L) 136 - 145 mmol/L 06/26/2024 5:58 AM [facility] Potassium 4.2 3.5 - 5.1 mmol/L 06/26/2024 5:58 AM [facility] Chloride 100 98 - 107 mmol/L 06/26/2024 5:58 AM [facility] CO2 25 22 - 29 mmol/L 06/26/2024 5:58 AM [facility] Calcium 9.0 8.4 - 10.4 mg/dL 06/26/2024 5:58 AM [facility] Anion Gap 8 6 - 16 mmol/L 06/26/2024 5:58 AM [facility] BUN 12 7 - 26 mg/dL 06/26/2024 5:58 AM [facility] Creatinine 0.64 0.57 - 1.11 mg/dL 06/26/2024 5:58 AM [facility] eGFR by CKD-EPI >90 >=90 mL/min/1.7 3 m2 06/26/2024 5:58 AM [facility] Blood BLOOD SPECIMEN / Unknown Lab Venipuncture / Unknown 06/26/2024 4:30 AM [employer] 06/26/2024 5:17 AM [employer] FOR [employer] Chris Woodall MD LAB - CHEMISTRY RK LUIS [facility] Organization Address City/State/ZIP Co de Phone Number [facility] [address] [place] [address] * (ABNORMAL) URINALYSIS REFLEX MICROSCOPIC REFLEX CULTURE (06/26/2024 2:51 AM [employer]) Color UA Yellow Yellow, Straw 06/26/2024 3:30 AM [facility] Clarity UA Clear Clear 06/26/2024 3:30 AM [facility] Glucose UA Normal Normal 06/26/2024 3:30 AM [facility] Bilirubin UA Negative Negative 06/26/2024 3:30 AM [facility] Ketone UA Negative Negative 06/26/2024 3:30 AM [facility] Specific Mayer UA 1.033(H) 1.005 - 1.030 06/26/2024 3:30 AM [facility] Blood UA 3+(A) Negative 06/26/2024 3:30 AM [facility] pH UA 7.0 5.0 - 9.0 pH 06/26/2024 3:30 AM [facility] Protein UA Trace(A) Negative 06/26/2024 3:30 AM [facility] Urobilinogen UA Normal Normal mg/dL 06/26/2024 3:30 AM [facility] Nitrite UA Negative Negative 06/26/2024 3:30 AM [facility] Leukocyte UA 75 JUAN/uL(A) Negative 06/26/2024 3:30 AM [facility] RBC UA >100(A) 0 - 5 # /hpf 06/26/2024 3:30 AM [facility] WBC UA 6-10(A) 0 - 5 # /hpf 06/26/2024 3:30 AM [facility] Bacteria UA None Seen None Seen 06/26/2024 3:30 AM [facility] Squamous Epithelial Cells None Seen 0 - 5 /hpf 06/26/2024 3:30 AM [facility] Urine SUPRAPUBIC URINE SPECIMEN / Unknown Collection / Unknown 06/26/2024 2:51 AM [employer] 06/26/2024 3:17 AM [employer] Narrative [facility] - 06/26/2024 3:30 AM [employer] Chris Woodall MD LAB - URINALYSIS ORD ERABLES [facility] [address] [place] [address] * CBC W AUTO DIFFERENTIAL (06/25/2024 9:56 PM [employer]) WBC 8.6 4.0 - 10.7 x10E9/L 06/25/2024 10:07 PM [facility] RBC Count 4.20 3.90 - 5.20 x10E12/L 06/25/2024 10:07 PM [facility] Hemoglobin 13.3 11.9 - 15.8 g/dL 06/25/2024 10:07 PM [facility] Hematocrit 40.4 34.8 - 46.1 % 06/25/2024 10:07 PM [facility] MCV 96.2 80.0 - 98.0 fL 06/25/2024 10:07 PM [facility] MCH 31.7 26.7 - 33.6 pg 06/25/2024 10:07 PM [facility] MCHC 32.9 31.7 - 36.3 g/dL 06/25/2024 10:07 PM [facility] RDW-CV 12.3 11.3 - 14.8 % 06/25/2024 10:07 PM [facility] Platelet Count 224 150 - 420 x10E9/L 06/25/2024 10:07 PM [facility] MPV 8.6 7.8 - 11.4 fL 06/25/2024 10:07 PM [facility] Neutrophil % 69.8 41.0 - 74.0 % 06/25/2024 10:07 PM [facility] Lymphocyte % 21.5 17.0 - 47.0 % 06/25/2024 10:07 PM [facility] Monocyte % 5.9 3.0 - 11.0 % 06/25/2024 10:07 PM [facility] Eosinophil % 2.3 0.0 - 7.0 % 06/25/2024 10:07 PM [facility] Basophil % 0.2 0.0 - 1.6 % 06/25/2024 10:07 PM [facility] Immature Granulocytes % 0.3 0.0 - 1.0 % 06/25/2024 10:07 PM [facility] Neutrophil Absolute 6.01 1.60 - 7.50 x10E9/L 06/25/2024 10:07 PM [facility] Lymphocyte Absolute 1.85 1.00 - 4.40 x10E9/L 06/25/2024 10:07 PM [facility] Monocyte Absolute 0.51 0.15 - 1.00 x10E9/L 06/25/2024 10:07 PM [facility] Eosinophil Absolute 0.20 0.00 - 0.60 x10E9/L 06/25/2024 10:07 PM [facility] Basophil Absolute 0.02 0.00 - 0.13 x10E9/L 06/25/2024 10:07 PM [facility] Blood BLOOD SPECIMEN / Unknown Lab Venipuncture / Unknown 06/25/2024 9:56 PM [employer] FOR [employer] 06/25/2024 10:03 PM [facility] Chris Woodall MD LAB - HEMATOLOGY ORD ERABLES [facility] [address] [place] [address] * (ABNORMAL) COMPREHENSIVE METABOLIC PANEL (06/25/2024 9:56 PM [facility]) Glucose 163(H) 70 - 99 mg/dL 06/25/2024 10:26 PM [facility] Sodium 133(L) 136 - 145 mmol/L 06/25/2024 10:26 PM [facility] Potassium 4.2 3.5 - 5.1 mmol/L 06/25/2024 10:26 PM [facility] Chloride 101 98 - 107 mmol/L 06/25/2024 10:26 PM [facility] CO2 25 22 - 29 mmol/L 06/25/2024 10:26 PM [facility] Calcium 9.3 8.4 - 10.4 mg/dL 06/25/2024 10:26 PM [facility] Anion Gap 7 6 - 16 mmol/L 06/25/2024 10:26 PM [facility] BUN 12 7 - 26 mg/dL 06/25/2024 10:26 PM [facility] Creatinine 0.73 0.57 - 1.11 mg/dL 06/25/2024 10:26 PM [facility] Alkaline Phosphatase 53 40 - 150 U/L 06/25/2024 10:26 PM [facility] ALT 22 0 - 55 U/L 06/25/2024 10:26 PM [facility] AST 19 5 - 34 U/L 06/25/2024 10:26 PM [facility] Protein Total 7.1 6.4 - 8.3 gm/dL 06/25/2024 10:26 PM [facility] Albumin 3.9 3.4 - 5.0 gm/dL 06/25/2024 10:26 PM [facility] Bilirubin Total 0.3 0.2 - 1.2 mg/dL 06/25/2024 10:26 PM [facility] eGFR by CKD-EPI 89(L) >=90 mL/min/1.7 3 m2 06/25/2024 10:26 PM [facility] Blood BLOOD SPECIMEN / Unknown Lab Venipuncture / Unknown 06/25/2024 9:56 PM ASSEM[employer]ER FOR [employer] OVER HAND 06/25/2024 10:03 PM [facility] Chris Woodall MD LAB - CHEMISTRY RK LUIS [facility] Organization Address City/State/ZIP Co de Phone Number [facility] [address] [place] [address] * CULTURE BLOOD (06/25/2024 9:24 PM [facility]) Only the most recent of2 resultswithin the time period is included. Culture No growth day 5 SHIMA 07/01/2024 2:01 AM [facility] Blood PERIPHERAL BLOOD / Unknown Lab Venipuncture / Unknown 06/25/2024 9:24 PM [employer]SEM[employer] FOR [employer] OVER [employer] 06/25/2024 9:38 PM [employer] FOR [employer] OVER [employer] Chris Woodall MD LAB - MICROBIOLOGY O RDERABLES [facility] [address] [place] [address], [facility] [phone] * LACTIC ACID BLOOD REFLEX TO REPEAT (06/25/2024 9:18 PM ASSEM[employer]ER FOR [employer] OVER HAND) Lactic Acid 1.0 <=2.0 mmol/L 06/25/2024 10:26 PM ASSEM[employer]ER FOR [employer] OVER [employer] [facility] Blood BLOOD SPECIMEN / Unknown Lab Venipuncture / Unknown 06/25/2024 9:18 PM ASSEMBLER FOR P[employer] OVER HAND 06/25/2024 10:02 PM [employer] FOR [employer] OVER [employer] Chris Woodall MD LAB - CHEMISTRY RK LUIS Performing Organization Address City/[facility]/ZIP Co de Phone Number [facility] [address] [place] [address] * MAGNESIUM BLOOD (06/01/2024 3:07 AM ASSEM[employer]ER FOR [employer] OVER HAND) Only the most recent of8 resultswithin the time period is included. Magnesium 1.6 1.6 - 2.6 mg/dL 06/01/2024 4:27 AM ASSEMBLER FOR P[employer]ER OVER HAND [facility] Blood BLOOD SPECIMEN / Unknown Lab Venipuncture / Unknown 06/01/2024 3:07 AM [employer] FOR [employer] 06/01/2024 4:00 AM [employer] FOR [employer] Herbie Beauchamp MD LAB - CHEMISTRY RK LUIS [address] [phone], [facility] [phone] from Last 3 Months Additional Health Concerns [...] 8:23 PM 04/21/2024 9:10 AM Care Teams Social Media Marketing Specialist Relationship Specialty Start Date End Date Kaye Martinez MD [facility] [place] [address] [place] [address] PCP - General Emergency Medicine 01/26/24 Jamal Mendez MD [address] [facility] [address] [id number] Internal Medicine 01/26/24
--- OUTSIDE RECORDS SUMMARY | 2024-08-23 12:44 | XMS_ITS | Referral Summary ---
Author Organization [facility] Address [address] [place] [id number] Care Team Providers Care Direct Support Worker Name Role Phone Jeff Cook MD Primary Care Provider [phone] Allergies Active Allergy Reactions Criticality Noted Date [...] 1 tablet (88 mcg total) by mouth history card clerk before breakfast 3 Active losartan (COZAAR) 100 [...] by mouth daily before breakfast Active vit C,E-At-ccyan-loulou tein-zeaxan 250-90-40-1 mg capsule Take 1 capsule [...] before that. She has been seeing a Preparation Supervisor and failed the pessary (couldn't hold it [...] addressing these would be the answer for director long term care treatment. If this is delayed and patient [...] on file Legal Sex Female 6:10 PM ORDNANCE HANDLER Gender Identity Not on file Sexual Orientation Not on file Last Filed Vital Signs Vital Sign Reading Time Taken Comments Blood Pressure 123/57 04/29/2023 2:58 AM ORDNANCE HANDLER Pulse 80 04/29/2023 3:01 AM ORDNANCE HANDLER reche cked Temperature 36.5 C (97.7 F) 04/29/2023 2:58 AM ORDNANCE HANDLER Respiratory Rate 19 04/29/2023 8:14 AM ORDNANCE HANDLER Oxygen Saturation 95% 04/29/2023 2:58 AM ORDNANCE HANDLER Inhaled Oxygen Concentration - - Weight 72.8 kg (160 lb 7.9 oz) 04/16/2023 2:05 P M ORDNANCE HANDLER Height 172.7 cm (5' 8 ) 04/16/2023 2:05 PM ORDNANCE HANDLER Body Mass Index 24.4 04/16/2023 2:05 PM ORDNANCE HANDLER Plan of Treatment Not on file Medical Devices Implanted Type Area Rap Artist Device Identifier Shelf Expiration Date Model / Serial / Lot Pixate Vitaly Upsylon 35.4cm Elongation Profile Lightweight Large Pore Low [id number] - Sn/A - [id number] Implanted:Qty: 1 on 04/27/2023 by Chinmay Bauer MD at [facility] Mesh N/A: Urethra [employer] Vitaly [id number] 10/29/2025 [id number] / N/A / [id number] Insurance IDPA IDPA Advance Directives For more information, please contact: [phone] * Full Code (Latest Code Status on File) Date Activated Date Inactivated Comments 04/27/2023 3:58 PM 04/29/2023 3:59 PM Care Teams Direct Support Worker Relationship Specialty [place] [address] [place] [address] PCP - General Internal Medicine 08/25/22
--- OUTSIDE RECORDS SUMMARY | 2024-08-23 12:45 | XMS_ITS | Clinical Summary ---
Author Organization [facility] Address [address] [place] [address] Care Team Providers Care Load Out Supervisor Name Role Phone Kaye Martinez MD Primary Care Provider Allergies Active Allergy Reactions Criticality Noted Date [...] Department Care Team Description 07/27/2024 12:45 PM QUALITY CONTROL CLERK Office Visit [facility], [address] [address] Ana Corrales MD Peripheral Vascular Disease (10 mo follow up) 07/27/2024 Travel from Last 3 Months Family History [...] Comments Blood Pressure 138/60 07/27/2024 1:35 PM QUALITY CONTROL CLERK BARBARA EN BY Pulse 93 07/27/2024 1:02 PM QUALITY CONTROL CLERK Temperature 36.5 C (97.7 F) 02/10/2024 9:35 AM CDT Respiratory Rate - - Oxygen Saturation 93% 07/27/2024 1:02 PM QUALITY CONTROL CLERK Inhaled Oxygen Concentration - - Weight 77.1 kg (170 lb) 07/27/2024 1:02 PM QUALITY CONTROL CLERK Height 172.7 cm (5' 8 ) 07/27/2024 1:02 PM QUALITY CONTROL CLERK Body Mass Index 25.85 07/27/2024 1:02 PM QUALITY CONTROL CLERK Plan of Treatment Upcoming Encounters Date Type Department Care Team (Late st Contact Info) Description 09/30/2024 10:30 AM CDT Office Visit [facility], [address] [place], [place] [phone] Indira Preciado PA-C [address] [facility], [address] [place] [address] Health Maintenance Due Date Last Done Comments ASCVD Statin 1954 Colorectal Cancer Screening Colonoscopy (10 Years) 1954 Hepatitis C 1972 Mammogram Screening 1994 RSV Immunization or 60+ Years (1 - Risk 60-74 years 1-dose series) 2014 Annual Medicare Wellness Visit 11/09/2019 Dexa Scan (General) 11/09/2019 ASCVD LDL 09/17/2022 09/17/2021 COVID-19 Vaccine ( season) 2024 04/12/2023, 06/11/2022, 09/23/2021, Additional history exists PHQ-2 (Physician [place]) 06/01/2024 DTaP, Tdap and Td Vaccines (2 [...] Procedure Name Priority Date/Time Associated Diagnosis Comments LIPID PANEL Routine 09/17/2021 from Last 3 Months or Most Recently Relevant to Health Maintenance Results * (ABNORMAL) LIPID PANEL (09/17/2021) CHOLESTEROL 181 100 - 199 HDL 50 40 - 70 TRIGLYCERIDES 226(A) 0 - 149 LDL (CALCULATED) 93 0 - 99 VLDL CALCULATION 38 5 - 40 09/17/2021 us Default History Genericprovider LABORATORY Final Result from Last 3 Months or Most Recently Relevant to Health Maintenance Insurance MEDICAID [facility] Care Teams Load Out Supervisor Relationship Specialty Start Date End Date Kaye Martinez MD [address] [place] [phone] PCP - General EMERGENCY MEDICINE 08/31/23
--- OUTSIDE RECORDS SUMMARY | 2024-08-23 12:45 | XMS_ITS ---
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 She was seeing another shoe repairer apprentice for her nails, but she hasn't been [...] * Allergies: C odeineCyclobenzaprine Objective: * Vitals: S hoe Size: 8w, [...] damage to nail, initial encounter - S90.112A (Primary)? 2. F ungal infection of nail - B35.1 3 . U nspecified atherosclerosis of red devil arteries of extremities, bilateral legs - I70.203 4 . P ain in left toe(s) - M79.675 Plan: * Treatment: * Procedure Codes: * Follow Up: 9 weeks * Billing Information: * Visit Code: 15202 Office Visit, New Pt., Level 3. * Procedure Codes: * Sign off status: Completed true * Provider: Natasha Baker DPM Date: 0 12/10/2023 Generated for Bonnie moore/Davis/Benjamin on: 0 08/23/2024 12:44 PM CDT History and Physical Notes * [...] injured at home. She was seeing another shoe repairer apprentice for her nails, but she hasn't been [...]
== END 2024-08-23 10:44 | disposition home or self-care (01) ==
PROVIDERS: PCP Emergency Medicine; Visit Provider Emergency Medicine
DX: R60.0 Localized edema (principal); R06.00 Dyspnea, unspecified; R91.8 Other nonspecific abnormal finding of lung field; I51.7 Cardiomegaly
CPT/HCPCS: 36415; 71046; 83880